=== PATIENT | female | born 1960 | race Caucasian/White ===

== ENCOUNTER → 2017-07-15 09:46 | Outpatient (POV) | payer BC, SELFPAY ==
[2017-07-15 10:15] VITALS: BP 117/62; PULSE 62; RESP 18; BMI 33.4
--- NOTE | 2017-07-15 10:42 | P.CONS_ITS ---
[facility] Pain Management SOAP Note Subjective:: This patient is a pleasant 57-year-old white female who we are treating for low back pain with lumbar radiculopathy symptoms as well as sacroiliitis. She currently has an intrathecal hydromorphone/bupivacaine pain pump in place currently going at 0.75 mg per day. She is doing very well with her pump. She also did very well after the last right SI joint injection a month ago. She is active with less pain. She has no complaints at this time. Objective:: Alert and oriented ?3 in no acute distress. Patient has a normal gait. Motor strength of the lower extremities is 5/5. There is no gross sensory deficit. Pump interrogation shows intrathecal Dilaudid 10 mg/mL plus bupivacaine 5 mg per male currently going at 0.75 mg per day. Refill date at [facility] is 10/08/2017. Assessment:: Degenerative disc disease of lumbar spine with lumbar radiculopathy symptoms and postlaminectomy syndrome of lumbar spine Plan:: I am very pleased with her progress. She got good benefit from the right SI joint injection. She is also doing very well with her intrathecal Dilaudid/ bupivacaine pain pump. We will see her at her next pump refill in September.
== END ==
PROVIDERS: PCP Internal Medicine; Visit Provider Anesthesiology
DX: M51.16 Intervertebral disc disorders with radiculopathy, lumbar region (principal)
CPT/HCPCS: 99212

== ENCOUNTER 2017-08-01 06:07 | Day surgery (SDC) | payer BC, SELFPAY ==
[2017-07-31 10:51] VITALS: BMI 33.4
[2017-08-01] VITALS (16 sets, daily range): BP systolic 95–137; BP diastolic 52–81; PULSE 56–664; RESP 16–18; TEMP 6.1–43; O2SAT 93–100
[2017-08-01 07:03] LABS: POC Glucose,Bedside 93 mg/dL
--- NOTE | 2017-08-01 07:03 | P.PN_ITS ---
[facility] Anesthesia Checklist - Structural Data Admitted From: Home Planned Operative Procedure/s: hammertoe repair Consent for Planned Operative Procedure(s) Verified: Yes Verified Documents: Surgical Consent - NPO Status Verified Time NPO: 12:00 - Airway Assessment C-Spine Mobility Assessed: Yes TMJ Mobility Assessed: Yes Dentition: Good Dentition - Neurological Assessment Level of Consciousness: Awake, Alert - Anesthesia Plan Anesthesia Risk discussed: Yes Anesthesia Plan: Verified ASA Class: II Anesthesia Type: General [facility] Anesthesia HX Medical History: Reports:: Congestive Heart Failure, Diabetes Mellitus Type 2 ( DIET CONTROLLED), Gastroesophageal Reflux Disease(GERD), Hypertension, Migraine Denies:: Aneurysm, Arrhythmia, Asthma, Atrial Fibrillation, Cancer, Chronic Obstructive Pulmonary Disease (COPD), Coronary Artery Disease, Cerebrovascular Accident, Deep Vein Thrombosis, Diabetes Mellitus Type 1, Gastrointestinal Bleed , Hyperlipidemia, Internal Pacemaker, Kidney Stones, MRSA, Myocardial Infarction , Osteoporosis, Peripheral Artery Disease, Pulmonary Embolism, Renal Disease, Seizures, Supraventricular Tachycardia, Transient Ischemic Attacks (TIA), Valvular Heart Disease Other Medical History: Reports: Anemia, Arthritis, Cataracts (had them removed last year), Fibromyalgia. Denies: Blood Transfusion Reaction, Chemotherapy, Glaucoma, Acquired Immunodeficiency Syndrome (AIDS), HIV, Hoarseness, Hormone Therapy, Hypothyroidism, Liver Disease, Osteoporosis, Radiation Therapy, Sickle Cell Disease, Sinus Problems, Thyroid Disease, Unexplained Bleeding Laterality Cases: Right: Arthroscopy Knee Other Surgeries: Yes: Hysterectomy-Total, Other (stomach bypass, 4 hammertoes). No: Pacemaker Amputation: No Fractures: No Comment: [place] *Family Hx:: Diabetes, Heart Attack, Cancer, Hyperlipidemia, Hypertension, Kidney Disease, Thyroid Disorder
--- NOTE | 2017-08-01 08:22 | XR_ITS ---
XR foot RT 2V HISTORY: ITS.REASON: HAMMER TOE ORDERING PHYSICIAN: Kaela Lo DPM PATIENT AGE: 57 years COMPARISON: None FINDINGS: Multiple images submitted with the C-arm show interval placement of a pin through the distal middle and into the proximal phalanx of the third toe with straightening of the hammertoe deformity. Fluoroscopy time: 13 seconds. IMPRESSION: Postsurgical changes of the third toe as described above
--- NOTE | 2017-08-01 08:28 | HMH.OPNOTE ---
Date of procedure: 08/01/17 Pre-op Diagnosis:: Right 3rd digit hammertoe Post-op diagnosis:: same Procedure performed:: Right 3rd digit DIPJ AP Right 3rd digit PIPJ AD Surgeon:: Kaela Lo DPM REVIEW RN:: Philip Jamison Anesthesia: MAC Estimated blood loss (mL): 10 Clinical Note:: Ms. Kennedy is a pleasant 57 y/o diabetic female who presents for evaluation of painful right third digit hammertoe. Patient has had a history of hammertoes and surgical repair without complication. Over 10 years ago she had the left than the right second hammertoe repaired. She was seeing Dr. Jarett Noyola and had x-rays taken 02/05/16 of both feet for preop evaluation of 4th digit hammertoe surgery. She ended up having the surgery done to the left fourth toe on both sides in [place] by another physican about a year ago with no complications. Patient states she had a post op shoe and K-wire pins for 4 weeks. Patient complains of continued pain to the right third toe and states that the third toe now goes underneath the second which makes it painful to walk. She is wearing wider shoes which does help some. Pain is constant night and day. She has tried taping, sleeves, strapping which does not help anymore. She complains of the third toe is stiff and rigid and will not move from underneath the second. Patient is requesting surgical intervention. Patient is a well-controlled diabetic. Last A1c 03/26/17 5.9. She checks her sugars weekly. Her PCP is Dr. De La Torre and she saw him for medical clearance. HAMMERTOE, RIGHT 3RD DIGIT: Radiographs of both feet from 02/05/16 were reviewed and discussed with the patient. Also reviewed x-rays taken 06/09/17 which show fused PIPJ of digits 2 and 4 on right, and 2-4 left. Hammertoe contracture noted to right 3rd digit. We discussed conservative versus surgical treatment options. Conservative treatment options include change in shoe wear, prefab or custom molded inserts, strapping, taping and padding. Patient can also take NSAIDs, ice and elevate for pain and swelling. Discussed that patient would benefit from wider and deeper shoe wear to accommodate the deformity, which she has been wearing. We also discussed the procedure for correcting the hammertoe deformity and length of recovery. Patient would like to proceed with surgery for the right 3rd toe since she has failed conservative care. I discussed conservative vs surgical treatment for the hammertoe deformity. The patient has tried modification of shoe gear, taping, strapping, and has failed conservative treatment. The patient continues to have pain and worsening symptoms, affecting daily activities. I discussed the risks vs benefits of surgery to include: bleeding, infection, nerve or blood vessel damage, need for future surgery, need for removal of the implant, prolonged swelling of the digit, prolonged pain, RSD/CRPS, wound complications, DVT, and anesthetic complications. No guarantees were given. All questions fully answered. The patient verbalized understanding and agreed to proceed with surgery. Consent was obtained. Operative findings:: Right 3rd distal phalanx subluxing medially Right 3rd digit hammertoe Operative note:: On this date and time patient was deemed an appropriate surgical candidate. With informed consent signed, the patient was taken to the operating theater. The patient was positioned supine. MAC anesthesia was induced. Tourniquet was applied to the right mid-calf. Pre-op right ankle block given with 30 cc 0.5% marcaine plain. Right 3rd Digit PIPJ AD: The right lower extremity was prepped and drapped in normal sterile fashion. Tourniquet inflated at 225mmHg. Attention was directed to the right 3rd toe, where a dorsal linear incision was mapped out over the PIPJ extending distally over the DIPJ. Dissection was carried thru skin and sub q tissue, with care to maintain surgical hemostasis. Transverse tenotomy performed at the PIPJ, with release of the medial and lateral co
--- NOTE | 2017-08-01 08:32 | P.OP_ITS ---
Date of procedure: 08/01/17 Pre-op Diagnosis:: Right 3rd digit hammertoe Post-op diagnosis:: same Procedure performed:: Right 3rd digit DIPJ AP Right 3rd digit PIPJ AD Surgeon:: Kaela oL DPM SEED SERVICE ADVISOR:: Philip Jamison Anesthesia: MAC Estimated blood loss (mL): 10 Clinical Note:: Ms. Kennedy is a pleasant 57 y/o diabetic female who presents for evaluation of painful right third digit hammertoe. Patient has had a history of hammertoes and surgical repair without complication. Over 10 years ago she had the left than the right second hammertoe repaired. She was seeing Dr. Jarett Noyola and had x-rays taken of both feet for preop evaluation of 4th digit hammertoe surgery. She ended up having the surgery done to the left fourth toe on both sides in [place] by another physican about a year ago with no complications. Patient states she had a post op shoe and K-wire pins for 4 weeks. Patient complains of continued pain to the right third toe and states that the third toe now goes underneath the second which makes it painful to walk. She is wearing wider shoes which does help some. Pain is constant night and day. She has tried taping, sleeves, strapping which does not help anymore. She complains of the third toe is stiff and rigid and will not move from underneath the second. Patient is requesting surgical intervention. Patient is a well-controlled diabetic. Last A1c 03/26/17 5.9. She checks her sugars weekly. Her PCP is Dr. De La Torre and she saw him for medical clearance. HAMMERTOE, RIGHT 3RD DIGIT: Radiographs of both feet from 02/05/16 were reviewed and discussed with the patient. Also reviewed x-rays taken 06/09/17 which show fused PIPJ of digits 2 and 4 on right, and 2-4 left. Hammertoe contracture noted to right 3rd digit. We discussed conservative versus surgical treatment options. Conservative treatment options include change in shoe wear, prefab or custom molded inserts, strapping, taping and padding. Patient can also take NSAIDs, ice and elevate for pain and swelling. Discussed that patient would benefit from wider and deeper shoe wear to accommodate the deformity, which she has been wearing. We also discussed the procedure for correcting the hammertoe deformity and length of recovery. Patient would like to proceed with surgery for the right 3rd toe since she has failed conservative care. I discussed conservative vs surgical treatment for the hammertoe deformity. The patient has tried modification of shoe gear, taping, strapping, and has failed conservative treatment. The patient continues to have pain and worsening symptoms, affecting daily activities. I discussed the risks vs benefits of surgery to include: bleeding, infection, nerve or blood vessel damage, need for future surgery, need for removal of the implant, prolonged swelling of the digit , prolonged pain, RSD/CRPS, wound complications, DVT, and anesthetic complications. No guarantees were given. All questions fully answered. The patient verbalized understanding and agreed to proceed with surgery. Consent was obtained. Operative findings:: Right 3rd distal phalanx subluxing medially Right 3rd digit hammertoe Operative note:: On this date and time patient was deemed an appropriate surgical candidate. With informed consent signed, the patient was taken to the operating theater. The patient was positioned supine. MAC anesthesia was induced. Tourniquet was applied to the right mid-calf. Pre-op right ankle block given with 30 cc 0.5% marcaine plain. Right 3rd Digit PIPJ AD: The right lower extremity was prepped and drapped in normal sterile fashion. Tourniquet inflated at 225mmHg. Attention was directed to the right 3rd toe, where a
--- NOTE | 2017-08-01 09:18 | CA_ITS ---
CA echo doppler complete PROCEDURE: INDICATIONS FOR THE TEST: Chest pain+ COPD Heart Murmur Tobacco Smoking Palpitations Fatigue Syncope Edema Hypertension Diabetes Mellitus Rheumatic Fever SOB OREILLY Obesity+Hyperlipidemia Family History HD Additional History Patient began experiencing chest pain post toe surgery today PATIENT INFORMATION HEIGHT: 68 WEIGHT: 220 GENDER: Female B/P: 137/78 2-D/M-MODE INTERPRETATION: 2-D MEASUREMENTS OBSERVED VALUES IN CMS Right Ventricular Dimension (RVDd) 1.5 Interventricular Septum (Thickness)(IVsd) 1.2 Left Ventricular Internal Dimensions(LVIDd) 5.2 Left Ventricular Posterior Wall (Thickness)(LVPWd) 1.2 Aortic Root 3.1 Aortic Cusp Separation 2.1 Left Atrial Dimensions (LAD) 4.1 2D 1. Left atrium is mildly enlarged, left ventricle is normal size, there is mild concentric left ventricular hypertrophy, visually estimated ejection fraction 55% with no obvious regional wall motion abnormality. 2. The right atrium and right ventricle are normal size and contractility. 3. The aortic valve is minimally thickened and fibrosed. 4. The mitral and tricuspid valve are structurally normal 5. The pulmonic valve is poorly visualized. 6. No significant pericardial effusion noted. DOPPLER INTERROGATION: Doppler interrogation of the aortic, mitral and tricuspid valvular presence of mild mitral and tricuspid regurgitation, tricuspid and jet velocity is insufficient for calculation of the right ventricular systolic pressure, grade 1 diastolic dysfunction seen without tissue Doppler evidence of raised left atrial pressure. CONCLUSION: 1. Mildly enlarged left atrium, normal left ventricular size, mild concentric left ventricular hypertrophy, visually estimated ejection fraction 55% with no obvious regional wall motion abnormality, grade 1 diastolic dysfunction seen without tissue Doppler evidence of raised left atrial pressure. 2. Mild mitral and tricuspid regurgitation. 3. No significant pericardial effusion noted.
--- NOTE | 2017-08-01 09:20 | XR_ITS ---
XR chest portable HISTORY: Chest pain after surgery ITS.REASON: CHEST PAIN ORDERING PHYSICIAN: Kaela Lo DPM PATIENT AGE: 57 years COMPARISON: 06/26/2017 FINDINGS: There are low lung volumes with mild prominence of the cardiac silhouette likely related to the poor inspiration. There is evidence of old granulomatous disease and there is some minimal atelectatic change in the lung bases. No lobar consolidation or collapse. No evidence of pneumothorax. No acute bony anomalies. IMPRESSION: Low lung volumes with mild bibasilar atelectasis.
--- NOTE | 2017-08-01 10:28 | SUR.OPER ---
Injection @ 0034. Cut @ 1380. Pt has bruising noted to arm prior to coming into OR.
--- NOTE | 2017-08-01 11:28 | HMH.NBBLANK ---
[facility] Blank Note Date: 08/01/17 Time: 11:28 Narrative:: Cardiology consult note: Briefly Mrs. Kennedy is a pleasant 57-year-old female with history of hypertension , hyperlipidemia and diabetes, she had a cardiac cath done in April 2016 which shows normal coronary arteries, preserved left ventricular systolic function. She was electively admitted for outpatient to surgery, which she underwent this morning, postoperatively she developed chest discomfort which she described pressure and sharp pain worse with breathing. She describes no orthopnea. Afebrile chills nausea vomiting dizziness or syncope. Prior to this admission there was no symptoms suggestive of angina or congestive heart failure. Allergies: Cephalexin, morphine and penicillin. Social and family history is noncontributory Past medical history: Hypertension Diabetes Hyperlipidemia No history of coronary artery disease or prior myocardial infarction. Medications Home Medications aripiprazole 5 mg tablet 5 mg PO QDAY 07/16/17 [History Confirmed 08/01/17] ascorbic acid (vitamin C) 500 mg tablet 500 mg PO QDAY 07/16/17 [History Confirmed 08/01/17] aspirin 81 mg tablet,delayed release 81 mg PO QDAY 07/16/17 [History Confirmed 08/01/17] carvedilol 12.5 mg tablet 12.5 mg PO BID 07/16/17 [History Confirmed 08/01/17] cholecalciferol (vitamin D3) 400 unit capsule 400 unit PO QDAY 07/16/17 [History Confirmed 08/01/17] diclofenac 75 mg-misoprostol 200 mcg tablet,immediate,delayed release 1 tab PO BID 07/16/17 [History Confirmed 08/01/17] duloxetine 20 mg capsule,delayed release 30 mg PO QDAY 07/16/17 [History Confirmed 08/01/17] ferrous sulfate ER 142 mg (45 mg iron) tablet,extended release 142 mg PO QDAY tab 07/16/17 [History Confirmed 08/01/17] ibuprofen 800 mg tablet 800 mg PO ONCE 07/16/17 [History Confirmed 07/31/17] lamotrigine ER 300 mg tablet,extended release 24 hr 200 mg PO QDAY tab 07/16/17 [History Confirmed 08/01/17] montelukast 10 mg tablet 10 mg PO QHS 07/16/17 [History Confirmed 08/01/17] omeprazole 40 mg capsule,delayed release 40 mg PO QDAY 07/16/17 [History Confirmed 08/01/17] oxcarbazepine 300 mg tablet 300 mg PO BID 07/16/17 [History Confirmed 08/01/17] ranitidine 300 mg capsule 300 mg PO QHS 07/16/17 [History Confirmed 08/01/17] triamterene 37.5 mg-hydrochlorothiazide 25 mg tablet 1 tab PO QDAY 07/16/17 [History Confirmed 08/01/17] Bupivacaine HCl/Pf [Bupivacaine 0.25% Syringe] 0.38 mg IT DAILY 07/31/17 [History Confirmed 08/01/17] Gabapentin [Gabapentin 800mg Tab] 800 mg PO DAILY 07/31/17 [History Confirmed 08/01/17] Hydromorphone HCl/Pf [Dilaudid 0.5mg/0.5ml inj] 0.75 mg IT DAILY 07/31/17 [History Confirmed 08/01/17] Lactated Ringer's (Lactated Ringer's 1000 Ml Bag) 1,000 mls @ 25 mls/hr IV .Q25H ANDI Stop: 08/02/17 22:29 Last Admin: 08/01/17 06:27 Dose: 25 mls/hr Physical exam Vital Signs Temp Pulse Resp BP Pulse Ox 08/01/17 10:51 65 18 95/62 93 L 08/01/17 10:33 664 H 16 119/64 94 L 08/01/17 10:20 64 16 115/70 94 L 08/01/17 10:02 63 16 133/80 99 08/01/17 09:50 63 16 137/78 99 08/01/17 09:35 63 18 117/78 99 08/01/17 09:20 58 L 18 126/81 100 08/01/17 09:05 56 L 18 131/80 100 08/01/17 08:50 65 18 126/79 100 08/01/17 08:35 67 18 121/58 96 08/01/17 08:20 98.0 F 68 18 136/71 99 08/01/17 06:35 98.0 F 72 18 131/60 97 HEENT examination no JVP no bruits no thyromegaly Lungs are clear to auscultation Cardiac exam S1-S2 no S3 Abdomen soft bowel sounds present Extremities are without clubbing cyanosis or edema Impression: 1 atypical chest pain noncardiac, a stat bedside echocardiogram showed normal left ventricular size and function without segmental wall motion abnormality, with grade 1 diastolic dysfunction. 2. Hypertension hypertensive heart disease 3. Hyperlipidemia 4. Diabetes mellitus. Recommend: No further cardiac workup is necessary at this point. As this is noncardiac chest pain
--- NOTE | 2017-08-01 11:34 | P.PN_ITS ---
[facility] Blank Note Date: 08/01/17 Time: 11:28 Narrative:: Cardiology consult note: Briefly Mrs. Kennedy is a pleasant 57-year-old female with history of hypertension , hyperlipidemia and diabetes, she had a cardiac cath done in April 2016 which shows normal coronary arteries, preserved left ventricular systolic function. She was electively admitted for outpatient to surgery, which she underwent this morning, postoperatively she developed chest discomfort which she described pressure and sharp pain worse with breathing. She describes no orthopnea. Afebrile chills nausea vomiting dizziness or syncope. Prior to this admission there was no symptoms suggestive of angina or congestive heart failure. Allergies: Cephalexin, morphine and penicillin. Social and family history is noncontributory Past medical history: Hypertension Diabetes Hyperlipidemia No history of coronary artery disease or prior myocardial infarction. Medications Home Medications aripiprazole 5 mg tablet 5 mg PO QDAY 07/16/17 [History Confirmed 08/01/17] ascorbic acid (vitamin C) 500 mg tablet 500 mg PO QDAY 07/16/17 [History Confirmed 08/01/17] aspirin 81 mg tablet,delayed release 81 mg PO QDAY 07/16/17 [History Confirmed 08/01/17] carvedilol 12.5 mg tablet 12.5 mg PO BID 07/16/17 [History Confirmed 08/01/17] cholecalciferol (vitamin D3) 400 unit capsule 400 unit PO QDAY 07/16/17 [ History Confirmed 08/01/17] diclofenac 75 mg-misoprostol 200 mcg tablet,immediate,delayed release 1 tab PO BID 07/16/17 [History Confirmed 08/01/17] duloxetine 20 mg capsule,delayed release 30 mg PO QDAY 07/16/17 [History Confirmed 08/01/17] ferrous sulfate ER 142 mg (45 mg iron) tablet,extended release 142 mg PO QDAY tab 07/16/17 [History Confirmed 08/01/17] ibuprofen 800 mg tablet 800 mg PO ONCE 07/16/17 [History Confirmed 07/31/17] lamotrigine ER 300 mg tablet,extended release 24 hr 200 mg PO QDAY tab [History Confirmed 08/01/17] montelukast 10 mg tablet 10 mg PO QHS 07/16/17 [History Confirmed 08/01/17] omeprazole 40 mg capsule,delayed release 40 mg PO QDAY 07/16/17 [History Confirmed 08/01/17] oxcarbazepine 300 mg tablet 300 mg PO BID 07/16/17 [History Confirmed 08/01/17] ranitidine 300 mg capsule 300 mg PO QHS 07/16/17 [History Confirmed 08/01/17] triamterene 37.5 mg-hydrochlorothiazide 25 mg tablet 1 tab PO QDAY 07/16/17 [ History Confirmed 08/01/17] Bupivacaine HCl/Pf [Bupivacaine 0.25% Syringe] 0.38 mg IT DAILY 07/31/17 [ History Confirmed 08/01/17] Gabapentin [Gabapentin 800mg Tab] 800 mg PO DAILY 07/31/17 [History Confirmed ] Hydromorphone HCl/Pf [Dilaudid 0.5mg/0.5ml inj] 0.75 mg IT DAILY 07/31/17 [ History Confirmed 08/01/17] Lactated Ringer's (Lactated Ringer's 1000 Ml Bag) 1,000 mls @ 25 mls/hr IV .Q25H ANDI Stop: 08/02/17 22:29 Last Admin: 08/01/17 06:27 Dose: 25 mls/hr Physical exam Vital Signs Temp Pulse Resp BP Pulse Ox 08/01/17 10:51 65 18 95/62 93 L 08/01/17 10:33 664 H 16 119/64 94 L 08/01/17 10:20 64 16 115/70 94 L 08/01/17 10:02 63 16 133/80 99 08/01/17 09:50 63 16 137/78 99 08/01/17 09:35 63 18 117/78 99 08/01/17 09:20 58 L 18 126/81 100 08/01/17 09:05 56 L 18 131/80 100 08/01/17 08:50 65 18 126/79 100 08/01/17 08:35 67 18 121/58 96 08/01/17 08:20 98.0 F 68 18 136/71 99 08/01/17 06:35 98.0 F 72 18 131/60 97 HEENT examination no JVP no bruits no thyromegaly Lungs are clear to auscultation Cardiac exam S1-S2 no S3 Abdomen soft bowel sounds present Extre
--- NOTE | 2017-08-01 12:08 | XR_ITS ---
XR foot RT min 3V HISTORY: Surgery follow-up ITS.REASON: post op ORDERING PHYSICIAN: Kaela Lo DPM PATIENT AGE: 57 years COMPARISON: 06/09/2017 FINDINGS: A wire has been placed extending from the tip of the distal phalanx to the proximal aspect of the proximal phalanx of the third toe with resultant straightening of the flexion deformity with good alignment. No change chronic deformity proximal phalanx of the fifth toe. IMPRESSION: Postsurgical changes of the third toe as described above
== END 2017-08-01 12:28 | disposition home or self-care (01) ==
PROVIDERS: Family Provider Nurse Practitioner Family; PCP Internal Medicine; Visit Provider Podiatrist
PROC: (CPT 28285; principal; 2017-08-01 07:30)
DX: M20.41 Other hammer toe(s) (acquired), right foot (principal); E11.9 Type 2 diabetes mellitus without complications; I50.9 Heart failure, unspecified
CPT/HCPCS: 28285; 71045; 73620; 73630; 76000; 82962; 93005; 93306; 96374; C1762

== ENCOUNTER → 2017-08-19 08:09 | Outpatient (CLI) | payer BC, SELFPAY ==
--- NOTE | 2017-08-19 | XR_ITS ---
XR foot RT min 3V HISTORY: Follow-up surgery ITS.REASON: POST OP VIEWS..FIXED 3RD HAMMER TOE ORDERING PHYSICIAN: Kaela Lo DPM PATIENT AGE: 57 years COMPARISON: 08/01/2017 FINDINGS: There is been notable change in the prior osteotomy of the distal aspect of the proximal phalanx of the third toe with displacement Y or extending from the tip of the distal phalanx into the proximal aspect of the proximal phalanx with good alignment. Prior fusion of the PIP of the second toe. Flexion deformity involving the fifth toe with mild lateral subluxation of the middle phalanx of the fifth toe. IMPRESSION: Overall no change in good alignment postsurgical changes of the third toe
== END ==
PROVIDERS: Visit Provider Podiatrist
DX: Z98.890 Other specified postprocedural states (principal)
CPT/HCPCS: 73630

== ENCOUNTER → 2017-09-02 08:06 | Outpatient (CLI) | payer BC, SELFPAY ==
--- NOTE | 2017-09-02 | XR_ITS ---
XR foot RT min 3V HISTORY: Follow-up surgery ITS.REASON: POST OP HAMMER TOE ORDERING PHYSICIAN: Kaela Lo DPM PATIENT AGE: 57 years COMPARISON: 08 19 17 FINDINGS: Remains a hand within the third toe extending from the distal phalanx to the proximal phalanx. There is been osteotomy of the PIP joint. There has been prior fusion of the PIP of the second toe. There remains mild lateral subluxation of the distal phalanx of the fifth toe. IMPRESSION: Overall no change status post osteotomy of the PIP joint of the third digit with fixation pin present
== END ==
PROVIDERS: Visit Provider Podiatrist
DX: Z98.890 Other specified postprocedural states (principal)
CPT/HCPCS: 73630

== ENCOUNTER → 2017-09-08 10:32 | Outpatient (POV) | payer BC, SELFPAY ==
[2017-09-08 10:48] VITALS: BP 135/75; PULSE 60; RESP 16; O2SAT 97; BMI 33.4
--- NOTE | 2017-09-08 12:49 | HMH.PAINSOAP ---
[facility] Pain Management SOAP Note Subjective:: Patient is a pleasant 57-year-old white female who we are treating in our pain clinic for pain secondary to degenerative disc disease of the lumbar spine, postlaminectomy syndrome of the lumbar spine, sacroiliitis. Patient has had right SI joint injections in the past. She has done very well with these she has had up to 90% relief for several weeks after the injections. Patient is interested in discussing of right SI rhizotomy. Patient is currently being managed for her back pain with intrathecal pain pump. Patient has Dilaudid 0.75 mg a day and bupivacaine 0.375 mg a day. Patient states her back pain is doing fairly well today. Patient is also on gabapentin 800 mg 4 times a day. Patient states that this is not helping her radicular symptoms. 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 Patient rates her pain at 7 out of 10 today. She states her pain is achy and dull and at some points shocking. Patient is looking for more long-term relief options in order to be more functional and continue working. Patient has recently had hammertoe surgery and been released by her casing blower. ROS General: no recent weight change, no fever, no sleep disturbances Respiratory: no cough, no shortness of air, no recurring pulmonary infections Cardiovascular/Peripheral Vascular: No chest pain, No palpitations, no edema, no shortness of breath. Gastrointestinal: no incontinence, normal bowel movements reported Genitourinary: no incontinence Musculoskeletal: Bilateral sacroiliitis, chronic lumbar back pain Psychiatric: normal mood/ affect Neurological: [denies weakness in extremities], [denies balance issues] Objective:: Physical Exam General: Alert and oriented x3, no acute distress, pleasant and cooperative, [on room air] Lungs: Resps E/U, Symmetrical chest expansion, Eyes: PERRL Musculoskeletal: Flexion and extension of lumbar spine somewhat guarded secondary to pain, deep tendon reflexes normal, strength in upper and lower extremities [5/5], [abnormal gait noted], positive Maverick's test on the right side, extreme point tenderness over right SI joint Neurological: speech clear, drawer in plain loom equal, no gross sensory deficits Assessment:: Right sacroiliitis, postlaminectomy syndrome, degenerative disc disease of the lumbar spine with lumbar radiculopathy Plan:: We will plan a right SI joint rhizotomy. We will also increase her bupivacaine in her pump to 10 mg/mL at her next pump refill. We will not make any pump adjustments at this time. Patient has tried and failed physical therapy, anti-inflammatories, medications. Patient has had good long-term relief with her right SI joint injections. This note was dictated using voice recognition software and may contain errors or omissions
--- NOTE | 2017-09-08 12:52 | P.CONS_ITS ---
[facility] Pain Management SOAP Note Subjective:: Patient is a pleasant 57-year-old white female who we are treating in our pain clinic for pain secondary to degenerative disc disease of the lumbar spine, postlaminectomy syndrome of the lumbar spine, sacroiliitis. Patient has had right SI joint injections in the past. She has done very well with these she has had up to 90% relief for several weeks after the injections. Patient is interested in discussing of right SI rhizotomy. Patient is currently being managed for her back pain with intrathecal pain pump. Patient has Dilaudid 0.75 mg a day and bupivacaine 0.375 mg a day. Patient states her back pain is doing fairly well today. Patient is also on gabapentin 800 mg 4 times a day. Patient states that this is not helping her radicular symptoms. 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 Patient rates her pain at 7 out of 10 today. She states her pain is achy and dull and at some points shocking. Patient is looking for more long-term relief options in order to be more functional and continue working. Patient has recently had hammertoe surgery and been released by her agricultural purchasing agent. ROS General: no recent weight change, no fever, no sleep disturbances Respiratory: no cough, no shortness of air, no recurring pulmonary infections Cardiovascular/Peripheral Vascular: No chest pain, No palpitations, no edema, no shortness of breath. Gastrointestinal: no incontinence, normal bowel movements reported Genitourinary: no incontinence Musculoskeletal: Bilateral sacroiliitis, chronic lumbar back pain Psychiatric: normal mood/ affect Neurological: [denies weakness in extremities], [denies balance issues] Objective:: Physical Exam General: Alert and oriented x3, no acute distress, pleasant and cooperative, [ on room air] Lungs: Resps E/U, Symmetrical chest expansion, Eyes: PERRL Musculoskeletal: Flexion and extension of lumbar spine somewhat guarded secondary to pain, deep tendon reflexes normal, strength in upper and lower extremities [5/5], [abnormal gait noted], positive Maverick's test on the right side, extreme point tenderness over right SI joint Neurological: speech clear, associate professor of communication equal, no gross sensory deficits Assessment:: Right sacroiliitis, postlaminectomy syndrome, degenerative disc disease of the lumbar spine with lumbar radiculopathy Plan:: We will plan a right SI joint rhizotomy. We will also increase her bupivacaine in her pump to 10 mg/mL at her next pump refill. We will not make any pump adjustments at this time. Patient has tried and failed physical therapy, anti- inflammatories, medications. Patient has had good long-term relief with her right SI joint injections. This note was dictated using voice recognition software and may contain errors or omissions
== END ==
PROVIDERS: Family Provider Nurse Practitioner Family; PCP Internal Medicine; Visit Provider Clinical Nurse Specialist Family Health
DX: M96.1 Postlaminectomy syndrome, not elsewhere classified (principal); M46.1 Sacroiliitis, not elsewhere classified
CPT/HCPCS: 99212

== ENCOUNTER → 2017-10-14 09:58 | Outpatient (POV) | payer BC, SELFPAY ==
[2017-10-14 10:04] VITALS: BP 135/66; PULSE 71; RESP 20; O2SAT 97; BMI 34.9
--- NOTE | 2017-10-14 10:36 | HMH.PAINSOAP ---
[facility] Pain Management SOAP Note Subjective:: Patient is a pleasant 57-year-old white female who are treating in our pain clinic for pain secondary to degenerative disc disease of the lumbar spine, post ectomy syndrome of the lumbar spine, sacroiliitis. Patient has had her SI joint injections in the past. She has done very well with the she has had up to 90% relief for several weeks after the injections. Patient and I discussed SI rhizotomy at her last visit however her insurance denied this. Patient is currently being managed for her back pain with an intrathecal pain pump patient has Dilaudid 0.75 mg a day and bupivacaine 0.375 mg a day patient states that this manages her back pain almost completely. Patient also on gabapentin 800 mg 1 p.o. 4 times daily. Patient has not tried Lyrica. I believe this change may be beneficial for her due to her nerve pain and radicular pain. 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 Patient rates her pain a 5 out of 10 today. She states her pain is achy and dull and at some points shocking. ROS General: no recent weight change, no fever, no sleep disturbances Respiratory: no cough, no shortness of air, no recurring pulmonary infections Cardiovascular/Peripheral Vascular: No chest pain, No palpitations, no edema, no shortness of breath. Gastrointestinal: no incontinence, normal bowel movements reported Genitourinary: no incontinence Musculoskeletal: Bilateral sacroiliitis, chronic lumbar back pain Psychiatric: normal mood/ affect, Neurological: [denies weakness in extremities], [denies balance issues] Objective:: Physical Exam General: Alert and oriented x3, no acute distress, pleasant and cooperative, [on room air] Lungs: Resps E/U, Symmetrical chest expansion, Eyes: PERRL Musculoskeletal: Flexion and extension of lumbar spine somewhat guarded secondary to pain, deep tendon reflexes normal, strength in upper and lower extremities [5/5], slightly antalgic gait noted, positive Maverick's test bilaterally, extreme point tenderness over bilateral SI joints Neurological: speech clear, automation software engineer equal, no gross sensory deficits Assessment:: Degenerative disc disease of the lumbar spine, lumbar radiculopathy, postlaminectomy syndrome of the lumbar spine, bilateral sacroiliitis Plan:: We will call in Lyrica 75 mg 1 p.o. twice daily for the patient. She will stop taking her gabapentin. Patient's tried and failed gabapentin, amitriptyline, Cymbalta. Patient's tried and failed anti-inflammatories and physical therapy. We will schedule bilateral SI joint injections for this patient due to her recent insurance denial for her risotto me of her SI joint. We will also send her to Dr. Rand for an evaluation of an SI joint fusion. Patient and I also discussed possibly a neurostimulator. We will follow-up with this patient at her next pain pump refill. This note was dictated using voice recognition software and may contain errors or omissions
--- NOTE | 2017-10-14 10:40 | P.CONS_ITS ---
[facility] Pain Management SOAP Note Subjective:: Patient is a pleasant 57-year-old white female who are treating in our pain clinic for pain secondary to degenerative disc disease of the lumbar spine, post ectomy syndrome of the lumbar spine, sacroiliitis. Patient has had her SI joint injections in the past. She has done very well with the she has had up to 90% relief for several weeks after the injections. Patient and I discussed SI rhizotomy at her last visit however her insurance denied this. Patient is currently being managed for her back pain with an intrathecal pain pump patient has Dilaudid 0.75 mg a day and bupivacaine 0.375 mg a day patient states that this manages her back pain almost completely. Patient also on gabapentin 800 mg 1 p.o. 4 times daily. Patient has not tried Lyrica. I believe this change may be beneficial for her due to her nerve pain and radicular pain. 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 Patient rates her pain a 5 out of 10 today. She states her pain is achy and dull and at some points shocking. ROS General: no recent weight change, no fever, no sleep disturbances Respiratory: no cough, no shortness of air, no recurring pulmonary infections Cardiovascular/Peripheral Vascular: No chest pain, No palpitations, no edema, no shortness of breath. Gastrointestinal: no incontinence, normal bowel movements reported Genitourinary: no incontinence Musculoskeletal: Bilateral sacroiliitis, chronic lumbar back pain Psychiatric: normal mood/ affect, Neurological: [denies weakness in extremities], [denies balance issues] Objective:: Physical Exam General: Alert and oriented x3, no acute distress, pleasant and cooperative, [ on room air] Lungs: Resps E/U, Symmetrical chest expansion, Eyes: PERRL Musculoskeletal: Flexion and extension of lumbar spine somewhat guarded secondary to pain, deep tendon reflexes normal, strength in upper and lower extremities [5/5], slightly antalgic gait noted, positive Maverick's test bilaterally, extreme point tenderness over bilateral SI joints Neurological: speech clear, body shop supervisor equal, no gross sensory deficits Assessment:: Degenerative disc disease of the lumbar spine, lumbar radiculopathy, postlaminectomy syndrome of the lumbar spine, bilateral sacroiliitis Plan:: We will call in Lyrica 75 mg 1 p.o. twice daily for the patient. She will stop taking her gabapentin. Patient's tried and failed gabapentin, amitriptyline, Cymbalta. Patient's tried and failed anti-inflammatories and physical therapy. We will schedule bilateral SI joint injections for this patient due to her recent insurance denial for her risotto me of her SI joint. We will also send her to Dr. Rand for an evaluation of an SI joint fusion. Patient and I also discussed possibly a neurostimulator. We will follow-up with this patient at her next pain pump refill. This note was dictated using voice recognition software and may contain errors or omissions
[2017-10-14 12:44] LABS: Amphetamine/Metha Screen,Urine Negative ng/mL (<1000); Barbiturates Screen,Urine Negative ng/mL (<200); Benzodiazepines Screen,Urine Negative ng/mL (200); Cannabinoid Screen,Urine Negative ng/mL (<50); Cocaine Screen,Urine Negative ng/g (<300); Methadone Screen,Urine Negative ng/mL (<300); Opiate Screen,Urine Positive ng/mL (<300); Phencyclidine Screen,Urine Negative ng/mL (<25)
--- NOTE | 2017-10-14 13:32 | PC.PHONENOTE ---
called in Rx for Lyrica 75mg BID with 2 refills and cancelled RX for Gabapentin
[2017-10-21 16:29] LABS: Codeine Negative (Cutoff=100); Hydrocodone Negative (Cutoff=100); Hydromorphone Positive (.); Morphine Negative (Cutoff=100)
[2017-10-23 15:49] LABS: Opiates Positive (.)
== END ==
PROVIDERS: Family Provider Nurse Practitioner Family; PCP Internal Medicine; Visit Provider Clinical Nurse Specialist Family Health
DX: M51.16 Intervertebral disc disorders with radiculopathy, lumbar region (principal); Z79.899 Other long term (current) drug therapy
CPT/HCPCS: 80305; 80361; 80365; 99212; G0480

== ENCOUNTER → 2017-11-24 14:41 | Outpatient (POV) | payer BC, SELFPAY ==
[2017-11-24 15:04] VITALS: BP 148/85; PULSE 67; RESP 20; TEMP 36.6; O2SAT 99; BMI 36.0
--- NOTE | 2017-11-24 15:19 | HMH.PAINSOAP ---
[facility] Pain Management SOAP Note Subjective:: She is a pleasant 57-year-old white female who presents today for follow-up. Patient recently had bilateral SI joint injections. She states that she is 80-90% her. Patient is having a new onset of bilateral leg weakness. Patient states that she has this sensation of her legs giving way on her. Patient rates her pain a 7 out of 10 today. Patient is currently on an intrathecal pain pump that has Dilaudid at 0.75 mg a day with bupivacaine at 0.375 mg a day. Patient rates her pain a 5 out of 10 today. Patient states that intrathecal pain pump helps with most of her back pain.. ROS General: no recent weight change, no fever, no sleep disturbances Respiratory: no cough, no shortness of air, no recurring pulmonary infections Cardiovascular/Peripheral Vascular: No chest pain, No palpitations, no edema, no shortness of breath. Gastrointestinal: no incontinence, normal bowel movements reported Genitourinary: no incontinence Musculoskeletal: Lateral sacroiliitis, chronic lumbar back pain Psychiatric: normal mood/ affect, [denies depression], [denies anxiety] Neurological: New onset of bilateral leg weakness, [denies balance issues] Objective:: Physical Exam General: Alert and oriented x3, no acute distress, pleasant and cooperative, [on room air] Lungs: Resps E/U, Symmetrical chest expansion, Eyes: PERRL Musculoskeletal: Flexion and extension of lumbar spine somewhat guarded secondary to pain, deep tendon reflexes normal, strength in upper and lower extremities [5/5], [abnormal gait noted], bilateral straight leg raise test positive at 30? Neurological: speech clear, director of trauma equal, no gross sensory deficits Assessment:: Degenerative disc disease of the lumbar spine, lumbar radiculopathy, postlaminectomy syndrome of the lumbar spine, bilateral sacroiliitis, canal stenosis Plan:: Order a new MRI due to the patient's new onset of bilateral lower leg weakness. I believe that this will be beneficial. Patient also has severe canal stenosis in which she gets relief from leaning forward. 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 Discussed this after we see the new MRI results. This note was dictated using voice recognition software and may contain errors or omissions
--- NOTE | 2017-11-24 15:23 | P.CONS_ITS ---
[facility] Pain Management SOAP Note Subjective:: She is a pleasant 57-year-old white female who presents today for follow-up. Patient recently had bilateral SI joint injections. She states that she is 80- 90% her. Patient is having a new onset of bilateral leg weakness. Patient states that she has this sensation of her legs giving way on her. Patient rates her pain a 7 out of 10 today. Patient is currently on an intrathecal pain pump that has Dilaudid at 0.75 mg a day with bupivacaine at 0.375 mg a day. Patient rates her pain a 5 out of 10 today. Patient states that intrathecal pain pump helps with most of her back pain.. ROS General: no recent weight change, no fever, no sleep disturbances Respiratory: no cough, no shortness of air, no recurring pulmonary infections Cardiovascular/Peripheral Vascular: No chest pain, No palpitations, no edema, no shortness of breath. Gastrointestinal: no incontinence, normal bowel movements reported Genitourinary: no incontinence Musculoskeletal: Lateral sacroiliitis, chronic lumbar back pain Psychiatric: normal mood/ affect, [denies depression], [denies anxiety] Neurological: New onset of bilateral leg weakness, [denies balance issues] Objective:: Physical Exam General: Alert and oriented x3, no acute distress, pleasant and cooperative, [ on room air] Lungs: Resps E/U, Symmetrical chest expansion, Eyes: PERRL Musculoskeletal: Flexion and extension of lumbar spine somewhat guarded secondary to pain, deep tendon reflexes normal, strength in upper and lower extremities [5/5], [abnormal gait noted], bilateral straight leg raise test positive at 30? Neurological: speech clear, body painter equal, no gross sensory deficits Assessment:: Degenerative disc disease of the lumbar spine, lumbar radiculopathy, postlaminectomy syndrome of the lumbar spine, bilateral sacroiliitis, canal stenosis Plan:: Order a new MRI due to the patient's new onset of bilateral lower leg weakness. I believe that this will be beneficial. Patient also has severe canal stenosis in which she gets relief from leaning forward. 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 Discussed this after we see the new MRI results. This note was dictated using voice recognition software and may contain errors or omissions
== END ==
PROVIDERS: Family Provider Nurse Practitioner Family; PCP Internal Medicine; Visit Provider Clinical Nurse Specialist Family Health
DX: M54.16 Radiculopathy, lumbar region (principal)
CPT/HCPCS: 99212

== ENCOUNTER → 2017-12-15 11:56 | Outpatient (POV) | payer BC, SELFPAY ==
[2017-12-15 12:07] VITALS: BP 124/64; PULSE 64; RESP 18; O2SAT 98; BMI 33.4
--- NOTE | 2017-12-15 15:53 | HMH.PAINSOAP ---
[facility] Pain Management SOAP Note Subjective:: Patient is a pleasant 57-year-old white female who presents today for follow-up after her most recent MRI. Patient does have spinal stenosis. Patient said that standing for long periods of time or walking makes it worse. Patient states that leaning over alleviates her pain comes. Patient states she does have some weakness of bilateral lower extremities. Patient may be a candidate for mild procedure. Patient currently has an intrathecal pain pump which does quite well for her. Patient is just unable to stand or walk for long periods of time. ROS General: no recent weight change, no fever, no sleep disturbances Respiratory: no cough, no shortness of air, no recurring pulmonary infections Cardiovascular/Peripheral Vascular: No chest pain, No palpitations, no edema, no shortness of breath. Gastrointestinal: no incontinence, normal bowel movements reported Genitourinary: no incontinence Musculoskeletal: Back pain, leg pain Psychiatric: normal mood/ affect Neurological: [denies weakness in extremities], [denies balance issues] Objective:: Physical Exam General: Alert and oriented x3, no acute distress, pleasant and cooperative, [on room air] Lungs: Resps E/U, Symmetrical chest expansion, Eyes: PERRL Musculoskeletal: Flexion and extension of bar spine somewhat guarded secondary to pain, deep tendon reflexes normal, strength in upper and lower extremities [5/5], [abnormal gait noted] Neurological: speech clear, table hand equal, no gross sensory deficits Assessment:: Negative disc disease of lumbar spine, lumbar postlaminectomy syndrome, lumbar radiculopathy, spinal stenosis Plan:: Dr. Ortiz will review the patient's MRI disc on Friday. Patient may be at MILD candidate. We will start the process of getting approval for this. Patient has tried and failed physical therapy, injections, intrathecal medication changes, anti-inflammatories. I will follow-up with this patient at her next intrathecal pain pump refill or after her mild procedure. This note was dictated using voice recognition software and may contain errors or omissions
--- NOTE | 2017-12-15 15:56 | P.CONS_ITS ---
[facility] Pain Management SOAP Note Subjective:: Patient is a pleasant 57-year-old white female who presents today for follow-up after her most recent MRI. Patient does have spinal stenosis. Patient said that standing for long periods of time or walking makes it worse. Patient states that leaning over alleviates her pain comes. Patient states she does have some weakness of bilateral lower extremities. Patient may be a candidate for mild procedure. Patient currently has an intrathecal pain pump which does quite well for her. Patient is just unable to stand or walk for long periods of time. ROS General: no recent weight change, no fever, no sleep disturbances Respiratory: no cough, no shortness of air, no recurring pulmonary infections Cardiovascular/Peripheral Vascular: No chest pain, No palpitations, no edema, no shortness of breath. Gastrointestinal: no incontinence, normal bowel movements reported Genitourinary: no incontinence Musculoskeletal: Back pain, leg pain Psychiatric: normal mood/ affect Neurological: [denies weakness in extremities], [denies balance issues] Objective:: Physical Exam General: Alert and oriented x3, no acute distress, pleasant and cooperative, [ on room air] Lungs: Resps E/U, Symmetrical chest expansion, Eyes: PERRL Musculoskeletal: Flexion and extension of bar spine somewhat guarded secondary to pain, deep tendon reflexes normal, strength in upper and lower extremities [5 /5], [abnormal gait noted] Neurological: speech clear, carbonizer equal, no gross sensory deficits Assessment:: Negative disc disease of lumbar spine, lumbar postlaminectomy syndrome, lumbar radiculopathy, spinal stenosis Plan:: Dr. Ortiz will review the patient's MRI disc on Friday. Patient may be at MILD candidate. We will start the process of getting approval for this. Patient has tried and failed physical therapy, injections, intrathecal medication changes, anti-inflammatories. I will follow-up with this patient at her next intrathecal pain pump refill or after her mild procedure. This note was dictated using voice recognition software and may contain errors or omissions
== END ==
PROVIDERS: Family Provider Nurse Practitioner Family; PCP Internal Medicine; Visit Provider Clinical Nurse Specialist Family Health
DX: M54.16 Radiculopathy, lumbar region (principal); M48.00 Spinal stenosis, site unspecified
CPT/HCPCS: 99212

== ENCOUNTER → 2017-12-22 10:12 | Outpatient (CLI) | payer BC, SELFPAY ==
--- NOTE | 2017-12-22 10:14 | XR_ITS ---
XR DEXA axial skeleton HISTORY: ITS.REASON: POST MENOPAUSAL ORDERING PHYSICIAN: Omar De La Torre PATIENT AGE: 57 years COMPARISON: None FINDINGS: The BMD measured at the Right femoral neck is 0.846 g/cm squared with a T score of -1.4. This is considered Osteopenic according to the World Health Organization criteria. Fracture risk is Moderate. Treatment is advised. IMPRESSION: Osteopenia with moderate fracture risk. Treatment recommended. Recommend follow-up exam December 2019
== END ==
PROVIDERS: Family Provider Nurse Practitioner Family; PCP Internal Medicine; Visit Provider Internal Medicine
DX: N95.9 Unspecified menopausal and perimenopausal disorder (principal)
CPT/HCPCS: 77080

== ENCOUNTER → 2017-12-23 08:55 | Outpatient (POV) | payer BC, SELFPAY ==
[2017-12-23 09:14] VITALS: BP 131/72; PULSE 72; RESP 18; O2SAT 99; BMI 37.1
--- NOTE | 2017-12-23 09:47 | HMH.PMPROC ---
- Procedure Date: 12/23/17 Time: 09:47 Anesthesiologist:: Dennise Hurst APRN Complications:: None Pre-procedure Diagnosis:: Degenerative disc disease of lumbar spine with lumbar postlaminectomy syndrome, lumbar radiculopathy, spinal stenosis Post-procedure Diagnosis:: Same Indications for Procedure:: Patient is a pleasant 57-year-old white female who presents today due to increased pain. Patient is having quite intense low back pain. Patient has a new MRI showing worsening spinal stenosis. Patient does have an intrathecal pain pump with Dilaudid going at 1.3 mg per day with all of her PTCs. Patient rates her pain a 9 out of 10 today. Patient states that it does help when she boluses. Patient states that leaning over alleviates her pain. Patient is interested in getting a walker to help assist with ambulation. Patient and I had talked about a mild procedure in the past however she is not eligible due to her insurance. We will try to utilize epidural injections to help for senior living pain control. We will also make some changes to her intrathecal pain pump today. ROS General: no recent weight change, no fever, no sleep disturbances Respiratory: no cough, no shortness of air, no recurring pulmonary infections Cardiovascular/Peripheral Vascular: No chest pain, No palpitations, no edema, no shortness of breath. Gastrointestinal: no incontinence, normal bowel movements reported Genitourinary: no incontinence Musculoskeletal: Low back pain, leg pain Psychiatric: normal mood/ affect Neurological: Intermittent weakness in bilateral lower extremities, [denies balance issues] Procedure Details:: Informed consent was obtained and the risk and benefits of the procedure were explained to the patient. The patient was taken to the procedure room where noninvasive monitoring was placed including noninvasive blood pressure cuff and pulse oximeter. Patient's pump was interrogated. The patient was given a one-time bolus of 0.15 and was monitored for 20 minutes, patient pain score went down from a 9/10-5/10. The infusion rate was changed to 0.125 every 2 hours with a basal rate of 0.02 mg of Dilaudid/bupivacaine a day. The patient tolerated the procedure well. Plan and Disposition:: We will schedule her an L4-L5 lumbar epidural steroid injection. I believe that this may be beneficial given her symptomology. We did make some changes to her pump today I will see her back in 1 week and reassess her symptoms at that time. We will also write a prescription for a walker with a seat to help with ambulation as I feel she cannot safely ambulate with a cane. Patient has been instructed to call our office if she has any issues prior to her next appointment. This note was dictated using voice recognition software and may contain errors or omissions
--- NOTE | 2018-01-06 14:58 | PC.NURSE ---
tramadol 50mg po tid with 2 refills faxed into clinic pharmacy
== END ==
PROVIDERS: Family Provider Nurse Practitioner Family; PCP Internal Medicine; Visit Provider Clinical Nurse Specialist Family Health
DX: M51.36 Other intervertebral disc degeneration, lumbar region (principal)
CPT/HCPCS: 99212

== ENCOUNTER → 2018-01-13 10:49 | Outpatient (POV) | payer BC, SELFPAY ==
[2018-01-13 12:45] VITALS: BP 114/58; PULSE 64; RESP 18; O2SAT 98; BMI 41.1
--- NOTE | 2018-01-13 13:28 | HMH.PAINSOAP ---
[facility] Pain Management SOAP Note Subjective:: Patient is a pleasant 57-year-old white female who we are treating for low back pain with lumbar radiculopathy. Patient does have a Dilaudid intrathecal pump going at 1.3 mg per day. Patient does have some increasing pain in her low back. Patient follows up from her lumbar epidural steroid injection however she did get some relief she is having worsening pain and numbness and tingling down her legs. Patient and I had a long discussion in regards to treatment options. I believe that the patient would benefit from a neurostimulator trial. I believe that due to the type of pain she is having in the symptomology that she would benefit greatly from this therapy. My goal with this patient is to keep her as functional for as long as possible. She rates her pain an 8 out of 10 today. Mostly down both her legs. Patient has numbness and tingling all the way to her toes ROS General: no recent weight change, no fever, no sleep disturbances Respiratory: no cough, no shortness of air, no recurring pulmonary infections Cardiovascular/Peripheral Vascular: No chest pain, No palpitations, no edema, no shortness of breath. Gastrointestinal: no incontinence, normal bowel movements reported Genitourinary: no incontinence Musculoskeletal: Back pain, bilateral leg pain Psychiatric: normal mood/ affect Neurological: [denies weakness in extremities], [denies balance issues] Objective:: Physical Exam General: Alert and oriented x3, no acute distress, pleasant and cooperative, [on room air] Lungs: Resps E/U, Symmetrical chest expansion, Eyes: PERRL Musculoskeletal: Flexion and extension of lumbar spine somewhat guarded secondary to pain, deep tendon reflexes normal, strength in upper and lower extremities [5/5], [abnormal gait noted] Neurological: speech clear, 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 I believe given her pain symptomology this would be beneficial patient is not on any anticoagulation. Patient's tried and failed injections, intrathecal pain pump adjustments, medications, anti-inflammatories, physical therapy, chiropractic therapy, massage therapy. I will follow-up with the patient after her trial. This note was dictated using voice recognition software and may contain errors or omissions
--- NOTE | 2018-01-13 13:33 | P.CONS_ITS ---
[facility] Pain Management SOAP Note Subjective:: Patient is a pleasant 57-year-old white female who we are treating for low back pain with lumbar radiculopathy. Patient does have a Dilaudid intrathecal pump going at 1.3 mg per day. Patient does have some increasing pain in her low back. Patient follows up from her lumbar epidural steroid injection however she did get some relief she is having worsening pain and numbness and tingling down her legs. Patient and I had a long discussion in regards to treatment options. I believe that the patient would benefit from a neurostimulator trial. I believe that due to the type of pain she is having in the symptomology that she would benefit greatly from this therapy. My goal with this patient is to keep her as functional for as long as possible. She rates her pain an 8 out of 10 today. Mostly down both her legs. Patient has numbness and tingling all the way to her toes ROS General: no recent weight change, no fever, no sleep disturbances Respiratory: no cough, no shortness of air, no recurring pulmonary infections Cardiovascular/Peripheral Vascular: No chest pain, No palpitations, no edema, no shortness of breath. Gastrointestinal: no incontinence, normal bowel movements reported Genitourinary: no incontinence Musculoskeletal: Back pain, bilateral leg pain Psychiatric: normal mood/ affect Neurological: [denies weakness in extremities], [denies balance issues] Objective:: Physical Exam General: Alert and oriented x3, no acute distress, pleasant and cooperative, [ on room air] Lungs: Resps E/U, Symmetrical chest expansion, Eyes: PERRL Musculoskeletal: Flexion and extension of lumbar spine somewhat guarded secondary to pain, deep tendon reflexes normal, strength in upper and lower extremities [5/5], [abnormal gait noted] Neurological: speech clear, hand thermal cutter equal, no gross sensory deficits Assessment:: Degenerative disc disease of the lumbar spine with lumbar radiculopathy symptoms and postlaminectomy syndrome and spinal stenosis Plan:: We will ask for insurance approval for a neurostimulator trial. I believe given her pain symptomology this would be beneficial patient is not on any anticoagulation. Patient's tried and failed injections, intrathecal pain pump adjustments, medications, anti-inflammatories, physical therapy, chiropractic therapy, massage therapy. I will follow-up with the patient after her trial. This note was dictated using voice recognition software and may contain errors or omissions
== END ==
PROVIDERS: Family Provider Nurse Practitioner Family; PCP Internal Medicine; Visit Provider Clinical Nurse Specialist Family Health
DX: M54.16 Radiculopathy, lumbar region (principal)
CPT/HCPCS: 99212

== ENCOUNTER → 2018-01-28 10:02 | Outpatient (POV) | payer BC, SELFPAY ==
[2018-01-28 10:05] VITALS: BP 143/83; PULSE 73; RESP 18; O2SAT 98; BMI 36.0
--- NOTE | 2018-01-28 11:11 | HMH.PMCON ---
Assessment and Plan (1) DDD (degenerative disc disease), lumbar Current visit: Yes Status: Chronic Category: Medical Code(s): M51.36 - Other intervertebral disc degeneration, lumbar region Consideration for pain stimulator implant trial with permanent placement if indicated (2) Post laminectomy syndrome Current visit: Yes Status: Chronic Category: Medical Code(s): M96.1 - Postlaminectomy syndrome, not elsewhere classified Consideration for pain stimulator implant trial with permanent placement if indicated HPI - Data of Consult Patient: new to practice Consult date: 01/28/18 Requesting Physician: Armand Hannon MD Primary Care Provider: Omar De La Torre Family Provider: Katie Muro APRN - Consult Narrative Reason for consult: Consideration for in stimulator implant for pain management History of present illness: Ms. Kennedy is a 57 year old female referred for consideration for placement of a pain stimulator implant for management of residual pain from degenerative disc disease of the lumbar spine as with radiculopathy as well as postlaminectomy syndrome. Patient had an intrathecal pain pump placement in 2016 initially with significant improvement. She is now developing progressive back and lower extremity pain is now being considered for a stimulator implant trial to see if we can improve this pain CC: Armand Hannon MD [facility] History Medical History: Reports:: Congestive Heart Failure, Diabetes Mellitus Type 2, Gastroesophageal Reflux Disease(GERD), Hypertension, Migraine Denies:: Aneurysm, Arrhythmia, Asthma, Atrial Fibrillation, Cancer, Chronic Obstructive Pulmonary Disease (COPD), Coronary Artery Disease, Cerebrovascular Accident, Deep Vein Thrombosis, Diabetes Mellitus Type 1, Gastrointestinal Bleed, Hyperlipidemia, Internal Pacemaker, Kidney Stones, MRSA, Myocardial Infarction, Osteoporosis, Peripheral Artery Disease, Pulmonary Embolism, Renal Disease, Seizures, Supraventricular Tachycardia, Transient Ischemic Attacks (TIA), Valvular Heart Disease Other Medical History: Reports: Anemia, Arthritis, Cataracts (had them removed last year), Fibromyalgia, Sinus Problems. Denies: Blood Transfusion Reaction, Chemotherapy, Glaucoma, Acquired Immunodeficiency Syndrome (AIDS), HIV, Hoarseness, Hormone Therapy, Hypothyroidism, Liver Disease, Osteoporosis, Radiation Therapy, Sickle Cell Disease, Thyroid Disease, Unexplained Bleeding Comment: Illnesses-chronic back pain secondary to DDD lumbar spine with radiculopathy and postlaminectomy syndrome, GERD, arthritis, migraine headaches, anxiety and depression, history of skin cancers, heart murmur, hypertension Laterality Cases: Right: Arthroscopy Knee Other Surgeries: Yes: Hysterectomy-Total, Other (Right 3rd digit DIPJ AP Right 3rd digit PIPJ AD). No: Pacemaker Amputation: No Fractures: No - *Social History Educational Level: Completed College Smoking Status: Never smoker Tobacco Type: cigarettes # Packs/Day (cigarettes): 0 #Yrs smoked (if former smoker): 0 Alcohol Intake: never Alcohol Intake Frequency:: 0-2 drinks per day Substance Use Type: denies use Occupational Status: employed, retired Housing: house Household Members: spouse, family Comment: Operations-ear surgery ?3, cholecystectomy, hysterectomy, knee arthroscopy, lumbar discectomy, gastric bypass, excision of skin cancers of the nose, toe surgery, knee arthroscopy, intrathecal pain pump placement 2016 - Psychiatric History Expresses thoughts of harming self/others: None Suicide Plan Description: No Plan *Family Hx:: Diabetes, Heart Attack, Cancer, Hyperlipidemia, Hypertension, Kidney Disease, Thyroid Disorder Review of Systems - Review of Systems Review of systems:: pertinent systems reviewed and negative unless documented below - *Musculoskeletal Reports radiating pain into limb Meds Home Medications Medication Instructions Recorded Confirmed Type aripiprazole 5 mg tablet 5 mg PO Q
--- NOTE | 2018-01-28 11:14 | P.CONS_ITS ---
Assessment and Plan (1) DDD (degenerative disc disease), lumbar Current visit: Yes Status: Chronic Category: Medical Code(s): M51.36 - Other intervertebral disc degeneration, lumbar region Consideration for pain stimulator implant trial with permanent placement if indicated (2) Post laminectomy syndrome Current visit: Yes Status: Chronic Category: Medical Code(s): M96.1 - Postlaminectomy syndrome, not elsewhere classified Consideration for pain stimulator implant trial with permanent placement if indicated HPI - Data of Consult Patient: new to practice Consult date: 01/28/18 Requesting Physician: Armand Hannon MD Primary Care Provider: Omar De La Torre Family Provider: Katie Muro APRN - Consult Narrative Reason for consult: Consideration for in stimulator implant for pain management History of present illness: Ms. Kennedy is a 57 year old female referred for consideration for placement of a pain stimulator implant for management of residual pain from degenerative disc disease of the lumbar spine as with radiculopathy as well as postlaminectomy syndrome. Patient had an intrathecal pain pump placement in 2016 initially with significant improvement. She is now developing progressive back and lower extremity pain is now being considered for a stimulator implant trial to see if we can improve this pain CC: Armand Hannon MD [facility] History Medical History: Reports:: Congestive Heart Failure, Diabetes Mellitus Type 2, Gastroesophageal Reflux Disease(GERD), Hypertension, Migraine Denies:: Aneurysm, Arrhythmia, Asthma, Atrial Fibrillation, Cancer, Chronic Obstructive Pulmonary Disease (COPD), Coronary Artery Disease, Cerebrovascular Accident, Deep Vein Thrombosis, Diabetes Mellitus Type 1, Gastrointestinal Bleed , Hyperlipidemia, Internal Pacemaker, Kidney Stones, MRSA, Myocardial Infarction , Osteoporosis, Peripheral Artery Disease, Pulmonary Embolism, Renal Disease, Seizures, Supraventricular Tachycardia, Transient Ischemic Attacks (TIA), Valvular Heart Disease Other Medical History: Reports: Anemia, Arthritis, Cataracts (had them removed last year), Fibromyalgia, Sinus Problems. Denies: Blood Transfusion Reaction, Chemotherapy, Glaucoma, Acquired Immunodeficiency Syndrome (AIDS), HIV, Hoarseness, Hormone Therapy, Hypothyroidism, Liver Disease, Osteoporosis, Radiation Therapy, Sickle Cell Disease, Thyroid Disease, Unexplained Bleeding Comment: Illnesses-chronic back pain secondary to DDD lumbar spine with radiculopathy and postlaminectomy syndrome, GERD, arthritis, migraine headaches , anxiety and depression, history of skin cancers, heart murmur, hypertension Laterality Cases: Right: Arthroscopy Knee Other Surgeries: Yes: Hysterectomy-Total, Other (Right 3rd digit DIPJ AP Right 3rd digit PIPJ AD). No: Pacemaker Amputation: No Fractures: No - *Social History Educational Level: Completed College Smoking Status: Never smoker Tobacco Type: cigarettes # Packs/Day (cigarettes): 0 #Yrs smoked (if former smoker): 0 Alcohol Intake: never Alcohol Intake Frequency:: 0-2 drinks per day Substance Use Type: denies use Occupational Status: employed, retired Housing: house Household Members: spouse, family Comment: Operations-ear surgery ?3, cholecystectomy, hysterectomy, knee arthroscopy, lumbar discectomy, gastric bypass, excision of skin cancers of the nose, toe surgery, knee arthroscopy, intrathecal pain pump placement 2016 - Psychiatric History Expresses thoughts of harming self/others: None Suicide Plan Description: No Plan *Family Hx:: Diabetes, Heart Attack, Cancer, Hyperlipidemia,
== END ==
PROVIDERS: Family Provider Nurse Practitioner Family; PCP Internal Medicine; Visit Provider Surgery
DX: M51.36 Other intervertebral disc degeneration, lumbar region (principal); M96.1 Postlaminectomy syndrome, not elsewhere classified
CPT/HCPCS: 99212

== ENCOUNTER → 2018-02-23 14:05 | Outpatient (POV) | payer BC, SELFPAY ==
--- NOTE | 2018-02-24 10:12 | HMH.PAINSOAP ---
[facility] Pain Management SOAP Note Subjective:: Date of service 02/23/2018 Patient is a pleasant 57-year-old white female who presents today for follow-up regards to her neurostimulator trial. She states she is doing very well she states that the neurostimulator is helped her pain significantly she states that she is 80% relief of her symptoms. Patient is enjoying her balance states she wishes she could keep it. Patient states she is much more functional. Patient does have intrathecal pain pump that also helps with her low back pain. Patient doing well at this time. Patient will have her leads pulled in several days. Patient is continuing with her antibiotic therapy. We will follow-up with the patient after her leads are pulled. This is a successful trial. ROS General: no recent weight change, no fever, no sleep disturbances Respiratory: no cough, no shortness of air, no recurring pulmonary infections Cardiovascular/Peripheral Vascular: No chest pain, No palpitations, no edema, no shortness of breath. Gastrointestinal: no incontinence, normal bowel movements reported Genitourinary: no incontinence Musculoskeletal: Back pain, leg pain Psychiatric: normal mood/ affect Neurological: [denies weakness in extremities], [denies balance issues] Objective:: Physical Exam General: Alert and oriented x3, no acute distress, pleasant and cooperative, [on room air] Lungs: Resps E/U, Symmetrical chest expansion, Eyes: PERRL Musculoskeletal: Flexion and extension of lumbar spine somewhat guarded secondary to pain, deep tendon reflexes normal, strength in upper and lower extremities [5/5], [abnormal gait noted] Skin: Neurostimulator trial leads in place with bandages intact Neurological: speech clear, reimbursement manager equal, no gross sensory deficits Assessment:: Degenerative disc disease of lumbar spine with lumbar radiculopathy and spinal stenosis Plan:: Patient will have her neurostimulator trial leads removed later on this week. This is successful trial we will move forward to implant on the next available surgical date. This note was dictated using voice recognition software and may contain errors or omissions
== END ==
PROVIDERS: Family Provider Nurse Practitioner Family; PCP Internal Medicine; Visit Provider Clinical Nurse Specialist Family Health
DX: M51.16 Intervertebral disc disorders with radiculopathy, lumbar region (principal); M48.00 Spinal stenosis, site unspecified
CPT/HCPCS: 99213

== ENCOUNTER → 2018-03-27 08:08 | Outpatient (CLI) | payer BC, SELFPAY ==
--- NOTE | 2018-03-27 08:11 | XR_ITS ---
XR finger RT min 2V CLINICAL INDICATION: ITS.REASON: cyst on right thumb ORDERING PHYSICIAN: John Champagne MD PATIENT AGE: 58 years Comparison: None FINDINGS: Osteoarthritic changes are present at the first metacarpal phalangeal joint and interphalangeal joint. No bony destructive process evident. There is mild soft tissue swelling along the nailbed some. No abnormal calcification evident at this area. There is a small calcific density at the dorsal aspect of the interphalangeal joint and may be due to an old avulsion injury. IMPRESSION: 1. Focal soft tissue swelling at the nailbed of the thumb. No bony erosive change 2. Osteoarthritis of the thumb
--- NOTE | 2018-03-27 10:44 | XR_ITS ---
XR chest 2V HISTORY: ITS.REASON: HTN ORDERING PHYSICIAN: John Champagne MD PATIENT AGE: 58 years COMPARISON: 03/01/2018 FINDINGS: Borderline cardiomegaly without failure. Calcified node is present in the left hilum and there is calcified granuloma in the lingula. No lobar consolidation or collapse. No acute bony findings. IMPRESSION: No change with no acute finding
[2018-03-27 10:46] LABS: Basophils % 0.2 % (0.1-2.0); Eosinophils # 0.2 K/mm3 (0.0-0.4); Eosinophils % 4.7 % (0.1-12.0); Hematocrit 35.4 % (37.0-47.0); Hemoglobin 11.4 g/dL (12.2-16.2); Lymphocytes # 1.3 K/mm3 (0.7-4.5); Lymphocytes % 30.8 K/mm3 (10-50); Mean Corpuscular HGB Conc 32.3 g/dL (31.8-35.4); Mean Corpuscular Hemoglobin 30.4 pg (27.0-31.2); Mean Corpuscular Volume 94.1 fl (81-99); Mean Platelet Volume 6.7 fl (7.4-10.4); Monocytes # 0.3 K/mm3 (0.1-1.0); Monocytes % 7.9 % (1.7-9.3); Neutrophils # 2.4 K/mm3 (1.8-7.8); Neutrophils % 56.4 % (37.0-80.0); Platelet Count 334 K/mm3 (142-424); Red Blood Count 3.76 M/mm3 (4.20-5.40); Red Cell Distribution Width 12.4 % (11.5-17.5); White Blood Count 4.3 K/mm3 (4.8-10.8)
[2018-03-27 11:30] LABS: Anion Gap 12.6 mEq/L (5-15); Blood Urea Nitrogen 25 mg/dL (7-18); Calcium 8.8 mg/dL (8.5-10.1); Carbon Dioxide 30 mmol/L (21.0-32.0); Chloride 104 mmol/L (98-107); Creatinine,Serum 1.21 mg/dL (0.55-1.02); Estimated Glomerular Filt Rate 46 ml/min (>60); GFR (African American) 55 ML/MIN (>60); Glucose 96 mg/dL (74-106); Potassium 3.6 mmoL/L (3.5-5.1); Sodium 143 mmol/L (136-145)
== END ==
PROVIDERS: PCP Internal Medicine; Visit Provider Orthopaedic Surgery
DX: Z01.818 Encounter for other preprocedural examination (principal); M79.644 Pain in right finger(s)
CPT/HCPCS: 36415; 71046; 73140; 80048; 85025; 93005

== ENCOUNTER → 2018-04-13 10:18 | Outpatient (POV) | payer BC, SELFPAY ==
[2018-04-13 12:20] VITALS: BP 98/40; PULSE 68; RESP 18; O2SAT 98; BMI 37.5
--- NOTE | 2018-04-13 12:37 | HMH.PAINSOAP ---
[facility] Pain Management SOAP Note Subjective:: Patient is a pleasant 58-year-old white female who we are treating for low back pain. Patient has an intrathecal pain pump which helps her back however does not help with her radicular symptoms. Patient is following up today after spinal cord stimulator insertion. Patient had his stitches removed. The site is clean dry and healing. No sign symptoms of infection. Patient was reprogrammed by the security systems sales representative and is doing well. Patient rates her pain a 5 out of 10. ROS General: no recent weight change, no fever, no sleep disturbances Respiratory: no cough, no shortness of air, no recurring pulmonary infections Cardiovascular/Peripheral Vascular: No chest pain, No palpitations, no edema, no shortness of breath. Gastrointestinal: no incontinence, normal bowel movements reported Genitourinary: no incontinence Musculoskeletal: Back pain, leg pain Psychiatric: normal mood/ affect, Neurological: [denies weakness in extremities], [denies balance issues] Objective:: Physical Exam General: Alert and oriented x3, no acute distress, pleasant and cooperative, [on room air] Lungs: Resps E/U, Symmetrical chest expansion, Eyes: PERRL Musculoskeletal: Flexion and extension of lumbar spine somewhat guarded secondary to pain, deep tendon reflexes normal, strength in upper and lower extremities [5/5], slightly antalgic gait noted Neurological: speech clear, tractor operator battery equal, no gross sensory deficits Assessment:: Degenerative disc disease lumbar spine with lumbar radiculopathy Plan:: We will follow-up with the patient in 3 weeks and reassess her symptoms at that time. Patient's been instructed to call the office if she has any issues prior to this. This note was dictated using voice recognition software and may contain errors or omissions
== END ==
PROVIDERS: Family Provider Nurse Practitioner Family; PCP Internal Medicine; Visit Provider Clinical Nurse Specialist Family Health
DX: M51.16 Intervertebral disc disorders with radiculopathy, lumbar region (principal)
CPT/HCPCS: 99213

== ENCOUNTER → 2018-04-17 14:36 | Outpatient (CLI) | payer BC, SELFPAY ==
--- NOTE | 2018-04-17 14:42 | XR_ITS ---
XR finger LT min 2V CLINICAL INDICATION: ITS.REASON: S/P FALL, LT THUMB PAIN ORDERING PHYSICIAN: Omar De La Torre PATIENT AGE: 58 years Comparison: None FINDINGS: There is an old avulsion fracture at the interphalangeal joint dorsally with osteoarthritic changes of the interphalangeal joint. There is mild lateral subluxation of the first metacarpal IMPRESSION: Chronic changes, no acute finding
== END ==
PROVIDERS: PCP Internal Medicine; Visit Provider Internal Medicine
DX: M79.645 Pain in left finger(s) (principal)
CPT/HCPCS: 73140

== ENCOUNTER → 2018-05-01 12:58 | Outpatient (POV) | payer BC, SELFPAY ==
[2018-05-01 13:52] VITALS: BP 138/66; PULSE 67; RESP 18; O2SAT 98; BMI 36.1
--- NOTE | 2018-05-01 14:44 | HMH.PAINSOAP ---
[facility] Pain Management SOAP Note Subjective:: This patient is a pleasant 58-year-old white female who has a spinal cord stimulator in for low back pain and leg pain. She is here for reprogramming as she is having some increased pain. She is also had frequent falls with some weakness of her core. Objective:: Alert and oriented x3 no acute distress. Motor strength of the lower extremities is 5/5. There is no gross sensory deficit. Assessment:: Degenerative disease of lumbar spine with lumbar radiculopathy symptoms with spinal cord stimulator in place. Plan:: She was reprogrammed by the [facility] representative personal service. She did get relief of her pain symptoms after the reprogramming. We will start her on physical therapy to help with her frequent falls and strengthening exercises. If she does not get any benefit after 6 weeks of physical therapy we will refer her to Dr. Domingo neurology evaluation.
== END ==
PROVIDERS: Family Provider Nurse Practitioner Family; PCP Internal Medicine; Visit Provider Anesthesiology
DX: M51.16 Intervertebral disc disorders with radiculopathy, lumbar region (principal)
CPT/HCPCS: 99212

== ENCOUNTER → 2018-05-25 06:46 | Outpatient (CLI) | payer BC, SELFPAY ==
--- NOTE | 2018-05-25 06:47 | NM_ITS ---
CARDIOLITE SPECT MYOCARDIAL PERFUSION SCAN, REST AND STRESS: EXERCISE STRESS [facility] REVIEW QGS EF AND WALL MOTION EVALUATION: QPS - PERFUSION EVALUATION HISTORY: HTN, DM, Pre op DOSE: 10.08 mCi technetium 99m mibi intravenously at rest followed by 31.6 mCi technetium 99m mibi following the intravenous ministration of 0.4 mg of Lexiscan. Resting blood pressure is 119/66. Stress blood pressure 124/68. FINDINGS: Ejection fraction is calculated to be 68%. Stress images reveal transient left ventricular dilatation with decreased activity in the mid anterior apical and inferior apical wall. Rest images reveal left ventricular dilatation not as severe as stress with no significant change and uptake images. IMPRESSION: Transient left ventricular dilatation with scintigraphic evidence of previous myocardial infarction of the mid anterior apical and inferior apical wall. Normal ejection fraction with normal wall motion. This is a high risk abnormal stress test where clinical correlation is advised
--- NOTE | 2018-05-25 06:47 | CA_ITS ---
PROCEDURE: 2-D M-mode and color Doppler study INDICATIONS FOR THE TEST: Chest pain COPD Heart Murmur Tobacco Smoking Palpitations Fatigue Syncope Edema Hypertension+Diabetes Mellitus Rheumatic Fever SOB OREILLY Obesity Hyperlipidemia+ Family History HD Additional History abn ekg, pre-op for thumb surgery,prior mi PATIENT INFORMATION HEIGHT: 67 WEIGHT:231 GENDER: Female B/P:103/40 2-D/M-MODE INTERPRETATION: 2-D MEASUREMENTS OBSERVED VALUES IN CMS Right Ventricular Dimension (RVDd) 1.8 Interventricular Septum (Thickness)(IVsd) 0.9 Left Ventricular Internal Dimensions(LVIDd) 5.2 Left Ventricular Posterior Wall (Thickness)(LVPWd) 0.8 Aortic Root 2.8 Aortic Cusp Separation 1.9 Left Atrial Dimensions (LAD) 4.8 2D 1. Left atrium is mildly enlarged, left ventricle is normal size, mild concentric left ventricular hypertrophy, visually estimated ejection fraction of 55% with no regional wall motion abnormality. 2. The right atrium and right ventricle are normal size and contractility. 3. The aortic valve is minimally thickened fibrosed. 4. The mitral and tricuspid valve leaflets are minimally thickened. 5. The pulmonic valve is poorly visualized. 6. No significant pericardial effusion noted. DOPPLER INTERROGATION: Doppler interrogation of the aortic, mitral and tricuspid valvular presence of mild mitral and tricuspid regurgitation, tricuspid regurgitation jet velocity is inadequate for calculation of the right ventricular systolic pressure, grade 1 diastolic dysfunction seen with tissue Doppler evidence of raised left atrial pressure. CONCLUSION: 1. Mildly enlarged left atrium, normal left ventricular size, mild concentric left ventricular hypertrophy, visually estimated ejection fraction 55% with no regional wall motion abnormality, grade 1 diastolic dysfunction seen with tissue Doppler evidence of raised left atrial pressure. 2. Mild mitral and tricuspid regurgitation 3. No significant pericardial effusion noted.
--- NOTE | 2018-05-25 07:55 | HMH.ITSHM ---
Current Home Medications as stated by this patient Paige Kennedy or it sales representative. []GABAPENTIN DILAUDID ADAVAN TRIAZOLAM TRAMADOL RANITIDINE OMEPRAZOLE MONTELUKAST LORAZEPAM LANOTIGINE DULOXETINE DICOLFENAC VITAMIN D3 CARVEDILOL ASA VITAMIN C
== END ==
PROVIDERS: PCP Internal Medicine; Visit Provider Internal Medicine
DX: Z01.818 Encounter for other preprocedural examination (principal); E78.5 Hyperlipidemia, unspecified; I11.9 Hypertensive heart disease without heart failure; R94.31 Abnormal electrocardiogram [ECG] [EKG]
CPT/HCPCS: 78452; 93017; 93306; A9502; J2785

== ENCOUNTER → 2018-07-13 11:20 | Outpatient (POV) | payer BC, SELFPAY ==
--- NOTE | 2018-07-13 | XR_ITS ---
EXAM: XR thoracic spine 2V HISTORY: ITS.REASON: STIMULATOR LEAD CHECK Comparison: 58 and (03/27/2018 FINDINGS: There is mild serpentine scoliotic curvature of the thoracic spine. There are mild degenerative changes mid thoracic spine. There is mild dextroscoliotic curvature between T5 and T9 measuring 21 degrees. There is mild there is 15 degrees levoscoliotic curvature between T 11 and L3. 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
[2018-07-13 11:51] VITALS: BP 131/77; PULSE 69; RESP 18; O2SAT 99; BMI 32.8
--- NOTE | 2018-07-13 12:17 | HMH.PAINSOAP ---
[facility] Pain Management SOAP Note Subjective:: Is a pleasant 58-year-old white female who presents today for follow-up. Patient has a neurostimulator and a intrathecal pain pump. Patient states that she can feel the stimulation when she lays down. We had her to have an x-ray to ensure that the leads are in the right place and they are. Patient will need to be reprogrammed. She states it does help. Patient has had surgery on her thumb she states that the orthopedic surgeon stated she needed to get pain medication from us. We will give her a few days worth of pain medication. ROS General: no recent weight change, no fever, no sleep disturbances Respiratory: no cough, no shortness of air, no recurring pulmonary infections Cardiovascular/Peripheral Vascular: No chest pain, No palpitations, no edema, no shortness of breath. Gastrointestinal: no incontinence, normal bowel movements reported Genitourinary: no incontinence Musculoskeletal: Back pain, thumb pain Psychiatric: normal mood/ affect Neurological: [denies weakness in extremities], [denies balance issues] Objective:: Physical Exam General: Alert and oriented x3, no acute distress, pleasant and cooperative, [on room air] Lungs: Resps E/U, Symmetrical chest expansion, Eyes: PERRL Musculoskeletal: Flexion and extension of lumbar spine somewhat guarded secondary to pain, deep tendon reflexes normal, strength in upper and lower extremities [5/5], [abnormal gait noted] Neurological: speech clear, energy conservation technician equal, no gross sensory deficits Assessment:: Degenerative disc disease lumbar spine with lumbar postlaminectomy syndrome. Plan:: We will give her [place] 5 twice daily for 4 days. We will then have her reprogrammed by the new [employer] rep. This note was dictated using voice recognition software and may contain errors or omissions
--- NOTE | 2018-07-13 12:24 | P.CONS_ITS ---
[facility] Pain Management SOAP Note Subjective:: Is a pleasant 58-year-old white female who presents today for follow-up. Patient has a neurostimulator and a intrathecal pain pump. Patient states that she can feel the stimulation when she lays down. We had her to have an x-ray to ensure that the leads are in the right place and they are. Patient will need to be reprogrammed. She states it does help. Patient has had surgery on her thumb she states that the orthopedic surgeon stated she needed to get pain medication from us. We will give her a few days worth of pain medication. ROS General: no recent weight change, no fever, no sleep disturbances Respiratory: no cough, no shortness of air, no recurring pulmonary infections Cardiovascular/Peripheral Vascular: No chest pain, No palpitations, no edema, no shortness of breath. Gastrointestinal: no incontinence, normal bowel movements reported Genitourinary: no incontinence Musculoskeletal: Back pain, thumb pain Psychiatric: normal mood/ affect Neurological: [denies weakness in extremities], [denies balance issues] Objective:: Physical Exam General: Alert and oriented x3, no acute distress, pleasant and cooperative, [on room air] Lungs: Resps E/U, Symmetrical chest expansion, Eyes: PERRL Musculoskeletal: Flexion and extension of lumbar spine somewhat guarded secondary to pain, deep tendon reflexes normal, strength in upper and lower extremities [5/5], [abnormal gait noted] Neurological: speech clear, rehabilitation psychologist equal, no gross sensory deficits Assessment:: Degenerative disc disease lumbar spine with lumbar postlaminectomy syndrome. Plan:: We will give her [place] 5 twice daily for 4 days. We will then have her reprogrammed by the new [employer] rep. This note was dictated using voice recognition software and may contain errors or omissions
[2018-07-13 14:33] LABS: Amphetamine/Metha Screen,Urine Negative ng/mL (<1000); Barbiturates Screen,Urine Negative ng/mL (<200); Benzodiazepines Screen,Urine Negative ng/mL (<200); Cannabinoid Screen,Urine Negative ng/mL (<50); Cocaine Screen,Urine Negative ng/mL (<300); Methadone Screen,Urine Negative ng/mL (<300); Opiate Screen,Urine Positive ng/mL (<300); Phencyclidine Screen,Urine Negative ng/mL (<25)
[2018-07-23 03:38] LABS: Codeine Negative (Cutoff=100); Hydrocodone Negative (Cutoff=100); Hydromorphone Positive (.); Morphine Negative (Cutoff=100)
[2018-07-23 11:17] LABS: Opiates Positive (.)
== END ==
LOC: SC.PAIN 11:21 → RAD 11:47
PROVIDERS: PCP Internal Medicine; Visit Provider Clinical Nurse Specialist Family Health
DX: M51.36 Other intervertebral disc degeneration, lumbar region (principal); M96.1 Postlaminectomy syndrome, not elsewhere classified; Z79.899 Other long term (current) drug therapy
CPT/HCPCS: 72070; 80305; 80361; 80365; 99213; G0480

== ENCOUNTER 2018-07-22 15:21 | Outpatient (RCR) | payer BC, SELFPAY | END 2018-08-05 16:15 | disposition home or self-care (01) | LOC: OT 15:21 | PROVIDERS: Visit Provider Orthopaedic Surgery | DX: M13.842 Other specified arthritis, left hand (principal) | CPT/HCPCS: 97763 ==

== ENCOUNTER 2018-07-31 09:00 | Outpatient (RCR) | payer BC, SELFPAY ==
--- NOTE | 2018-06-12 15:36 | HMH.PTOPEV ---
PT Outpatient Evaluation Rehab PT Outpatient Evaluation Start: 06/12/18 15:16 Freq: Status: Active Protocol: Document 06/12/18 15:16 ROBBY (Rec: 06/12/18 15:36 ROBBY [id number]) Electronically Signed By Deejay Garcia, PT 06/12/18 15:16 Outpatient Therapy Subjective History Subjective History Patient is a 58 year old female presenting to outpatient PT with reports of generalized BLE weakness and poor balance resulting in multiple falls over the past 6 months. She reports hx of lumbar fusion, lumbar pain pump and lumbar stimulator placement surgeries. R TKA approx 8 years ago. BLE diabetic neuropathy. Cardiovascular bypass surgery. Her main complaint is difficulty with negotiating curbs and stairs (up and down) . Chief Complaint Gives out/Unstable Paresthesia Weakness Symptom Type Ache Symptoms Relieved By Rest/Positioning Symptoms Aggravated By Standing Physical Activity Twisting Walking Lifting Prior Functional Limitations None Current Functional Limitations Reaching Lifting Housework Standing Squatting Recreation Activity Walking Stairs Balance Bending/Stooping Symptom Description Intermittent Level of pain today (0-10) 0 Pain scale - at its best (0-10) 0 Pain scale - at its worst (0-10) 2 Balance Eval Subjective Hx of Complaint Comment Falls with going up or down curbs. Chief Complaint vertigo No Did you feel dizzy, unsteady or faint? No Activity at onset 6 months Prior Functional Limitations Prior Functional [place] Level None Current Functional Limitations Comment Pt has difficulty with any standing/ambulatory activity. Hx of Falls Hx Falls Yes Number in l
--- NOTE | 2018-07-23 12:35 | HMH.RHREAS ---
Rehab Reassessment Rehab OP Re-assessment Start: 07/23/18 11:21 Freq: Status: Active Protocol: Document 07/23/18 11:21 ROBBY (Rec: 07/23/18 12:35 ROBBY [id number]) Electronically Signed By Deejay Garcia, PT 07/23/18 11:21 Rehab Re-assessment Subjective Subjective Pt reports non-compliance with HEP secondary to thumb surgery. No recent falls. 0% change to date. Objective Objective Notes AROM: WFL MMT: BLE / grossly hip knee ankle Pain: 08/23 R/L hip Neuro WNL SLS 08/23 bilaterally Assessment Progress Assessment No Progress Assessment Notes Maryanne has been seen in PT for 3 visits to date. Pt had to undergo L thumb surgery which has prevented her from consistently participating in PT visits. Non-compliance with HEP reported. No recent falls to report. She continues to have significant BLE weakness and balance issues contributing to functional limitations with all standing/ambulatory activity. Patient goals met None Goals Not Met All Revised Goals NA Plan Plan Continue with current POC. Frequency of Therapy 2x/week Duration of therapy 4 weeks Time and Billing Re-Eval Time 15 Re-Eval Billing Units 1 PHYSICIAN CERTIFICATION: I certify the specified therapy services for Paige Kennedy are required, authorized, and reviewed every 30 days.
== END 2018-07-31 09:05 | disposition home or self-care (01) ==
LOC: PT 09:00
PROVIDERS: Visit Provider Anesthesiology
DX: R26.9 Unspecified abnormalities of gait and mobility (principal)
CPT/HCPCS: 97110; 97112; 97163; 97164

== ENCOUNTER → 2018-12-28 15:35 | Outpatient (POV) | payer BC, SELFPAY ==
[2018-12-28 15:43] VITALS: BP 119/66; PULSE 76; RESP 18; O2SAT 98; BMI 31.3
--- NOTE | 2018-12-29 08:39 | P.CONS_ITS ---
[facility] Pain Management SOAP Note Subjective:: Patient is a pleasant 58-year-old white female who presents today for follow-up. Patient has intrathecal pain pump along with neurostimulator. Patient states that she is not getting the same coverage that she is to get. She rates her pain a 6 out of 10. She had a recent fall and has some tenderness around the battery. ROS General: no recent weight change, no fever, no sleep disturbances Respiratory: no cough, no shortness of air, no recurring pulmonary infections Cardiovascular/Peripheral Vascular: No chest pain, No palpitations, no edema, no shortness of breath. Gastrointestinal: no incontinence, normal bowel movements reported Genitourinary: no incontinence Musculoskeletal: Back pain, leg pain Psychiatric: normal mood/ affect Neurological: [denies weakness in extremities], [denies balance issues] Objective:: Physical Exam General: Alert and oriented x3, no acute distress, pleasant and cooperative, [on room air] Lungs: Resps E/U, Symmetrical chest expansion, Eyes: PERRL Musculoskeletal: Flexion and extension of lumbar spine somewhat guarded secondary to pain, deep tendon reflexes normal, strength in upper and lower extremities [5/5], [abnormal gait noted] Neurological: speech clear, institutional cook equal, no gross sensory deficits Assessment:: Degenerative disc disease lumbar spine with lumbar radiculopathy Plan:: We will have the patient seen by the motor vehicle field representative to have her stimulator re- program. Patient's been instructed to call the office if she has any issues prior to her next appointment. Dr. Ortiz has reviewed this note and agrees with this plan of care. This note was dictated using voice recognition software and may contain errors or omissions
== END ==
PROVIDERS: PCP Internal Medicine; Visit Provider Clinical Nurse Specialist Family Health
DX: M51.16 Intervertebral disc disorders with radiculopathy, lumbar region (principal)
CPT/HCPCS: 99212

== ENCOUNTER → 2019-02-09 10:32 | Outpatient (POV) | payer BC, SELFPAY ==
[2019-02-09 10:54] VITALS: BP 129/73; PULSE 75; RESP 18; O2SAT 98; BMI 31.3
--- NOTE | 2019-02-09 11:03 | HMH.PMPROC ---
- Procedure Date: 02/09/19 Time: 11:03 Anesthesiologist:: Dennise Hurst APRN Complications:: None Pre-procedure Diagnosis:: Degenerative disc disease lumbar spine with lumbar radiculopathy Post-procedure Diagnosis:: Same Indications for Procedure:: Patient is a pleasant 58-year-old white female who presents today for intrathecal pain pump adjustment. She rates her pain a 9 and 10 she also has a neurostimulator in place. She states that her back pain is getting worse radiating down into both her legs. Patient is not having a low volume in her reservoir at this time. She is on a flex dose of a total daily dose of 1.9 mg of morphine. We will increase her today. Patient's ELAINE #[id number] reviewed and appropriate. He denies side effects or intrathecal infusion. Physical Exam General: Alert and oriented x3, no acute distress, pleasant and cooperative, [on room air] Lungs: Resps E/U, Symmetrical chest expansion, Eyes: PERRL Musculoskeletal: Flexion and extension of lumbar spine somewhat guarded secondary to pain, deep tendon reflexes normal, strength in upper and lower extremities 5/5, [abnormal gait noted] Neurological: speech clear, education and outreach coordinator equal, no gross sensory deficits Procedure Details:: Informed consent was obtained and the risk and benefits of the procedure were explained to the patient. The patient was taken to the procedure room where noninvasive monitoring was placed including noninvasive blood pressure cuff and pulse oximeter. Patient's pump was interrogated and reprogrammed. The infusion rate was increased to 2.5 mg of morphine a day. The patient tolerated the procedure well. Plan and Disposition:: I will follow-up with the patient in 2 weeks reassess her symptoms at that time if she is no better we will order a CT scan of her lower back. We may need to do catheter dye study as well. She is a home refill patient we will increase her concentrations of medication to morphine 20 mg per mill and bupivacaine 20 mg/mL at her next intrathecal pain pump refill. We will discuss this with AIS. Dr. Ortiz has reviewed this note and agrees with this plan of care. This note was dictated using voice recognition software and may contain errors or omissions
--- NOTE | 2019-02-09 11:06 | P.PCN_ITS ---
- Procedure Date: 02/09/19 Time: 11:03 Anesthesiologist:: Dennise Hurst APRN Complications:: None Pre-procedure Diagnosis:: Degenerative disc disease lumbar spine with lumbar radiculopathy Post-procedure Diagnosis:: Same Indications for Procedure:: Patient is a pleasant 58-year-old white female who presents today for intrathecal pain pump adjustment. She rates her pain a 9 and 10 she also has a neurostimulator in place. She states that her back pain is getting worse radiating down into both her legs. Patient is not having a low volume in her reservoir at this time. She is on a flex dose of a total daily dose of 1.9 mg of morphine. We will increase her today. Patient's ELAINE #[id number] reviewed and appropriate. He denies side effects or intrathecal infusion. Physical Exam General: Alert and oriented x3, no acute distress, pleasant and cooperative, [on room air] Lungs: Resps E/U, Symmetrical chest expansion, Eyes: PERRL Musculoskeletal: Flexion and extension of lumbar spine somewhat guarded secondary to pain, deep tendon reflexes normal, strength in upper and lower extremities 5/5, [abnormal gait noted] Neurological: speech clear, second mate equal, no gross sensory deficits Procedure Details:: Informed consent was obtained and the risk and benefits of the procedure were explained to the patient. The patient was taken to the procedure room where noninvasive monitoring was placed including noninvasive blood pressure cuff and pulse oximeter. Patient's pump was interrogated and reprogrammed. The infusion rate was increased to 2.5 mg of morphine a day. The patient tolerated the procedure well. Plan and Disposition:: I will follow-up with the patient in 2 weeks reassess her symptoms at that time if she is no better we will order a CT scan of her lower back. We may need to do catheter dye study as well. She is a home refill patient we will increase her concentrations of medication to morphine 20 mg per mill and bupivacaine 20 mg/mL at her next intrathecal pain pump refill. We will discuss this with AIS. Dr. Ortiz has reviewed this note and agrees with this plan of care. This note was dictated using voice recognition software and may contain errors or omissions
== END ==
PROVIDERS: PCP Internal Medicine; Visit Provider Clinical Nurse Specialist Family Health
DX: M51.16 Intervertebral disc disorders with radiculopathy, lumbar region (principal)
CPT/HCPCS: 62368; 99212

== ENCOUNTER → 2019-02-23 11:21 | Outpatient (POV) | payer BC, SELFPAY ==
[2019-02-23 11:40] VITALS: BP 128/74; PULSE 65; RESP 18; O2SAT 98; BMI 31.3
--- NOTE | 2019-02-23 12:16 | HMH.PAINSOAP ---
[facility] Pain Management SOAP Note Subjective:: Patient is a pleasant 58-year-old white female who presents today for follow-up. Patient had an increase in her intrathecal pain pump at her last visit however she has not found any relief from her new or low back pain. We will move forward with getting some diagnostic imaging to help determine if there is any issues at this time. We will utilize a CT exam. She rates her pain an 8 out of 10. She is having difficulty walking. ROS General: no recent weight change, no fever, no sleep disturbances Respiratory: no cough, no shortness of air, no recurring pulmonary infections Cardiovascular/Peripheral Vascular: No chest pain, No palpitations, no edema, no shortness of breath. Gastrointestinal: no incontinence, normal bowel movements reported Genitourinary: no incontinence Musculoskeletal: Back pain, leg pain Psychiatric: normal mood/ affect Neurological: [denies weakness in extremities], [denies balance issues] Objective:: Physical Exam General: Alert and oriented x3, no acute distress, pleasant and cooperative, [on room air] Lungs: Resps E/U, Symmetrical chest expansion, Eyes: PERRL Musculoskeletal: Flexion and extension of lumbar spine somewhat guarded secondary to pain, deep tendon reflexes normal, strength in upper and lower extremities [5/5], [abnormal gait noted] Neurological: speech clear, solvent mixer equal, no gross sensory deficits Assessment:: Degenerative disc disease lumbar spine, post laminectomy syndrome, lumbar radiculopathy Plan:: We will order CT scan of her lumbar spine I will follow-up with her reassess her symptoms after we get the report. She is been instructed to call the office if she has any issues prior to next appointment. Dr. Ortiz has reviewed this note and agrees with this plan of care. This note was dictated using voice recognition software and may contain errors or omissions Pain Management Hx Components *Have you ever received a pneumonia vaccine?: Yes *Have you received a flu vaccine this season?: Yes - *Social History *Occupational Status:: other *Travel in the last 8 weeks: None
--- NOTE | 2019-03-30 15:02 | PC.NURSE ---
2 refills for tramadol 50mg po tid prn pain faxed to clinic pharmacy per provider order
== END ==
PROVIDERS: PCP Internal Medicine; Visit Provider Clinical Nurse Specialist Family Health
DX: M51.16 Intervertebral disc disorders with radiculopathy, lumbar region (principal); M96.1 Postlaminectomy syndrome, not elsewhere classified
CPT/HCPCS: 62368; 99212

== ENCOUNTER → 2019-06-08 11:04 | Outpatient (POV) | payer BC, SELFPAY ==
[2019-06-08 11:29] VITALS: BP 108/58; PULSE 68; RESP 18; O2SAT 98; BMI 28.1
--- NOTE | 2019-06-14 13:26 | P.PCN_ITS ---
- Procedure Date: 06/08/19 Time: 12:00 Anesthesiologist:: Dennise Hurst APRN Complications:: None Pre-procedure Diagnosis:: Degenerative disc disease lumbar spine with lumbar radiculopathy, postlaminectomy syndrome Post-procedure Diagnosis:: Same Indications for Procedure:: Patient is a pleasant 59-year-old white female who presents today for follow-up and intrathecal pain pump adjustment. Patient is currently on home refill and is done well since her last adjustment she would like a slight adjustment today. She is currently on a flex dose with a [employer] pain pump. Rates her pain today 6 out of 10 Physical Exam General: Alert and oriented x3, no acute distress, pleasant and cooperative, [on room air] Lungs: Resps E/U, Symmetrical chest expansion, Eyes: PERRL Musculoskeletal: Flexion and extension of lumbar spine somewhat guarded secondary to pain, deep tendon reflexes normal, strength in upper and lower extremities [5/5], [abnormal gait noted] Neurological: speech clear, contestant coordinator equal, no gross sensory deficits Procedure Details:: Informed consent was obtained and the risk and benefits of the procedure were explained to the patient. The patient was taken to the procedure room where noninvasive monitoring was placed including noninvasive blood pressure cuff and pulse oximeter. Patient's pump was interrogated and reprogrammed. The infusion rate was increased to 0.15 mg of morphine every 2 hours. The patient tolerated the procedure well. Plan and Disposition:: The patient will continue with home refill. She is been instructed to call our office if she has any issues prior to her next appointment. Dr. Ortiz has reviewed this note and agrees with this plan of care. This note was dictated using voice recognition software and may contain errors or omissions
== END ==
PROVIDERS: PCP Internal Medicine; Visit Provider Clinical Nurse Specialist Family Health
DX: M51.16 Intervertebral disc disorders with radiculopathy, lumbar region (principal); M96.1 Postlaminectomy syndrome, not elsewhere classified
CPT/HCPCS: 62368; 99212

== ENCOUNTER → 2019-08-16 08:32 | Outpatient (CLI) | payer BC, SELFPAY ==
--- NOTE | 2019-08-16 08:39 | XR_ITS ---
PROCEDURE: XR HIP LT 2-3V W/PELVIS CLINICAL INDICATION: Hip pain COMPARISON: [id number] HIP RT 2-3V W/PELVIS IF PERFOR from 08/27/2016 FINDINGS: There are severe osteoarthritic changes of the left hip with subarticular cystic changes of the acetabulum and femoral head with dysplastic changes of the femoral head with mild lateral subluxation of the femoral head. No obvious fracture or dislocation. There are postsurgical changes of the lumbar spine with an epidural stimulator device. A pain pump is noted in the right lower quadrant. There are some mild sclerotic changes of the intertrochanteric region of the right femur. IMPRESSION: Severe osteoarthritis of the left hip with dysplastic changes and subarticular cystic changes. Dictated by: Hema Chen MD 08/16/2019 09:17 Electronically signed by Hema Chen MD in [place] 08/16/2019 09:17
--- NOTE | 2019-08-16 10:17 | XR_ITS ---
PROCEDURE: XR KNEE LT 4V CLINICAL INDICATION: knee pain COMPARISON: [id number] KNEE-LIMITED 2 VIEWS-RT from 02/14/2015 [id number] KNEE-3 VIEWS-RT from 10/31/2016 KNEE3R KNEE-3 VIEWS-RT from 12/18/2016 [id number] XR knee RT 3V from 03/01/2018 FINDINGS: No fracture or dislocation. No lytic or blastic change. There is normal mineralization. Moderate osteoarthritic changes are present at the medial compartment and patellofemoral joint with mild osteoarthritis of the lateral compartment. Spurring is present in the inter intercondylar region of the femur and tibial spine area. IMPRESSION: Osteoarthritic change Dictated by: Hema Chen MD 08/16/2019 11:51 Electronically signed by Hema Chen MD in [place] 08/16/2019 11:51
--- NOTE | 2019-08-16 10:17 | XR_ITS ---
PROCEDURE: XR LUMBAR SPINE MIN 4V CLINICAL INDICATION: back pain Low back pain COMPARISON: MR LUMBAR SPINE W/O CON [id number] from 12/12/2017 FINDINGS: Postsurgical changes with inter pedicular screws at L3-L4 and L5 with posterior laminectomy defect. Degenerative disc disease T12-L1, L1-L2, L2-L3 with loss of disc space, osteosclerosis of the endplates, and endplate osteophytes. There is 10 mm retrolisthesis of L2 on L3 and 5 mm anterolisthesis of L4 on L5. Degenerative disc disease is also present at L4-5 and L5-S1. An epidural stimulator device is present with the leads projecting superiorly not visible on the image. Pain pump is present on the right in the gluteal region. The catheter of the pain pump is not demonstrated. Facet arthritic changes are present at L1-L2 and L3. No acute fracture or dislocation. There are severe osteoarthritic changes of the left hip as described in the hip report of the same day. IMPRESSION: Postsurgical changes with lumbar spondylosis as detailed above Dictated by: Hema Chen MD 08/16/2019 11:48 Electronically signed by Hema Chen MD in [place] 08/16/2019 11:48
== END ==
PROVIDERS: PCP Internal Medicine; Visit Provider Orthopaedic Surgery
DX: M25.552 Pain in left hip (principal); M25.562 Pain in left knee; M54.9 Dorsalgia, unspecified
CPT/HCPCS: 72110; 73502; 73564

== ENCOUNTER → 2019-09-01 06:55 | Outpatient (CLI) | payer BC, SELFPAY ==
--- NOTE | 2019-09-01 | CA_ITS ---
APPROVED REPORT Exam: Pharmacologic Technologist: Jessica Nichols Ht: 5 ft 7 in Wt: 200 lbs BSA: 2.02 m2 HR: 68 bpm BP: 113/71 mmHg Indications: Diastolic Dysfunction Medical History Medications: Lorazepam,,,,, Aspirin,,,,, Vitamin C,,,,, Vitamin D3,,,,, Carvedilol,,,,, Iron,,,,, Tramadol,,,,, Montelukast,,,,, Diclofenac,,,,, Zolpidem,,,,, DulOXETINE,,,,, LaMotrigine,,,,, Stress Test Details Test: LEXISCAN HR Resting HR: 69 bpm Max Heart Rate (APMHR): 161 bpm Max HR Achieved: 94 bpm Target HR (85% APMHR): 136 bpm % of APMHR: 58 Recovery HR: 81 bpm BP Resting BP: 113.0/71.0 mmHg Max BP: 117.0/62.0 mmHg Recovery BP: 115.0/68.0 mmHg ECG Clinical Exercise duration: 04:01 min Highest Stage Achieved: Stress ECG Conclusion Resting ECG: Normal sinus rhythm. Symptoms: Mild malaise. No chest pain Arrhythmias/Ectopy: None ST-T Changes: Nonspecific ST-T changes. Conclusion: Unremarkable Lexiscan stress. Myoview images reported separately. Test Summary REST . . . . . . . Resting REST 04:03 . . 69 . 113/ 71 . . Stage 1 . . . . . . . Myoview Injected Stage 1 01:00 . . 76 . . . . Stage 2 01:00 . . 84 . 103/ 52 . . Stage 3 01:00 . . 84 . 110/ 63 . . Stage 4 01:00 . . 83 . 116/ 64 . . Stage 4 01:01 . . 83 . 116/ 64 . Stop exercise at 04:01 RECOVERY 01:00 . . 79 . . . . RECOVERY 02:00 . . 77 . 117/ 62 . . RECOVERY 03:00 . . 82 . 115/ 68 . . RECOVERY 03:16 . . 93 . 115/ 68 . . Electronically signed by : John Saxena, 09/02/2019 14:49:45
--- NOTE | 2019-09-01 06:55 | NM_ITS ---
APPROVED REPORT Exam: Nuclear Stress Test Indication: Abnormal EKG, HTN, DM, Family history Patient Location: Outpatient Stress Tech: Jessica Nichols NM Tech:Kathy Su, ARRT, RT (R)(N) Ht: 5 ft 7 in Wt: 200 lbs Bra Size: 38DD HR: 68 bpm BP: 113/71 mmHg BSA: 2.02 m2 BMI: 31.3 History: Abnormal EKG, HTN, DM, Family history Procedure: Patient received a 0.4 mg of intravenous Lexiscan, resting heart rate 68 bpm, resting blood pressure 113/71 mmHg, with Lexiscan maximum heart rate achived was 89 bpm which is Less than 85 % of the maximum predicted heart rate and blood pressure was 103/52 mmHg. With Lexiscan, patient denied any complaint of chest pain. Electrocardiogram Resting electrocardiogram showed sinus rhythm, with Lexiscan less than 1.[address] segment depression noted from the baseline EKG. The EKG portion of the Lexiscan Myoview is nondiagnostic. Cardiac Stress and Resting SPECT Images: Cardiac Stress and Resting SPECT images were obtained using technetium 99m Myoview 30.6 mCi stress and 10.16 mCi at rest. Gated SPECT with analysis of segmental wall motion and calculation of the ejection fraction also done. Cardiac stress and resting SPECT images show a fixed defect in the apex with normal contractility to SPECT is likely secondary to soft tissue attenuation and apical thinning, no reversible ischemia seen. Computer derived ejection fraction is over 65% with no regional wall motion abnormality, right ventricle is normal size and contractility. Conclusion: 1. The EKG portion of the Lexiscan Myoview is nondiagnostic. 2. No scintigraphic evidence of reversible ischemia seen, computer derived ejection fraction is over 65% with no regional wall motion abnormality, right ventricle is normal size and contractility. 3. Likely normal Lexiscan Myoview study. Electronically signed by : John Saxena, 09/02/2019 14:53:10
--- NOTE | 2019-09-01 06:55 | CA_ITS ---
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 [employer]otive: Carmel Castro RDCS Ht: 5 ft 7 in Wt: 205lbs BSA: 2.04 BP: 111/63 mmHg Indications: Murmur, Hypertension/HDD,PRE OP SX CLEARANCE,ABN EKG 2D Dimensions LVOT 2.05 cm (M/F) 1.5-2.5 M-Mode Dimensions RVDd 2.24 cm (0.9-2.6) LVDd 4.87 cm (3.5-5.7) LVDs 3.22 cm (3.5-5.7) IVSd 1.05 cm (0.6-1.1) PWd 0.82 cm (0.6-1.1) EF (Teich) 62.60% FS 33.90% EDV (Teich) 111.20 mL ESV (Teich) 41.60 mL LV Diastology E/A Ratio 0.90 Aortic Valve LVOT Max 0.00 (70-110 cm/s) LVOT VTI 0.00 cm Mitral Valve MV A Velocity 83.00 (40-130 cm/s) Left Ventricle Left atrium is mildly enlarged, left ventricle is normal size, left ventricle wall thickness is upper limit of the normal, there is preserved left ventricular systolic function, visually estimated ejection fraction 55% with no regional wall motion abnormality. Grade 1 diastolic dysfunction seen without tissue Doppler evidence of raise left atrial pressure. Right Ventricle Right atrium and right ventricle are normal size and contractility. Aortic Valve Aortic valve is minimally thickened and fibrosed, there is no aortic stenosis or aortic insufficiency. Mitral Valve Mitral valve is grossly normal, there is mild mitral regurgitation. Tricuspid Valve Tricuspid valve is grossly normal, there is mild tricuspid regurgitation, tricuspid regurgitation jet velocity is inadequate for calculation of the right ventricular systolic pressure. Pulmonic Valve Pulmonic valve is poorly visualized. Great Vessels Aortic root is normal size. Pericardium No significant pericardial effusion noted. Conclusion 1. Mildly enlarged left atrium, normal left ventricular size, mild concentric left ventricular hypertrophy, visually estimated ejection fraction 55% with no regional wall motion abnormality, grade 1 diastolic dysfunction seen without tissue Doppler evidence of raise left atrial pressure. 2. Mild mitral and tricuspid regurgitation. 3. No significant pericardial effusion noted. Electronically signed by : John Saxena, 09/02/2019 16:45:48
--- NOTE | 2019-09-01 08:59 | HMH.ITSHM ---
Current Home Medications as stated by this patient Paige Kennedy or customer sales representative. []DICLOFENAC VITAMIN C CARVEDILOL DULOXETINE LEMOTRIGEL LORAZEPAM ASA MONTELUKAST IRON TRAMADOL VITAMIN D3 ZOLPIDEM
== END ==
PROVIDERS: PCP Internal Medicine; Visit Provider Urology
DX: Z01.818 Encounter for other preprocedural examination (principal); I50.30 Unspecified diastolic (congestive) heart failure; I10 Essential (primary) hypertension; R94.31 Abnormal electrocardiogram [ECG] [EKG]
CPT/HCPCS: 78452; 93017; 93306; A9502; J2785

== ENCOUNTER → 2019-09-10 13:56 | Outpatient (CLI) | payer BC, SELFPAY ==
--- NOTE | 2019-09-10 14:01 | XR_ITS ---
PROCEDURE: XR HIP LT 2-3V W/PELVIS CLINICAL INDICATION: hip pain Left hip pain COMPARISON: XR HIP LT 2-3V W/PELVIS from 08/16/2019 FINDINGS: There has been interval development of increased flattening of the left femoral head with cortical collapse of the dome of the femoral head with subcortical lucency lucency. Severe osteoarthritic changes are present involving the left hip with subarticular cystic changes of the acetabular roof. There is no evidence of dislocation.. There is mild lateral subluxation of the femoral head but no mateus dislocation. IMPRESSION: Interval development of cortical collapse of the left femoral head with resultant coxa plana with severe osteoarthritis. Dictated by: Hema Chen MD 09/10/2019 14:35 Electronically signed by Hema Chen MD in [place] 09/10/2019 14:35
--- NOTE | 2019-09-10 14:01 | XR_ITS ---
PROCEDURE: XR FEMUR LT 2V CLINICAL INDICATION: hip pain COMPARISON: [id number] HIP RT 2-3V W/PELVIS IF PERFOR from 08/27/2016 XR HIP LT 2-3V W/PELVIS from 08/16/2019 XR KNEE LT 4V from 08/16/2019 XR HIP LT 2-3V W/PELVIS from 09/10/2019 FINDINGS: There has been interval development of cortical collapse of the left femoral head flattening of the femoral head and subchondral lucency of the femoral head with mild lateral subluxation. Moderate to severe osteoarthritic changes are present involving the knee and patellofemoral joint. IMPRESSION: 1. Collapse of the femoral head with sub chondral lucency with severe osteoarthritic change in mild lateral subluxation of the femoral head along with degenerative changes of the knee. Dictated by: Hema Chen MD 09/10/2019 14:44 Electronically signed by Hema Chen MD in [place] 09/10/2019 14:44
== END ==
PROVIDERS: PCP Internal Medicine; Visit Provider Orthopaedic Surgery
DX: M25.552 Pain in left hip (principal)
CPT/HCPCS: 73502; 73552

== ENCOUNTER → 2019-09-10 15:54 | Outpatient (CLI) | payer BC, SELFPAY ==
[2019-09-10 16:34] LABS: Basophils % 0.4 % (0.1-2.0); Eosinophils # 0.2 K/mm3 (0.0-0.4); Eosinophils % 2.8 % (0.1-12.0); Hematocrit 34.5 % (37.0-47.0); Hemoglobin 11.2 g/dL (12.2-16.2); Lymphocytes # 1.5 K/mm3 (0.7-4.5); Lymphocytes % 21.3 % (10-50); Mean Corpuscular HGB Conc 32.6 g/dL (31.8-35.4); Mean Corpuscular Hemoglobin 30.1 pg (27.0-31.2); Mean Corpuscular Volume 92.4 fl (81-99); Mean Platelet Volume 7.3 fl (7.4-10.4); Monocytes # 0.4 K/mm3 (0.1-1.0); Monocytes % 5.7 % (1.7-9.3); Neutrophils # 4.8 K/mm3 (1.8-7.8); Neutrophils % 69.8 % (37.0-80.0); Platelet Count 427 K/mm3 (142-424); Red Blood Count 3.73 M/mm3 (4.20-5.40); Red Cell Distribution Width 12.4 % (11.5-17.5); White Blood Count 6.9 K/mm3 (4.8-10.8)
[2019-09-10 16:42] LABS: Prothrombin Time 10.4 seconds (9.4-11.8)
[2019-09-10 17:02] LABS: Chloride 96 mmol/L (98-107); Potassium 4.2 mmoL/L (3.5-5.1); Sodium 138 mmol/L (136-145)
[2019-09-10 17:04] LABS: Blood Urea Nitrogen 18 mg/dl (7-17); Estimated Glomerular Filt Rate 64 ml/min (>60); GFR (African American) 78 ML/MIN (>60)
[2019-09-10 17:05] LABS: Alanine Aminotransferase 17 U/L (12-78); Albumin Level 4.1 g/dl (3.5-5.0); Albumin/Globulin Ratio 1.2 (1.1-1.8); Alkaline Phosphatase 101 U/L (38-126); Anion Gap 12.2 mEq/L (5-15); Aspartate Amino Transferase 26 U/L (14-36); Bilirubin,Total 0.3 mg/dl (0.2-1.3); Calcium 9.6 mg/dl (8.4-10.2); Carbon Dioxide 34 mmol/L (22.0-30.0); Globulin 3.3 g/dL (1.3-3.2); Glucose 94 mg/dl (74-100); Total Protein,Serum 7.4 g/dl (6.3-8.2)
== END ==
PROVIDERS: Visit Provider Orthopaedic Surgery
DX: Z01.818 Encounter for other preprocedural examination (principal); M16.12 Unilateral primary osteoarthritis, left hip
CPT/HCPCS: 36415; 80053; 85025; 85610

== ENCOUNTER 2019-09-13 11:35 | Outpatient (CLI) | payer BC, SELFPAY ==
[2019-09-13] VITALS (7 sets, daily range): BP systolic 130–142; BP diastolic 68–79; PULSE 69–80; RESP 16–18; TEMP 36.6–36.7; O2SAT 97–99; BMI 24.4
[2019-09-13 13:11] LABS: Basophils % 0.2 % (0.1-2.0); Eosinophils # 0.1 K/mm3 (0.0-0.4); Eosinophils % 1.5 % (0.1-12.0); Hematocrit 35.8 % (37.0-47.0); Hemoglobin 11.7 g/dL (12.2-16.2); Lymphocytes # 1.6 K/mm3 (0.7-4.5); Mean Corpuscular HGB Conc 32.7 g/dL (31.8-35.4); Mean Corpuscular Hemoglobin 30.5 pg (27.0-31.2); Mean Corpuscular Volume 93.4 fl (81-99); Mean Platelet Volume 7.3 fl (7.4-10.4); Monocytes # 0.4 K/mm3 (0.1-1.0); Monocytes % 6.1 % (1.7-9.3); Neutrophils # 4.8 K/mm3 (1.8-7.8); Neutrophils % 69.2 % (37.0-80.0); Platelet Count 471 K/mm3 (142-424); Red Blood Count 3.83 M/mm3 (4.20-5.40); Red Cell Distribution Width 12.4 % (11.5-17.5); White Blood Count 6.9 K/mm3 (4.8-10.8)
[2019-09-13 13:13] LABS: Chloride 98 mmol/L (98-107); Potassium 3.4 mmoL/L (3.5-5.1); Sodium 138 mmol/L (136-145)
[2019-09-13 13:16] LABS: Alanine Aminotransferase 15 U/L (12-78); Albumin/Globulin Ratio 1.1 (1.1-1.8); Alkaline Phosphatase 107 U/L (38-126); Anion Gap 11.4 mEq/L (5-15); Aspartate Amino Transferase 23 U/L (14-36); Bilirubin,Total 0.3 mg/dl (0.2-1.3); Blood Urea Nitrogen 10 mg/dl (7-17); Carbon Dioxide 32 mmol/L (22.0-30.0); Creatinine Clearance Estimated 113 mL/min (50-200); Estimated Glomerular Filt Rate 102 ml/min (>60); GFR (African American) 124 ML/MIN (>60); Globulin 3.6 g/dL (1.3-3.2); Total Protein,Serum 7.6 g/dl (6.3-8.2)
[2019-09-13 13:17] LABS: Calcium 9.8 mg/dl (8.4-10.2); Glucose 113 mg/dl (74-100); INR 1.03 (0.9-1.1); Prothrombin Time 10.7 seconds (9.4-11.8)
--- NOTE | 2019-09-13 16:42 | PC.NURSE ---
Patient instructed that Dr. De La Torre has ordered diarrhea panel/ stool sample to be collected when available and brought to lab/supplies given to patient to collect/pt verbalizes understanding of all instructions
== END 2019-09-13 17:00 | disposition home or self-care (01) ==
LOC: INF 11:36
PROVIDERS: Orthopaedic Surgery; PCP Internal Medicine; Visit Provider Internal Medicine
DX: K52.9 Noninfective gastroenteritis and colitis, unspecified (principal); E86.0 Dehydration
CPT/HCPCS: 80053; 85025; 85610; 86850; 96360; 96361; 96375; J2405

== ENCOUNTER → 2019-09-14 14:18 | Outpatient (CLI) | payer BC, SELFPAY ==
[2019-09-14 14:21] LABS: Adenovirus F 40/41, stool Not Detected (NotDetected); Astrovirus Not Detected (NotDetected); Campylobacter Not Detected (NotDetected); Clostridium Difficile A/B, PCR Not Detected (NotDetected); Cryptosporidium Not Detected (NotDetected); Cyclospora Cayetanesis Not Detected (NotDetected); Entamoeba histolytica Not Detected (NotDetected); Enteroaggregative E coli Not Detected (NotDetected); Enteropathogenic E coli Not Detected (NotDetected); Enterotoxigenic E coli Not Detected (NotDetected); Giardia lamblia Not Detected (NotDetected); Norovirus Not Detected (NotDetected); Plesimonas Shigalloides, PCR Not Detected (NotDetected); Rotavirus A Not Detected (NotDetected); Salmonella, PCR Not Detected (NotDetected); Sapovirus Not Detected (NotDetected); Shiga-like toxin E coli Not Detected (NotDetected); Shigella Enterovasive E coli Not Detected (NotDetected); Vibrio Cholerae Not Detected (NotDetected); Vibrio, PCR Not Detected (NotDetected); Yersinia Entercolitica, PCR Not Detected (NotDetected)
== END ==
PROVIDERS: Visit Provider Internal Medicine
DX: R19.7 Diarrhea, unspecified (principal)
CPT/HCPCS: 87507

== ENCOUNTER → 2019-09-28 18:10 | Outpatient (CLI) | payer BC, SELFPAY ==
[2019-09-28 19:13] LABS: Basophils % 0.2 % (0.1-2.0); Eosinophils # 0.3 K/mm3 (0.0-0.4); Eosinophils % 3.5 % (0.1-12.0); Hematocrit 32.5 % (37.0-47.0); Hemoglobin 10.6 g/dL (12.2-16.2); Lymphocytes # 1.5 K/mm3 (0.7-4.5); Lymphocytes % 20.6 % (10-50); Mean Corpuscular HGB Conc 32.6 g/dL (31.8-35.4); Mean Corpuscular Hemoglobin 30.6 pg (27.0-31.2); Mean Corpuscular Volume 93.7 fl (81-99); Monocytes # 0.4 K/mm3 (0.1-1.0); Monocytes % 5.5 % (1.7-9.3); Neutrophils # 5.2 K/mm3 (1.8-7.8); Neutrophils % 70.2 % (37.0-80.0); Platelet Count 388 K/mm3 (142-424); Red Blood Count 3.47 M/mm3 (4.20-5.40); Red Cell Distribution Width 12.3 % (11.5-17.5); White Blood Count 7.5 K/mm3 (4.8-10.8)
[2019-09-28 19:29] LABS: Activated Partial Thrombo Time 29.6 seconds (23.6-34.0); INR 0.96 (0.9-1.1)
--- NOTE | 2019-09-28 19:35 | CT_ITS ---
PROCEDURE: CT HIP LT WO CON CLINICAL HISTORY: pre op Severe left hip pain, preoperative evaluation COMPARISON: DMSB DIG MAMM-SCREEN ARIEL from 02/23/2016 ABDPELW/O CT ABD PELVIS W/O CONTRAST from 01/24/2017 XR HIP LT 2-3V W/PELVIS from 09/10/2019 TECHNIQUE: Axial images obtained with sagittal and coronal reformats. All CT scans at the facility use one or more dose reduction, viz: automated exposure control, ma/kV adjustment per patient size (including targeted exams where dose is matched to indication, i.e. head), or iterative reconstruction technique. FINDINGS: There are severe osteoarthritic changes of the left hip with dysplastic changes of the left femoral head. There is collapse of the left femoral head and mild lateral subluxation. Subarticular cystic changes are present involving the acetabulum with lytic changes involving the acetabular roof laterally. Calcific debris is present within the hip joint. Calcification is noted along the anterior aspect of the hip joint and may be related to calcification within a distended bursa of the hip. There is contiguous fluid density anterior to the hip joint and anterior to the anterior column of the acetabulum which may represent distended bursa. IMPRESSION: Abnormal CT of the left hip. There is severe flattening of the left femoral head with mild lateral subluxation of the femur as noted on the recent radiograph. Destructive changes are also present involving the acetabulum. Some of these lesions appear more aggressive than what 1 would expect for a subarticular cyst especially in the roof of the acetabulum anteriorly. There is some subcortical lucency also of the femoral head which appears somewhat more circumscribed and may represent subarticular cyst. Periarticular calcific debris and distended bursa also noted. Differential diagnosis would include Charcot joint of the hip versus underlying infection/septic arthritis/osteomyelitis. Severe erosive osteoarthritic change would also be included in the differential diagnosis. Dictated by: Hema Chen MD 09/29/2019 05:58 Electronically signed by Hema Chen MD in [place] 09/29/2019 05:58
[2019-09-28 19:44] LABS: Chloride 97 mmol/L (98-107); Sodium 137 mmol/L (136-145)
[2019-09-28 19:45] LABS: Potassium 3.8 mmoL/L (3.5-5.1)
[2019-09-28 19:47] LABS: Alanine Aminotransferase 29 U/L (12-78); Albumin Level 3.7 g/dl (3.5-5.0); Albumin/Globulin Ratio 1.3 (1.1-1.8); Alkaline Phosphatase 111 U/L (38-126); Anion Gap 11.8 mEq/L (5-15); Aspartate Amino Transferase 28 U/L (14-36); Bilirubin,Total 0.2 mg/dl (0.2-1.3); Blood Urea Nitrogen 18 mg/dl (7-17); Carbon Dioxide 32 mmol/L (22.0-30.0); Estimated Glomerular Filt Rate 86 ml/min (>60); GFR (African American) 104 ML/MIN (>60); Globulin 2.9 g/dL (1.3-3.2); Glucose 126 mg/dl (74-100); Total Protein,Serum 6.6 g/dl (6.3-8.2)
[2019-09-28 19:48] LABS: Calcium 9.1 mg/dl (8.4-10.2)
== END ==
PROVIDERS: Visit Provider Orthopaedic Surgery
DX: M16.12 Unilateral primary osteoarthritis, left hip (principal)
CPT/HCPCS: 36415; 73700; 80053; 85025; 85610; 85730; 86850

== ENCOUNTER 2019-09-29 07:04 | Inpatient (IN) ==
--- NOTE | 2019-09-29 10:13 | Progress Note ---
[facility] Anesthesia Checklist - Structural Data Admitted From: Home Planned Operative Procedure/s: l total hip Consent for Planned Operative Procedure(s) Verified: Yes - Additional verifications Anesthesia Reactions: No Hx Blood Transfusions: Yes Blood Transfusion Reaction: No - Airway Assessment C-Spine Mobility Assessed: Yes TMJ Mobility Assessed: Yes Dentition: Good Dentition - Neurological Assessment Level of Consciousness: Awake, Alert, Appropriate - Anesthesia Plan Anesthesia Risk discussed: Yes Anesthesia Plan: Verified ASA Class: III Anesthesia Type: Spinal [facility] History I have reviewed the patient's past medical history: Yes Medical History: Reports:: Anxiety, Arrhythmia, Asthma, Cancer (nasal), Coronary Artery Disease, Depression, Diabetes Mellitus Type 2, Gastroesophageal Reflux Disease(GERD), Hypertension, Migraine, Palpitations Denies:: Aneurysm, Atrial Fibrillation, Chronic Obstructive Pulmonary Disease (COPD), Cerebrovascular Accident, Deep Vein Thrombosis, Diabetes Mellitus Type 1, Gastrointestinal Bleed, Hyperlipidemia, Internal Pacemaker, Kidney Stones, MRSA, Myocardial Infarction, Osteoporosis, Peripheral Artery Disease, Pulmonary Embolism, Renal Disease, Seizures, Supraventricular Tachycardia, Transient Ischemic Attacks (TIA), Valvular Heart Disease Comment Only: Congestive Heart Failure (diastolic dysfunction) *Have you ever received a pneumonia vaccine?: Yes *Have you received a flu vaccine this season?: Yes Other Medical History: Reports: Anemia, Arthritis, Cataracts, Fibromyalgia, Sinus Problems. Denies: Blood Transfusion Reaction, Chemotherapy, Glaucoma, Acquired Immunodeficiency Syndrome (AIDS), HIV, Hoarseness, Hormone Therapy, Hypothyroidism, Liver Disease, Osteoporosis, Radiation Therapy, Sickle Cell Disease, Thyroid Disease, Unexplained Bleeding Anesthesia experience/problems:: none Laterality Cases: Left: Breast Biopsy, Right: Arthroscopy Knee, Bilateral: Other Other Surgeries: Yes: Appendectomy, Bariatric Surgery, Cholecystectomy, Colonoscopy, Dilation and Curettage, EGD, Hysterectomy-Total, Other (spinal stimulator, pain pump). No: Pacemaker Amputation: No Fractures: No - *Social History Educational Level: Completed College Smoking Status: Never smoker Tobacco Type: cigarettes # Packs/Day (cigarettes): 0 #Yrs smoked (if former smoker): 0 Alcohol Intake: never Alcohol Intake Frequency:: 0-2 drinks per day Substance Use Type: denies use *Occupational Status:: retired Housing: house Household Members: spouse *Travel in the last 8 weeks: None - Psychiatric History Pschychiatric History:: Reports:: Anxiety, Depression Family Hx:: Cancer, Coronary Artery Disease, Diabetes, Hypertension
--- NOTE | 2019-09-29 16:54 | History & Physical Report ---
*Admission Date: 09/29/19 *Reason for consult:: s/p L ADELFO *History of present illness: 59-year-old female with severe DJD L hip with chronic pain. She saw me 08/16/2019 for the first time and reports several years of hip pain, worsening over the preceding month. She also has longstanding issues with her lumbar spine; s/p L3- L5 [place] [address] Friedman. She has chronic radiculopathy and is in pain management; she has both an implanted neural stimulator and intrathecal pain pump. Surgery was planned on the hip (ADELFO) and she received clearance from her PCP, awake overnight monitor, dentist and neurosurgeon. At her pre-op visit with me on 09/11/2019 she reported a sudden, severe increase in pain the day prior, having experienced a pop in the hip while walking in her kitchen. Since that day she has been unable to walk more than a few feet, and just bearing weight has been very painful. XR 09/10/2019 revealed further collapse of the femoral head; I estimated this to be roughly 20-25% collapse. The acetabulum was noted to be dysplastic as well, with multiple subcortical cystic lesions and a thin medial wall. Her ADELFO was initially scheduled for 09/14/2019 but cancelled due to the patient developing gastroenteritis with diarrhea. She was treated by her PCP for this and recovered in a few days with no lingering symptoms; afebrile throughout. Surgery was rescheduled for 09/21/2019 but cancelled due to the outbreak of coronavirus in our state, causing multiple staff to become quarantined. As of 09/28/2019, there are were patients admitted to our hospital with suspicion of covid-19, no staff members that are symptomatic, and sufficient staff have been released from quarantine to fully staff our OR. In my eyes I view this as an urgent procedure, as her femoral head is actively collapsing and she is nearly totally disabled. She has been off of her aspirin since 09/10/2019. She initially took her Bactroban for 5 days prior to surgery but when it was canceled did not restart it. I added vancomycin to her perioperative antibiotic plan in lieu of completing Bactroban. Repeat labs were drawn last night and with the exception of mild anemia (Hgb 10.6) they were within normal limits. Surgery was performed today without intra-operative complication, though there was significant EBL of 1400cc. This was replenished intra-operatively with 2 units PRBCs. The acetabulum was dysplastic and curettage/grafting of subcortical cysts + addition of a Vitoss mesh was required, followed by a [place] MCM cup with additional wedge augment; ceramic femoral head used. 3L crystalloid given intra-op (normal saline); UOP was 800cc during case. Hemodynamically stable throughout the case. Past medical history is significant for CHF, DM, GERD, asthma, CAD, migraines, HTN, and anxiety/depression. Allergies reported to keflex, morphine, PCN and adhesive tape. Home medications include aspirin, carvedilol, vit C/D, arthrotec, duloxetine, iron, gabapentin. She lives in a multi-story home with her and 4 children. She uses a walker at baseline. Her intrathecal pain pump was last refilled with dilaudid on 09/08/2019. [facility] History I have reviewed the patient's past medical history: Yes Medical History: Reports:: Anxiety, Arrhythmia, Asthma, Cancer (nasal), Coronary Artery Disease, Depression, Diabetes Mellitus Type 2, Gastroesophageal Reflux Disease(GERD), Hypertension, Migraine, Palpitations Denies:: Aneurysm, Atrial Fibrillation, Chronic Obstructive Pulmonary Disease (COPD), Cerebrovascular Accident, Deep Vein Thrombosis, Diabetes Mellitus Type 1, Gastrointestinal Bleed, Hyperlipidemia, Internal Pacemaker, Kidney Stones, MRSA, Myocardial Infarction, Osteoporosis, Peripheral Artery Disease, Pulmonary Embolism, Renal Disease, Seizures, Supraventricular Tachycardia, Transient Ischemic Attacks (TIA), Valvular Heart Disease Comment Only: Congestive Heart Failure (diastolic dysfunction) *Have you ever received a pneumonia vaccine?: Yes *Have you received a flu vaccine this season?: Yes Other Medical History: Reports: Anemia, Arthritis, Cataracts, Fibromyalgia, Sinus Problems. Denies: Blood Transfusion Reaction, Chemotherapy, Glaucoma, Acquired Immunodeficiency Syndrome (AIDS), HIV, Hoarseness, Hormone Therapy, Hypothyroidism, Liver Disease, Osteoporosis, Radiation Therapy, Sickle Cell Disease, Thyroid Disease, Unexplained Bleeding Anesthesia experience/problems:: none Laterality Cases: Left: Breast Biopsy, Right: Arthroscopy Knee, Bilateral: Other Other Surgeries: Yes: Appendectomy, Bariatric Surgery, Cholecystectomy, Colonoscopy, Dilation and Curettage, EGD, Hysterectomy-Total, Other (spinal stimulator, pain pump). No: Pacemaker Amputation: No Fractures: No - *Social History Educational Level: Completed College Smoking Status: Never smoker Tobacco Type: cigarettes # Packs/Day (cigarettes): 0 #Yrs smoked (if former smoker): 0 Alcohol Intake: never Alcohol Intake Frequency:: 0-2 drinks per day Substance Use Type: denies use *Occupational Status:: retired Housing: house Household Members: spouse *Travel in the last 8 weeks: None - Psychiatric History Pschychiatric History:: Reports:: Anxiety, Depression Family Hx:: Cancer, Coronary Artery Disease, Diabetes, Hypertension Review of Systems - Review of Systems Review of systems:: pertinent systems reviewed and negative unless documented below Meds Home Medications Medication Instructions Recorded Confirmed Type ascorbic acid (vitamin C) 500 mg 500 mg PO QDAY 07/16/17 09/29/19 History tablet aspirin 81 mg tablet,delayed 81 mg PO QDAY 07/16/17 09/29/19 History release carvedilol 12.5 mg tablet 12.5 mg PO BID 07/16/17 09/29/19 History cholecalciferol (vitamin D3) 10 400 unit PO QDAY 07/16/17 09/29/19 History mcg (400 unit) capsule diclofenac 75 mg-misoprostol 200 1 tab PO BID 07/16/17 09/29/19 History mcg tablet,immediate,delayed release duloxetine 20 mg capsule,delayed 30 mg PO QDAY 07/16/17 09/29/19 History release lamotrigine 300 mg tablet,extended 200 mg PO QDAY tab 07/16/17 09/29/19 History release 24 hr montelukast 10 mg tablet 10 mg PO QHS 07/16/17 09/29/19 History oxcarbazepine 300 mg tablet 300 mg PO BID 07/16/17 09/29/19 History Gabapentin [Gabapentin 800mg Tab] 800 mg PO DAILY 07/31/17 09/29/19 History ibuprofen 800 mg tablet 800 mg PO BID PRN tab 09/22/17 09/29/19 History duloxetine 60 mg capsule,delayed 60 mg PO DAILY 03/27/18 09/29/19 History release tramadol 50 mg tablet 50 mg PO Q6H 03/27/18 09/29/19 History lorazepam 0.5 mg tablet 1 mg PO QHS PRN tab 08/16/19 09/29/19 History ferrous sulfate, dried 159 mg (45 1 mg PO DAILY 08/25/19 09/29/19 History mg iron) tablet,extended release zolpidem 10 mg tablet 10 mg PO QHS PRN tab 08/25/19 09/29/19 History hydrocodone 7.5 mg-acetaminophen 1 tab PO Q8H PRN #14 tab 09/10/19 09/29/19 Rx 325 mg tablet mupirocin 2 % topical ointment 1 applic TOPICAL BID #15 g 09/10/19 09/29/19 Rx hydrocodone 5 mg-acetaminophen 325 1 tab PO BID PRN #20 tab 09/16/19 09/29/19 Rx mg tablet hydrocodone 5 mg-acetaminophen 325 1 tab PO BID PRN #20 tab 09/20/19 09/29/19 Rx mg tablet Triamterene/Hydrochlorothiazid 1 tab PO DAILY 09/29/19 09/29/19 History [Maxzide-25 tablet] Allergies Allergy/AdvReac Type Severity Reaction Status Date / Time cephalexin [From Keflex] Allergy Severe "SERUM Verified 09/13/19 15:53 SICKNESS"; JOINTS LOCKED morphine Allergy Intermediate I-HIVES Verified 09/13/19 15:53 Penicillins Allergy Intermediate I-HIVES Verified 09/13/19 15:53 adhesive tape AdvReac Verified 09/13/19 15:53 Exam Vital signs and Labs for Last 24 Hours: Temp Pulse Resp BP Pulse Ox 99.8 F H 82 12 125/65 95 09/29/19 07:35 09/29/19 07:35 09/29/19 14:30 09/29/19 07:35 09/29/19 07:35 Laboratory Results - last 24 hr 09/28/19 18:50: Crossmatch (AHG) See Detail 09/28/19 18:52: Crossmatch (AHG) See Detail 09/29/19 07:51: POC Glucose 86 I & O for Last 24 hours: Intake & Output 09/27/19 09/28/19 09/29/19 09/30/19 11:59 11:59 11:59 11:59 Weight 169 lb - Constitutional no acute distress, obese - *Routine HEENT Exam Head: Present: normocephalic Eye: Present: EOMI ENT: Present: mucous membranes moist - *Routine Neck Exam Present: supple - *Routine Respiratory Exam Present: CTA bilaterally. Absent: respiratory distress, wheezes - *Routine Cardiovascular Exam Present: RRR - *Routine Abdominal Exam Present: soft. Absent: tenderness - *Routine Exam Comments: membreno to gravity with clear yellow urine - *Routine Extremities Exam Comments: hip abduction pillow in place dressing L hip c/d/i, no drainage or strikethrough +DF/PF/EHL LLE palpable pedal pulses L foot; foot warm, BCR SILT distally LLE in all distributions - *Routine Skin Exam Present: intact, warm - *Routine Neurological Exam Present: alert, oriented X3, moving all extremities, normal tone. Absent: sensory deficit, motor deficit Results - Labs Labs: Abnormal lab results 09/28/19 09/28/19 Range/Units 18:50 18:52 Crossmatch (AHG) See Detail See Detail All other labs normal. Assessment and Plan (1) Degenerative joint disease of left hip Current visit: Yes Status: Acute Category: Medical Code(s): M16.12 - Unilateral primary osteoarthritis, left hip (2) Diabetes Current visit: Yes Status: Acute Category: Medical Code(s): E11.9 - Type 2 diabetes mellitus without complications (3) CAD (coronary artery disease) Current visit: No Status: Chronic Qualifiers: Coronary Disease-Associated Artery/Lesion type: [place] artery [place] vs. transplanted heart: [place] heart Associated angina: without angina Qualified Code(s): I25.10 - Atherosclerotic heart disease of [place] coronary artery without angina pectoris Category: Medical Code(s): I25.10 - Atherosclerotic heart disease of [place] coronary artery without angina pectoris (4) DDD (degenerative disc disease), lumbar Current visit: No Status: Chronic Category: Medical Code(s): M51.36 - Other intervertebral disc degeneration, lumbar region (5) HTN (hypertension) Current visit: No Status: Chronic Qualifiers: Hypertension type: essential hypertension Qualified Code(s): I10 - Essential (primary) hypertension Category: Medical Code(s): I10 - Essential (primary) hypertension - Assessment and plan all Dx Assessment and Plan for all problems:: 59yo F POD 0 s/p L ADELFO -- admit to med/surg floor -- restart home medications -- Dr. Rivera on consult; patient's PCP is Dr. De La Torre -- pain management: oral/IV (percocet/dilaudid) -- DVT prophy: lovenox to start tomorrow x 2 weeks, then aspirin x 1 month -- continue 24 hr prophy antibiotics -- WBAT LLE -- PT/OT to eval -- posterior hip precautions, abduction pillow while in bed -- first dressing change 10/01/2019; do not remove, reinforce and notify MD of drainage -- ice pack L hip -- dispo: plan is to d/c home with either HHPT or OPPT
--- NOTE | 2019-09-29 16:54 | Operative Note ---
Date of procedure: 09/29/19 Pre-op Diagnosis:: L hip degenerative joint disease, severe Post-op Diagnosis:: L hip degenerative joint disease, severe Procedure performed:: L total hip arthroplasty Surgeon:: Letha Pedersen MD [employer] Supervisor(s):: MD Beatriz Yousif KCSA EMISSIONS REPAIR TECHNICIAN:: Philip Jamison Anesthesia: MAC, spinal Estimated blood loss (mL): 1,400 Clinical Note:: 59-year-old female with severe DJD L hip with chronic pain. She saw me 08/16/2019 for the first time and reports several years of hip pain, worsening over the preceding month. She also has longstanding issues with her lumbar spine; s/p L3- L5 [place] [address] Friedman. She has chronic radiculopathy and is in pain management; she has both an implanted neural stimulator and intrathecal pain pump. Surgery was planned on the hip (ADELFO) and she received clearance from her PCP, piling setter, dentist and neurosurgeon. At her pre-op visit with me on 09/11/2019 she reported a sudden, severe increase in pain the day prior, having experienced a pop in the hip while walking in her kitchen. Since that day she has been unable to walk more than a few feet, and just bearing weight has been very painful. XR 09/10/2019 revealed further collapse of the femoral head; I estimated this to be roughly 20-25% collapse. The acetabulum was noted to be dysplastic as well, with multiple subcortical cystic lesions and a thin medial wall. Her ADELFO was initially scheduled for 09/14/2019 but cancelled due to the patient developing gastroenteritis with diarrhea. She was treated by her PCP for this and recovered in a few days with no lingering symptoms; afebrile throughout. Surgery was rescheduled for 09/21/2019 but cancelled due to the outbreak of coronavirus in our state, causing multiple staff to become quarantined. As of 09/28/2019, there are were patients admitted to our hospital with suspicion of covid-19, no staff members that are symptomatic, and sufficient staff have been released from quarantine to fully staff our OR. In my eyes I view this as an urgent procedure, as her femoral head is actively collapsing and she is nearly totally disabled. She has been off of her aspirin since 09/10/2019. She initially took her Bactroban for 5 days prior to surgery but when it was canceled did not restart it. I added vancomycin to her perioperative antibiotic plan in lieu of completing Bactroban. Repeat labs were drawn last night and with the exception of mild anemia (Hgb 10.6) they were within normal limits. I discussed treatment options with the patient and I r ecommend total hip arthroplasty. I do not believe any other interventions (oral analgesics, corticosteroid injections, physical therapy) will provide effective, long-lasting pain relief. Her function and quality of life are declining and I believe ADELFO will improve this. I discussed surgery with the patient, including the surgical technique and expected perioperative course, including length of hospitalization, need for postoperative physical therapy, use of anticoagulants, expected level of pain, and total length of recovery. I also explained the potential risks of surgery, including bleeding, infection, fracture, wound healing complications, need for revision surgery, continued pain post- operatively, DVT/PE, and risks of both general and regional anesthesia, including nerve damage, heart attack, stroke and even . The patient vocalized understanding of these risks and provided informed consent for the procedure. Operative findings:: Implants: Acetabulum: 1) autograft: reamings from acetabulum + morselized femoral head 2) Vitoss allograft cup 3) Wolcott Trident II Tritanium Multihole Acetabular Shell, 62mm 4) 6.5mm low profile hex screws x3 (20, 20, 30mm) --> in shell 5) Mosque Acetabular Wedge Augment, OD 62/ID 64 [layer of Simplex cement w/tobramycin layered between augment and shell] 6) Mosque Gap Plate Screws x2 (20, 30mm) --> in augment 7) MDM liner, 48mm ID Femur: 1) Wolcott Accolade II 127 degree neck angle hip stem (high-offset) -- size 5 2) Mosque (poly) X3 insert, 28 ID 3) Biolox delta ceramic femoral head, 28mm +4 Operative note:: The patient was identified in preoperative holding and the left hip signed by myself. I reviewed her preoperative lab work and clearances. Consent was reviewed with the patient and all questions answered. She was then seen by anesthesia and the discussion was had regarding general versus spinal anesthetic; the patient elected for spinal anesthesia. The patient was then taken to the OR and in a seated position, spinal anesthetic was administered by EMISSIONS REPAIR TECHNICIAN. IV sedation was then administered. The patient was transferred to the operative table, where she was placed in the right lateral decubitus position and secured on a pegboard with long pegs. All pegs and all bony prominences wer e well-padded. Prior to this a Soria catheter had been placed, which was secured under the bed. SCDs were placed on the right lower extremity. The left hip was then prepped and draped in the usual sterile fashion for hip arthroplasty. Both IV clindamycin and IV vancomycin had begun infusion by this point. and per arthroplasty protocol, transexamic acid 10 mg/kg grams began infusion by anesthesia just prior to incision. Timeout was performed, identifying the correct patient, correct procedure, and correct site. The procedure was begun by making a curvilinear, longitudinal incision over the posterolateral aspect of the left hip, using anatomic landmarks in the standard fashion. After the skin was incised, deeper dissection was carried on with electrocautery. The patient had abundant subcutaneous adipose tissue, and the fascia was fairly deep; Adonis retractors were needed to expose the fascia. This was then incised with a fresh 10 blade and curved Toussaint scissors used to extend the fascia proximally and distally in line with the long axis of the limb. Charnley retractor was placed under the fascia to expose the hip joint. With the hip in slight internal rotation, the short external rotators, capsule, gluteus medius and all surrounding deep structures were scarred together. They were all reflected off the bone with cautery and tagged with ethibond suture. Much of the medius was sacrified for exposure, as there was abundant scar tissue and tissue contracture that adequate exposure wound not have been possible without this; it was repaired at the end of the case. The leg was further internally rotated until it was dislocated; this was done carefully to avoid fracture. The femoral head was flattened and the neck shortened into varus. Standard oscillating saw was used to make the desired femoral neck cut, approximately 1cm proximal to the lesser trochanter. The head was removed intact and saved on the back table. A series of retractors were used to obtain adequate acetabular exposure. The labrum was sharply excised with a long-handled scalpel. The acetabulum was deformed, borderline dysplastic, with enlargement and proximal migration of the hip center. There were multiple subcortical cysts in the acetabulum, which were curetted and the gelatinous filling removed. 48mm reamer was placed and used to medialize gently, taking care to avoid penetrating the medial wall of the acetabulum. Reamers of increasing size were used until a 61 appeared to give an appropriate fit. The reamer was used with inferiorly directed pressure to attempt reestablishment of a more normal hip center and restore leg length. This reamer, and the appropriate 62mm trial, fit the reamed area well, but a defect was left superiorly. The decision was made to use a 62mm shell with a superior wedge augment. The medial wall of the acetabulum was very thin and centrally felt like fibrous tissue rather than bone; inferiorly there was a defect where there had been a large cyst, measuring ~1.5 x 1.5cm. The acetabulum was irrigated and grafted with a Vitoss cup soaked in blood. The cup was trimmed superiorly, and the top 1/3 of the cup was removed to expose healthy superior acetabular bone for the cup to self propelled dredge operator. Next the Trident II cup, 62mm, was impacted. It was a multihole cup and 3 screws placed into the anterosuperior quadrant, measuring 20mm, 30mm, and 30mm. A Mosque Acetabular Wedge Augment was then placed over the superior cup and pinned in place with a k-wire. Two screw holes were drilled and screw lengths measures. Next a thin layer of Simplex cement was applied to the superior cup, which had some undercoverage, and the augment placed on top of this, using the k-wire as a guide. While the cement was still soft, the two screws were placed through the augment and secured in place. The k-wire was removed and cement allowed to harden. The appropriate, 48mm ID MDM metal liner was then placed in the appropriate position and impacted; freer was used to run the edges of the liner to ensure it was appropriately positioned and locked into place. During acetabular work, the patient bled quite a bit, and because her pre-operative hemoglobin was 10.6, we made the decision to transfuse intra-operatively; 2 units PRBCs were given during the case. Attention was then turned to the femur. Box chisel was used to remove a wedge of bone proximally and create a lateral starting point for the stem. Canal finder was used to create a path through the proximal metaphyseal region of the bone and into the femoral shaft. Next, broaching was started with a #0 broach, re-cr eating the patient's natural femoral anteversion of ~15-20 degrees. Broaches of increasing size were passed until a size 5 provided the appropriate fit. Trial neck/head were placed and the hip reduced; as the hip was taken through a ranged of motion, it did not appear optimally stable, and the leg still appeared slightly short. After multiple trials, the desired arrray of femoral components was: size 5 high-offset stem, +4 head. With these components, the patient had good range of motion, 1-2mm shuck, and did not begin to dislocate until around 80 degrees internal rotation; leg lengths were roughly equal here as well. All trial femoral components were then removed, the femur lightly irrigated, and final components placed: size 5 Accolade II high-offset stem, Mosque X3 (poly) insert with Biolox delta ceramic inner head, 28mm +4. The hip was irrigated once more and reduced. Betadine soak was performed for 2 minutes, and periarticular injection with a pre-mixed joint cocktail (epinephrine, toradol, bupivacaine; morphine was omitted due to patient allergy) was given. The piriformis/external rotators and gluteus medius were then repaired over a bone bridge in the greater trochanter and the remainder of the wound closed in a layered fascia, with separate closures of fascia, deep subcutaneous tissue, subcutaneous tissue, and subcuticular tissue/skin. The skin was then sealed with dermabond/Prineo mesh and dressed with Silverlon dressing. An additional layer of 4x4s/ABDs was added and secured with foam tape. The patient was then transferred to hospital bed and an abduction pillow placed between her legs and secured in place. She was transferred to PACU in good condition. Tourniquet time (min): 0 Condition: stable Disposition: PACU Specimens:: L femoral head Complications:: intra-operative blood loss 1400cc, 2 units PRBC given in OR
--- NOTE | 2019-09-29 17:07 | Progress Note ---
[facility] Anesthesia Record Part I Intake, IV Amount: 3,000 Estimated blood loss (mL): 1,500 Urine output (mL): 800 Blood Pressure: 96/56 SaO2: 94 Pulse Rate: 65 Respiratory Rate: 14 Temperature: 97.6 F Patient is:: Awake, Stable Stable to PACU at:: 16:00 Comments:: pt co shoulder pain, dr sanford aware, iv infiltrated attempting to get another iv x 6 attempts
--- NOTE | 2019-09-29 18:08 | Pharmacy Consult Notes ---
- Pharmacy Consult Date: 09/29/19 Time: 18:07 Referring provider: DR. SANCHEZ Reason for Consult:: VANCOMYCIN DOSING Allergies and ADEs:: Allergies Allergy/AdvReac Type Severity Reaction Status Date / Time cephalexin [From Keflex] Allergy Severe "SERUM Verified 09/13/19 15:53 SICKNESS"; JOINTS LOCKED morphine Allergy Intermediate I-HIVES Verified 09/13/19 15:53 Penicillins Allergy Intermediate I-HIVES Verified 09/13/19 15:53 adhesive tape AdvReac Verified 09/13/19 15:53 Home Medications:: Home Medications Medication Instructions Recorded Confirmed Type ascorbic acid (vitamin C) 500 mg 500 mg PO QDAY 07/16/17 09/29/19 History tablet aspirin 81 mg tablet,delayed 81 mg PO QDAY 07/16/17 09/29/19 History release carvedilol 12.5 mg tablet 12.5 mg PO BID 07/16/17 09/29/19 History cholecalciferol (vitamin D3) 10 400 unit PO QDAY 07/16/17 09/29/19 History mcg (400 unit) capsule diclofenac 75 mg-misoprostol 200 1 tab PO BID 07/16/17 09/29/19 History mcg tablet,immediate,delayed release duloxetine 20 mg capsule,delayed 30 mg PO QDAY 07/16/17 09/29/19 History release lamotrigine 300 mg tablet,extended 200 mg PO QDAY tab 07/16/17 09/29/19 History release 24 hr montelukast 10 mg tablet 10 mg PO QHS 07/16/17 09/29/19 History oxcarbazepine 300 mg tablet 300 mg PO BID 07/16/17 09/29/19 History Gabapentin [Gabapentin 800mg Tab] 800 mg PO DAILY 07/31/17 09/29/19 History ibuprofen 800 mg tablet 800 mg PO BID PRN tab 09/22/17 09/29/19 History duloxetine 60 mg capsule,delayed 60 mg PO DAILY 03/27/18 09/29/19 History release tramadol 50 mg tablet 50 mg PO Q6H 03/27/18 09/29/19 History lorazepam 0.5 mg tablet 1 mg PO QHS PRN tab 08/16/19 09/29/19 History ferrous sulfate, dried 159 mg (45 1 mg PO DAILY 08/25/19 09/29/19 History mg iron) tablet,extended release zolpidem 10 mg tablet 10 mg PO QHS PRN tab 08/25/19 09/29/19 History hydrocodone 7.5 mg-acetaminophen 1 tab PO Q8H PRN #14 tab 09/10/19 09/29/19 Rx 325 mg tablet mupirocin 2 % topical ointment 1 applic TOPICAL BID #15 g 09/10/19 09/29/19 Rx hydrocodone 5 mg-acetaminophen 325 1 tab PO BID PRN #20 tab 09/16/19 09/29/19 Rx mg tablet hydrocodone 5 mg-acetaminophen 325 1 tab PO BID PRN #20 tab 09/20/19 09/29/19 Rx mg tablet Triamterene/Hydrochlorothiazid 1 tab PO DAILY 09/29/19 09/29/19 History [Maxzide-25 tablet] Height: 1.7 m Weight: 76.657 kg Laboratory Results:: Laboratory Results - last 24 hr 09/28/19 18:50: Crossmatch (AHG) See Detail 09/28/19 18:52: Crossmatch (AHG) See Detail 09/29/19 07:51: POC Glucose 86 Medical History: Reports:: Anxiety, Arrhythmia, Asthma, Cancer (nasal), Coronary Artery Disease, Depression, Diabetes Mellitus Type 2, Gastroesophageal Reflux Disease(GERD), Hypertension, Migraine, Palpitations Denies:: Aneurysm, Atrial Fibrillation, Chronic Obstructive Pulmonary Disease (COPD), Cerebrovascular Accident, Deep Vein Thrombosis, Diabetes Mellitus Type 1, Gastrointestinal Bleed, Hyperlipidemia, Internal Pacemaker, Kidney Stones, MRSA, Myocardial Infarction, Osteoporosis, Peripheral Artery Disease, Pulmonary Embolism, Renal Disease, Seizures, Supraventricular Tachycardia, Transient Ischemic Attacks (TIA), Valvular Heart Disease Comment Only: Congestive Heart Failure (diastolic dysfunction) Assessment and Plan (1) Degenerative joint disease of left hip Current visit: Yes Status: Acute Category: Medical Code(s): M16.12 - Unilateral primary osteoarthritis, left hip (2) Diabetes Current visit: Yes Status: Acute Category: Medical Code(s): E11.9 - Type 2 diabetes mellitus without complications (3) CAD (coronary artery disease) Current visit: No Status: Chronic Qualifiers: Coronary Disease-Associated Artery/Lesion type: [place] artery [place] vs. transplanted heart: [place] heart Associated angina: without angina Qualified Code(s): I25.10 - Atherosclerotic heart disease of [place] coronary artery without angina pectoris Category: Medical Code(s): I25.10 - Atherosclerotic heart disease of [place] coronary artery without angina pectoris (4) DDD (degenerative disc disease), lumbar Current visit: No Status: Chronic Category: Medical Code(s): M51.36 - Other intervertebral disc degeneration, lumbar region (5) HTN (hypertension) Current visit: No Status: Chronic Qualifiers: Hypertension type: essential hypertension Qualified Code(s): I10 - Essential (primary) hypertension Category: Medical Code(s): I10 - Essential (primary) hypertension - Assessment and plan all Dx Assessment and Plan for all problems:: BASED ON PATIENT FACTORS, RECOMMEND VANCOMYCIN 1500 MG IV ONCE FOR PRE-OP DOSE, THEN VANCOMYCIN 1250 MG IV Q12H X 2 DOSES FOR POST-OP PROPHYLAXIS.
--- NOTE | 2019-09-29 19:06 | Procedure Note ---
[facility] Procedure Note Procedure Note:: Procedure: Right internal jugular vein triple-lumen catheter Indications: Inadequate venous access; dehydration; status post complex orthopedic intervention Prep: Chlorhexidine Anesthesia: 1% lidocaine Description: After informed consent was obtained the patient was maintained in a supine position. Her left chest and neck were prepped and draped in a sterile fashion. After infiltration local anesthetic attempts were made at accessing the left internal jugular vein. Appropriate "flash" was not noted. Attempts at accessing the left subclavian vein were also not successful. The patient was then placed in an even more Trendelenburg position and the right neck and chest were prepped and draped in a sterile fashion. After infiltration local anesthetic a large-bore needle was utilized to access the right subclavian vein. Utilizing the Seldinger technique an 8 Chinese triple-lumen catheter was secured in position. The catheter was secured at 16 cm. All 3 ports flushed without difficulty. The brown port did not aspirate. Chest x-ray is pending. Estimated blood loss: 5 mL Complications: No immediate
[2019-09-29 19:17] LABS: Hematocrit 28.5 % (37.0-47.0); Hemoglobin 9.5 g/dL (12.2-16.2)
[2019-09-30 06:11] LABS: Lymphocytes # 0.7 K/mm3 (0.7-4.5); Monocytes # 0.5 K/mm3 (0.1-1.0)
[2019-09-30 06:18] LABS: Anion Gap 9.4 mEq/L (5-15)
[2019-09-30 06:36] LABS: Basophils % 0.2 % (0.1-2.0); Eosinophils % 0.6 % (0.1-12.0); Lymphocytes % 8.8 % (10-50); Mean Corpuscular HGB Conc 32.6 g/dL (31.8-35.4); Mean Corpuscular Volume 90.1 fl (81-99); Mean Platelet Volume 7.9 fl (7.4-10.4); Monocytes % 6.5 % (1.7-9.3); Neutrophils # 6.3 K/mm3 (1.8-7.8); Neutrophils % 83.9 % (37.0-80.0); Platelet Count 218 K/mm3 (142-424); Red Blood Count 2.27 M/mm3 (4.20-5.40); Red Cell Distribution Width 13.4 % (11.5-17.5); White Blood Count 7.5 K/mm3 (4.8-10.8)
[2019-09-30 06:43] LABS: Calcium 7.5 mg/dl (8.4-10.2)
[2019-09-30 06:45] LABS: Hematocrit 20.5 % (37.0-47.0); Hemoglobin 6.7 g/dL (12.2-16.2)
--- NOTE | 2019-09-30 07:20 | Pharmacy Consult Notes ---
[facility] Pharmacy VTE Monitoring - Patient Demographics Admission date: 09/29/19 Report Date: 09/30/19 Time: 07:20 Allergies/Adverse Reactions: Patient Allergies cephalexin [From Keflex] Allergy (Severe, Verified 09/13/19 15:53) "SERUM SICKNESS"; JOINTS LOCKED morphine Allergy (Intermediate, Verified 09/13/19 15:53) I-HIVES Penicillins Allergy (Intermediate, Verified 09/13/19 15:53) I-HIVES adhesive tape Adverse Reaction (Verified 09/13/19 15:53) Height: 1.7 m Weight: 95.339 kg Patient Problems: Current Active Problems Degenerative joint disease of left hip (Acute) Diabetes (Acute) - VTE Risk Labs: VTE Related Lab Results Hgb 6.7 g/dL (12.2-16.2) L* D 09/30/19 05:30 Hct 20.5 % (37.0-47.0) L* 09/30/19 05:30 Plt Count 218 K/mm3 (142-424) D 09/30/19 05:30 BUN 17 mg/dl (7-17) 09/30/19 05:30 Creatinine 0.60 mg/dl (0.52-1.04) 09/30/19 05:30 Estimated Creat Clear 152 mL/min (50-200) 09/30/19 05:30 VTE Score: 6 VTE Risk Level: Moderate Risk - Prophylaxis VTE Prophylaxis Ordered?: Yes Types of VTE Prophylaxis: IPCS Thigh High, Pharmacological Location of Applied Device: Right Leg Pharmacologic Type: Enoxaparin - VTE Diagnosis Confirmed Treatment or plan recommended: Continue Current Treatment
--- NOTE | 2019-09-30 07:52 | Progress Note ---
[facility] Anesthesia Record Part II Discharge Time: 19:10 Destination: Medical Surgical Department PACU nurse assessment reviewed?: Yes Patient Condition:: Good Anesthesia Complications:: None Swallowing reflex intact?: Yes Cyanosis?: No Blood Pressure: 144/97 Pulse Rate: 113 Temperature: 97.1 F Mental Status: Alert & Oriented Pain level:: 0 Nausea and/or vomitting:: None Intake, IV Amount: 100
[2019-09-30 08:35] LABS: Hematocrit 20.8 % (37.0-47.0); Hemoglobin 6.7 g/dL (12.2-16.2)
--- NOTE | 2019-09-30 09:16 | Progress Note ---
Subjective Date: 09/30/19 Time: 09:00 Principal diagnosis: s/p L ADELFO Interval history: The patient is doing well this morning. IV access was lost in PACU and a central line placed; R IJ triple lumen. Her temperature was mildly elevated overnight but no mateus fevers reported. She has pain in the R shoulder that is improving and her L hip pain is well-controlled with pain medication. Her Hgb was low this morning at 6.7; this was after 2 units PRBC during surgery, but also 3L crystalloid. She is awake and alert this morning and doing well. PN: Obj Ex Vital signs: Temp Pulse Resp BP Pulse Ox 98.3 F 100 H 16 102/57 L 100 09/30/19 08:00 09/30/19 08:00 09/30/19 08:00 09/30/19 08:00 09/30/19 08:00 - Constitutional no acute distress - Routine Extremities Exam Comments: hip abduction pillow in place dressing L hip c/d/i, no drainage or strikethrough +DF/PF/EHL LLE palpable pedal pulses L foot; foot warm, BCR SILT distally LLE in all distributions - Urinary Catheter Management Membreno Cath placed during this visit: no Urethral indwelling: Yes Reason for continuing: Surgical procedure Progress Note: A&P (1) Degenerative joint disease of left hip Status: Acute Current Visit: Yes (2) Diabetes Status: Acute Current Visit: Yes (3) CAD (coronary artery disease) Status: Chronic Current Visit: No (4) DDD (degenerative disc disease), lumbar Status: Chronic Current Visit: No (5) HTN (hypertension) Status: Chronic Current Visit: No Assessment and Plan for All Diagnoses:: 59yo F POD 0 s/p L ADELFO -- d/c membreno -- transfuse 2 units PRBC today and recheck H/H this afternoon -- medical co-management w/Drs. Horan/Nicole -- pain management: oral/IV (percocet/dilaudid) -- DVT prophy: lovenox to start today x 2 weeks, then aspirin x 1 month -- finish 24 hr prophy antibiotics -- WBAT LLE -- PT/OT to eval -- posterior hip precautions, abduction pillow while in bed -- first dressing change 10/01/2019; do not remove, reinforce and notify MD of drainage -- ice pack L hip -- dispo: The initial plan was to discharge the patient home, however she would like to go to a SNF if possible. We were initially told that SNFs were not taking new patients due to the public health concerns of the moment, but it appears that she will be accepted at [facility] for discharge tomorrow; I am fine with this, if she is accepted. If not, she may discharge home but will need a hospital bed at home.
--- NOTE | 2019-09-30 09:42 | Consult Report ---
*Admission Date: 09/29/19 *Reason for consult:: Internal medicine consultation *History of present illness: 59-year-old female with severe DJD L hip with chronic pain. She saw me 08/16/2019 for the first time and reports several years of hip pain, worsening over the preceding month. She also has longstanding issues with her lumbar spine; s/[place] L3- L5 [place] [address] Friedman. She has chronic radiculopathy and is in pain management; she has both an implanted neural stimulator and intrathecal pain pump. Surgery was planned on the hip (ADELFO) and she received clearance from her PCP, infrastructure technician, dentist and neurosurgeon. At her pre-op visit with me on 09/11/2019 she reported a sudden, severe increase in pain the day prior, having experienced a pop in the hip while walking in her kitchen. Since that day she has been unable to walk more than a few feet, and just bearing weight has been very painful. XR 09/10/2019 revealed further collapse of the femoral head; I estimated this to be roughly 20-25% collapse. The acetabulum was noted to be dysplastic as well, with multiple subcortical cystic lesions and a thin medial wall. Her ADELFO was initially scheduled for 09/14/2019 but cancelled due to the patient developing gastroenteritis with diarrhea. She was treated by her PCP for this and recovered in a few days with no lingering symptoms; afebrile throughout. Surgery was rescheduled for 09/21/2019 but cancelled due to the outbreak of coronavirus in our [place], causing multiple staff to become quarantined. As of 09/28/2019, there are were patients admitted to our hospital with suspicion of covid-19, no staff members that are symptomatic, and sufficient staff have been released from quarantine to fully staff our OR. In my eyes I view this as an urgent procedure, as her femoral head is actively collapsing and she is nearly totally disabled. She has been off of her aspirin since 09/10/2019. She initially took her Bactroban for 5 days prior to surgery but when it was canceled did not restart it. I added vancomycin to her perioperative antibiotic plan in lieu of completing Bactroban. Repeat labs were drawn last night and with the exception of mild anemia (Hgb 10.6) they were within normal limits. Surgery was performed today without intra-operative complication, though there was significant EBL of 1400cc. This was replenished intra-operatively with 2 units PRBCs. The acetabulum was dysplastic and curettage/grafting of subcortical cysts + addition of a [place] mesh was required, followed by a [place] MCM cup with additional wedge augment; ceramic femoral head used. 3L crystalloid given intra-op (normal saline); UOP was 800cc during case. Hemodynamically stable throughout the case. Past medical history is significant for CHF, DM, GERD, asthma, CAD, migraines, HTN, and anxiety/depression. Allergies reported to keflex, morphine, PCN and adhesive tape. Home medications include aspirin, carvedilol, vit C/D, arthrotec, duloxetine, iron, gabapentin. She lives in a multi-story home with her and 4 children. She uses a walker at baseline. Her intrathecal pain pump was last refilled with dilaudid on 09/08/2019. Above note per orthopedics. I have reviewed history, discussed case with deion haley and reviewed intraoperative notes and postoperative anesthesia notes. [facility] History I have reviewed the patient's past medical history: Yes Medical History: Reports:: Anxiety, Arrhythmia, Asthma, Coronary Artery Disease, Depression, Diabetes Mellitus Type 2, Gastroesophageal Reflux Disease(GERD), Hypertension, Migraine, Palpitations Denies:: Aneurysm, Atrial Fibrillation, Cancer, Chronic Obstructive Pulmonary Disease (COPD), Cerebrovascular Accident, Deep Vein Thrombosis, Diabetes Mellitus Type 1, Gastrointestinal Bleed, Hyperlipidemia, Internal Pacemaker, Kidney Stones, MRSA, Myocardial Infarction, Osteoporosis, Peripheral Artery Disease, Pulmonary Embolism, Renal Disease, Seizures, Supraventricular Tachycardia, Transient Ischemic Attacks (TIA), Valvular Heart Disease Comment Only: Congestive Heart Failure (diastolic dysfunction) *Have you ever received a pneumonia vaccine?: Yes *Have you received a flu vaccine this season?: Yes Other Medical History: Reports: Anemia, Arthritis, Cataracts, Fibromyalgia, Sinus Problems. Denies: Blood Transfusion Reaction, Chemotherapy, Glaucoma, Acquired Immunodeficiency Syndrome (AIDS), HIV, Hoarseness, Hormone Therapy, Hypothyroidism, Liver Disease, Osteoporosis, Radiation Therapy, Sickle Cell Dis ease, Thyroid Disease, Unexplained Bleeding Anesthesia experience/problems:: none Laterality Cases: Left: Breast Biopsy, Total Hip Replacement, Right: Arthroscopy Knee, Bilateral: Tonsillectomy, Other Other Surgeries: Yes: Appendectomy, Bariatric Surgery, Cardiac Catheterization, Cholecystectomy, Colonoscopy, Dilation and Curettage, EGD, Hysterectomy-Total, Other (spinal stimulator, pain pump). No: Pacemaker Amputation: No Fractures: No - *Social History Educational Level: Completed College Smoking Status: Never smoker Tobacco Type: cigarettes # Packs/Day (cigarettes): 0 #Yrs smoked (if former smoker): 0 Alcohol Intake: never Alcohol Intake Frequency:: 0-2 drinks per day Substance Use Type: denies use *Occupational Status:: retired Housing: house Household Members: spouse *Travel in the last 8 weeks: None - Psychiatric History Pschychiatric History:: Reports:: Anxiety, Depression Family Hx:: Cancer, Coronary Artery Disease, Diabetes, Hypertension Review of Systems - Review of Systems Review of systems:: pertinent systems reviewed and negative unless documented below Meds Home Medications Medication Instructions Recorded Confirmed Type ascorbic acid (vitamin C) 500 mg 500 mg PO DAILY 07/16/17 09/30/19 History tablet aspirin 81 mg tablet,delayed 81 mg PO DAILY 07/16/17 09/30/19 History release carvedilol 12.5 mg tablet 12.5 mg PO BID 07/16/17 09/29/19 History cholecalciferol (vitamin D3) 10 400 unit PO DAILY 07/16/17 09/30/19 History mcg (400 unit) capsule diclofenac 75 mg-misoprostol 200 1 tab PO BID 07/16/17 09/29/19 History mcg tablet,immediate,delayed release montelukast 10 mg tablet 10 mg PO HS 07/16/17 09/30/19 History ibuprofen 800 mg tablet 800 mg PO BID PRN tab 09/22/17 09/29/19 History duloxetine 60 mg capsule,delayed 60 mg PO BID 03/27/18 09/30/19 History release tramadol 50 mg tablet 50 mg PO TIDP PRN 03/27/18 09/30/19 History zolpidem 10 mg tablet 10 mg PO HS tab 08/25/19 09/30/19 History mupirocin 2 % topical ointment 1 applic TOPICAL BID #15 g 09/10/19 09/29/19 Rx Gabapentin 800 mg PO QID 09/30/19 09/30/19 History Hydrocodone/Acetaminophen 1 each PO QIDP PRN 09/30/19 09/30/19 History [Hydrocodone-Acetamin 5-325 mg] Iron,Carbonyl [Feosol] 45 mg PO DAILY 09/30/19 09/30/19 History LORazepam [Lorazepam] 1 mg PO TIDP PRN 09/30/19 09/30/19 History OXcarbazepine [Oxcarbazepine] 300 mg PO BID 09/30/19 09/30/19 History Potassium Chloride [Klor-con 20 20 meq PO DAILY 09/30/19 09/30/19 History mEq tablet] Spironolactone [Spironolactone 25 mg PO DAILY 09/30/19 09/30/19 History 25mg Tablet] Triamterene/Hydrochlorothiazid 1 each PO DAILY 09/30/19 09/30/19 History [Maxzide 37.5 mg-25 mg Tablet] lamoTRIgine [Lamotrigine] 200 mg PO BID 09/30/19 09/30/19 History raNITIdine HCL [Ranitidine HCl] 150 mg PO BID 09/30/19 09/30/19 History Allergies Allergy/AdvReac Type Severity Reaction Status Date / Time cephalexin [From Keflex] Allergy Severe "SERUM Verified 09/13/19 15:53 SICKNESS"; JOINTS LOCKED morphine Allergy Intermediate I-HIVES Verified 09/13/19 15:53 Penicillins Allergy Intermediate I-HIVES Verified 09/13/19 15:53 adhesive tape AdvReac Verified 09/13/19 15:53 Exam Vital signs and Labs for Last 24 Hours: Temp Pulse Resp BP Pulse Ox 98.3 F 100 H 16 102/57 L 100 09/30/19 08:00 09/30/19 08:00 09/30/19 08:00 09/30/19 08:00 09/30/19 08:00 Laboratory Results - last 24 hr 09/28/19 18:50: Crossmatch (AHG) See Detail 09/28/19 18:52: Crossmatch (AHG) See Detail 09/29/19 19:00: Hgb 9.5 L, Hct 28.5 L 09/29/19 21:25: Urine Color Yellow, Urine Appearance Clear, Urine pH 5.5, Ur Specific [place] 1.025, Urine Protein Negative, Urine Glucose (UA) Negative, Urine Ketones Negative, Urine Blood Negative, Urine Nitrate Negative, Urine Bilirubin Negative, Urine Urobilinogen 1.0, Ur Leukocyte Esterase Negative, Urine WBC Occasional, Ur Squamous Epith Cells Occasional, Urine Bacteria Trace 09/30/19 05:30: WBC 7.5, RBC 2.27 L D, Hgb 6.7 L* D, Hct 20.5 L*, MCV 90.1, MCH 29.4, MCHC 32.6, RDW 13.4, Plt Count 218 D, MPV 7.9, Neut % (Auto) 83.9 H, Lymph % (Auto) 8.8 L, [place] % (Auto) 6.5, Eos % (Auto) 0.6, Baso % (Auto) 0.2, Neut # (Auto) 6.3, Lymph # (Auto) 0.7, [place] # (Auto) 0.5, Eos # (Auto) 0.0, Baso # (Auto) 0.0 09/30/19 05:30: Sodium 132 L, Potassium 3.4 L, Chloride 103, Carbon Dioxide 23 D, Anion Gap 9.4, BUN 17, Creatinine 0.60, Estimated Creat Clear 152, Estimated GFR 102, Est GFR ( Amer) 124, Glucose 221 H, Calcium 7.5 L D 09/30/19 07:48: Hgb 6.7 L*, Hct 20.8 L* I & O for Last 24 hours: Intake & Output 09/27/19 09/28/19 09/29/19 09/30/19 11:59 11:59 11:59 11:59 Intake Total 3100 / 3100 Output Total 1200 / 1200 Balance 1900 / 1900 Weight 169 lb 210 lb 3 oz Narrative: Patient is pleasant, talkative, oriented x3. Lungs are clear in the anterior mark. Heart rate regular with soft holosystolic murmur-patient has been told she has a murmur before. No edema noted. Postoperative dressings intact. Neurologically intact. Internal Medicine - CN: Reslt - Labs CBC & Chem 7: 09/30/19 07:48 09/30/19 05:30 Labs: Short CBC 09/29/19 09/30/19 09/30/19 Range/Units 19:00 05:30 07:48 WBC 7.5 (4.8-10.8) K/mm3 Hgb 9.5 L 6.7 L* D 6.7 L* (12.2-16.2) g/dL Hct 28.5 L 20.5 L* 20.8 L* (37.0-47.0) % Plt Count 218 D (142-424) K/mm3 BMP 09/30/19 05:30 Sodium 132 L Potassium 3.4 L Chloride 103 Carbon Dioxide 23 D BUN 17 Creatinine 0.60 Glucose 221 H Calcium 7.5 L D Urine 09/29/19 Range/Units 21:25 Urine Color Yellow (Yellow) Urine Appearance Clear (Clear) Urine pH 5.5 (5.0-8.5) Ur Specific [place] 1.025 (1.005-1.030) Urine Protein Negative (Negative) Urine Glucose (UA) Negative (Negative) Assessment and Plan (1) Degenerative joint disease of left hip Current visit: Yes Status: Acute Category: Medical Code(s): M16.12 - Unilateral primary osteoarthritis, left hip (2) Diabetes Current visit: Yes Status: Acute Category: Medical Code(s): E11.9 - Type 2 diabetes mellitus without complications (3) CAD (coronary artery disease) Current visit: No Status: Chronic Qualifiers: Coronary Disease-Associated Artery/Lesion type: [place] artery [place] vs. transplanted heart: [place] heart Associated angina: without angina Qualified Code(s): I25.10 - Atherosclerotic heart disease of [place] coronary artery without angina pectoris Category: Medical Code(s): I25.10 - Atherosclerotic heart disease of [place] coronary artery without angina pectoris (4) DDD (degenerative disc disease), lumbar Current visit: No Status: Chronic Category: Medical Code(s): M51.36 - Other intervertebral disc degeneration, lumbar region (5) HTN (hypertension) Current visit: No Status: Chronic Qualifiers: Hypertension type: essential hypertension Qualified Code(s): I10 - Essential (primary) hypertension Category: Medical Code(s): I10 - Essential (primary) hypertension - Assessment and plan all Dx Assessment and Plan for all problems:: Patient is tolerated operation very nicely. Agree with transfusion today. Continue current medications. I have emphasized to patient the importance of incentive spirometry, cooperating with physical therapy to enhance prospects for discharge tomorrow. Our care management team is on the case about transferring to skilled care tomorrow for a good outcome.
--- NOTE | 2019-09-30 10:04 | Emergency Department Note ---
Medical Decision Making Vital Signs: 09/29/19 07:35 09/29/19 14:30 09/29/19 16:00 Temperature 99.8 F H 97.6 F Temperature Source Temporal Artery Scan Temporal Artery Scan Pulse Rate Pulse Rate [Left Brachial] 65 Pulse Rate [Right Brachial] 82 Respiratory Rate 18 12 14 Blood Pressure Blood Pressure [Right Arm] 125/65 96/56 L Blood Pressure Mean [Right Arm] 85 69 Blood Pressure Source [Right Arm] Automatic Cuff Automatic Cuff Blood Pressure Position [Right Arm] Supine Supine 02 Sat by Pulse Oximetry 95 94 L Oxygen Delivery Method Room Air Room Air 09/29/19 16:10 09/29/19 16:20 09/29/19 16:30 Temperature 97.6 F 97.6 F 97.6 F Temperature Source Temporal Artery Scan Temporal Artery Scan Temporal Artery Scan Pulse Rate Pulse Rate [Left Brachial] 72 71 91 H Pulse Rate [Right Brachial] Respiratory Rate 16 22 22 Blood Pressure Blood Pressure [Right Arm] 99/57 L 105/62 L 136/71 Blood Pressure Mean [Right Arm] 71 76 92 Blood Pressure Source [Right Arm] Automatic Cuff Automatic Cuff Automatic Cuff Blood Pressure Position [Right Arm] Supine Supine Supine 02 Sat by Pulse Oximetry 96 94 L 99 Oxygen Delivery Method Room Air Room Air Room Air 09/29/19 16:40 09/29/19 16:50 09/29/19 17:00 Temperature 97.6 F 97.6 F 97.6 F Temperature Source Temporal Artery Scan Temporal Artery Scan Temporal Artery Scan Pulse Rate Pulse Rate [Left Brachial] 100 H 89 91 H Pulse Rate [Right Brachial] Respiratory Rate 20 20 20 Blood Pressure Blood Pressure [Right Arm] 142/71 H 164/77 H 156/79 H Blood Pressure Mean [Right Arm] 94 106 104 Blood Pressure Source [Right Arm] Automatic Cuff Automatic Cuff Automatic Cuff Blood Pressure Position [Right Arm] Supine Supine Supine 02 Sat by Pulse Oximetry 93 L 97 100 Oxygen Delivery Method Room Air Room Air Room Air 09/29/19 17:07 09/29/19 17:10 09/29/19 17:20 Temperature 97.6 F 97.6 F 97.6 F Temperature Source Temporal Artery Scan Temporal Artery Scan Pulse Rate 65 Pulse Rate [Left Brachial] 90 91 H Pulse Rate [Right Brachial] Respiratory Rate 14 18 20 Blood Pressure 96/56 L Blood Pressure [Right Arm] 158/78 H 145/82 H Blood Pressure Mean [Right Arm] 104 103 Blood Pressure Source [Right Arm] Automatic Cuff Automatic Cuff Blood Pressure Position [Right Arm] Supine Supine 02 Sat by Pulse Oximetry 98 100 Oxygen Delivery Method Room Air Room Air 09/29/19 17:30 09/29/19 17:40 09/29/19 17:50 Temperature 97.6 F 97.6 F 97.6 F Temperature Source Temporal Artery Scan Temporal Artery Scan Temporal Artery Scan Pulse Rate Pulse Rate [Left Brachial] 89 87 56 L Pulse Rate [Right Brachial] Respiratory Rate 20 20 20 Blood Pressure Blood Pressure [Right Arm] 164/82 H 174/80 H 182/87 H Blood Pressure Mean [Right Arm] 109 111 118 Blood Pressure Source [Right Arm] Automatic Cuff Automatic Cuff Automatic Cuff Blood Pressure Position [Right Arm] Supine Supine Supine 02 Sat by Pulse Oximetry 89 L 98 100 Oxygen Delivery Method Room Air Room Air Room Air 09/29/19 18:00 09/29/19 18:10 09/29/19 18:20 Temperature 97.6 F 97.6 F 97.6 F Temperature Source Temporal Artery Scan Temporal Artery Scan Temporal Artery Scan Pulse Rate Pulse Rate [Left Brachial] 66 66 92 H Pulse Rate [Right Brachial] Respiratory Rate 20 20 20 Blood Pressure Blood Pressure [Right Arm] 160/59 H 142/71 H 151/67 H Blood Pressure Mean [Right Arm] 92 94 95 Blood Pressure Source [Right Arm] Automatic Cuff Automatic Cuff Automatic Cuff Blood Pressure Position [Right Arm] Supine Supine Supine 02 Sat by Pulse Oximetry 100 89 L 97 Oxygen Delivery Method Room Air Room Air Room Air 09/29/19 18:30 09/29/19 18:40 09/29/19 18:50 Temperature 97.6 F 97.6 F 97.6 F Temperature Source Temporal Artery Scan Temporal Artery Scan Temporal Artery Scan Pulse Rate Pulse Rate [Left Brachial] 91 H 92 H 92 H Pulse Rate [Right Brachial] Respiratory Rate 20 20 20 Blood Pressure Blood Pressure [Right Arm] 150/77 H 140/76 136/71 Blood Pressure Mean [Right Arm] 101 97 92 Blood Pressure Source [Right Arm] Automatic Cuff Automatic Cuff Automatic Cuff Blood Pressure Position [Right Arm] Supine Supine Sitting 02 Sat by Pulse Oximetry 99 100 99 Oxygen Delivery Method Room Air Room Air Room Air 09/29/19 19:00 09/29/19 19:10 09/29/19 19:25 Temperature 97.6 F 97.6 F 98.1 F Temperature Source Temporal Artery Scan Temporal Artery Scan Oral Pulse Rate Pulse Rate [Left Brachial] 91 H 113 H Pulse Rate [Right Brachial] 121 H Respiratory Rate 20 20 20 Blood Pressure Blood Pressure [Right Arm] 126/76 144/97 H 109/65 L Blood Pressure Mean [Right Arm] 92 112 79 Blood Pressure Source [Right Arm] Automatic Cuff Automatic Cuff Automatic Cuff Blood Pressure Position [Right Arm] Sitting Sitting Supine 02 Sat by Pulse Oximetry 98 100 99 Oxygen Delivery Method Room Air Room Air Room Air 09/29/19 19:40 09/29/19 19:55 09/29/19 20:00 Temperature 97.6 F 100.0 F H Temperature Source Axillary Axillary Pulse Rate Pulse Rate [Left Brachial] Pulse Rate [Right Brachial] 119 H 113 H Respiratory Rate 20 18 Blood Pressure Blood Pressure [Right Arm] 99/68 L 102/63 L Blood Pressure Mean [Right Arm] 78 76 Blood Pressure Source [Right Arm] Automatic Cuff Automatic Cuff Blood Pressure Position [Right Arm] Supine Supine 02 Sat by Pulse Oximetry 99 100 Oxygen Delivery Method Room Air Room Air Room Air 09/29/19 20:05 09/29/19 20:25 09/29/19 21:00 Temperature 100.1 F H 100.5 F H Temperature Source Axillary Axillary Pulse Rate Pulse Rate [Left Brachial] Pulse Rate [Right Brachial] 109 H 119 H Respiratory Rate 20 18 Blood Pressure Blood Pressure [Right Arm] 112/83 91/62 L Blood Pressure Mean [Right Arm] 92 71 Blood Pressure Source [Right Arm] Automatic Cuff Automatic Cuff Blood Pressure Position [Right Arm] Supine Supine 02 Sat by Pulse Oximetry 99 100 Oxygen Delivery Method Room Air Room Air Room Air 09/29/19 21:05 09/29/19 21:25 09/29/19 22:05 Temperature 99.4 F 99.2 F 100.5 F H Temperature Source Oral Oral Oral Pulse Rate Pulse Rate [Left Brachial] Pulse Rate [Right Brachial] 115 H 114 H 110 H Respiratory Rate 18 18 20 Blood Pressure Blood Pressure [Right Arm] 100/53 L 90/70 L 101/61 L Blood Pressure Mean [Right Arm] 68 76 74 Blood Pressure Source [Right Arm] Automatic Cuff Automatic Cuff Automatic Cuff Blood Pressure Position [Right Arm] Supine Supine Supine 02 Sat by Pulse Oximetry 98 98 97 Oxygen Delivery Method Room Air Room Air Room Air 09/29/19 23:00 09/29/19 23:05 09/30/19 00:05 Temperature 100.9 F H 98.9 F Temperature Source Oral Oral Pulse Rate Pulse Rate [Left Brachial] Pulse Rate [Right Brachial] 114 H 112 H Respiratory Rate 20 20 Blood Pressure Blood Pressure [Right Arm] 97/70 L 102/79 L Blood Pressure Mean [Right Arm] 79 86 Blood Pressure Source [Right Arm] Automatic Cuff Automatic Cuff Blood Pressure Position [Right Arm] Supine Supine 02 Sat by Pulse Oximetry 94 L 97 Oxygen Delivery Method Room Air Room Air Room Air 09/30/19 01:00 09/30/19 01:05 09/30/19 02:05 Temperature 99.5 F 99.9 F H Temperature Source Oral Oral Pulse Rate Pulse Rate [Left Brachial] Pulse Rate [Right Brachial] 91 H 96 H Respiratory Rate 18 19 Blood Pressure Blood Pressure [Right Arm] 95/53 L 122/55 L Blood Pressure Mean [Right Arm] 67 77 Blood Pressure Source [Right Arm] Automatic Cuff Automatic Cuff Blood Pressure Position [Right Arm] Supine Supine 02 Sat by Pulse Oximetry 98 98 Oxygen Delivery Method Room Air Room Air Room Air 09/30/19 03:00 09/30/19 04:00 09/30/19 05:00 Temperature 100.6 F H Temperature Source Oral Pulse Rate Pulse Rate [Left Brachial] Pulse Rate [Right Brachial] 98 H Respiratory Rate 18 Blood Pressure Blood Pressure [Right Arm] 93/48 L Blood Pressure Mean [Right Arm] 63 Blood Pressure Source [Right Arm] Automatic Cuff Blood Pressure Position [Right Arm] Supine 02 Sat by Pulse Oximetry 96 Oxygen Delivery Method Room Air Room Air Room Air 09/30/19 06:41 09/30/19 07:51 09/30/19 08:00 Temperature 97.1 F L 98.3 F Temperature Source Oral Pulse Rate 113 H Pulse Rate [Left Brachial] Pulse Rate [Right Brachial] 100 H Respiratory Rate 16 Blood Pressure 144/97 H Blood Pressure [Right Arm] 102/57 L Blood Pressure Mean [Right Arm] 72 Blood Pressure Source [Right Arm] Automatic Cuff Blood Pressure Position [Right Arm] Sitting 02 Sat by Pulse Oximetry 100 Oxygen Delivery Method Room Air Room Air - Lab Data Lab Results 09/28/19 18:50: Crossmatch (AHG) See Detail 09/28/19 18:52: Crossmatch (AHG) See Detail 09/29/19 07:51: POC Glucose 86 09/29/19 19:00: Hgb 9.5 L, Hct 28.5 L 09/29/19 21:25: Urine Color Yellow, Urine Appearance Clear, Urine pH 5.5, Ur Specific [place] 1.025, Urine Protein Negative, Urine Glucose (UA) Negative, Urine Ketones Negative, Urine Blood Negative, Urine Nitrate Negative, Urine Bilirubin Negative, Urine Urobilinogen 1.0, Ur Leukocyte Esterase Negative, Urine WBC Occasional, Ur Squamous Epith Cells Occasional, Urine Bacteria Trace 09/30/19 05:30: WBC 7.5, RBC 2.27 L D, Hgb 6.7 L* D, Hct 20.5 L*, MCV 90.1, MCH 29.4, MCHC 32.6, RDW 13.4, Plt Count 218 D, MPV 7.9, Neut % (Auto) 83.9 H, Lymph % (Auto) 8.8 L, [place] % (Auto) 6.5, Eos % (Auto) 0.6, Baso % (Auto) 0.2, Neut # (Auto) 6.3, Lymph # (Auto) 0.7, [place] # (Auto) 0.5, Eos # (Auto) 0.0, Baso # (Auto) 0.0 09/30/19 05:30: Sodium 132 L, Potassium 3.4 L, Chloride 103, Carbon Dioxide 23 D, Anion Gap 9.4, BUN 17, Creatinine 0.60, Estimated Creat Clear 152, Estimated GFR 102, Est GFR ( Amer) 124, Glucose 221 H, Calcium 7.5 L D 09/30/19 07:48: Hgb 6.7 L*, Hct 20.8 L* Result diagrams: 09/30/19 07:48 09/30/19 05:30 Orders (Tests/Meds): ED MEDICATIONS Generic Name Dose Route Start Last Admin Trade Name Freq PRN Reason Stop Dose Admin Acetaminophen 650 mg 09/29/19 17:16 09/30/19 04:42 Acetaminophen 325mg Tab PO 10/29/19 17:15 650 mg Q6HP PRN Administration Mild to Moderate Pain Carvedilol 12.5 mg 09/29/19 21:00 09/30/19 08:22 Coreg 12.5mg Tablet PO 10/29/19 20:59 12.5 mg BID ANDI Administration Docusate Sodium 100 mg 09/29/19 21:00 09/30/19 08:23 Docusate Sodium 100mg Cap PO 10/29/19 20:59 100 mg BID ANDI Administration Duloxetine HCl 60 mg 09/30/19 09:00 09/30/19 08:23 Cymbalta 30mg Capsule PO 10/30/19 08:59 60 mg BID ANDI Administration Enoxaparin Sodium 40 mg 09/30/19 09:00 09/30/19 08:23 Lovenox 40mg/0.4ml Syringe SQ 10/14/19 08:59 40 mg DAILY ANDI Administration Gabapentin 800 mg 09/30/19 09:00 09/30/19 08:23 Neurontin 400mg Capsule PO 10/30/19 08:59 800 mg DAILY ANDI Administration Hydromorphone HCl 0.5 mg 09/29/19 17:32 09/30/19 08:19 Dilaudid 2mg/Ml Syringe IV 10/29/19 17:31 0.5 mg Q2HP PRN Administration Severe Pain Sodium Chloride 1,000 mls @ 75 mls/hr 09/29/19 17:30 09/29/19 19:50 Sod Chlor 0.9% 1000ml Bag IV 10/29/19 17:29 75 mls/hr .[id number] ANDI Administration Vancomycin HCl 1,250 mg/ 250 mls @ 125 mls/hr 09/29/19 21:00 09/29/19 22:16 Sodium Chloride IV 09/30/19 10:59 125 mls/hr Q12H ANDI Administration Sodium Chloride 250 mls @ 25 mls/hr 09/30/19 08:30 Sod Chlor 0.9% 250ml Bag IV 10/01/19 08:29 .Q10H ANDI Lamotrigine 200 mg 09/30/19 09:00 09/30/19 08:24 Lamictal 100mg Tablet PO 10/30/19 08:59 200 mg BID ANDI Administration Montelukast Sodium 10 mg 09/29/19 21:00 09/29/19 20:46 Singulair 10mg Tablet PO 10/29/19 20:59 10 mg HS ANDI Administration Ondansetron HCl 4 mg 09/30/19 00:29 Zofran 4mg/2ml Vial IV 10/30/19 00:28 Q6HP PRN NV Oxcarbazepine 300 mg 09/29/19 21:00 09/30/19 08:24 Trileptal 300mg Tablet PO 10/29/19 20:59 300 mg BID ANDI Administration Oxycodone/Acetaminophen 1 each 09/29/19 17:32 09/30/19 07:36 Percocet 5/325mg Tablet PO 10/29/19 17:31 1 each Q6HP PRN Administration Moderate to Severe Pain Polyethylene Glycol 17 gm 09/29/19 17:16 Miralax 17gm Packet PO 10/29/19 17:15 DAILYP PRN Constipation Sodium Chloride 10 ml 09/29/19 17:16 Saline Flush 10ml Syringe IV 10/29/19 17:15 NEEDED PRN Maintain IV Site Triamterene/HCTZ 1 each 09/30/19 09:00 09/30/19 08:25 Maxzide-25 Tablet PO 10/30/19 08:59 1 each DAILY ANDI Administration Discontinued Medications Generic Name Dose Route Start Last Admin Trade Name Freq PRN Reason Stop Dose Admin Sodium Chloride 1,000 mls @ 25 mls/hr 09/29/19 08:30 09/29/19 07:27 Sod Chlor 0.9% 1000ml Bag IV 09/30/19 09:29 25 mls/hr .Q25H ONE Administration Clindamycin Phosphate 900 mg/ 106 mls @ 106 mls/hr 09/29/19 08:30 09/29/19 09:35 Sodium Chloride IV 09/29/19 09:29 106 mls/hr PREOP ONE Administration Vancomycin HCl 1,500 mg/ 250 mls @ 125 mls/hr 09/29/19 08:30 09/29/19 08:28 Sodium Chloride IV 09/29/19 10:29 125 mls/hr ONCE ONE Administration Tranexamic Acid 710 mg/ Sodium 257.1 mls @ 514.2 mls/hr 09/29/19 08:30 0 09/29/19 13:45 Chloride IV 09/29/19 11:59 514.2 mls/hr Q3H ANDI Administration Bupivacaine HCl 200 mg/ 120 mls @ 120 mls/hr 09/29/19 08:30 09/29/19 14:30 Epinephrine HCl 0.6 mg/ IJ 09/29/19 09:29 120 mls/hr Ketorolac Tromethamine 30 mg/ ONCE ONE Administration Sodium Chloride Clindamycin Phosphate 900 mg/ 106 mls @ 106 mls/hr 09/29/19 19:30 09/30/19 08:22 Sodium Chloride IV 09/30/19 08:29 106 mls/hr Q6H ANDI Administration Protocol Miscellaneous 1 each 09/29/19 17:45 Vancomycin Consult Request * 09/30/19 17:44 CONSULT PHARMACY ANDI Non-Formulary Medication 30 mg 09/29/19 17:45 Duloxetine Hcl [Cymbalta] PO 10/29/19 17:44 QDAY ANDI Non-Formulary Medication 60 mg 09/30/19 09:00 Duloxetine Hcl PO 10/30/19 08:59 DAILY ANDI Non-Formulary Medication 200 mg 09/29/19 17:45 Lamotrigine [Lamotrigine Er] PO 10/29/19 17:44 QDAY ANDI ORDERS Category Date Time Status Red Blood Cells Routine BBK 09/28/19 18:50 Received Red Blood Cells Routine BBK 09/28/19 18:52 Results Consult to Case Management [CONS] Routine Cons 09/29/19 17:17 Active Consult to Physician [CONS] Routine Cons 09/29/19 17:17 Ordered Basic Metabolic Panel DAILY Lab 10/01/19 06:00 Ordered Complete Blood Count Auto Diff DAILY Lab 10/01/19 06:00 Ordered [facility] History - Hepatitis A Screen Attestation statement:: This patient has been screened for Hepatitis A risk factors. Medical History: Reports:: Anxiety, Arrhythmia, Asthma, Coronary Artery Disease, Depression, Diabetes Mellitus Type 2, Gastroesophageal Reflux Disease(GERD), Hypertension, Migraine, Palpitations Denies:: Aneurysm, Atrial Fibrillation, Cancer, Chronic Obstructive Pulmonary Disease (COPD), Cerebrovascular Accident, Deep Vein Thrombosis, Diabetes Mellitus Type 1, Gastrointestinal Bleed, Hyperlipidemia, Internal Pacemaker, Kidney Stones, MRSA, Myocardial Infarction, Osteoporosis, Peripheral Artery Dis ease, Pulmonary Embolism, Renal Disease, Seizures, Supraventricular Tachycardia, Transient Ischemic Attacks (TIA), Valvular Heart Disease Comment Only: Congestive Heart Failure (diastolic dysfunction) Other Medical History: Reports: Anemia, Arthritis, Cataracts, Fibromyalgia, Sinus Problems. Denies: Blood Transfusion Reaction, Chemotherapy, Glaucoma, Acquired Immunodeficiency Syndrome (AIDS), HIV, Hoarseness, Hormone Therapy, Hypothyroidism, Liver Disease, Osteoporosis, Radiation Therapy, Sickle Cell Disease, Thyroid Disease, Unexplained Bleeding Comment: Illnesses-chronic back pain secondary to DDD lumbar spine with radiculopathy and postlaminectomy syndrome, GERD, arthritis, migraine headaches, anxiety and depression, history of skin cancers, heart murmur, hypertension Laterality Cases: Left: Breast Biopsy, Total Hip Replacement, Right: Arthroscopy Knee, Bilateral: Tonsillectomy, Other Other Surgeries: Yes: Appendectomy, Bariatric Surgery, Cardiac Catheterization, Cholecystectomy, Colonoscopy, Dilation and Curettage, EGD, Hysterectomy-Total, Other (spinal stimulator, pain pump). No: Pacemaker Amputation: No Fractures: No Comment: lap марина. Stimulator in back - Social History Educational Level: Completed College Smoking Status: Never smoker Tobacco Type: cigarettes # Packs/Day (cigarettes): 0 #Yrs smoked (if former smoker): 0 Alcohol Intake: never Alcohol Intake Frequency:: 0-2 drinks per day Substance Use Type: denies use Occupational Status: retired Housing: house Household Members: spouse Comment: Operations-ear surgery 3, cholecystectomy, hysterectomy, knee arthroscopy, lumbar discectomy, gastric bypass, excision of skin cancers of the nose, toe surgery, knee arthroscopy, intrathecal pain pump placement 2016 - Psychiatric History Pschychiatric History:: Reports:: Anxiety, Depression Family Hx:: Cancer, Coronary Artery Disease, Diabetes, Hypertension [facility] Cough Clinic HPI - Related Data Home Medications Medication Instructions Recorded Confirmed ascorbic acid (vitamin C) 500 mg 500 mg PO DAILY 07/16/17 09/30/19 tablet aspirin 81 mg tablet,delayed 81 mg PO DAILY 07/16/17 09/30/19 release carvedilol 12.5 mg tablet 12.5 mg PO BID 07/16/17 09/29/19 cholecalciferol (vitamin D3) 10 400 unit PO DAILY 07/16/17 09/30/19 mcg (400 unit) capsule diclofenac 75 mg-misoprostol 200 1 tab PO BID 07/16/17 09/29/19 mcg tablet,immediate,delayed release montelukast 10 mg tablet 10 mg PO HS 07/16/17 09/30/19 ibuprofen 800 mg tablet 800 mg PO BID PRN tab 09/22/17 09/29/19 duloxetine 60 mg capsule,delayed 60 mg PO BID 03/27/18 09/30/19 release tramadol 50 mg tablet 50 mg PO TIDP PRN 03/27/18 09/30/19 zolpidem 10 mg tablet 10 mg PO HS tab 08/25/19 09/30/19 Gabapentin 800 mg PO QID 09/30/19 09/30/19 Hydrocodone/Acetaminophen 1 each PO QIDP PRN 09/30/19 09/30/19 [Hydrocodone-Acetamin 5-325 mg] Iron,Carbonyl [Feosol] 45 mg PO DAILY 09/30/19 09/30/19 LORazepam [Lorazepam] 1 mg PO TIDP PRN 09/30/19 09/30/19 OXcarbazepine [Oxcarbazepine] 300 mg PO BID 09/30/19 09/30/19 Potassium Chloride [Klor-con 20 20 meq PO DAILY 09/30/19 09/30/19 mEq tablet] Spironolactone [Spironolactone 25 mg PO DAILY 09/30/19 09/30/19 25mg Tablet] Triamterene/Hydrochlorothiazid 1 each PO DAILY 09/30/19 09/30/19 [Maxzide 37.5 mg-25 mg Tablet] lamoTRIgine [Lamotrigine] 200 mg PO BID 09/30/19 09/30/19 raNITIdine HCL [Ranitidine HCl] 150 mg PO BID 09/30/19 09/30/19 Previous Rx's Medication Instructions Recorded mupirocin 2 % topical ointment 1 applic TOPICAL BID #15 g 09/10/19 Allergies Allergy/AdvReac Type Severity Reaction Status Date / Time cephalexin [From Keflex] Allergy Severe "SERUM Verified 09/13/19 15:53 SICKNESS"; JOINTS LOCKED morphine Allergy Intermediate I-HIVES Verified 09/13/19 15:53 Penicillins Allergy Intermediate I-HIVES Verified 09/13/19 15:53 adhesive tape AdvReac Verified 09/13/19 15:53
[2019-09-30 16:40] LABS: Hematocrit 25.1 % (37.0-47.0)
[2019-09-30 16:53] LABS: Hemoglobin 8.7 g/dL (12.2-16.2)
[2019-10-01 06:52] LABS: Basophils % 0.1 % (0.1-2.0); Eosinophils # 0.1 K/mm3 (0.0-0.4); Eosinophils % 0.9 % (0.1-12.0); Lymphocytes # 1.4 K/mm3 (0.7-4.5); Lymphocytes % 11.7 % (10-50); Mean Corpuscular HGB Conc 33.3 g/dL (31.8-35.4); Mean Corpuscular Volume 89.1 fl (81-99); Mean Platelet Volume 7.9 fl (7.4-10.4); Monocytes # 0.8 K/mm3 (0.1-1.0); Monocytes % 6.8 % (1.7-9.3); Neutrophils # 9.5 K/mm3 (1.8-7.8); Neutrophils % 80.5 % (37.0-80.0); Platelet Count 218 K/mm3 (142-424); Red Cell Distribution Width 15.1 % (11.5-17.5); White Blood Count 11.8 K/mm3 (4.8-10.8)
[2019-10-01 07:14] LABS: Hematocrit 23.2 % (37.0-47.0); Hemoglobin 7.7 g/dL (12.2-16.2)
[2019-10-01 07:25] LABS: Calcium 7.7 mg/dl (8.4-10.2)
--- NOTE | 2019-10-01 07:36 | Progress Note ---
Internal Medicine - PN: Subj *Date: 10/01/19 *Time: 07:33 Interval history: Internal medicine follow-up consult note: Patient did well overnight. She had a good session with physical therapy. Exam Vital signs and Labs for Last 24 Hours: Temp Pulse Resp BP Pulse Ox 98.0 F 78 18 103/52 L 98 10/01/19 04:23 10/01/19 04:23 10/01/19 04:23 10/01/19 04:23 10/01/19 04:23 Laboratory Results - last 24 hr 09/28/19 18:50: Crossmatch (AHG) See Detail 09/28/19 18:52: Crossmatch (AHG) See Detail 09/30/19 07:48: Hgb 6.7 L*, Hct 20.8 L* 09/30/19 16:30: Hgb 8.7 L D, Hct 25.1 L 10/01/19 05:55: WBC 11.8 H D, RBC 2.60 L, Hgb 7.7 L*, Hct 23.2 L*, MCV 89.1, MCH 29.7, MCHC 33.3, RDW 15.1, Plt Count 218, MPV 7.9, Neut % (Auto) 80.5 H, Lymph % (Auto) 11.7, [place] % (Auto) 6.8, Eos % (Auto) 0.9, Baso % (Auto) 0.1, Neut # (Auto) 9.5 H, Lymph # (Auto) 1.4, [place] # (Auto) 0.8, Eos # (Auto) 0.1, Baso # (Auto) 0.0 10/01/19 05:55: Sodium 133 L, Potassium 3.0 L, Chloride 100, Carbon Dioxide 29 D, Anion Gap 7.0, BUN 12 D, Creatinine 0.60, Estimated Creat Clear 160, Estimated GFR 102, Est GFR ( Amer) 124, Glucose 119 H, Calcium 7.7 L I & O for Last 24 hours: Intake & Output 09/28/19 09/29/19 09/30/19 10/01/19 11:59 11:59 11:59 11:59 Intake Total 3100 / 3100 1840 / 1840 Output Total 1200 / 1200 1750 / 1750 Balance 1900 / 1900 90 / 90 Weight 169 lb 210 lb 3 oz 222 lb Narrative: Patient is awake. Alert. Pleasant. Sitting up in a chair. Excellent lung entry of air, no wheezing or rhonchi. Heart rate regular. Surgical site bandage in place. Clear and dry. No peripheral edema in the unaffected leg. Neurologically intact. Does appear pale. Assessment and Plan (1) Degenerative joint disease of left hip Current visit: Yes Status: Acute Category: Medical Code(s): M16.12 - Unilateral primary osteoarthritis, left hip (2) Diabetes Current visit: Yes Status: Acute Category: Medical Code(s): E11.9 - Type 2 diabetes mellitus without complications (3) CAD (coronary artery disease) Current visit: No Status: Chronic Qualifiers: Coronary Disease-Associated Artery/Lesion type: ione artery [place] vs. transplanted heart: ione heart Associated angina: without angina Qualified Code(s): I25.10 - Atherosclerotic heart disease of [place] coronary artery without angina pectoris Category: Medical Code(s): I25.10 - Atherosclerotic heart disease of [place] coronary artery without angina pectoris (4) DDD (degenerative disc disease), lumbar Current visit: No Status: Chronic Category: Medical Code(s): M51.36 - Other intervertebral disc degeneration, lumbar region (5) HTN (hypertension) Current visit: No Status: Chronic Qualifiers: Hypertension type: essential hypertension Qualified Code(s): I10 - Essential (primary) hypertension Category: Medical Code(s): I10 - Essential (primary) hypertension (6) Acute postoperative anemia due to expected blood loss Current visit: Yes Status: Acute Category: Medical Code(s): D62 - Acute posthemorrhagic anemia - Assessment and plan all Dx Assessment and Plan for all problems:: Patient's hemoglobin has gone down to 7.7 g this morning. Given her otherwise tenuous medical status we will transfuse 1 unit, and plan for discharge tomorrow if hemoglobin stable at that point. I strongly believe patient would benefit from skilled care transfer however home may have to be an option depending on insurance status and bed availability. Patient is prepared to go home but I feel she would have a better outcome if able to do rehab at skilled care.
--- NOTE | 2019-10-01 13:41 | Progress Note ---
Subjective Date: 10/01/19 Time: 12:00 Principal diagnosis: s/p L ADELFO Interval history: The patient is doing well this morning. Hemoglobin dropped again overnight to 7.7, received 1 unit PRBCs this morning. We have stopped her Dilaudid and increased her Percocet to 10 mg. She denies fevers or chills, no chest pain or shortness of breath, no abdominal pain, no nausea/vomiting, no diarrhea or dysuria. Her central line dressing was changed this morning and catheter site remains clean dry and intact. The pain in her hip is tolerable and she is progressing with physical therapy; she was able to walk to the door this morning and sat in a chair for a while. No drainage reported from the dressings. PN: Obj Ex Vital signs: Temp Pulse Resp BP Pulse Ox 98.9 F 71 16 97/55 L 92 L 10/01/19 10:45 10/01/19 10:45 10/01/19 10:45 10/01/19 10:45 10/01/19 10:45 - Constitutional no acute distress - Routine HEENT Exam Head: Present: normocephalic Eye: Present: EOMI ENT: Present: mucous membranes moist - Routine Respiratory Exam Absent: respiratory distress, wheezes - Routine Cardiovascular Exam Present: RRR - Routine Abdominal Exam Present: soft. Absent: tenderness - Routine Extremities Exam Comments: hip abduction pillow in place dressing L hip c/d/i --> outer dressing removed, inner silverlon dressing left intact, no strikethrough +DF/PF/EHL LLE palpable pedal pulses L foot; foot warm, BCR SILT distally LLE in all distributions - Routine Skin Exam Present: warm. Absent: ecchymosis - Routine Neurological Exam Present: alert, oriented X3, moving all extremities, normal tone, hearing grossly intact, normal speech. Absent: sensory deficit, motor deficit, altered mental status - Routine Psychiatric Exam Present: normal affect - Urinary Catheter Management Soria Cath placed during this visit: no Urethral indwelling: No Progress Note: A&P (1) Degenerative joint disease of left hip Status: Acute Current Visit: Yes (2) Diabetes Status: Acute Current Visit: Yes (3) CAD (coronary artery disease) Status: Chronic Current Visit: No (4) DDD (degenerative disc disease), lumbar Status: Chronic Current Visit: No (5) HTN (hypertension) Status: Chronic Current Visit: No (6) Acute postoperative anemia due to expected blood loss Status: Acute Current Visit: Yes Assessment and Plan for All Diagnoses:: 59yo F POD 2 s/p L ADELFO -- repeat H/H due this afternoon; anticipate needing 1 more unit this afternoon/evening -- medical co-management w/Drs. Horan/Nicole -- pain management: percocet 10/325 mg q4-6 hours PRN -- DVT prophy: lovenox x 2 weeks, then aspirin x 1 month -- WBAT LLE -- PT/OT to continue while admitted -- posterior hip precautions, abduction pillow while in bed -- plan on dressing change tomorrow -- ice pack L hip -- dispo: denied by SNF yesterday, accepted today. If Hgb appropriate tomorrow and patient doing well, will plan on discharge to [place] tomorrow.
[2019-10-01 18:28] LABS: Hematocrit 28.5 % (37.0-47.0)
[2019-10-01 18:33] LABS: Hemoglobin 9.4 g/dL (12.2-16.2)
[2019-10-02 06:57] LABS: Basophils % 0.2 % (0.1-2.0); Eosinophils # 0.2 K/mm3 (0.0-0.4); Eosinophils % 2.1 % (0.1-12.0); Hematocrit 25.7 % (37.0-47.0); Hemoglobin 8.5 g/dL (12.2-16.2); Lymphocytes # 1.4 K/mm3 (0.7-4.5); Lymphocytes % 14.8 % (10-50); Mean Corpuscular HGB Conc 33.2 g/dL (31.8-35.4); Mean Corpuscular Volume 89.3 fl (81-99); Mean Platelet Volume 7.7 fl (7.4-10.4); Monocytes # 0.5 K/mm3 (0.1-1.0); Monocytes % 5.5 % (1.7-9.3); Neutrophils # 7.5 K/mm3 (1.8-7.8); Neutrophils % 77.4 % (37.0-80.0); Platelet Count 210 K/mm3 (142-424); Red Blood Count 2.88 M/mm3 (4.20-5.40); Red Cell Distribution Width 14.8 % (11.5-17.5); White Blood Count 9.6 K/mm3 (4.8-10.8)
--- NOTE | 2019-10-02 09:33 | Progress Note ---
Internal Medicine - PN: Subj *Date: 10/02/19 *Time: 08:45 Interval history: Patient did well overnight. Remains afebrile hemodynamically stable. Blood pressure little softer this morning however patient is asymptomatic and she is not frankly hypotensive. Denies nausea, vomiting, diarrhea. Has not had a bowel movement since surgery but is passing flatus. Has been working well with physical therapy and is looking forward to getting to the assisted for continued rehab. Reviewed labs this morning, blood levels down slightly from yesterday however still appropriate and not in need of transfusion. Patient sitting in bedside chair on exam this morning. Exam Vital signs and Labs for Last 24 Hours: Temp Pulse Resp BP Pulse Ox 98.1 F 86 20 98/53 L 100 10/02/19 08:00 10/02/19 08:00 10/02/19 08:00 10/02/19 08:00 10/02/19 08:00 Laboratory Results - last 24 hr 09/28/19 18:50: Crossmatch ([facility]) See Detail 10/01/19 13:25: Blood Type O Positive, Antibody Screen Negative, Crossmatch ([facility]) See Detail 10/01/19 18:23: Hgb 9.4 L D, Hct 28.5 L 10/02/19 06:40: WBC 9.6, RBC 2.88 L, Hgb 8.5 L, Hct 25.7 L, MCV 89.3, MCH 29.6, MCHC 33.2, RDW 14.8, Plt Count 210, MPV 7.7, Neut % (Auto) 77.4, Lymph % (Auto) 14.8, Armstrong % (Auto) 5.5, Eos % (Auto) 2.1, Baso % (Auto) 0.2, Neut # (Auto) 7.5, Lymph # (Auto) 1.4, Armstrong # (Auto) 0.5, Eos # (Auto) 0.2, Baso # (Auto) 0.0 10/02/19 06:40: Sodium 132 L, Potassium 3.0 L, Chloride 98, Carbon Dioxide 30, Anion Gap 7.0, BUN 11, Creatinine 0.50 L, Estimated Creat Clear 190, Estimated GFR 126, Est GFR ( Amer) 153 D, Glucose 97, Calcium 8.0 L I & O for Last 24 hours: Intake & Output 09/29/19 09/30/19 10/01/19 10/02/19 23:59 23:59 23:59 23:59 Intake Total 3000 / 3000 1940 / 1940 2300 / 2300 960 / 960 Output Total 800 / 1000 1400 / 1400 750 / 750 Balance 2200 / 2000 540 / 540 1550 / 1550 960 / 960 Weight 96.87 kg 95.339 kg 101 kg 99.393 kg Narrative: Patient is awake. Alert. Pleasant. Sitting up in a chair, stable on room air. Excellent lung entry of air, no wheezing or rhonchi or crackles Heart rate regular, no murmur Surgical site bandage in place on left lateral upper thigh, minimal ecchymoses, mild tenderness. Clear and dry. No peripheral edema in the unaffected leg. Neurologically intact. Does appear pale. Assessment and Plan (1) Degenerative joint disease of left hip Current visit: Yes Status: Acute Category: Medical Code(s): M16.12 - Unilateral primary osteoarthritis, left hip (2) Diabetes Current visit: Yes Status: Acute Category: Medical Code(s): E11.9 - Type 2 diabetes mellitus without complications (3) CAD (coronary artery disease) Current visit: No Status: Chronic Qualifiers: Coronary Disease-Associated Artery/Lesion type: [place] artery [place] vs. transplanted heart: [place] heart Associated angina: without angina Qualified Code(s): I25.10 - Atherosclerotic heart disease of [place] coronary artery without angina pectoris Category: Medical Code(s): I25.10 - Atherosclerotic heart disease of [place] coronary artery without angina pectoris (4) DDD (degenerative disc disease), lumbar Current visit: No Status: Chronic Category: Medical Code(s): M51.36 - Other intervertebral disc degeneration, lumbar region (5) HTN (hypertension) Current visit: No Status: Chronic Qualifiers: Hypertension type: essential hypertension Qualified Code(s): I10 - Essential (primary) hypertension Category: Medical Code(s): I10 - Essential (primary) hypertension (6) Acute postoperative anemia due to expected blood loss Current visit: Yes Status: Acute Category: Medical Code(s): D62 - Acute posthemorrhagic anemia - Assessment and plan all Dx Assessment and Plan for all problems:: Patient's hemoglobin has gone down to 8.5g this morning. Still within an acceptable range. Do not recommend further transfusion at this time. Do recommend repeat hemoglobin level/CBC later this week in the outpatient setting. If for some reason needs further transfusions at that time, would benefit from outpatient administration. No contraindication at this time to discharge for continued physical therapy and custodial. I strongly believe patient would benefit from skilled care transfer and get best improvement in resumption of independent activity. Continue dietary Recs from inpatient admission Continue current medications for chronic conditions. Would hold blood pressure medication at this time given her blood pressures have been soft in the perioperative setting. Will reevaluate necessity of resumption once in a more stable outpatient setting. DVT prophylaxis per orthopedics Pain control per orthopedics We will continue to have close monitoring of patient at [facility] [place] and will see her in the coming days.
--- NOTE | 2019-10-02 09:55 | Progress Note ---
Subjective Date: 10/02/19 Time: 09:00 Principal diagnosis: s/p L ADELFO Interval history: The patient is sitting in bedside chair this morning, doing well. I witnessed her stand unassisted and walk to bathroom with rolling walker. She reports fatigue but denies chest pain, shortness of breath. Appetite has been decreased but she has been taking small bites of food throughout the day. No drainage from her hip dressing. PN: Obj Ex Vital signs: Temp Pulse Resp BP Pulse Ox 98.1 F 86 20 98/53 L 100 10/02/19 08:00 10/02/19 08:00 10/02/19 08:00 10/02/19 08:00 10/02/19 08:00 - Constitutional no acute distress - Routine Extremities Exam Comments: hip abduction pillow in place dressing L hip c/d/i --> silverlon dressing removed, incision c/d/i, no ecchymosis, erythema or drainage +DF/PF/EHL LLE palpable pedal pulses L foot; foot warm, BCR SILT distally LLE in all distributions - Routine Neurological Exam Present: alert, oriented X3, moving all extremities, normal tone, hearing grossly intact, normal speech. Absent: sensory deficit, motor deficit, altered mental status - Urinary Catheter Management Soria Cath placed during this visit: no Urethral indwelling: No Progress Note: A&P (1) Degenerative joint disease of left hip Status: Acute Current Visit: Yes (2) Diabetes Status: Acute Current Visit: Yes (3) CAD (coronary artery disease) Status: Chronic Current Visit: No (4) DDD (degenerative disc disease), lumbar Status: Chronic Current Visit: No (5) HTN (hypertension) Status: Chronic Current Visit: No (6) Acute postoperative anemia due to expected blood loss Status: Acute Current Visit: Yes Assessment and Plan for All Diagnoses:: 59yo F POD 3 s/p L ADELFO -- Hgb 8.5 this morning, cleared by Dr. Rivera for discharge to SNF -- pain management: percocet 10/325 mg q4-6 hours PRN -- DVT prophy: lovenox x 2 weeks, then aspirin x 1 month -- WBAT LLE -- PT/OT to continue at SNF -- posterior hip precautions, abduction pillow while in bed -- ice pack L hip -- dispo: to [facility] today, will pull CVC prior to discharge. F/u with me in clinic in 2 weeks.
--- NOTE | 2019-10-02 10:01 | Discharge Summary ---
General - General Admission date:: 09/29/19 Discharge date: 10/02/19 HPI HPI: 59-year-old female with severe DJD L hip with chronic pain. She saw me 08/16/2019 for the first time and reports several years of hip pain, worsening over the preceding month. She also has longstanding issues with her lumbar spine; s/p L3- L5 [place] [address] [place]. She has chronic radiculopathy and is in pain management; she has both an implanted neural stimulator and intrathecal pain pump. Surgery was planned on the hip (ADELFO) and she received clearance from her PCP, heading repairer, dentist and neurosurgeon. At her pre-op visit with me on 09/11/2019 she reported a sudden, severe increase in pain the day prior, having experienced a pop in the hip while walking in her kitchen. Since that day she has been unable to walk more than a few feet, and just bearing weight has been very painful. XR 09/10/2019 revealed further collapse of the femoral head; I estimated this to be roughly 20-25% collapse. The acetabulum was noted to be dysplastic as well, with multiple subcortical cystic lesions and a thin medial wall. Her ADELFO was initially scheduled for 09/14/2019 but cancelled due to the patient developing gastroenteritis with diarrhea. She was treated by her PCP for this and recovered in a few days with no lingering symptoms; afebrile throughout. Surgery was rescheduled for 09/21/2019 but cancelled due to the outbreak of coronavirus in our state, causing multiple staff to become quarantined. As of 09/28/2019, there are were patients admitted to our hospital with suspicion of covid-19, no staff members that are symptomatic, and sufficient staff have been released from quarantine to fully staff our OR. In my eyes I view this as an urgent procedure, as her femoral head is actively collapsing and she is nearly totally disabled. She has been off of her aspirin since 09/10/2019. She initially took her Bactroban for 5 days prior to surgery but when it was canceled did not restart it. I added vancomycin to her perioperative antibiotic plan in lieu of completing Bactroban. Repeat labs were drawn last night and with the exception of mild anemia (Hgb 10.6) they were within normal limits. Surgery was performed today without intra-operative complication, though there was significant EBL of 1400cc. This was replenished intra-operatively with 2 units PRBCs. The acetabulum was dysplastic and curettage/grafting of subcortical cysts + addition of a Vitoss mesh was required, followed by a Elliot MCM cup with additional wedge augment; ceramic femoral head used. 3L crystalloid given intra-op (normal saline); UOP was 800cc during case. Hemodynamically stable throughout the case. Past medical history is significant for CHF, DM, GERD, asthma, CAD, migraines, HTN, and anxiety/depression. Allergies reported to keflex, morphine, PCN and adhesive tape. Home medications include aspirin, carvedilol, vit C/D, arthrotec, duloxetine, iron, gabapentin. She lives in a multi-story home with her and 4 children. She uses a walker at baseline. Her intrathecal pain pump was last refilled with dilaudid on 09/08/2019. Hospital Course Hospital Course: Post-operatively the patient was admitted to the med/surg floor and home med ications restarted. Her BP meds were not needed during stay, as BP was stable from 90's-100's systolic. No chest pain, shortness of breath or tachycardia; afebrile. Soria was removed on POD 1. Pain medication started: po percocet + IV dilaudid for breakthrough. By POD 3 pain was controlled on oral meds only. Lovenox was started for DVT prophy on POD 1 and SCDs worn BLE throughout stay. Incentive spirometer was encouraged 10x/hr while awake, which the patient was compliant with. She had no drainage from her dressings and full dressing change was performed on POD 3. She participated with physical therapy 2x daily and made progress with each session. By the time of discharge she was able to get out of a chair and walk to the bathroom unassisted with rolling walker. Abduction pillow was worn while in bed and posterior hip precautions enforced. Her only medical issue during admission was anemia; she began anemic pre-op with Hgb 10.6. Moderate intra-operative EBL ensued, and by the time of admission she had received 6 units cross-matched PRBCs. In addition, IV access was lost in PACU and central line was placed; R IJ CVC. This was removed prior to discharge on POD 3. Objective Vital signs: Temp Pulse Resp BP Pulse Ox 98.1 F 86 20 98/53 L 100 10/02/19 08:00 10/02/19 08:00 10/02/19 08:00 10/02/19 08:00 10/02/19 08:00 no acute distress - *Routine HEENT Exam Head: Present: normocephalic Eye: Present: EOMI ENT: Present: mucous membranes moist - *Routine Respiratory Exam Absent: respiratory distress, wheezes - *Routine Cardiovascular Exam Present: RRR - *Routine Abdominal Exam Present: soft. Absent: tenderness - *Routine Extremities Exam Comments: hip abduction pillow in place dressing L hip c/d/i --> outer dressing removed, inner silverlon dressing left intact, no strikethrough +DF/PF/EHL LLE palpable pedal pulses L foot; foot warm, BCR SILT distally LLE in all distributions - *Routine Skin Exam Present: warm. Absent: ecchymosis - *Routine Neurological Exam Present: alert, oriented X3, moving all extremities, normal tone, hearing grossly intact, normal speech. Absent: sensory deficit, motor deficit, altered mental status - Routine Psychiatric Exam Present: normal affect Results Labs on day of discharge: Labs from last 24 hours 10/02/19 10/02/19 10/01/19 06:40 06:40 18:23 WBC 9.6 RBC 2.88 L Hgb 8.5 L 9.4 L D Hct 25.7 L 28.5 L MCV 89.3 MCH 29.6 MCHC 33.2 RDW 14.8 Plt Count 210 MPV 7.7 Neut % (Auto) 77.4 Lymph % (Auto) 14.8 Charlton % (Auto) 5.5 Eos % (Auto) 2.1 Baso % (Auto) 0.2 Neut # (Auto) 7.5 Lymph # (Auto) 1.4 Charlton # (Auto) 0.5 Eos # (Auto) 0.2 Baso # (Auto) 0.0 Sodium 132 L Potassium 3.0 L Chloride 98 Carbon Dioxide 30 Anion Gap 7.0 BUN 11 Creatinine 0.50 L Estimated Creat Clear 190 Estimated GFR 126 Est GFR ( Amer) 153 D Glucose 97 Calcium 8.0 L Blood Type Antibody Screen Crossmatch ([facility]) 10/01/19 09/28/19 13:25 18:50 WBC RBC Hgb Hct MCV MCH MCHC RDW Plt Count MPV Neut % (Auto) Lymph % (Auto) Charlton % (Auto) Eos % (Auto) Baso % (Auto) Neut # (Auto) Lymph # (Auto) Charlton # (Auto) Eos # (Auto) Baso # (Auto) Sodium Potassium Chloride Carbon Dioxide Anion Gap BUN Creatinine Estimated Creat Clear Estimated GFR Est GFR ( Amer) Glucose Calcium Blood Type O Positive Antibody Screen Negative Crossmatch ([facility]) See Detail See Detail DS: Diagnosis - Discharge Diagnosis (1) Degenerative joint disease of left hip Status: Acute (2) Diabetes Status: Acute (3) CAD (coronary artery disease) Status: Chronic (4) DDD (degenerative disc disease), lumbar Status: Chronic (5) HTN (hypertension) Status: Chronic (6) Acute postoperative anemia due to expected blood loss Status: Acute Discharge Plan - Patient Discharge Instructions ACTIVITY: Continue current activity, Up with assistance, Other (posterior hip precautions; abduction pillow while in bed ) DIET: diabetic diet Additional Instructions: detailed discharge instruction sheet placed on patients chart -- continue PT/OT at SNF, posterior hip precautions, abduction pillow in bed -- ok to shower, no scrubbing wound, no tub baths/whirlpools/swimming pools. Pat dry after shower and cover with clean dressing. Recommend changing dressing with hygiene; otherwise may change every 1-2 days as needed. Contact MD if drainage noted. [phone] (Nuvia). -- lovenox 40mg SQ daily x 14 days post-op; stop date of 10/14/2019. Will see Dr. Pedersen in the office that day, at which time she will be switched to aspirin x 1 month. -- pain control: po percocet 10/325mg q4-6 hr PRN -- continue incentive spirometer 10x/hr while awake -- will hold BP meds at transfer; have not been needed during admission, will be reassessed at SNF -- recommend checking CBC later this week at [facility]; send results to Drs. Horan/Nicole and Nuvia's offices -- f/u with Dr. Pedersen on 10/14/2019; will call [facility] Friday with time Patient Instructions: Anemia, DI for Hip Replacement, DI for Surgical Site Infection - Follow up Plan Follow up with: Letha Pedersen MD [Physician] - 10/14/19 (will call [facility] on Friday10/04/2019 with appointment time; will need XR prior to visit ) Disposition: Xfer [facility] Home Medications: Home Medications Medication Instructions Recorded Confirmed Type ascorbic acid (vitamin C) 500 mg 500 mg PO DAILY 07/16/17 09/30/19 History tablet aspirin 81 mg tablet,delayed 81 mg PO DAILY 07/16/17 09/30/19 History release carvedilol 12.5 mg tablet 12.5 mg PO BID 07/16/17 09/29/19 History cholecalciferol (vitamin D3) 10 400 unit PO DAILY 07/16/17 09/30/19 History mcg (400 unit) capsule diclofenac 75 mg-misoprostol 200 1 tab PO BID 07/16/17 09/29/19 History mcg tablet,immediate,delayed release montelukast 10 mg tablet 10 mg PO HS 07/16/17 09/30/19 History ibuprofen 800 mg tablet 800 mg PO BID PRN tab 09/22/17 09/29/19 History duloxetine 60 mg capsule,delayed 60 mg PO BID 03/27/18 09/30/19 History release tramadol 50 mg tablet 50 mg PO TIDP PRN 03/27/18 09/30/19 History zolpidem 10 mg tablet 10 mg PO HS tab 08/25/19 09/30/19 History mupirocin 2 % topical ointment 1 applic TOPICAL BID #15 g 09/10/19 09/29/19 Rx Gabapentin 800 mg PO QID 09/30/19 09/30/19 History Hydrocodone/Acetaminophen 1 each PO QIDP PRN 09/30/19 09/30/19 History [Hydrocodone-Acetamin 5-325 mg] Iron,Carbonyl [Feosol] 45 mg PO DAILY 09/30/19 09/30/19 History LORazepam [Lorazepam] 1 mg PO TIDP PRN 09/30/19 09/30/19 History OXcarbazepine [Oxcarbazepine] 300 mg PO BID 09/30/19 09/30/19 History Potassium Chloride [Klor-con 20 20 meq PO DAILY 09/30/19 09/30/19 History mEq tablet] Spironolactone [Spironolactone 25 mg PO DAILY 09/30/19 09/30/19 History 25mg Tablet] Triamterene/Hydrochlorothiazid 1 each PO DAILY 09/30/19 09/30/19 History [Maxzide 37.5 mg-25 mg Tablet] lamoTRIgine [Lamotrigine] 200 mg PO BID 09/30/19 09/30/19 History raNITIdine HCL [Ranitidine HCl] 150 mg PO BID 09/30/19 09/30/19 History Oxycodone HCl/Acetaminophen 1 tab PO Q6H PRN #30 tab 10/02/19 Rx [Percocet 10-325 mg Tablet] Prescriptions/Medication Reconciliation: New lamoTRIgine [Lamictal 100mg Tablet] 200 mg PO BID tablet Acetaminophen [Acetaminophen 325mg tab] 650 mg PO Q6HP PRN tablet PRN Reason: Mild To Moderate Pain Duloxetine HCl [Cymbalta 30mg capsule] 60 mg PO BID capsule. Enoxaparin Sodium [Lovenox 40mg/0.4mL syringe] 40 mg SQ DAILY syringe Gabapentin [Neurontin 400mg cap] 800 mg PO DAILY capsule OXcarbazepine [Trileptal 300mg tablet] 300 mg PO BID tablet Oxycodone HCl/Acetaminophen [Percocet 10-325 mg Tablet] 1 tab PO Q6H PRN #30 tab PRN Reason: Moderate To Severe Pain Continued cholecalciferol (vitamin D3) 10 mcg (400 unit) capsule 400 unit PO DAILY ascorbic acid (vitamin C) 500 mg tablet 500 mg PO DAILY montelukast 10 mg tablet 10 mg PO HS duloxetine 60 mg capsule,delayed release 60 mg PO BID LORazepam [Lorazepam] 1 mg PO TIDP PRN PRN Reason: Anxiety Iron,Carbonyl [Feosol] 45 mg PO DAILY raNITIdine HCL [Ranitidine HCl] 150 mg PO BID lamoTRIgine [Lamotrigine] 200 mg PO BID Gabapentin 800 mg PO QID OXcarbazepine [Oxcarbazepine] 300 mg PO BID Potassium Chloride [Klor-con 20 mEq tablet] 20 meq PO DAILY Held carvedilol 12.5 mg tablet 12.5 mg PO BID Triamterene/Hydrochlorothiazid [Maxzide 37.5 mg-25 mg Tablet] 1 each PO DAILY Spironolactone [Spironolactone 25mg Tablet] 25 mg PO DAILY Discontinued aspirin 81 mg tablet,delayed release 81 mg PO DAILY diclofenac 75 mg-misoprostol 200 mcg tablet,immediate,delayed release 1 tab PO BID ibuprofen 800 mg tablet 800 mg PO BID PRN tab PRN Reason: Pain tramadol 50 mg tablet 50 mg PO TIDP PRN PRN Reason: PAIN zolpidem 10 mg tablet 10 mg PO HS tab mupirocin 2 % topical ointment 1 applic TOPICAL BID #15 g Hydrocodone/Acetaminophen [Hydrocodone-Acetamin 5-325 mg] 1 each PO QIDP PRN PRN Reason: PAIN - Problem Reconciliation Problems Reviewed?: Yes
== END 2019-10-02 11:38 | DRG 470 ==
LOC: 2ND 07:04 → OR 07:04 → OBSVTOIN 16:12
PROVIDERS: ADMIT Orthopaedic Surgery; ATTEND Orthopaedic Surgery
CPT/HCPCS: 36415; 71010; 71045; 73030; 73502; 80048; 81001; 82962; 85014; 85018; 85025; 86850; 96374; 97116; 97161; 97166; 97530; 97535; C1713; C1751; C1762; C1776; J2405; J2704; J3370; P9016; S0077

== ENCOUNTER → 2019-10-14 09:48 | Outpatient (CLI) | payer BC, SELFPAY ==
--- NOTE | 2019-10-14 09:57 | XR_ITS ---
PROCEDURE: XR HIP LT 2-3V W/PELVIS weightbearing views CLINICAL INDICATION: sp LT ADELFO, sx 09/29/2019 COMPARISON: XR HIP LT 2-3V W/PELVIS from 09/29/2019 FINDINGS: Postoperative changes of total left hip replacement is again noted. Prostheses appear appropriately seated. There is anatomical positioning. On the lateral image there is an approximately 6 millimeter calcification along the inferior acetabulum which could represent a fracture fragment or bone fragment related to the prior surgery. This was not present on the immediate postoperative image. Clinical correlation is recommended. Postsurgical gas noted previously has resolved. IMPRESSION: Status post total left hip replacement with possible small displaced bone fragment along the inferior aspect of the acetabulum. Dictated by: Terry Chung 10/14/2019 11:46 Electronically signed by Terry Chung in [place] 10/14/2019 11:46
== END ==
PROVIDERS: PCP Internal Medicine; Visit Provider Orthopaedic Surgery
DX: Z48.89 Encounter for other specified surgical aftercare (principal); M25.552 Pain in left hip
CPT/HCPCS: 73502

== ENCOUNTER 2019-10-25 15:23 | Day surgery (SDC) | payer BC, SELFPAY ==
[2019-10-25 15:32] VITALS: BP 113/52; BP 115/58; BP 125/78; PULSE 71; PULSE 75; PULSE 82; PULSE 90; RESP 18; O2SAT 98; O2SAT 99; BMI 29.7
--- NOTE | 2019-10-25 15:35 | HMH.PMPROC ---
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 She like a slight increase of her medication she is on hydromorphone and bupivacaine. She is awaiting a surgery to flip her pump and secure it. She did present today with a flipped pump. We were able to still fill her however. She rates her pain a 5 out of 10 Physical Exam General: Alert and oriented x3, no acute distress, pleasant and cooperative, [on room air] Lungs: Resps E/U, Symmetrical chest expansion, Eyes: PERRL Musculoskeletal: Flexion and extension of lumbar spine somewhat guarded secondary to pain, deep tendon reflexes normal, strength in upper and lower extremities [5/5], [abnormal gait noted] Neurological: speech clear, doughnut batter mixer equal, no gross sensory deficits Procedure Details:: Informed consent was obtained and the risk and benefits of the procedure were explained to the patient. The patient was taken to the procedure room where noninvasive monitoring was placed including noninvasive blood pressure cuff and pulse oximeter. Patient's pump was interrogated. The area over the pump was cleansed with chlorhexidine as a cleansing solution. In sterile fashion the pump was accessed with a 22-gauge needle. Approximately 5 mL's were removed of the pump solution and discarded appropriately. The pump was then refilled with 20 mL's of hydromorphone 10 mg/mL and bupivacaine 10 mg/mL. The needle was withdrawn and a bandage was placed over the puncture site. The infusion rate was reprogrammed to 3.5 mg/day on a flex dose.. The patient tolerated the procedure well. Plan and Disposition:: I will see the patient back at her next intrathecal pain pump refill and reprogram patient's been instructed to call the office if she has any issues prior to her next appointment. Dr. Ortiz has reviewed this note and agrees with this plan of care. This note was dictated using voice recognition software and may contain errors or omissions we specifically discussed risk factors for Covid-19 including age, heart or lung disease, diabetes, immunosuppression and travel. We also discussed that NSAIDs may worsen Covid-19 infection symptoms and that they should not be used to treat Covid-19 symptoms. Patient was also informed that corticosteroids in any form oral or injectable will decrease immune response and may increase risk of Covid-[address] Ortiz has reviewed this patient's chart and this note and agrees with plan of care. Patient has been instructed to call the office if they have any issues prior to the next appointment.
== END 2019-10-25 16:18 | disposition home or self-care (01) ==
LOC: SC.PAINP 15:24
PROVIDERS: PCP Internal Medicine; Visit Provider Clinical Nurse Specialist Family Health
DX: M51.16 Intervertebral disc disorders with radiculopathy, lumbar region (principal); M96.1 Postlaminectomy syndrome, not elsewhere classified; Z88.0 Allergy status to penicillin; Z88.5 Allergy status to narcotic agent; Z88.8 Allergy status to other drugs, medicaments and biological substances; Z91.048 Other nonmedicinal substance allergy status; E11.9 Type 2 diabetes mellitus without complications; I10 Essential (primary) hypertension; I25.10 Atherosclerotic heart disease of native coronary artery without angina pectoris
CPT/HCPCS: 62370

== ENCOUNTER → 2019-11-11 10:17 | Outpatient (CLI) | payer BC, SELFPAY ==
--- NOTE | 2019-11-11 10:27 | XR_ITS ---
PROCEDURE: XR HIP LT 2-3V W/PELVIS CLINICAL INDICATION: Lt hip FU Follow-up hip replacement COMPARISON: XR HIP LT 2-3V W/PELVIS from 09/10/2019 XR HIP LT 2-3V W/PELVIS from 09/29/2019 XR HIP LT 2-3V W/PELVIS from 10/14/2019 FINDINGS: Status post total hip prosthesis placement on the left with good alignment and no evidence of orthopedic complication. There is a defect present along the roof of the acetabulum laterally. There is some heterotopic ossification versus small displaced bony fragment at the lateral aspect of the acetabulum on the AP view. Pain pump is noted on the right along with a neurostimulator device on the left in the lower lumbar region and postsurgical changes of the lumbar spine. IMPRESSION: Status post hip replacement with good alignment with a defect in acetabular roof laterally and with heterotopic ossification versus small displaced bony fragment at the lateral acetabular region. Dictated by: Hema hCen MD 11/11/2019 11:34 Electronically signed by Hema Chen MD in [place] 11/11/2019 11:34
== END ==
PROVIDERS: PCP Internal Medicine; Visit Provider Orthopaedic Surgery
DX: M16.12 Unilateral primary osteoarthritis, left hip (principal)
CPT/HCPCS: 73502

== ENCOUNTER → 2019-11-29 10:46 | Outpatient (CLI) | payer BC, SELFPAY ==
[2019-11-29 11:40] LABS: Basophils % 0.4 % (0.1-2.0); Eosinophils # 0.2 K/mm3 (0.0-0.4); Eosinophils % 3.5 % (0.1-12.0); Hematocrit 33.3 % (37.0-47.0); Hemoglobin 10.4 g/dL (12.2-16.2); Lymphocytes # 1.2 K/mm3 (0.7-4.5); Lymphocytes % 26.3 % (10-50); Mean Corpuscular HGB Conc 31.4 g/dL (31.8-35.4); Mean Corpuscular Hemoglobin 28.7 pg (27.0-31.2); Mean Corpuscular Volume 91.3 fl (81-99); Mean Platelet Volume 6.9 fl (7.4-10.4); Monocytes # 0.3 K/mm3 (0.1-1.0); Monocytes % 6.5 % (1.7-9.3); Neutrophils # 2.9 K/mm3 (1.8-7.8); Neutrophils % 63.2 % (37.0-80.0); Platelet Count 340 K/mm3 (142-424); Red Blood Count 3.65 M/mm3 (4.20-5.40); Red Cell Distribution Width 14.7 % (11.5-17.5); White Blood Count 4.6 K/mm3 (4.8-10.8)
[2019-11-29 12:51] LABS: Blood Urea Nitrogen 17 mg/dl (7-17); Calcium 9.6 mg/dl (8.4-10.2); Carbon Dioxide 30 mmol/L (22.0-30.0); Chloride 101 mmol/L (98-107); Estimated Glomerular Filt Rate 86 ml/min (>60); GFR (African American) 104 ML/MIN (>60); Glucose 95 mg/dl (74-100); Sodium 136 mmol/L (136-145)
[2019-12-01 11:07] LABS: Covid-19 Nasal PCR Sendout Lex NOT DETECTED
== END ==
PROVIDERS: Visit Provider Anesthesiology
DX: Z01.818 Encounter for other preprocedural examination (principal); M51.36 Other intervertebral disc degeneration, lumbar region
CPT/HCPCS: 36415; 80048; 85025; U0004

== ENCOUNTER 2019-12-01 07:26 | Day surgery (SDC) | payer BC, SELFPAY ==
--- NOTE | 2019-11-26 13:11 | SUR.PREOP ---
11/26/2019 @ 1311--PHONE CALL MADE TO PATIENT. PATIENT UNDERSTANDS THAT LAB WORK AND COVID TESTING NEEDS TO BE COMPLETED @ 0800 ON 11/29/2019 . PATIENT UNDERSTANDS IF LAB WORK AND COVID-19 TESTS ARE NOT COMPLETED BY 12PM ON THAT DATE, THE SURGERY SCHEDULED WILL BE CANCELLED AND RESCHEDULED FOR ANOTHER TIME.
[2019-12-01] VITALS (16 sets, daily range): BP systolic 93–144; BP diastolic 47–90; PULSE 56–90; RESP 16–25; TEMP 36.4–36.8; O2SAT 92–100; BMI 31.3
--- NOTE | 2019-12-01 08:43 | P.PN_ITS ---
[facility] Anesthesia Checklist - Patient Identification Patient Identification: Arm Band, Verbal (Name & ) - Structural Data Admitted From: Home Planned Operative Procedure/s: IT pain pump generator pocket revision Consent for Planned Operative Procedure(s) Verified: Yes Verified Documents: Surgical Consent, History and Physical - NPO Status Verified Time NPO: 23:00 - Chart Verification Results Verified: CBC, BMP, UA (urine toxicology) - Additional verifications Patient : No Anesthesia Reactions: No Hx Blood Transfusions: Yes Blood Transfusion Reaction: No - Airway Assessment C-Spine Mobility Assessed: Yes TMJ Mobility Assessed: Yes Dentition: Good Dentition (missing teeth) - Neurological Assessment Level of Consciousness: Awake, Alert, Appropriate, Follows Commands Hx Seizures: No Numbness or tingling in extremities: Yes (peripheral neuropathy in bilateral lower extremities) - Anesthesia Plan Anesthesia Risk discussed: Yes Anesthesia Plan: Verified ASA Class: III Anesthesia Type: [facility] History I have reviewed the patient's past medical history: Yes Medical History: Reports:: Anxiety, Arrhythmia, Asthma, Coronary Artery Disease, Depression, Diabetes Mellitus Type 2, Gastroesophageal Reflux Disease(GERD), Hypertension, Migraine, Palpitations Denies:: Aneurysm, Atrial Fibrillation, Cancer, Chronic Obstructive Pulmonary Disease (COPD), Cerebrovascular Accident, Deep Vein Thrombosis, Diabetes Mellitus Type 1, Gastrointestinal Bleed, Hyperlipidemia, Internal Pacemaker, Kidney Stones, MRSA, Myocardial Infarction, Osteoporosis, Peripheral Artery Disease, Pulmonary Embolism, Renal Disease, Seizures, Supraventricular Tachycardia, Transient Ischemic Attacks (TIA), Valvular Heart Disease Comment Only: Congestive Heart Failure (diastolic dysfunction) *Have you ever received a pneumonia vaccine?: No *Have you received a flu vaccine this season?: Yes Other Medical History: Reports: Anemia, Arthritis, Cataracts, Fibromyalgia, Sinus Problems. Denies: Blood Transfusion Reaction, Chemotherapy, Glaucoma, Acquired Immunodeficiency Syndrome (AIDS), HIV, Hoarseness, Hormone Therapy, Hypothyroidism, Liver Disease, Osteoporosis, Radiation Therapy, Sickle Cell Disease, Thyroid Disease, Unexplained Bleeding Comment:: chronic pain Anesthesia experience/problems:: none Laterality Cases: Left: Breast Biopsy, Total Hip Replacement, Right: Arthroscopy Knee, Bilateral: Tonsillectomy, Other Other Surgeries: Yes: Appendectomy, Bariatric Surgery, Cardiac Catheterization, Cholecystectomy, Colonoscopy, Dilation and Curettage, EGD, Hysterectomy-Total, Other (spinal stimulator, pain pump). 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
--- NOTE | 2019-12-01 10:29 | P.OP_ITS ---
Date of procedure: 12/01/19 Pre-op Diagnosis:: Nonfunctioning pain stimulator system, malpositioned pain pump generator Post-op Diagnosis:: Same Procedure performed:: Removal of pain stimulator system (leads and generator), reposition pain pump generator Surgeon:: Armand Hannon MD [facility] MANAGER:: Philip Jamison, Anjel Blank, Aashish Murray, Maxwell York, Other Anesthesia: GETA Estimated blood loss (mL): 10 Operative findings:: Negative except flipped pain pump generator Operative note:: Patient was placed prone on the operating table once general endotracheal anesthesia was obtained and her back was prepped and draped in sterile fashion. An incision was made over the generator lead insertion site carried down through skin subcutaneous tissues. Fixation devices and the leads were removed noting the tip of the leads to be intact. Incision was then made over the pain stimulator generator and the generator was removed as well as the attached leads without difficulty. Wounds were irrigated with antibiotic solution. An incision was then made over the pain pump system and carried the thick skin and subcutaneous tissues. Generator was delivered out of the incision without difficulty noting it to be flipped. CSF was aspirated from the generator noting patency of the system. Lead was then refilled with medications per direction of Dr. asfi. The generator was placed back in the pocket proper position it was sutured in place by attaching the generator to the underlying fascia with 2-0 Prolene sutures. The pockets were all irrigated with antibiotic solution. Subcutaneous tissues closed with 2-0 Vicryl. Skin was closed with interrupted stitches of 4-0 nylon. Wound VAC dressings and a binder applied to the wound. The patient also had local anesthesia utilizing 1% Xylocaine. The patient tolerated procedure well and was taken to the recovery room in stable condition. She will take an antibiotic x1 week per protocol. The patient tolerated the procedure well Condition: stable Disposition: PACU Complications:: None
--- NOTE | 2019-12-01 10:45 | P.PN_ITS ---
[facility] Anesthesia Record Part I Intake, IV Amount: 800 Estimated blood loss (mL): 10 Urine output (mL): 0 Blood Pressure: 119/68 SaO2: 95 Pulse Rate: 63 Respiratory Rate: 16 Temperature: 97.5 F Patient is:: Drowsy, Stable Stable to PACU at:: 10:40
[2019-12-01 17:50] LABS: POC Glucose,Bedside 109 (70-110)
--- NOTE | 2019-12-02 08:03 | HMH.ANESII ---
[facility] Anesthesia Record Part II Discharge Time: 11:25 Destination: Home PACU nurse assessment reviewed?: Yes Patient Condition:: Good Anesthesia Complications:: None Swallowing reflex intact?: Yes Cyanosis?: No Blood Pressure: 102/60 Pulse Rate: 71 Temperature: 97.6 F Mental Status: Alert & Oriented Pain level:: 6 Nausea and/or vomitting:: None Intake, IV Amount: 0
[2019-12-02 08:05] VITALS: BP 102/60; PULSE 71; TEMP 36.4
== END 2019-12-01 15:00 | disposition home or self-care (01) ==
LOC: OR 07:27
PROVIDERS: PCP Internal Medicine; Visit Provider Surgery
PROC: (CPT 63661; principal; 2019-12-01 09:00)
DX: Z45.42 Encounter for adjustment and management of neurostimulator (principal); I10 Essential (primary) hypertension; I25.10 Atherosclerotic heart disease of native coronary artery without angina pectoris; K21.9 Gastro-esophageal reflux disease without esophagitis; E11.9 Type 2 diabetes mellitus without complications; F41.9 Anxiety disorder, unspecified; F32.9 Major depressive disorder, single episode, unspecified; Z87.39 Personal history of other diseases of the musculoskeletal system and connective tissue; Z96.643 Presence of artificial hip joint, bilateral
CPT/HCPCS: 63661; 63688; 82962; 96374; J2405; J2704; J2710; J3370

== ENCOUNTER → 2019-12-09 09:41 | Outpatient (POV) | payer BC, SELFPAY ==
[2019-12-09 10:20] VITALS: BP 108/83; PULSE 66; RESP 18; TEMP 36.8; O2SAT 98; BMI 31.3
--- NOTE | 2019-12-09 13:39 | HMH.PAINSOAP ---
[facility] Pain Management SOAP Note Subjective:: Patient is a 59-year-old white female who presents today for follow-up after removal of spinal cord stimulator and repositioning of her intrathecal pain pump. Patient is being treated for low back pain with lumbar radiculopathy symptoms. She says that her spinal cord stimulator was no longer functioning and as a result 1 in the stimulator removed. Is not interested in reimplanting any other stimulators. She did have a repositioning of her intrathecal pain pump. Overall, the patient says she is doing well. She does say that she had irritation to her low back area following the procedure due to a sensitivity to adhesive tape. Patient is unhappy that she has had to take Benadryl since the procedure. Otherwise, the patient's pain is doing well. She rates her pain a 6 out of 10 with a 5 out of 10 being her baseline. Overall, patient says she feels like she is doing much better since having the stimulator removed. Review of Systems General: No recent weight changes, no fever, no sleep disturbances Respiratory: No cough, no shortness of air, no recurring pulmonary infections Cardiovascular/peripheral vascular: No chest pain, no palpitations, no edema, no shortness of breath Gastrointestinal: No new onset incontinence, normal bowel movements reported Genitourinary: No new onset incontinence Musculoskeletal: Low back pain Psychiatric: Normal mood/affect Neurological: [Denies weakness in extremities], [denies balance issues] Objective:: Physical exam General: Alert and oriented x3, no acute distress, pleasant and cooperative, [on room air] Lungs: Respirations even and unlabored, symmetrical chest expansion Eyes: PERRL Musculoskeletal: Flexion and extension of lumbar spine somewhat guarded secondary to pain, deep tendon reflexes normal, strength in upper and lower extremities [5/5], [abnormal gait noted] Neurological: Speech clear, hospital cna equal, no gross sensory deficit Integumentary: Incision well approximated, no redness, no drainage, no edema noted to site. Sutures intact Assessment:: Degenerative disc disease lumbar spine with lumbar radiculopathy symptoms Plan:: Overall, patient is doing well following removal of her stimulator and repositioning of her intrathecal pump. Patient has been encouraged to continue wearing her abdominal binder. Patient's incisions look good, no redness no drainage, no edema noted to the sites. Her sutures are intact. She will follow-up in the clinic in 3 weeks to have her sutures removed. She has been instructed to contact clinic if she has any concerns before next appointment. The patient and I specifically discussed risk factors for COVID19. These risks include, but are not limited to age greater than 60, heart or lung disease, diabetes, immunosuppression, and travel. We also discussed NSAIDs may worsen COVID19 infection or symptoms. Patient should not use NSAIDs to treat COVID19 signs or symptoms. Patient was also informed that any type of corticosteroid of any form (oral or injection) will decrease the patient's immune system response and may increase the likelihood of COVID19 infection [address] symptoms[address]. Ortiz has reviewed this note and agrees with this plan of care. This note was dictated using voice recognition software and make contain errors or omissions. [facility] History I have reviewed the patient's past medical history: Yes Medical History: Reports:: Anxiety, Arrhythmia, Asthma, Coronary Artery Disease, Depression, Diabetes Mellitus Type 2, Gastroesophageal Reflux Disease(GERD), Hypertension, Migraine, Palpitations Denies:: Aneurysm, Atrial Fibrillation, Cancer, Chronic Obstructive Pulmonary Disease (COPD), Cerebrovascular Accident, Deep Vein Thrombosis, Diabetes Mellitus Type 1, Gastrointestinal Bleed, Hyperlipidemia, Internal Pacemaker, Kidney Stones, MRSA, Myocardial Infarction, Osteoporosis, Peripheral Artery Disease, Pulmonary Embolism, Re
== END ==
PROVIDERS: PCP Internal Medicine; Visit Provider Clinical Nurse Specialist Family Health
DX: Z09 Encounter for follow-up examination after completed treatment for conditions other than malignant neoplasm (principal); M51.16 Intervertebral disc disorders with radiculopathy, lumbar region
CPT/HCPCS: 99212

== ENCOUNTER → 2019-12-10 09:04 | Outpatient (CLI) | payer BC, SELFPAY ==
--- NOTE | 2019-12-10 09:11 | XR_ITS ---
PROCEDURE: XR HIP LT 2-3V W/PELVIS CLINICAL INDICATION: Hip pain Follow-up hip replacement COMPARISON: XR HIP LT 2-3V W/PELVIS from 10/14/2019 XR HIP LT 2-3V W/PELVIS from 11/11/2019 FINDINGS: S/p total hip replacement on the left with good alignment. On the AP view of the pelvis there is a subtle lucency along the iliopectineal line in the super acetabular region suggesting a nondisplaced fracture. Hyperdensity is present along the lateral and superior aspect of the hip joint as before and may be due to bony debris. Right-sided pain pump and postsurgical changes noted of the lumbar spine. IMPRESSION: Status post left hip replacement with good alignment. There does appear to be a nondisplaced fracture just superior to the acetabular component with disruption of the left iliopectineal line. Suggest CT for confirmation even though there may be a good degree of artifact in this region from the hip prosthesis. Dictated by: Hema Chen MD 12/10/2019 09:51 Electronically signed by Hema Chen MD in [place] 12/10/2019 09:51
== END ==
PROVIDERS: PCP Internal Medicine; Visit Provider Orthopaedic Surgery
DX: M16.12 Unilateral primary osteoarthritis, left hip (principal)
CPT/HCPCS: 73502

== ENCOUNTER → 2019-12-17 11:53 | Outpatient (CLI) | payer BC, SELFPAY ==
--- NOTE | 2019-12-17 11:59 | XR_ITS ---
PROCEDURE: XR HIP LT 2-3V W/PELVIS CLINICAL INDICATION: sp LT ADELFO Follow-up total hip replacement COMPARISON: XR HIP LT 2-3V W/PELVIS from 12/10/2019 FINDINGS: The status post left-sided total hip replacement. There remains good alignment. There is persistent lucency along the superior medial aspect of the acetabular component consistent with a nondisplaced fracture. There may be some callus formation developing along the medial aspect of the iliopectineal line. Calcific debris is noted along the lateral aspect of the acetabulum as before. The femoral stem has an unremarkable appearance. Pain pump noted in the right lower quadrant. Postsurgical changes of the lumbar spine. IMPRESSION: Status post total left hip replacement with good alignment. There is a nondisplaced fracture involving the superior medial aspect of the acetabulum probably not significantly changed considering the slight difference in technique Dictated by: Hema Chen MD 12/17/2019 14:46 Electronically signed by Hema Chen MD in [place] 12/17/2019 14:46
== END ==
PROVIDERS: PCP Internal Medicine; Visit Provider Orthopaedic Surgery
DX: Z09 Encounter for follow-up examination after completed treatment for conditions other than malignant neoplasm (principal)
CPT/HCPCS: 73502

== ENCOUNTER → 2019-12-21 11:04 | Outpatient (POV) | payer BC, SELFPAY ==
[2019-12-21 11:37] VITALS: BP 132/78; PULSE 75; RESP 18; O2SAT 99; BMI 31.3
--- NOTE | 2019-12-21 12:46 | HMH.PAINSOAP ---
[facility] Pain Management SOAP Note Subjective:: She is a very pleasant 59-year-old white female who presents today for follow-up after spinal cord stimulator removal and pain pump revision . Patient stitches have been removed from her incisional sites. Patient sites are clean dry intact healing well with no sign symptoms of infection. Overall patient is doing well she rates her pain a 6 out of 10 today. However this is because she fell last Friday and fractured her new hip. Patient is nonweightbearing at this time. She is continuing with her orthopedic surgeon. She does not need any changes in her pain pump today. ROS General: no recent weight change, no fever, no sleep disturbances Respiratory: no cough, no shortness of air, no recurring pulmonary infections Cardiovascular/Peripheral Vascular: No chest pain, No palpitations, no edema, no shortness of breath. Gastrointestinal: no new onset incontinence, normal bowel movements reported Genitourinary: no new onset incontinence Musculoskeletal: Hip pain Psychiatric: normal mood/ affect Neurological: [denies new onset weakness in extremities], [denies new onset balance issues] Objective:: Physical Exam General: Alert and oriented x3, no acute distress, pleasant and cooperative, [on room air] Lungs: Resps E/U, Symmetrical chest expansion, Eyes: PERRL Musculoskeletal: Flexion and extension of lumbar spine somewhat guarded secondary to pain, deep tendon reflexes normal, strength in upper and lower extremities [5/5], [abnormal gait noted] Neurological: speech clear, mesh cutter equal, no gross sensory deficits Assessment:: Degenerative disc disease lumbar spine lumbar radiculopathy and postlaminectomy syndrome Plan:: We will follow-up with the patient 3 weeks reassess her symptoms at that time she has been instructed to call the office if she has any issues prior to her next appointment. Dr. Ortiz has reviewed this note and agrees with this plan of care. This note was dictated using voice recognition software and may contain errors or omissions [facility] History I have reviewed the patient's past medical history: Yes Medical History: Reports:: Anxiety, Arrhythmia, Asthma, Coronary Artery Disease, Depression, Diabetes Mellitus Type 2, Gastroesophageal Reflux Disease(GERD), Hypertension, Migraine, Palpitations Denies:: Aneurysm, Atrial Fibrillation, Cancer, Chronic Obstructive Pulmonary Disease (COPD), Cerebrovascular Accident, Deep Vein Thrombosis, Diabetes Mellitus Type 1, Gastrointestinal Bleed, Hyperlipidemia, Internal Pacemaker, Kidney Stones, MRSA, Myocardial Infarction, Osteoporosis, Peripheral Artery Disease, Pulmonary Embolism, Renal Disease, Seizures, Supraventricular Tachycardia, Transient Ischemic Attacks (TIA), Valvular Heart Disease Comment Only: Congestive Heart Failure (diastolic dysfunction) *Have you ever received a pneumonia vaccine?: Yes *Have you received a flu vaccine this season?: Yes Other Medical History: Reports: Anemia, Arthritis, Cataracts, Fibromyalgia, Sinus Problems. Denies: Blood Transfusion Reaction, Chemotherapy, Glaucoma, Acquired Immunodeficiency Syndrome (AIDS), HIV, Hoarseness, Hormone Therapy, Hypothyroidism, Liver Disease, Osteoporosis, Radiation Therapy, Sickle Cell Disease, Thyroid Disease, Unexplained Bleeding Laterality Cases: Left: Breast Biopsy, Total Hip Replacement, Right: Arthroscopy Knee, Bilateral: Tonsillectomy, Other Other Surgeries: Yes: Appendectomy, Bariatric Surgery, Cardiac Catheterization, Cholecystectomy, Colonoscopy, Dilation and Curettage, EGD, Hysterectomy-Total, Other (spinal stimulator, pain pump). No: Pacemaker Amputation: No Fractures: No - *Social History Smoking Status: Never smoker Tobacco Type: cigarettes # Packs/Day (cigarettes): 0 #Yrs smoked (if former smoker): 0 Alcohol Intake: never Alcohol Intake Frequency:: 0-2 drinks per day Substance Use Type: denies use *Occupational Status:: other Housing: house Househ
== END ==
PROVIDERS: PCP Internal Medicine; Visit Provider Clinical Nurse Specialist Family Health
DX: M51.16 Intervertebral disc disorders with radiculopathy, lumbar region (principal); M96.1 Postlaminectomy syndrome, not elsewhere classified
CPT/HCPCS: 99212

== ENCOUNTER → 2019-12-27 10:58 | Outpatient (CLI) | payer BC, SELFPAY ==
--- NOTE | 2019-12-27 10:58 | CT_ITS ---
PROCEDURE: CT HIP LT WO CON CLINICAL HISTORY: hip pain Recent fall with left hip pain, prior surgery COMPARISON: CT HIP LT WO CON from 09/28/2019 XR HIP LT 2-3V W/PELVIS from 12/17/2019 TECHNIQUE: Axial images obtained with sagittal and coronal reformats. All CT scans at the facility use one or more dose reduction, viz: automated exposure control, ma/kV adjustment per patient size (including targeted exams where dose is matched to indication, i.e. head), or iterative reconstruction technique. FINDINGS: There has been a prior total left hip prosthesis inserted. This is in good alignment. There is also a posterior plate along the posterior aspect of the acetabulum. Significant artifact is present from these the prosthesis. There is some bony fragmentation along the anterior aspect of the acetabulum with a lucent defect measuring 2 cm. This defect was present on the pre-surgical exam. There is some bony fragmentation at this area. There is a nondisplaced fracture through the acetabular roof corresponding to the recently noted radiographic abnormality. A small bony fragment is present at this region versus extruded methylmethacrylate projecting into the pelvic area measuring approximately 12 mm. There is some ill definition of the bony cortex along the mid aspect of the acetabular cup with some cortical irregularity at the mid to lower aspect of the acetabulum. There is some thickening of the ileo psoas muscle. A low fluid collection is present in the lateral aspect of the hip measuring approximately nine cm. This is lateral to the greater trochanter. IMPRESSION: S/p total hip replacement on the left. There is a nondisplaced fracture through the superior and anterior aspect of the acetabulum with some cortical regularity also along the medial wall the acetabulum. A lucent defect is once again noted involving the anterior acetabular region with some bony fragmentation somewhat similar compared to the preoperative exam. 9 cm fluid collection is present lateral to the hip in the surgical bed and could be due to postoperative seroma/hematoma. Cannot exclude the possibility an abscess. Please correlate with clinical parameters. Dictated by: Hema Chen MD 12/28/2019 13:57 Electronically signed by Hema Chen MD in [place] 12/28/2019 13:57
== END ==
PROVIDERS: PCP Internal Medicine; Visit Provider Orthopaedic Surgery
DX: M16.12 Unilateral primary osteoarthritis, left hip (principal)
CPT/HCPCS: 73700

== ENCOUNTER → 2020-01-04 09:56 | Outpatient (CLI) | payer BC, SELFPAY ==
--- NOTE | 2020-01-04 09:56 | XR_ITS ---
PROCEDURE: XR DEXA AXIAL SKELETON CLINICAL HISTORY: annually/or every other year test COMPARISON: XR HIP LT 2-3V W/PELVIS from 12/17/2019 FINDINGS: left forearm 1/3 density is 0.629 grams/centimeters sq with a T-score of -1.1 Right femoral neck density is 0.727 grams/centimeter sq with a T-score -1.1 IMPRESSION: Osteopenia with moderate fracture risk. Treatment advised. Suggest follow-up exam in 2 years Dictated by: Hema Chen MD 01/10/2020 21:16 Electronically signed by Hema Chen MD in [facility] 01/10/2020 21:16
== END ==
PROVIDERS: PCP Internal Medicine; Visit Provider Orthopaedic Surgery
DX: M87.89 Other osteonecrosis, multiple sites (principal); M12.9 Arthropathy, unspecified
CPT/HCPCS: 77080

== ENCOUNTER → 2020-01-13 09:08 | Outpatient (POV) | payer BC, SELFPAY ==
--- NOTE | 2020-01-13 09:35 | HMH.PAINSOAP ---
[facility] Pain Management SOAP Note Subjective:: Patient is a pleasant 59-year-old white female who presents today for follow-up. Patient had intrathecal pain pump inserted in November 2019. She says she is doing well overall. She is an intrathecal pain pump home refill patient through [facility]. Patient says she is doing well with no problems. She denies any side effects to her medications. Patient is managed with hydromorphone intrathecal therapy as well as tramadol 50 mg 1 tablet p.o. 3 times daily. She denies any side effects to the medicine. Her Daniel #[id number] has been reviewed and is appropriate. The patient's urine drug screens have been appropriate. Her morphine equivalent is 15. She rates her pain a 2 out of 10 today. Review of Systems General: No recent weight changes, no fever, no sleep disturbances Respiratory: No cough, no shortness of air, no recurring pulmonary infections Cardiovascular/peripheral vascular: No chest pain, no palpitations, no edema, no shortness of breath Gastrointestinal: No new onset incontinence, normal bowel movements reported Genitourinary: No new onset incontinence Musculoskeletal: Intermittent low back pain Psychiatric: Normal mood/affect Neurological: [Denies weakness in extremities], [denies balance issues] Objective:: Physical exam General: Alert and oriented x3, no acute distress, pleasant and cooperative, [on room air] Lungs: Respirations even and unlabored, symmetrical chest expansion Eyes: PERRL Musculoskeletal: Flexion and extension of lumbar spine somewhat guarded secondary to pain, deep tendon reflexes normal, strength in upper and lower extremities [5/5], [abnormal gait noted] Neurological: Speech clear, complex manager equal, no gross sensory deficit Assessment:: Degenerative disc disease lumbar spine with lumbar radiculopathy symptoms and postlaminectomy syndrome lumbar spine Plan:: We will plan to see the patient back in the clinic in 3 months to reassess her symptoms. Overall she is doing well. Her incision is well approximated, no redness, no drainage, no edema noted to the site. Patient has been instructed to contact clinic if she has any concerns before next appointment. The patient and I specifically discussed risk factors for COVID19. These risks include, but are not limited to age greater than 60, heart or lung disease, diabetes, immunosuppression, and travel. We also discussed NSAIDs may worsen COVID19 infection or symptoms. Patient should not use NSAIDs to treat COVID19 signs or symptoms. Patient was also informed that any type of corticosteroid of any form (oral or injection) will decrease the patient's immune system response and may increase the likelihood of COVID19 infection [address] symptoms[address]. Ortiz has reviewed this note and agrees with this plan of care. This note was dictated using voice recognition software and make contain errors or omissions. [facility] History I have reviewed the patient's past medical history: Yes Medical History: Reports:: Anxiety, Arrhythmia, Asthma, Coronary Artery Disease, Depression, Diabetes Mellitus Type 2, Gastroesophageal Reflux Disease(GERD), Hypertension, Migraine, Palpitations Denies:: Aneurysm, Atrial Fibrillation, Cancer, Chronic Obstructive Pulmonary Disease (COPD), Cerebrovascular Accident, Deep Vein Thrombosis, Diabetes Mellitus Type 1, Gastrointestinal Bleed, Hyperlipidemia, Internal Pacemaker, Kidney Stones, MRSA, Myocardial Infarction, Osteoporosis, Peripheral Artery Disease, Pulmonary Embolism, Renal Disease, Seizures, Supraventricular Tachycardia, Transient Ischemic Attacks (TIA), Valvular Heart Disease Comment Only: Congestive Heart Failure (diastolic dysfunction) *Have you ever received a pneumonia vaccine?: Yes *Have you received a flu vaccine this season?: Yes Other Medical History: Reports: Anemia, Arthritis, Cataracts, Fibromyalgia, Sinus Problems. Denies: Blood Transfusion Reaction, Chemotherapy, Glaucoma, Acquired Immunodefi
[2020-01-13 09:38] VITALS: BP 126/69; PULSE 68; RESP 18; O2SAT 99; BMI 31.3
== END ==
PROVIDERS: PCP Internal Medicine; Visit Provider Clinical Nurse Specialist Family Health
DX: M51.16 Intervertebral disc disorders with radiculopathy, lumbar region (principal); M96.1 Postlaminectomy syndrome, not elsewhere classified
CPT/HCPCS: 99212

== ENCOUNTER → 2020-01-31 13:51 | Outpatient (CLI) | payer BC, SELFPAY ==
--- NOTE | 2020-01-31 13:56 | XR_ITS ---
PROCEDURE: XR HIP LT 2-3V W/PELVIS CLINICAL INDICATION: lt hip fu Follow-up hip replacement COMPARISON: XR HIP LT 2-3V W/PELVIS from 09/10/2019 XR HIP LT 2-3V W/PELVIS from 12/10/2019 XR HIP LT 2-3V W/PELVIS from 12/17/2019 FINDINGS: S/p total hip replacement on the left with good alignment. A transverse fracture noted involving the superior medial portion of the acetabulum. There is callus formation developing at this fracture site. A bony fragment is noted at the lateral aspect of the acetabulum as before IMPRESSION: S/p total hip replacement with good alignment with healing acetabular fracture Dictated by: Hema Chen MD 01/31/2020 15:59 Electronically signed by Hema Chen MD in [place] 01/31/2020 15:59
== END ==
PROVIDERS: PCP Internal Medicine; Visit Provider Orthopaedic Surgery
DX: M16.12 Unilateral primary osteoarthritis, left hip (principal)
CPT/HCPCS: 73502

== ENCOUNTER → 2020-02-09 08:58 | Outpatient (CLI) | payer BC, SELFPAY ==
--- NOTE | 2020-02-09 09:04 | MM_ITS ---
PROCEDURE: MM DIG SCREENING MAMM BI W/CAD Digital Breast Tomosynthesis Included CLINICAL INDICATION: SCREENING There is a history of breast cancer patient's mother. There has been a previous cyst aspiration and/or biopsy right breast with benign findings. COMPARISON: DMDXUAVR DIG MAMM-DX UNI ADD VIEWS-RT from 09/08/2014 DMDXUR DIG MAMM-DX UNI-RT from 03/07/2015 DMSB DIG MAMM-SCREEN ARIEL from 02/23/2016 TECHNIQUE: Standard CC and MLO images and 3D Tomosynthesis was obtained. R2 CAD reviewed. FINDINGS: Moderate diffuse and heterogenic fibroglandular densities are seen throughout both breasts. There are 2 biopsy clips near the nipple right breast. There are scattered clusters of benign-appearing microcalcifications in each breast. There is stable asymmetric glandular elements upper-outer quadrant left breast. There is no suspicious lesion and no suspicious microcalcifications. IMPRESSION: Dense and heterogenic parenchymal pattern with no suspicious lesions seen BI-RAD Category: 2 Benign Finding(s) FOLLOW-UP: 1YR 1 Year Follow-up (A letter has been sent to the patient regarding results of the study.) Dictated by: Dr. Bismark Goins MD 02/10/2020 20:[address] Bismark Goins MD in [place] 02/10/2020 20:27
== END ==
PROVIDERS: PCP Internal Medicine; Visit Provider Internal Medicine
DX: Z12.31 Encounter for screening mammogram for malignant neoplasm of breast (principal)
CPT/HCPCS: 77063; 77067

== ENCOUNTER → 2020-02-21 14:06 | Outpatient (CLI) | payer BC, SELFPAY ==
--- NOTE | 2020-02-21 14:11 | XR_ITS ---
PROCEDURE: XR HIP LT 2-3V W/PELVIS CLINICAL INDICATION: Lt hip FU Follow-up surgery COMPARISON: CR XR HIP LT 2-3V W/PELVIS from 01/31/2020 FINDINGS: Status post total left hip replacement. Previously noted fracture through the acetabular roof is somewhat less apparent consistent with healing. The calcific density along the lateral aspect of the acetabulum is once again noted. There are postsurgical changes of the lumbar spine and there is a pain pump overlying the right lower quadrant. IMPRESSION: Good alignment status post total left hip replacement with healing acetabular fracture. Dictated b Hema Chen MD 02/21/2020 14:50 Hema Chen MD in [place] 02/21/2020 14:50
[2020-02-21 16:36] LABS: Basophils % 0.3 % (0.1-2.0); Eosinophils # 0.2 K/mm3 (0.0-0.4); Eosinophils % 3.4 % (0.1-12.0); Hematocrit 34.5 % (37.0-47.0); Hemoglobin 11.6 g/dL (12.2-16.2); Lymphocytes # 1.3 K/mm3 (0.7-4.5); Lymphocytes % 24.6 % (10-50); Mean Corpuscular HGB Conc 33.7 g/dL (31.8-35.4); Mean Corpuscular Hemoglobin 31.1 pg (27.0-31.2); Mean Corpuscular Volume 92.1 fl (81-99); Monocytes # 0.4 K/mm3 (0.1-1.0); Monocytes % 7.1 % (1.7-9.3); Neutrophils # 3.3 K/mm3 (1.8-7.8); Neutrophils % 64.7 % (37.0-80.0); Platelet Count 341 K/mm3 (142-424); Red Blood Count 3.75 M/mm3 (4.20-5.40); Red Cell Distribution Width 13.2 % (11.5-17.5); White Blood Count 5.1 K/mm3 (4.8-10.8)
[2020-02-21 16:55] LABS: Chloride 99 mmol/L (98-107); Potassium 4.2 mmoL/L (3.5-5.1); Sodium 138 mmol/L (136-145)
[2020-02-21 16:58] LABS: Anion Gap 13.2 mEq/L (5-15); Blood Urea Nitrogen 18 mg/dl (7-17); Calcium 9.8 mg/dl (8.4-10.2); Carbon Dioxide 30 mmol/L (22.0-30.0); Estimated Glomerular Filt Rate 73 ml/min (>60); GFR (African American) 89 ML/MIN (>60); Glucose 109 mg/dl (74-100)
[2020-02-21 17:05] LABS: C-Reactive Protein 21.4 mg/L (0-4); Erythrocyte Sedimentation Rate 52 mm/hr (0-30)
== END ==
PROVIDERS: PCP Internal Medicine; Visit Provider Orthopaedic Surgery
DX: M16.9 Osteoarthritis of hip, unspecified (principal)
CPT/HCPCS: 36415; 73502; 80048; 85025; 85651; 86140

== ENCOUNTER → 2020-02-21 15:54 | Outpatient (CLI) | payer BC, SELFPAY | PROVIDERS: Visit Provider Orthopaedic Surgery | DX: M16.9 Osteoarthritis of hip, unspecified (principal) | CPT/HCPCS: 36415; 80048; 85025; 85651; 86140 ==

== ENCOUNTER → 2020-02-28 08:06 | Outpatient (CLI) | payer BC, SELFPAY ==
--- NOTE | 2020-02-28 08:11 | XR_ITS ---
PROCEDURE: XR HAND RT MIN 3V CLINICAL INDICATION: wrist injury Posttraumatic pain COMPARISON: CR XR WRIST RT MIN 3V from 02/28/2020 FINDINGS: There is a subtle lucency through the distal aspect of the proximal phalanx of the 4th finger. This could be related to artifact and nutrient foramen however, nondisplaced fracture is also considered. Please correlate as the patient's area of pain and tenderness. Degenerative changes are present in the fingers and thumb IMPRESSION: Possible nondisplaced fracture distal aspect proximal phalanx 4th digit Dictated by: Hema Chen MD 02/28/2020 09:08 Hema Chen MD in [place] 02/28/2020 09:08
--- NOTE | 2020-02-28 08:11 | XR_ITS ---
PROCEDURE: XR WRIST RT MIN 3V CLINICAL INDICATION: RT wrist injury In following injury COMPARISON: No exams were available for comparison FINDINGS: There is a comminuted distal radial fracture with intra-articular involvement. There is impaction of the fracture fragments with some foreshortening of the distal radius. There is dorsal displacement of the dorsal fracture fragment by 5 mm and anterior displacement of the anterior fracture fragment by 8 mm. There is widening of the scapholunate space which may indicate ligamentous injury. Other findings:None. IMPRESSION: Comminuted displaced distal radial fracture with impaction Widening of the scapholunate space suggesting ligamentous injury Dictated by: Hema Chen MD 02/28/2020 09:09 Hema Chen MD in [place] 02/28/2020 09:09
== END ==
PROVIDERS: PCP Internal Medicine; Visit Provider Orthopaedic Surgery
DX: S69.91XA Unspecified injury of right wrist, hand and finger(s), initial encounter (principal)
CPT/HCPCS: 73110; 73130

== ENCOUNTER → 2020-03-01 14:01 | Outpatient (CLI) | payer BC, SELFPAY ==
[2020-03-01 17:18] LABS: Coronavirus 19 IgG Antibody Negative (Negative); Coronavirus 19 IgM Antibody Negative (Negative)
== END ==
PROVIDERS: Visit Provider Orthopaedic Surgery
DX: Z03.818 Encounter for observation for suspected exposure to other biological agents ruled out (principal)
CPT/HCPCS: 36415; 86328

== ENCOUNTER → 2020-03-06 13:36 | Outpatient (CLI) | payer BC, SELFPAY ==
[2020-03-06 15:26] LABS: Coronavirus 19 IgG Antibody Negative (Negative); Coronavirus 19 IgM Antibody Negative (Negative)
== END ==
PROVIDERS: Visit Provider Orthopaedic Surgery
DX: Z01.818 Encounter for other preprocedural examination (principal); M25.531 Pain in right wrist
CPT/HCPCS: 36415; 86328

== ENCOUNTER 2020-03-07 06:58 | Day surgery (SDC) | payer BC, SELFPAY ==
[2020-02-29 14:48] VITALS: BMI 31.3
[2020-03-07] VITALS (16 sets, daily range): BP systolic 113–144; BP diastolic 54–85; PULSE 61–86; RESP 12–18; TEMP 22.2–36.6; O2SAT 94–100
--- NOTE | 2020-03-07 10:31 | HMH.ANESCL ---
[facility] Anesthesia Checklist - Structural Data Admitted From: Home Planned Operative Procedure/s: orif r wrist Consent for Planned Operative Procedure(s) Verified: Yes - Additional verifications Anesthesia Reactions: No Hx Blood Transfusions: Yes Blood Transfusion Reaction: No - Airway Assessment C-Spine Mobility Assessed: Yes TMJ Mobility Assessed: Yes Dentition: Poor Dentition - Neurological Assessment Level of Consciousness: Awake, Alert, Appropriate - Anesthesia Plan Anesthesia Risk discussed: Yes Anesthesia Plan: Verified ASA Class: III Anesthesia Type: General w/block [facility] History I have reviewed the patient's past medical history: Yes Medical History: Reports:: Anxiety, Arrhythmia, Asthma, Coronary Artery Disease, Depression, Diabetes Mellitus Type 2, Gall Bladder Disease, Gastroesophageal Reflux Disease(GERD), Hypertension, Migraine, Osteoporosis, Palpitations Denies:: Aneurysm, Atrial Fibrillation, Cancer, Chronic Obstructive Pulmonary Disease (COPD), Cerebrovascular Accident, Deep Vein Thrombosis, Diabetes Mellitus Type 1, Gastrointestinal Bleed, Hyperlipidemia, Internal Pacemaker, Kidney Stones, MRSA, Myocardial Infarction, Peripheral Artery Disease, Pulmonary Embolism, Renal Disease, Seizures, Supraventricular Tachycardia, Transient Ischemic Attacks (TIA), Valvular Heart Disease Comment Only: Congestive Heart Failure (diastolic dysfunction) *Have you ever received a pneumonia vaccine?: Yes *Have you received a flu vaccine this season?: Yes Other Medical History: Reports: Anemia, Arthritis, Cataracts, Fibromyalgia, Osteoporosis, Sinus Problems. Denies: Blood Transfusion Reaction, Chemotherapy, Glaucoma, Acquired Immunodeficiency Syndrome (AIDS), HIV, Hoarseness, Hormone Therapy, Hypothyroidism, Liver Disease, Radiation Therapy, Sickle Cell Disease, Thyroid Disease, Unexplained Bleeding Anesthesia experience/problems:: none Laterality Cases: Left: Breast Biopsy, Total Hip Replacement, Right: Arthroscopy Knee, Total Knee Replacement, Bilateral: Tonsillectomy, Other Other Surgeries: Yes: Appendectomy, Bariatric Surgery, Cardiac Catheterization, Cholecystectomy, Colonoscopy, Dilation and Curettage, EGD, Hysterectomy-Total, Other. No: Pacemaker Amputation: No Fractures: No - *Social History Last grade of school completed: Advanced degree Smoking Status: Never smoker Tobacco Type: cigarettes # Packs/Day (cigarettes): 0 #Yrs smoked (if former smoker): 0 Alcohol Intake: never Alcohol Intake Frequency:: 0-2 drinks per day Substance Use Type: denies use *Occupational Status:: retired Housing: house Household Members: spouse, family *Travel in the last 8 weeks: None - Psychiatric History Pschychiatric History:: Reports:: Anxiety, Depression Family Hx:: No significant family history, Diabetes, Heart Attack, Hyperlipidemia, Hypertension, Kidney Disease, Thyroid Disorder, Alcoholism, Mental illness
[2020-03-07 11:51] LABS: POC Glucose,Bedside 80 (70-110)
--- NOTE | 2020-03-07 13:15 | XR_ITS ---
PROCEDURE: XR WRIST RT 2V CLINICAL INDICATION: ORIF right wrist COMPARISON: No exams were available for comparison FINDINGS: Fluoroscopy time: 7 minutes and 13 seconds. Multiple images are submitted from the procedure. The fracture was reduced with decrease impaction of the fracture fragments. A volar bone plate was then placed with good alignment with multiple cortical screws placed. IMPRESSION: Good alignment status post ORIF distal radial fracture Dictated by: Hema Chen MD 03/07/2020 17:31 Hema Chen MD in [place] 03/07/2020 17:31
--- NOTE | 2020-03-07 14:01 | P.PN_ITS ---
[facility] Anesthesia Record Part I Intake, IV Amount: 2,400 Estimated blood loss (mL): 25 Urine output (mL): 0 Blood Pressure: 133/78 SaO2: 95 Pulse Rate: 75 Respiratory Rate: 12 Temperature: 97.5 F Patient is:: Awake, Stable Stable to PACU at:: 14:00
--- NOTE | 2020-03-07 14:22 | XR_ITS ---
PROCEDURE: XR WRIST RT MIN 3V CLINICAL INDICATION: s/p orif Surgery/ORIF COMPARISON: CR XR WRIST RT MIN 3V from 02/28/2020 FINDINGS: Volar bone plate is present with good alignment of the fracture fragments. There has been improvement in the impaction and foreshortening of the distal radial fragments. A cast is in place IMPRESSION: Good alignment status post ORIF distal radial fracture Dictated by: Hema Chen MD 03/07/2020 15:58 Hema Chen MD in [place] 03/07/2020 15:58
[2020-03-07 14:24] LABS: POC Glucose,Bedside 122 (70-110)
--- NOTE | 2020-03-07 15:25 | PC.NURSE ---
1420- rad @ bedside getting x rays
--- NOTE | 2020-03-07 22:52 | HMH.OPNOTE ---
Date of procedure: 03/07/20 Pre-op Diagnosis:: R distal radius fracture Post-op Diagnosis:: R distal radius fracture Procedure performed:: open reduction internal fixation (ORIF) R distal radius fracture Surgeon:: Lteha Pedersen MD Clinic Supervisor(s):: Jessica Calderon GEAR TECHNICIAN:: Philip Jamison Anesthesia: GETA, regional (supraclavicular nerve block) Estimated blood loss (mL): 25 Clinical Note:: 59yo right hand dominant F who sustained an injury to the R wrist on 02/23/20. She was attempting to climb into a jacuzzi tub at [facility], when the grab bar she was using ripped off the wall and she fell backwards onto her outstretched right arm. She had immediate pain and deformity of the R wrist; she was seen in a local ER where a splint was applied. She has significant swelling of this wrist but no open wounds and little bruising. No numbness or tingling in the fingers. She's never broken this wrist before or had surgery on the wrist. She underwent L ADELFO by myself on 09/29/19, which she tolerated well, but a fall 2 months post-op resulted in a small non-displaced superomedial acetabular fracture. This was treated with protected weightbearing and the patient remained NWB/TTWB x6 weeks. Her pain resolved, the fracture appeared healed, and she continued to improve since that time. She has an extensive history of lumbar spine issues and has had 2 prior lumbar spinal fusion procedures. She also has an implanted intrathecal pain pump with dilaudid. She has an appointment in the near future to follow-up with her spine surgeon regarding increasing back pain and radiculopathy. A DEXA scan was performed in December of 2019 with a T-score of -1.1. Her PCP has placed her on alendronate. Since her ADELFO in September there have been no major changes in her medical history. Labs were drawn 02/21/20 and were within normal limits. She was seen by myself in the office after her injury, on 02/28/20, and found to have too much soft tissue swelling to safely perform surgery at that time. She has been in a sugartong splint and has been elevating the arm as much as possible, with a significant decrease in swelling. I discussed treatment options with the patient, both surgical and nonsurgical. I discussed the risks and benefits of both approaches, including the risk of persistent pain, stiffness, posttraumatic arthritis and disability with nonoperative treatment, versus the risk of bleeding, infection, neurovascular damage, nonunion/malunion, persistent pain and stiffness with operative treatment. The patient vocalized understanding of the risks of both treatment courses and has elected to undergo surgical treatment at this time; informed consent was obtained. Operative findings:: fracture: R distal radius, with moderate metaphyseal comminution and intraarticular extension. There are several distal fracture fragments, including large dorsal and volar fragments seen on lateral XR, with depression of the lunate fossa, possible split down radial styloid, and a smaller fragment at the ulnar border of the radius. There is significant loss of radial height and radial inclination. There is no major volar or dorsal tilt, as the distal radius has been splint into large fragments that are displaced equally. There is widening of the scapholunate interval as well, which is thought to be chronic. implants: [employer] Geminus volar distal radius plate, 4-hole standard-width right sided plate distal fixation: 2.3mm locking, threaded pegs (7) proximal/shaft fixation: 3.5mm cortical non-locking screw x1, locking x3 Operative note:: The patient was identified in preoperative holding and the R arm signed by myself. Consent was verified with the patient and all questions answered. She was seen by anesthesia and supraclavicular nerve block administered to the R upper extremity. The patient was then transferred to the OR and placed supine on the operative table with a hand table under the R upper extremity. All bony p
--- NOTE | 2020-03-08 10:22 | HMH.ANESII ---
[facility] Anesthesia Record Part II Discharge Time: 14:59 Destination: [facility] PACU nurse assessment reviewed?: Yes Patient Condition:: Good Anesthesia Complications:: None Swallowing reflex intact?: Yes Cyanosis?: No Blood Pressure: 128/75 Pulse Rate: 68 Temperature: 97.5 F Mental Status: Confused and Disoriented Pain level:: 5 Nausea and/or vomitting:: None Intake, IV Amount: 0
[2020-03-08 10:26] VITALS: BP 128/75; PULSE 68; TEMP 36.4
== END 2020-03-07 15:45 | disposition home or self-care (01) ==
LOC: OR 06:59
PROVIDERS: PCP Internal Medicine; Visit Provider Orthopaedic Surgery
PROC: (CPT 25609; principal; 2020-03-07 08:45)
DX: S52.571A Other intraarticular fracture of lower end of right radius, initial encounter for closed fracture (principal); Y92.59 Other trade areas as the place of occurrence of the external cause; W16.332A Fall into other water striking wall causing other injury, initial encounter
CPT/HCPCS: 25609; 73100; 73110; 76000; 82962; 96374; C1713; C1776; J0670; J2405

== ENCOUNTER → 2020-03-17 13:06 | Outpatient (CLI) | payer BC, SELFPAY ==
--- NOTE | 2020-03-17 13:09 | XR_ITS ---
PROCEDURE: XR WRIST RT MIN 3V CLINICAL INDICATION: SP ORIF rt wrist, dos 03/07/2020 COMPARISON: CR XR WRIST RT MIN 3V from 02/28/2020 CR XR WRIST RT MIN 3V from 03/07/2020 FINDINGS: Status post ORIF distal radial fracture. Volar bone plate is present with multiple screws stabilizing the comminuted fracture. There is 4 mm lateral displacement of the distal radial fracture fragment. There is prominent space between the scaphoid and lunate suggesting scapholunate ligamentous injury. There is also mild prominence of the radial ulnar joint space. The splint/cast has been removed. IMPRESSION: Good alignment status post ORIF distal radial fracture with mild lateral displacement of the distal fracture fragment. Separation of the scaphoid and lunate suggesting scapholunate ligamentous instability/injury Dictated by: Hema Chen MD 03/17/2020 14:35 Hema Chen MD in [place] 03/17/2020 14:35
== END ==
PROVIDERS: PCP Internal Medicine; Visit Provider Orthopaedic Surgery
DX: S52.501A Unspecified fracture of the lower end of right radius, initial encounter for closed fracture
CPT/HCPCS: 73110

== ENCOUNTER → 2020-03-23 14:43 | Outpatient (CLI) | payer BC, SELFPAY ==
--- NOTE | 2020-03-23 14:46 | XR_ITS ---
PROCEDURE: XR WRIST RT MIN 3V CLINICAL INDICATION: s/p ORIF wrist COMPARISON: CR XR WRIST RT MIN 3V from 02/28/2020 CR XR WRIST RT MIN 3V from 03/07/2020 CR XR WRIST RT MIN 3V from 03/17/2020 FINDINGS: No change status post ORIF distal radial fracture with volar bone plate and multiple screws with good alignment. There remains mild lateral displacement of the distal radial fracture fragment and prominent scapholunate space IMPRESSION: No change status post ORIF distal radial fracture with persistent prominence of the scapholunate space Dictated by: Hema Chen MD 03/23/2020 16:51 Hema Chen MD in [place] 03/23/2020 16:51
--- NOTE | 2020-03-23 14:46 | XR_ITS ---
PROCEDURE: XR HIP LT 2-3V W/PELVIS CLINICAL INDICATION: left hip FU Follow-up fracture COMPARISON: CR XR HIP LT 2-3V W/PELVIS from 01/31/2020 CR XR HIP LT 2-3V W/PELVIS from 02/21/2020 FINDINGS: Status post total left hip replacement. The fracture of the superior aspect of the acetabulum is less apparent consistent with healing fracture. There is a pain pump present in the right hemipelvis. Hypertrophic changes are present along the left lateral acetabular region. Mild prominence of the space between the left hip acetabular cup and the acetabular bony rim not significantly changed. Prior fusion of the lower lumbar spine. IMPRESSION: Good alignment status post left hip replacement with acetabular fracture less apparent suggesting healing Dictated by: Hema Chen MD 03/23/2020 16:49 Hema Chen MD in [place] 03/23/2020 16:49
== END ==
PROVIDERS: PCP Internal Medicine; Visit Provider Orthopaedic Surgery
DX: S52.501A Unspecified fracture of the lower end of right radius, initial encounter for closed fracture (principal); M16.12 Unilateral primary osteoarthritis, left hip
CPT/HCPCS: 73110; 73502

== ENCOUNTER → 2020-03-29 11:29 | Outpatient (CLI) | payer BC, SELFPAY ==
--- NOTE | 2020-03-29 11:31 | IR_ITS ---
PROCEDURE: IR FLUORO GUIDED NEEDLE PLACE CLINICAL INDICATION: LT HIP ASPIRATION COMPARISON: No exams were available for comparison FINDINGS: Fluoroscopy time: 26 seconds Single transmission calibration engineer exam submitted from fluoro injection of the left hip show a total left hip prosthesis present with needle in place overlying the neck of the femoral component of the total hip prosthesis. IMPRESSION: Status post hip injection/aspiration under fluoro Dictated by: Hema Chen MD 03/30/2020 06:26 Hema Chen MD in [place] 03/30/2020 06:26
--- NOTE | 2020-03-29 12:44 | HMH.PROC ---
[facility] Procedure Note Procedure Note:: Procedure Note: Date of Procedure: March 29, 2020 Pre-procedure diagnosis: painful L ADELFO Post-procedure diagnosis: same Procedure: L hip aspiration under fluoroscopy Performed by: Letha Pedersen MD Customer Resource Specialist/s: none Anesthesia: local; 5cc 1% lidocaine w/o epinephrine Estimated Blood Loss: none HPI: 60yo F s/p L ADELFO 09/29/19 + ORIF R DRF 03/07/20 The patient underwent L ADELFO 09/29/19 and initially did very well. However, she sustained a fall in the first 2 months post-op, resulting in a small non-displaced superomedial acetabular fracture. This has been healing well and she had no pain after a period of protected weightbearing. However, her pain returned after another hard fall in February 2020 that produced a severely comminuted, intra-articular R distal radius fracture. This fracture was treated operatively and during the post-operative period she's complained of increasing pain in the L hip. Prior to the fall she was ambulating well and had nearly weaned off her cane. Now she's ambulating with a limp and using a cane for support. Additionally, a lucency in the inferior acetabulum has developed on XR and I felt it was important to r/o infection as a cause. She denies fevers or chills at home, no redness around or drainage from her surgical incision. Labs drawn on 02/21/20 resulted in WBC 5.1, ESR 52, CRP 21.4 (mg/L). I discussed the procedure of L hip aspiration with the patient, including the procedural steps and risks of the procedure which include: pain, swelling, infection. The patient vocalized understanding and informed consent obtained. Procedure Note: The patient presented to the radiology department and changed into a gown, exposing the affected L hip. Consent was reviewed and signed by both myself and the patient, all questions were answered. The patient was placed supine on the fluoroscopy table and the L hip exposed. The anterior groin/hip and proximal thigh were prepped with chlorhexidine. Timeout was performed. Next, the fluoro machine was brought in over the patient?s hip and a picture taken to confirm adequate visualization of the joint. I donned a pair of sterile surgical gloves; the remainder of the procedure was performed in a sterile fashion. A 20G spinal needle was held over the hip to approximate my desired entry point on the skin. Once this was established, a 25G needle was used to infiltrate injection site and estimated needle track with 5cc 1% lidocaine w/o epinephrine. Once the injection site was anesthetized, the spinal needle was advanced through the same puncture site and deeper towards the hip joint. Using fluoro, it was confirmed that the needle was advanced until it was at the level of the femoral prosthesis neck. The stylus was removed from the spinal needle a 20cc syringe attached. When I beverly back on the syringe, no fluid was aspirated. The needle was repositioned, but no fluid was withdrawn. To ensure appropriate intracapsular placement of the needle, 2cc of iodinated contrast solution was injected through the spinal needle and intraarticular placement was confirmed. Still, no fluid was obtained. 5cc of sterile saline was then injected into the hip, and withdrawn. Some fluid infiltrated the local tissue was was not withdrawn. Using this technique, approximately 6-7cc of fluid was obtained from the hip, which was dark red in color. No obvious sign of infection; no cloudiness or purulence. This fluid was placed into three separate vials in the Synovasure kit and sent for alpha defensin testing as well as the remainder of the Synovasure testing panel. The last 1cc was sent to our lab for cell count w/differential, gram stain and culture. The spinal needle was removed from the hip and a band-aid was placed over the injection site. Live fluoro was used for the procedure, taking individual snapshots as needed, and after the procedure I learned these could not be saved to PACS. I took a photo
== END ==
PROVIDERS: PCP Internal Medicine; Visit Provider Orthopaedic Surgery
DX: M25.552 Pain in left hip (principal); T84.89XA Other specified complication of internal orthopedic prosthetic devices, implants and grafts, initial encounter; M16.12 Unilateral primary osteoarthritis, left hip; Z96.642 Presence of left artificial hip joint
CPT/HCPCS: 20610; 77002; 87070; 87205; Q9967

== ENCOUNTER → 2020-04-10 07:57 | Outpatient (CLI) | payer BC, SELFPAY ==
--- NOTE | 2020-04-10 07:58 | CT_ITS ---
PROCEDURE: CT HIP LT WO CON CLINICAL HISTORY: LT hip pain left hip pain, recent fall surgery 7 months ago prior 12/27/19 COMPARISON: CT CT HIP LT WO CON from 09/28/[address] HIP LT WO CON from 12/27/2019 TECHNIQUE: Axial images obtained with sagittal and coronal reformats. All CT scans at the facility use one or more dose reduction, viz: automated exposure control, ma/kV adjustment per patient size (including targeted exams where dose is matched to indication, i.e. head), or iterative reconstruction technique. FINDINGS: There has been prior placement of a total left hip prosthesis on the left. Previously there was a fracture along the medial wall of the acetabulum.. There has been some increased separation of the fracture fragments with developing heterotopic ossification superior to the superior aspect of the fracture. The medial wall of the acetabulum is thinned. The thinning has become worse compared to the previous exam at the central aspect of the acetabular cup. There is mild prominence of the space between the acetabular cup and the bony acetabulum which has increased compared to the previous study. The spaces more prominent anteriorly and measures up to 8 mm anteriorly previously measuring approximately 5 mm. Underlying loosening of the prosthesis or infection is considered. There is extensive artifact from the bony hardware. Lobular soft tissue attenuation is present lateral to the hip and could be related to a postoperative fluid collection measuring up to 6.5 by 4.3 cm previously measuring up to 9 by 6 cm. IMPRESSION: 1. Status post total left hip prosthesis on the left. There is incomplete bony healing of the acetabular roof now with thinning of the acetabulum medially which has progressed since the previous exam. 2. The space between the acetabular cup and acetabulum has increased previously measuring 5 mm now measuring 8 mm which may be due to loosening or infection. 3. Persistent soft tissue density along the lateral aspect of the hip which could be related to residual effusion/seroma which appear smaller compared to the previous exam. Dictated by: Hema Chen MD 04/11/2020 11:31 Hema Chen MD in [facility] 04/11/2020 11:31
== END ==
PROVIDERS: PCP Internal Medicine; Visit Provider Orthopaedic Surgery
DX: M25.552 Pain in left hip (principal); Z96.642 Presence of left artificial hip joint
CPT/HCPCS: 73700

== ENCOUNTER → 2020-04-24 14:25 | Outpatient (CLI) | payer BC, SELFPAY ==
--- NOTE | 2020-04-24 14:29 | XR_ITS ---
PROCEDURE: XR WRIST RT MIN 3V CLINICAL INDICATION: s/p ORIF wrist COMPARISON: CR XR WRIST RT MIN 3V from 02/28/2020 CR XR WRIST RT MIN 3V from 03/07/2020 CR XR WRIST RT MIN 3V from 03/17/2020 CR XR WRIST RT MIN 3V from 03/23/2020 FINDINGS: Status post ORIF comminuted distal radial fracture with volar bone plate present. There has been fracture of the proximal screw within the ulnar aspect of the bone plate distally. There is some separation of the screw fragments by approximately 2 mm. One of the screws just distal to this fractured screw also has a bowed appearance. This may indicate eminent fracture. There is good alignment of the fracture fragments. There is widening of the scapholunate space. IMPRESSION: Status post ORIF of the distal radius with a fracture cortical screw and bowing of 8 additional cortical screw as described above. There is good alignment of the fracture fragments Dictated by: Hema Chen MD 04/24/2020 14:52 Hema Chen MD in [facility] 04/24/2020 14:52
== END ==
PROVIDERS: PCP Internal Medicine; Visit Provider Orthopaedic Surgery
DX: S52.501A Unspecified fracture of the lower end of right radius, initial encounter for closed fracture (principal)
CPT/HCPCS: 73110

== ENCOUNTER 2020-04-24 15:31 | Outpatient (RCR) | payer BC, SELFPAY | END 2020-04-24 16:00 | disposition home or self-care (01) | LOC: OT 15:31 | PROVIDERS: Visit Provider Orthopaedic Surgery | DX: S52.571D Other intraarticular fracture of lower end of right radius, subsequent encounter for closed fracture with routine healing (principal) | CPT/HCPCS: 97763 ==

== ENCOUNTER → 2020-05-02 07:58 | Outpatient (CLI) | payer BC, SELFPAY ==
--- NOTE | 2020-05-02 07:59 | CT_ITS ---
PROCEDURE: CT WRIST RT WO CON CLINICAL HISTORY: s/p wrist fracture 2 mm. The distal fracture portion of the screw is slightly angulated ulnarly. That screw extends into the radial ulnar joint COMPARISON: CR XR WRIST RT MIN 3V from 04/24/2020 TECHNIQUE: Axial images obtained with sagittal and coronal reformats. All CT scans at the facility use one or more dose reduction, viz: automated exposure control, ma/kV adjustment per patient size (including targeted exams where dose is matched to indication, i.e. head), or iterative reconstruction technique. FINDINGS: There has been prior ORIF of comminuted distal radial fracture. There are multiple cortical screws present within the volar bone plate. Comminuted distal radial fracture is present with good alignment. There is intra-articular extension of the fracture. There is a fracture involving a cortical screw which is the most proximal screw within the ulnar division the distal aspect of the bone plate. Fracture is by proximally 2 mm with the distal portion of the screw angulated ulnarly and extending into the radial ulnar joint space. IMPRESSION: Status post ORIF distal comminuted radial fracture as described above with fracture of 1 of the cortical screws of the distal radius as described above. The distal portion of the screw extends into the radioulnar joint space. Dictated by: Hema Chen MD 05/02/2020 12:11 Hema Chen MD in [place] 05/02/2020 12:11
== END ==
PROVIDERS: PCP Internal Medicine; Visit Provider Orthopaedic Surgery
DX: S52.501A Unspecified fracture of the lower end of right radius, initial encounter for closed fracture (principal)
CPT/HCPCS: 73200

== ENCOUNTER → 2020-05-15 13:20 | Outpatient (CLI) | payer BC, SELFPAY ==
[2020-05-15 13:28] LABS: MANUAL DIFFERENTIAL MANUAL DIFFERENTIAL (MANUAL DIFF)
[2020-05-15 14:46] LABS: Basophils % 0.4 % (0.1-2.0); Eosinophils # 0.2 K/mm3 (0.0-0.4); Eosinophils % 3.4 % (0.1-12.0); Hematocrit 35.7 % (37.0-47.0); Hemoglobin 11.2 g/dL (12.2-16.2); Lymphocytes # 1.1 K/mm3 (0.7-4.5); Lymphocytes % 25.1 % (10-50); Mean Corpuscular HGB Conc 31.3 g/dL (31.8-35.4); Mean Corpuscular Hemoglobin 30.3 pg (27.0-31.2); Mean Corpuscular Volume 96.6 fl (81-99); Mean Platelet Volume 7.5 fl (7.4-10.4); Monocytes # 0.3 K/mm3 (0.1-1.0); Monocytes % 5.9 % (1.7-9.3); Neutrophils # 2.9 K/mm3 (1.8-7.8); Neutrophils % 65.2 % (37.0-80.0); Platelet Count 325 K/mm3 (142-424); Red Blood Count 3.69 M/mm3 (4.20-5.40); Red Cell Distribution Width 13.5 % (11.5-17.5); White Blood Count 4.5 K/mm3 (4.8-10.8)
[2020-05-15 15:23] LABS: Chloride 101 mmol/L (98-107); Sodium 139 mmol/L (136-145)
[2020-05-15 15:26] LABS: Blood Urea Nitrogen 14 mg/dl (7-17); Estimated Glomerular Filt Rate 85 ml/min (>60); GFR (African American) 103 ML/MIN (>60)
[2020-05-15 15:27] LABS: Calcium 9.5 mg/dl (8.4-10.2); Carbon Dioxide 31 mmol/L (22.0-30.0); Glucose 82 mg/dl (74-100)
[2020-05-15 16:26] LABS: Coronavirus 19 IgG Antibody Negative (Negative); Coronavirus 19 IgM Antibody Negative (Negative)
[2020-05-15 16:40] LABS: Eosinophils % 3 % (0-3); Lymphocytes % 26 % (10-50); Monocytes % 3 % (2-9); Neutrophils % 68 % (42-76); Platelet Estimate Normal; RBC Morphology Normal; Total Cells Counted 100
== END ==
PROVIDERS: Visit Provider Orthopaedic Surgery
DX: Z01.818 Encounter for other preprocedural examination (principal); S52.501A Unspecified fracture of the lower end of right radius, initial encounter for closed fracture
CPT/HCPCS: 36415; 80048; 85007; 85014; 85018; 85048; 85049; 86328

== ENCOUNTER 2020-05-16 06:16 | Day surgery (SDC) | payer BC, SELFPAY ==
[2020-05-15 10:58] VITALS: BMI 31.3
[2020-05-16] VITALS (14 sets, daily range): BP systolic 96–126; BP diastolic 52–72; PULSE 69–96; RESP 16–20; TEMP 36.6–43; O2SAT 92–96
[2020-05-16 07:02] LABS: POC Glucose,Bedside 98 (70-110)
--- NOTE | 2020-05-16 07:15 | HMH.ANESCL ---
[facility] Anesthesia Checklist - Patient Identification Patient Identification: Arm Band, Verbal (Name & ) - Structural Data Admitted From: Home Planned Operative Procedure/s: Right wrist ORIF revision Consent for Planned Operative Procedure(s) Verified: Yes Verified Documents: Surgical Consent, History and Physical - NPO Status Verified Time NPO: 00:00 - Chart Verification Results Verified: CBC, BMP - Additional verifications Fingerstick Blood Glucose: 98 Anesthesia Reactions: No Hx Blood Transfusions: Yes Blood Transfusion Reaction: No - Airway Assessment C-Spine Mobility Assessed: Yes TMJ Mobility Assessed: Yes Dentition: Good Dentition (missing teeth) - Neurological Assessment Level of Consciousness: Awake, Alert, Appropriate, Follows Commands Hx Seizures: No Numbness or tingling in extremities: Yes - Anesthesia Plan Anesthesia Risk discussed: Yes Anesthesia Plan: Verified ASA Class: III Anesthesia Type: General w/block [facility] History I have reviewed the patient's past medical history: Yes Medical History: Reports:: Anxiety, Arrhythmia, Asthma, Coronary Artery Disease, Depression, Diabetes Mellitus Type 2, Gall Bladder Disease, Gastroesophageal Reflux Disease(GERD), Hypertension, Migraine, Osteoporosis, Palpitations Denies:: Aneurysm, Atrial Fibrillation, Cancer, Chronic Obstructive Pulmonary Disease (COPD), Cerebrovascular Accident, Deep Vein Thrombosis, Diabetes Mellitus Type 1, Gastrointestinal Bleed, Hyperlipidemia, Internal Pacemaker, Kidney Stones, MRSA, Myocardial Infarction, Peripheral Artery Disease, Pulmonary Embolism, Renal Disease, Seizures, Supraventricular Tachycardia, Transient Ischemic Attacks (TIA), Valvular Heart Disease Comment Only: Congestive Heart Failure (diastolic dysfunction) *Have you ever received a pneumonia vaccine?: Yes *Have you received a flu vaccine this season?: Yes Other Medical History: Reports: Anemia, Arthritis, Cataracts, Fibromyalgia, Osteoporosis, Sinus Problems. Denies: Blood Transfusion Reaction, Chemotherapy, Glaucoma, Acquired Immunodeficiency Syndrome (AIDS), HIV, Hoarseness, Hormone Therapy, Hypothyroidism, Liver Disease, Radiation Therapy, Sickle Cell Disease, Thyroid Disease, Unexplained Bleeding Comment:: obesity, chronic pain Anesthesia experience/problems:: None Laterality Cases: Left: Breast Biopsy, Total Hip Replacement, Right: Arthroscopy Knee, Total Knee Replacement, Bilateral: Tonsillectomy, Other Other Surgeries: Yes: Appendectomy, Bariatric Surgery, Cardiac Catheterization, Cholecystectomy, Colonoscopy, Dilation and Curettage, EGD, Hysterectomy-Total, Other. No: Pacemaker Amputation: No Fractures: Yes (R wrist) - *Social History Last grade of school completed: Advanced degree Smoking Status: Never smoker Tobacco Type: cigarettes # Packs/Day (cigarettes): 0 #Yrs smoked (if former smoker): 0 Alcohol Intake: never Alcohol Intake Frequency:: 0-2 drinks per day Substance Use Type: denies use *Occupational Status:: retired Housing: house Household Members: spouse, family *Travel in the last 8 weeks: None - Psychiatric History Pschychiatric History:: Reports:: Anxiety, Depression Family Hx:: Diabetes, Heart Attack, Hyperlipidemia, Hypertension, Kidney Disease, Thyroid Disorder, Alcoholism, Mental illness
--- NOTE | 2020-05-16 13:05 | HMH.ANESI ---
[facility] Anesthesia Record Part I Intake, IV Amount: 1,300 Estimated blood loss (mL): 25 Urine output (mL): 0 Blood Pressure: 126/65 SaO2: 94 Pulse Rate: 96 Respiratory Rate: 16 Temperature: 98.1 F Patient is:: Drowsy, Stable Stable to PACU at:: 13:00
--- NOTE | 2020-05-16 13:14 | XR_ITS ---
PROCEDURE: XR WRIST RT MIN 3V CLINICAL INDICATION: surgery COMPARISON: CR XR WRIST RT MIN 3V from 04/24/2020 FINDINGS: The volar bone plate is again noted the fractured screw has been replaced. Alignment remains satisfactory distal radial fracture. There is diffuse homogeneous opacity along the dorsal aspect of the distal radius suggesting probable methylmethacrylate cement. A new cast has been applied. IMPRESSION: Interval postoperative changes since the previous study 04/24/2020 Dictated by: Dr. Bismark Goins MD 05/16/2020 13:49 Dr. Bismark Gions MD in [place] 05/16/2020 13:49
[2020-05-16 13:35] LABS: POC Glucose,Bedside 147 (70-110)
--- NOTE | 2020-05-16 13:54 | SUR.PHASEI ---
1327- fsbs 147 1342- pt 2 way cathed due to pt not being able to empty bladder completely. states its causing her discomfort. she voided 200ml in bed jordan and an additional 1200ml per cath.
--- NOTE | 2020-05-16 14:26 | P.PN_ITS ---
[facility] Anesthesia Record Part II Discharge Time: 13:49 Destination: Surgical Day Care (OP Surgery) PACU nurse assessment reviewed?: Yes Patient Condition:: Good Anesthesia Complications:: None Swallowing reflex intact?: Yes Cyanosis?: No Blood Pressure: 106/53 Pulse Rate: 70 Temperature: 99.6 F Mental Status: Alert & Oriented Pain level:: 0 Nausea and/or vomitting:: None Intake, IV Amount: 0
--- NOTE | 2020-05-16 16:43 | HMH.OPNOTE ---
Date of procedure: 05/16/20 Pre-op Diagnosis:: R distal radius fracture s/p ORIF 03/07/20, fall with hardware breakage and loss of reduction Post-op Diagnosis:: same Procedure performed:: revision ORIF R distal radius fracture Surgeon:: Letha Pedersen MD Hotel Controller(s):: KASI Davis POT FISHER:: Maxwell Mckinney Anesthesia: GETA, regional (supraclavicular nerve block) Estimated blood loss (mL): 25 Clinical Note:: 60-year-old female status post ORIF right distal radius fracture performed on 03/07/2020. Postoperatively her sagittal alignment was noted to be within acceptable parameters, but the coronal alignment was shifted radially by a few millimeters, which was being monitored closely. She had been recovering well, with no pain in the wrist. However, at her follow-up on 04/24/2020 she noted some pain in the wrist and had reported a fall at home not long before that. She has had between 3 and 4 falls at home over the past few months, which have complicated her left total hip arthroplasty. She is set to undergo left ADELFO revision by Dr. Estevez at on 06/27/2020. X-rays of the right wrist on 04/24/2020 showed breakage of 3 distal screws with loss of reduction of the distal fracture fragment. I initially discussed allowing the fracture to continue healing, with later hardware removal if necessary. CT scan was performed of the wrist, which showed the 2 distal ulnar screws were clearly within the distal radial ulnar joint. A robust healing response was not seen on CT, so the decision was made to proceed with a revision ORIF at this time. I discussed the risks and benefits of revision ORIF R distal radius fracture with the patient, including but not limited to: bleeding, infection, neurovascular damage, nonunion/malunion, hardware failure, persistent pain and stiffness and need for further surgery in the future. The patient vocalized understanding provided informed consent for the procedure. She reports no new illnesses, no recent fevers or chills, no new or worsening chest pain or shortness of breath. On the day of surgery (today, 05/16/20), she reports numbness and tingling in the first 2-3 fingers of the right hand, which is new and has been present for around 1 week. Preoperative testing was within normal limits, including a negative Covid antibody test. Operative findings:: 1) all hardware removed: skeletal dynamics geminus plate + 11 screws. 4 shaft screws removed intact, 4 distal screws removed intact. 3 distal screws were broken; heads removed intact but distal portion of screw required broken screw set and use of small trephine. These were all removed intact. 2) shaft holes x4 were filled with 10cc Cerament bone void filler and allowed to fully harden 3) distal fracture fragment mobilized and reduced 4) new implants: Skeletal [employer] Geminus volar distal radius plate, 4-hole standard-width right sided plate distal fixation: 2.3mm locking, threaded pegs (7) proximal/shaft fixation: 3.5mm cortical non-locking screw x1, locking x3 Operative note:: The patient was identified in preoperative holding and the R wrist signed by myself. Consent was verified with the patient and all questions answered. She was seen by anesthesia and supraclavicular nerve block administered to the R upper extremity. The patient was then transferred to the OR and placed supine on the operative table; all bony prominences were well-padded and SCDs placed on bilateral lower extremities. 900mg clindamycin was infused and general anesthesia induced. Nonsterile tourniquet was placed on the upper R arm. The right arm was then prepped and draped in the usual sterile fashion. Timeout was performed, identifying the correct patient, correct procedure, and correct site. The procedure was begun by using a marking pen to identify and sandra the patient's previous surgical incision over the volar distal radius. The C-arm was used to confirm the site of the fracture
== END 2020-05-16 14:35 | disposition home or self-care (01) ==
LOC: OR 06:16
PROVIDERS: PCP Internal Medicine; Visit Provider Orthopaedic Surgery
PROC: (CPT 25608; principal; 2020-05-16 07:30)
DX: T84.112A Breakdown (mechanical) of internal fixation device of bone of right forearm, initial encounter (principal); W01.0XXA Fall on same level from slipping, tripping and stumbling without subsequent striking against object, initial encounter; Z91.81 History of falling; I25.10 Atherosclerotic heart disease of native coronary artery without angina pectoris; E11.9 Type 2 diabetes mellitus without complications; I10 Essential (primary) hypertension; S52.571A Other intraarticular fracture of lower end of right radius, initial encounter for closed fracture
CPT/HCPCS: 25608; 20680; 73100; 73110; 82962; 96374; C1713; C1776; J0670; J2405

== ENCOUNTER → 2020-05-26 11:10 | Outpatient (CLI) | payer BC, SELFPAY ==
--- NOTE | 2020-05-26 11:14 | XR_ITS ---
PROCEDURE: XR WRIST RT MIN 3V CLINICAL INDICATION: s/p ORIF RT wrist COMPARISON: CR XR WRIST RT MIN 3V from 05/16/2020 FINDINGS: The volar metallic plate is again noted fixated to distal radius and radial styloid by multiple threaded screws. There is no significant callus formation seen at the fracture site as yet. Alignment appears satisfactory. IMPRESSION: Post ORIF distal radius fracture as noted Dictated by: Dr. Bismark Goins MD 05/26/2020 12:11 Dr. Bismark Goins MD in [place] 05/26/2020 12:11
== END ==
PROVIDERS: PCP Internal Medicine; Visit Provider Orthopaedic Surgery
DX: S52.501A Unspecified fracture of the lower end of right radius, initial encounter for closed fracture (principal)
CPT/HCPCS: 73110

== ENCOUNTER 2020-05-28 18:01 | Emergency (ER) | payer BC, SELFPAY ==
[2020-05-28 19:01] VITALS: BP 120/69; PULSE 89; RESP 18; TEMP 37.4; O2SAT 96; BMI 32.8
[2020-05-28 19:07] VITALS: BP 120/69; PULSE 89; RESP 18; TEMP 37.4; O2SAT 96
--- NOTE | 2020-05-28 19:12 | PC.NURSE ---
Cast was removed per Dr. Pedersen. She gave a verbal order over the phone to remove cast and place sugar tong splint. Sugar tong splint applied and pt tolerated well. No reports of pain.
== END 2020-05-28 19:15 | disposition home or self-care (01) ==
LOC: UTC 18:08
PROVIDERS: Emergency Provider Nurse Practitioner; PCP Internal Medicine
DX: S52.571D Other intraarticular fracture of lower end of right radius, subsequent encounter for closed fracture with routine healing (principal)
CPT/HCPCS: 99201

== ENCOUNTER → 2020-06-19 14:27 | Outpatient (CLI) | payer BC, SELFPAY ==
--- NOTE | 2020-06-19 14:31 | XR_ITS ---
PROCEDURE: XR WRIST RT MIN 3V CLINICAL INDICATION: s/p ORIF R wrist- AP, 20 degree lateral, oblique COMPARISON: No exams were available for comparison FINDINGS: Status post ORIF distal radial fracture with volar bone plate. Fracture lines are less visible compared to the previous exam. There is good alignment. The cast has been removed. Other findings:None. IMPRESSION: Good alignment status post ORIF distal radial fracture. Dictated by: Hema Chen MD 06/19/2020 16:00 Hema Chen MD in [facility] 06/19/2020 16:00
== END ==
PROVIDERS: PCP Internal Medicine; Visit Provider Orthopaedic Surgery
DX: S52.501A Unspecified fracture of the lower end of right radius, initial encounter for closed fracture (principal)
CPT/HCPCS: 73110

== ENCOUNTER → 2020-07-31 12:40 | Outpatient (CLI) | payer BC, SELFPAY ==
--- NOTE | 2020-07-31 12:43 | XR_ITS ---
PROCEDURE: XR WRIST RT MIN 3V CLINICAL INDICATION: revision ORIF R DRF 05/16/2020 Follow-up fracture with revision COMPARISON: CR XR WRIST RT MIN 3V from 04/24/2020 CR XR WRIST RT MIN 3V from 05/16/2020 DX XR WRIST RT MIN 3V from 05/26/2020 CR XR WRIST RT MIN 3V from 06/19/2020 FINDINGS: Anterior bone plate is present stabilizing the distal radial fracture with good alignment of the fracture fragments. Fracture lines are less visible. There is widening of the scapholunate space suggesting a injury to the scapholunate ligament. There are mild osteoarthritic changes of the scapho trapezium and 1st metacarpal-carpal joint Concave lucency is noted at the distal ulna laterally and may be related to the adjacent screws within the medial aspect of the bone plate. Other findings:None. IMPRESSION: Good alignment status post ORIF distal radial fracture Widening of the scapholunate space suggesting scapholunate ligamentous injury Developing lucency along the distal ulna laterally possibly related to the adjacent screws within the radial bone plate Dictated by: Hema Chen MD 07/31/2020 14:53 Hema Chen MD in [facility] 07/31/2020 14:53
== END ==
PROVIDERS: PCP Internal Medicine; Visit Provider Orthopaedic Surgery
DX: S52.501A Unspecified fracture of the lower end of right radius, initial encounter for closed fracture (principal)
CPT/HCPCS: 73110

== ENCOUNTER → 2020-09-01 13:13 | Outpatient (CLI) | payer BC, SELFPAY ==
--- NOTE | 2020-09-01 13:16 | XR_ITS ---
PROCEDURE: XR WRIST RT MIN 3V CLINICAL INDICATION: RT distal radius COMPARISON: CR XR WRIST RT MIN 3V from 06/19/2020 FINDINGS: The metallic volar bone plate is again noted fixated by multiple threaded screws and a distal radial fracture appears to be a centrally healed. There is mild narrowing of the radiocarpal joint. There may be mild disuse osteoporosis of the carpal bones. IMPRESSION: Satisfactory ORIF distal radial fracture Dictated by: Dr. Bismark Goins MD 09/01/2020 14:53 Dr. Bismark Goins MD in [facility] 09/01/2020 14:53
== END ==
PROVIDERS: PCP Internal Medicine; Visit Provider Orthopaedic Surgery
DX: S52.501A Unspecified fracture of the lower end of right radius, initial encounter for closed fracture (principal)
CPT/HCPCS: 73110

== ENCOUNTER → 2020-09-22 09:21 | Outpatient (CLI) | payer BC, SELFPAY ==
--- NOTE | 2020-09-22 09:32 | XR_ITS ---
PROCEDURE: XR WRIST RT MIN 3V CLINICAL INDICATION: s/p RT distal radius fx Follow-up fracture COMPARISON: DX XR WRIST RT MIN 3V from 05/26/2020 CR XR WRIST RT MIN 3V from 06/19/2020 CR XR WRIST RT MIN 3V from 07/31/2020 CR XR WRIST RT MIN 3V from 09/01/2020 FINDINGS: Status post radial fracture with volar bone plate in place with good alignment. There is some minimal ossification anterior to the bone plate. Prominent callus formation dorsally. There is prominence of the scapholunate space which may be seen with ligamentous injury. IMPRESSION: Good alignment status post ORIF Dictated by: Hema Chen MD 09/22/2020 15:55 Hema Chen MD in [facility] 09/22/2020 15:55
== END ==
PROVIDERS: PCP Internal Medicine; Visit Provider Orthopaedic Surgery
DX: S52.501A Unspecified fracture of the lower end of right radius, initial encounter for closed fracture (principal)
CPT/HCPCS: 73110

== ENCOUNTER 2020-10-30 09:30 | Outpatient (RCR) | payer BC, SELFPAY | END 2020-10-30 09:35 | disposition home or self-care (01) | LOC: PT 09:30 | PROVIDERS: PCP Internal Medicine; Visit Provider Physician Assistant Surgical | DX: M25.552 Pain in left hip (principal); Z96.642 Presence of left artificial hip joint | CPT/HCPCS: 97110; 97116; 97163; 97164; 97530 ==

== ENCOUNTER → 2020-11-01 12:31 | Outpatient (CLI) | payer BC, SELFPAY ==
[2020-11-01 14:48] LABS: Coronavirus 19 IgG Antibody Positive (Negative); Coronavirus 19 IgM Antibody Negative (Negative)
== END ==
PROVIDERS: Visit Provider Orthopaedic Surgery
DX: Z01.818 Encounter for other preprocedural examination (principal); Z20.822 Contact with and (suspected) exposure to COVID-19; S52.571D Other intraarticular fracture of lower end of right radius, subsequent encounter for closed fracture with routine healing; G56.01 Carpal tunnel syndrome, right upper limb
CPT/HCPCS: 36415; 86328

== ENCOUNTER 2020-11-02 08:19 | Day surgery (SDC) | payer BC, SELFPAY ==
[2020-11-01 13:06] VITALS: BMI 32.8
[2020-11-02] VITALS (12 sets, daily range): BP systolic 115–169; BP diastolic 64–86; PULSE 76–94; RESP 16–18; TEMP 36.4–37.2; O2SAT 92–99
--- NOTE | 2020-11-02 | XR_ITS ---
PROCEDURE: XR WRIST RT 2V CLINICAL INDICATION: s/p right wrist hardware removal COMPARISON: CR XR WRIST RT MIN 3V from 06/19/2020 CR XR WRIST RT MIN 3V from 07/31/2020 CR XR WRIST RT MIN 3V from 09/01/2020 CR XR WRIST RT MIN 3V from 09/22/2020 XA XR WRIST RT 2V from 11/02/2020 FINDINGS: With fluoroscopic guidance the anterior bone plate was removed that was in the distal radius. Two postoperative views are obtained showing a splint in place anteriorly with lucent changes in the distal radius from the multiple screws along with mottled density of the distal radius from the healing fracture. There is good alignment with no acute fracture apparent. IMPRESSION: Status post hardware removal with good alignment Dictated by: Hema Chen MD 11/02/2020 14:12 Hema Chen MD in [facility] 11/02/2020 14:12
--- NOTE | 2020-11-02 09:01 | P.PN_ITS ---
[facility] Anesthesia Checklist - Patient Identification Patient Identification: Arm Band - Structural Data Admitted From: Home Planned Operative Procedure/s: Carpal tunnel release Consent for Planned Operative Procedure(s) Verified: Yes - NPO Status Verified Time NPO: 00:00 - Additional verifications Anesthesia Reactions: No Hx Blood Transfusions: Yes Blood Transfusion Reaction: No - Airway Assessment C-Spine Mobility Assessed: Yes TMJ Mobility Assessed: Yes Dentition: Good Dentition (MIssing, decay present) - Neurological Assessment Level of Consciousness: Awake, Alert Hx Seizures: No Numbness or tingling in extremities: Yes - Anesthesia Plan Anesthesia Risk discussed: Yes Anesthesia Plan: Verified ASA Class: II Anesthesia Type: MAC w/Block [facility] History I have reviewed the patient's past medical history: Yes Medical History: Reports:: Anxiety, Arrhythmia, Coronary Artery Disease, Depression, Diabetes Mellitus Type 2 (diet control), Gall Bladder Disease, Gastroesophageal Reflux Disease(GERD), Hypertension, Migraine, Osteoporosis, Palpitations Denies:: Aneurysm, Atrial Fibrillation, Cancer, Chronic Obstructive Pulmonary Disease (COPD), Cerebrovascular Accident, Deep Vein Thrombosis, Diabetes Mellitus Type 1, Gastrointestinal Bleed, Hyperlipidemia, Internal Pacemaker, Kidney Stones, MRSA, Myocardial Infarction, Peripheral Artery Disease, Pulmonary Embolism, Renal Disease, Seizures, Supraventricular Tachycardia, Transient Ischemic Attacks (TIA), Valvular Heart Disease Comment Only: Congestive Heart Failure (diastolic dysfunction) *Have you ever received a pneumonia vaccine?: Yes *Have you received a flu vaccine this season?: Yes Other Medical History: Reports: Anemia, Arthritis, Cataracts, Fibromyalgia, Osteoporosis, Sinus Problems. Denies: Blood Transfusion Reaction, Chemotherapy, Glaucoma, Acquired Immunodeficiency Syndrome (AIDS), HIV, Hoarseness, Hormone Therapy, Hypothyroidism, Liver Disease, Radiation Therapy, Sickle Cell Disease, Thyroid Disease, Unexplained Bleeding Anesthesia experience/problems:: None Laterality Cases: Left: Breast Biopsy, Total Hip Replacement, Right: Arthroscopy Knee, Bilateral: Cataract, Tonsillectomy, Other Other Surgeries: Yes: Appendectomy, Bariatric Surgery, Cardiac Catheterization, Cholecystectomy, Colonoscopy, Dilation and Curettage, EGD, Hysterectomy-Total, Other. No: Pacemaker Amputation: No Fractures: Yes (R wrist) - *Social History Last grade of school completed: Advanced degree Smoking Status: Never smoker Tobacco Type: cigarettes # Packs/Day (cigarettes): 0 #Yrs smoked (if former smoker): 0 Alcohol Intake: never Alcohol Intake Frequency:: 0-2 drinks per day Substance Use Type: denies use *Occupational Status:: retired Housing: house Household Members: spouse, family *Travel in the last 8 weeks: None - Psychiatric History Pschychiatric History:: Reports:: Anxiety, Depression Family Hx:: Coronary Artery Disease, Diabetes, Other
[2020-11-02 09:05] LABS: POC Glucose,Bedside 121 (70-110)
--- NOTE | 2020-11-02 12:18 | SUR.OPER ---
12:20 Family updated at this time
--- NOTE | 2020-11-02 13:25 | HMH.ANESI ---
[facility] Anesthesia Record Part I Intake, IV Amount: 1,000 Estimated blood loss (mL): 25 Urine output (mL): 0 Blood Pressure: 115/64 SaO2: 92 Pulse Rate: 86 Respiratory Rate: 16 Temperature: 98.9 F Patient is:: Drowsy, Stable Stable to PACU at:: 13:15
[2020-11-02 13:34] LABS: POC Glucose,Bedside 108 (70-110)
--- NOTE | 2020-11-02 14:37 | SUR.PHASEII ---
CARE TRANSFERRED TO Mario GOOD RN
--- NOTE | 2020-11-02 15:29 | HMH.OPNOTE ---
Date of procedure: 11/02/20 Pre-op Diagnosis:: 1) painful hardware R wrist; s/p ORIF distal radius fracture 2) carpal tunnel syndrome RUE Post-op Diagnosis:: 1) painful hardware R wrist; s/p ORIF distal radius fracture 2) carpal tunnel syndrome RUE Procedure performed:: 1) removal of hardware R wrist 2) carpal tunnel release R wrist with neurolysis and augmentation with collagen nerve wrap Surgeon:: Letha Pedersen MD Clinical Research Analyst(s):: KASI Davis SUPERVISOR TAN ROOM:: Aashish Murray Anesthesia: GETA, regional (supraclavicular nerve block), local (20cc 0.5% marcaine) Estimated blood loss (mL): 25 Clinical Note:: 60-year-old female s/p ORIF right distal radius fracture performed on 03/07/2020. Postoperatively she had some loss of reduction further complicated by a fall and hardware breakage. Revision ORIF was performed 05/16/2020. Since then she has healed well, but has reported discomfort over the ulnar side of the wrist, predominantly around the DRUJ and exacerbated with wrist motion and forearm pronation/supination. She began to report numbness and tingling during this recovery period as well. 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 I discussed treatment options with the patient, who is interested in surgical intervention at this time if it will alleviate her symptoms. Her pain and numbness/tingling are causing her to frequently dropped objects and are limiting her ability to fully recover with regards to her left total hip. I discussed the procedure, which would entail removal of hardware from the right wrist with carpal tunnel release. I also discussed the possibility of scar tissue entrapment of the median nerve and possible need for neurolysis, at which point I would recommend a collagen nerve wrap to help the nerve heal and prevent further scar adhesion. I discussed the risks of the procedure, including but not limited to: bleeding, infection, repeat fracture of the distal radius, neurovascular injury, persistent pain and/or stiffness of the wrist, and need for further surgery in the future. The patient vocalized understanding and provided informed consent for the procedure. Operative findings:: removed: [employer] Geminus volar distal radius plate, 4-hole standard-width right sided plate distal fixation: 2.3mm locking, threaded pegs (7) proximal/shaft fixation: 3.5mm cortical non-locking screw x1, locking x3 implanted: [place] [employer] collagen wrap (type I collagen) size: 12mm x 2.5cm LOT #[id number] exp 04/12/2022 Operative note:: The patient was identified in preoperative holding and the R wrist signed by myself. Consent was verified with the patient and all questions answered. She was seen by anesthesia and supraclavicular nerve block administered to the R upper extremity. The patient was then transferred to the OR and placed supine on the operative table; all bony prominences were well-padded and SCDs placed on bilateral lower extremities. 900mg clindamycin was infused and general anesthesia induced. Nonsterile tourniquet was placed on the upper R arm. The right arm was then prepped and draped in the usual sterile fashion. Timeout was performed, identifying the correct patient, correct procedure, and correct site. The procedure was begun by using a marking pen to identify and sandra the patient's previous surgical incision over the volar distal radius. The C-arm was used to confirm the site of the fracture and presence of indwelling hardware in the R distal radius. Esmarch was used to exsanguinate the arm and tourniquet inflated to 250 mmHg. Incision was made with a sterile 15 blade, using the entire extent of the previous incision. Subcutaneous tissue was bluntly dissected with tenotomy scissors. There was abundant scar tissue due to two prior procedures. Care was taken to move slowly, identifying all major structures and carefull
--- NOTE | 2020-11-03 11:25 | HMH.ANESII ---
[facility] Anesthesia Record Part II Discharge Time: 14:12 Destination: Surgical Day Care (OP Surgery) PACU nurse assessment reviewed?: Yes Patient Condition:: Good Anesthesia Complications:: None Swallowing reflex intact?: Yes Cyanosis?: No Blood Pressure: 128/71 Pulse Rate: 81 Temperature: 98.9 F Mental Status: Alert & Oriented Pain level:: 0 Nausea and/or vomitting:: None Intake, IV Amount: 0
[2020-11-03 11:27] VITALS: BP 128/71; PULSE 81; TEMP 37.2
== END 2020-11-02 14:48 | disposition home or self-care (01) ==
LOC: OR 08:20
PROVIDERS: PCP Internal Medicine; Visit Provider Orthopaedic Surgery
PROC: (CPT 20680; principal; 2020-11-02 09:45)
DX: T84.84XA Pain due to internal orthopedic prosthetic devices, implants and grafts, initial encounter (principal); G56.01 Carpal tunnel syndrome, right upper limb; S52.571D Other intraarticular fracture of lower end of right radius, subsequent encounter for closed fracture with routine healing; E11.9 Type 2 diabetes mellitus without complications; G89.28 Other chronic postprocedural pain; Z47.2 Encounter for removal of internal fixation device
CPT/HCPCS: 20680; 64721; 64727; 73100; 76000; 82962; 96374; C9361; J0131; J2405

== ENCOUNTER → 2020-11-17 10:18 | Outpatient (CLI) | payer BC, SELFPAY ==
--- NOTE | 2020-11-17 10:20 | XR_ITS ---
PROCEDURE: XR WRIST RT 2V CLINICAL INDICATION: s/p hardware removal Follow-up hardware removal COMPARISON: CR XR WRIST RT MIN 3V from 07/31/2020 CR XR WRIST RT MIN 3V from 09/01/2020 CR XR WRIST RT MIN 3V from 09/22/2020 CR XR WRIST RT 2V from 11/02/2020 FINDINGS: There has been removal the volar bone plate at the distal radius. Lucencies are present from the screw tracks as before. The splint has been removed. Sclerotic changes are present involving the distal radius. There is widening of the scapho lunate joint space suggesting ligamentous injury. The distal aspect of the ulna abuts the proximal aspect of the lunate with osteoarthritic change at that region. Cortical regularity involves the distal ulna similar to multiple previous exams. IMPRESSION: Good alignment status post hardware removal with degenerative changes and widening of the scapholunate joint space suggesting ligamentous injury Dictated by: Hema Chen MD 01/10/2021 13:25 Hema Chen MD in OV 01/10/2021 13:25
== END ==
PROVIDERS: PCP Internal Medicine; Visit Provider Orthopaedic Surgery
DX: Z98.890 Other specified postprocedural states (principal); M25.532 Pain in left wrist
CPT/HCPCS: 73100

== ENCOUNTER → 2020-11-20 14:32 | Outpatient (CLI) | payer BC, SELFPAY | PROVIDERS: Visit Provider Ophthalmology | DX: Z20.822 Contact with and (suspected) exposure to COVID-19 (principal) | CPT/HCPCS: U0003 ==

== ENCOUNTER 2020-11-21 09:14 | Day surgery (SDC) | payer BC, SELFPAY ==
[2020-11-20 13:38] VITALS: BMI 32.8
[2020-11-21 09:36] VITALS: BP 112/76; PULSE 69; RESP 18; TEMP 37; O2SAT 98
[2020-11-21 10:41] VITALS: BP 106/65; PULSE 60; RESP 18; TEMP 36.6; O2SAT 100
== END 2020-11-21 10:45 | disposition home or self-care (01) ==
LOC: OUTP 09:14
PROVIDERS: PCP Internal Medicine; Visit Provider Ophthalmology
PROC: (CPT 66821; principal; 2020-11-21 09:30)
DX: H26.493 Other secondary cataract, bilateral (principal); Z96.1 Presence of intraocular lens; H02.834 Dermatochalasis of left upper eyelid; H02.831 Dermatochalasis of right upper eyelid; Z88.5 Allergy status to narcotic agent; Z88.0 Allergy status to penicillin; Z91.048 Other nonmedicinal substance allergy status; E11.9 Type 2 diabetes mellitus without complications; Z83.3 Family history of diabetes mellitus; Z80.9 Family history of malignant neoplasm, unspecified; M19.90 Unspecified osteoarthritis, unspecified site; K21.9 Gastro-esophageal reflux disease without esophagitis
CPT/HCPCS: 66821

== ENCOUNTER 2021-01-18 02:46 | Emergency (ER) | payer BC, SELFPAY ==
[2021-01-18 02:45] VITALS: BP 159/92; PULSE 68; RESP 22; TEMP 36.8; O2SAT 100; BMI 32.8
--- NOTE | 2021-01-18 02:50 | HMH.EDGENADL ---
ED Disposition Clinical Impression: Derangement of sacroiliac joint Fracture acetabulum-closed Qualifiers: Encounter type: initial encounter Sublocation of acetabulum: unspecified portion of acetabulum Fracture alignment: displaced Laterality: left Qualified Code(s): S32.402A - Unspecified fracture of left acetabulum, initial encounter for closed fracture Disposition: Xfer Short-Term Hosp Condition on Discharge: Fair Referrals: Provider,Referral, MD [Referring] - Forms: Transfer Record - ED - Critical Care Critical Care Time: No Attestation: On , the high probability of a clinically significant, sudden or life threatening deterioration of the following system(s) required my full and direct attention, intervention and personal management. The time I documented below is in addition to time spent performing reported procedures but includes the following listed in this critical care notation. Medical Decision Making - Medical Records Medical records reviewed: Yes: I reviewed the patient's medical records. MR Comment: Reviewed [facility] operative report via portal. 06/27/2020 had acetabular component revised and anterior buttress. Dr. Estevez. - Daniel Inquiry Pt receiving controlled substance: Yes Daniel was queried for this patient: Yes Risks and benefits of using a controlled substance: were not discussed with pt by me Vital Signs: 01/18/21 02:45 01/18/21 03:00 01/18/21 03:30 Temperature 98.2 F Temperature Source Oral Pulse Rate 62 66 Pulse Rate [Right] 68 Respiratory Rate 22 Blood Pressure 161/97 H 135/88 Blood Pressure [Right Arm] 159/92 H Blood Pressure Mean [Right Arm] 114 02 Sat by Pulse Oximetry 100 100 100 Oxygen Delivery Method Room Air Room Air Room Air 01/18/21 04:01 Temperature Temperature Source Pulse Rate 67 Pulse Rate [Right] Respiratory Rate Blood Pressure 121/63 Blood Pressure [Right Arm] Blood Pressure Mean [Right Arm] 02 Sat by Pulse Oximetry 99 Oxygen Delivery Method - Lab Data Lab Results 01/18/21 02:48: WBC 7.8, RBC 3.34 L, Hgb 10.1 L, Hct 30.6 L, MCV 91.4, MCH 30.1, MCHC 33.0, RDW 15.2, Plt Count 318, MPV 7.6, Neut % (Auto) 74.6, Lymph % (Auto) 16.4, [place] % (Auto) 5.7, Eos % (Auto) 3.0, Baso % (Auto) 0.3, Neut # (Auto) 5.8, Lymph # (Auto) 1.3, [place] # (Auto) 0.4, Eos # (Auto) 0.2, Baso # (Auto) 0.0 01/18/21 02:48: Sodium 140, Potassium 4.4, Chloride 104, Carbon Dioxide 28, Anion Gap 12.4, BUN 23 H, Creatinine 1.00, Estimated Creat Clear 90, Estimated GFR 57 L, Est GFR ( Amer) 68, Glucose 138 H, Calcium 8.8 Result diagrams: 01/18/21 02:48 01/18/21 02:48 Orders (Tests/Meds): ED MEDICATIONS Discontinued Medications Generic Name Dose Route Start Last Admin Trade Name Alessandro PRN Reason Stop Dose Admin Hydromorphone HCl 1 mg 01/18/21 02:52 01/18/21 02:55 Hydromorphone 2mg/Ml Syringe IV 01/18/21 02:53 1 mg ONCE ONE Administration Ondansetron HCl 4 mg 01/18/21 02:53 01/18/21 02:55 Ondansetron 4mg/2ml Vial IV 01/18/21 02:54 4 mg ONCE ONE Administration - Radiology Data #1 Image(s): Hip Image Reviewed: Yes I reviewed the patient's radiology image, Yes I have reviewed radiologist's interpretation PROCEDURE INFORMATION: Exam: XR Left Hip Exam date and time: 01/18/2021 2:53 AM Age: 60 years old Clinical indication: Pelvic pain; Prior surgery; Surgery date: 6+ months; Surgery type: Left hip pain pump; Patient HX: PT was sitting for long period of time yesterday and when tried to move she is in a lot of pain now TECHNIQUE: Imaging protocol: XR Left hip. Views: 2 or 3 views hip with pelvis when performed. COMPARISON: CT HIP LT WO CON 04/10/2020 8:04 AM FINDINGS: Bones/joints: Left total hip arthroplasty identified with satisfactory alignment. Questionable lucency involving the left acetabulum such that recent a recent fracture is not excluded. Questionable diastasis at
--- NOTE | 2021-01-18 02:53 | XR_ITS ---
PROCEDURE INFORMATION: Exam: XR Left Hip Exam date and time: 01/18/2021 2:53 AM Age: 60 years old Clinical indication: Pelvic pain; Prior surgery; Surgery date: 6+ months; Surgery type: Left hip pain pump; Patient HX: PT was sitting for long period of time yesterday and when tried to move she is in a lot of pain now TECHNIQUE: Imaging protocol: XR Left hip. Views: 2 or 3 views hip with pelvis when performed. COMPARISON: CT HIP LT WO CON 04/10/2020 8:04 AM FINDINGS: Bones/joints: Left total hip arthroplasty identified with satisfactory alignment. Questionable lucency involving the left acetabulum such that recent a recent fracture is not excluded. Questionable diastasis at the left SI joint. No other unusual lytic or sclerotic lesions of bone. Posterior osteometallic fusion involving the lumbar spine without hardware complications. Soft tissues: Soft tissues are otherwise unremarkable. Gastrointestinal tract: Stool and gas throughout the colon. IMPRESSION: Questionable lucency involving the left acetabulum such that fracture is not excluded. Questionable diastasis at the left SI joint. Recommend CT for further investigation.
[2021-01-18 03:00] VITALS: BP 161/97; PULSE 62; O2SAT 100
[2021-01-18 03:03] LABS: Basophils % 0.3 % (0.1-2.0); Chloride 104 mmol/L (98-107); Eosinophils # 0.2 K/mm3 (0.0-0.4); Hematocrit 30.6 % (37.0-47.0); Hemoglobin 10.1 g/dL (12.2-16.2); Lymphocytes # 1.3 K/mm3 (0.7-4.5); Lymphocytes % 16.4 % (10-50); Mean Corpuscular Hemoglobin 30.1 pg (27.0-31.2); Mean Corpuscular Volume 91.4 fl (81-99); Mean Platelet Volume 7.6 fl (7.4-10.4); Monocytes # 0.4 K/mm3 (0.1-1.0); Monocytes % 5.7 % (1.7-9.3); Neutrophils # 5.8 K/mm3 (1.8-7.8); Neutrophils % 74.6 % (37.0-80.0); Platelet Count 318 K/mm3 (142-424); Red Blood Count 3.34 M/mm3 (4.20-5.40); Red Cell Distribution Width 15.2 % (11.5-17.5); Sodium 140 mmol/L (136-145); White Blood Count 7.8 K/mm3 (4.8-10.8)
[2021-01-18 03:04] LABS: Potassium 4.4 mmoL/L (3.5-5.1)
[2021-01-18 03:06] LABS: Blood Urea Nitrogen 23 mg/dl (7-17); Creatinine Clearance Estimated 90 mL/min (50-200); Estimated Glomerular Filt Rate 57 ml/min (>60); GFR (African American) 68 ML/MIN (>60)
[2021-01-18 03:07] LABS: Anion Gap 12.4 mEq/L (5-15); Calcium 8.8 mg/dl (8.4-10.2); Carbon Dioxide 28 mmol/L (22.0-30.0); Glucose 138 mg/dl (74-100)
[2021-01-18 03:30] VITALS: BP 135/88; PULSE 66; O2SAT 100
--- NOTE | 2021-01-18 03:38 | CT_ITS ---
PROCEDURE INFORMATION: Exam: CT Left Lower Extremity Without Contrast, Hip Exam date and time: 01/18/2021 3:38 AM Age: 60 years old Clinical indication: Left; Prior surgery; Surgery date: 6+ months; Surgery type: Hip pin; Patient HX: PT was sitting in recliner for long period time and when tried to get up was in a lot of pain; Additional info: Poss FX acetabulum TECHNIQUE: Imaging protocol: CT of the Left lower extremity without contrast was performed. Exam focused on the hip. Radiation optimization: All CT scans at this facility use at least one of these dose optimization techniques: automated exposure control; mA and/or kV adjustment per patient size (includes targeted exams where dose is matched to clinical indication); or iterative reconstruction. COMPARISON: CT HIP LT WO CON 04/10/2020 8:04 AM FINDINGS: Bones/joints: Diastasis involving the left SI joint. Incompletely healed a displaced recent of the left acetabulum. Diffuse osteopenia. Degenerative changes of the visualized lumbar spine. No unusual lytic or sclerotic lesions of bone. Soft tissues: Enlarged left psoas muscle and iliacus muscle. IMPRESSION: 1. Incompletely healed partially displaced recent fracture of left acetabulum. Abnormal diastasis at the left SI joint. 2. Enlarged left psoas and iliacus muscles may represent edema, inflammation or hemorrhage. No organized fluid collections are seen.
--- NOTE | 2021-01-18 03:57 | PC.NURSE ---
[employer] on standby
[2021-01-18 04:01] VITALS: BP 121/63; PULSE 67; O2SAT 99
--- NOTE | 2021-01-18 04:46 | PC.NURSE ---
[facility]
--- NOTE | 2021-01-18 04:49 | PC.NURSE ---
Dr. Amato [facility]
--- NOTE | 2021-01-18 04:59 | PC.NURSE ---
Dr. Martin has accepted pt, requested 2nd PIV
[2021-01-18 05:00] VITALS: BP 122/73; PULSE 74; O2SAT 96
[2021-01-18 05:42] VITALS: BP 132/71; PULSE 73; RESP 16; TEMP 36.9; O2SAT 99
== END 2021-01-18 05:56 | disposition short-term general hospital (02) ==
PROVIDERS: Emergency Provider Emergency Medicine; PCP Internal Medicine
DX: S32.402A Unspecified fracture of left acetabulum, initial encounter for closed fracture (principal); M24.9 Joint derangement, unspecified; F41.8 Other specified anxiety disorders; I25.10 Atherosclerotic heart disease of native coronary artery without angina pectoris; K21.9 Gastro-esophageal reflux disease without esophagitis; I10 Essential (primary) hypertension; M81.0 Age-related osteoporosis without current pathological fracture; Z79.899 Other long term (current) drug therapy
CPT/HCPCS: 73502; 73700; 80048; 85025; 96374; 96375; 96376; 99283; 99284; J2405

== ENCOUNTER 2021-01-19 09:00 | Outpatient (RCR) | payer BC, SELFPAY | END 2021-01-19 09:05 | disposition home or self-care (01) | LOC: PT 09:00 | PROVIDERS: Visit Provider Physician Assistant Surgical | DX: M25.552 Pain in left hip (principal); Z96.642 Presence of left artificial hip joint | CPT/HCPCS: 97010; 97110; 97116; 97140; 97163; 97164; 97530 ==

== ENCOUNTER → 2021-04-10 11:09 | Outpatient (CLI) | payer BC, SELFPAY ==
[2021-04-10 13:25] LABS: Basophils % 0.4 % (0.1-2.0); Eosinophils # 0.2 K/mm3 (0.0-0.4); Eosinophils % 3.4 % (0.1-12.0); Hematocrit 34.5 % (37.0-47.0); Hemoglobin 10.5 g/dL (12.2-16.2); Lymphocytes # 1.4 K/mm3 (0.7-4.5); Mean Corpuscular HGB Conc 30.3 g/dL (31.8-35.4); Mean Corpuscular Hemoglobin 28.3 pg (27.0-31.2); Mean Corpuscular Volume 93.4 fl (81-99); Mean Platelet Volume 8.3 fl (7.4-10.4); Monocytes # 0.4 K/mm3 (0.1-1.0); Monocytes % 8.2 % (1.7-9.3); Neutrophils # 2.4 K/mm3 (1.8-7.8); Neutrophils % 56.1 % (37.0-80.0); Platelet Count 359 K/mm3 (142-424); Red Cell Distribution Width 15.4 % (11.5-17.5); White Blood Count 4.3 K/mm3 (4.8-10.8)
[2021-04-10 14:48] LABS: Chloride 102 mmol/L (98-107); Potassium 4.2 mmoL/L (3.5-5.1); Sodium 141 mmol/L (136-145)
[2021-04-10 14:51] LABS: Alanine Aminotransferase 12 U/L (12-78); Albumin Level 3.8 g/dl (3.5-5.0); Albumin/Globulin Ratio 1.4 (1.1-1.8); Alkaline Phosphatase 90 U/L (38-126); Anion Gap 12.2 mEq/L (5-15); Aspartate Amino Transferase 28 U/L (14-36); Bilirubin,Total 0.2 mg/dl (0.2-1.3); Blood Urea Nitrogen 10 mg/dl (7-17); Carbon Dioxide 31 mmol/L (22.0-30.0); Estimated Glomerular Filt Rate 125 ml/min (>60); GFR (African American) 152 ML/MIN (>60); Globulin 2.8 g/dL (1.3-3.2); Glucose 93 mg/dl (74-100); Total Protein,Serum 6.6 g/dl (6.3-8.2)
== END ==
PROVIDERS: Internal Medicine; Visit Provider Student in an Organized Health Care Education/Training Program
DX: Z01.812 Encounter for preprocedural laboratory examination (principal); Z20.822 Contact with and (suspected) exposure to COVID-19
CPT/HCPCS: 80053; 85025; C9803; U0003; U0005

== ENCOUNTER → 2021-04-30 11:57 | Outpatient (CLI) | payer BC, SELFPAY ==
[2021-04-30 12:13] LABS: Basophils % 0.4 % (0.1-2.0); Eosinophils # 0.1 K/mm3 (0.0-0.4); Eosinophils % 3.1 % (0.1-12.0); Hematocrit 37.4 % (37.0-47.0); Hemoglobin 11.6 g/dL (12.2-16.2); Lymphocytes # 1.2 K/mm3 (0.7-4.5); Mean Corpuscular HGB Conc 30.9 g/dL (31.8-35.4); Mean Corpuscular Hemoglobin 28.4 pg (27.0-31.2); Mean Corpuscular Volume 91.9 fl (81-99); Mean Platelet Volume 7.6 fl (7.4-10.4); Monocytes # 0.4 K/mm3 (0.1-1.0); Monocytes % 10.1 % (1.7-9.3); Neutrophils # 2.5 K/mm3 (1.8-7.8); Neutrophils % 58.4 % (37.0-80.0); Platelet Count 328 K/mm3 (142-424); Red Blood Count 4.07 M/mm3 (4.20-5.40); Red Cell Distribution Width 15.1 % (11.5-17.5); White Blood Count 4.2 K/mm3 (4.8-10.8)
== END ==
PROVIDERS: Visit Provider Internal Medicine
DX: D50.9 Iron deficiency anemia, unspecified (principal)
CPT/HCPCS: 36415; 85025

== ENCOUNTER → 2021-05-02 17:37 | Outpatient (CLI) | payer BC, SELFPAY | PROVIDERS: PCP Internal Medicine; Visit Provider Nurse Practitioner | DX: Z20.822 Contact with and (suspected) exposure to COVID-19 (principal) | CPT/HCPCS: C9803; U0003; U0005 ==

== ENCOUNTER → 2021-05-29 08:42 | Outpatient (POV) | payer BC, SELFPAY ==
--- NOTE | 2021-05-29 08:46 | HMH.PAINSOAP ---
[facility] Pain Management SOAP Note Subjective:: Patient is a 61 year old white female who presents via phone telehealth visit today for routine follow up. She is a home refill patient through [facility] [employer] [facility] long you have had to go throughpany. Patient was recently in the hospital for over 60 days for sepsis of hip joint following surgery. She also reports to have had a fall and fracture of wrist. She will be undergoing fusion of wrist in the upcoming months. She reports that she has had multiple surgeries to her wrist and hip over the last year. She has been homebound much of the last year. She says the intrathecal pump gives her significant relief to her low back. She is not having any side effects at this time. She would like an increase in her intrathecal therapy. She says that her home [facility] nurse will be contacting Dr. Ortiz for medication adjustment. She does rate her pain a 7/10 at this time. She does take tramadol 50 mg 1 tablet p.o. 3 times daily, however, of note she has not had a refill from our office with tramadol since January 02, 2021. Patient also, per her Elaine report, takes Ambien 10 mg as needed, gabapentin 800 mg 1 tablet p.o. 4 times daily, as well as lorazepam [address] De La Torre has been prescribing the patient's tramadol and most recently oxycodone. Patient says she has no longer taking oxycodone, as this was given to her acutely postoperative of her surgeries. Review of Systems General: No recent weight changes, no fever, no sleep disturbances Respiratory: No cough, no shortness of air, no recurring pulmonary infections Cardiovascular/peripheral vascular: No chest pain, no palpitations, no edema, no shortness of breath Gastrointestinal: No new onset incontinence, normal bowel movements reported Genitourinary: No new onset incontinence Musculoskeletal: Chronic low back pain, wrist pain, hip pain Psychiatric: [Normal mood/affect] Neurological: [Denies weakness in extremities], [denies balance issues] Objective:: Physical exam General: Alert and oriented x3, no acute distress, pleasant and cooperative Assessment:: Degenerative disc disease of lumbar spine with lumbar radiculopathy symptoms, postlaminectomy syndrome lumbar spine, hip pain, wrist pain Plan:: Patient is a home [facility] refill patient. She does have her home refill nurse discussing medication dosing with Dr. Ortiz. She has asked for tramadol today. I do have concern prescribing patient tramadol with lorazepam, Ambien and gabapentin at this time along with her intrathecal dosing at this time. I will defer to Dr. Ortiz to make the determination if the patient should continue tramadol. We will follow-up with patient in 6 months or before if needed. Risks and benefits of the medication have been explained in detail to the patient. The patient does understand the risk of dependence on the medication when given over a prolonged period. Patient has been advised of risks of oversedation with the prescribed medication. Narcan has been offered to the paitent in the event of oversedation. Patient has been advised that a family member should also be educated regarding administration of Narcan. The patient has been advised to consult with his/her primary care provider and pharmacist regarding drug-drug interaction of medications currently prescribed. Patient has been prescribed a controlled substance after being counseled on the medication, medication safety, and possible side effects. ELAINE report has been obtained and reviewed prior to prescription and found to be appropriate. Opioid contract was reviewed and signed by the patient, and that they have agreed to all of the terms set forth by our compliance program. Patient has been instructed to contact the clinic with any concerns before the next appointment. Dr. Ortiz has reviewed this note and agrees with this plan of care. This note was dictated using voice recognition software and make contain err
== END ==
PROVIDERS: Visit Provider Clinical Nurse Specialist Family Health
DX: M51.16 Intervertebral disc disorders with radiculopathy, lumbar region (principal); M96.1 Postlaminectomy syndrome, not elsewhere classified; M25.559 Pain in unspecified hip; M25.539 Pain in unspecified wrist
CPT/HCPCS: 99212; G0463

== ENCOUNTER → 2021-08-22 11:30 | Outpatient (CLI) | payer BC, SELFPAY ==
[2021-08-22 13:56] LABS: Basophils % 0.4 % (0.1-2.0); Eosinophils # 0.1 K/mm3 (0.0-0.4); Eosinophils % 2.5 % (0.1-12.0); Hematocrit 38.5 % (37.0-47.0); Hemoglobin 12.1 g/dL (12.2-16.2); Lymphocytes # 1.2 K/mm3 (0.7-4.5); Mean Corpuscular HGB Conc 31.5 g/dL (31.8-35.4); Mean Corpuscular Hemoglobin 30.6 pg (27.0-31.2); Mean Corpuscular Volume 96.9 fl (81-99); Mean Platelet Volume 7.7 fl (7.4-10.4); Monocytes # 0.3 K/mm3 (0.1-1.0); Monocytes % 8.9 % (1.7-9.3); Neutrophils % 55.2 % (37.0-80.0); Platelet Count 293 K/mm3 (142-424); Red Blood Count 3.98 M/mm3 (4.20-5.40); Red Cell Distribution Width 14.6 % (11.5-17.5); White Blood Count 3.6 K/mm3 (4.8-10.8)
[2021-08-22 14:27] LABS: Hemoglobin A1C 5.5 % (4.0-6.0)
[2021-08-22 15:04] LABS: Alanine Aminotransferase 17 U/L (12-78); Albumin Level 4.3 g/dl (3.5-5.0); Albumin/Globulin Ratio 1.7 (1.1-1.8); Alkaline Phosphatase 79 U/L (38-126); Anion Gap 12.4 mEq/L (5-15); Aspartate Amino Transferase 36 U/L (14-36); Bilirubin,Total 0.4 mg/dl (0.2-1.3); Blood Urea Nitrogen 13 mg/dl (7-17); Calcium 9.1 mg/dl (8.4-10.2); Carbon Dioxide 30 mmol/L (22.0-30.0); Chloride 100 mmol/L (98-107); Chol/HDL Ratio 2.4 (1-3.5); Cholesterol 163 mg/dl (140-200); Estimated Glomerular Filt Rate 102 ml/min (>60); GFR (African American) 123 ML/MIN (>60); Globulin 2.5 g/dL (1.3-3.2); Glucose 82 mg/dl (74-100); HDL Cholesterol 68 mg/dl (40-60); Potassium 4.4 mmoL/L (3.5-5.1); Sodium 138 mmol/L (136-145); Total Protein,Serum 6.8 g/dl (6.3-8.2); Triglycerides 83 mg/dl (30-150); VLDL Cholesterol 17 mg/dL (0-40)
[2021-08-22 15:15] LABS: Direct LDL Cholesterol 67.78 mg/dL (100-129)
== END ==
PROVIDERS: PCP Internal Medicine; Visit Provider Internal Medicine
DX: E11.42 Type 2 diabetes mellitus with diabetic polyneuropathy (principal); E78.5 Hyperlipidemia, unspecified; I10 Essential (primary) hypertension; I87.2 Venous insufficiency (chronic) (peripheral)
CPT/HCPCS: 36415; 80053; 80061; 83036; 85025

== ENCOUNTER → 2021-08-24 09:18 | Outpatient (CLI) | payer BC, SELFPAY | PROVIDERS: PCP Internal Medicine; Visit Provider Plastic Surgery | DX: Z01.812 Encounter for preprocedural laboratory examination (principal); U07.1 COVID-19; Z98.1 Arthrodesis status | CPT/HCPCS: C9803; U0003; U0005 ==

== ENCOUNTER → 2021-11-09 10:05 | Outpatient (POV) | payer BC, SELFPAY ==
[2021-11-09 10:25] VITALS: BP 141/77; PULSE 70; RESP 18; TEMP 36.4; O2SAT 94; BMI 32.8
--- NOTE | 2021-11-09 10:49 | P.PCN_ITS ---
- Procedure Date: 11/09/21 Time: 10:49 Anesthesiologist:: Celso Ortiz MD Complications:: None Pre-procedure Diagnosis:: Degenerative disc disease of lumbar spine with lumbar radiculopathy symptoms. Postlaminectomy syndrome lumbar spine. Bilateral wrist pain with hip pain and degenerative osteoarthritis Post-procedure Diagnosis:: Same Indications for Procedure:: Patient is a pleasant 61-year-old white female who we are treating for low back pain with lumbar radiculopathy symptoms postlaminectomy syndrome lumbar spine. Bilateral wrist pain and hip pain. She currently has an intrathecal hydromorphone/bupivacaine pain pump. She is currently going at 3.5 mg/day. She is on flex dosing. She is asking for an increase in her pump. She is also on lorazepam Ambien and gabapentin. Given her intrathecal dosing I told her that the only thing we can prescribe at this time is tramadol. She is not able to take any p.o. medications. Her Daniel is appropriate Daniel [phone]. We will give her tramadol 50 mg 3 times a day. We will also make adjustments to her intrathecal therapy. We will increase her to 4 mg/day. I did tell her we will need to see her every 2 months to reevaluate her symptoms. She is also under [facility] home health care. Procedure Details:: Analysis and reprogramming of intrathecal pain pump Informed consent was obtained risk and benefits of the procedure were explained to the patient. Patient was taken the procedure room. The pump was interrogated. Intrathecal hydromorphone/bupivacaine infusion was increased to 4 mg/day. She remains on flex dosing every 2 hours. Patient tolerated the procedure well with no complications. Plan and Disposition:: We will follow-up with her in 2 months. We will reevaluate her symptoms at that time. We will have the [facility] home health nurse reach out to her next week based on our adjustments. We will also start her on tramadol 50 mg 3 times a day to help with her arthritis type symptoms and bilateral wrist pain and hip pain.
== END ==
PROVIDERS: PCP Internal Medicine; Visit Provider Anesthesiology
DX: M51.16 Intervertebral disc disorders with radiculopathy, lumbar region (principal); M96.1 Postlaminectomy syndrome, not elsewhere classified; M25.531 Pain in right wrist; M25.532 Pain in left wrist; M25.559 Pain in unspecified hip; M19.90 Unspecified osteoarthritis, unspecified site; Z45.1 Encounter for adjustment and management of infusion pump
CPT/HCPCS: 62368; 99212; G0463

== ENCOUNTER → 2022-01-28 14:36 | Outpatient (POV) | payer BC, SELFPAY ==
[2022-01-28 15:27] VITALS: BP 126/78; PULSE 84; RESP 20; O2SAT 94; BMI 29.2
--- NOTE | 2022-01-29 21:36 | HMH.PAINSOAP ---
[facility] Pain Management SOAP Note Subjective:: Patient is a pleasant 61-year-old female who presents today for follow-up. Patient is currently being treated for degenerative disc disease of the lumbar spine with lumbar radiculopathy symptoms, some neck pain syndrome, bilateral wrist pain, hip pain. Patient is currently being managed with an intrathecal Dilaudid/bupivacaine pain pump. She is currently on 3.5 mg/day and on flex dosing. She is a home refill with [facility]. We did adjust this patient when we last saw her. She has been doing well. She is also being managed with tramadol 50 mg 3 times a day. She is needing refills on this medication since it is helping her generalized joint pains. She is still having intractable left wrist pain. She is scheduled to see a provider at for this. She rates her pain today as 6 out of 10. Daniel [phone] with an active morphine equivalent of 0. She is doing well so far. Review of Systems: General: No recent weight changes, no fever, no sleep disturbances Respiratory: No cough, no shortness of air, no recurring pulmonary infections Cardiovascular/peripheral vascular: No chest pain, no palpitations, no edema, no shortness of breath Gastrointestinal: No new onset incontinence, normal bowel movements reported Genitourinary: No new onset incontinence Musculoskeletal: Low back pain, wrist pain Psychiatric: [Normal mood/affect] Neurological: [Denies weakness in extremities], [denies balance issues] Objective:: Physical Exam: General: Alert and oriented x3, no acute distress, pleasant and cooperative Lungs: Respirations even and unlabored, symmetrical chest expansion Eyes: PERRL Musculoskeletal: Flexion and extension of lumbar [spine] somewhat guarded secondary to pain, [antalgic gait noted] Neurological: Speech clear, no gross sensory deficit Assessment:: Degenerative disc disease of the lumbar spine with lumbar radiculopathy symptoms, postlaminectomy syndrome of the lumbar spine, osteoarthritis of bilateral wrist and hips Plan:: Patient has been doing okay with her intrathecal pain pump. She is not needing any adjustments today. We will follow this patient in 6 months. We will continue the patient's tramadol 50 mg 3 times a day and provide the patient with 1 month worth of refill. Patient takes this medication as needed. Patient has been instructed to contact the clinic with any concerns before the next appointment. Dr. Ortiz has reviewed this note and agrees with this plan of care. This note was dictated using voice recognition software and make contain errors or omissions. [facility] History Medical History: Reports:: Anxiety, Arrhythmia, Asthma, Coronary Artery Disease, Deep Vein Thrombosis, Depression, Gall Bladder Disease, Gastroesophageal Reflux Disease(GERD), Hypertension, Migraine, Osteoporosis, Palpitations Denies:: Aneurysm, Atrial Fibrillation, Cancer, Chronic Obstructive Pulmonary Disease (COPD), Cerebrovascular Accident, Diabetes Mellitus Type 1, Diabetes Mellitus Type 2, Gastrointestinal Bleed, Hyperlipidemia, Internal Pacemaker, Kidney Stones, MRSA, Myocardial Infarction, Peripheral Artery Disease, Pulmonary Embolism, Renal Disease, Seizures, Supraventricular Tachycardia, Transient Ischemic Attacks (TIA), Valvular Heart Disease Comment Only: Congestive Heart Failure (diastolic dysfunction) *Have you ever received a pneumonia vaccine?: Yes *Have you received a flu vaccine this season?: Yes Other Medical History: Reports: Anemia, Arthritis, Cataracts, Fibromyalgia, Osteoporosis, Sinus Problems. Denies: Blood Transfusion Reaction, Chemotherapy, Glaucoma, Acquired Immunodeficiency Syndrome (AIDS), HIV, Hoarseness, Hormone Therapy, Hypothyroidism, Liver Disease, Radiation Therapy, Sickle Cell Disease, Thyroid Disease, Unexplained Bleeding Laterality Cases: Left: Breast Biopsy, Total Hip Replacement, Right: Arthroscopy Knee, Carpal Tunnel Release, Bilateral: Tonsillectomy, Other Other Surgeries: Yes: No Previ
== END ==
PROVIDERS: Visit Provider Student in an Organized Health Care Education/Training Program
DX: M51.16 Intervertebral disc disorders with radiculopathy, lumbar region (principal); M96.1 Postlaminectomy syndrome, not elsewhere classified; M16.0 Bilateral primary osteoarthritis of hip; M19.031 Primary osteoarthritis, right wrist; M19.032 Primary osteoarthritis, left wrist
CPT/HCPCS: 99212; G0463

== ENCOUNTER → 2022-04-02 13:05 | Outpatient (POV) | payer BC, SELFPAY ==
[2022-04-02 13:21] VITALS: BP 137/73; PULSE 66; RESP 20; TEMP 36.5; O2SAT 100; BMI 32.8
--- NOTE | 2022-04-02 13:39 | EXP.PAIN.SOA ---
[facility] Pain Management SOAP Note Subjective:: Patient is a pleasant 62-year-old female who presents today for medication refill and follow-up. We are currently treating the patient for degenerative disc disease of lumbar spine with lumbar radiculopathy symptoms, neck pain syndrome, bilateral wrist pain, hip pain. Today the patient rates her pain a 8 out of 10 and states the majority of her pain is in her left wrist due to reconstruction surgery about a month ago and her hips. Patient denies any new trauma aside from surgery. Patient states the pain is a throbbing, achy sensation that is worse with increased activity. Patient does elevate her left wrist and use Aleve as needed for inflammation and pain. Patient was given a brace to wear following surgery however she only used it minimally due to it causing pain where it rubs. Patient is currently managed with an intrathecal Dilaudid/bupivacaine pain pump. Her current dose is Dilaudid 3.5 mg/day with flex dosing. She is a home refill with [facility]. Patient is also managed with tramadol 50 mg 3 times a day. Patient denies any side effects from this medication. She states this medication does help take the edge off of her pain. She is requesting a refill at today's visit. Her Daniel is [phone]. Its been reviewed and appropriate. Review of systems: General: No recent weight changes, no fever, no sleep disturbances respiratory: No cough, no shortness of air, no recurring pulmonary infections Cardiovascular/peripheral: No chest pain, no palpitations, no edema, no shortness of breath Gastrointestinal: No new onset incontinence, normal bowel movements reported Genitourinary: No new onset incontinence Musculoskeletal: Left wrist pain, bilateral hip pain Psychiatric: Normal mood/affect Neurological: Denies weakness in extremities, denies balance issues Objective:: Physical exam General: Alert and oriented x3, no acute distress, pleasant and cooperative Lungs: Respirations even and unlabored, symmetrical chest expansion Eyes: PERRL Musculoskeletal: Flexion and extension of lumbar spine somewhat guarded secondary to pain antalgic gait noted Neurological: Speech clear, no gross sensory deficit Assessment:: Of disc disease of lumbar spine with lumbar radiculopathy symptoms, neck pain syndrome, bilateral wrist pain, hip pain Plan:: Patient continues to have significant pain in her left wrist following reconstruction surgery and bilateral hip pain. I have discussed with the patient regarding injective therapy that she may benefit from however at this time patient is not interested. I will send in a refill of the patient's tramadol 50 mg 3 times a day and provide a 1 month supply of this medication. We will also order the patient a compounding cream at today's visit. We will follow-up with the patient in 1 month. Patient will return to clinic in 1 month for follow-up, reevaluation of symptoms and medication refill. Patient has been counseled to contact the clinic with any questions or concerns before her next appointment date. Dr. Ortiz is read this note and agrees with this plan of care. This note was dictated using voice recognition software and may contain errors or omissions. PFSH PFSH Social History Smoking Status: Never smoker second hand exposure: No alcohol intake: never counseling provided: none substance use type: denies use current occupational status: other Travel in the last 8 weeks: None household members: spouse and family housing: house current occupation: [employer] current occupational exposures/hazards: No caffeine: Yes
== END ==
PROVIDERS: PCP Internal Medicine; Visit Provider Nurse Anesthetist, Certified Registered
DX: M51.16 Intervertebral disc disorders with radiculopathy, lumbar region (principal); M54.2 Cervicalgia; M25.531 Pain in right wrist; M25.532 Pain in left wrist; M25.559 Pain in unspecified hip
CPT/HCPCS: 99212; G0463

== ENCOUNTER 2022-04-04 11:02 | Outpatient (RCR) | payer BC, SELFPAY | END 2022-04-04 11:05 | disposition home or self-care (01) | LOC: OT 11:02 | PROVIDERS: PCP Internal Medicine; Visit Provider Plastic Surgery | DX: M25.532 Pain in left wrist (principal); Z98.1 Arthrodesis status | CPT/HCPCS: 97166 ==

== ENCOUNTER → 2022-04-09 15:02 | Outpatient (CLI) | payer BC, SELFPAY | PROVIDERS: PCP Internal Medicine; Visit Provider Surgery | DX: Z01.818 Encounter for other preprocedural examination (principal); Z20.822 Contact with and (suspected) exposure to COVID-19; Z12.11 Encounter for screening for malignant neoplasm of colon | CPT/HCPCS: C9803; U0003; U0005 ==

== ENCOUNTER 2022-04-11 11:14 | Day surgery (SDC) | payer BC, SELFPAY ==
[2022-04-11 11:28] VITALS: BP 140/86; PULSE 92; RESP 18; TEMP 37.3; O2SAT 98; BMI 32.8
--- NOTE | 2022-04-11 11:48 | EXP.ANES.CKL ---
[facility] Medical History (Updated 04/11/22 @ 11:35 by Gerda Ball RN) Acute postoperative anemia due to expected blood loss CAD (coronary artery disease) DDD (degenerative disc disease), lumbar Degenerative joint disease of left hip Derangement of sacroiliac joint Diabetes Diastolic dysfunction Fracture acetabulum-closed HHD (hypertensive heart disease) HTN (hypertension) Hx of fracture of wrist Normal colonoscopy Post laminectomy syndrome Right knee pain Right shoulder injury Surgical History (Updated 04/11/22 @ 11:33 by Gerda Ball RN) History of left hip replacement History of surgery on left wrist Family History (Updated 04/11/22 @ 11:37 by Gerda Ball RN) Other Family history of diabetes mellitus type II Family hx-stroke Social History (Updated 04/11/22 @ 11:38 by Gerda Ball RN) Smoking Status: Never smoker second hand exposure: No alcohol intake: never counseling provided: none substance use type: denies use current occupational status: other Travel in the last 8 weeks: None household members: spouse and family housing: house current occupation: [employer] current occupational exposures/hazards: No caffeine: Yes do you feel safe at home: Yes victim of physical abuse: No victim of emotional abuse: No victim of sexual abuse: No would you like helpful sources: No [facility] Anesthesia Checklist Patient Identification Patient Identification: Arm Band and Verbal (Name & ) Structural Data Admitted From: Home Planned Operative Procedure/s: Colonoscopy Consent for Planned Operative Procedure(s) Verified: Yes Verified Documents: Surgical Consent NPO Status Verified Time NPO: 04:00 Additional verifications Anesthesia Reactions: No Hx Blood Transfusions: Yes Blood Transfusion Reaction: No Airway Assessment C-Spine Mobility Assessed: Yes TMJ Mobility Assessed: Yes Neurological Assessment Level of Consciousness: Awake, Alert and Appropriate Anesthesia Plan Anesthesia Risk discussed: Yes ASA Class: III Anesthesia Type: MAC
[2022-04-11 12:09] VITALS: O2SAT 98
[2022-04-11 12:13] LABS: POC Glucose,Bedside 81 (70-110)
--- NOTE | 2022-04-11 12:30 | HMH.SCOPE ---
Procedure: Date: 04/11/22 Patient Date of :: 1960 Procedure Performed:: Screening colonoscopy Indications:: Colon cancer screening Performing Provider:: Charity Benson MD Referring Provider:: Omar De La Torre Sedation:: Propofol Procedure:: After placing the patient in the left lateral decubitus position, the colonoscopy was gently inserted into the rectum and under direct visualization advanced to the cecum which was identified by transillumination in the right lower quadrant, identification of the ileocecal valve, appendiceal orifice, and cecal strap. Color, texture, mucosa, and anatomy of the colon were carefully examined with the scope. Findings:: Anal canal: normal Rectum: normal Sigmoid colon: normal without polyps or inflammatory changes Descending colon: normal without polyps or inflammatory changes Splenic flexure: normal Transverse colon: normal without polyps or inflammatory changes Hepatic flexure: normal Ascending colon: normal without polyps or inflammatory changes Cecum: normal Terminal ileum: not visualized Note: colon prep only fair with much residual liquid stools noted Impression: Grossly normal colonoscopy Recommendations:: Repeat screening examination in about 5-10 years Complications:: None Estimated blood obtained (mL): 0
[2022-04-11 12:34] VITALS: BP 90/53; PULSE 72; RESP 12; TEMP 36.4; O2SAT 96
[2022-04-11 12:44] VITALS: BP 104/57; PULSE 69; RESP 13; O2SAT 97
[2022-04-11 12:54] VITALS: BP 116/69; PULSE 69; RESP 13; O2SAT 97
[2022-04-11 13:08] VITALS: BP 118/65; PULSE 69; RESP 13; O2SAT 98
== END 2022-04-11 13:10 | disposition home or self-care (01) ==
PROVIDERS: PCP Internal Medicine; Visit Provider Internal Medicine Gastroenterology
PROC: 0DJD8ZZ Inspection of Lower Intestinal Tract, Via Natural or Artificial Opening Endoscopic (ICD-10-PCS; CPT 45378; principal; 2022-04-11 12:00)
DX: Z12.11 Encounter for screening for malignant neoplasm of colon (principal); Z79.899 Other long term (current) drug therapy
CPT/HCPCS: 45378; 82962

== ENCOUNTER 2022-05-08 08:04 | Outpatient (RCR) | payer BC, SELFPAY | END 2022-05-08 08:10 | disposition home or self-care (01) | LOC: OT 08:04 | PROVIDERS: PCP Internal Medicine; Visit Provider Plastic Surgery | DX: M25.332 Other instability, left wrist (principal) ==

== ENCOUNTER → 2022-06-14 09:01 | Outpatient (CLI) | payer BC, SELFPAY ==
--- NOTE | 2022-06-14 09:05 | XR_ITS ---
FINAL REPORT TECHNIQUE: Bone densitometry calculations of the right hip were obtained. CLINICAL HISTORY: . post menopausal , patient has metal in left hip, back and both wrists, so only right hip was scanned FINDINGS: DEXA BONE DENSITY AXIAL SKELETON Only the right hip was evaluated due to patient having a metal in the left hip, back and both wrists. Using the right hip, the bone mineral density of the femoral neck is 0.752 g/cm2, corresponding to a T-score of -0.9. NOTE: T-score: Standard deviation compared with peak bone mass of young adult mean. *Following the recommendations of the International Society of Bone densitometry, classification of hip BMD is based on the lower of two T-scores; total hip or femoral neck. IMPRESSION: Diminished bone mineral density of the right hip consistent with borderline osteopenia. FRAX not reported because patient is being treated for osteoporosis in addition to score being at or above -1.0. Reviewed, Interpreted and Dictated by Houston Elizabeth MD Transcribed by Dara Campoverde Authenticated and [facility]
== END ==
PROVIDERS: PCP Internal Medicine; Visit Provider Internal Medicine
DX: Z78.0 Asymptomatic menopausal state (principal); Z87.81 Personal history of (healed) traumatic fracture
CPT/HCPCS: 77080

== ENCOUNTER → 2022-06-20 17:12 | Outpatient (CLI) | payer BC, SELFPAY ==
[2022-06-20 18:17] LABS: Basophils % 0.5 % (0.1-2.0); Eosinophils # 0.1 K/mm3 (0.0-0.4); Eosinophils % 1.2 % (0.1-12.0); Hematocrit 39.2 % (37.0-47.0); Hemoglobin 12.4 g/dL (12.2-16.2); Lymphocytes # 0.8 K/mm3 (0.7-4.5); Lymphocytes % 14.7 % (10-50); Mean Corpuscular HGB Conc 31.5 g/dL (31.8-35.4); Mean Corpuscular Hemoglobin 29.9 pg (27.0-31.2); Mean Platelet Volume 7.5 fl (7.4-10.4); Monocytes # 0.2 K/mm3 (0.1-1.0); Monocytes % 4.4 % (1.7-9.3); Neutrophils # 4.1 K/mm3 (1.8-7.8); Neutrophils % 79.1 % (37.0-80.0); Platelet Count 359 K/mm3 (142-424); Red Blood Count 4.13 M/mm3 (4.20-5.40); Red Cell Distribution Width 13.5 % (11.5-17.5); White Blood Count 5.2 K/mm3 (4.8-10.8)
[2022-06-20 18:34] LABS: Hemoglobin A1C 5.7 % (4.0-6.0)
[2022-06-20 18:39] LABS: Chloride 100 mmol/L (98-107)
[2022-06-20 18:40] LABS: Potassium 4.3 mmoL/L (3.5-5.1); Sodium 139 mmol/L (136-145)
[2022-06-20 18:43] LABS: Anion Gap 12.3 mEq/L (5-15); Blood Urea Nitrogen 7 mg/dl (7-17); Calcium 9.7 mg/dl (8.4-10.2); Carbon Dioxide 31 mmol/L (22.0-30.0); Estimated Glomerular Filt Rate 101 ml/min (>60); GFR (African American) 123 ML/MIN (>60); Glucose 133 mg/dl (74-100)
== END ==
PROVIDERS: PCP Internal Medicine; Visit Provider Anesthesiology
DX: Z01.812 Encounter for preprocedural laboratory examination (principal); Z45.1 Encounter for adjustment and management of infusion pump
CPT/HCPCS: 36415; 80048; 83036; 85025

== ENCOUNTER 2022-06-21 08:58 | Day surgery (SDC) | payer BC, SELFPAY ==
[2022-06-20 08:14] VITALS: BMI 36.6
[2022-06-21 09:34] VITALS: BP 141/90; PULSE 71; RESP 18; TEMP 37.1; O2SAT 98
[2022-06-21 09:57] LABS: POC Glucose,Bedside 95 (70-110)
--- NOTE | 2022-06-21 10:44 | EXP.ANES.CKL ---
[facility] Disclaimer: The information contained in this section may have been updated after the patient was seen, as this information can be updated by other users. Medical History Acute postoperative anemia due to expected blood loss CAD (coronary artery disease) DDD (degenerative disc disease), lumbar Degenerative joint disease of left hip Derangement of sacroiliac joint Diabetes Diabetes mellitus, type 2 Diastolic dysfunction Fracture acetabulum-closed HHD (hypertensive heart disease) HTN (hypertension) Hx of fracture of wrist Hyperlipidemia Migraine Normal colonoscopy Post laminectomy syndrome Right knee pain Right shoulder injury Urinary incontinence Surgical History History of cholecystectomy History of hysterectomy History of knee replacement History of left hip replacement History of surgery on left wrist Family History Other Family history of diabetes mellitus type II Family hx-stroke Social History Smoking Status: Never smoker second hand exposure: No alcohol intake: never counseling provided: none substance use type: denies use current occupational status: other Travel in the last 8 weeks: None household members: spouse and family housing: house current occupation: [employer] current occupational exposures/hazards: No caffeine: Yes do you feel safe at home: Yes victim of physical abuse: No victim of emotional abuse: No victim of sexual abuse: No would you like helpful sources: No [facility] Anesthesia Checklist Patient Identification Patient Identification: Arm Band Structural Data Admitted From: Home Planned Operative Procedure/s: Replacement of Intrathecal Pain Pump Generator Consent for Planned Operative Procedure(s) Verified: Yes Verified Documents: Surgical Consent and History and Physical NPO Status Verified Time NPO: 00:00 Additional verifications Anesthesia Reactions: No Hx Blood Transfusions: Yes Blood Transfusion Reaction: No Airway Assessment C-Spine Mobility Assessed: Yes TMJ Mobility Assessed: Yes Dentition: Edentulous Neurological Assessment Level of Consciousness: Awake and Alert Anesthesia Plan Anesthesia Risk discussed: Yes Anesthesia Plan: Verified ASA Class: III Anesthesia Type: MAC
--- NOTE | 2022-06-21 10:56 | SUR.OPER ---
1054 intrathecal pain pump generator sn: [id number] explanted
[2022-06-21 11:13] VITALS: BP 143/85; PULSE 79; RESP 17; O2SAT 99
[2022-06-21 11:23] VITALS: BP 135/96; PULSE 69; RESP 18; O2SAT 99
[2022-06-21 11:33] VITALS: BP 140/90; PULSE 64; RESP 17; O2SAT 98
--- NOTE | 2022-06-21 11:37 | SUR.PHASEII ---
Verbal order per MD Ortiz-continue all current home medications
[2022-06-21 11:43] VITALS: BP 124/80; PULSE 68; RESP 18; O2SAT 99
[2022-06-21 12:13] VITALS: BP 128/78; PULSE 69; RESP 18; O2SAT 99
--- NOTE | 2022-06-21 15:01 | P.OP_ITS ---
Date of procedure: 06/21/22 Pre-op Diagnosis:: Degenerative disc disease of lumbar spine with lumbar radiculopathy symptoms with end-of-life intrathecal hydromorphone/bupivacaine pain pump. Post-op Diagnosis:: Same Procedure performed:: Replacement of intrathecal pain pump battery Surgeon:: Celso Ortiz MD HAT FORMING MACHINE OPERATOR:: Aashish Trevor Anesthesia: MAC Estimated blood loss (mL): 5 Clinical Note:: Patient is a pleasant 62-year-old white female who has an intrathecal hydromorphone/bupivacaine pain pump. We are replacing her pain pump battery today. We will also refill her pump and increase her concentration of hydromorphone to 20 mg/mL. She is on flex dosing. We will change her to continuous flow. She is doing very well with her pump. We will start her at her same daily dose of 4 mg/day. Daniel and drug screen are all appropriate. Operative findings:: None Operative note:: Informed consent was obtained and the risk and benefits of the procedure were explained to the patient. The patient was taken to the operating room. She was prepped and draped in sterile fashion. Anesthetized the skin and subcutaneous tissues overlying the pain pump. I made an incision and dissected out the pain pump battery. We disconnected the catheter and connected the catheter to the new pump. The new pump was refilled with 20 mL of intrathecal hydromorphone 20 mg/mL plus bupivacaine 10 mg/mL. We were able to freely withdraw clear CSF through the side-port of the pump. The pump was placed back in the pocket. The incision was irrigated with antibiotic solution. The pump was then interrogated and started at 4 mg/day. The incision was closed with 2-0 Vicryl followed by sergo. The patient was placed in an abdominal binder. Patient was taken recovery stable condition. The patient tolerated the procedure well with no complications. Patient was discharged home neurologically intact with good relief of pain symptoms. She was placed on Bactrim DS twice a day for 5 days. Condition: stable Disposition: PACU Complications:: None
== END 2022-06-21 12:30 | disposition home or self-care (01) ==
PROVIDERS: PCP Internal Medicine; Visit Provider Anesthesiology
PROC: (CPT 62350; principal; 2022-06-21 10:30)
DX: T85.615A Breakdown (mechanical) of other nervous system device, implant or graft, initial encounter (principal); M51.16 Intervertebral disc disorders with radiculopathy, lumbar region; Z79.899 Other long term (current) drug therapy
CPT/HCPCS: 62350; 62362; 82962; 96374; C1772

== ENCOUNTER → 2022-06-27 11:42 | Outpatient (POV) | payer BC, SELFPAY ==
[2022-06-27 12:23] VITALS: BP 105/39; PULSE 67; RESP 18; O2SAT 96; BMI 32.4
--- NOTE | 2022-06-27 12:23 | EXP.PAIN.SOA ---
[facility] Pain Management SOAP Note Subjective:: Patient is a pleasant 62-year-old female who presents today for 1 week follow-up of intrathecal pain pump replacement on 06/21/2022. We are currently treating the patient for degenerative disc disease of lumbar spine with lumbar radiculopathy symptoms, neck pain syndrome, bilateral wrist pain, hip pain. Today she rates her pain a 5 out of 10. Patient states she has recently had 2 falls where she tripped over her own feet. Patient states this is a frequent occurrence and nothing new. Patient states that she has always had 1 leg longer than the other and then when she had bilateral hip replacements this did aggravate the problem. Patient does use a walker at home however she still will frequently trip. Patient denies any problems with her intrathecal pain pump. She is currently managed with Dilaudid 3.997 mg/day and bupivacaine 1.998 mg/day. Patient denies any side effects from this medication. She states this medication does help with her pain symptoms. Patient has also been given tramadol 50 mg 3 times a day. Patient does state this does provide additional improvement of her symptoms. Her Daniel is [phone]. Its been reviewed and appropriate. Review of Systems: General: No recent weight changes, no fever, no sleep disturbances Respiratory: No cough, no shortness of air, no recurring pulmonary infections Cardiovascular/peripheral vascular: No chest pain, no palpitations, no edema, no shortness of breath Gastrointestinal: No new onset incontinence, normal bowel movements reported Genitourinary: No new onset incontinence Musculoskeletal: Low back pain Psychiatric: [Normal mood/affect] Neurological: [Denies weakness in extremities], [denies balance issues] Objective:: Physical Exam: General: Alert and oriented x3, no acute distress, pleasant and cooperative Lungs: Respirations even and unlabored, symmetrical chest expansion Eyes: PERRL Musculoskeletal: Flexion and extension of lumbar [spine] somewhat guarded secondary to pain, [antalgic gait noted] Neurological: Speech clear, no gross sensory deficit Skin: Incision site clean, dry, well approximated, no erythema noted, sergo intact Assessment:: Degenerative disc disease of lumbar spine with lumbar radiculopathy symptoms, neck pain syndrome, bilateral wrist pain, hip pain Plan:: Patient continues to experience significant pain in her low back and legs. Patient's incision site is clean, dry, well approximated with no erythema noted and sergo intact at today's visit. I have counseled the patient that she will return to clinic in 2 weeks for reevaluation with the plan to remove the sergo and I had skin glue and Steri-Strips. Patient has been instructed to continue her surgical restrictions with minimal to no bending, lifting, twisting and no tub bathing. Patient has been instructed to continue to wear her abdominal binder. In the future we will plan to come off of her tramadol. At this time the patient does not need additional refills however at our next visit we will only refill her tramadol 50 mg 2 twice daily with the plan to wean her off this medicine completely. Patient will return to clinic in 2 weeks for reevaluation of symptoms and follow-up. Patient has been instructed to contact the clinic with any concerns before the next appointment. Dr. Ortiz has reviewed this note and agrees with this plan of care. This note was dictated using voice recognition software and make contain errors or omissions. -- It Is medically necessary for this patient to continue to have their intrathecal pump refilled at regular intervals. This patient had an intrathecal pain pump implanted after meeting criteria of chronic intractable pain for greater than 3 months and failing conservative treatments. Patient has committed and been compliant to the treatment plan and all planned follow up care. Since implantation of the intrathecal pain pump, the patient has had decreased maciel
== END ==
PROVIDERS: PCP Internal Medicine; Visit Provider Nurse Practitioner Family
DX: M51.16 Intervertebral disc disorders with radiculopathy, lumbar region (principal); M25.559 Pain in unspecified hip; M25.532 Pain in left wrist; M25.531 Pain in right wrist; M54.2 Cervicalgia
CPT/HCPCS: 99212; G0463

== ENCOUNTER → 2022-07-12 11:33 | Outpatient (POV) | payer BC, SELFPAY ==
[2022-07-12 12:00] VITALS: BP 117/79; PULSE 90; RESP 20; O2SAT 91; BMI 32.3
--- NOTE | 2022-07-12 12:10 | EXP.PAIN.PRO ---
Procedure Date: 07/12/22 Time: 12:06 Anesthesiologist:: Nima Torrez CRNA Complications:: None Pre-procedure Diagnosis:: Degenerative disc disease of lumbar spine with lumbar radiculopathy symptoms, neck pain syndrome, bilateral wrist pain, hip pain Post-procedure Diagnosis:: Same Indications for Procedure:: Patient is a pleasant 62-year-old female who presents today for follow-up of intrathecal pain pump replacement on 06/21/2022.. We are currently treating the patient for degenerative disc disease of lumbar spine with lumbar radiculopathy symptoms, neck pain syndrome, bilateral wrist pain, hip pain. Today she rates her pain a 8 out of 10. Patient denies any new trauma or injury. Patient denies any change in location or type of pain she experiences. Patient does continue to have some incisional pain and describes this as a aching, throbbing sensation that is worse with increased activity. Patient does believe this is related to her sergo. Patient states she has been having some nausea and vomiting however she believes it is also due to the extent of pain she has been experiencing. Previously the patient was ordered compounding cream and she states that this is on order however she has not gotten it in the mail yet. Patient is currently managed with Dilaudid 3.997 milligrams per day and bupivacaine 1.998 mg/day. Patient denies any side effects from these medications. She states these medications do help. Patient is also managed with tramadol 50 mg 3 times a day however at her last visit we did discuss with her that we would be decreasing this medication. General: Alert and oriented x3, no acute distress, pleasant and cooperative Lungs: Respiration even unlabored, symmetrical chest expansion Eyes: PERRL Musculoskeletal: Flexion and extension of lumbar spine somewhat guarded secondary to pain, antalgic gait noted Neurological: Speech clear, no gross sensory deficit Skin: Right lower lumbar incision moderate erythema with sergo intact, minimal clear drain change at 1 staple site Procedure Details:: Informed consent was obtained and the risk and benefits of the procedure were explained to the patient. The patient was taken to the procedure room where noninvasive monitoring was placed on the patient including a noninvasive blood pressure cuff and pulse oximeter. The pump was then interrogated and increased to Dilaudid 20 mg/mL with a daily dose of 4.396 mg/day and bupivacaine 10 mg/mL with a daily dose of 2.198 mg/day. Patient tolerated the procedure well with no complications. Plan and Disposition:: Patient continues to experience significant pain in her low back. Patient's incision site did have moderate erythema and minimal drainage at 1 staple site. I have discussed with the patient that we will hold off removing the sergo until next week. I will order the patient a antibiotic of Bactrim 160 mg / 800 mg twice daily for 10 days. I will also prescribe Phenergan 12.5 mg every 8 hours as needed with a 3-day supply and tizanidine 4 mg twice daily with a 1 month supply. I will refill the patient's tramadol 50 mg twice daily and provide a 1 month supply of this medication. Patient will return to clinic next week for reevaluation of symptoms, possible staple removal and follow-up. Patient has been counseled to continue her postoperative restrictions and maintain wearing her abdominal binder. Patient has been instructed to contact the clinic with any questions or concerns before the next appointment date. Dr. Ortiz has read this note and agrees with this plan of care. This note was dictated using voice recognition software and may contain errors or omissions.
== END | disposition home or self-care (01) ==
PROVIDERS: PCP Internal Medicine; Visit Provider Nurse Anesthetist, Certified Registered
DX: M51.16 Intervertebral disc disorders with radiculopathy, lumbar region (principal); M25.531 Pain in right wrist; M25.532 Pain in left wrist; M25.559 Pain in unspecified hip
CPT/HCPCS: 62368; 99212; G0463

== ENCOUNTER → 2022-07-18 15:27 | Outpatient (POV) | payer BC, SELFPAY ==
--- NOTE | 2022-07-18 15:45 | EXP.PAIN.SOA ---
[facility] Pain Management SOAP Note Subjective:: Patient is a pleasant 62-year-old female who presents today for follow-up. We are currently treating the patient for degenerative disc disease of lumbar spine with lumbar radiculopathy symptoms, neck pain, bilateral wrist pain, hip pain. Patient rates her pain today a 5 out of 10. Patient denies any new trauma or injury. Patient denies any change location or type of pain she experiences. Patient is currently managed with tramadol 50 mg 2 times daily and lorazepam 1 mg 4 times a day from her primary care provider. Patient denies any side effects from these medications. At her last visit we did discuss with the patient that we would be decreasing her tramadol frequency until we do get her off this medication completely. Patient was prescribed tizanidine 4 mg twice a day last week however she states that some days she only has to take this at night. Patient does state that this helps with her leg cramps. Patient has had improvement from her nausea that she was having last week. Patient was also started on Bactrim 160 mg / 800 mg twice a day for 10 days for possible incision site infection and she is still continuing to take this. Patient states she does have some soreness around her incision site however overall it is doing okay. Patient is currently managed with Dilaudid 20 mg/mL with a daily dose of 4.396 mg/day and bupivacaine 10 mg/mL with a daily dose of 2.198 mg/day. Patient denies any side effects from these medications. Patient states she has had much better pain improvement following our increase at last week's visit. Patient's compounding cream has been ordered however has not came in yet. Her Daniel is [id number]. Its been reviewed and appropriate. Review of Systems: General: No recent weight changes, no fever, no sleep disturbances Respiratory: No cough, no shortness of air, no recurring pulmonary infections Cardiovascular/peripheral vascular: No chest pain, no palpitations, no edema, no shortness of breath Gastrointestinal: No new onset incontinence, normal bowel movements reported Genitourinary: No new onset incontinence Musculoskeletal: Low back pain Psychiatric: [Normal mood/affect] Neurological: [Denies weakness in extremities], [denies balance issues] Objective:: Physical Exam: General: Alert and oriented x3, no acute distress, pleasant and cooperative Lungs: Respirations even and unlabored, symmetrical chest expansion Eyes: PERRL Musculoskeletal: Flexion and extension of lumbar [spine] somewhat guarded secondary to pain, [antalgic gait noted] Neurological: Speech clear, no gross sensory deficit Skin: Incision site clean, dry, well approximated, sergo intact, significant erythema noted ORT score updated with low risk of 1 Assessment:: Degenerative disc disease of lumbar spine with lumbar radiculopathy symptoms, neck pain, bilateral wrist pain, hip pain Plan:: Patient continues to have pain in her low back however she is doing much better at today's visit following her last intrathecal increase. Patient is still taking her antibiotic Bactrim for possible incision site infection. At this time we will leave in her sergo and continue to monitor her incision. Patient will return to clinic in 1 week for reevaluation of symptoms and follow-up. Patient has been instructed to contact the clinic with any concerns before the next appointment. Dr. Ortiz has reviewed this note and agrees with this plan of care. This note was dictated using voice recognition software and make contain errors or omissions. -- It Is medically necessary for this patient to continue to have their intrathecal pump refilled at regular intervals. This patient had an intrathecal pain pump implanted after meeting criteria of chronic intractable pain for greater than 3 months and failing conservative treatments. Patient has committed and been compliant to the treatment plan and all planned follow up care. Since implantation of
[2022-07-18 15:50] VITALS: BP 98/63; PULSE 76; RESP 18; O2SAT 97; BMI 30.5
== END ==
PROVIDERS: PCP Internal Medicine; Visit Provider Nurse Practitioner Family
DX: M51.16 Intervertebral disc disorders with radiculopathy, lumbar region (principal); M25.531 Pain in right wrist; M25.532 Pain in left wrist; M25.559 Pain in unspecified hip
CPT/HCPCS: 99212; G0463

== ENCOUNTER → 2022-07-26 09:52 | Outpatient (POV) | payer BC, SELFPAY ==
--- NOTE | 2022-07-26 11:41 | EXP.PAIN.PRO ---
Procedure Date: 07/26/22 Time: 10:15 Anesthesiologist:: Marisa Villagomez APRN Complications:: None Pre-procedure Diagnosis:: Degenerative disc disease of lumbar spine with lumbar radiculopathy symptoms, neck pain, bilateral wrist pain, hip pain Post-procedure Diagnosis:: Same Indications for Procedure:: Patient is a pleasant 62-year-old female who presents today for intrathecal pain pump reprogramming adjustment. The patient is being treated for degenerative disc disease of lumbar spine with lumbar radiculopathy symptoms, neck pain, bilateral wrist pain, hip pain. Patient is currently being managed with Dilaudid 20 mg/mL with a daily dose of 4.396 mg/day and bupivacaine 10 mg/mL with a daily dose of 2.198 mg/day. Patient denies any side effects from this medication. Patient rates pain a 9 out of 10. Patient denies any new trauma or injury. Patient states she still continues to be sore and tender around her incision site. Patient did have her pump replaced on 07/12/2022. Patient has been coming to see as weekly due to signs of infection at her incision site. Patient was put on Bactrim 160 mg / 800 mg twice a day for 10 days however she continues to experience significant redness, heat and pain at this site. Patient is currently managed with tramadol 50 mg twice daily. Patient denies any side effects from this medication. From her previous visits we were decreasing this oral medication as we were adjusting her pump. She is requesting a refill at today's visit. Patient is also prescribed compounding cream however this has not came in the mail yet. drug screen is appropriate. Daniel [id number] has been reviewed and is appropriate. Physical exam General: Alert and oriented x3, no acute distress, pleasant and cooperative Lungs: Respirations even and unlabored, symmetrical chest expansion Eyes: PERRL Musculoskeletal: Flexion and extension of lumbar [spine] somewhat guarded secondary to pain, [antalgic gait noted] Neurological: Speech clear, no gross sensory deficit Skin: Incision site has significant erythema, hot to touch with seropurulent drainage, sergo intact Procedure Details:: Informed consent was obtained and the risk and benefits of the procedure were explained to the patient. Patient was taken to the procedure room where noninvasive monitoring was placed including noninvasive blood pressure cuff and pulse oximeter. Patient's pump was interrogated and was reprogrammed to Dilaudid 4.611 mg/day and bupivacaine 2.305 mg/day. The patient tolerated the procedure well with no complications. Plan and Disposition:: I will send in a refill of her tramadol 50 mg once daily and prescribe a 1 month supply of this medication. I will also order the patient Keflex 500 mg 3 times daily and provide a 7-day supply of this medication. patient will return to clinic in 1 week for reevaluation of symptoms and follow-up. Patient has been instructed to contact the clinic with any concerns before the next appointment. Dr. Ortiz has reviewed this note and agrees with this plan of care. This note was dictated using voice recognition software and make contain errors or omissions. -- It Is medically necessary for this patient to continue to have their intrathecal pump refilled at regular intervals. This patient had an intrathecal pain pump implanted after meeting criteria of chronic intractable pain for greater than 3 months and failing conservative treatments. Patient has committed and been compliant to the treatment plan and all planned follow up care. Since implantation of the intrathecal pain pump, the patient has had decreased pain and been more functional. Oral medications have been reduced including intake of oral opioids. Patient continues to do well with intrathecal therapy with decrease in pain symptoms and increase in functional status. Stopping intrathecal medications can lead to life threatening withdrawal, seizures, cardiac arrest, severe pain, and p
[2022-07-26 11:50] VITALS: BP 125/60; PULSE 87; RESP 18; O2SAT 97; BMI 30.7
== END | disposition home or self-care (01) ==
PROVIDERS: PCP Internal Medicine; Visit Provider Nurse Practitioner Family
DX: M51.16 Intervertebral disc disorders with radiculopathy, lumbar region (principal); M25.531 Pain in right wrist; M25.532 Pain in left wrist; M25.559 Pain in unspecified hip; Z45.1 Encounter for adjustment and management of infusion pump
CPT/HCPCS: 62368; 87070; 87077; 87186; 87205; 99213; G0463

== ENCOUNTER → 2022-08-06 11:50 | Outpatient (POV) | payer BC, SELFPAY ==
--- NOTE | 2022-08-06 12:27 | EXP.PAIN.PRO ---
Procedure Date: 08/06/22 Time: 12:07 Anesthesiologist:: Marisa Villagomez APRN Complications:: None Pre-procedure Diagnosis:: Degenerative disc disease of lumbar spine with lumbar radiculopathy symptoms, neck pain, bilateral wrist pain, hip pain Post-procedure Diagnosis:: Same Indications for Procedure:: Patient is a pleasant 62-year-old female who presents today for intrathecal pain pump programming adjustment. The patient is being treated for degenerative disc disease of lumbar spine with lumbar radiculopathy symptoms, neck pain, bilateral wrist pain, hip pain. Patient is currently being managed with Dilaudid 20 mg/mL with a daily dose of 4.611 mg/day and bupivacaine 10 mg/mL with a daily dose of 2.305 mg/day. Patient denies any side effects from this medication. Patient states this medication does help with her pain symptoms however she states she has had continued pain. Patient is prescribed tramadol 50 mg daily however she states this has not been working as effectively as it was when it was prescribed 3 times a day. Patient has had a slow decrease of the tramadol from 3 times a day down to its current dose. Patient states she took the last of her tramadol last night and is requesting a refill at today's visit. Patient is currently managed with lorazepam 1 mg 4 times a day, Ambien 10 mg daily and tizanidine 4 mg twice daily as needed. Patient denies any side effects from these medications. Patient was recently prescribed clindamycin 300 mg 3 times a day for 10 days for a MRSA infection at her pump site. Patient states this is done much better over the last few days and she has approximately 1 day left of this antibiotic. Patient rates pain a 3 out of 10. Drug screen is appropriate. Daniel [id number] has been reviewed and is appropriate. Physical exam General: Alert and oriented x3, no acute distress, pleasant and cooperative Lungs: Respirations even and unlabored, symmetrical chest expansion Eyes: PERRL Musculoskeletal: Flexion and extension of lumbar [spine] somewhat guarded secondary to pain, [antalgic gait noted] Neurological: Speech clear, no gross sensory deficit Skin: Incision site clean, dry, well approximated with minimal erythema noted Procedure Details:: Informed consent was obtained and the risk and benefits of the procedure were explained to the patient. Patient was taken to the procedure room where noninvasive monitoring was placed including noninvasive blood pressure cuff and pulse oximeter. Patient's pump was interrogated and was reprogrammed to Dilaudid 5.068 mg/day and bupivacaine 2.534 mg/day. The patient tolerated the procedure well with no complications. Plan and Disposition:: Patient states she continues to experience significant pain in her low back with radiating symptoms along with wrist pain. Patient's incision site was much better today with minimal erythema and no drainage noted. Her sergo were intact and incision site clean, dry, well approximated. Patient sergo were removed at today's visit and Steri-Strips applied. Patient has been instructed to continue her postop surgical restrictions. Patients tramadol was just refilled on July 26 with 30 tablets provided. Patient has been taking the medication more than once a day as prescribed. I have discussed with the patient that I will send in 1 additional month supply of the tramadol 50 mg daily however this will be the last refill. I have counseled the patient that she is at higher risk for complications with her combined intrathecal medication and oral medications and that we will only continue the muscle relaxer in the future. I will refill the patient's tizanidine 4 mg twice daily and provide a 1 month supply of this medication. Patient will return to clinic in 2 weeks for reevaluation of symptoms and follow-up. Patient states patient has been instructed to contact the clinic with any concerns before the next appointment. Dr. Ortiz has reviewed this
[2022-08-06 13:45] VITALS: BP 128/75; PULSE 75; RESP 20; O2SAT 95; BMI 29.7
== END | disposition home or self-care (01) ==
PROVIDERS: PCP Internal Medicine; Visit Provider Nurse Anesthetist, Certified Registered
DX: M51.16 Intervertebral disc disorders with radiculopathy, lumbar region (principal); M54.2 Cervicalgia; M25.531 Pain in right wrist; M25.532 Pain in left wrist; M25.559 Pain in unspecified hip
CPT/HCPCS: 62368; 99212; G0463

== ENCOUNTER 2022-08-27 11:31 | Day surgery (SDC) | payer BC, SELFPAY ==
[2022-08-27 11:45] VITALS: BP 134/83; PULSE 67; RESP 18; TEMP 36.8; O2SAT 100; BMI 31.3
[2022-08-27 11:55] VITALS: BP 122/80; PULSE 69; RESP 18; O2SAT 97
[2022-08-27 12:10] VITALS: BP 143/82; PULSE 65; RESP 18; O2SAT 98
--- NOTE | 2022-08-27 12:15 | EXP.PAIN.PRO ---
Procedure Date: 08/27/22 Time: 12:15 Anesthesiologist:: Nima Torrez CRNA Complications:: None Pre-procedure Diagnosis:: Degenerative disc disease lumbar spine multilevels. Lumbar radiculopathy. Lumbar postlaminectomy syndrome. Post-procedure Diagnosis:: Same. Indications for Procedure:: Patient is a pleasant 62-year-old female that presents for intrathecal pain pump interrogation and refill. Patient is currently being managed with hydromorphone 20 mg/mL and bupivacaine 10 mg/mL. Bupivacaine concentration will change to 20 mg/mL today. Patient complains of cervical neck pain that she describes as constant, dull, sharp and stabbing. She has extreme difficulty with left and right rotation. Patient reports having recent cervical imaging. I will attempt to locate the report and review. I discussed in detail with the patient regarding potentially needing cervical medial branch blocks/facet blocks C5-6, C6-7. However, I will review imaging prior to ordering. Procedure Details:: Details of the procedure were explained to the patient. The patient taken the procedure room and placed in the sitting position. The area of the pump was cleaned using chlorhexidine as a cleansing solution. The pump was accessed with ease using a 22-gauge inch and a half needle. 3.5 mL of solution was withdrawn and discarded appropriately. 4.4 mL of solution was expected. The pump was then filled incrementally with 20 cc of hydromorphone 20 mg/mL and bupivacaine 20 mg/mL. The pump was interrogated. The new rate for hydromorphone is 2.534 mg/day. Bupivacaine is now 5.068 mg/day. Plan and Disposition:: Patient was discharged without incident.
== END 2022-08-27 12:10 | disposition home or self-care (01) ==
PROVIDERS: PCP Internal Medicine; Visit Provider Nurse Anesthetist, Certified Registered
DX: M51.16 Intervertebral disc disorders with radiculopathy, lumbar region (principal); M96.1 Postlaminectomy syndrome, not elsewhere classified; Z45.1 Encounter for adjustment and management of infusion pump
CPT/HCPCS: 62370

== ENCOUNTER → 2022-09-09 10:53 | Outpatient (CLI) | payer BC, SELFPAY ==
[2022-09-09 12:01] LABS: Basophils % 0.5 % (0.1-2.0); Eosinophils # 0.2 K/mm3 (0.0-0.4); Hematocrit 37.5 % (37.0-47.0); Hemoglobin 12.5 g/dL (12.2-16.2); Lymphocytes # 1.1 K/mm3 (0.7-4.5); Lymphocytes % 20.7 % (10-50); Mean Corpuscular HGB Conc 33.3 g/dL (31.8-35.4); Mean Corpuscular Hemoglobin 31.7 pg (27.0-31.2); Mean Corpuscular Volume 95.1 fl (81-99); Mean Platelet Volume 7.8 fl (7.4-10.4); Monocytes # 0.4 K/mm3 (0.1-1.0); Neutrophils # 3.5 K/mm3 (1.8-7.8); Neutrophils % 67.7 % (37.0-80.0); Platelet Count 363 K/mm3 (142-424); Red Blood Count 3.94 M/mm3 (4.20-5.40); Red Cell Distribution Width 13.2 % (11.5-17.5); White Blood Count 5.2 K/mm3 (4.8-10.8)
[2022-09-09 12:21] LABS: Alanine Aminotransferase 15 U/L (12-78); Albumin Level 4.5 g/dl (3.5-5.0); Albumin/Globulin Ratio 1.6 (1.1-1.8); Alkaline Phosphatase 95 U/L (38-126); Anion Gap 6.6 mEq/L (5-15); Aspartate Amino Transferase 31 U/L (14-36); Bilirubin,Total 0.6 mg/dl (0.2-1.3); Blood Urea Nitrogen 12 mg/dl (7-17); Calcium 9.3 mg/dl (8.4-10.2); Carbon Dioxide 30 mmol/L (22.0-30.0); Chloride 103 mmol/L (98-107); Chol/HDL Ratio 2.1 (1-3.5); Cholesterol 187 mg/dl (140-200); Estimated Glomerular Filt Rate 85 ml/min (>60); GFR (African American) 103 ML/MIN (>60); Globulin 2.9 g/dL (1.3-3.2); Glucose 102 mg/dl (74-100); HDL Cholesterol 88 mg/dl (40-60); Potassium 3.6 mmoL/L (3.5-5.1); Sodium 136 mmol/L (136-145); Total Protein,Serum 7.4 g/dl (6.3-8.2); Triglycerides 42 mg/dl (30-150); VLDL Cholesterol 8 mg/dL (0-40)
[2022-09-09 12:31] LABS: Direct LDL Cholesterol 76.35 mg/dL (100-129)
[2022-09-09 12:38] LABS: 25-OH Vitamin D, Total 31.6 ng/mL (30-100)
[2022-09-09 13:10] LABS: Microalbumin/Creatinine Ratio 174.3
[2022-09-09 13:13] LABS: Creatinine,Urine Random 108 mg/dL (Not Estab.)
[2022-09-09 14:27] LABS: Hemoglobin A1C 5.3 % (4.0-6.0)
== END ==
PROVIDERS: PCP Internal Medicine; Visit Provider Internal Medicine
DX: I10 Essential (primary) hypertension (principal); E11.42 Type 2 diabetes mellitus with diabetic polyneuropathy; I87.2 Venous insufficiency (chronic) (peripheral); F41.9 Anxiety disorder, unspecified; M81.0 Age-related osteoporosis without current pathological fracture; M15.0 Primary generalized (osteo)arthritis
CPT/HCPCS: 36415; 80053; 80061; 82043; 82306; 82570; 83036; 85025

== ENCOUNTER → 2022-11-27 12:52 | Outpatient (CLI) | payer BC, SELFPAY ==
--- NOTE | 2022-11-27 12:56 | FL_ITS ---
FINAL REPORT CLINICAL HISTORY: 3.18 fluoro time eval swallowing FINDINGS: MODIFIED BARIUM SWALLOW History: Dysphagia. FINDINGS: Fluoroscopy was provided for the speech pathologist to evaluate the swallowing mechanism. The patient was given several different consistencies of barium while the swallow was visualized fluoroscopically. The report of the speech pathologist should be consulted prior to making dietary decisions. FLUOROSCOPY TIME: 3 minutes 18 seconds. 16 cine runs were obtained. IMPRESSION: Modified barium swallow under fluoroscopic guidance. Please see the report of the speech pathologist for more detail. Films reviewed , interpreted and dictated by Dr. Montejo. Transcribed by Alessandro Louise PA-C. Reviewed, Interpreted and Dictated by Horacio Montejo III, MD Transcribed by BRADEN Bruce Authenticated and [facility]
--- NOTE | 2022-11-28 14:52 | HMH.SLMBS2 ---
Speech & Language Evaluation Speech/Language Mod Barium Swallow Start: 11/28/22 14:21 Freq: once Status: Complete Protocol: Document 11/28/22 14:21 KASI (Rec: 11/28/22 14:52 KASI [id number]) General Information General Current Food Consistancy Dysphagia Mechanical Soft, Honey Liquids Dentition Upper & Lower Dentures Oxygen Status Room Air Facial Symmetry Patient Baseline Patient Orientation Person,Place,Time,Situation Ability to Follow Directions Excellent Communication Ability No Impairment MBS Recommendations Diet Dietary Recommendations Regular,Thin Liquids Treatment/Strategies Treatment Recommendation Pharyngeal Resistive Exer, Compens. Strategy Educat. Strategy/Precaution Recommend Sitting Upright (90 deg),Small Bites and Sips,Alternate Liquids/Solids Mod Barium Swallow Impressions Summary and Impressions Oral Phase Impression No Impairment (WFL) Oral Phase Summary Oral phase is grossly WFL. Mastication of solids is WFL. No significant oral residue is noted. AP transit is timely. Prespill into the pharynx was noted x1 with nectar thick liquids 2' back of tongue incoordination. Pharyngeal Phase Summary Min-mod pharyngeal dysphagia. No aspiration was present on the study. Pt did consistently penetrate with all liquid consistencies during the swallow 2' decreased hyolaryngeal elevation and excursion. She had residue in the laryngeal vestibule after the swallow with all trials. Least amount of residue was noted with thins via cup and most residue was noted with honey via cup. Pt is sensate to residue and will cough and use a subsequent swallow to clear residue from the laryngeal vestibule. Pt also presented with min-mod vallecular residue with liquids and moderate residue with solids after the swallow 2' decreased hyolaryngeal
== END ==
PROVIDERS: PCP Internal Medicine; Visit Provider Physical Medicine & Rehabilitation
DX: R13.10 Dysphagia, unspecified (principal)
CPT/HCPCS: 70371; 92611

== ENCOUNTER 2022-12-04 14:57 | Emergency (ER) | payer BC, SELFPAY ==
[2022-12-04] VITALS (10 sets, daily range): BP systolic 90–106; BP diastolic 56–67; PULSE 56–83; RESP 17; TEMP 36.6–36.8; O2SAT 86–98; BMI 31.3
--- NOTE | 2022-12-04 15:10 | PC.NURSE ---
MD and nurse at bedside
--- NOTE | 2022-12-04 15:14 | CT_ITS ---
FINAL REPORT CLINICAL HISTORY: STEVENSON headache COMPARISON: 01/10/2017 FINDINGS: Axial images of the head were obtained without contrast. Coronal reformatted images were also obtained.This study was performed with techniques to keep radiation doses as low as reasonably achievable (ALARA). Individualized dose reduction techniques using automated exposure control or adjustment of mA and/or kV according to the patient''s size were employed. There is no evidence of intracranial hemorrhage or mass. The ventricular size is within normal limits. There is no evidence of shift of the midline structures. No abnormal extra axial fluid collection is identified. No skull abnormality is seen on the bone window images. IMPRESSION: No acute intracranial abnormality. Reviewed, Interpreted and Dictated by Horacio Montejo III, MD Transcribed by Miladys Uribe Authenticated and [facility]
--- NOTE | 2022-12-04 15:33 | HMH.EDGENADL ---
Discharge Plan Disposition Patient Disposition: Home, Self-Care Condition: Good Prescriptions Prescriptions: New nitrofurantoin monohyd/m-cryst [Macrobid] 100 mg capsule 100 mg PO BID 5 Days Qty: 10 0RF Rx Instructions: must administer with a meal/food No Action zolpidem 10 mg tablet 10 mg PO HS PRN (Reason: Sleep) Label Comments: TAKE ONE TABLET BY MOUTH EVERY DAY AT BEDTIME NEEDED cholecalciferol (vitamin D3) 400 unit capsule 400 unit PO DAILY ascorbic acid (vitamin C) 500 mg tablet 500 mg PO DAILY carvedilol 12.5 mg tablet 12.5 mg PO BID Hold Instructions: Resume on 10/04/19. BP meds have not been needed at [facility] during admission; to be reassessed at SNF, may be restarted as needed duloxetine 60 mg capsule,delayed release(DR/EC) 60 mg PO BID lorazepam 1 MG tablet 1 mg PO TIDP PRN (Reason: Anxiety) Label Comments: TAKE ONE TABLET BY MOUTH THREE TIMES DAILY NEEDED lamotrigine 200 MG tablet 200 mg PO BID Label Comments: TAKE ONE TABLET BY MOUTH TWICE DAILY iron, carbonyl 45 MG tablet 45 mg PO DAILY spironolactone 25 MG tablet 25 mg PO DAILY Hold Instructions: Resume on 10/04/19. BP meds have not been needed at [facility] during admission; to be reassessed at [facility], may be restarted as needed Label Comments: TAKE ONE TABLET EVERY MORNING FOR fluid oxcarbazepine 300 MG tablet 300 mg PO BID promethazine 12.5 mg tablet 12.5 mg PO TID PRN (Reason: nausea and vomiting) Qty: 9 0RF tramadol 50 mg tablet 50 mg PO DAILY Qty: 30 0RF tizanidine 4 mg tablet 4 mg PO BID PRN (Reason: muscle spasticity) Qty: 60 0RF tizanidine [Zanaflex] 4 mg tablet 4 mg PO BID Qty: 60 2RF naloxone 4 MG spray,non-aerosol 4 mg NS DAILY PRN (Reason: oversedation) Qty: 1 2RF multivitamin Tablet 1 tab PO DAILY potassium chloride 20 mEq tablet,ER particles/crystals 1 meq PO DAILY Label Comments: TAKE ONE TABLET BY MOUTH EVERY DAY Referrals Follow up/Referrals: Omar De La Torre MD [Primary Care Provider] - See instructions Clinical Impressions Clinical Impression: Migraine aura, persistent, intractable, with status migrainosus, UTI (urinary tract infection), Hypokalemia Instructions Patient Instructions: DI for Migraine, DI for Urinary Tract Infection (UTI), Hypokalemia Print Language Print Language: Turkish Discharge ED Provider: Inderjit Yun General Adult HPI General Chief complaint: Headache Stated complaint: Phys ref, generalized weakness, post op 10/30 Time Seen by Provider: 12/04/22 15:33 History of Present Illness HPI narrative: Patient presents to the emergency department with 4-day history of progressive headache. The patient denies this being a thunderclap beginning. Denies any numbness, tingling or weakness in any particular arm or leg. She does describe generalized weakness. She states that she does have some associated neck pain. She does have a history of cervical spine Surgery. Denies any fever, chills, cough or congestion. Does describe some nausea and took Zofran without any significant improvement in his symptoms Related Data Home Medications Medication Instructions Recorded Confirmed ascorbic acid (vitamin C) 500 mg 500 mg PO DAILY Supplement 07/16/17 08/27/22 tablet carvedilol 12.5 mg tablet 12.5 mg PO BID Heart disease 07/16/17 08/27/22 cholecalciferol (vitamin D3) 10 400 unit PO DAILY Supplement 07/16/17 08/27/22 mcg (400 unit) capsule duloxetine 60 mg capsule,delayed 60 mg PO BID MOOD 03/27/18 08/27/22 release iron, carbonyl 45 mg tablet 45 mg PO DAILY Supplement 09/30/19 08/27/22 lamotrigine 200 mg tablet 200 mg PO BID MOOD 09/30/19 08/27/22 lorazepam 1 mg tablet 1 mg PO TIDP PRN Anxiety 09/30/19 08/27/22 spironolactone 25 mg tablet 25 mg PO DAILY Fluid 09/30/19 08/27/22 oxcarbazepine 300 mg tablet 300 mg PO BID mood 11/30/19 08/27/22 zol
[2022-12-04 15:41] LABS: Basophils % 0.1 % (0.1-2.0); Eosinophils % 0.2 % (0.1-12.0); Hematocrit 31.6 % (37.0-47.0); Hemoglobin 10.2 g/dL (12.2-16.2); Lymphocytes # 0.6 K/mm3 (0.7-4.5); Lymphocytes % 9.4 % (10-50); Mean Corpuscular HGB Conc 32.3 g/dL (31.8-35.4); Mean Corpuscular Hemoglobin 29.3 pg (27.0-31.2); Mean Corpuscular Volume 90.7 fl (81-99); Mean Platelet Volume 7.6 fl (7.4-10.4); Monocytes # 0.6 K/mm3 (0.1-1.0); Monocytes % 8.9 % (1.7-9.3); Neutrophils # 5.3 K/mm3 (1.8-7.8); Neutrophils % 81.5 % (37.0-80.0); Platelet Count 291 K/mm3 (142-424); Red Blood Count 3.48 M/mm3 (4.20-5.40); White Blood Count 6.6 K/mm3 (4.8-10.8)
[2022-12-04 15:48] LABS: Alanine Aminotransferase 22 U/L (12-78); Albumin Level 3.2 g/dl (3.5-5.0); Alkaline Phosphatase 132 U/L (38-126); Anion Gap 15.1 mEq/L (5-15); Aspartate Amino Transferase 33 U/L (14-36); Bilirubin,Total 0.5 mg/dl (0.2-1.3); Blood Urea Nitrogen 21 mg/dl (7-17); Calcium 7.7 mg/dl (8.4-10.2); Carbon Dioxide 27 mmol/L (22.0-30.0); Chloride 90 mmol/L (98-107); Creatinine Clearance Estimated 84 mL/min (50-200); Estimated Glomerular Filt Rate 56 ml/min (>60); GFR (African American) 68 ML/MIN (>60); Globulin 3.1 g/dL (1.3-3.2); Glucose 126 mg/dl (74-100); Potassium 3.1 mmoL/L (3.5-5.1); Sodium 129 mmol/L (136-145); Total Protein,Serum 6.3 g/dl (6.3-8.2)
--- NOTE | 2022-12-04 15:48 | PC.NURSE ---
pt SaO2 86% on RA, placed pt on O2 @ 2Lper NC, notified ER Pt now 93% on 2L
[2022-12-04 16:09] LABS: Magnesium 1.9 mg/dl (1.6-2.3)
--- NOTE | 2022-12-04 16:33 | PC.NURSE ---
contacted rad to check on status of Ct read, rad staff reports it is in locked status
--- NOTE | 2022-12-04 16:39 | PC.NURSE ---
rounded on pt at this time, pt sleeping.
[2022-12-04 18:32] LABS: Microscopic, Urine URINE MICROSCOPIC (MICROSCOPIC)
[2022-12-04 18:39] LABS: Appearance,Urine CLEAR (Clear); Bilirubin,Urine Negative (Negative); Blood, Urine 2+ (Negative); Color,Urine YELLOW (Yellow); Glucose,Urine (UA) Negative (Negative); Ketones,Urine Negative (Negative); Leukocyte Esterase,Urine 2+ (Negative); Nitrate,Urine Negative (Negative); Protein,Urine Negative (Negative); Specific Gravity, Urine <= 1.005 (1.005-1.030)
[2022-12-04 18:48] LABS: Amphetamine/Metha Screen,Urine Negative ng/ml (<1000)
[2022-12-04 18:49] LABS: Barbiturates Screen,Urine Positive ng/ml (<200)
[2022-12-04 18:50] LABS: Benzodiazepines Screen,Urine Negative ng/ml (<200); Cannabinoid Screen,Urine Negative ng/ml (<50)
[2022-12-04 18:51] LABS: Cocaine Screen,Urine Negative ng/ml (<300); Methadone Screen,Urine Negative ng/ml (<300)
[2022-12-04 18:53] LABS: Opiate Screen,Urine Positive ng/ml (<300); Phencyclidine Screen,Urine Negative ng/ml (<25)
[2022-12-04 19:01] LABS: Bacteria,Urine 2+ /lpf
== END 2022-12-04 19:55 | disposition home or self-care (01) ==
PROVIDERS: Emergency Provider Emergency Medicine; PCP Internal Medicine
DX: G43.111 Migraine with aura, intractable, with status migrainosus (principal); N39.0 Urinary tract infection, site not specified; E87.6 Hypokalemia
CPT/HCPCS: 70450; 80053; 80305; 81001; 83735; 85025; 87086; 87088; 87186; 96361; 96374; 96375; 99284; 99285

== ENCOUNTER 2022-12-25 09:00 | Outpatient (RCR) | payer BC, SELFPAY ==
--- NOTE | 2022-11-21 10:38 | HMH.SLDYSPHA ---
Speech & Language Evaluation Speech/Language Dysphagia Evaluation Start: 11/21/22 10:04 Freq: ONCE Status: Active Protocol: Document 11/21/22 10:04 SHELLY (Rec: 11/21/22 10:37 [email or web address] [id number]) Dysphagia Assess/Goals/Plan Assessment Date of Evaluation: 11/21/22 Evaluation Type Initial Certification Assessment/Problems Pt presents at [facility] Rehab services for a dysphagia evaluation per MD order following swallowing difficulties. Does Patient Qualify for Service Yes Qualify/Failure Comment Based on clinical observation, patient interview, and assessment, Kristan would benefit from further assessment to assess the stages of the swallow. Ms. Kennedy has a MBSS scheduled at [facility] for Sunday, November 27, 2022. Recommendations PHYSICIAN CERTIFICATION: The specified therapy services are required, authorized, and reviewed every 30 days. Diet Recommendations Mechanical Soft Liquid Type Recommendations Honey Consistency SL Swallow Guidelines Standard Aspiration Prec. Crush Meds Small pills w/applesauce,Crush lge pills w/applesa Dysphagia Swallow Precautions/Strategies Sitting Upright (90 deg),Small Bites and Sips,Alternate Liquids/Solids Plan Pt/Guardian verbally ack understanding Yes of dx/prognosis/goals G -code Required No Education Instructions provided Discussed clinical observation and need for further evaluation using a MBSS with pt, she expressed understanding. Pt/Caregiver able to recall information Able to recall/restate Reinforcement needed No Speech & Language HPI History Present Illness Description of Patient Problem Ms. Kennedy is a pleasant 62 year old female who presents at [facility] Rehab services for an outpatient dysphagia evaluation. In October 2022, pt received surgery for her C3-C6 anterior cervical discectomy and fusion for myelopathy. There were no intraoperative complications. Pt had a previous MBSS completed, honey thick liquids and pureed diet
== END 2022-12-25 09:05 | disposition home or self-care (01) ==
LOC: ST 09:00
PROVIDERS: PCP Internal Medicine; Visit Provider Physical Medicine & Rehabilitation
DX: M50.23 Other cervical disc displacement, cervicothoracic region (principal); R13.10 Dysphagia, unspecified
CPT/HCPCS: 92526; 92610

== ENCOUNTER 2023-03-14 11:00 | Outpatient (RCR) | payer BC, SELFPAY | END 2023-03-14 11:05 | disposition home or self-care (01) | LOC: OT 11:00 | PROVIDERS: PCP Internal Medicine; Visit Provider Physical Medicine & Rehabilitation | DX: R41.89 Other symptoms and signs involving cognitive functions and awareness; R13.10 Dysphagia, unspecified; M50.021 Cervical disc disorder at C4-C5 level with myelopathy; M50.022 Cervical disc disorder at C5-C6 level with myelopathy | CPT/HCPCS: 97010; 97014; 97110; 97140; 97164; 97166; 97530; G0283 ==

== ENCOUNTER → 2023-03-19 13:11 | Outpatient (CLI) | payer BC, SELFPAY ==
[2023-03-19 15:24] LABS: Chloride 100 mmol/L (98-107); Potassium 4.3 mmoL/L (3.5-5.1); Sodium 138 mmol/L (136-145)
[2023-03-19 15:27] LABS: Alanine Aminotransferase 21 U/L (12-78); Albumin Level 3.9 g/dl (3.5-5.0); Albumin/Globulin Ratio 1.3 (1.1-1.8); Alkaline Phosphatase 98 U/L (38-126); Anion Gap 9.3 mEq/L (5-15); Aspartate Amino Transferase 33 U/L (14-36); Bilirubin,Total 0.4 mg/dl (0.2-1.3); Blood Urea Nitrogen 14 mg/dl (7-17); Carbon Dioxide 33 mmol/L (22.0-30.0); Cholesterol 169 mg/dl (140-200); Estimated Glomerular Filt Rate 85 ml/min (>60); GFR (African American) 102 ML/MIN (>60); Total Protein,Serum 6.9 g/dl (6.3-8.2); Triglycerides 62 mg/dl (30-150); VLDL Cholesterol 12 mg/dL (0-40)
[2023-03-19 15:28] LABS: Calcium 9.4 mg/dl (8.4-10.2); Chol/HDL Ratio 2.3 (1-3.5); Glucose 86 mg/dl (74-100); HDL Cholesterol 75 mg/dl (40-60)
[2023-03-19 15:39] LABS: Direct LDL Cholesterol 69.22 mg/dL (100-129)
[2023-03-19 15:59] LABS: Thyroid Stimulating Hormone 2.63 uIU/mL (0.465-4.68)
[2023-03-19 16:55] LABS: Basophils % 0.2 % (0.1-2.0); Eosinophils % 3.7 % (0.1-12.0); Hematocrit 37.1 % (37.0-47.0); Hemoglobin 11.7 g/dL (12.2-16.2); Lymphocytes # 1.3 K/mm3 (0.7-4.5); Lymphocytes % 29.2 % (10-50); Mean Corpuscular HGB Conc 31.6 g/dL (31.8-35.4); Mean Corpuscular Hemoglobin 29.5 pg (27.0-31.2); Mean Corpuscular Volume 93.2 fl (81-99); Mean Platelet Volume 8.5 fl (7.4-10.4); Monocytes % 7.8 % (1.7-9.3); Neutrophils # 2.6 K/mm3 (1.8-7.8); Platelet Count 331 K/mm3 (142-424); Red Blood Count 3.98 M/mm3 (4.20-5.40); Red Cell Distribution Width 13.8 % (11.5-17.5); White Blood Count 4.3 K/mm3 (4.8-10.8)
[2023-03-19 16:56] LABS: Eosinophils # 0.2 K/mm3 (0.0-0.4); Monocytes # 0.3 K/mm3 (0.1-1.0)
[2023-03-19 17:14] LABS: Hemoglobin A1C 5.2 % (4.0-6.0)
== END ==
PROVIDERS: PCP Internal Medicine; Visit Provider Internal Medicine
DX: E11.42 Type 2 diabetes mellitus with diabetic polyneuropathy (principal); E78.5 Hyperlipidemia, unspecified; I10 Essential (primary) hypertension; F41.9 Anxiety disorder, unspecified; K58.0 Irritable bowel syndrome with diarrhea; K59.00 Constipation, unspecified; M15.0 Primary generalized (osteo)arthritis; M81.0 Age-related osteoporosis without current pathological fracture; M48.02 Spinal stenosis, cervical region
CPT/HCPCS: 80053; 80061; 83036; 84443; 85025

== ENCOUNTER → 2023-05-05 16:54 | Outpatient (CLI) | payer BC, SELFPAY ==
--- NOTE | 2023-05-05 16:58 | XR_ITS ---
FINAL REPORT CLINICAL HISTORY: DEFORMITY FINDINGS: Right foot Three views were obtained. There is no acute fracture or dislocation. There are moderate to severe degenerative changes in the midfoot. Plantar calcaneal spur is identified. IMPRESSION: Degenerative changes without acute process. Reviewed, Interpreted and Dictated by Horacio Montejo III, MD Transcribed by Miladys Uribe Authenticated and [facility]
== END ==
PROVIDERS: PCP Internal Medicine; Visit Provider Internal Medicine
DX: M79.671 Pain in right foot (principal); M21.6X1 Other acquired deformities of right foot
CPT/HCPCS: 73630

== ENCOUNTER 2023-05-21 14:00 | Outpatient (RCR) | payer BC, SELFPAY | END 2023-05-21 15:20 | disposition home or self-care (01) | LOC: PT 14:00 | PROVIDERS: PCP Internal Medicine; Visit Provider Physical Medicine & Rehabilitation | DX: R26.89 Other abnormalities of gait and mobility; M50.021 Cervical disc disorder at C4-C5 level with myelopathy; R53.1 Weakness | CPT/HCPCS: 97010; 97014; 97110; 97163; 97164; 97530; G0283 ==

== ENCOUNTER → 2023-06-02 08:25 | Outpatient (CLI) | payer BC, SELFPAY ==
--- NOTE | 2023-06-02 08:31 | XR_ITS ---
FINAL REPORT CLINICAL HISTORY: Foot Pain COMPARISON: None FINDINGS: RIGHT FOOT: Three views of the right foot were obtained. There is no acute fracture or dislocation. The joint spaces are intact. There is moderate degenerative change in the right foot, greatest in the midfoot. A plantar calcaneal spur is identified. There are presumed chronic fractures with fusion of the PIP joints involving the second and third digits of the foot. There is an osteochondral lesion in the head of the second metatarsal. Pes planus is present. There is no soft tissue abnormality. IMPRESSION: Moderate degenerative change, most prominent in the midfoot. Presumed chronic fractures with fusion of the PIP joints involving the second and third digits. Osteochondral lesion in the head of the second metatarsal. Pes planus. Reviewed, Interpreted and Dictated by Horacio Montejo III, MD Transcribed by Dary Leavitt Authenticated and . [facility]
== END ==
PROVIDERS: PCP Internal Medicine; Visit Provider Nurse Practitioner Family
DX: M79.671 Pain in right foot (principal)
CPT/HCPCS: 73630

== ENCOUNTER → 2023-08-04 09:42 | Outpatient (POV) | payer BC, SELFPAY ==
--- NOTE | 2023-08-04 10:31 | EXP.PAIN.PRO ---
Procedure Date: 08/04/23 Time: 10:31 Anesthesiologist:: Marisa Villagomez APRN Complications:: None Pre-procedure Diagnosis:: degenerative disc disease of lumbar spine with lumbar radiculopathy symptoms, neck pain, bilateral wrist pain, hip pain Post-procedure Diagnosis:: Sign Indications for Procedure:: Patient is a pleasant 63-year-old female who presents today for intrathecal adjustment and reprogramming. The patient is being treated for degenerative disc disease of lumbar spine with lumbar radiculopathy symptoms, neck pain, bilateral wrist pain, hip pain. Today she rates her pain an 8 out of 10. Patient states she continues to have pain throughout her back as well as her joints all over. Patient denies any recent injury or trauma. She does state that she continues to have times where she stumbles. patient is currently being managed with Dilaudid 20 mg/mL with a daily dose of 5.068 mg/day and bupivacaine 20 mg/mL with a daily dose of 5.068 mg/day. Patient denies any side effects from this medication. She is currently managed with lorazepam 1 mg 4 times a day, Ambien 10 mg daily from her primary care provider. Patient is asking regarding medical marijuana. Patient does states she is currently waiting for a shoe that is specifically made to help with her misalignment and leg lengths. Patient does see Dr. Lo for this. Patient does also states that she has an upcoming neurologist appointment for EMG testing that Dr. Friedman's office is requesting. Patient does use a rolling walker for help with ambulation. Her Daniel has been reviewed and is appropriate. Physical exam General: Alert and oriented x3, no acute distress, pleasant and cooperative Lungs: Respirations even and unlabored, symmetrical chest expansion Eyes: PERRL Musculoskeletal: Flexion and extension of lumbar [spine] somewhat guarded secondary to pain, [antalgic gait noted] Neurological: Speech clear, no gross sensory deficit Skin: Incision site clean, dry, well approximated with minimal erythema noted Procedure Details:: Informed consent was obtained and the risk and benefits of the procedure were explained to the patient. Patient was taken to the procedure room where noninvasive monitoring was placed including noninvasive blood pressure cuff and pulse oximeter. Patient's pump was interrogated and was reprogrammed to Dilaudid 5.325 mg/day and bupivacaine 5.325 mg/day. The patient tolerated the procedure well with no complications. Plan and Disposition:: I have discussed with the patient that Dr. Oritz does have some CBD/THC products at the [place] office if this is something that she would like to try. I have counseled the patient that she can talk to her primary care provider regarding the medical marijuana however we do not do medical cards for this at this time. I have counseled her that as long as we have clear communication if this is something that she is using under proper provider guidance that we will have discussions regarding decreasing medications in combination with this. Patient acknowledges understanding of this. Patient tolerated her intrathecal increase with no complications and was discharged neurologically intact. Patient has been instructed to contact the clinic with any concerns before the next appointment. Dr. Ortiz has reviewed this note and agrees with this plan of care. This note was dictated using voice recognition software and make contain errors or omissions. -- It Is medically necessary for this patient to continue to have their intrathecal pump refilled at regular intervals. This patient had an intrathecal pain pump implanted after meeting criteria of chronic intractable pain for greater than 3 months and failing conservative treatments. Patient has committed and been compliant to the treatment plan and all planned follow up care. Since implantation of the intrathecal pain pump, the patient has had decreased pain and been more functional. Oral medications have been reduced including intake of oral opioids. Patient continues to do well with intrathecal therapy with decrease in pain symptoms and increase in functional status. Stopping intrathecal medications can lead to life threatening withdrawal, seizures, cardiac arrest, severe pain, and possible . Pumps that are not refilled at regular intervals can be damages and cause and need for replacement. We continually titrate dose and concentration to optimize pain relief and function. We are limited in concentration for certain drugs to safely deliver medications through the pump and stay within the recommendations from the Polyanalges[employer] Consensus Committee Guidelines. Depending on dose and concentration these pumps may need to be refilled sooner than 3 months as we titrate.
[2023-08-04 12:37] VITALS: BP 138/68; PULSE 81; RESP 18; O2SAT 94; BMI 32.8
== END | disposition home or self-care (01) ==
PROVIDERS: PCP Internal Medicine; Visit Provider Nurse Practitioner Family
DX: M51.16 Intervertebral disc disorders with radiculopathy, lumbar region (principal); M25.531 Pain in right wrist; M25.532 Pain in left wrist; M25.559 Pain in unspecified hip; Z97.8 Presence of other specified devices; Z45.1 Encounter for adjustment and management of infusion pump
CPT/HCPCS: 62368; 99213; G0463

== ENCOUNTER 2023-08-19 14:28 | Outpatient (CLI) | payer BC, SELFPAY ==
[2023-08-19 15:34] LABS: Basophils % 0.3 % (0.1-2.0); Eosinophils # 0.1 K/mm3 (0.0-0.4); Eosinophils % 2.6 % (0.1-12.0); Hematocrit 36.5 % (37.0-47.0); Lymphocytes # 1.2 K/mm3 (0.7-4.5); Mean Corpuscular HGB Conc 32.9 g/dL (31.8-35.4); Mean Corpuscular Hemoglobin 30.4 pg (27.0-31.2); Mean Corpuscular Volume 92.6 fl (81-99); Mean Platelet Volume 8.1 fl (7.4-10.4); Monocytes # 0.4 K/mm3 (0.1-1.0); Monocytes % 8.8 % (1.7-9.3); Neutrophils # 2.8 K/mm3 (1.8-7.8); Neutrophils % 61.2 % (37.0-80.0); Platelet Count 289 K/mm3 (142-424); Red Blood Count 3.93 M/mm3 (4.20-5.40); Red Cell Distribution Width 13.4 % (11.5-17.5); White Blood Count 4.6 K/mm3 (4.8-10.8)
[2023-08-19 16:19] LABS: Hemoglobin A1C 5.5 % (4.0-6.0)
[2023-08-19 16:26] LABS: Creatinine,Urine Random 82 mg/dL (Not Estab.)
[2023-08-19 16:28] LABS: Microalbumin/Creatinine Ratio 31.7
[2023-08-19 16:42] LABS: Alanine Aminotransferase 24 U/L (12-78); Albumin Level 4.1 g/dl (3.5-5.0); Albumin/Globulin Ratio 1.6 (1.1-1.8); Alkaline Phosphatase 92 U/L (38-126); Anion Gap 10.8 mEq/L (5-15); Aspartate Amino Transferase 33 U/L (14-36); Bilirubin,Total 0.4 mg/dl (0.2-1.3); Blood Urea Nitrogen 18 mg/dl (7-17); Calcium 9.3 mg/dl (8.4-10.2); Carbon Dioxide 33 mmol/L (22.0-30.0); Chloride 99 mmol/L (98-107); Chol/HDL Ratio 2.4 (1-3.5); Cholesterol 166 mg/dl (140-200); Estimated Glomerular Filt Rate 85 ml/min (>60); GFR (African American) 102 ML/MIN (>60); Globulin 2.5 g/dL (1.3-3.2); Glucose 107 mg/dl (74-100); HDL Cholesterol 68 mg/dl (40-60); Potassium 3.8 mmoL/L (3.5-5.1); Sodium 139 mmol/L (136-145); Total Protein,Serum 6.6 g/dl (6.3-8.2); Triglycerides 50 mg/dl (30-150); VLDL Cholesterol 10 mg/dL (0-40)
[2023-08-19 16:53] LABS: Direct LDL Cholesterol 73.49 mg/dL (100-129)
[2023-08-19 16:57] LABS: 25-OH Vitamin D, Total 21.7 ng/mL (30-100)
== END 2023-08-19 23:59 ==
LOC: LAB.DROPOF 14:29
PROVIDERS: PCP Internal Medicine; Visit Provider Internal Medicine
DX: E11.42 Type 2 diabetes mellitus with diabetic polyneuropathy (principal); I10 Essential (primary) hypertension; I87.2 Venous insufficiency (chronic) (peripheral); E78.5 Hyperlipidemia, unspecified; D50.9 Iron deficiency anemia, unspecified; K59.00 Constipation, unspecified; M15.0 Primary generalized (osteo)arthritis; M81.0 Age-related osteoporosis without current pathological fracture
CPT/HCPCS: 80053; 80061; 82043; 82306; 82570; 83036; 85025

== ENCOUNTER 2023-09-22 13:26 | Outpatient (CLI) | payer BC, SELFPAY ==
[2023-09-22 13:58] LABS: Basophils % 0.5 % (0.1-2.0); Eosinophils # 0.1 K/mm3 (0.0-0.4); Hematocrit 39.1 % (37.0-47.0); Hemoglobin 12.5 g/dL (12.2-16.2); Lymphocytes # 1.2 K/mm3 (0.7-4.5); Lymphocytes % 30.4 % (10-50); Mean Corpuscular HGB Conc 32.1 g/dL (31.8-35.4); Mean Corpuscular Hemoglobin 30.4 pg (27.0-31.2); Mean Corpuscular Volume 94.7 fl (81-99); Mean Platelet Volume 7.4 fl (7.4-10.4); Monocytes # 0.2 K/mm3 (0.1-1.0); Monocytes % 6.4 % (1.7-9.3); Neutrophils # 2.3 K/mm3 (1.8-7.8); Neutrophils % 60.6 % (37.0-80.0); Platelet Count 302 K/mm3 (142-424); Red Blood Count 4.13 M/mm3 (4.20-5.40); Red Cell Distribution Width 13.5 % (11.5-17.5); White Blood Count 3.8 K/mm3 (4.8-10.8)
[2023-09-22 14:05] LABS: Hemoglobin A1C 5.8 % (4.0-6.0)
[2023-09-22 14:30] LABS: Erythrocyte Sedimentation Rate 22 mm/hr (0-30)
[2023-09-22 15:00] LABS: Alanine Aminotransferase 24 U/L (12-78); Albumin Level 4.3 g/dl (3.5-5.0); Albumin/Globulin Ratio 1.7 (1.1-1.8); Alkaline Phosphatase 86 U/L (38-126); Anion Gap 8.1 mEq/L (5-15); Aspartate Amino Transferase 39 U/L (14-36); Bilirubin,Total 0.4 mg/dl (0.2-1.3); Blood Urea Nitrogen 13 mg/dl (7-17); Calcium 9.5 mg/dl (8.4-10.2); Carbon Dioxide 35 mmol/L (22.0-30.0); Chloride 99 mmol/L (98-107); Creatine Kinase 171 U/L (30-135); Estimated Glomerular Filt Rate 85 ml/min (>60); GFR (African American) 102 ML/MIN (>60); Globulin 2.5 g/dL (1.3-3.2); Glucose 97 mg/dl (74-100); Potassium 4.1 mmoL/L (3.5-5.1); Sodium 138 mmol/L (136-145); Total Protein,Serum 6.8 g/dl (6.3-8.2)
[2023-09-22 15:17] LABS: T4 (Thyroxine) 9.4 ug/dl (5.53-11.0)
[2023-09-22 15:30] LABS: Thyroid Stimulating Hormone 1.65 uIU/mL (0.465-4.68)
[2023-09-22 15:50] LABS: Vitamin B12 171 pg/mL (239-931)
[2023-09-23 14:13] LABS: Immunoglobulin A, Qn 160 mg/dL (87-352); Immunoglobulin G, Qn 1217 mg/dL (586-1602); Immunoglobulin M, Qn 69 mg/dL (26-217)
== END 2023-09-22 23:59 ==
LOC: LAB 13:27
PROVIDERS: PCP Internal Medicine; Visit Provider Psychiatry & Neurology Clinical Neurophysiology
DX: E11.9 Type 2 diabetes mellitus without complications (principal); E87.6 Hypokalemia; I10 Essential (primary) hypertension; Z79.899 Other long term (current) drug therapy; I25.10 Atherosclerotic heart disease of native coronary artery without angina pectoris
CPT/HCPCS: 36415; 80053; 82550; 82607; 82784; 83036; 84436; 84443; 85025; 85651; 86334

== ENCOUNTER 2023-12-19 15:15 | Outpatient (CLI) | payer BC, SELFPAY ==
[2023-12-19 14:55] LABS: Hemoglobin A1C 5.7 % (4.0-6.0)
== END 2023-12-19 23:59 | disposition home or self-care (01) ==
LOC: LAB.DROPOF 15:16
PROVIDERS: PCP Internal Medicine; Visit Provider Internal Medicine
DX: E11.9 Type 2 diabetes mellitus without complications (principal)
CPT/HCPCS: 83036

== ENCOUNTER 2023-12-26 09:00 | Outpatient (RCR) | payer BC, SELFPAY | END 2023-12-26 09:05 | disposition home or self-care (01) | LOC: PT 09:00 | PROVIDERS: Visit Provider Psychiatry & Neurology Clinical Neurophysiology | DX: R53.1 Weakness (principal) | CPT/HCPCS: 97010; 97014; 97110; 97163; 97164; 97530; G0283 ==

== ENCOUNTER 2024-02-06 14:23 | Outpatient (CLI) | payer BC, SELFPAY ==
--- NOTE | 2024-02-06 14:27 | XR_ITS ---
FINAL REPORT CLINICAL HISTORY: Foot Pain COMPARISON: 06/02/2023 FINDINGS: RIGHT FOOT 3 views of the right foot were obtained. There is no acute fracture or dislocation. There is ankylosis at multiple joints involving the 2nd through 4th digits. This can be seen with psoriatic arthritis or ankylosing spondylitis. There are moderate degenerative changes in the midfoot. There is moderate degenerative change of the 1st MTP joint and 2nd MTP joint, both increased from prior. Soft tissues are unremarkable. IMPRESSION: No acute findings. Increased degenerative changes of the 1st and 2nd MTP joints. Other areas of chronic arthritic disease including ankylosing of the digits. Reviewed, Interpreted and Dictated by Herbert Jeronimo MD Transcribed by Sana Shahid Authenticated and [facility]
--- NOTE | 2024-02-06 14:27 | XR_ITS ---
FINAL REPORT CLINICAL HISTORY: Ankle Pain COMPARISON: None FINDINGS: RIGHT ANKLE 3 views of the right ankle were obtained. There is no acute fracture or dislocation. Mild arthritic changes are noted. There is mild calcaneal spurring. Soft tissues are unremarkable. IMPRESSION: Chronic changes without acute bony abnormality. Reviewed, Interpreted and Dictated by Herbert Jeronimo MD Transcribed by Sana Shahid Authenticated and [facility]
== END 2024-02-06 23:59 | disposition home or self-care (01) ==
LOC: RAD 14:25
PROVIDERS: PCP Internal Medicine; Visit Provider Podiatrist
DX: M79.671 Pain in right foot (principal); M25.571 Pain in right ankle and joints of right foot
CPT/HCPCS: 73610; 73630

== ENCOUNTER 2024-03-08 12:11 | Outpatient (CLI) | payer BC, SELFPAY ==
--- NOTE | 2024-03-08 12:18 | XR_ITS ---
FINAL REPORT CLINICAL HISTORY: Left foot pain and swelling FINDINGS: LEFT FOOT Three views of the left foot demonstrate no acute fracture or dislocation. Sclerosis is seen in the tarsonavicular bone. There are mild hypertrophic changes of the first and second MTPs. A small plantar spurs noted. The visualized joint spaces are normally aligned. The soft tissues are unremarkable. IMPRESSION: Degenerative changes without acute bony abnormality. Reviewed, Interpreted and Dictated by Houston Elizabeth MD Transcribed by Leticia Schuster Authenticated and [facility]
--- NOTE | 2024-03-08 12:33 | CA_ITS ---
FINAL REPORT TECHNIQUE: Ultrasound images of the deep venous system were obtained from the left groin to the calf veins. CLINICAL HISTORY: Pain and swelling in left lower extremity x 1 week. Patient states she falls frequently due to balance issues. HTN, DM, obesity. FINDINGS: The deep venous system is normally compressible. Normal flow is identified. IMPRESSION: No evidence of left lower extremity DVT. Reviewed, Interpreted and Dictated by Houston Elizabeth MD Transcribed by Leticia Schuster Authenticated and [facility]
[2024-03-08 12:41] LABS: Basophils % 0.5 % (0.1-2.0); Eosinophils # 0.1 K/mm3 (0.0-0.4); Eosinophils % 2.4 % (0.1-12.0); Lymphocytes # 1.1 K/mm3 (0.7-4.5); Lymphocytes % 23.7 % (10-50); Mean Corpuscular HGB Conc 30.7 g/dL (31.8-35.4); Mean Corpuscular Hemoglobin 29.6 pg (27.0-31.2); Mean Corpuscular Volume 96.3 fl (81-99); Mean Platelet Volume 7.7 fl (7.4-10.4); Monocytes # 0.3 K/mm3 (0.1-1.0); Monocytes % 6.8 % (1.7-9.3); Neutrophils # 3.2 K/mm3 (1.8-7.8); Neutrophils % 66.5 % (37.0-80.0); Platelet Count 345 K/mm3 (142-424); Red Blood Count 4.05 M/mm3 (4.20-5.40); Red Cell Distribution Width 13.1 % (11.5-17.5); White Blood Count 4.8 K/mm3 (4.8-10.8)
[2024-03-08 13:15] LABS: Alanine Aminotransferase 27 U/L (12-78); Albumin Level 3.7 g/dl (3.5-5.0); Albumin/Globulin Ratio 1.2 (1.1-1.8); Alkaline Phosphatase 97 U/L (38-126); Anion Gap 8.1 mEq/L (5-15); Aspartate Amino Transferase 41 U/L (14-36); Bilirubin,Total 0.3 mg/dl (0.2-1.3); Blood Urea Nitrogen 10 mg/dl (7-17); Calcium 9.1 mg/dl (8.4-10.2); Carbon Dioxide 31 mmol/L (22.0-30.0); Chloride 102 mmol/L (98-107); Estimated Glomerular Filt Rate 101 ml/min (>60); GFR (African American) 122 ML/MIN (>60); Globulin 3.1 g/dL (1.3-3.2); Glucose 110 mg/dl (74-100); Potassium 4.1 mmoL/L (3.5-5.1); Sodium 137 mmol/L (136-145); Total Protein,Serum 6.8 g/dl (6.3-8.2)
[2024-03-08 13:43] LABS: Erythrocyte Sedimentation Rate 45 mm/hr (0-30)
== END 2024-03-08 23:59 | disposition home or self-care (01) ==
LOC: RAD 12:13
PROVIDERS: PCP Internal Medicine; Visit Provider Internal Medicine
DX: L03.116 Cellulitis of left lower limb (principal); L03.032 Cellulitis of left toe; M79.605 Pain in left leg; R60.0 Localized edema; B95.62 Methicillin resistant Staphylococcus aureus infection as the cause of diseases classified elsewhere; B96.89 Other specified bacterial agents as the cause of diseases classified elsewhere
CPT/HCPCS: 73630; 80053; 85025; 85651; 87070; 87077; 87186; 87205; 93971

== ENCOUNTER 2024-03-09 08:48 | Outpatient (CLI) | payer BC, SELFPAY ==
--- NOTE | 2024-03-09 09:05 | MR_ITS ---
FINAL REPORT CLINICAL HISTORY: Evaluate for STM over dorsal midfoot COMPARISON: None FINDINGS: Multiplanar MR imaging of the right foot was performed with and without contrast. The Achilles tendon is intact. The plantar fascia is intact. There are moderate hypertrophic changes of the intertarsal and tarsometatarsal joints. There is heterogeneous soft tissue over the dorsal aspect of the intertarsal joints, particularly at the level of the articulation between the tarsal navicular and middle cuneiform. This measures approximately 2.5 cm in greatest dimension and demonstrates mild increased signal on the inversion recovery images. There is mild heterogeneous enhancement on the post infusion images. There are prominent osteophytes along the superior margin of the tarsal navicular. Marrow edema is noted in the proximal 2nd metatarsal. No bony mass is identified. The flexor and extensor tendons are intact. The intrinsic muscles are unremarkable. There is mild soft tissue edema about the ankle. IMPRESSION: Prominent hypertrophic changes of the intertarsal and tarsometatarsal joints which may be related to early neuropathic changes. Please correlate with any underlying history of diabetes. Prominent osteophytes along the dorsal margin of the tarsal navicular. Heterogeneous soft tissue over the dorsum of the foot, presumably correlating to patient's clinical abnormality. This may be related to pannus formation or site of recent trauma/irritation. Mild marrow edema in the proximal 2nd metatarsal may be due to underlying ligament instability. Reviewed, Interpreted and Dictated by Houston Elizabeth MD Transcribed by Sana Shahid Authenticated and [facility]
--- NOTE | 2024-03-09 09:45 | XR_ITS ---
FINAL REPORT CLINICAL HISTORY: pain pump placement eval prior to foot MRI FINDINGS: 2 VIEW ABDOMEN 2 views of the abdomen were obtained to evaluate for pain pump placement. The pain pump demonstrates a 20 degree tilt in the Z axis. There is posterior fusion hardware bridging L3-4 and L4-5. A left hip prosthesis is noted. IMPRESSION: Pain pump demonstrates a 20 degree tilt in the Z axis. Reviewed, Interpreted and Dictated by Houston Elizabeth MD Transcribed by Gina Erickson Authenticated and [facility]
[2024-03-09] MEDS: SODIUM CHLORIDE 0.9% 10ML SYR (RAD ONLY) 10 ML IV (12:08)
[2024-03-09] MEDS: GADOTERIDOL INJ 20ML SYRINGE 20 ML IV (12:08)
== END 2024-03-09 23:59 | disposition home or self-care (01) ==
LOC: RAD 08:49
PROVIDERS: PCP Internal Medicine; Visit Provider Podiatrist
DX: M79.671 Pain in right foot (principal); M79.89 Other specified soft tissue disorders; Z97.8 Presence of other specified devices
CPT/HCPCS: 73720; 74019; A9576

== ENCOUNTER 2024-03-29 10:33 | Outpatient (CLI) | payer BC, SELFPAY | END 2024-03-29 23:59 | disposition home or self-care (01) | LOC: LAB.DROPOF 03-31 10:33 | PROVIDERS: PCP Internal Medicine; Visit Provider Internal Medicine | DX: R60.0 Localized edema (principal) | CPT/HCPCS: 80048 ==

== ENCOUNTER 2024-03-29 16:41 | Outpatient (CLI) | payer BC, SELFPAY ==
--- NOTE | 2024-03-29 16:45 | XR_ITS ---
PROCEDURE INFORMATION: Exam: XR Right Shoulder Exam date and time: 03/29/2024 4:46 PM Age: 64 years old Clinical indication: Pain; Shoulder; Right; Additional info: Right shoulder pain post fall TECHNIQUE: Imaging protocol: Radiologic exam of the right shoulder. Views: 2 or more views. COMPARISON: CR XR SHOULDER RT MIN 2V 09/29/2019 5:29 PM FINDINGS: Limitations: The patient is wearing a bra which minimally limits the study. Bones/joints: The glenohumeral joint shows mild joint space narrowing. There are small osteophytes at the joint margins, particularly at the inferior aspect of the humeral head and the glenoid. Subchondral sclerosis is noted at the humeral head and glenoid. The acromioclavicular (AC) joint also demonstrates mild joint space narrowing and small osteophytes. No acute fracture or dislocation is identified. The visualized portions of the ribs, scapula, and clavicle are intact and demonstrate normal bone density. Soft tissues: The soft tissues appear unremarkable. No evidence of significant soft tissue swelling or calcification. IMPRESSION: 1. Mild degenerative changes of the glenohumeral and acromioclavicular joints consistent with early osteoarthritis. 2. No evidence of acute osseous injury or significant soft tissue abnormality.
[2024-03-29 17:37] LABS: Chloride 102 mmol/L (98-107); Sodium 137 mmol/L (136-145)
[2024-03-29 17:38] LABS: Potassium 3.9 mmoL/L (3.5-5.1)
[2024-03-29 17:40] LABS: Blood Urea Nitrogen 14 mg/dl (7-17); Estimated Glomerular Filt Rate 72 ml/min (>60); GFR (African American) 87 ML/MIN (>60)
[2024-03-29 17:41] LABS: Anion Gap 4.9 mEq/L (5-15); Calcium 8.9 mg/dl (8.4-10.2); Carbon Dioxide 34 mmol/L (22.0-30.0); Glucose 91 mg/dl (74-100)
== END 2024-03-29 23:59 | disposition home or self-care (01) ==
LOC: RAD 16:42
PROVIDERS: PCP Internal Medicine; Visit Provider Internal Medicine
DX: M25.511 Pain in right shoulder (principal); R60.0 Localized edema
CPT/HCPCS: 73030; 80048

== ENCOUNTER 2024-04-05 10:50 | Outpatient (CLI) | payer BC, SELFPAY ==
[2024-04-05 11:16] LABS: Basophils % 0.5 % (0.1-2.0); Eosinophils # 0.1 K/mm3 (0.0-0.4); Eosinophils % 2.2 % (0.1-12.0); Hematocrit 37.8 % (37.0-47.0); Hemoglobin 11.9 g/dL (12.2-16.2); Lymphocytes % 19.6 % (10-50); Mean Corpuscular HGB Conc 31.4 g/dL (31.8-35.4); Mean Corpuscular Hemoglobin 29.6 pg (27.0-31.2); Mean Corpuscular Volume 94.2 fl (81-99); Mean Platelet Volume 8.2 fl (7.4-10.4); Monocytes # 0.4 K/mm3 (0.1-1.0); Monocytes % 8.2 % (1.7-9.3); Neutrophils # 3.5 K/mm3 (1.8-7.8); Neutrophils % 69.5 % (37.0-80.0); Platelet Count 359 K/mm3 (142-424); Red Blood Count 4.01 M/mm3 (4.20-5.40); Red Cell Distribution Width 13.5 % (11.5-17.5)
[2024-04-05 11:41] LABS: Erythrocyte Sedimentation Rate 65 mm/hr (0-30)
[2024-04-05 11:49] LABS: Uric Acid 6.1 mg/dl (2.5-6.2)
[2024-04-05 12:06] LABS: C-Reactive Protein 3.5 mg/L (0-4)
[2024-04-05 12:23] LABS: Thyroid Stimulating Hormone 0.94 uIU/mL (0.465-4.68)
[2024-04-05 12:59] LABS: Vitamin B12 344 pg/mL (239-931)
[2024-04-05 13:03] LABS: Folate > 20.00 ng/mL
[2024-04-06 09:20] LABS: Chloride 103 mmol/L (98-107); Sodium 136 mmol/L (136-145)
[2024-04-06 09:23] LABS: Blood Urea Nitrogen 13 mg/dl (7-17); Calcium 9.3 mg/dl (8.4-10.2); Carbon Dioxide 31 mmol/L (22.0-30.0); Estimated Glomerular Filt Rate 101 ml/min (>60); GFR (African American) 122 ML/MIN (>60); Glucose 144 mg/dl (74-100)
[2024-04-17 19:08] LABS: 1,25 Dihydroxy Vitamin D 54 pg/mL (.); 1,25-Dihydroxy, Vitamin D-2 <10 pg/mL (.); 1,25-Dihydroxy, Vitamin D-3 54 pg/mL (.)
== END 2024-04-05 23:59 | disposition home or self-care (01) ==
LOC: LAB 10:51
PROVIDERS: PCP Internal Medicine; Visit Provider Podiatrist
DX: M79.89 Other specified soft tissue disorders (principal); M79.673 Pain in unspecified foot; M19.071 Primary osteoarthritis, right ankle and foot; M19.072 Primary osteoarthritis, left ankle and foot; M89.8X7 Other specified disorders of bone, ankle and foot; L84 Corns and callosities; R60.0 Localized edema; I87.2 Venous insufficiency (chronic) (peripheral)
CPT/HCPCS: 36415; 80048; 82607; 82652; 82746; 84443; 84550; 85025; 85651; 86140

== ENCOUNTER 2024-04-11 19:26 | Emergency (ER) | payer BC, SELFPAY ==
--- NOTE | 2024-04-11 19:42 | XR_ITS ---
PROCEDURE INFORMATION: Exam: XR Right Hip Exam date and time: 04/11/2024 8:02 PM Age: 64 years old Clinical indication: Hip pain; Right hip; Additional info: Pain with minimal rom, eval joint space TECHNIQUE: Imaging protocol: Radiologic exam of the right hip. Views: 2 or 3 views hip with pelvis when performed. Total images: 2 COMPARISON: SD XR ABDOMEN MIN 2V 03/09/2024 9:56 AM FINDINGS: Bones/joints: Mild osteopenia. No acute fracture or joint dislocation. No significant degenerative arthropathy. Enthesophytes at the greater trochanter. Visualized pelvic ring is intact. No concerning bone lesions. Soft tissues: Unremarkable soft tissues. IMPRESSION: Negative right hip.
--- NOTE | 2024-04-11 19:42 | XR_ITS ---
PROCEDURE INFORMATION: Exam: XR Right Shoulder Exam date and time: 04/11/2024 8:02 PM Age: 64 years old Clinical indication: Pain; Shoulder; Right; Additional info: Pain with minimal rom, eval joint space TECHNIQUE: Imaging protocol: Radiologic exam of the right shoulder. Views: 2 or more views. Total images: 3 COMPARISON: CR XR SHOULDER RT MIN 2V 03/29/2024 4:46 PM FINDINGS: Bones/joints: Mild osteopenia. No acute fracture, joint dislocation, or AC joint separation. Mild degenerative change glenohumeral joint and AC joint space. Benign sclerotic bone island in the humeral head. Subacromial space is preserved. No concerning bone lesions or calcifications. Soft tissues: Unremarkable soft tissues. IMPRESSION: 1. No acute osseous abnormality. 2. Mild degenerative arthropathy.
--- NOTE | 2024-04-11 19:42 | XR_ITS ---
PROCEDURE INFORMATION: Exam: XR Left Shoulder Exam date and time: 04/11/2024 8:02 PM Age: 64 years old Clinical indication: Pain; Shoulder; Left; Additional info: Pain with minimal rom, eval joint space TECHNIQUE: Imaging protocol: Radiologic exam of the left shoulder. Views: 2 or more views. Total images: 3 COMPARISON: CR XR CHEST PORTABLE 09/29/2019 7:03 PM FINDINGS: Bones/joints: Mild osteopenia. No acute fracture, joint dislocation, or AC joint separation. Mild degenerative arthropathy glenohumeral joint and AC joint space. Subacromial space is preserved. No concerning bone lesions or calcifications. Status post multilevel anterior cervical fusion. Lungs: Incidental calcified AP window or left hilar lymph node. Calcified left basilar granuloma and mild left basilar atelectasis. Soft tissues: Unremarkable soft tissues. IMPRESSION: 1. No acute osseous abnormality. 2. Mild degenerative arthropathy.
--- NOTE | 2024-04-11 19:42 | XR_ITS ---
PROCEDURE INFORMATION: Exam: XR Left Hip Exam date and time: 04/11/2024 8:02 PM Age: 64 years old Clinical indication: Hip pain; Left hip; Additional info: Pain with minimal rom, eval joint space TECHNIQUE: Imaging protocol: Radiologic exam of the left hip. Views: 2 or 3 views hip with pelvis when performed. Total images: 3 COMPARISON: CT HIP LT WO CON 01/18/2021 4:11 AM FINDINGS: Tubes, catheters and devices: Implanted medical services assistant/pain pump, superimposed on the right iliac crest. Bones/joints: Status post left total hip arthroplasty. Additional fixation hardware along the lateral anteriorly iliac spine. Chronic expansion of the left acetabulum with chronic loosening caudal to the acetabular component of the prosthesis, unchanged from CT January 18, 2021. Remote detached enthesophyte at the greater trochanter. Remote deformity medial wall left acetabulum. No acute fracture or joint dislocation. Mild osteopenia. Status post posterior lumbar fusion. Soft tissues: Unremarkable. IMPRESSION: 1. No acute osseous abnormality. 2. Chronic findings. 3. Overall, no significant change from left hip CT January 18, 2021.
--- NOTE | 2024-04-11 19:45 | ED_ITS ---
Discharge Plan Disposition Patient Disposition: Home, Self-Care Prescriptions Prescriptions: New prednisone 20 mg tablet 40 mg PO DAILY 5 Days Qty: 10 0RF No Action promethazine 25 mg tablet 25 mg PO DIRECTED cyanocobalamin (vitamin B-12) 1,000 mcg/mL solution 100 mcg IM QMONTH Patient Comments: INJECT 1ML INTRAMUSCULARLY EVERY DAY FOR 7 DAYS THEN EVERY WEEK FOR 4 WEEKS THEN MONTHLY (DME) BD Luer-Filomena Syringe 3 mL 25 gauge x 1 syringe See Rx Instructions .ROUTE .MEDSUPPLY Qty: 1 Patient Comments: USE TO inject B12 Rx Instructions: As directed Nurtec ODT 75 mg tablet,disintegrating PO Patient Comments: TAKE ONE TABLET UNDER THE TONGUE NEEDED FOR MIGRAINE DIRECTED (MAX OF 1 PER DAY) cholecalciferol (vitamin D3) 400 unit capsule 400 unit PO DAILY ascorbic acid (vitamin C) 500 mg tablet 500 mg PO DAILY doxycycline hyclate 100 mg capsule 100 mg PO BID Qty: 20 1RF furosemide 40 mg tablet 40 mg PO DAILY PRN (Reason: edema) Qty: 30 2RF famotidine 20 mg tablet 20 mg PO HS Qty: 90 1RF cyanocobalamin (vitamin B-12) 1,000 mcg capsule 1,000 mcg PO QMONTH Qty: 1 0RF Qulipta 60 mg tablet 60 mg PO DAILY Qty: 30 2RF spironolactone 25 mg tablet 25 mg PO DAILY PRN (Reason: GERD) Qty: 15 2RF carvedilol 3.125 mg tablet 3.125 mg PO BID Qty: 180 1RF lorazepam 1 mg tablet 1 mg PO Q6H PRN (Reason: anxiety) Qty: 120 1RF levofloxacin 750 mg tablet 750 mg PO DAILY Qty: 14 1RF duloxetine 60 mg capsule,delayed release(DR/EC) See Rx Instructions .ROUTE .COMPLEX Qty: 60 5RF Dose Instruction: TAKE ONE CAPSULE BY MOUTH TWICE DAILY Rx Instructions: TAKE ONE CAPSULE BY MOUTH TWICE DAILY lamotrigine 200 mg tablet See Rx Instructions .ROUTE .COMPLEX Qty: 60 5RF Dose Instruction: TAKE ONE TABLET BY MOUTH TWICE DAILY Rx Instructions: TAKE ONE TABLET BY MOUTH TWICE DAILY zolpidem 10 mg tablet 10 mg PO HS PRN (Reason: Sleep) Qty: 30 1RF lamotrigine 200 MG tablet 200 mg PO BID Patient Comments: TAKE ONE TABLET BY MOUTH TWICE DAILY tizanidine 4 mg tablet 4 mg PO BID PRN (Reason: muscle spasticity) Qty: 60 0RF multivitamin Tablet 1 tab PO DAILY potassium chloride 20 mEq tablet,ER particles/crystals 1 meq PO DAILY Patient Comments: TAKE ONE TABLET BY MOUTH EVERY DAY Referrals Follow up/Referrals: Omar De La Torre MD [Primary Care Provider] - See instructions Activity Restrictions/Add. Instructions Additional Instructions/Restrictions: Call your family doctor to establish care for this visit to the emergency de partment and schedule follow-up within 48 hours to ensure improvement. If you have any worsening of your condition or any other concerning signs or symptoms, return to your primary care doctor for further evaluation. Prednisone each morning for the next 5 days with plenty of food and water. Clinical Impressions Clinical Impression: Bilateral shoulder pain, Bilateral hip pain Print Language Print Language: Polish Discharge ED Provider: Baldo Figueroa General Adult HPI General Chief complaint: PAIN Stated complaint: Severe pain in arms and shoulder Time Seen by Provider: 04/11/24 19:32 History of Present Illness HPI narrative: Please note that above description of symptoms, in this electronic medical record under categorization of recalled from ER triage doctor by RN are reflective of an initial nursing assessment, however, is not reflective of my full history and physical exam that was personally taken and clarified. Consequentially, this preceding description of symptoms, which may include the patient's categorized chief complaint in the EMR, do not reflect my personal clinical impression, and the ultimate description of history of present illness and patient stated complaints should be deferred to this section of the note. Unless stated otherwise or congruent with this section of the note, additional signs, symptoms, or incongruence should be interpreted as inaccurate with my clinical impression. Related Data Home Medications ?Medication ?Instructions ?Recorded ?Confirmed ascorbic acid (vitamin C) 500 mg 500 mg PO DAILY Supplement 07/16/17 04/06/24 tablet cholecalciferol (vitamin D3) 10 400 unit PO DAILY Supplement 07/16/17 04/06/24 mcg (400 unit) capsule lamotrigine 200 mg tablet 200 mg PO BID MOOD 09/30/19 04/06/24 multivitamin 1 tab PO DAILY suppleemnt 06/20/22 04/06/24 potassium chloride 20 mEq 1 meq PO DAILY supplemtn 06/20/22 04/06/24 tablet,extended release(part/cryst) promethazine 25 mg tablet 25 mg PO DIRECTED Nausea 06/03/23 04/06/24 cyanocobalamin (vitamin B-12) 100 mcg IM QMONTH 12/19/23 04/06/24 1,000 mcg/mL injection solution syringe with needle 3 mL 25 gauge #1 ea 12/19/23 04/06/24 x 1 (BD Luer-Filomena Syringe) rimegepant 75 mg disintegrating mg PO 04/05/24 04/06/24 tablet (Nurtec ODT) Previous Rx's ?Medication ?Instructions ?Recorded tizanidine 4 mg tablet 4 mg PO BID PRN muscle spasticity 09/05/22 #60 tabs atogepant 60 mg tablet (Qulipta) 60 mg PO DAILY #30 tabs 12/05/23 cyanocobalamin (vitamin B-12) 1,000 mcg PO QMONTH #1 cap 12/05/23 1,000 mcg capsule spironolactone 25 mg tablet 25 mg PO DAILY PRN GERD #15 tabs 12/05/23 carvedilol 3.125 mg tablet 3.125 mg PO BID BLOOD PRESSURE 12/25/23 #180 tabs lorazepam 1 mg tablet 1 mg PO Q6H PRN anxiety #120 tabs 01/22/24 doxycycline hyclate 100 mg capsule 100 mg PO BID #20 caps 03/08/24 levofloxacin 750 mg tablet 750 mg PO DAILY #14 tabs 03/15/24 duloxetine 60 mg capsule,delayed See Rx Instructions .Route 03/18/24 release .COMPLEX #60 caps famotidine 20 mg tablet 20 mg PO HS #90 tabs 03/18/24 furosemide 40 mg tablet 40 mg PO DAILY PRN edema #30 tabs 03/18/24 lamotrigine 200 mg tablet See Rx Instructions .Route 03/18/24 .COMPLEX #60 tabs zolpidem 10 mg tablet 10 mg PO HS PRN Sleep #30 tabs 03/25/24 prednisone 20 mg tablet 40 mg (2 x 20 mg) PO DAILY 5 days 04/11/24 #10 tabs Allergies Allergy/AdvReac Type Severity Reaction Status Date / Time cephalexin [From Keflex] Allergy Severe SERUM Verified 04/06/24 08:37 SICKNESS ; JOINTS LOCKED morphine Allergy Intermediate I-HIVES Verified 04/06/24 08:37 Penicillins Allergy Intermediate I-HIVES Verified 04/06/24 08:37 adhesive tape AdvReac Mild Unknown Verified 04/06/24 08:37 allergy reaction [facility] Disclaimer: The information contained in this section may have been updated after the patient was seen, as this information can be updated by other users. Medical History Frequent falls Dysphagia, unspecified Iron deficiency anemia BMI 33.0-33.9,adult Urge incontinence Primary generalized (osteo)arthritis Constipation, unspecified Irritable bowel syndrome with diarrhea Gastro-esophageal reflux disease without esophagitis Venous insufficiency (chronic) (peripheral) Anxiety Migraine Urinary incontinence Diabetes mellitus, type 2 Hyperlipidemia Normal colonoscopy Hx of fracture of wrist x4 right Derangement of sacroiliac joint Fracture acetabulum-closed Acute postoperative anemia due to expected blood loss Diabetes Degenerative joint disease of left hip HHD (hypertensive heart disease) CAD (coronary artery disease) HTN (hypertension) Diastolic dysfunction Right knee pain Right shoulder injury Post laminectomy syndrome DDD (degenerative disc disease), lumbar Surgical History History of cholecystectomy History of hysterectomy History of knee replacement History of surgery on left wrist History of left hip replacement x2 Family History Other Family history of diabetes mellitus type II Family hx-stroke Social History Smoking Status: Never smoker second hand exposure: No alcohol intake: never counseling provided: none substance use type: denies use current occupational status: unemployed Travel in the last 8 weeks: None household members: spouse and family housing: house current occupation: [employer] current occupational exposures/hazards: No caffeine: Yes do you feel safe at home: Yes victim of physical abuse: No victim of emotional abuse: No victim of sexual abuse: No would you like helpful sources: No ROS Obtained: Yes All systems reviewed & no additional complaints except as documented Physical Exam General General appearance: alert Head Head exam: atraumatic and normocephalic Eye Eye exam: Present normal appearance, PERRL and EOMI Neck Neck exam: Present normal inspection, full ROM and trachea midline Respiratory Respiratory exam: Absent respiratory distress, wheezes, stridor, accessory muscle use or prolonged expiratory phase Cardiovascular Cardiovascular exam: Present regular rate, normal rhythm and other (Pulses equal symmetric in upper and lower extremities) Abdominal Exam Abdominal exam: Present soft; Absent distention, tenderness or pulsatile mass Extremities Exam Extremities exam: Present edema and other (Per MDM) Neurological Exam Neurological exam: Present alert, oriented X3 and CN II-XII intact; Absent motor sensory deficit Skin Skin exam: Present warm and dry; Absent diaphoresis or erythema Medical Decision Making Medical Records Medical records reviewed: Yes I reviewed the patient's medical records. Screening: Per USPSTF and CDC recommendations, given the prevalence of disease in our region, it is our hospital?s policy to screen for HIV and viral Hepatitis for all patients aged 18 and over and those with ongoing risk factors. Daniel Inquiry Pt receiving controlled substance: No Daniel was queried for this patient: No Vital Signs: 04/11/24 19:50 Temperature 98.4 F Temperature Source Oral Pulse Rate [Right] 91 H Respiratory Rate 18 Blood Pressure [Right Arm] 126/85 Blood Pressure Mean [Right Arm] 98 02 Sat by Pulse Oximetry 95 Orders (Tests/Meds): ED MEDICATIONS Discontinued Medications Generic Name Dose Route Start Last Admin Trade Name Freq PRN Reason Stop Dose Admin Acetaminophen 1,000 mg 04/11/24 19:42 04/11/24 19:56 Acetaminophen 1,000mg/100ml Vial IV 04/11/24 19:43 1,000 mg ONCE ONE Administration Dexamethasone Sodium Phosphate 10 mg 04/11/24 19:42 04/11/24 19:56 Dexamethasone 4mg/Ml 1ml Vial IV 04/11/24 19:43 10 mg ONCE ONE Administration Haloperidol Lactate 2 mg 04/11/24 19:49 04/11/24 19:57 Haloperidol Lactate 5 Mg/Ml Vial IV 04/11/24 19:50 2 mg ONCE ONE Administration Ketorolac Tromethamine 15 mg 04/11/24 19:42 04/11/24 19:57 Ketorolac 30mg/Ml Vial IV 04/11/24 19:43 15 mg ONCE ONE Administration ORDERS Category Date Time Status Hip XR left minimum 2 views [XR hip LT 2-3V w/pelvis] Exams 04/11/24 19:42 Taken Stat Hip XR right minimum 2 views [XR hip RT 2-3V w/pelvis] Exams 04/11/24 19:42 Taken Stat Shoulder XR left minimum 2 views [XR shoulder LT min 2V Exams 04/11/24 19:42 Taken ] Stat Shoulder XR right miminum 2 views [XR shoulder RT min Exams 04/11/24 19:42 Taken 2V] Stat Medical Decision Narrative: This is a 64-year-old female history of diffuse chronic pain including chronic bilateral shoulder pain, chronic bilateral hip pain (status post left hip arthroplasty), chronic back pain following with pain management with pain pump in place, chronic bilateral wrist pain, likely fibromyalgia, hypertension, hyperlipidemia, type 2 diabetes, CAD, presenting with atraumatic pain. Patient states that this pain has been present for the last few months. Getting worse over the past couple of days. No changes in medication. She has tried Tylenol with minimal relief as well as IcyHot, ice, heat. Pain is moderate to severe, made better with laying still. Able to bear weight without issue, able to move shoulders without issue other than pain. No systemic signs or symptoms. No recent injuries. History was obtained via conversation with patient. On arrival, patient hemodynamically stable, alert, oriented x4, appropriate, GCS 15, moving all extremities spontaneously, pupils equal and reactive to light. Full physical exam performed and significant for chronically ill 64-year-old female who is tearful. In no acute distress. Able to range shoulders and hips without issue, transferred to bed from wheelchair without issue. She does have tenderness GH joint space bilaterally, as well as bicipital groove bilaterally. Range of motion subjectively painful to patient, passive range of motion without much pain. No red, hot, swollen joints. Bilateral hips grossly appear within normal limits. Neurovascular intact upper and lower extremities. Differential includes acute on chronic pain, pain medicine seeking behavior, illness anxiety disorder, fibromyalgia, arthritis, among others. Patient placed on continuous cardiac monitoring and continuous pulse ox with initial blood pressure 126/85, heart rate 91, saturation 95% on room air. Patient was given Decadron, prednisone, acetaminophen, Toradol, haloperidol for symptomatic management. Workup independently interpreted and significant for no acute bony abnormality on x-rays of the shoulders or hips. On independent interpretation of hematologic workup in the recent past, A1c nondiabetic, patient does have elevated inflammatory markers. See radiology read for full review of final results. On reevaluation, patient sleeping comfortably in bed, states that her pain is modestly improved and feels comfortable going home. Given patient presentation, workup, history, this most likely represents acute on chronic joint pain. I feel this is incredibly unlikely to be septic joints because patient ambulated on her hips, which were causing her trouble, passive range of motion of the shoulders do not elicit significant pain either. In the absence of systemic symptoms and physical exam findings concerning for septic joint, deemed appropriate for outpatient management. Recommendations for follow-up with family doctor as well as rheumatology were offered, patient voiced understanding. Because patient at baseline without signs or symptoms of clinical decompensation, deemed appropriate for discharge. Results were relayed to patient who voiced understanding and were agreeable to outpatient management and follow up. I discussed my clinical impression with patient and answered all questions. At this time, the evidence for any other entities in the differential is insufficient to warrant any further testing or ED observation. This was explained as well. Advisory was given that persistent or worsening symptoms require further evaluation. I confirmed the understanding of this discussion. Unmanned Equipment Operator disclaimer Much of this encounter note is an electronic jet engine mechanic spoken language to printed text. Electronic jet engine mechanic of the spoken language may permit errors. Although I have reviewed the note, some errors may still exist. Critical Care Critical Care Time Critical Care Time: No
[2024-04-11 19:50] VITALS: BP 126/85; PULSE 91; RESP 18; TEMP 36.9; O2SAT 95; BMI 31.3
[2024-04-11] MEDS: ACETAMINOPHEN 1,000MG/100ML VIAL 1000 MG IV (19:56)
[2024-04-11] MEDS: DEXAMETHASONE 4MG/ML 1ML VIAL 10 MG IV (19:56)
[2024-04-11] MEDS: HALOPERIDOL LACTATE 5 MG/ML VIAL 2 MG IV (19:57)
[2024-04-11] MEDS: KETOROLAC 30MG/ML VIAL 15 MG IV (19:57)
[2024-04-11 20:50] VITALS: BP 126/85; PULSE 77; RESP 16; TEMP 36.6; O2SAT 96
== END 2024-04-11 20:54 | disposition home or self-care (01) ==
PROVIDERS: Emergency Provider Emergency Medicine; PCP Internal Medicine
DX: M25.511 Pain in right shoulder (principal); M25.512 Pain in left shoulder; M25.551 Pain in right hip; M25.552 Pain in left hip
CPT/HCPCS: 73030; 73502; 96374; 96375; 99284; J0131; J1100; J1630; J1885

== ENCOUNTER 2024-04-15 13:32 | Outpatient (CLI) | payer BC, SELFPAY ==
[2024-04-17 10:12] LABS: RA Latex Turbid. <10.0 IU/mL (<14.0)
[2024-04-19 15:10] LABS: Antinuclear Antibodies, IFA Negative (.)
== END 2024-04-15 23:59 | disposition home or self-care (01) ==
LOC: LAB 13:33
PROVIDERS: PCP Internal Medicine; Visit Provider Podiatrist
DX: E11.42 Type 2 diabetes mellitus with diabetic polyneuropathy (principal); M19.071 Primary osteoarthritis, right ankle and foot; M19.072 Primary osteoarthritis, left ankle and foot
CPT/HCPCS: 83036; 86038; 86431

== ENCOUNTER 2024-04-22 08:26 | Outpatient (CLI) | payer BC, SELFPAY ==
--- NOTE | 2024-04-22 08:27 | MM_ITS ---
PROCEDURE INFORMATION: Exam: MG Bilateral Screening 3D Mammography Exam date and time: 04/22/2024 8:27 AM Age: 64 years old Clinical indication: Screening examination TECHNIQUE: Imaging protocol: Bilateral Screening tomosynthesis and 2D mammography including computer-aided detection (CAD) when performed. COMPARISON: 1. MG MM DIG SCREENING MAMM BI W/CAD 02/09/2020 9:04 AM 2. MG DMSB DIG MAMM-SCREEN ARIEL 02/23/2016 3:17 PM FINDINGS: MAMMOGRAPHY: Breast composition: There are scattered areas of fibroglandular density. Mass: None. Architectural distortion: None. Calcifications: No suspicious calcifications. Asymmetric density: None. Skin thickening: None. Axillary adenopathy: None. IMPRESSION: No mammographic evidence of malignancy. Annual screening is recommended unless otherwise clinically indicated. ASSESSMENT: BI-RADS Category 1: Negative.
== END 2024-04-22 23:59 | disposition home or self-care (01) ==
LOC: RAD 08:27
PROVIDERS: PCP Internal Medicine; Visit Provider Internal Medicine
DX: Z12.31 Encounter for screening mammogram for malignant neoplasm of breast (principal)
CPT/HCPCS: 77063; 77067

== ENCOUNTER 2024-04-27 08:48 | Day surgery (SDC) | payer BC, SELFPAY ==
[2024-04-27 08:57] VITALS: BP 143/74; PULSE 70; RESP 16; O2SAT 93; BMI 31.3
[2024-04-27 09:23] VITALS: BP 149/81; PULSE 69; RESP 18; O2SAT 97
[2024-04-27 09:24] VITALS: BP 149/81; PULSE 69; RESP 18; O2SAT 97
[2024-04-27 09:38] VITALS: BP 150/86; PULSE 75; RESP 16; O2SAT 96
--- NOTE | 2024-04-27 10:00 | EXP.PAIN.PRO ---
Procedure Date: 04/27/24 Time: 09:30 Anesthesiologist:: Nima Torrez CRNA Complications:: None Pre-procedure Diagnosis:: Degenerative disc lumbar spine multilevels. Lumbar radiculopathy. Degenerative disc cervical spine multilevels. Cervical radiculopathy. Cervical spondylosis. Cervical postlaminectomy syndrome. Lumbar postlaminectomy syndrome. Post-procedure Diagnosis:: Same Indications for Procedure:: Patient is a very pleasant 64-year-old female who comes her clinic today for intrathecal pain pump interrogation and refill and reprogram. She is currently being managed with hydromorphone 20 mg/mL at a rate of 5.853 mg/day. Also, bupivacaine 20 mg/mL at a rate of 5.853 mg/day. Patient reporting severe pain low back bilateral hips and legs including her feet. She rates her pain 8/10. Patient also reporting cervical neck pain. Bilateral shoulder pain. She is requesting increase in the intrathecal pain pump rate. I think this is reasonable. I will increase her to 20%. She said it has been at least 1 year since her last increase in intrathecal pain pump rate. Patient is awake alert [place] x 3. In no acute distress. Flexion-extension lumbar and cervical spine very guarded secondary to pain. Deep tendon reflexes upper lower extremities normal. Motor strength upper extremities normal. Lower extremities not examined due to patient arrival in wheelchair. Procedure Details:: Details of the procedure explained to the patient. The patient taken procedure room placed in the sitting position. They over the pumps cleansed using chlorhexidine as a cleansing solution. The pump was interrogated. The pump was accessed with ease using a 22-gauge inch and half needle. 3.5 mL of solution was withdrawn discarded appropriately. The pump was then filled with 20 cc of solution containing hydromorphone 20 mg/mL and bupivacaine 20 mg/mL. The pump rate will be increased by 20%. The new rate will be hydromorphone 7.0 to 8 mg/day. Bupivacaine 7.028 mg/day. Patient tolerated procedure without difficulty. There are no complications. Plan and Disposition:: Patient was discharged without incident.
== END 2024-04-27 09:38 | disposition home or self-care (01) ==
LOC: SC.PAINP 08:48
PROVIDERS: PCP Internal Medicine; Visit Provider Nurse Anesthetist, Certified Registered
DX: M51.16 Intervertebral disc disorders with radiculopathy, lumbar region (principal); M50.10 Cervical disc disorder with radiculopathy, unspecified cervical region; M47.22 Other spondylosis with radiculopathy, cervical region; M96.1 Postlaminectomy syndrome, not elsewhere classified
CPT/HCPCS: 62370

== ENCOUNTER 2024-05-25 14:35 | Outpatient (CLI) | payer BC, SELFPAY ==
--- NOTE | 2024-05-25 15:16 | XR_ITS ---
FINAL REPORT CLINICAL HISTORY: Right foot pain COMPARISON: 02/06/2024 FINDINGS: RIGHT FOOT 3 views of the right foot were obtained. There is no acute fracture or dislocation. There is mild and moderate degenerative change, greatest in the midfoot. There is chronic irregularity and fusion of the 2nd and 3rd PIP joints. Flattening is noted at the head of the 2nd metatarsal which may be degenerative versus chronic osteonecrosis. Soft tissues are unremarkable. IMPRESSION: Degenerative/chronic changes without acute bony abnormality. Reviewed, Interpreted and Dictated by Horacio Montejo III, MD Transcribed by Sana Shahid Authenticated and [facility]
[2024-05-25 15:20] LABS: Basophils % 0.4 % (0.1-2.0); Eosinophils # 0.2 K/mm3 (0.0-0.4); Eosinophils % 3.5 % (0.1-12.0); Hematocrit 35.1 % (37.0-47.0); Hemoglobin 11.5 g/dL (12.2-16.2); Lymphocytes # 1.1 K/mm3 (0.7-4.5); Lymphocytes % 24.5 % (10-50); Mean Corpuscular HGB Conc 32.7 g/dL (31.8-35.4); Mean Corpuscular Hemoglobin 29.6 pg (27.0-31.2); Mean Corpuscular Volume 90.5 fl (81-99); Monocytes # 0.3 K/mm3 (0.1-1.0); Neutrophils % 64.6 % (37.0-80.0); Platelet Count 285 K/mm3 (142-424); Red Blood Count 3.88 M/mm3 (4.20-5.40); Red Cell Distribution Width 14.1 % (11.5-17.5); White Blood Count 4.6 K/mm3 (4.8-10.8)
[2024-05-25 15:46] LABS: Erythrocyte Sedimentation Rate 42 mm/hr (0-30)
[2024-05-25 16:07] LABS: Chloride 101 mmol/L (98-107)
[2024-05-25 16:08] LABS: Potassium 3.8 mmoL/L (3.5-5.1); Sodium 136 mmol/L (136-145)
[2024-05-25 16:10] LABS: Blood Urea Nitrogen 9 mg/dl (7-17); Estimated Glomerular Filt Rate 84 ml/min (>60); GFR (African American) 102 ML/MIN (>60)
[2024-05-25 16:11] LABS: Alanine Aminotransferase 16 U/L (12-78); Albumin/Globulin Ratio 1.6 (1.1-1.8); Alkaline Phosphatase 77 U/L (38-126); Anion Gap 12.8 mEq/L (5-15); Aspartate Amino Transferase 31 U/L (14-36); Bilirubin,Total 0.5 mg/dl (0.2-1.3); Calcium 9.1 mg/dl (8.4-10.2); Carbon Dioxide 26 mmol/L (22.0-30.0); Globulin 2.5 g/dL (1.3-3.2); Glucose 106 mg/dl (74-100); Total Protein,Serum 6.5 g/dl (6.3-8.2)
[2024-05-25 17:08] LABS: C-Reactive Protein 2.8 mg/L (0-4)
== END 2024-05-25 23:59 | disposition home or self-care (01) ==
LOC: LAB 14:37
PROVIDERS: PCP Internal Medicine; Visit Provider Podiatrist
DX: E11.621 Type 2 diabetes mellitus with foot ulcer (principal); L03.115 Cellulitis of right lower limb; M79.671 Pain in right foot; L97.412 Non-pressure chronic ulcer of right heel and midfoot with fat layer exposed
CPT/HCPCS: 36415; 73630; 80053; 85025; 85651; 86140; 87070; 87077; 87186; 87205

== ENCOUNTER 2024-05-25 21:22 | Outpatient (CLI) | payer BC, SELFPAY | END 2024-05-25 23:59 | disposition home or self-care (01) | LOC: LAB.DROPOF 21:23 | PROVIDERS: PCP Podiatrist; Visit Provider Podiatrist | DX: Z02.9 Encounter for administrative examinations, unspecified (principal) ==

== ENCOUNTER 2024-06-03 08:19 | Outpatient (CLI) | payer BC, SELFPAY ==
--- NOTE | 2024-06-03 08:24 | XR_ITS ---
FINAL REPORT CLINICAL HISTORY: foot pain COMPARISON: 03/08/2024 FINDINGS: LEFT FOOT Three views of the left foot demonstrate no acute fracture or dislocation. The bones are osteopenic. Hammertoe deformity is noted of the 3rd digit. There is a small plantar spur. The soft tissues are unremarkable. IMPRESSION: No acute bony abnormality. Reviewed, Interpreted and Dictated by Houston Elizabeth MD Transcribed by Sana Shahid Authenticated and [facility]
--- NOTE | 2024-06-03 08:24 | XR_ITS ---
FINAL REPORT CLINICAL HISTORY: right foot injury COMPARISON: 05/25/2024 FINDINGS: RIGHT FOOT 3 views of the right foot were obtained. There is no acute fracture or dislocation. There is ankylosis of the 2nd and 3rd PIP joints. Moderate hypertrophic changes are noted over the dorsal aspect of the talonavicular joint. There is a moderate plantar spur. Soft tissue edema is noted over the dorsum of the foot. IMPRESSION: No acute bony abnormality. Stable degenerative changes. Reviewed, Interpreted and Dictated by Houston Elizabeth MD Transcribed by Sana Shahid Authenticated and [facility]
== END 2024-06-03 23:59 | disposition home or self-care (01) ==
LOC: RAD 08:21
PROVIDERS: PCP Internal Medicine; Visit Provider Podiatrist
DX: M79.671 Pain in right foot (principal); S99.921A Unspecified injury of right foot, initial encounter
CPT/HCPCS: 73630

== ENCOUNTER 2024-06-08 08:51 | Day surgery (SDC) | payer BC, SELFPAY ==
[2024-06-08 09:14] VITALS: BP 151/68; PULSE 76; RESP 16; TEMP 36.4; O2SAT 98; BMI 31.3
[2024-06-08 09:25] VITALS: BP 157/86; PULSE 72; RESP 18; O2SAT 97
[2024-06-08 09:26] VITALS: BP 157/86; PULSE 72; RESP 18; O2SAT 97
[2024-06-08 09:38] VITALS: BP 139/83; PULSE 68; RESP 16; O2SAT 92
--- NOTE | 2024-06-08 09:59 | EXP.PAIN.PRO ---
Procedure Date: 06/08/24 Time: 08:40 Anesthesiologist:: Nima Torrez CRNA Complications:: None Pre-procedure Diagnosis:: Degenerative disc lumbar spine multilevels. Lumbar radiculopathy. Lumbar postlaminectomy syndrome. Lumbar spondylosis. Multilevel lumbar facet arthropathy. Chronic pain syndrome. Post-procedure Diagnosis:: Same. Indications for Procedure:: Patient is a pleasant 64-year-old female who comes our clinic today for intrathecal pain pump interrogation and refill. Patient currently being managed with hydromorphone 20 mg/mL at a rate of 7.0 to 8 mg/day. Also bupivacaine 20 mg/mL at a rate of 7 0 to 8 mg/day. Patient is doing very well with her current settings. She is not reporting side effects or complications. She is not requesting changes. Procedure Details:: Details of the procedure explained to the patient. The patient taken procedure and patient seated position. The area of the pump was cleansed using chlorhexidine as a cleansing solution. The pump was interrogated. The pump was accessed with ease using a 22-gauge inch and half needle. 4 mL of solution was withdrawn discarded appropriately. The pump was then filled with 20 cc of solution containing hydromorphone 20 mg/mL and bupivacaine 20 mg/mL. Patient tolerated procedure without difficulty. There are no complications. Plan and Disposition:: Patient was discharged without incident.
== END 2024-06-08 09:38 | disposition home or self-care (01) ==
LOC: SC.PAINP 08:52
PROVIDERS: PCP Internal Medicine; Visit Provider Nurse Anesthetist, Certified Registered
DX: M51.16 Intervertebral disc disorders with radiculopathy, lumbar region (principal); M96.1 Postlaminectomy syndrome, not elsewhere classified; M47.26 Other spondylosis with radiculopathy, lumbar region; G89.4 Chronic pain syndrome
CPT/HCPCS: 95991

== ENCOUNTER 2024-06-28 09:25 | Outpatient (CLI) | payer BC, SELFPAY ==
[2024-06-29 10:54] LABS: Basophils % 0.6 % (0.1-2.0); Eosinophils # 0.1 K/mm3 (0.0-0.4); Eosinophils % 2.7 % (0.1-12.0); Hematocrit 37.7 % (37.0-47.0); Hemoglobin 12.1 g/dL (12.2-16.2); Lymphocytes # 1.4 K/mm3 (0.7-4.5); Lymphocytes % 29.8 % (10-50); Mean Corpuscular HGB Conc 32.2 g/dL (31.8-35.4); Mean Corpuscular Hemoglobin 29.3 pg (27.0-31.2); Mean Platelet Volume 7.3 fl (7.4-10.4); Monocytes # 0.4 K/mm3 (0.1-1.0); Monocytes % 7.8 % (1.7-9.3); Neutrophils # 2.7 K/mm3 (1.8-7.8); Neutrophils % 59.1 % (37.0-80.0); Platelet Count 309 K/mm3 (142-424); Red Blood Count 4.14 M/mm3 (4.20-5.40); White Blood Count 4.6 K/mm3 (4.8-10.8)
[2024-06-29 11:35] LABS: Alanine Aminotransferase 19 U/L (12-78); Albumin Level 3.8 g/dl (3.5-5.0); Albumin/Globulin Ratio 1.5 (1.1-1.8); Alkaline Phosphatase 96 U/L (38-126); Anion Gap 8.8 mEq/L (5-15); Aspartate Amino Transferase 34 U/L (14-36); Bilirubin,Total 0.4 mg/dl (0.2-1.3); Blood Urea Nitrogen 15 mg/dl (7-17); Calcium 9.2 mg/dl (8.4-10.2); Carbon Dioxide 33 mmol/L (22.0-30.0); Chloride 101 mmol/L (98-107); Chol/HDL Ratio 1.9 (1-3.5); Cholesterol 161 mg/dl (140-200); Estimated Glomerular Filt Rate 84 ml/min (>60); GFR (African American) 102 ML/MIN (>60); Globulin 2.5 g/dL (1.3-3.2); Glucose 97 mg/dl (74-100); HDL Cholesterol 86 mg/dl (40-60); Potassium 3.8 mmoL/L (3.5-5.1); Sodium 139 mmol/L (136-145); Total Protein,Serum 6.3 g/dl (6.3-8.2); Triglycerides 70 mg/dl (30-150); VLDL Cholesterol 14 mg/dL (0-40)
[2024-06-29 11:45] LABS: Direct LDL Cholesterol 65.65 mg/dL (100-129)
[2024-06-29 14:51] LABS: Creatinine,Urine Random 103 mg/dL (Not Estab.)
[2024-06-29 14:56] LABS: Microalbumin/Creatinine Ratio 40.8
[2024-06-29 15:13] LABS: Hemoglobin A1C 5.7 % (4.0-6.0)
== END 2024-06-28 23:59 | disposition home or self-care (01) ==
LOC: LAB.DROPOF 06-29 13:13
PROVIDERS: PCP Internal Medicine; Visit Provider Internal Medicine
DX: E78.5 Hyperlipidemia, unspecified (principal); E11.42 Type 2 diabetes mellitus with diabetic polyneuropathy; I10 Essential (primary) hypertension; I51.89 Other ill-defined heart diseases
CPT/HCPCS: 80053; 80061; 82043; 82570; 83036; 85025

== ENCOUNTER 2024-07-16 09:45 | Day surgery (SDC) | payer BC, SELFPAY ==
[2024-07-16 09:56] VITALS: BP 156/75; PULSE 88; RESP 16; TEMP 36.5; O2SAT 100; BMI 31.3
--- NOTE | 2024-07-16 10:02 | P.PCN_ITS ---
Procedure Date: 07/16/24 Time: 10:23 Anesthesiologist:: Marisa Villagomez APRN Complications:: None Pre-procedure Diagnosis:: Degenerative disc disease of lumbar spine with lumbar radiculopathy symptoms, generalized joint pain Post-procedure Diagnosis:: Same Indications for Procedure:: Patient is a pleasant 64-year-old female who presents today for intrathecal refill and reprogram. Today she rates her pain a 7 Out of 10. She denies any new trauma or changes from her last appointment. Nancy joaquin is currently managed with Dilaudid 20 mg/mL with a daily dose of 7.02 8 mg/day and bupivacaine 20 mg/mL with a daily dose of 7.028 milligrams per day. She denies any side effects from this medication. Her Daniel has been reviewed and is appropriate. Physical Exam: General: Alert and oriented x3, no acute distress, pleasant and cooperative Lungs: Respirations even and unlabored, symmetrical chest expansion Eyes: PERRL Musculoskeletal: Flexion and extension of lumbar [spine] somewhat guarded secondary to pain, [antalgic gait noted] Neurological: Speech clear, no gross sensory deficit Procedure Details:: Informed consent was obtained and the risk and benefits of the procedure were explained to the patient. The patient had noninvasive monitoring placed including noninvasive blood pressure cuff and pulse oximeter. Patient's pump was interrogated. The area over the pump was cleansed with chlorhexidine as a cleansing solution. In sterile fashion the pump was accessed with a 22-gauge needle. Approximately 6 mls of the pump solution was removed and discarded appropriately. The pump was then refilled with 20 mL's of Dilaudid and bupivacaine 20 mg/mL. The needle was withdrawn and a bandage was placed over the puncture site. The infusion rate was reprogrammed and continued at Dilaudid and bupivacaine 7.028 mg/day. The patient tolerated well with no complication. Plan and Disposition:: Patient tolerated her intrathecal refill and reprogram with no complications and was discharged neurologically intact. Patient does have chronic joint pain throughout multiple areas and a longstanding history of inflammation. I did discuss with the patient regarding sending her for referral to rheumatology. Patient states that she would like us to proceed forward with that option. I will also send in a new order of the compounded cream. Patient will return on or before her next refill date. We will see the patient back in the clinic at the next intrathecal refill. Patient has been instructed to contact the clinic with any concerns before the next appointment. Dr. Ortiz has reviewed this note and agrees with this plan of care. This note was dictated using voice recognition software and make contain errors or omissions. -- It Is medically necessary for this patient to continue to have their intrathecal pump refilled at regular intervals. This patient had an intrathecal pain pump implanted after meeting criteria of chronic intractable pain for greater than 3 months and failing conservative treatments. Patient has committed and been compliant to the treatment plan and all planned follow up care. Since implantation of the intrathecal pain pump, the patient has had decreased pain and been more functional. Oral medications have been reduced including intake of oral opioids. Patient continues to do well with intrathecal therapy with decrease in pain symptoms and increase in functional status. Stopping intrathecal medications can lead to life threatening withdrawal, seizures, cardiac arrest, severe pain, and possible . Pumps that are not refilled at regular intervals can be damages and cause and need for replacement. We continually titrate dose and concentration to optimize pain relief and function. We are limited in concentration for certain drugs to safely deliver medications through the pump and stay within the recommendations from the Polyanalges[employer] Consensus Committee Guidelines. Depending on dose and concentration these pumps may need to be refilled sooner than 3 months as we titrate. A UDS is needed to verify patient's compliance with our office pain contract. This is ordered based off specific treatments related to chronic pain with the potential to abuse certain medications.
[2024-07-16 10:09] VITALS: BP 139/79; PULSE 75; RESP 18
[2024-07-16 10:11] VITALS: BP 139/79; PULSE 75; RESP 18
[2024-07-16 10:28] VITALS: BP 130/94; PULSE 72; RESP 16; O2SAT 96
== END 2024-07-16 10:28 | disposition home or self-care (01) ==
LOC: SC.PAINP 10:05 → SC.PAIN 10:34
PROVIDERS: PCP Internal Medicine; Visit Provider Nurse Practitioner Family
DX: M51.16 Intervertebral disc disorders with radiculopathy, lumbar region (principal); M25.50 Pain in unspecified joint
CPT/HCPCS: 62370

== ENCOUNTER 2024-07-29 13:27 | Outpatient (CLI) | payer BC, SELFPAY ==
--- NOTE | 2024-07-29 13:32 | XR_ITS ---
FINAL REPORT CLINICAL HISTORY: Pre-op testing, SOB COMPARISON: None FINDINGS: No acute pulmonary density is evident. There is no evidence of effusion or other pleural disease. There is a large benign calcified lymph node in the AP window. The mediastinum has a normal appearance. The cardiac silhouette is unremarkable. IMPRESSION: Unremarkable chest exam. Reviewed, Interpreted and Dictated by Herbert Jeronimo MD Transcribed by Mikaela Schmidt Authenticated and [facility]
--- NOTE | 2024-07-29 14:00 | ECG_ITS ---
APPROVED REPORT Exam: Resting ECG HR:68 bpm ECG Measurements Heart Rate 68 AXES NH 159 P 34 QRSd 102 QRS 3 QT 396 T -1 QTc 414 Conclusion SINUS RHYTHM Left axis deviation with moderate LVH criteria Old anteroseptal changes BORDERLINE ECG UNCONFIRMED REPORT Electronically signed by : Anjel Horan MD 07/30/2024 09:18:11
[2024-07-29 14:24] LABS: Basophils % 0.2 % (0.1-2.0); Eosinophils # 0.1 K/mm3 (0.0-0.4); Eosinophils % 2.4 % (0.1-12.0); Hematocrit 35.7 % (37.0-47.0); Hemoglobin 11.4 g/dL (12.2-16.2); Lymphocytes # 1.4 K/mm3 (0.7-4.5); Lymphocytes % 33.5 % (10-50); Mean Corpuscular HGB Conc 31.9 g/dL (31.8-35.4); Mean Corpuscular Hemoglobin 29.2 pg (27.0-31.2); Mean Corpuscular Volume 91.5 fl (81-99); Mean Platelet Volume 8.8 fl (7.4-10.4); Monocytes # 0.5 K/mm3 (0.1-1.0); Monocytes % 10.8 % (1.7-9.3); Neutrophils # 2.2 K/mm3 (1.8-7.8); Neutrophils % 53.1 % (37.0-80.0); Platelet Count 332 K/mm3 (142-424); Red Cell Distribution Width 13.2 % (11.5-17.5); White Blood Count 4.2 K/mm3 (4.8-10.8)
[2024-07-29 15:07] LABS: Erythrocyte Sedimentation Rate 36 mm/hr (0-30)
[2024-07-29 15:14] LABS: Alanine Aminotransferase 20 U/L (12-78); Albumin Level 4.2 g/dl (3.5-5.0); Albumin/Globulin Ratio 1.8 (1.1-1.8); Alkaline Phosphatase 92 U/L (38-126); Anion Gap 9.2 mEq/L (5-15); Aspartate Amino Transferase 34 U/L (14-36); Bilirubin,Total 0.2 mg/dl (0.2-1.3); Blood Urea Nitrogen 14 mg/dl (7-17); Calcium 9.4 mg/dl (8.4-10.2); Carbon Dioxide 33 mmol/L (22.0-30.0); Chloride 100 mmol/L (98-107); Estimated Glomerular Filt Rate 84 ml/min (>60); GFR (African American) 102 ML/MIN (>60); Globulin 2.4 g/dL (1.3-3.2); Glucose 85 mg/dl (74-100); Potassium 4.2 mmoL/L (3.5-5.1); Sodium 138 mmol/L (136-145); Total Protein,Serum 6.6 g/dl (6.3-8.2)
[2024-07-29 15:19] LABS: C-Reactive Protein 1.6 mg/L (0-4)
== END 2024-07-29 23:59 | disposition home or self-care (01) ==
LOC: LAB 13:29
PROVIDERS: PCP Internal Medicine; Visit Provider Podiatrist
DX: Z01.818 Encounter for other preprocedural examination (principal)
CPT/HCPCS: 36415; 71046; 80053; 85025; 85651; 86140; 93005

== ENCOUNTER 2024-08-11 07:30 | Day surgery (SDC) | payer BC, SELFPAY ==
[2024-08-10 12:53] VITALS: BMI 35.0
[2024-08-11] VITALS (12 sets, daily range): BP systolic 124–152; BP diastolic 60–99; PULSE 69–78; RESP 18; TEMP 36.1–36.8; O2SAT 93–100
[2024-08-11] MEDS: LACTATED RINGERS 1000ML 1,000 ML 25 ML IV (08:15)
[2024-08-11] MEDS: DAPTOmycin 1,000 MG in 0.9 % SODIUM CHLORIDE 50 ML 100 MG IV (09:15)
[2024-08-11] MEDS: CLINDAMYCIN PHOSPHATE/D5W 900 MG/50 ML PIGGYBACK 100 MG IV (09:20)
--- NOTE | 2024-08-11 09:22 | P.PNANES_ITS ---
[facility] Disclaimer: The information contained in this section may have been updated after the patient was seen, as this information can be updated by other users. Medical History Frequent falls Dysphagia, unspecified Iron deficiency anemia BMI 33.0-33.9,adult Urge incontinence Primary generalized (osteo)arthritis Constipation, unspecified Irritable bowel syndrome with diarrhea Gastro-esophageal reflux disease without esophagitis Venous insufficiency (chronic) (peripheral) Anxiety Migraine Urinary incontinence Diabetes mellitus, type 2 Hyperlipidemia Normal colonoscopy Hx of fracture of wrist x4 right Derangement of sacroiliac joint Fracture acetabulum-closed Acute postoperative anemia due to expected blood loss Diabetes Degenerative joint disease of left hip HHD (hypertensive heart disease) CAD (coronary artery disease) HTN (hypertension) Diastolic dysfunction Right knee pain Right shoulder injury Post laminectomy syndrome DDD (degenerative disc disease), lumbar Surgical History History of cholecystectomy History of hysterectomy History of knee replacement History of surgery on left wrist History of left hip replacement x2 Family History Other Family history of diabetes mellitus type II Family hx-stroke Social History (Updated 08/11/24 @ 08:01 by Rosemary Rosales RN) Smoking Status: Never smoker second hand exposure: No alcohol intake: never counseling provided: none substance use type: denies use current occupational status: unemployed Travel in the last 8 weeks: None household members: spouse and family housing: house current occupation: [employer] current occupational exposures/hazards: No caffeine: Yes do you feel safe at home: Yes victim of physical abuse: No victim of emotional abuse: No victim of sexual abuse: No would you like helpful sources: No Have you lived/traveled outside [place] in past 30 days?: No Contact w/someone who lives/traveled outside US past 30 days?: No Exposure to someone with infectious disease in past 14 days?: No Do you have a fever (greater than 100.4 F or 38 C)?: No Have you tested positive for COVID-19: No Exposed to someone with COVID-19 in past 14 days?: No Do you have a sore throat?: No Do you have a cough?: No Do you have any weakness?: No Are you experiencing any nausea/vomitting?: No Do you have any diarrhea?: No Are you experiencing any unusual bleeding?: No Do you have any muscle aches/pain?: No Do you have any abdominal pain?: No Are you experiencing loss of taste or smell?: No [facility] Anesthesia Checklist Patient Identification Patient Identification: Arm Band Structural Data Admitted From: Home Planned Operative Procedure/s: Excision of Soft Tissue Mass Right Foot Consent for Planned Operative Procedure(s) Verified: Yes Verified Documents: Surgical Consent and History and Physical NPO Status Verified Time NPO: 00:00 Additional verifications Anesthesia Reactions: No Hx Blood Transfusions: No Blood Transfusion Reaction: No Airway Assessment Mallampati Score:: Class II C-Spine Mobility Assessed: Yes TMJ Mobility Assessed: Yes Dentition: Dentures-good fit (Removed) Neurological Assessment Level of Consciousness: Awake, Alert and Appropriate Anesthesia Plan Anesthesia Risk discussed: Yes Anesthesia Plan: Verified ASA Class: III Anesthesia Type: General w/block (Popliteal/Adductor Canal. Risks/benefits explained. Pt verbalized understanding)
[2024-08-11] MEDS: GENTAMICIN 80 MG/2 ML VIAL (10:45)
[2024-08-11] MEDS: BUPIVACAINE 0.5% 10ML VIAL 50 MG (10:45)
--- NOTE | 2024-08-11 10:54 | P.OP_ITS ---
Date of procedure: 08/11/24 Pre-op Diagnosis:: Right foot soft tissue mass/tumor Right foot dorsal exostosis Right foot synovitis Neuritis, nerve impingement Post-op Diagnosis:: Same + lipoma Procedure performed:: Right foot soft tissue mass/tumor removal (subfascial >1.5cm) partial excision dorsal tarsal/metatarsal, cuneiform, navicular/talus tarsometatarsal/intertarsal synovectomy nerve decompression Surgeon:: Kaela Lo DPM INTERNATIONAL LOGISTICS MANAGER:: Aline Hercules Anesthesia: GETA Estimated blood loss (mL): 20 Clinical Note:: Patient is a 64-year-old diet-controlled diabetic who presents with continued pain and soft tissue mass to the right foot. She has a history of arthritis, limb length deformity, varicose veins and chronic venous insufficiency. X-ray and MRI shows heterogeneous soft tissue mass over the dorsum of the foot with arthritic changes. Patient has failed conservative care including: Modification of shoe gear, modification of activity, taping, strapping, inserts, ice, elevation, NSAIDs, oral/steroid injections, bracing and PT. After a long disc ussion with the patient in regards to the conservative versus surgical treatment for the arthritic deformity, the patient has elected to proceed with surgery because they have failed conservative treatment and continue to have pain and worsening symptoms affecting daily activities. Discussed surgery including: right foot reconstruction (multiple joint fusions) vs soft tissue mass removal with exostectomy. Given her co-morbidities, balance issues I would recommend the less invasive option with doing just a soft tissue mass removal and exostectomy so she can comfortably put her shoe. I would not recommend a prolonged reconstruction where she would need to be off of her foot for 2-3 months with her balance issues and concern she can not be NWB. Discussed patient's primary postop concern would be edema, wound dehiscence and infection risk. Strongly recommend nonweightbearing postoperatively for 2-3 weeks until the skin heals. Patient will be able to PWB in fracture boot to the heel for transfers with her walker. Discussed if needed in future, could re-visit reconstruction option depending on how she heals. Patient's goal was verbalized to me as wanting to comfortably wear my shoe and get my foot pain under 5/10 . The patient has been instructed on the planned procedure, all risk versus benefits of the procedure discussed. These include but are not limited to: bleeding, infection, nerve and blood vessel damage, need for further surgery, delay in healing of soft tissue or bone, failure of bones to heal, non-union, mal-union, failure of the implant, prolonged pain and recovery, CPRS/RSD, DVT/PE and anesthetic complications including . No guarantees were given. All questions fully answered. The patient verbalized understanding and agreed to proceed with surgery. Written consent was obtained. Has the fx boot and walker. Postop meds: percocet, gabapentin, ibuprofen, (has phenergran at home). Operative findings:: Fragile skin with well-healed surgical scars noted. Definitive anatomic layers were difficult to ascertain. Significant varicose veins with multiple branching blood vessels. Fibrotic scar tissue with adhesions of the nerve into the fibrotic scar tissue and soft tissue mass. Along the dorsal aspect of the tarsometatarsal joint there is soft tissue mass and bone spurring noted. Soft tissue mass was more like a fibroma and measured approximately 2 cm round. It was removed and sent to specimen. There was some dorsal herniation of the extensor muscle into the subcutaneous tissue layer. Overlying the medial navicular there was a small 0.5 cm round lipoma noted, removed and sent as specimen. The deep synovitic tissue was rubbery and fibrotic and removed and also sent as specimen. The bone overlying the tarsometatarsal joint was spurred but also very soft in nature. A piece of it was removed and sent for bone culture and path. Dorsal's burring over the navicular and talus was more hard and sclerotic. No obvious drainage, purulence or deep signs of infection noted. Operative note:: On this date and time patient was deemed an appropriate surgical candidate. With informed consent signed, the patient was taken to the operating theater after popliteal/adductor canal nerve block by anesthesia. The patient was positioned supine. LMA anesthesia was induced. Tourniquet was applied to mid-calf at 225 mmHg. Right lower extremity prepped and draped in normal sterile fashion. IV Dapto and Clinda infused. Right foot soft tissue mass x3 excision: Attention was directed to the dorsal foot where a visible and palpable soft tissue mass was noted. A lazy S incision was mapped out over the mass. The limb was exsanguinated and the tourniquet was inflated. Dissection was carried through the skin through subcutaneous tissue with care taken to maintain surgical hemostasis and safely retract neurovascular structures. Dissection was more difficult due to patient's blood vessel anatomy and significant fibrotic scarring. Nerve trapped within scar tissue. Some blood vessels directly underneath the skin without definitive anatomic layers a nd places. The extensor muscle was noted to be herniated through the deep fascia and connected/adhered to the soft tissue mass. Using a mixture of sharp and blunt and dissection technique the mass was isolated. The mass was firm and yellow in its appearance like a lipoma. It was excised and sent to pathology. There was another soft tissue mass noted more dorsal medial over the talonavicular joint. It was excised and sent to pathology and appeared to be a lipoma. Deep dissection down to the level of the bone. Synovitis noted throughout the tarsometatarsal and talonavicular joints. A well-defined 1 cm mass of what appeared to be synovitic tissue was excised and also sent as a specimen. The wound was flushed with copious amounts of normal sterile saline mixed with gentamicin irrigation. Right foot tarsometatarsal/intertarsal synovectomy: Utilizing 15 blade and forceps synovectomy was performed removing all rubbery crampy-like tissue from the dorsal tarsometatarsal and intertarsal joints. Right foot exostectomy/partial excision dorsal tarsal/metatarsal (cuneiform, navicular/talus): Next attention was directed to the bone where significant arthritic degenerative changes were noted throughout the midfoot and tarsal joints. There was dorsal spurring noted. Utilizing a rongeur and then a power rasp the prominent spurring was resected. Bone was excised and a piece sent for culture and pathology. No obvious signs of osteomyelitis noted. Wound was then flushed with gentamicin irrigation. At this point no more palpable soft tissue masses or bony prominences were noted. The tourniquet was deflated and immediate anemic response was noted to the digits. Bleeding controlled. Vessels ligated with electrocautery and tied as necessary. The wounds once again flushed with c opious amounts of normal sterile saline with gentamicin. No signs of infection. 3-0 Vicryl was used to close deep tissue and deep fascia over the extensor muscle/tendon to prevent muscle herniation. A piece of amniotic graft was cut and placed over the deep tissue to prevent adhesions and scarring to the nerve. Right foot nerve decompression: Attention was then directed to the dorsal cutaneous nerve it was freed from fibrotic scar tissue and from the soft tissue mass previously. The nerve was evaluated and still noted to be intact. The other half of amniotic graft was placed around the nerve to prevent nerve inflammation and prevent adhesion to the soft tissue and skin. Vicryl was used to reapproximate the subcutaneous tissue and the skin in a running subcuticular fashion. Nylon used to reapproximate skin in an interrupted simple fashion. The wound was cleansed. 10 cc 0.5% marcaine plain was injected at the end of the case around the incision. Xeroform, Betadine soaked gauze, dry sterile dressing was then applied to the right foot. The patient was awoken from anesthesia and transferred to recovery with vital signs stable and neurovascular status intact. Patient tolerated procedure and anesthesia well without complication. Discharge/Plan: Ok to discharge home today when vss. Patient is to maintain dressing clean dry and intact. Elevate on two pillows. Non weight bearing to the right lower extremity with fracture boot and walker. Due to significant comorbidities, weak upper body strength and body habitus, okay to partially weight-bear to the right heel in the fracture boot with a walker, for transfers. Follow up in one week as previously scheduled for incision check. Tourniquet time (min): 37 Condition: stable Disposition: same day Specimens:: Right foot bone culture Right foot bone path Right foot soft tissue mass Right foot deep synovitis Right foot lipoma Complications:: None
--- NOTE | 2024-08-11 11:00 | XR_ITS ---
FINAL REPORT CLINICAL HISTORY: post op spur/exostectomy COMPARISON: 06/03/2024 FINDINGS: RIGHT FOOT 3 views of the right foot were obtained. There is no acute fracture or dislocation. Moderate osteophytes are noted. Visualized joint spaces are normally aligned. There is soft tissue edema over the dorsum of the foot. IMPRESSION: Soft tissue edema without acute bony abnormality. Reviewed, Interpreted and Dictated by Houston Elizabeth MD Transcribed by Sana Shahid Authenticated and . [facility]
--- NOTE | 2024-08-11 11:01 | P.PNANES_ITS ---
[facility] Anesthesia Record Part I Anesthesia Record I Intake, IV Amount: 650 Hydration: Adequate Estimated blood loss (mL): 25 Urine output (mL): 0 Blood Pressure: 146/86 SaO2: 93 Pulse Rate: 74 Airway Patency: Patent Respiratory Rate: 18 Temperature: 97.0 F Patient is:: Awake, Drowsy, Oral/Nasal airway (10.[address] upon arrival to PACU. Removed @11:01) and Stable Stable to PACU at:: 11:01
[2024-08-11 11:07] LABS: POC Glucose,Bedside 147 (70-110)
[2024-08-11] MEDS: IPRATROPIUM/ALBUTEROL 3 ML NEB IH (11:31)
--- NOTE | 2024-08-11 12:10 | SUR.PHASEII ---
late entry: Angela notified of pt's chest discomfort per RN no new orders at this time
--- NOTE | 2024-08-11 12:10 | SUR.PHASEII ---
pt c/o chest discomfort upon sitting on the side of the bed. tonie arenas rn asked pt x3 if she wanted to been in the ED for her chest discomfort. pt declined and stated she wanted to go home and rest. family at the bedside aware.
--- NOTE | 2024-08-11 12:13 | P.PNANES_ITS ---
[facility] Anesthesia Record Part II Anesthesia Record Part II Discharge Time: 11:33 Destination: Surgical Day Care (OP Surgery) PACU nurse assessment reviewed?: Yes Patient Condition:: Good Anesthesia Complications:: None Swallowing reflex intact?: Yes Airway Patency: Patent Cyanosis?: No Blood Pressure: 133/68 SaO2: 100 Respiratory Rate: 18 Pulse Rate: 71 Temperature: 97.0 F Mental Status: Alert & Oriented Pain level:: 0 Nausea and/or vomitting:: None Intake, IV Amount: 650 Hydration: Adequate
== END 2024-08-11 12:14 | disposition home or self-care (01) ==
PROVIDERS: PCP Internal Medicine; Visit Provider Podiatrist
PROC: (CPT 15275; principal; 2024-08-11 09:00)
DX: E11.621 Type 2 diabetes mellitus with foot ulcer (principal); M79.671 Pain in right foot; M79.89 Other specified soft tissue disorders; Z79.899 Other long term (current) drug therapy; G58.8 Other specified mononeuropathies; R29.6 Repeated falls
CPT/HCPCS: 15275; 28041; 28070; 73630; 82962; 88304; 94640; 94761; 96374; J0736; J0878; J1100; J1580; J1885; J2250; J2405; J3010; J7120; J7620; Q4211

== ENCOUNTER 2024-08-26 11:14 | Outpatient (CLI) | payer BC, SELFPAY ==
[2024-08-26 12:22] LABS: Basophils % 0.5 % (0.1-2.0); Eosinophils # 0.1 K/mm3 (0.0-0.4); Eosinophils % 2.4 % (0.1-12.0); Hematocrit 38.1 % (37.0-47.0); Hemoglobin 12.2 g/dL (12.2-16.2); Lymphocytes # 1.1 K/mm3 (0.7-4.5); Mean Corpuscular Hemoglobin 29.5 pg (27.0-31.2); Mean Corpuscular Volume 92.3 fl (81-99); Monocytes # 0.4 K/mm3 (0.1-1.0); Monocytes % 8.7 % (1.7-9.3); Neutrophils # 2.7 K/mm3 (1.8-7.8); Neutrophils % 63.2 % (37.0-80.0); Platelet Count 356 K/mm3 (142-424); Red Blood Count 4.13 M/mm3 (4.20-5.40); Red Cell Distribution Width 12.9 % (11.5-17.5); White Blood Count 4.2 K/mm3 (4.8-10.8)
[2024-08-26 13:03] LABS: Albumin Level 4.3 g/dl (3.5-5.0); Chloride 92 mmol/L (98-107); Erythrocyte Sedimentation Rate 34 mm/hr (0-30); Potassium 3.7 mmoL/L (3.5-5.1); Sodium 137 mmol/L (136-145)
[2024-08-26 13:05] LABS: Blood Urea Nitrogen 15 mg/dl (7-17); Estimated Glomerular Filt Rate 84 ml/min (>60); GFR (African American) 102 ML/MIN (>60)
[2024-08-26 13:06] LABS: Alanine Aminotransferase 19 U/L (12-78); Albumin/Globulin Ratio 1.6 (1.1-1.8); Alkaline Phosphatase 84 U/L (38-126); Anion Gap 9.7 mEq/L (5-15); Aspartate Amino Transferase 32 U/L (14-36); Bilirubin,Total 0.4 mg/dl (0.2-1.3); Calcium 9.4 mg/dl (8.4-10.2); Carbon Dioxide 39 mmol/L (22.0-30.0); Globulin 2.7 g/dL (1.3-3.2); Glucose 91 mg/dl (74-100)
[2024-08-26 14:06] LABS: C-Reactive Protein 2.4 mg/L (0-4)
== END 2024-08-26 23:59 | disposition home or self-care (01) ==
LOC: LAB 11:15
PROVIDERS: PCP Internal Medicine; Visit Provider Podiatrist
DX: Z98.890 Other specified postprocedural states (principal); R60.9 Edema, unspecified; M79.671 Pain in right foot; L84 Corns and callosities; I83.893 Varicose veins of bilateral lower extremities with other complications; E11.9 Type 2 diabetes mellitus without complications; E66.811 Obesity, class 1; Z68.32 Body mass index [BMI] 32.0-32.9, adult
CPT/HCPCS: 36415; 80053; 85025; 85651; 86140

== ENCOUNTER 2024-08-27 09:42 | Day surgery (SDC) | payer BC, SELFPAY ==
--- NOTE | 2024-08-27 09:53 | EXP.PAIN.PRO ---
Procedure Date: 08/27/24 Time: 10:12 Anesthesiologist:: Marisa Villagomez APRN Complications:: None Pre-procedure Diagnosis:: Degenerative disc disease of lumbar spine with lumbar radiculopathy symptoms, generalized joint pain Post-procedure Diagnosis:: Same Indications for Procedure:: Patient is a pleasant 64-year-old female who presents today for intrathecal refill and reprogram. Today she rates her pain a 6 out of 10. Patient does state from her last visit she did end up having surgery with Dr. Lo on her right foot. Patient states that she did go for follow-up and has a lot of swelling and they are concerned for infection. Patient was recently given a prescription of gabapentin and oxycodone for the pain postoperatively. Patient is managed with Dilaudid 20 mg/mL with a daily dose of 7.028 mg/day and bupivacaine 20 mg/mL with a daily dose of 7.028 mg/day. She denies any side effects from this medication. Patient is also managed with compounded cream from our office. Patient does state that she has not heard from them regarding any more refills. Her Daniel has been reviewed and is appropriate. Physical Exam: General: Alert and oriented x3, no acute distress, pleasant and cooperative Lungs: Respirations even and unlabored, symmetrical chest expansion Eyes: PERRL Musculoskeletal: Flexion and extension of lumbar [spine] somewhat guarded secondary to pain, [antalgic gait noted] Neurological: Speech clear, no gross sensory deficit Procedure Details:: Informed consent was obtained and the risk and benefits of the procedure were explained to the patient. The patient had noninvasive monitoring placed including noninvasive blood pressure cuff and pulse oximeter. Patient's pump was interrogated. The area over the pump was cleansed with chlorhexidine as a cleansing solution. In sterile fashion the pump was accessed with a 22-gauge needle. Approximately 4.6 mls of the pump solution was removed and discarded appropriately. The pump was then refilled with 20 mL's of Dilaudid 20 mg/mL and bupivacaine 20 mg/mL. The needle was withdrawn and a bandage was placed over the puncture site. The infusion rate was reprogrammed and continued at 7.028 mg/day of Dilaudid and bupivacaine. The patient tolerated well with no complication. Plan and Disposition:: Patient tolerated the procedure well with no complications and was discharged neurologically intact. Patient was counseled that we did put extra refills on her compounded cream however they were probably waiting for a phone call for her. We will give her the information with [facility] telephone numbers so that she can get her next refill of this cream. Patient agrees with this plan of care. Patient will return to clinic on or before their next intrathecal refill date. We will see the patient back in the clinic at the next intrathecal refill. Patient has been instructed to contact the clinic with any concerns before the next appointment. Dr. Ortiz has reviewed this note and agrees with this plan of care. This note was dictated using voice recognition software and make contain errors or omissions. -- It Is medically necessary for this patient to continue to have their intrathecal pump refilled at regular intervals. This patient had an intrathecal pain pump implanted after meeting criteria of chronic intractable pain for greater than 3 months and failing conservative treatments. Patient has committed and been compliant to the treatment plan and all planned follow up care. Since implantation of the intrathecal pain pump, the patient has had decreased pain and been more functional. Oral medications have been reduced including intake of oral opioids. Patient continues to do well with intrathecal therapy with decrease in pain symptoms and increase in functional status. Stopping intrathecal medications can lead to life threatening withdrawal, seizures, cardiac arrest, severe pain, and possible . Pumps that are not refilled at regular intervals can be damages and cause and need for replacement. We continually titrate dose and concentration to optimize pain relief and function. We are limited in concentration for certain drugs to safely deliver medications through the pump and stay within the recommendations from the [employer] Consensus [employer] Guidelines. Depending on dose and concentration these pumps may need to be refilled sooner than 3 months as we titrate. A UDS is needed to verify patient's compliance with our office pain contract. This is ordered based off specific treatments related to chronic pain with the potential to abuse certain medications.
[2024-08-27 09:59] VITALS: BP 133/78; PULSE 69; RESP 16; TEMP 36.6; O2SAT 96; BMI 32.8
[2024-08-27 10:07] VITALS: BP 111/79; PULSE 88; RESP 16; O2SAT 97
[2024-08-27 10:09] VITALS: BP 111/79; PULSE 70; RESP 16; O2SAT 94
[2024-08-27 10:20] VITALS: BP 123/74; PULSE 68; RESP 16; O2SAT 94
== END 2024-08-27 10:20 | disposition home or self-care (01) ==
PROVIDERS: PCP Internal Medicine; Visit Provider Nurse Practitioner Family
DX: M51.16 Intervertebral disc disorders with radiculopathy, lumbar region (principal); M25.50 Pain in unspecified joint
CPT/HCPCS: 62370

== ENCOUNTER 2024-10-08 08:38 | Day surgery (SDC) | payer BC, SELFPAY ==
[2024-10-08 09:26] VITALS: BP 155/85; PULSE 79; RESP 16; TEMP 36.5; O2SAT 95; BMI 32.8
--- NOTE | 2024-10-08 09:36 | EXP.PAIN.PRO ---
Procedure Date: 10/08/24 Time: 09:46 Anesthesiologist:: Marisa Villagomez APRN Complications:: None Pre-procedure Diagnosis:: Degenerative disc disease of lumbar spine with lumbar radiculopathy symptoms, generalized joint pain, RA Post-procedure Diagnosis:: Same Indications for Procedure:: Patient is a pleasant 64-year-old female who presents today for intrathecal refill and reprogram. Today she rates her pain a 7 out of 10. She denies any new traumas or injury. She does states she just has severe pain in multiple joints. She also makes mention that her neck is just killing her. Patient did have a prior neck fusion years ago. She states that she has scheduled to see her neurosurgeon in the middle of October just to see if there is anything else that needs to be done or if anything specific is wrong with her neck. Patient is currently managed with Dilaudid 20 mg/mL with a daily dose of 7.0 to 8 mg/day and bupivacaine 20 mg/mL with a daily dose of 7.0 to 8 mg/day. She is also managed with compounded cream. Patient was sent for referral to rheumatology months ago and she states she is still not heard anything from this office. Her Daniel has been reviewed and is appropriate. Physical Exam: General: Alert and oriented x3, no acute distress, pleasant and cooperative Lungs: Respirations even and unlabored, symmetrical chest expansion Eyes: PERRL Musculoskeletal: Flexion and extension of lumbar [spine] somewhat guarded secondary to pain, [antalgic gait noted] Neurological: Speech clear, no gross sensory deficit Procedure Details:: Informed consent was obtained and the risk and benefits of the procedure were explained to the patient. The patient had noninvasive monitoring placed including noninvasive blood pressure cuff and pulse oximeter. Patient's pump was interrogated. The area over the pump was cleansed with chlorhexidine as a cleansing solution. In sterile fashion the pump was accessed with a 22-gauge needle. Approximately 4.8 mls of the pump solution was removed and discarded appropriately. The pump was then refilled with 20 mL's of Dilaudid and bupivacaine 20 mg/mL. The needle was withdrawn and a bandage was placed over the puncture site. The infusion rate was reprogrammed and continued at its current dosage. The patient tolerated well with no complication. Plan and Disposition:: Patient tolerated the procedure well with no complications and was discharged neurologically intact. I did discuss with the patient that we will reach out to this provider who we sent the rheumatology referral to and see if we can get updated information. We will also try and get her the telephone number of this office as well so she can call herself. Due to her severe arthritis in multiple joints that are not accessible with the pump medication I will send in a 3-month supply of tramadol 50 mg at bedtime. Patient will return to clinic on or before their next intrathecal refill date. We will see the patient back in the clinic at the next intrathecal refill. Patient has been instructed to contact the clinic with any concerns before the next appointment. Dr. Ortiz has reviewed this note and agrees with this plan of care. This note was dictated using voice recognition software and make contain errors or omissions. -- It Is medically necessary for this patient to continue to have their intrathecal pump refilled at regular intervals. This patient had an intrathecal pain pump implanted after meeting criteria of chronic intractable pain for greater than 3 months and failing conservative treatments. Patient has committed and been compliant to the treatment plan and all planned follow up care. Since implantation of the intrathecal pain pump, the patient has had decreased pain and been more functional. Oral medications have been reduced including intake of oral opioids. Patient continues to do well with intrathecal therapy with decrease in pain symptoms and increase in functional status. Stopping intrathecal medications can lead to life threatening withdrawal, seizures, cardiac arrest, severe pain, and possible . Pumps that are not refilled at regular intervals can be damages and cause and need for replacement. We continually titrate dose and concentration to optimize pain relief and function. We are limited in concentration for certain drugs to safely deliver medications through the pump and stay within the recommendations from the Pol[employer]al[employer] Consensus [employer] Guidelines. Depending on dose and concentration these pumps may need to be refilled sooner than 3 months as we titrate. A UDS is needed to verify patient's compliance with our office pain contract. This is ordered based off specific treatments related to chronic pain with the potential to abuse certain medications.
[2024-10-08 09:40] VITALS: BP 147/88; PULSE 71; RESP 18; O2SAT 98
[2024-10-08 09:43] VITALS: BP 147/88; PULSE 71; RESP 18; O2SAT 98
[2024-10-08 09:55] VITALS: BP 155/82; PULSE 69; RESP 16; O2SAT 97
== END 2024-10-08 09:55 | disposition home or self-care (01) ==
PROVIDERS: PCP Internal Medicine; Visit Provider Nurse Practitioner Family
DX: M51.16 Intervertebral disc disorders with radiculopathy, lumbar region (principal); M25.50 Pain in unspecified joint; M06.9 Rheumatoid arthritis, unspecified
CPT/HCPCS: 62370

== ENCOUNTER 2024-10-27 16:05 | Outpatient (CLI) | payer BC, SELFPAY ==
--- NOTE | 2024-10-27 16:08 | XR_ITS ---
PROCEDURE INFORMATION: Exam: XR Left Knee Exam date and time: 10/27/2024 4:09 PM Age: 64 years old Clinical indication: Pain; Knee; Left; Additional info: Left knee pain, status post fall 2 weeks ago TECHNIQUE: Imaging protocol: Radiologic exam of the left knee. Views: 3 views. COMPARISON: CR XR KNEE LT 4V 08/16/2019 10:50 AM FINDINGS: Bones/joints: No yrs, dislocations, or focal bone lesions. Moderately severe medial joint space narrowing and osteophytes. Osteophytes also affect the posterior patella and the posterior tibial plateau near the PCL attachment. Soft tissues: Medial prepatellar soft tissue swelling. No soft tissue gas or radiopaque foreign bodies. IMPRESSION: 1. Significant medial and prepatellar soft tissue swelling likely due to a hematoma. Follow-up as clinically warranted. 2. No fractures in the left knee. 3. Moderately severe osteoarthritis in the left knee.
== END 2024-10-27 23:59 | disposition home or self-care (01) ==
LOC: RAD 16:06
PROVIDERS: PCP Internal Medicine; Visit Provider Internal Medicine
DX: M25.562 Pain in left knee (principal); W19.XXXA Unspecified fall, initial encounter; M17.12 Unilateral primary osteoarthritis, left knee; M25.762 Osteophyte, left knee; R22.42 Localized swelling, mass and lump, left lower limb
CPT/HCPCS: 73562

== ENCOUNTER 2024-11-19 09:31 | Day surgery (SDC) | payer BC, SELFPAY ==
[2024-11-19 09:39] VITALS: BP 117/67; PULSE 73; RESP 16; TEMP 36.8; O2SAT 95; BMI 32.1
[2024-11-19 09:57] VITALS: BP 125/73; PULSE 73; RESP 18; O2SAT 96
--- NOTE | 2024-11-19 10:11 | EXP.HP ---
History of Present Illness *Admission Date: 11/19/24 *Reason for visit:: Intrathecal refill and reprogram; DDD *History of present illness: Degenerative disc disease of lumbar spine [facility] Disclaimer: The information contained in this section may have been updated after the patient was seen, as this information can be updated by other users. Medical History Frequent falls Dysphagia, unspecified Iron deficiency anemia BMI 33.0-33.9,adult Urge incontinence Primary generalized (osteo)arthritis Constipation, unspecified Irritable bowel syndrome with diarrhea Gastro-esophageal reflux disease without esophagitis Venous insufficiency (chronic) (peripheral) Anxiety Migraine Urinary incontinence Diabetes mellitus, type 2 Hyperlipidemia Normal colonoscopy Hx of fracture of wrist x4 right Derangement of sacroiliac joint Fracture acetabulum-closed Acute postoperative anemia due to expected blood loss Diabetes Degenerative joint disease of left hip HHD (hypertensive heart disease) CAD (coronary artery disease) HTN (hypertension) Diastolic dysfunction Right knee pain Right shoulder injury Post laminectomy syndrome DDD (degenerative disc disease), lumbar Surgical History History of cholecystectomy History of hysterectomy History of knee replacement History of surgery on left wrist History of left hip replacement x2 Family History Other Family history of diabetes mellitus type II Family hx-stroke Social History Smoking Status: Never smoker second hand exposure: No alcohol intake: never counseling provided: none substance use type: denies use current occupational status: unemployed Travel in the last 8 weeks?: None household members: spouse and family housing: house current occupation: [employer] current occupational exposures/hazards: No caffeine: Yes do you feel safe at home: Yes victim of physical abuse: No victim of emotional abuse: No victim of sexual abuse: No would you like helpful sources: No Have you lived/traveled outside US in past 30 days?: No Contact w/someone who lives/traveled outside US past 30 days?: No Exposure to someone with infectious disease in past 14 days?: No Do you have a fever (greater than 100.4 F or 38 C)?: No Have you tested positive for COVID-19?: No Exposed to someone with COVID-19 in past 14 days?: No Do you have a sore throat?: No Do you have a cough?: No Do you have any weakness?: No Do you have any diarrhea?: No Are you experiencing any unusual bleeding?: No Do you have any muscle aches/pain?: No Do you have any abdominal pain?: No Are you experiencing loss of taste or smell?: No Other Medical History Have you received the Flu Vaccine for this season: No Have you received the Pneumonia Vaccine: No Review of Systems Review of Systems Review of systems:: pertinent systems reviewed and negative unless documented below Review of systems (narrative): Review of Systems: General: No recent weight changes, no fever, no sleep disturbances Respiratory: No cough, no shortness of air, no recurring pulmonary infections Cardiovascular/peripheral vascular: No chest pain, no palpitations, no edema, no shortness of breath Gastrointestinal: No new onset incontinence, normal bowel movements reported Genitourinary: No new onset incontinence Musculoskeletal: Chronic back pain, generalized joint pain Psychiatric: [Normal mood/affect] Neurological: [Denies weakness in extremities], [denies balance issues] Meds Home Medications and Allergies Home Medications ?Medication ?Instructions ?Recorded ?Confirmed ?Type ascorbic acid (vitamin C) 500 mg 500 mg PO DAILY Supplement 07/16/17 11/19/24 History tablet cholecalciferol (vitamin D3) 10 400 unit PO DAILY Supplement 07/16/17 11/19/24 History mcg (400 unit) capsule multivitamin 1 tab PO DAILY suppleemnt 06/20/22 11/19/24 History atogepant 60 mg tablet (Qulipta) 60 mg PO DAILY #30 tabs 12/05/23 11/19/24 Rx spironolactone 25 mg tablet 25 mg PO DAILY PRN GERD #15 tabs 12/05/23 11/19/24 Rx cyanocobalamin (vitamin B-12) 100 mcg IM QMONTH 12/19/23 11/19/24 History 1,000 mcg/mL injection solution syringe with needle 3 mL 25 gauge #1 ea 12/19/23 11/19/24 History x 1 (BD Luer-Filomena Syringe) lorazepam 1 mg tablet 1 mg PO Q6H PRN anxiety #120 tabs 01/22/24 11/19/24 Rx duloxetine 60 mg capsule,delayed See Rx Instructions .Route 03/18/24 11/19/24 Rx release .COMPLEX #60 caps furosemide 40 mg tablet 40 mg PO DAILY PRN edema #30 tabs 03/18/24 11/19/24 Rx rimegepant 75 mg disintegrating 75 mg PO DAILY PRN Migraine 04/05/24 11/19/24 History tablet (Nurtec ODT) Headache mupirocin 2 % topical ointment 1 applic topical BID cellulitis 3 05/25/24 11/19/24 Rx weeks #22 grams carvedilol 3.125 mg tablet See Rx Instructions .Route 07/21/24 11/19/24 Rx .COMPLEX #180 tabs ibuprofen 600 mg tablet 600 mg PO TID PRN pain 30 days #90 08/05/24 11/19/24 Rx tabs potassium chloride 20 mEq 1 meq (0.05 x 20 mEq) PO DAILY 08/24/24 11/19/24 Rx tablet,extended release(part/cryst) supplemtn #90 tabs gabapentin 100 mg capsule 100 mg PO TID PRN nerve pain 10 08/26/24 11/19/24 Rx days #30 caps semaglutide 0.25 mg or 0.5 mg (2 0.25 mg (0.368 mL) SQ WEEKLY #3 mL 09/28/24 11/19/24 Rx mg/3 mL) subcutaneous pen injector tramadol 50 mg tablet 50 mg PO HS #30 tabs 10/08/24 11/19/24 Rx lamotrigine 200 mg tablet See Rx Instructions .Route 11/05/24 11/19/24 Rx .COMPLEX #60 tabs promethazine 25 mg tablet 25 mg PO DIRECTED PRN Nausea 11/08/24 11/19/24 Rx #30 tabs semaglutide 0.25 mg or 0.5 mg (2 0.5 mg (0.736 mL) SQ WEEKLY #3 mL 11/08/24 11/19/24 Rx mg/3 mL) subcutaneous pen injector zolpidem 10 mg tablet 10 mg PO HS PRN Sleep #30 tabs 11/08/24 11/19/24 Rx New Prescriptions to Start Prescriptions: Allergies Allergy/AdvReac Type Severity Reaction Status Date / Time cephalexin (From [employer] Allergy Severe SERUM Verified 11/08/24 13:21 SICKNESS ; JOINTS LOCKED morphine Allergy Intermediate I-HIVES Verified 11/08/24 13:21 Penicillins Allergy Intermediate I-HIVES Verified 11/08/24 13:21 adhesive tape AdvReac Mild Unknown Verified 11/08/24 13:21 allergy reaction Exam Data for Last 24 hours Vital signs and Labs for Last 24 Hours: Temp Pulse Resp BP Pulse Ox O2 Del Method 98.2 F 73 18 125/73 96 Room Air 11/19/24 09:39 11/19/24 09:57 11/19/24 09:57 11/19/24 09:57 11/19/24 09:57 11/19/24 09:57 I & O for Last 24 hours: Intake & Output 11/16/24 11/17/24 11/18/24 11/19/24 23:59 23:59 23:59 23:59 Weight 205 lb *Routine HEENT Exam Head: Present normocephalic and atraumatic Eye: Present PERRL ENT: Present mucous membranes moist *Routine Neck Exam Neck: Present supple *Routine Respiratory Exam Respiratory: Present CTA bilaterally *Routine Cardiovascular Exam Cardiovascular: Present RRR *Routine Abdominal Exam Abdominal: Present soft *Routine Rectal Exam Rectal:: deferred *Routine Genitalia Exam Genitalia:: normal female Routine Back/Spine/Pelvis Exam Back/Spine: Present pain with flexion *Routine Skin Exam Skin: Present intact *Routine Neurological Exam Neurological: Present alert and oriented X3 Routine Psychiatric Exam Psychiatric: Present normal affect and normal thought process Assessment and Plan *Assessment and plan (1) DDD (degenerative disc disease), lumbar: Status: Chronic Category: Medical Code(s): M51.369 - Other intervertebral disc degeneration, lumbar region without mention of lumbar back pain or lower extremity pain (2) Post laminectomy syndrome: Status: Chronic Category: Medical Code(s): M96.1 - Postlaminectomy syndrome, not elsewhere classified Plan Patient has been instructed to contact the clinic with any concerns before the next appointment. Dr. Ortiz has reviewed this note and agrees with this plan of care. This note was dictated using voice recognition software and make contain errors or omissions. All injections are used with Lidocaine, Bupivacaine and dexamethasone. Occasionally urine drug screen is needed to verify patient's compliance with our office pain contract. This is ordered based off specific treatments related to chronic pain with the potential to abuse certain medications.
--- NOTE | 2024-11-19 10:14 | P.PCN_ITS ---
Procedure Date: 11/19/24 Time: 10:14 Anesthesiologist:: Marisa Villagomez APRN Complications:: None Pre-procedure Diagnosis:: Degenerative disc disease of lumbar spine with lumbar radiculopathy symptoms, lumbar postlaminectomy syndrome Post-procedure Diagnosis:: Same Indications for Procedure:: Patient is a pleasant 64-year-old female who presents today for intrathecal refill and reprogram. Today she rates her pain a 6 out of 10. She denies any new trauma or injury. Patient is currently managed with Dilaudid 20 mg/mL with a daily dose of 7.02 8 mg/day and bupivacaine 20 mg/mL with a daily dose of 7.028 milligrams per day. She is also managed with compounded cream and has been recently given a 3-month supply of tramadol 50 mg at bedtime. She denies any side effects from this patient her Daniel has been reviewed and is appropriate. Physical Exam: General: Alert and oriented x3, no acute distress, pleasant and cooperative Lungs: Respirations even and unlabored, symmetrical chest expansion Eyes: PERRL Musculoskeletal: Flexion and extension of lumbar [spine] somewhat guarded se condary to pain, [antalgic gait noted] Neurological: Speech clear, no gross sensory deficit Procedure Details:: Informed consent was obtained and the risk and benefits of the procedure were explained to the patient. The patient had noninvasive monitoring placed including noninvasive blood pressure cuff and pulse oximeter. Patient's pump was interrogated. The area over the pump was cleansed with chlorhexidine as a cleansing solution. In sterile fashion the pump was accessed with a 22-gauge needle. Approximately 4.8 mls of the pump solution was removed and discarded appropriately. The pump was then refilled with 20 mL's of Dilaudid 20 mg/mL and bupivacaine 20 mg/mL. The needle was withdrawn and a bandage was placed over the puncture site. The infusion rate was reprogrammed and increased to Dilaudid 7.732 mg/day. The patient tolerated well with no complication. Plan and Disposition:: Patient tolerated the procedure well with no complications and was discharged neurologically intact. I did discuss with the patient due to her having short refill dates between her pump feel that we can increase her concentration of Dilaudid to 25 mg/mL. Patient agrees with this plan of care. We will make this change for her upcoming pump refill date. Patient does not need refills on her tramadol at this time. Patient at our last visit had been sent for rheumatology consult however she states she has not heard any updates from this. We will continue to monitor this. Patient will return to clinic on or before their next intrathecal refill date. We will see the patient back in the clinic at the next intrathecal refill. Patient has been instructed to contact the clinic with any concerns before the next appointment. Dr. Ortiz has reviewed this note and agrees with this plan of care. This note was dictated using voice recognition software and make contain errors or omissions. -- It Is medically necessary for this patient to continue to have their intrathecal pump refilled at regular intervals. This patient had an intrathecal pain pump implanted after meeting criteria of chronic intractable pain for greater than 3 months and failing conservative treatments. Patient has committed and been compliant to the treatment plan and all planned follow up care. Since implantation of the intrathecal pain pump, the patient has had decreased pain and been more functional. Oral medications have been reduced including intake of oral opioids. Patient continues to do well with intrathecal therapy with decrease in pain symptoms and increase in functional status. Stopping intrathecal medications can lead to life threatening withdrawal, seizures, cardiac arrest, severe pain, and possible . Pumps that are not refilled at regular intervals can be damages and cause and need for replacement. We continually titrate dose and concentration to optimize pain relief and function. We are limited in concentration for certain drugs to safely deliver medications through the pump and stay within the recommendations from the [employer] Consensus Committee Guidelines. Depending on dose and concentration these pumps may need to be refilled sooner than 3 months as we titrate. A UDS is needed to verify patient's compliance with our office pain contract. This is ordered based off specific treatments related to chronic pain with the potential to abuse certain medications.
[2024-11-19 10:20] VITALS: BP 113/67; PULSE 66; RESP 16; O2SAT 95
== END 2024-11-19 10:20 | disposition home or self-care (01) ==
PROVIDERS: PCP Internal Medicine; Visit Provider Nurse Practitioner Family
DX: M51.16 Intervertebral disc disorders with radiculopathy, lumbar region (principal); M96.1 Postlaminectomy syndrome, not elsewhere classified
CPT/HCPCS: 62370

== ENCOUNTER 2024-12-14 09:38 | Outpatient (CLI) | payer BC, SELFPAY ==
--- OUTSIDE RECORDS SUMMARY | 2024-12-14 09:40 | XMS_ITS | Continuity of Care Document ---
Author Organization [facility] Address [address] [place] [address] Care Team Providers Care Shake Splitter Name Role Phone LUCASYURYNichelle Zaragoza Primary Care Provider Assessment Encounter Date Assessment Date Assessment LastModified by Organization Details LastModified Time 10/25/2024 10/25/2024 ASSESSMENT: Ms. Kennedy is a 64-year-old female who returns to the office after last being seen 05/29/2023 with reports of continued and worsening posterior neck pain to her lateral left shoulder associated with numbness into her hands. She previously had a C3-6 ACDF for cord compression with Dr. Harper on 10/30/2022. She reports after surgery, she continued to have headaches so he referred her to Dr. Ortega in neurology. He has gotten better control of her migraines however, around a year ago, she started to appreciate more posterior neck pain. She reports pain to the back of her neck and towards her left shoulder and that at times, when she extends her head back, she will feel a popping that she feels as though something in her neck is about to break. She is scheduled to see a plastic surgeon at the [facility] at the end of the month to address some contractures to the cervical incision. She continues to use a standing walker as she reports she is not able to use just a walking stick any longer after she has suffered several falls. She reports having a couple falls regularly a week. She also reports that she has issues with dropping things all the time with her hands and she feels both of these symptoms have worsened. She has not done any recent physical therapy but does still have a pain pump managed by Dr. Bux with hydromorphone and bupivacaine. She denies any bowel or bladder control changes. IMAGING: No new imaging available for review Nurse practitioner visit PLAN: Cervical AP, lateral, flexion, extension x-rays Cervical CT scan without contrast Cervical MRI without contrast Follow-up with Dr. Harper Ms. Kennedy is going to move forward with updated imaging of her cervical spine to include x-rays with flexion and extension to evaluate for any instability. We will also request a cervical CT scan to evaluate the status of her fusion to assess for any pseudoarthrosis. A cervical MRI will be completed to evaluate for any neural impingement or cord compression given her reports of worsening balance and dexterity. We did discuss that her surgery was to try to prevent the symptoms from worsening and that neck surgery for posterior neck pain may not be traditionally recommended. She will contact our office after the MRI is done. Dr. Harper will review these images to determine if she would be a candidate for injections or further surgical interventions. She verbalized understanding of these instructions and is agreeable to this plan. She has no further questions or concerns at this time. She is satisfied with this plan of care. [id number] Not available 10/25/2024 15:01:06 Plan of Treatment Reminders Order Date Submit Date Provider Last Modified By Organization Details Last Modified Time Details Appointments CT SCAN 2024 08:20A M ct_scan Not available Not available Not available MRI 2024 08:40A M MRI Not available Not available Not available RECHECK r 2024 09:45A M FRANCISCA HARPER MD Not available Not available Not available Lab None recorded . Referral None recorded . Procedures None recorded . Surgeries None recorded . Imaging None recorded . Medication Orders None recorded . Patient TargetsNo targets recorded. Patient InstructionsNo instructions recorded. Reason for Referral None Reported. 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 504453715 Active 2014 From Automated Load;Provi alberto: Sundeep Russo;Sta tus: Active Not Available [facility] 6 07:17:48 Spondylol isthesis 938969560 Active 2014 From Automated Load;Provi alberto: Sundeep Russo;Sta tus: Active Not Available [facility] 6 07:17:48 Pain in right lower limb 684764878 Active 2015 From Automated Load;Provi alberto: Francisca Harper;St atus: Active Not Available [facility] 6 07:17:48 Clinical finding Active 2015 Provider: Casey Cesar;Alec kelsey: Active Not Available [facility] 6 07:17:48 Problem Notes None recorded. Medical Equipment None Reported. Allergies Allergen ID Allergen Name Allergen Category Reaction Reaction Severity Criticality Documentation Date Start Date Code Code System Note Provider Name and Address Organization Details Recorded Time 586887 morphine sulfate medicatio n Not available Not available Not available 06/06/20162009 08991 RxNorm Comme nt: Creat ed By: Karli bacaCr eated Date: 2009 12:23 :36 PM; Not Available [facility] 6 10:13:45 535843 Keflex medicatio n Not available Not available Not available 06/06/20162009 06270 7 RxNorm Comme nt: Creat ed By: Karli Núñez ra;Cr eated Date: 2009 12:23 :12 PM; Not Available [facility] 6 14:24:18 [id number] Product containin g penicilli n (product) medicatio n Not available Not available Not available 06/07/20162009 32249 8001 SNOMED Comme nt: Creat ed By: Karli Garcia eated Date: 2009 12:23 :20 PM; Not Available [facility] 04:55:17 Medications Name Sig Start Date Stop Date Status Note LastModified by Organization Details LastModified Time Flomax 0.4 mg capsule Daily active Duration: 30 days;Freq uency: daily;Med ication Descripti on: tamsulosi n; Dosage:1; Route:ora l; refills:6 ; Quantity: 30 capsule Not Available Not Available Not Available furosemide 40 mg tablet TAKE ONE TABLET BY MOUTH EVERY DAY NEEDED FOR EDEMA active Not Available Not Available No t Available Levsin 0.125 mg tablet Four times a day active Frequency : qid;Medic ation Descripti on: hyoscyami ne; Dosage:1; Route:ora l; refills:0 Not Available Not Available Not Available Protonix 40 mg tablet,del ayed release Daily active Duration: 30 days;Freq uency: daily;Med ication Descripti on: pantopraz ole; Dosage:1; Route:ora l; refills:0 Not Available Not Available Not Available gabapentin 600 mg tablet TAKE ONE TABLET BY MOUTH THREE TIMES DAILY MAY CAUSE DROWSINES S active Not Available Not Available No t Available doxycyclin e hyclate 100 mg capsule TAKE ONE CAPSULE BY MOUTH TWICE DAILY FOR 10 DAYS -- FINISH ALL MEDICINE -- active Not Available Not Available No t Available lamotrigin e 200 mg tablet TAKE ONE TABLET BY MOUTH TWICE DAILY active Not Available Not Available No t Available clindamyci n HCl 300 mg capsule TAKE ONE CAPSULE BY MOUTH THREE TIMES DAILY FOR infection FOR 10 DAYS -- FINISH ALL MEDICINE -- take with a large GLASS of water active Not Available Not Available No t Available Estratest F.S. 1.25 mg-2.5 mg tablet active Medicatio n Descripti on: esterifie d estrogens -methylte stosteron e; Dosage:1; Route:ora l; refills:0 Not Available Not Available Not Available triazolam 0.25 mg tablet TAKE TWO TABLETS BY MOUTH 1 HOUR PRIOR TO DENTAL APPOINTME NT. DO NOT DRIVE WHILE TAKING MAY CAUSE DROWSINES S active Not Available Not Available No t Available Multiple Vitamin capsule Daily active Frequency : daily;Med ication Descripti on: multivita min; Dosage:1; Route:ora l; refills:0 Not Available Not Available Not Available ibuprofen 800 mg tablet TAKE ONE TABLET BY MOUTH EVERY 6 HOURS NEEDED FOR mild pain --TAKE WITH FOOD-- active Not Available Not Available No t Available tizanidine 4 mg tablet TAKE ONE TABLET BY MOUTH TWICE DAILY MAY CAUSE DROWSINES S active Not Available Not Available No t Available promethazi ne 12.5 mg tablet TAKE ONE TABLET BY MOUTH THREE TIMES DAILY NEEDED FOR NAUSEA AND VOMITING MAY CAUSE DROWSINES S active Not Available Not Available No t Available ondansetro n HCl 4 mg tablet active Not Available Not Available Not Available Medrol (Ck) 4 mg tablets in a dose pack Daily active Duration: 6 days;Inst ructions: Quantity one pack;Freq uency: daily;Med ication Descripti on: methylpre dnisolone ; Dosage:as directed; Route:ora l; refills:0 ; Quantity: 1 tablet Not Available Not Available Not Available prednisone 20 mg tablet TAKE TWO TABLETS BY MOUTH ONCE DAILY FOR 5 DAYS --TAKE WITH FOOD-- active Not Available Not Available No t Available Nexium 40 mg capsule,de layed release Every other day active Frequency : qod;Medic ation Descripti on: esomepraz ole; Dosage:1; Route:ora l; refills:0 Not Available Not Available Not Available potassium chloride ER 10 mEq tablet,ext ended release active Not Available Not Available Not Available ciprofloxa nuria 250 mg tablet TAKE ONE TABLET BY MOUTH TWICE DAILY FOR 3 DAYS -- FINISH ALL MEDICINE -- active Not Available Not Available No t Available sulfametho xazole 800 mg-trimeth oprim 160 mg tablet TAKE ONE TABLET BY MOUTH TWICE DAILY -- FINISH ALL MEDICINE -- active Not Available Not Available No t Available tramadol 50 mg tablet TAKE ONE TABLET BY MOUTH EVERY DAY AT BEDTIME MAY CAUSE DROWSINES S active Not Available Not Available No t Available carvedilol 3.125 mg tablet TAKE ONE TABLET BY MOUTH TWICE DAILY FOR BLOOD PRESSURE active Not Available Not Available No t Available potassium chloride ER 20 mEq tablet,ext ended release(pa rt/cryst) TAKE ONE TABLET BY MOUTH EVERY DAY active Not Available Not Available No t Available famotidine 20 mg tablet TAKE ONE TABLET BY MOUTH EVERY DAY AT BEDTIME active Not Available Not Available No t Available Vitamin C 1,000 mg tablet Daily active Frequency : daily;Med ication Descripti on: ascorbic acid; Dosage:1; Route:ora l; refills:0 Not Available Not Available Not Available lorazepam 0.5 mg tablet Every six hours active Frequency : q6h;Alt Frequency : prn;Medic ation Descripti on: lorazepam ; Dosage:1; Route:ora l; refills:0 Not Available Not Available Not Available Percocet 10 mg-325 mg tablet Three times a day active Frequency : tid;Alt Frequency : prn;Medic ation Descripti on: acetamino phen-oxyc odone; Dosage:1; Route:ora l; refills:0 Not Available Not Available Not Available gabapentin 800 mg tablet TAKE ONE TABLET BY MOUTH FOUR TIMES DAILY MAY CAUSE DROWSINES S active Not Available Not Available No t Available ciprofloxa nuria 0.3 % eye drops instill 1 DROP into affected eye(s) FOUR TIMES DAILY UNTIL CLEAR active Not Available Not Available No t Available hydrocodon e 7.5 mg-acetami nophen 325 mg tablet TAKE ONE TABLET BY MOUTH EVERY 6 HOURS NEEDED MAY CAUSE DROWSINES S active Not Available Not Available No t Available cyanocobal valerio (vit B-12) 1,000 mcg/mL injection solution INJECT 1ML INTRAMUSC ULARLY EVERY DAY FOR 7 DAYS THEN EVERY WEEK FOR 4 WEEKS THEN MONTHLY active Not Available Not Available No t Available Urecholine 25 mg tablet Three times a day 2015 active Duration: 30 days;Inst ructions: 1, tid;Frequ ency: tid;Medic ation Descripti on: bethanech ol; Dosage:1; Route:ora l; refills:1 1; Quantity: 90 tablet Not Available Not Available Not Available promethazi ne 25 mg tablet TAKE 1/2 TO 1 TABLET BY MOUTH EVERY 6 HOURS NEEDED FOR NAUSEA AND VOMITING MAY CAUSE DROWSINES S active Not Available Not Available No t Available BD Luer-Filomena Syringe 3 mL 25 gauge x 1 USE TO inject B12 active Not Available Not Available No t Available mupirocin 2 % topical ointment APPLY TOPICALLY TO THE AFFECTED AREA(S) UP TO TWICE DAILY FOR CELLULITI S FOR three WEEKS DIRECTED active Not Available Not Available No t Available furosemide 20 mg tablet active Not Available Not Available Not Available gabapentin 100 mg capsule TAKE ONE CAPSULE BY MOUTH THREE TIMES DAILY NEEDED FOR nerve pain MAY CAUSE DROWSINES S active Not Available Not Available No t Available lorazepam 1 mg tablet TAKE ONE TABLET BY MOUTH EVERY 6 HOURS NEEDED FOR ANXIETY MAY CAUSE DROWSINES S active Not Available Not Available No t Available Stadol NS 10 mg/mL nasal spray Daily active Instructi ons: One nostril only;Freq uency: daily;Alt Frequency : prn;Medic ation Descripti on: butorphan ol; Dosage:1 spray; Route:jose guadalupe al; refills:0 ; Quantity: 1 spray Not Available Not Available Not Available ibuprofen 600 mg tablet TAKE ONE TABLET BY MOUTH THREE TIMES DAILY NEEDED FOR PAIN MAY CAUSE DROWSINES S active Not Available Not Available No t Available oxycodone- acetaminop hen 7.5 mg-325 mg tablet TAKE ONE TABLET BY MOUTH EVERY 4 TO 6 HOURS NEEDED FOR PAIN MAY CAUSE DROWSINES S active Not Available Not Available No t Available levofloxac in 750 mg tablet TAKE ONE TABLET BY MOUTH ONCE DAILY FOR FOURTEEN DAYS -- FINISH ALL MEDICINE -- active Not Available Not Available No t Available zolpidem 10 mg tablet TAKE ONE TABLET BY MOUTH EVERY DAY AT BEDTIME NEEDED FOR SLEEP active Not Available Not Available No t Available ondansetro n 4 mg disintegra ting tablet active Not Available Not Available Not Available lamotrigin e 100 mg tablet active Not Available Not Available Not Available oxycodone 5 mg tablet TAKE ONE TABLET BY MOUTH EVERY 6 HOURS NEEDED FOR post op pain MAY CAUSE DROWSINES S active Not Available Not Available No t Available Premarin 0.3 mg tablet Daily active Frequency : daily;Med ication Descripti on: conjugate d estrogens ; Dosage:1; Route:ora l; refills:0 Not Available Not Available Not Available nitrofuran toin monohydrat e/macrocry stals 100 mg capsule TAKE ONE CAPSULE BY MOUTH TWICE DAILY FOR 5 DAYS -- FINISH ALL MEDICINE -- --TAKE WITH A MEAL/FOOD -- active Not Available Not Available No t Available duloxetine 60 mg capsule,de layed release TAKE ONE CAPSULE BY MOUTH TWICE DAILY active Not Available Not Available No t Available ibandronat e 150 mg tablet TAKE ONE TABLET BY MOUTH ONCE a MONTH (take ON an EMPTY stomach, 1 hour prior TO eating drinking) take with water active Not Available Not Available No t Available Vitamin B-12 Daily active Frequency : daily;Med ication Descripti on: thiamine; Dosage:1; Route:ora l; refills:0 Not Available Not Available Not Available Vitamin D Daily active Frequency : daily;Med ication Descripti on: ergocalci ferol; Dosage:1; Route:ora l; refills:0 Not Available Not Available Not Available gabapentin active Medicatio n Descripti on: gabapenti n; refills:0 Not Available Not Available Not Available Levaquin active Medicatio n Descripti on: levofloxa nuria; refills:0 Not Available Not Available Not Available sodium,pot assium,mag sulfates 17.5 gram-3.13 gram-1.6 gram oral soln dilute; drink full AMOUNT early evening BEFORE procedure AND NEXT morning AT least 2 hours BEFORE procedure ; FOLLOWING with 960 ML of water. active Not Available Not Available No t Available iron ER 159 mg (45 mg iron) tablet,ext ended release TAKE ONE TABLET BY MOUTH EVERY DAY active Not Available Not Available No t Available Narcan 4 mg/actuati on nasal spray --do not prime-- SPRAY 1 SPRAY in 1 nostril DIRECTED NEEDED FOR oversedat ion active Not Available Not Available No t Available Nurtec ODT 75 mg disintegra ting tablet TAKE ONE TABLET UNDER THE TONGUE NEEDED FOR MIGRAINE DIRECTED (MAX OF 1 PER DAY) active Not Available Not Available No t Available Qulipta 60 mg tablet TAKE ONE TABLET BY MOUTH EVERY NIGHT active Not Available Not Available No t Available Ozempic 0.25 mg or 0.5 mg (2 mg/3 mL) subcutaneo us pen injector INJECT .25 MG SUBCUTANE OUSLY ONCE A WEEK FOR 4 WEEKS, THEN increase TO 0.5mg DOSE active Not Available Not Available No t Available Vitals Date Recorded Body height Body mass index (BMI) Body weight Systolic blood pressure Diastolic blood pressure Provider Name and Address Organization Details Last Updated DateTime 10/25/2024 171.45 cm 30.1 kg/m2 90230.5 1 g 124 mm[Hg] 74 mm[Hg] [facility] 13:49:10 Social History None recorded. Functional Status None recorded. Mental Status None recorded. Family History Nothing Reported. Medical History No medical history recorded. Gynecological HistoryNo gynecological history recorded. Obstetrics History GPAL:G 0 P 0 0 0 0 Past Encounters Encounter ID Performer Location Encounter Start Date Encounter Closed Date Diagnosis/Indication Diagnosis SNOMED-CT Code Diagnosis ICD10 Code Diagnosis Note [id number] CRISTIANO FERRARI APRN [facility] [address] [place] [address] 10/25/2024 13:35:22 10/26/2024 05:04:13 Cervical spondylosis 646168893 M47.812 Mckeon's reflex positive 329115620 R29.2 Impairment of balance 38 2855022 R26.89 Poor manual dexterity 30 1198591 R29.898 Health Concerns Section Related Observation LastModified by Organization Detai ls LastModified Time None Recorded Concern Status LastModified by Organization Details LastModified Time None Recorded Payers Encounter Date Sequence Insurance Name Policy Number Policy Lozano Covered Member ID Lozano Member ID Guarantor Name 10/25/2024 1 [place] [id number] Paige S Brent [id number] Paige Low Brent Notes Date Note Type Note Provider Name and Address Organization Details Recorded Time 10/25/2024 text/html Ms. Kennedy is a 64-year-old female who returns to the office after last being seen 05/29/2023 with reports of continued and worsening posterior neck pain to her lateral left shoulder associated with numbness into her hands. She previously had a C3-6 ACDF for cord compression with Dr. Harper on 10/30/2022. CRISTIANO FERRARI APRN [address] [place], [address], [facility] 10/25/2024 15:01:40 OBGyn Episode No OBEpisode recorded.
--- NOTE | 2024-12-14 09:41 | XR_ITS ---
FINAL REPORT CLINICAL HISTORY: Fall x 3 days, right hip pain COMPARISON: 04/11/2024 FINDINGS: AP and frog leg views of the right hip were obtained. There are postoperative changes from left hip arthroplasty. No acute osseous abnormality of the pelvis or right hip. The right hip joint space is preserved. Soft tissues are unremarkable. IMPRESSION: No acute osseous abnormality of the right hip. Reviewed, Interpreted and Dictated by Elisabeth Casarez MD Transcribed by Sana Shahid Authenticated and [facility]
== END 2024-12-14 23:59 | disposition home or self-care (01) ==
LOC: RAD 09:39
PROVIDERS: PCP Internal Medicine; Visit Provider Internal Medicine
DX: M25.551 Pain in right hip (principal); Z96.642 Presence of left artificial hip joint; W19.XXXA Unspecified fall, initial encounter
CPT/HCPCS: 73502

== ENCOUNTER 2024-12-31 14:30 | Day surgery (SDC) | payer BC, SELFPAY ==
[2024-12-31 14:37] VITALS: BP 147/82; PULSE 76; RESP 16; TEMP 36.8; O2SAT 99; BMI 31.3
[2024-12-31 15:01] VITALS: BP 149/80; PULSE 60; RESP 18; O2SAT 92
--- NOTE | 2024-12-31 15:11 | EXP.PM.HP ---
History of Present Illness *Admission Date: 12/31/24 *Reason for visit:: Intrathecal refill; DDD *[facility] Disclaimer: The information contained in this section may have been updated after the patient was seen, as this information can be updated by other users. Medical History Frequent falls Dysphagia, unspecified Iron deficiency anemia BMI 33.0-33.9,adult Urge incontinence Primary generalized (osteo)arthritis Constipation, unspecified Irritable bowel syndrome with diarrhea Gastro-esophageal reflux disease without esophagitis Venous insufficiency (chronic) (peripheral) Anxiety Migraine Urinary incontinence Diabetes mellitus, type 2 Hyperlipidemia Normal colonoscopy Hx of fracture of wrist x4 right Derangement of sacroiliac joint Fracture acetabulum-closed Acute postoperative anemia due to expected blood loss Diabetes Degenerative joint disease of left hip HHD (hypertensive heart disease) CAD (coronary artery disease) HTN (hypertension) Diastolic dysfunction Right knee pain Right shoulder injury Post laminectomy syndrome DDD (degenerative disc disease), lumbar Surgical History History of cholecystectomy History of hysterectomy History of knee replacement History of surgery on left wrist History of left hip replacement x2 Family History Other Family history of diabetes mellitus type II Family hx-stroke Social History Smoking Status: Never smoker second hand exposure: No alcohol intake: never counseling provided: none substance use type: denies use current occupational status: unemployed Travel in the last 8 weeks?: None household members: spouse and family housing: house current occupation: [employer] current occupational exposures/hazards: No caffeine: Yes do you feel safe at home: Yes victim of physical abuse: No victim of emotional abuse: No victim of sexual abuse: No would you like helpful sources: No Other Medical History Have you received the Flu Vaccine for this season: No Have you received the Pneumonia Vaccine: No Review of Systems Review of Systems Review of systems:: pertinent systems reviewed and negative unless documented below Review of systems (narrative): Review of Systems: General: No recent weight changes, no fever, no sleep disturbances Respiratory: No cough, no shortness of air, no recurring pulmonary infections Cardiovascular/peripheral vascular: No chest pain, no palpitations, no edema, no shortness of breath Gastrointestinal: No new onset incontinence, normal bowel movements reported Genitourinary: No new onset incontinence Musculoskeletal: Chronic back pain, joint pain Psychiatric: [Normal mood/affect] Neurological: [Denies weakness in extremities], [denies balance issues] Meds Home Medications and Allergies Home Medications ?Medication ?Instructions ?Recorded ?Confirmed ?Type ascorbic acid (vitamin C) 500 mg 500 mg PO DAILY Supplement 07/16/17 12/31/24 History tablet cholecalciferol (vitamin D3) 10 400 unit PO DAILY Supplement 07/16/17 12/31/24 History mcg (400 unit) capsule multivitamin 1 tab PO DAILY suppleemnt 06/20/22 12/31/24 History atogepant 60 mg tablet (Qulipta) 60 mg PO DAILY #30 tabs 12/05/23 12/31/24 Rx spironolactone 25 mg tablet 25 mg PO DAILY PRN GERD #15 tabs 12/05/23 12/31/24 Rx cyanocobalamin (vitamin B-12) 100 mcg IM QMONTH 12/19/23 12/31/24 History 1,000 mcg/mL injection solution syringe with needle 3 mL 25 gauge #1 ea 12/19/23 12/31/24 History x 1 (BD Luer-Filomena Syringe) lorazepam 1 mg tablet 1 mg PO Q6H PRN anxiety #120 tabs 01/22/24 12/31/24 Rx duloxetine 60 mg capsule,delayed See Rx Instructions .Route 03/18/24 12/31/24 Rx release .COMPLEX #60 caps furosemide 40 mg tablet 40 mg PO DAILY PRN edema #30 tabs 03/18/24 12/31/24 Rx rimegepant 75 mg disintegrating 75 mg PO DAILY PRN Migraine 04/05/24 12/31/24 History tablet (Nurtec ODT) Headache mupirocin 2 % topical ointment 1 applic topical BID cellulitis 3 05/25/24 12/31/24 Rx weeks #22 grams carvedilol 3.125 mg tablet See Rx Instructions .Route 07/21/24 12/31/24 Rx .COMPLEX #180 tabs ibuprofen 600 mg tablet 600 mg PO TID PRN pain 30 days #90 08/05/24 12/31/24 Rx tabs potassium chloride 20 mEq 1 meq (0.05 x 20 mEq) PO DAILY 08/24/24 12/31/24 Rx tablet,extended release(part/cryst) supplemtn #90 tabs gabapentin 100 mg capsule 100 mg PO TID PRN nerve pain 10 08/26/24 12/31/24 Rx days #30 caps tramadol 50 mg tablet 50 mg PO HS #30 tabs 10/08/24 12/31/24 Rx lamotrigine 200 mg tablet See Rx Instructions .Route 11/05/24 12/31/24 Rx .COMPLEX #60 tabs promethazine 25 mg tablet 25 mg PO DIRECTED PRN Nausea 11/08/24 12/31/24 Rx #30 tabs zolpidem 10 mg tablet 10 mg PO HS PRN Sleep #30 tabs 12/07/24 12/31/24 Rx semaglutide 1 mg/dose (4 mg/3 mL) 1 mg (0.75 mL) SQ WEEKLY #3 mL 12/10/24 12/31/24 Rx subcutaneous pen injector (Ozempic) alendronate 70 mg tablet 70 mg PO WEEKLY #12 tabs 12/14/24 12/31/24 Rx New Prescriptions to Start Prescriptions: Allergies Allergy/AdvReac Type Severity Reaction Status Date / Time cephalexin (From [facility]) Allergy Severe SERUM Verified 12/14/24 09:16 SICKNESS ; JOINTS LOCKED morphine Allergy Intermediate I-HIVES Verified 12/14/24 09:16 Penicillins Allergy Intermediate I-HIVES Verified 12/14/24 09:16 adhesive tape AdvReac Mild Unknown Verified 12/14/24 09:16 allergy reaction Exam Data for Last 24 hours Vital signs and Labs for Last 24 Hours: Temp Pulse Resp BP Pulse Ox O2 Del Method 98.3 F 60 18 149/80 H 92 L Room Air 12/31/24 14:37 12/31/24 15:01 12/31/24 15:01 12/31/24 15:01 12/31/24 15:01 12/31/24 15:01 I & O for Last 24 hours: Intake & Output 12/28/24 12/29/24 12/30/24 12/31/24 23:59 23:59 23:59 23:59 Weight 200 lb Constitutional Constitutional: no acute distress *Routine HEENT Exam Head: Present normocephalic and atraumatic Eye: Present PERRL ENT: Present mucous membranes moist *Routine Neck Exam Neck: Present supple *Routine Respiratory Exam Respiratory: Present CTA bilaterally *Routine Cardiovascular Exam Cardiovascular: Present RRR *Routine Abdominal Exam Abdominal: Present soft *Routine Rectal Exam Rectal:: deferred *Routine Genitalia Exam Genitalia:: deferred Routine Back/Spine/Pelvis Exam Back/Spine: Present pain with flexion *Routine Skin Exam Skin: Present intact, dry and warm *Routine Neurological Exam Neurological: Present alert and oriented X3 Routine Psychiatric Exam Psychiatric: Present normal affect and normal thought process Assessment and Plan *Assessment and plan (1) DDD (degenerative disc disease), lumbar: Status: Chronic Category: Medical Code(s): M51.369 - Other intervertebral disc degeneration, lumbar region without mention of lumbar back pain or lower extremity pain (2) Post laminectomy syndrome: Status: Chronic Category: Medical Code(s): M96.1 - Postlaminectomy syndrome, not elsewhere classified Plan Patient has been instructed to contact the clinic with any concerns before the next appointment. Dr. Ortiz has reviewed this note and agrees with this plan of care. This note was dictated using voice recognition software and make contain errors or omissions. All injections are used with Lidocaine, Bupivacaine and dexamethasone. Occasionally urine drug screen is needed to verify patient's compliance with our office pain contract. This is ordered based off specific treatments related to chronic pain with the potential to abuse certain medications.
--- NOTE | 2024-12-31 15:13 | EXP.PAIN.PRO ---
Procedure Date: 12/31/24 Time: 15:13 Anesthesiologist:: Marisa Villagomez APRN Complications:: None Pre-procedure Diagnosis:: Degenerative disc disease of lumbar spine with lumbar radiculopathy symptoms, generalized joint pain, chronic pain syndrome, lumbar postlaminectomy Post-procedure Diagnosis:: Same Indications for Procedure:: Patient is a pleasant 64-year-old female who presents today for intrathecal refill and reprogram. She rates her pain today a 7 out of 10. She does state that she had a fall about 2 weeks ago and pulled something in her groin. Patient does state that she did end up coming into see her PCP and that they did do imaging and there was nothing fractured. Patient states she has been still having the same pain however it has gotten a little bit better. Patient is currently managed with Dilaudid 20 mg/mL with a daily dose of 7.732 mg/day and bupivacaine 20 mg/mL with a daily dose of 7.732 mg/day. She denies any side effects from this medication. Patient is also managed with tramadol 50 mg at bedtime and has been recently given a 3-month supply. Her Daniel has been reviewed and is appropriate. Physical Exam: General: Alert and oriented x3, no acute distress, pleasant and cooperative Lungs: Respirations even and unlabored, symmetrical chest expansion Eyes: PERRL Musculoskeletal: Flexion and extension of lumbar [spine] somewhat guarded secondary to pain, [antalgic gait noted] Neurological: Speech clear, no gross sensory deficit Procedure Details:: Informed consent was obtained and the risk and benefits of the procedure were explained to the patient. The patient had noninvasive monitoring placed including noninvasive blood pressure cuff and pulse oximeter. Patient's pump was interrogated. The area over the pump was cleansed with chlorhexidine as a cleansing solution. In sterile fashion the pump was accessed with a 22-gauge needle. Approximately 3.1 mls of the pump solution was removed and discarded appropriately. The pump was then refilled with 20 mL's of Dilaudid 25 mg/mL and bupivacaine 20 mg/mL. The needle was withdrawn and a bandage was placed over the puncture site. The infusion rate was reprogrammed and programmed for Dilaudid 7.722 mg/day and bupivacaine 6.178 mg/day. The patient tolerated well with no complication. Plan and Disposition:: Patient tolerated the procedure well with no complications and was discharged neurologically intact. I did discuss with the patient that if she ends up finding what rheumatology clinic is covered by her insurance that she can call our office and I will send a referral. Patient agrees with this plan of care. Patient will return to clinic on or before their next intrathecal refill date. We will see the patient back in the clinic at the next intrathecal refill. Patient has been instructed to contact the clinic with any concerns before the next appointment. Dr. Ortiz has reviewed this note and agrees with this plan of care. This note was dictated using voice recognition software and make contain errors or omissions. -- It Is medically necessary for this patient to continue to have their intrathecal pump refilled at regular intervals. This patient had an intrathecal pain pump implanted after meeting criteria of chronic intractable pain for greater than 3 months and failing conservative treatments. Patient has committed and been compliant to the treatment plan and all planned follow up care. Since implantation of the intrathecal pain pump, the patient has had decreased pain and been more functional. Oral medications have been reduced including intake of oral opioids. Patient continues to do well with intrathecal therapy with decrease in pain symptoms and increase in functional status. Stopping intrathecal medications can lead to life threatening withdrawal, seizures, cardiac arrest, severe pain, and possible . Pumps that are not refilled at regular intervals can be damages and cause and need for replacement. We continually titrate dose and concentration to optimize pain relief and function. We are limited in concentration for certain drugs to safely deliver medications through the pump and stay within the recommendations from the Polyanalgesic Consensus Committee Guidelines. Depending on dose and concentration these pumps may need to be refilled sooner than 3 months as we titrate. A UDS is needed to verify patient's compliance with our office pain contract. This is ordered based off specific treatments related to chronic pain with the potential to abuse certain medications.
[2024-12-31 15:14] VITALS: BP 161/66; PULSE 70; RESP 18; O2SAT 98
== END 2024-12-31 15:14 | disposition home or self-care (01) ==
PROVIDERS: PCP Internal Medicine; Visit Provider Nurse Practitioner Family
DX: Z45.1 Encounter for adjustment and management of infusion pump (principal); G89.4 Chronic pain syndrome; M51.16 Intervertebral disc disorders with radiculopathy, lumbar region; M96.1 Postlaminectomy syndrome, not elsewhere classified; E11.9 Type 2 diabetes mellitus without complications; E78.5 Hyperlipidemia, unspecified; K21.9 Gastro-esophageal reflux disease without esophagitis; I11.0 Hypertensive heart disease with heart failure; I50.32 Chronic diastolic (congestive) heart failure; I25.10 Atherosclerotic heart disease of native coronary artery without angina pectoris; Z79.899 Other long term (current) drug therapy; Z79.85 Long-term (current) use of injectable non-insulin antidiabetic drugs; Z88.1 Allergy status to other antibiotic agents; Z88.0 Allergy status to penicillin; Z88.8 Allergy status to other drugs, medicaments and biological substances
CPT/HCPCS: 62370

== ENCOUNTER 2025-01-03 14:42 | Outpatient (CLI) | payer BC, SELFPAY ==
--- OUTSIDE RECORDS SUMMARY | 2024-11-10 07:54 | XMS_ITS | Encounter Summary ---
Author Organization [facility] Address [address] [place] [address] Care Team Providers Care Family Support Specialist Name Role Phone Omar De La Torre MD Primary Care Provider [phone] Reason for Referral * Consultation (Routine) - Closed Specialty Diagnoses / Procedures Referred By Collins arenas Referred To Contact Plastic Surgery Diagnoses Scar contracture João Reyes MD [address] [address] Phone: tel: fax: Referral ID Status Reason Start Date Expiration Date V isits Requested Visits Authorized [id number] Closed Specialty Services Required 11/10/2024 05/12/2026 1 1 Scheduling Instructions Please have patient follow up with Dr. Reyes on 11/25 Reason for Visit * Auth/Cert (Routine) Specialty Diagnoses / Procedures Referred By Collins arenas Referred To Contact Diagnoses Scar contracture Scar contracture [L90.5] Procedures NE WND PREP,PED, FACE/NCK/HND/FT/GEN ADD 100 CM NE ADJ TISS XFER HEAD,FAC,HAND <10 SQCM NE ADJ TISS XFER HEAD,FAC,HAND 10.1-30 SQCM Excision of anterior neck scar with z plasty João Reyes MD [address] [place] [phone] Phone: tel: fax: [facility] [address] [place] [address] Phone: tel: Referral ID Status Reason Start Date Expiration Date Visits Re quested Visits Authorized [id number] 1 1 Encounter Details Date Type Department Care Team (Late st Contact Info) Description 11/10/2024 7:54 AM EDT - 11/10/2024 12:28 PM EDT Hospital Encounter [facility] [address] [place] [address] João Reyes MD [address] [id number] Scar contracture (Primary Dx) Discharge Disposition: Home or Self Care Social History Tobacco Use Types Packs/Day Years Used Date Smoking Tobacco: Never Smokeless Tobacco: Never Alcohol Use Standard Drinks/Week Comments Never 0 (1 standard drink = 0.6 oz pur e alcohol) PHQ-2 Answer Date Recorded Patient Health Questionnaire-2 Score 0 12/02/2023 Comments No Sex and Gender Information Value Date Recorded Sex Assigned at Not on file Legal Sex Female 10:08 PM EDT Gender Identity Not on file Sexual Orientation Not on file documented as of this encounter Last Filed Vital Signs Vital Sign Reading Time Taken Comments Blood Pressure 129/76 11/10/2024 11:46 AM EDT Pulse 75 11/10/2024 11:55 AM EDT Temperature 36.5 C (97.7 F) 11/10/2024 11:45 AM EDT Respiratory Rate 14 11/10/2024 11:5 5 AM EDT Oxygen Saturation 94% 11/10/2024 11: 55 AM EDT Inhaled Oxygen Concentration - - Weight 97.4 kg (214 lb 11.7 oz) 11/10/2024 8:15 AM EDT Height 170.2 cm (5' 7 ) 11/10/2024 8:15 AM EDT Body Mass Index 33.63 11/10/2024 8:15 AM EDT documented in this encounter Functional Status * Are you deaf or do you have serious difficulty hearing? Answer Date of Assessment Author No 02/05/2021 1:25 PM EDT Anette Hauser RN * Are you blind or do you have serious difficulty seeing, even when wearing glasses? Answer Date of Assessment Author No 02/05/2021 1:25 PM EDT Anette Hauser RN * Do you have serious difficulty walking or climbing stairs? Answer Date of Assessment Author Yes 02/05/2021 1:25 PM EDT Anette Hauser RN * Do you have serious difficulty dressing or bathing? Answer Date of Assessment Author Yes 02/05/2021 1:25 PM EDT Anette Hauser RN * Because of a physical, mental, or emotional condition, do you have serious difficulty doing errandsalone such as visiting the doctor? Answer Date of Assessment Author Yes 02/05/2021 1:25 PM EDT Anette Hauser RN * Calculated C-SSRS Risk Score (Lifetime/Recent) Answer Date of Assessment Author No Risk Indicated 11/10/2024 8:31 AM EDT Asiya Hairston RN * Question Answer Date of Assessment Author 1. Wish to be (Past 1 Month) No 11/10/2024 8:31 AM EDT Asiya Hairston RN 2. Non-Specific Active Suici stefan Thoughts (Past 1 Month) No 11/10/2024 8:31 AM KALPANAT Inna Hairston RN 6. Suicidal Behavior (Lifetime) No 8:31 AM KALPANAT Asiya Hairston RN documented as of this encounter Mental Status * Because of a physical, mental, or emotional condition, do you have serious difficulty concentrating, remembering, or making decisions? (5 years old or older) Answer Entry Date Author No 02/05/2021 1:25 PM EDT Anette Hauser RN documented in this encounter Discharge Instructions * Discharge Instructions* Lucie Martinez RN - 11/10/2024 11:21 AM EDT Images from the original note were not included. Post-Anesthesia and Postoperative Instructions () In order to have a fast and comfortable recovery at home, please follow these instructions. A responsible adult must be present for you to be discharged. Do not drive, drink alcohol or make important decisions for 24 hours after surgery. You may feel like resting more than normal after surgery. Start slowly and be more active each day. Start slowly with liquids like 7-up, tea, apple juice or broth. Eat more as your stomach allows. Ifyou feel sick to your stomach, go back to drinking liquids. You may feel some discomfort after surgery. Take the medicine as directed by your caregiver. If your medicine makes you drowsy, do not drink alcohol, drive or operate heavy equipment for at least 24 hours after use. If you are taking antibiotics, take them until they are all gone even if you feel well. Cover your wound or bandage when showering, unless your doctor tells you differently. A small amount of drainage on your bandage is normal. Do not remove your bandage unless your doctortells you to. Please keep track of information about the medicines you take. Follow these tips to manage your medicines. Keep a list of all your medicines. Update the list when you start or stop taking a medicine. Write down changes in how you should take them. Carry your medicine list with you at all times. It will be needed if you have a health emergency . Give the list to your family doctor. Take the list to all your doctor visits. Call your doctor if you have any of the following Temperature higher than 101.5??F Chest pain or difficulty breathing Stomach sickness or throwing up that does not go away You cannot urinate by bedtime Pain is not helped by your medicine. Bandage becomes soaked with blood - Don't remove the bandage, reinforce only Swelling, redness, pain or pus from incision Questions or concerns about your surgery. In the event of an emergency, please go to the closest Emergency Room or call the Emergency Department at [phone]. Smoking and its health risks Smoking is the most preventable cause of illness and in the [place]. Cigarettes are filled with poison that goes into the lungs as you inhale. About 440,000 people every year from illnesses caused by smoking. People who smoke earlier than those who do not smoke. Heart and blood vessel disease, lung disease and ulcers are just some of the health problems that may be caused by smoking. Smoking also slows bone and wound healing and may slow your recovery from surgery. For help quitting smoking, call the National [employer] [place]'s Quitline toll free at or ask your doctor for help. Weight Management Weighing too much is not good for your health. Being overweight increases your risk of health conditions such as heart problems, high blood pressure, type 2 diabetes, and certain types of cancer. Being overweight can also increase your risk for osteoarthritis (kd-hbg-uo-zlu-HDHH-ock) (joint disease), sleep apnea (abnormal breathing at night) or other respiratory (breathing) problems. Being overweight may also cause a person to feel sad or be treated differently by others. The best way to lose weight is to eat fewer calories and get regular exercise. Eating more caloriesthan you need will cause you to gain weight. Try to cut down your calories by 500 calories per day.For example, cut down on one soda (about 150 calories), a small bag of regular potato chips (about 150 calories) and one chocolate bar (about 250 calories). For most people, this change will result in a slow weight loss of about one pound a week. Exercise (for example, walk, swim, or bicycle) for at least 30 minutes on most days of the week. You will be more likely to keep weight off if you make lifelong lifestyle changes. Aim for a slow, steady weight loss. Losing even a small amount of weight can lower your risk of health problems. Ask your dietitian, director facilities maintenance or doctor about a weight loss goal that is right for you. Safe Use of Controlled Substances Taking a medicine may be an important part of your treatment. Your body should heal faster if you take medicine safely. Some medicines are called Controlled Substances. This means their use is controlled by law. Some of these can harm you if you do not take them safely. What can I do to make sure I take my medicine safely? Follow the instructions we give you for how to take your medicine. We will give you an instruction sheet for each of your medicines. Ask your doctor or nurse if you do not get these instructions. Some medicines make you sleepy or cloud your thinking. Do not drive, use heavy machines or do dangerous activities while taking these medicines. Read the label on the bottle each time you take your medicine. Do not take your medicine with alcohol or other sedatives. Do not take medicine after the expiration date. It is against the law to sell your medicine or share it with others. Do not drive while using your medicine. How should I store my medicine? Store it in a safe place. This will keep others from taking your medicine and help you keep track of it. Store controlled substances in a cabinet or container that you can lock. Keep it in a place that is cool, dry and out of direct sunlight. Do not leave it in the car. Do not store in a refrigerator or freezer, unless your doctor tells you to. Call your doctor right away if your medicine is lost or stolen. How should I dispose of medicine that is or no longer needed? You may have medicine left over that you do not need or should not take. You must dispose of it theright way to protect yourself and others. You can ask your local pharmacist how to dispose of them.You can also visit these Web sites to learn more about disposal of controlled substances: Drug Enforcement Agency (JOSEPH): http://www.deadiversion.[employer].gov/drug_disposal/takeback/index.htm National Association of Drug Diversion Investigators (NADDI): http://rxdrugdropbox.org/ [place] Office of Drug Control Policy: http://odcp.[place].gov/Prescription+Drug+Drop+Box+Sites.htm Are there concerns about or ? Before you take a medicine, tell your doctor if you are or plan to get . This could harm your baby. Tell your doctor if you breastfeed. Medicine in breast milk may be bad for your child. What if I have low or impaired vision? If you have vision problems, take extra care with your medicine. Wear your glasses when you take your medicine. Do not take medicine in the dark. What are the signs of overdose? Some controlled substances may cause breathing problems if you take more than your doctor recommends. This may lead to serious health problems or even . You and your caregivers should watch for the following signs of overdose. Slurred speech, confusion or stumbling Feeling dizzy or faint Acting drowsy or groggy Unusual snoring, gasping or snorting during sleep Hard to wake up or keep awake What should I or my caregiver do if I overdose? You or your caregiver should call 911 if you have any of these problems: Cannot wake up Cannot talk after waking up Shortness of breath, slow or light breathing, or breathing has stopped Heartbeat is slow or stopped Gurgling noise comes from the mouth or throat Body is limp or seems lifeless Face is pale or clammy Fingernails or lips look blue or purple What is a ELAINE report? ELAINE is a system that tracks prescriptions of controlled substances in [place]. The ELAINE report tells your doctor if you have been prescribed controlled substances in the past. Doctors must get a ELAINE report before prescribing controlled substances. What can I do if the information in my ELAINE report is wrong? You or your doctor may contact the dispenser who reported the information to [facility]. If the dispenser agrees that the information should be changed, he or she can fix the ELAINE report. However, the dispenser may certify that the report is correct. If that is the case, you or your doctor may then call the [place] Drug Enforcement and Professional Practices Branch at .This will start an investigation of the error. Tips for Quitting Tobacco ([place]) Tobacco and secondhand smoke can cause health problems such as cancer or heart and lung disease. They also make it harder for you to get better after an illness or surgery. Tobacco and tobacco smoke have more than 4000 chemicals. They can hurt you and those near you. Know your ???triggers?? Triggers are danger situations where you have a strong urge to use tobacco. If you know them, you can deal with them. Avoid places where you will see people use tobacco. This is very important when you first start to quit. Plus, secondhand smoke is bad for you. Change habits that give you the urge to use tobacco. If you smoked in the car, drink water instead.If you used tobacco after meals, try taking walks. Stress, anger or sadness can cause you to crave tobacco. Fight the urge by thinking of things that make you relaxed or happy - like your favorite song. The urge will often pass in a few minutes. How to cope with nicotine withdrawal Nicotine in tobacco is very addictive. Nicotine withdrawal can put you in a bad mood and cause you to crave tobacco. This can last for weeks after you quit. There are medicines that can ease these feelings. We can help our patients fight the urge to use tobacco. While you are here, your doctor can get you medicines, nicotine patches or gum. Talk to your doctor about which one is best for you. Let us help you quit You do not have to spend a lot of money to get help. You may even find help for free. Support groups: Your local health department may offer these. [place]'s resources to help you quit: http://www.[facility]/TobaccoFree/ - Click on the Quit Here! tab. A telephone quit line: (3-447-TKDKABM) Web sites: www.smokefree.gov, www.becomeanex.[employer], www.[employer] Tobacco Treatment Counselors: Call 716-589-9622. Medicare and Medicaid pay for this. employees, retirees, and their spouses or sponsored dependents can get free nicotine replacementtherapy and coaching. Visit www.[facility]/HR/Wellness/consults.html. [facility]: Free pamphlets on quitting tobacco, secondhand smoke and other health topics. Tell your doctor or nurse if you are want to know more. We can help! You can quit! It is hard to quit tobacco. Most people try to quit a few times before they stay quit for good. It will be easier to quit if you can relax and stay calm in times of stress. Quitting tobacco saves youmoney and your health! documented in this encounter Medications at Time of Discharge ascorbic acid (Vitamin C) 500 MG tablet Take 2 tablets by mouth daily. B-D 3CC LUER-NGOZI SYR 25GX1 25G X 1 3 ML misc USE TO inject B12 4 carvedilol (Coreg) 3.125 MG tablet Take 1 tablet (3.125 mg total) by mouth 2 (two) times a day with meals. 60 tablet 11 1 cholecalciferol (Vitamin D-3) 10 MCG (400 UNIT) tablet Take 1 tablet by mouth daily. ciprofloxacin (Ciloxan) 0.3 % ophthalmic solution instill 1 DROP into affected eye(s) FOUR TIMES DAILY UNTIL CLEAR ciprofloxacin (Cipro) 250 MG tablet TAKE ONE TABLET BY MOUTH TWICE DAILY FOR 3 DAYS -- FINISH ALL MEDICINE -- clindamycin (Cleocin) 300 MG capsule TAKE ONE CAPSULE BY MOUTH THREE TIMES DAILY FOR 10 DAYS -- FINISH ALL MEDICINE -- cyanocobalamin (Vitamin B-12) 1000 MCG/ML injection every 30 (thirty) days. 4 DULoxetine (Cymbalta) [address] capsule Take 1 capsule by mouth 2 times a day. Do not crush or chew. ferrous sulfate 324 (65 Fe) MG EC tablet Take 1 tablet (324 mg total) by mouth 1 (one) time each day. Do not crush, chew, or split. 30 tablet 1 1 furosemide (Lasix) 40 MG tablet TAKE ONE TABLET BY MOUTH EVERY MORNING NEEDED FOR EDEMA 3 gabapentin (Neurontin) 300 MG capsule Take 1 capsule (300 mg total) by mouth 3 (three) times a day. 30 capsule 1 HYDROcodone-acetami nophen ([place]) 7.5-325 MG tablet TAKE ONE TABLET BY MOUTH EVERY 6 HOURS NEEDED MAY CAUSE DROWSINESS ibandronate (Boniva) 150 MG tablet TAKE ONE TABLET BY MOUTH ONCE a MONTH (take ON an EMPTY stomach, 1 hour prior TO eating drinking) take with water 3 ibuprofen 600 MG tablet TAKE ONE TABLET BY MOUTH EVERY 6 HOURS NEEDED --TAKE WITH FOOD-- ibuprofen 800 MG tablet TAKE ONE TABLET BY MOUTH EVERY 6 HOURS NEEDED FOR mild pain --TAKE WITH FOOD-- lamoTRIgine (LaMICtal) 200 MG tablet Take 1 tablet by mouth 2 times a day. LORazepam (Ativan) 1 MG tablet Take 1 tablet by mouth 4 times a day as needed. Multiple Vitamin (Multi-Vitamin) tablet Take 1 tablet by mouth 1 (one) time each day. Multiple Vitamins-Minerals (EQL Century Mature Women 50+) tablet Take 1 tablet by mouth 1 (one) time each day. Na Sulfate-K Sulfate-Mg Sulf 17.5-3.13-1.6 GM/177ML solution dilute; drink full AMOUNT early evening BEFORE procedure AND NEXT morning AT least 2 hours BEFORE procedure; FOLLOWING with 960 ML of water. naloxone (Narcan) 4 mg/0.1 mL nasal spray --do not prime-- SPRAY 1 SPRAY in 1 nostril DIRECTED NEEDED FOR oversedation nitrofurantoin, macrocrystal-monohy drate, (Macrobid) 100 MG capsule TAKE ONE CAPSULE BY MOUTH TWICE DAILY FOR 5 DAYS -- FINISH ALL MEDICINE -- --TAKE WITH A MEAL/FOOD-- Nurtec 75 MG tablet dispersible Dissolve 1 tablet on the tongue nightly. prn ondansetron (Zofran) 4 MG tablet ondansetron ODT (Zofran-ODT) 4 MG disintegrating tablet Take 1 tablet (4 mg) by mouth every 8 hours as needed. OXcarbazepine (Trileptal) 300 MG tablet Take 1 tablet by mouth 2 times a day. potassium chloride CR (Klor-Con M20) 20 MEQ ER tablet TAKE ONE TABLET BY MOUTH EVERY DAY with furosemide promethazine (Phenergan) 12.5 MG tabletIndications:R ight wrist pain TAKE ONE TABLET BY MOUTH EVERY 6 HOURS NEEDED FOR NAUSEA OR vomiting MAY CAUSE DROWSINESS 8 tablet 2 Qulipta 60 MG tablet Take 60 mg by mouth daily. 4 Semaglutide (OZEMPIC, 0.25 OR 0.5 MG/DOSE, SC) Inject 0.5 mg under the skin 1 (one) time per week. sulfamethoxazole-tr imethoprim (Bactrim DS) 800-160 MG tablet TAKE ONE TABLET BY MOUTH TWICE DAILY -- FINISH ALL MEDICINE -- tiZANidine (Zanaflex) 4 MG tablet TAKE ONE TABLET BY MOUTH TWICE DAILY MAY CAUSE DROWSINESS traMADol (Ultram) 50 MG tablet Take 1 tablet by mouth every 6 hours as needed for severe pain. 5 tablet 5 triazolam (Halcion) 0.25 MG tablet TAKE TWO TABLETS BY MOUTH 1 HOUR PRIOR TO DENTAL APPOINTMENT. DO NOT DRIVE WHILE TAKING MAY CAUSE DROWSINESS Ubrelvy 100 MG tablet Take 1 tablet (100 mg) by mouth 1 (one) time as needed. 4 UNABLE TO FIND Med Name: Pain pump, with hydromorphone/bup ivacaine zolpidem (Ambien) 10 MG tablet Take by mouth at night if needed for sleep. documented as of this encounter Miscellaneous Notes * Lucie Carolina RN - 11/10/2024 11:21 AM EDT Images from the original note were not included. [address] Preventing a Surgical Site Infection A risk of any surgery is an infection at the surgical site. The surgical site is a cut the surgeon makes in the skin to do the surgery. Surgical site infections can range in type. It may be a minor skin infection. Or it may be severe and include tissue under the skin or other organs. In some cases,a severe infection can cause . The information below tells you: ?? About surgical site infections. ?? What hospitals do to prevent them. ?? How they?re treated if they do occur. ?? What you can do to prevent an infection. Hand washing reduces the risk of infection. What causes a surgical site infection? Germs are everywhere. They?re on your skin, in the air, and on things you touch. Many germs are good. Some are harmful. Surgical site infections occur when harmful germs enter your body through the incision in your skin. Some infections are caused by germs that are in the air or on objects. But most are caused by germs found on and in your own body. Who is at risk for a surgical site infection? Anyone can have a surgical site infection. Your risk is higher if you: ?? Are an older adult. ?? Have a weak immune system. ?? Have other health conditions such as diabetes. ?? Take certain medicines, such as steroids. ?? Are a smoker. ?? Have certain types of surgery, such as abdominal surgery. ?? Have poor nutrition. ?? Are very overweight. ?? Have a surgery that lasts longer than 2 hours. What are the symptoms of a surgical site infection? An infection often shows up as skin redness, pain, and swelling around the incision that gets worse. Later, a cloudy or greenish-yellow fluid may come from the incision. The fluid may smell bad. The incision may pull apart or open up. You are likely to have a fever and may feel very ill. Symptoms can appear at any time. They may happen from hours to weeks after surgery. Implants such as an artificial knee or hip can become infected at any time after the surgery. How is a surgical site infection treated? ?? A surgical site infection is treated with antibiotics. The type of medicine you get will depend on what may be causing the infection. Most serious wound infections need wound care. In some cases, surgery may be needed on the infected wound. ?? An infected skin wound may be reopened and cleaned. A deep wound may need to be packed with gauze. The gauze is changed often until the wound starts to heal from the inside out. Your health care provider will decide the best way to treat your infection. ?? If an infection occurs where an implant is placed, the implant may be removed. ?? If you have an infection deeper in your body, you may need surgery to treat it. What hospitals do to prevent surgical site infections Many hospitals take these steps to help prevent surgical site infections: ?? Handwashing. Before the surgery, your surgeon and all surgery staff scrub their hands and arms with an antiseptic soap. ?? Clean skin. The site where your incision is made is carefully cleaned with an antiseptic solution. ?? Sterile clothing and drapes. The surgical team wears medical uniforms. These are known as scrub suits. They wear long-sleeved surgical gowns, masks, caps, shoe covers, and sterile gloves. Your body is fully covered with a large sterile sheet (sterile drape). There is an opening in the sheet where the incision is made. ?? Clean air. Operating rooms have special air filters. They use positive pressure airflow to prevent unfiltered air from entering the room. ?? Careful use of antibiotics. Antibiotics are given no more than 60 minutes before the incision ismade. They are generally stopped within 24 hours after surgery. This depends on the type of surgery. This helps kill germs but prevents problems that can occur when antibiotics are taken longer. ?? Controlled blood sugar levels. Your blood sugar level may rise. This can be because of the stress of the surgery. Your blood sugar level is watched closely to make sure it stays within a normal range. High blood sugar delays wound healing. This increases the risk of infection. ?? Controlled body temperature. A hgfov-ogxr-bnoqow temperature during or after surgery prevents oxygen from reaching the wound. This makes it harder for your body to fight infection. Hospitals may warm I.V. fluids, and provide warm-air blankets. Your temperature is watched throughout the surgery. ?? Safe hair removal. Any hair that must be removed is clipped right before the incision, not shaved with a razor. This prevents tiny nicks and cuts where germs can enter. ?? Wound care. After surgery, a closed wound is covered with a sterile dressing for 1 to 2 days. Open wounds are packed with sterile gauze and covered with a sterile dressing. What you can do to prevent a surgical site infection ?? Ask questions. Learn what your hospital is doing to prevent infection. ?? If instructed, shower or bathe with plain soap the night before and the day of your surgery. Follow all instructions you're given. You may be asked to use a special cleanser that you don?t rinse off. ?? If you smoke, stop as long as possible before and after the surgery. Ask your provider about ways to quit. ?? Take antibiotics only when your provider tells you to. Using antibiotics when they?re not neededcan create germs that are harder to kill. Finish the entire prescription of your antibiotics even if you feel better. ?? Ask health care workers to clean their hands with plain soap and water or with an alcohol-based hand predatory game hunter before and after caring for you. Don?t be afraid to remind them. ?? After surgery, eat healthy foods. Care for your incision as directed by your health care team. When to contact your doctor Contact your provider or seek medical care right away if: ?? The pain at the surgical site gets worse. ?? A red streak, worse redness, or puffiness appears near the incision. ?? Yellowish, cloudy, or bad-smelling fluid leaks from the incision. ?? Your stitches dissolve before the wound heals. ?? You have a fever of 100.4?? F ( 38??C ) or higher, or as advised by your provider. ?? You have a tired feeling that doesn?t go away. Last Reviewed Date: 2024 00:00:00 ?? [id number] [employer]. All rights reserved. This information is not intended as a substitute for professional medical care. Always follow your healthcare professional's instructions. * Op Note - João Reyes MD - 11/10/2024 10:56 AM EDT Operative Note Date: 11/10/24 Location: [facility] OR Name: Paige Hill Brent, : 1960, Diagnoses: Pre-op Diagnosis Right neck scar contracture Post-op Diagnosis Right neck scar contracture Procedure(s): Excision of right neck scar contracture and reconstruction with adjacent tissue transfer consistingof double Z-plasty. Total flap area measuring 4 cm x 2.5 cm for a total of 10 sq cm Attending Surgeon(s): * João Reyes - Primary Floating Operator(s): * Humberto Muñoz MD - Resident - Assisting Anesthesia: General ASA: ASA status not filed in the log. Blood Administration: Blood Product Administration History Date Volume Status Transfuse RBC 02/13/2021 650 mL Completed 02/13/21721 Estimated Blood Loss: Minimal Indications: Paige Kennedy is an 64 y.o. female who is having surgery for Scar contracture. The patient continued to experience pain and pulling secondary to the scar contracture on her right anterior neck. Treatment options including non-operative intervention were discussed. Risks, benefits and alternatives to proceeding with surgery versus non-surgical interventions were discussedwith the patient and/or family. Risks include but are not limited to: infection, bleeding, hematoma, wound breakdown, delayed healing, asymmetry, undesired cosmetic outcome, the need for reoperation,skin contour irregularities, scarring, the potential for blood transfusion, lymphedema, blood clots, postoperative drainage, revision surgery as well as general surgical risks such as blood clot, heart attack, stroke and among others. The patient had ample opportunity to ask questions and verbalized understanding of the treatment plan. Expected postoperative recovery and restrictions were also discussed. No guarantees or warranties were offered or implied. A consent was signed and placed in the chart. Narrative: The patient was identified in the preoperative holding area by name, date of , procedure site and type. Preoperative consent was obtained after discussion of the risks and benefits of operative intervention. Following this the patient was taken into the operating room and left in the supine position on the stretcher. At this point, sedation was administered. The airway was secured. Following this, the surgical site was prepped and draped in a sterile fashion. A preoperative time-out was conducted with the patient's name, date of , procedure site and type were confirmed. Atthis point the area on the surgical site was anesthetized with local anesthesia consisting of 10 ccof a 50 50 mixture of 1% lidocaine 1 100,000 with epinephrine and 0.5% Naropin. Following this, the scar contracture was then marked out and and excised with a 15 blade scalpel. The scar contracture was released with blunt dissection with tenotomy scissors. The cutaneous scar was then passed off the surgical field. At this time we also designed a double Z-plasty to lengthen the scar and to help reduce the risk of recurrence. We then incised along the limbs of the double Z-plasty with a 15 blade scalpel. Our dissection was carried deep with tenotomy scissors. We then widely undermined the various components of our flap. The total flap area measured 4 cm x 2.5 cm for a total 10 sq cm. We then transposed the interdigitating flaps and proceeded with our closure. These were inset in multiple layers with 4-0 Monocryl sutures in interrupted fashion. A layer of Dermabond was then applied over the incision and sutures. Upon completion, a sterile dressing was placed over the incision. The patient was then awoken by the anesthesia team and transported to PACU where they recovered without incident. All sponge, needle,lap counts were correct at the end the case. Complications: None; patient tolerated the procedure well. Submitted by: João Reyes MD - 11/10/2024 * H&P - Humberto Muñoz MD - 11/10/2024 10:10 AM EDT Images from the original note were not included. Chief Concern & History Of Present Illness Paige Kennedy is a 64 y.o. female presenting with neck scar. The patient reports that she had neck surgery October 2022 and she has been dealing with the scar ever since. She reports that she has tried to use vitamin E oil on it with massage but it never got any better. The patient reports that it is sore all the time. She reports that even her clothing rubbing against it hurts. She reports that it interferes with the range of motion of her neck. Past Medical History She has a past medical history of Anxiety, Dental disease, Depression, HL (hearing loss), Hypertension, Leg edema, Obesity, Osteoporosis, Personal history of other diseases of the circulatory system,Personal history of other endocrine, nutritional and metabolic disease, Type 2 diabetes mellitus, Un specified osteoarthritis, unspecified site, and Walker as ambulation aid. She has no past medical history of Dysphagia. Surgical History She has a past surgical history that includes Hysterectomy (N/A); Total knee arthroplasty (N/A); Total hip arthroplasty (N/A); Back surgery; Joint replacement; Bariatric Surgery; Hand surgery; Cholecystectomy; and Spinal fusion (10/2022). Family History Family History[1] Social History She reports that she has never smoked. She has never used smokeless tobacco. She reports that she does not drink alcohol and does not use drugs. Occupational History Occupational history[2] Employer: No address on file. Travel History Relevant International Travel History: Travel Screening Question Response Have you been in contact with someone who was sick? No / Unsure Do you have any of the following new or worsening symptoms? None of these Have you traveled internationally or domestically in the last month? No Travel History Travel since 10/10/24 No documented travel since 10/10/24 Relevant Domestic Travel History: none Immunizations not reviewed VACCINE/DOSE Flu Tetanus Pneumovax Shingles Allergies Cephalexin, Morphine and codeine, and Penicillins Medications Current Medications[3] Review of Systems 14-point review of systems negative except as stated per HPI Physical Exam Vitals reviewed. Constitutional: Appearance: Normal appearance. HENT: Head: Normocephalic. Nose: Nose normal. Mouth/Throat: Mouth: Mucous membranes are moist. Eyes: Pupils: Pupils are equal, round, and reactive to light. Neck: Cardiovascular: Pulses: Normal pulses. Pulmonary: Effort: Pulmonary effort is normal. Abdominal: General: Bowel sounds are normal. Musculoskeletal: General: Normal range of motion. Skin: General: Skin is warm and dry. Capillary Refill: Capillary refill takes less than 2 seconds. Neurological: Mental Status: She is alert and oriented to person, place, and time. Psychiatric: Mood and Affect: Mood normal. Last Recorded Vitals Blood pressure 131/85, pulse 81, temperature 36.3 ??C (97.3 ??F), resp. rate 20, height 1.702 m (5'7 ), weight 97.4 kg (214 lb 11.7 oz), SpO2 94%. Relevant Results none Assessment/Plan Principal Problem: Scar contracture Paige Kennedy is a 64 y o female with PMH of HTN, diabetes and degenerative arthritis that presents to clinic with scar contracture of her neck. We discussed the plan to excise the current scar and close it with a z plasty which should reduce the risk of the contracture from coming back. - to OR - consent obtained [1] Family History Problem Relation Name Age of Onset Diabetes Mother Hypertension Mother Arthritis Mother Aneurysm Sister Heart disease Brother Heart Problem Brother Aneurysm Other Diabetes Other Conversions - Other Other Heart trouble [2] [3] Current Facility-Administered Medications Medication Dose Route Frequency Provider Last Rate Last Admin sodium chloride 0.9 % flush 10 mL 10 mL Intravenous q12h Danyell Moscoso, [employer] DISPATCHER 10 mL at 11/10/24 0902 And sodium chloride 0.9 % flush 10 mL 10 mL Intravenous PRN Danyell Moscoso [employer]CR[employer] DISPATCH[employer] Cosigned by João Reyes MD at 11/10/2024 2:29 PM EDT * PAT Phone Note - Gardenia Padilla RN - 10/28/2024 11:03 AM EDT HPI Paige Kennedy is a 64 y.o. female who presents with Pre-op Diagnosis * Scar contracture [L90.5] now scheduled for Excision of anterior neck scar with z plasty (Right). Date scheduled is 11/10/2024. last anesthesia evaluation performed 09/08/24 for this surgery. Surgery was delayed due to possible foot infection. Patient received antibiotics and foot is better. Patient states no other changes in health. Medical History[1] Family History[2] Social History[3] SURGICAL HISTORY: Surgical History[4] Allergies[5] MEDICATIONS: No current facility-administered medications for this encounter. Current Outpatient Medications: ascorbic acid, Take 2 tablets by mouth daily. carvedilol, Take 1 tablet (3.125 mg total) by mouth 2 (two) times a day with meals. cholecalciferol, Take 1 tablet by mouth daily. cyanocobalamin, every 30 (thirty) days. DULoxetine, Take 1 capsule by mouth 2 (two) times a day. Do not crush or chew. furosemide, TAKE ONE TABLET BY MOUTH EVERY MORNING NEEDED FOR EDEMA lamoTRIgine, Take 1 tablet by mouth 2 (two) times a day. LORazepam, Take 1 tablet by mouth 4 (four) times a day as needed. EQL Century Mature Women 50+, Take 1 tablet by mouth 1 (one) time each day. Nurtec, Dissolve 1 tablet on the tongue nightly. prn OXcarbazepine, Take 1 tablet by mouth 2 (two) times a day. potassium chloride CR, TAKE ONE TABLET BY MOUTH EVERY DAY with furosemide promethazine, TAKE ONE TABLET BY MOUTH EVERY 6 HOURS NEEDED FOR NAUSEA OR vomiting MAY CAUSE DROWSINESS Qulipta, Take 60 mg by mouth daily. Semaglutide (OZEMPIC, 0.25 OR 0.5 MG/DOSE, SC), Inject 0.5 mg under the skin 1 (one) time per week. Unable to Find, Med Name: Pain pump, with hydromorphone/bupivacaine zolpidem, Take by mouth at night if needed for sleep. B-D 3CC LUER-NGOZI SYR 25GX1 , USE TO inject B12 ciprofloxacin, instill 1 DROP into affected eye(s) FOUR TIMES DAILY UNTIL CLEAR (Patient not taking: Reported on 12/02/2023) ciprofloxacin, TAKE ONE TABLET BY MOUTH TWICE DAILY FOR 3 DAYS -- FINISH ALL MEDICINE -- (Patient not taking: Reported on 12/02/2023) clindamycin, TAKE ONE CAPSULE BY MOUTH THREE TIMES DAILY FOR 10 DAYS -- FINISH ALL MEDICINE -- (Patient not taking: Reported on 12/02/2023) ferrous sulfate, Take 1 tablet (324 mg total) by mouth 1 (one) time each day. Do not crush, chew, or split. (Patient not taking: Reported on 09/08/2024) gabapentin, Take 1 capsule (300 mg total) by mouth 3 (three) times a day. (Patient not taking: Reported on 10/28/2024) HYDROcodone-acetaminophen, TAKE ONE TABLET BY MOUTH EVERY 6 HOURS NEEDED MAY CAUSE DROWSINESS (Patient not taking: Reported on 12/02/2023) ibandronate, TAKE ONE TABLET BY MOUTH ONCE a MONTH (take ON an EMPTY stomach, 1 hour prior TO eating drinking) take with water (Patient not taking: Reported on 10/28/2024) ibuprofen, TAKE ONE TABLET BY MOUTH EVERY 6 HOURS NEEDED --TAKE WITH FOOD-- (Patient not taking:Reported on 12/02/2023) ibuprofen, TAKE ONE TABLET BY MOUTH EVERY 6 HOURS NEEDED FOR mild pain --TAKE WITH FOOD-- (Patient not taking: Reported on 12/02/2023) Multi-Vitamin, Take 1 tablet by mouth 1 (one) time each day. (Patient not taking: Reported on 09/08/2024) Na Sulfate-K Sulfate-Mg Sulf, dilute; drink full AMOUNT early evening BEFORE procedure AND NEXT morning AT least 2 hours BEFORE procedure; FOLLOWING with 960 ML of water. (Patient not taking: Reported on 10/28/2024) naloxone, --do not prime-- SPRAY 1 SPRAY in 1 nostril DIRECTED NEEDED FOR oversedation (Patient not takin. Give 1 spray in nostril for no/slow breathing or cannot wake after opioid use 2. Call 911 3. Repeat in other nostril if symptoms continue Reported on 10/28/2024) nitrofurantoin (macrocrystal-monohydrate), TAKE ONE CAPSULE BY MOUTH TWICE DAILY FOR 5 DAYS -- FINISH ALL MEDICINE -- --TAKE WITH A MEAL/FOOD-- (Patient not taking: Reported on 12/02/2023) ondansetron, ondansetron ODT, Take 1 tablet (4 mg) by mouth every 8 hours as needed. sulfamethoxazole-trimethoprim, TAKE ONE TABLET BY MOUTH TWICE DAILY -- FINISH ALL MEDICINE -- (Patient not taking: Reported on 09/08/2024) tiZANidine, TAKE ONE TABLET BY MOUTH TWICE DAILY MAY CAUSE DROWSINESS (Patient not taking: Reportedon 09/08/2024) triazolam, TAKE TWO TABLETS BY MOUTH 1 HOUR PRIOR TO DENTAL APPOINTMENT. DO NOT DRIVE WHILE TAKING MAY CAUSE DROWSINESS Ubrelvy, Take 1 tablet (100 mg) by mouth 1 (one) time as needed. (Patient not taking: Reported on 10/28/2024) Gardenia Padilla RN [1] Past Medical History: Diagnosis Date Anxiety Dental disease dentures Depression HL (hearing loss) Hypertension Leg edema Obesity Osteoporosis Personal history of other diseases of the circulatory system History of hypertension Personal history of other endocrine, nutritional and metabolic disease History of diabetes mellitus Type 2 diabetes mellitus diet controlled Unspecified osteoarthritis, unspecified site Degenerative arthritis Walker as ambulation aid [2] Family History Problem Relation Name Age of Onset Diabetes Mother Hypertension Mother Arthritis Mother Aneurysm Sister Heart disease Brother Heart Problem Brother Aneurysm Other Diabetes Other Conversions - Other Other Heart trouble [3] Social History Tobacco Use Smoking status: Never Smokeless tobacco: Never Vaping Use Vaping status: Never Used Substance Use Topics Alcohol use: Never Drug use: Never [4] Past Surgical History: Procedure Laterality Date BACK SURGERY BARIATRIC SURGERY CHOLECYSTECTOMY HAND SURGERY HYSTERECTOMY N/A Hysterectomy from [facility] JOINT REPLACEMENT SPINAL FUSION 10/2022 TOTAL HIP ARTHROPLASTY N/A Hip replacement from [facility] TOTAL KNEE ARTHROPLASTY N/A Knee replacement from [facility] [5] Allergies Allergen Reactions Cephalexin Rash, Other - please document in the comment field and Unknown - Patient states they do not know rxn details serum sickness serum sickness Morphine And Codeine Itching and Unknown - Patient states they do not know rxn details Penicillins Rash and Unknown - Patient states they do not know rxn details * Preprocedure Instructions - Gardenia Padilla RN - 10/28/2024 11:00 AM EDT Home Medication Instructions Current Medications Medication Instructions ascorbic acid (Vitamin C) 500 MG tablet Hold day of surgery carvedilol (Coreg) 3.125 MG tablet Take morning of surgery cholecalciferol (Vitamin D-3) 10 MCG (400 UNIT) tablet Hold day of surgery cyanocobalamin (Vitamin B-12) 1000 MCG/ML injection Hold day of surgery DULoxetine (Cymbalta) [address] capsule Take morning of surgery furosemide (Lasix) 40 MG tablet Hold day of surgery lamoTRIgine (LaMICtal) 200 MG tablet Take morning of surgery LORazepam (Ativan) 1 MG tablet Take as needed Multiple Vitamins-Minerals (EQL Century Mature Women 50+) tablet Hold day of surgery Nurtec 75 MG tablet dispersible Take as needed OXcarbazepine (Trileptal) 300 MG tablet Take morning of surgery potassium chloride CR (Klor-Con M20) 20 MEQ ER tablet Hold day of surgery promethazine (Phenergan) 12.5 MG tablet Take as needed Qulipta 60 MG tablet Take morning of surgery Semaglutide (OZEMPIC, 0.25 OR 0.5 MG/DOSE, SC) Hold 7 days before surgery UNABLE TO FIND pain pump Take morning of surgery zolpidem (Ambien) 10 MG tablet Take night before surgery General Preoperative Instructions You will be called the business day before surgery with your arrival time Do not eat or drink thick liquids after midnight, encouraged to drink clear liquids until two hoursprior to arrival time (which include water, Pedialyte, apple juice, Gatorade (avoid reds/blue/purple), avoid carbonated drinks). No alcohol or smoking prior to surgery Arrive on time to avoid delays Parking/Registration procedure explained You MUST have a responsible adult available for transport to and from hospital Visitation policy for the day of surgery reviewed Bring insurance card, photo ID, along with power of employee benefits attorney, guardianship or advanced directives if applicable Do not bring money, jewelry or other valuables Hibiclens bathing instructions reviewed if applicable Notify surgeon of fever, illness, any changes or if you decide not to have surgery Diabetes Instructions (If applicable) Take diabetes medication as instructed You may have up to 4 ounces of apple juice 2 hours prior to arrival for surgery for low glucose * Preprocedure Instructions - Venice Chester RN - 09/08/2024 9:30 AM EST Home Medication Instructions Current Medications Medication Instructions ascorbic acid (Vitamin C) 500 MG tablet Hold day of surgery carvedilol (Coreg) 3.125 MG tablet Take morning of surgery cholecalciferol (Vitamin D-3) 10 MCG (400 UNIT) tablet Hold day of surgery cyanocobalamin (Vitamin B-12) 1000 MCG/ML injection Hold day of surgery DULoxetine (Cymbalta) [address] capsule Take morning of surgery furosemide (Lasix) 40 MG tablet Hold day of surgery gabapentin (Neurontin) 300 MG capsule Take as needed ibandronate (Boniva) 150 MG tablet Hold day of surgery lamoTRIgine (LaMICtal) 200 MG tablet Take morning of surgery Multiple Vitamins-Minerals (EQL Century Mature Women 50+) tablet Hold day of surgery Nurtec 75 MG tablet dispersible Take night before surgery OXcarbazepine (Trileptal) 300 MG tablet Take morning of surgery potassium chloride CR (Klor-Con M20) 20 MEQ ER tablet Hold day of surgery promethazine (Phenergan) 12.5 MG tablet Take as needed Qulipta 60 MG tablet Take as needed Ubrelvy 100 MG tablet Take as needed zolpidem (Ambien) 10 MG tablet Take night before surgery General Preoperative Instructions You will be called the business day before surgery with your arrival time Do not eat after midnight. Encouraged to drink clear liquids up until 2 hours prior to arrival time. No alcohol or smoking prior to surgery Arrive on time to avoid delays Parking/Registration procedure explained You MUST have a responsible adult available for transport to and from hospital Visitation policy for the day of surgery reviewed Bring insurance card, photo ID, along with power of employee benefits attorney, guardianship or advanced directives if applicable Do not bring money, jewelry or other valuables Hibiclens bathing instructions reviewed if applicable Notify surgeon of fever, illness, any changes or if you decide not to have surgery Diabetes Instructions (If applicable) Take diabetes medication as instructed You may have up to 4 ounces of apple juice 2 hours prior to arrival for surgery for low glucose * PAT Phone Note - Venice Chester RN - 09/08/2024 9:30 AM EST DENZEL Kennedy is a 64 y.o. female who presents with Pre-op Diagnosis * Scar contracture [L90.5] now scheduled for Excision of anterior neck scar with z plasty (Right). Date scheduled is 09/15/2024. Past Medical History: Diagnosis Date Anxiety Dental disease dentures Depression HL (hearing loss) Hypertension Leg edema Obesity Osteoporosis Personal history of other diseases of the circulatory system History of hypertension Personal history of other endocrine, nutritional and metabolic disease History of diabetes mellitus Type 2 diabetes mellitus (CMS/HCC) diet controlled Unspecified osteoarthritis, unspecified site Degenerative arthritis Walker as ambulation aid Family History Problem Relation Name Age of Onset Diabetes Mother Hypertension Mother Arthritis Mother Aneurysm Sister Heart disease Brother Heart Problem Brother Aneurysm Other Diabetes Other Conversions - Other Other Heart trouble Social History Tobacco Use Smoking status: Never Smokeless tobacco: Never Vaping Use Vaping status: Never Used Substance Use Topics Alcohol use: Never Drug use: Never SURGICAL HISTORY: Past Surgical History: Procedure Laterality Date BACK SURGERY BARIATRIC SURGERY CHOLECYSTECTOMY HAND SURGERY HYSTERECTOMY N/A Hysterectomy from [facility] JOINT REPLACEMENT SPINAL FUSION 10/2022 TOTAL HIP ARTHROPLASTY N/A Hip replacement from [facility] TOTAL KNEE ARTHROPLASTY N/A Knee replacement from [facility] Allergies Allergen Reactions Cephalexin Rash, Other - please document in the comment field and Unknown - Patient states they do not know rxn details serum sickness serum sickness Morphine And Codeine Itching and Unknown - Patient states they do not know rxn details Penicillins Rash and Unknown - Patient states they do not know rxn details MEDICATIONS: No current facility-administered medications for this encounter. Current Outpatient Medications: ascorbic acid, Take 2 tablets (1,000 mg) by mouth daily. carvedilol, Take 1 tablet (3.125 mg total) by mouth 2 (two) times a day with meals. cholecalciferol, Take 1 tablet (400 Units) by mouth daily. cyanocobalamin, every 30 (thirty) days. DULoxetine, Take 1 capsule (60 mg) by mouth 2 (two) times a day. Do not crush or chew. furosemide, TAKE ONE TABLET BY MOUTH EVERY MORNING NEEDED FOR EDEMA gabapentin, Take 1 capsule (300 mg total) by mouth 3 (three) times a day. (Patient taking differently: Take 2 capsules (600 mg) by mouth 2 (two) times a day.) ibandronate, TAKE ONE TABLET BY MOUTH ONCE a MONTH (take ON an EMPTY stomach, 1 hour prior TO eating drinking) take with water lamoTRIgine, Take 1 tablet (200 mg) by mouth 2 (two) times a day. [facility] Century Mature Women 50+, Take 1 tablet by mouth 1 (one) time each day. Nurtec, Take 1 tablet (75 mg) by mouth nightly. OXcarbazepine, Take 1 tablet (300 mg) by mouth 2 (two) times a day. potassium chloride CR, TAKE ONE TABLET BY MOUTH EVERY DAY with furosemide promethazine, TAKE ONE TABLET BY MOUTH EVERY 6 HOURS NEEDED FOR NAUSEA OR vomiting MAY CAUSE DROWSINESS Qulipta, Take 60 mg by mouth 2 (two) times a day. Ubrelvy, Take 1 tablet (100 mg) by mouth 1 (one) time as needed. zolpidem, Take by mouth at night if needed for sleep. B-D 3CC LUER-NGOZI SYR 25GX1 , USE TO inject B12 ciprofloxacin, instill 1 DROP into affected eye(s) FOUR TIMES DAILY UNTIL CLEAR (Patient not taking: Reported on 12/02/2023) ciprofloxacin, TAKE ONE TABLET BY MOUTH TWICE DAILY FOR 3 DAYS -- FINISH ALL MEDICINE -- (Patient not taking: Reported on 12/02/2023) clindamycin, TAKE ONE CAPSULE BY MOUTH THREE TIMES DAILY FOR 10 DAYS -- FINISH ALL MEDICINE -- (Patient not taking: Reported on 12/02/2023) ferrous sulfate, Take 1 tablet (324 mg total) by mouth 1 (one) time each day. Do not crush, chew, or split. (Patient not taking: Reported on 09/08/2024) HYDROcodone-acetaminophen, TAKE ONE TABLET BY MOUTH EVERY 6 HOURS NEEDED MAY CAUSE DROWSINESS (Patient not taking: Reported on 12/02/2023) ibuprofen, TAKE ONE TABLET BY MOUTH EVERY 6 HOURS NEEDED --TAKE WITH FOOD-- (Patient not taking:Reported on 12/02/2023) ibuprofen, TAKE ONE TABLET BY MOUTH EVERY 6 HOURS NEEDED FOR mild pain --TAKE WITH FOOD-- (Patient not taking: Reported on 12/02/2023) LORazepam, Take 1 tablet (1 mg) by mouth 4 (four) times a day if needed. Multi-Vitamin, Take 1 tablet by mouth 1 (one) time each day. (Patient not taking: Reported on 09/08/2024) Na Sulfate-K Sulfate-Mg Sulf, dilute; drink full AMOUNT early evening BEFORE procedure AND NEXT morning AT least 2 hours BEFORE procedure; FOLLOWING with 960 ML of water. naloxone, --do not prime-- SPRAY 1 SPRAY in 1 nostril DIRECTED NEEDED FOR oversedation nitrofurantoin (macrocrystal-monohydrate), TAKE ONE CAPSULE BY MOUTH TWICE DAILY FOR 5 DAYS -- FINISH ALL MEDICINE -- --TAKE WITH A MEAL/FOOD-- (Patient not taking: Reported on 12/02/2023) ondansetron, ondansetron ODT, Take 1 tablet (4 mg) by mouth every 8 hours as needed. sulfamethoxazole-trimethoprim, TAKE ONE TABLET BY MOUTH TWICE DAILY -- FINISH ALL MEDICINE -- (Patient not taking: Reported on 09/08/2024) tiZANidine, TAKE ONE TABLET BY MOUTH TWICE DAILY MAY CAUSE DROWSINESS (Patient not taking: Reportedon 09/08/2024) triazolam, TAKE TWO TABLETS BY MOUTH 1 HOUR PRIOR TO DENTAL APPOINTMENT. DO NOT DRIVE WHILE TAKING MAY CAUSE DROWSINESS Venice Chester RN documented in this encounter Plan of Treatment Upcoming Encounters Date Type Department Care Team (Late st Contact Info) Description 01/11/2025 3:10 PM EDT Office Visit [facility] [address] [place] [phone] João Reyes MD [address] [phone] Scheduled Referrals Name Type Priority Associated Diagnoses Orde r Schedule Discharge Ambulatory Referral to Plastic Surgery Outpatient Referral Routine Scar contracture Ordered: 11/10/2024 documented as of this encounter Goals Goal Patient Goal Type Associated Problems Recent Progress Patient-Stated? Author Patient will verbalize understanding of orthotic wear , care and precautions. Occupational Therapy No Johanne Woodall documented as of this encounter Procedures Procedure Name Priority Date/Time Associated Diagnosis Comments POCT GLUCOSE METER UNSOLICITED RESULTS Routine 11/10/2024 11:29 AM EDT NE WND PREP,PED, FACE/NCK/HND/FT/GEN ADD 100 CM 11/10/2024 10:30 AM EDT Scar contracture POCT GLUCOSE METER UNSOLICITED RESULTS Routine 11/10/2024 9:06 AM EDT documented in this encounter Results * POCT glucose meter (11/10/2024 11:29 AM EDT) POCT Glucose 95 74 - 99 mg/dL 11/10/2024 12:13 PM EDT [facility] Comment:Accuracy of a glucos e result obtained from a capillary whole blood specimen relies upon adequate, non-compromised capillary blood flow. If the capillary glucose result is not consistent with the patient's clinical signs and symptoms, glucose testing should be repeated with either an arterial or venous sample on the glucometer or sent to the main labortory for testing. Comment 11/10/2024 12:13 PM EDT [facility] Interior Design Instructor ID Lucie Martinez 11/11/19 12:13 PM EDT [facility] LAB Device ID [id number] 11/10/2024 12:13 PM EDT [facility] Specimen Type POC Capillary 11/10/2024 12:13 PM EDT [facility] Blood Capillary blood specimen / Unknown 11/10/2024 11:29 AM EDT 11/10/2024 12:13 PM EDT us João Reyes MD LAB POINT OF CARE TE ST DOCKED DEVICE UNSOLICITED RESULTS Final Result Performing Organization Address City/[facility]/ZIP Co de Phone Number [facility] [address] [place] [address] * (ABNORMAL) POCT glucose meter (11/10/2024 9:06 AM EDT) [facility] POCT Glucose 102(H) 74 - 99 mg/dL 11/10/2024 9:08 AM EDT [facility] Comment:Accuracy of a glucos e result obtained from a capillary whole blood specimen relies upon adequate, non-compromised capillary blood flow. If the capillary glucose result is not consistent with the patient's clinical signs and symptoms, glucose testing should be repeated with either an arterial or venous sample on the glucometer or sent to the main labortory for testing. Comment 11/10/2024 9:08 AM EDT [facility] Interior Design Instructor ID Asiya Hairston 025 9:08 AM EDT [facility] LAB Device ID [id number] 11/10/2024 9:08 AM EDT [facility] Specimen Type POC Capillary 11/10/2024 9:08 AM EDT [facility] Blood Capillary blood specimen / Unknown 11/10/2024 9:06 AM EDT 11/10/2024 9:08 AM EDT us João Reyes MD LAB POINT OF CARE TE ST DOCKED DEVICE UNSOLICITED RESULTS Final Result [facility] [address] [place] [phone] documented in this encounter Visit Diagnoses Diagnosis Scar contracture- Primary Scar contracture documented in this encounter Admitting Diagnoses Diagnosis Scar contracture documented in this encounter Administered Medications Inactive Administered Medications - up to 3 most recent administrations Medication Order MAR Action Action Date Dose Rate Site fentaNYL (Sublimaze) injection 50 mcg 50 mcg, Intravenous, Every 5 min PRN, 2 doses, Starting on Fri11/10/24 at 1131, Until Fri11/10/24 at 1430, Routine, Recovery (Phase I only), pain score of 5-8 out of 10 naloxone (Narcan) injection 0.4 mg 0.4 mg, Intravenous, As needed, Starting on Fri11/10/24 at 1131, Until Fri11/10/24 at 1430, Routine, Recovery (Phase I only), respiratory depression ondansetron (Zofran) injection 4 mg 4 mg, Intravenous, Once as needed, 1 dose, Starting on Fri11/10/24 at 1131, Until Fri11/10/24 at 1430, Routine, Recovery (Phase I only), nausea, vomiting oxyCODONE (Roxicodone) immediate release tablet 10 mg 10 mg, Oral, Once as needed, 2 doses, Starting on Fri11/10/24 at 1131, Until Fri11/10/24 at 1430, Routine, Recovery (Phase I only), pain score of 6-8 out of 10 Given 11/10/2024 11:46 AM EDT 10 mg oxyCODONE (Roxicodone) immediate release tablet 5 mg 5 mg, Oral, Once as needed, 2 doses, Starting on Fri11/10/24 at 1131, Until Fri11/10/24 at 1430, Routine, Recovery (Phase I only), pain score of 3-5 out of 10 sodium chloride 0.9 % flush 10 mL 10 mL, Intravenous, Every 12 hours, First dose on Fri11/10/24 at 0900, Until Discontinued, Routine, Holding - Preprocedure Given 11/10/2024 9:02 AM EDT 10 mL sodium chloride 0.9 % flush 10 mL 10 mL, Intravenous, As needed, Starting on Fri11/10/24 at 0814, Until Fri11/10/24 at 1430, Routine, Holding - Preprocedure, line care documented in this encounter Active and Recently Administered Medications Times are shown in EDT. Scheduled Medication Order 11/08/2024 11/09/2024 11/10/2024 lactated Ringer's infusion 20 mL/hr, Intravenous, Once, 1 dose, On Fri11/10/24 at 1230, Routine 1230 (Canceled Entry - Provider: Automatic Discharge Provider - Comment: Automatically canceled at discontinue of medication order) sodium chloride 0.9 % flush 10 mL(Linked Group 1) 10 mL, Intravenous, Every 12 hours, First dose on Fri11/10/24 at 0900, Until Discontinued, Routine, Holding - Preprocedure 0902 (Given - Provid er: Asiya Hairston RN) PRN Medication Order 11/08/2024 11/09/2024 11/10/2024 fentaNYL (Sublimaze) injection 50 mcg 50 mcg, Intravenous, Every 5 min PRN, 2 doses, Starting on Fri11/10/24 at 1131, Until Fri11/10/24 at 1430, Routine, Recovery (Phase I only), pain score of 5-8 out of 10 lidocaine-EPINEPHrine (Xylocaine W/EPI) 1 %-1:243378 injection (CANCELED) As needed, Starting on Fri11/10/24 at 1102, Until Fri11/10/24 at 1122, Routine, Intraprocedure 1102 (Given - Provid er: Humberto Muñoz MD - Comment: neck) naloxone (Narcan) injection 0.4 mg 0.4 mg, Intravenous, As needed, Starting on Fri11/10/24 at 1131, Until Fri11/10/24 at 1430, Routine, Recovery (Phase I only), respiratory depression ondansetron (Zofran) injection 4 mg 4 mg, Intravenous, Once as needed, 1 dose, Starting on Fri11/10/24 at 1131, Until Fri11/10/24 at 1430, Routine, Recovery (Phase I only), nausea, vomiting oxyCODONE (Roxicodone) immediate release tablet 10 mg(Linked Group 2) 10 mg, Oral, Once as needed, 2 doses, Starting on Fri11/10/24 at 1131, Until Fri11/10/24 at 1430, Routine, Recovery (Phase I only), pain score of 6-8 out of 10 1146 (Given - Provid er: Lucie Martinez RN) oxyCODONE (Roxicodone) immediate release tablet 5 mg(Linked Group 2) 5 mg, Oral, Once as needed, 2 doses, Starting on Fri11/10/24 at 1131, Until Fri11/10/24 at 1430, Routine, Recovery (Phase I only), pain score of 3-5 out of 10 1146 (See Alternativ e - Provider: Lucie Martinez RN) sodium chloride 0.9 % flush 10 mL(Linked Group 1) 10 mL, Intravenous, As needed, Starting on Fri11/10/24 at 0814, Until Fri11/10/24 at 1430, Routine, Holding - Preprocedure, line care sodium chloride 0.9 % irrigation solution (COMPLETED) Continuous PRN, Starting on Fri11/10/24 at 1102, Until Fri11/10/24 at 1122, Routine 1102 (New Bag - Prov ider: Humberto Muñoz MD) Linked Groups Order Group 1: Insert peripheral IV (CANCELED) Once, On Fri11/10/24 at 0815, For 1 occurrence, Holding - Preprocedure And Saline lock IV (CANCELED) Once, On Fri11/10/24 at 0815, For 1 occurrence, Holding - Preprocedure And sodium chloride 0.9 % flush 10 mLJump to med 10 mL, Intravenous, Every 12 hours, First dose on Fri11/10/24 at 0900, Until Discontinued, Routine, Holding - Preprocedure And sodium chloride 0.9 % flush 10 mLJump to med 10 mL, Intravenous, As needed, Starting on Fri11/10/24 at 0814, Until Fri11/10/24 at 1430, Routine, Holding - Preprocedure, line care Group 2: oxyCODONE (Roxicodone) immediate release tablet 5 mgJump to med 5 mg, Oral, Once as needed, 2 doses, Starting on Fri11/10/24 at 1131, Until Fri11/10/24 at 1430, Routine, Recovery (Phase I only), pain score of 3-5 out of 10 Or oxyCODONE (Roxicodone) immediate release tablet 10 mgJump to med 10 mg, Oral, Once as needed, 2 doses, Starting on Fri11/10/24 at 1131, Until Fri11/10/24 at 1430, Routine, Recovery (Phase I only), pain score of 6-8 out of 10 documented in this encounter Additional Health Concerns Assessment Noted Time A fall risk assessment has been complete d for the patient 12/02/2023 9:41 AM EDT A Body Mass Index follow-up plan has been documented for the patient 08/19/2024 1:32 PM EST documented as of this encounter Care Teams Family Support Specialist Relationship Specialty Start Date End Date Omar De La Torre MD [address] [place] [address] [address] [place] [address] PCP - General 11/24/20 documented as of this encounter
--- OUTSIDE RECORDS SUMMARY | 2024-11-10 09:45 | XMS_ITS | Encounter Summary ---
Author Organization Healthcare Address [address] [place] [address] Care Team Providers Care Electrician Second Name Role Phone Omar De La Torre MD Primary Care Provider Reason for Visit * Auth/Cert (Routine) Specialty Diagnoses / Procedures Referred By Contac t Referred To Contact Diagnoses Scar contracture Scar contracture [L90.5] Procedures [place] WND PREP,PED, FACE/NCK/HND/FT/GEN ADD 100 CM [place] ADJ TISS XFER HEAD,FAC,HAND <10 SQCM [place] ADJ TISS XFER HEAD,FAC,HAND 10.1-30 SQCM Excision of anterior neck scar with z plasty João Reyes MD [address] [place] [phone] Phone: tel: fax: [facility] [address] [place] [phone] Phone: tel: Referral ID Status Reason Start Date Expiration Date Visits Re quested Visits Authorized [id number] 1 1 Encounter Details Date Type Department Care Team (Late st Contact Info) Description 11/10/2024 9:45 AM EDT - 11/10/2024 10:45 AM EDT Surgery [facility] [address] [place] [phone] João Reyes MD [address] [place] [phone] Excision of anterior neck scar with z plasty [56470 (CPT )] Surgery Details Date/Time Status Location OR Service Patient Class Case Class Case Type Trauma Case? 11/10/2024 9:45 AM Posted [facility] OR 4OR01 Plastic Surgery [facility] Outpatient Surgery E-Electi ve Panel 1 Procedure LRB Anes Op Region Wound Class Comments Excision of anterior neck sc ar with z plasty Right General Surgeon Surgeon Role Service Panel João Reyes MD Primary Plastic Surgery 1 Minor, Humberto Delgadillo MD Resident - Assisting 1 documented in this encounter Social History Tobacco Use Types Packs/Day Years [...] Sign Reading Time Taken Comments Blood Pressure 131/85 11/10/2024 8:15 AM EDT Pulse 81 11/10/2024 8:15 AM EDT Temperature 36.3 C (97.3 F) 11/10/2024 8:15 AM EDT Respiratory Rate 20 11/10/2024 8:15 AM EDT Oxygen Saturation 94% 11/10/2024 8:15 AM EDT Inhaled Oxygen Concentration - - [...] 1 Month) No 11/10/2024 8:31 AM KALPANAT Asiya Hairston RN 2. Non-Specific Active Suici stefan Thoughts (Past 1 Month) No 11/10/2024 8:31 AM EDT Inna Hairston RN 6. Suicidal Behavior (Lifetime) No 8:31 AM KALPANAT Asiya Hairston RN documented as of this encounter Mental Status * Because of a physical, mental, or emotional condition, do you have serious difficulty concentrating, remembering, or making decisions? (5 years old or older) Answer Entry Date Author No 02/05/2021 1:25 PM KALPANAT Anette Hauser RN documented in this encounter [...] Room or call the Emergency Department at [phone]. Smoking and its health risks Smoking is [...] help quitting smoking, call the [employer] [place]'s Quitline toll free at or ask your doctor for help. Weight Management Weighing too much is not good for your health. Being overweight increases your risk of health conditions such as heart problems, high blood pressure, type 2 diabetes, and certain types of cancer. Being overweight can also increase your risk for osteoarthritis (ra-qde-ew-tps-YXIV-mhk) (joint disease), sleep apnea (abnormal breathing at [...] risk of health problems. Ask your dietitian, assessment manager or doctor about a weight loss goal [...] of controlled substances: Drug Enforcement Agency (JOSEPH): http://www.deadiversion.Stamp.itoSmeam.com.gov/drug_disposal/takeback/index.htm National Association of Drug Diversion Investigators (NADDI): http://rxdrugdropbox.org/ [place] Office of Drug Control Policy: http://odcp.me.gov/Prescription+Drug+Drop+Box+Sites.htm Are there concerns about or ? Before [...] that tracks prescriptions of controlled substances in [place]. The ELAINE report tells your doctor if you have been prescribed controlled substances in the past. Doctors must get a ELAINE report before prescribing controlled substances. What can I do if the information in my ELAINE report is wrong? You or your doctor may contact the dispenser who reported the information to [facility]. If the dispenser agrees that the information should be changed, he or she can fix the ELAINE report. However, the dispenser may certify that the report is correct. If that is the case, you or your doctor may then call the [place] Drug Enforcement and Professional Practices Branch at [...] these. [place]'s resources to help you quit: http://www.uky.edu/TobaccoFree/ - Click on the Quit Here! tab. A telephone quit line: (1-015-NAEZFTK) Web sites: www.smokefree.gov, www.becomeanex.org, www.[employer] Tobacco Treatment Counselors: Call 647-552-0203. Medicare and Medicaid pay for this. employees, retirees, and their spouses or sponsored dependents can get free nicotine replacementtherapy and coaching. Visit www.[facility]/HR/Wellness/consults.html. [facility] Education Center: Free pamphlets on quitting tobacco, [...] a day. 30 capsule 1 HYDROcodone-acetami nophen (Abrams) 7.5-325 MG tablet TAKE ONE TABLET BY [...] from the original note were not included. [address]480 Preventing a Surgical Site Infection A risk [...] of infection. ?? Controlled body temperature. A lispk-ubky-epdpiq temperature during or after surgery prevents oxygen [...] and water or with an alcohol-based hand longwall shearer operator before and after caring for you. Don?t [...] away. Last Reviewed Date: 2024 00:00:00 ?? [id number] [employer]. All rights reserved. This information is not intended as a substitute for professional medical care. Always follow your healthcare professional's instructions. * Op Note - João Reyes MD - 11/10/2024 10:56 AM EDT Operative Note Date: 11/10/24 Location: [facility] OR Name: Paige Kennedy, : 1960, Diagnoses: Pre-op Diagnosis Right neck scar contracture Post-op Diagnosis Right neck scar contracture Procedure(s): Excision of right neck scar contracture and reconstruction with adjacent tissue transfer consistingof double Z-plasty. Total flap area measuring 4 cm x 2.5 cm for a total of 10 sq cm Attending Surgeon(s): * João Reyes - Primary Lumber Carrier Operator(s): * Humberto Muñoz MD - Resident - Assisting Anesthesia: General ASA: ASA status not filed in the log. Blood Administration: Blood Product Administration History Date Volume Status Transfuse RBC 02/13/2021 650 mL Completed 02/13/21 0722 Estimated Blood Loss: Minimal Indications: Paige Kennedy [...] and metabolic disease, Type 2 diabetes mellitus, Unspecified osteoarthritis, unspecified site, and Walker as ambulation [...] mL 10 mL Intravenous q12h Danyell Moscoso, THERAPY TECH 10 mL at 11/10/24 0902 And sodium chloride 0.9 % flush 10 mL 10 mL Intravenous PRN Danyell Moscoso THERAPY TECH Cosigned by João Reyes MD at 11/10/2024 [...] card, photo ID, along with power of securities attorney, guardianship or advanced directives if applicable [...] card, photo ID, along with power of securities attorney, guardianship or advanced directives if applicable [...] Chester RN - 09/08/2024 9:30 AM EST HPI Paige Kennedy is a 64 y.o. [...] by mouth 2 (two) times a day. [facility] [employer] Mature Women 50+, Take 1 tablet [...] 01/11/2025 3:10 PM EDT Office Visit [facility] [address] [place] [phone] João Reyes MD [address] [place] [phone] Scheduled Referrals Name Type Priority Associated Diagnoses Orde r Schedule Discharge Ambulatory Referral to Plastic Surgery Outpatient Referral Routine Scar contracture Ordered: 11/10/2024 documented as of this encounter Goals Goal Patient Goal Type Associated Problems Recent Progress Patient-Stated? Author Patient will verbalize understanding of orthotic wear , care and precautions. Occupational Therapy Johanne Grimes documented as of this encounter Procedures Procedure Name Priority Date/Time Associated Diagnosis Comments POCT GLUCOSE METER UNSOLICITED RESULTS Routine 11/10/2024 11:29 AM EDT [place] WND PREP,PED, FACE/NCK/HND/FT/GEN ADD 100 CM 11/10/2024 10:30 AM EDT Scar contracture POCT GLUCOSE METER UNSOLICITED RESULTS Routine 11/10/2024 9:06 AM EDT documented in this encounter Results * POCT glucose meter (11/10/2024 11:29 AM EDT) Pathologist [facility] POCT Glucose 95 74 - 99 mg/dL 11/10/2024 12:13 PM EDT [facility] Comment:Accuracy of a glucos e result [...] for testing. Comment 11/10/2024 12:13 PM EDT [facility] Production Control Manager ID Lucie Martinez 11/11/19 12:13 PM EDT [facility] LAB Device ID [id number] 11/10/2024 12:13 PM EDT [facility] Specimen Type POC Capillary 11/10/2024 12:13 PM EDT [facility] Blood Capillary blood specimen / Unknown 11/10/2024 11:29 AM EDT 11/10/2024 12:13 PM EDT João Reyes MD LAB POINT OF CARE TE ST DOCKED DEVICE UNSOLICITED RESULTS Final Result Performing Organization Address City/[facility] Co de Phone Number [facility] [address] [place] [address] * (ABNORMAL) POCT glucose meter (11/10/2024 9:06 AM EDT) [facility] POCT Glucose 102(H) 74 - 99 mg/dL 11/10/2024 9:08 AM EDT [facility] Comment:Accuracy of a glucos e [...] for testing. Comment 11/10/2024 9:08 AM EDT [facility] Production Control Manager ID Asiya Hairston 025 9:08 AM EDT [facility] LAB Device ID [id number] 11/10/2024 9:08 AM EDT [facility] Specimen Type POC Capillary 11/10/2024 9:08 AM EDT [facility] Blood Capillary blood specimen / Unknown 11/10/2024 9:06 AM EDT 11/10/2024 9:08 AM EDT João Reyes MD LAB POINT OF CARE TE ST DOCKED DEVICE UNSOLICITED RESULTS Final Result Performing Organization Address City/[facility] Co de Phone Number [facility] [address] [place] [address] documented in this encounter Visit Diagnoses Diagnosis Scar contracture- Primary Scar contracture Scar contracture documented in this encounter Admitting [...] out of 10 lidocaine-EPINEPHrine (Xylocaine W/EPI) 1 %-1:149870 injection As needed, Starting on Fri11/10/24 at 1102, Until Fri11/10/24 at 1122, Routine, Intraprocedure Given 11/10/2024 11:02 AM EDT 4 mL naloxone (Narcan) injection 0.4 mg 0.4 mg, [...] care sodium chloride 0.9 % irrigation solution Continuous PRN, Starting on Fri11/10/24 at 1102, Until Fri11/10/24 at 1122, Routine New Bag 11/10/2024 11:02 AM EDT 1,000 mL documented in this encounter Active and Recently [...] out of 10 lidocaine-EPINEPHrine (Xylocaine W/EPI) 1 %-1:941018 injection (CANCELED) As needed, Starting on Fri11/10/24 [...] documented as of this encounter Care Teams Electrician Second Relationship Specialty Start Date End Date Omar De La Torre MD [address] [place] [address] [address] [place] [address] PCP - General 11/24/20 documented as of this encounter
--- OUTSIDE RECORDS SUMMARY | 2024-11-10 10:35 | XMS_ITS | Encounter Summary ---
Author Organization Healthcare Address [address] [place] [address] Care Team Providers Care Loan Inspector Name Role Phone Omar De La Torre MD Primary Care Provider [phone] Reason for Visit * Auth/Cert (Routine) Specialty Diagnoses / Procedures Referred By Contac t Referred To Contact Diagnoses Scar contracture Scar contracture [L90.5] Procedures WA WND PREP,PED, FACE/NCK/HND/FT/GEN ADD 100 CM WA ADJ TISS XFER HEAD,FAC,HAND <10 SQCM WA ADJ TISS XFER HEAD,FAC,HAND 10.1-30 SQCM Excision of anterior neck scar with z plasty João Reyes MD [address] [place] [address] [address] [place] [address] Phone: tel: fax: [facility] [address] [place] [address] Phone: tel: Referral ID Status Reason Start Date Expiration Date Visits Re quested Visits Authorized [id number] 1 1 Encounter Details Date Type Department Care Team (Late st Contact Info) Description 11/10/2024 10:35 AM EDT Anesthesia Event [facility] [address] [place] [address] Florian Gamez MD [address] [place] [address] Sean Edge, GUADALUPE [address] [place] [address] Anesthesia Record Procedure Summary Procedure Name Responsible Anesthesiologist Anesthesia Start Time Anesthesia Stop Time Excision of anterior neck scar with z plasty (Right) Florian Gamez MD 11/10/24 1035 11/10/24 1128 Events Date Time Event Comment 11/10/2024 1035 An Start The patient was reevaluated immediately before sedation and remains eligible for anesthesia plan. 1035 An Start Data 1035 In Room 1040 An Induction The patient was reevaluated immediately before moderate or deep sedation use and before anesthesia induction. 1043 An Intubation 1044 Anesthesia Ready 1056 Proc Start 1116 Proc Fin 1119 An Extubation 1121 an stop data 1122 Out of Room 1128 Handoff to Receiving I compl eted my handoff to the receiving clinician during which we: 1. Identified the patient 2. Identified the responsible provider 3. Reviewed the pertinent medical history 4. Discussed the surgical course 5. Reviewed intra-op anesthesia management and issues during anesthesia 6. Set expectations for post-procedure period 7. Allowed opportunity for questions and acknowledgement of understanding. 1128 An Stop Meds Name Total fentaNYL (Sublimaze) injection 50 mcg/mL 50 mcg propofol (Diprivan) injection 10 mg/mL 1 20 mg rocuronium (ZeMuron) injection 10 mg/mL 40 mg lidocaine PF (Xylocaine-MPF) 2% 60 mg dexamethasone (Decadron) injection 4 mg/ mL 4 mg ondansetron (Zofran) injection 2 mg/mL 4 mg sugammadex (Bridion) injection 100 mg/mL 200 mg clindamycin 900 MG/50ML 900 mg lactated Ringer's infusion 800 mL * Agents No agents on file. * Blood No blood administrations on file. Lines, Drains, and Airways Type Details Placement Removal Wound 11/10/24; 1103; Surg ical; Neck; Anterior 11/10/24 1103 by Praveen Gonzalez RN Wound 04/12/21; N; Other (aspiration site); Anterior, Left; 12/12/24 (Removed automatically on 12/12/2024 because of a prolonged period with no assessments.); 2247; No Documenta 04/12/21 0000 by Jocelyne Flanagan RN 12/12/24 2247 by Ip, Background User Peripheral IV Placement Date: 10/14 ; Placement Time: 0855; Catheter Size: 22 G; Orientation: Anterior, Left, Proximal, Upper; Location: Arm; Site Prep: Chlorhexidine ; Local Anesth: None; Technique: Anatomical landmarks; Inserted by: ASHLEY Hurt; Insertion Attempts: 2; Patient Tolerance: Tolerated well; Removal Date: 11/10/24; Removal Time: 1155; Removal Reason: Discharge 11/10/24 0855 by Asiya Hairston RN 11/10/24 1155 by Lucie Calvo RN ETT Placement Date: 10/14 ; Placement Time: 1043 (created via procedure documentation); Mask Ventilation: 1; Technique: Direct laryngoscopy; Type: ETT - single; Single Lumen Tube Size: 7 mm; Cuffed: Yes; Laryngoscope: Magalys; Blade Size: 3; Location: Oral; Grade View: Grade I; Insertion Attempts: 1; Placement Verification: Auscultation, Capnometry; Airway Comments: Atraumatic. No change to dentition. ; Placed by: GUADALUPE; Removal Date: 11/10/24; Removal Time: 1120 11/10/24 1043 by Sean Edge CRNA 11/10/24 1120 by Sean Edge CRNA documented in this encounter Social History Tobacco [...] on file documented as of this encounter Functional Status * Are you [...] 6. Suicidal Behavior (Lifetime) No 8:31 AM EDT Asiya Hairston RN documented as of this encounter Mental Status * Because of a physical, mental, or emotional condition, do you have serious difficulty concentrating, remembering, or making decisions? (5 years old or older) Answer Entry Date Author No 02/05/2021 1:25 PM Anette Fraser RN documented in this encounter Miscellaneous Notes * Anesthesia Postprocedure Evaluation - Sean Edge CRNA - 11/10/2024 11:28 AM EDT Patient: Paige Kennedy Anesthesia Type: general Vitals Value Taken Time BP 130/75 11/10/24 11:30 Temp 36.3 11/10/24 11:32 Pulse 80 11/10/24 11:31 Resp 20 11/10/24 11:31 SpO2 99 % 11/10/24 11:31 Vitals shown include unfiled device data. Anesthesia Post Evaluation Patient location during evaluation: PACU Patient participation: complete - patient cannot participate (drowsy but arousable) Level of consciousness: sedated Pain management: adequate (pain score 0-3) Airway patency: natural airway Cardiovascular status: acceptable and hemodynamically stable Respiratory status: acceptable, blow-by oxygen, face mask, nonlabored ventilation, spontaneous ventilation and unassisted Hydration status: acceptable Nausea/Vomiting: No No notable events documented. * Anesthesia Procedure Notes - Sean Edge CRNA - 11/10/2024 11:00 AM EDT Associated Order(s): Airway Airway Date/Time: 11/10/2024 10:43 AM Reason: elective Airway not difficult General Information and Staff Patient location during procedure: OR CHIEF UNDERWRITER: Sean Edge CRNA Performed: CHIEF UNDERWRITER Patient Condition Indications for airway management: anesthesia Patient position: sniffing Final Airway Details Final airway type: endotracheal airway Successful airway: ETT Cuffed: yes Successful intubation technique: direct laryngoscopy Adjuncts used in placement: intubating stylet Endotracheal tube insertion site: oral Blade: Magalys Blade size: #3 ETT size (mm): 7.0 Cormack-Lehane Classification: grade I - full view of glottis Placement verified by: chest auscultation and capnometry Cuff volume (mL): 7 Measured from: teeth ETT to teeth (cm): 21 Additional Comments Atraumatic. No change to dentition. * Anesthesia Preprocedure Evaluation - Florian Gamez MD - 11/10/2024 8:11 AM EDT Patient: Paige Kennedy Procedure Information Anesthesia Start Date/Time: 11/10/24 1035 Procedure: Excision of anterior neck scar with z plasty (Right) Location: [facility] / [facility] OR Surgeons: João Reyes MD Relevant Problems Anesthesia (within normal limits) Cardio (+) HTN (hypertension) Endo (within normal limits) GI (+) Obesity /Renal (within normal limits) Neuro/Psych (+) Status post bariatric surgery Pulmonary (within normal limits) Other (+) Generalized OA (+) Scar contracture Anesthesia Evaluation HPI Paige Kennedy is a 64 y.o. [...] History[3] SURGICAL HISTORY: Surgical History[4] Allergies[5] MEDICATIONS: Current Facility-Administered Medications: fentaNYL lactated Ringer's naloxone ondansetron oxyCODONE OR oxyCODONE Insert peripheral IV AND Saline lock IV AND sodium chloride AND sodium chloride NPO Status Date of Last Liquid: 11/10/24 Time of Last Liquid: 0600 Date of Last Solid: 11/09/24 Time of Last Solid: 2200 Last Intake Type: Clear fluids Time of Last Void: 0700 Physical Exam Airway Mallampati: II Mouth opening: normal TM distance: >3 FB Neck ROM: full Cardiovascular Rhythm: regular Rate: normal Dental - normal exam (+) upper dentures, lower dentures Pulmonary Breath sounds clear to auscultation Neurological Oriented: normal to time, normal to place and normal to person and oriented to person, place and time Skin - normal exam Musculoskeletal - normal exam Extremities -normal exam Anesthesia Plan ASA 3 Plan was reviewed with: CHIEF UNDERWRITER Anesthesia technique(s) discussed with the patient/family: general Anesthesia plan agreed upon was: general Comment: Pt has a lumbar pain ump in place (Dilaudid and bupivicaine/ropivicain) Anesthetic plan and risks discussed with patient. Additional Equipment Requests [1] Past Medical History: Diagnosis Date Anxiety [...] states they do not know rxn details documented in this encounter Plan of Treatment Upcoming Encounters Date Type Department Care Team (Late st Contact Info) Description 01/11/2025 3:10 PM EDT Office Visit [facility] [address] [place] [address] João Reyes MD [address] [phone] documented as of this encounter Goals Goal Patient Goal Type Associated Problems Recent Progress Patient-Stated? Author Patient will verbalize understanding of orthotic wear , care and precautions. Occupational Therapy No Johanne Woodall documented as of this encounter Procedures Procedure Name Priority Date/Time Associated Diagnosis Comments PB ANESTHESIA PLACEHOLDER Routine 11/10/2024 10:43 AM EDT WA AN ELECTIVE ENDOTRACHEAL AIRWAY Routine 11/10/2024 10:43 AM EDT documented in this encounter Results * WA AN ELECTIVE ENDOTRACHEAL AIRWAY, PB ANESTHESIA PLACEHOLDER (11/10/2024 10:43 AM EDT) Narrative Sean Edge CRNA - 11/10/2024 10:43 AM EDT Sean Edge CRNA 11/10/2024 11:03 AM Airway Date/Time: 11/10/2024 10:43 AM Reason: elective Airway not difficult General Information and Staff Patient location during procedure: OR CHIEF UNDERWRITER: Sean Edge CRNA Performed: CHIEF UNDERWRITER Patient Condition Indications for airway management: anesthesia Patient position: sniffing Final Airway Details Final airway type: endotracheal airway Successful airway: ETT Cuffed: yes Successful intubation technique: direct laryngoscopy Adjuncts used in placement: intubating stylet Endotracheal tube insertion site: oral Blade: Magalys Blade size: #3 ETT size (mm): 7.0 Cormack-Lehane Classification: grade I - full view of glottis Placement verified by: chest auscultation and capnometry Cuff volume (mL): 7 Measured from: teeth ETT to teeth (cm): 21 Additional Comments Atraumatic. No change to dentition. us Florian Gamez MD ANESTHESIA ORDERABLES Fin al Result documented in this encounter Visit Diagnoses Not on filedocumented in this encounter Administered Medications Inactive Administered Medications - up to 3 most recent administrations Medication Order MAR Action Action Date Dose Rate Site clindamycin (Cleocin) IV solution Intravenous, As needed, Starting on Fri11/10/24 at 1046, Until Fri11/10/24 at 1132, Routine, Anesthesia Intraprocedure Given 11/10/2024 10:46 AM EDT 900 mg dexamethasone (Decadron) injection Intravenous, As needed, Starting on Fri11/10/24 at 1044, Until Fri11/10/24 at 1132, Routine, Anesthesia Intraprocedure Given 11/10/2024 10:44 AM EDT 4 mg fentaNYL (Sublimaze) injection Intravenous, As needed, Starting on Fri11/10/24 at 1040, Until Fri11/10/24 at 1132, Routine, Anesthesia Intraprocedure Given 11/10/2024 10:40 AM EDT 50 mcg lactated Ringer's infusion Intravenous, Continuous PRN, Starting on Fri11/10/24 at 1035, Until Fri11/10/24 at 1132, Routine New Bag 11/10/2024 10:35 AM EDT lidocaine PF (Xylocaine) 2 % injection Intravenous, As needed, Starting on Fri11/10/24 at 1040, Until Fri11/10/24 at 1132, Routine, Anesthesia Intraprocedure Given 11/10/2024 10:40 AM EDT 60 mg ondansetron (Zofran) injection Intravenous, As needed, Starting on Fri11/10/24 at 1116, Until Fri11/10/24 at 1132, Routine, Anesthesia Intraprocedure Given 11/10/2024 11:16 AM EDT 4 mg propofol (Diprivan) injection Intravenous, As needed, Starting on Fri11/10/24 at 1040, Until Fri11/10/24 at 1132, Routine, Anesthesia Intraprocedure Given 11/10/2024 10:40 AM EDT 120 mg rocuronium (ZeMuron) injection Intravenous, As needed, Starting on Fri11/10/24 at 1040, Until Fri11/10/24 at 1132, Routine, Anesthesia Intraprocedure Given 11/10/2024 10:40 AM EDT 40 mg sugammadex (Bridion) 100 MG/ML injection Intravenous, As needed, Starting on Fri11/10/24 at 1116, Until Fri11/10/24 at 1132, Routine, Anesthesia Intraprocedure Given 11/10/2024 11:16 AM EDT 200 mg documented in this encounter Additional Health Concerns Assessment Noted Time A fall risk assessment has been complete d for the patient 12/02/2023 9:41 AM EDT A Body Mass Index follow-up plan has been documented for the patient 08/19/2024 1:32 PM EST documented as of this encounter Care Teams Loan Inspector Relationship Specialty Start Date End Date Omar De La Torre MD [address] [place] [address] [address] [place] [address] PCP - General 11/24/20 documented as of this encounter
--- OUTSIDE RECORDS SUMMARY | 2024-11-25 14:00 | XMS_ITS | Encounter Summary ---
Author Organization [facility] Address [address] [place] [address] Care Team Providers Care Breaker Oiler Name Role Phone Omar De La Torre MD Primary Care Provider [phone] Reason for Visit * Consultation (Routine) - Closed Specialty Diagnoses / Procedures Referred By Contac t Referred To Contact Plastic Surgery Diagnoses Scar contracture João Reyes MD [address] [address] Phone: tel: fax: Referral ID Status Reason Start Date Expiration Date V isits Requested Visits Authorized [id number] Closed Specialty Services Required 11/10/2024 05/12/2026 1 1 Encounter Details Date Type Department Care Team (Late st Contact Info) Description 11/25/2024 2:00 PM EDT Office Visit [facility] Plastic & Reconstructive Surgery [address] [place] [address] João Reyes MD [address] [address] Scar contracture (Primary Dx) Social History Tobacco Use Types Packs/Day Years Used Date Smoking Tobacco: Never Smokeless Tobacco: Never Tobacco Cessation:Counseling Given: Not [...] Sign Reading Time Taken Comments Blood Pressure 120/66 11/25/2024 2:30 PM EDT Pulse 66 11/25/2024 2:30 PM EDT Temperature - - Respiratory Rate - - Oxygen Saturation 97% 11/25/2024 2:30 PM EDT Inhaled Oxygen Concentration - - Weight 97.1 kg (214 lb) 11/25/2024 2:30 PM EDT Height - - Body Mass Index 33.52 11/10/2024 8:15 AM EDT documented in this [...] 1:25 PM EDT Anette Hauser RN documented as of this encounter Mental Status * Because of a physical, mental, or emotional condition, do you have serious difficulty concentrating, remembering, or making decisions? (5 years old or older) Answer Entry Date Author No 02/05/2021 1:25 PM EDT Anette Hauser RN documented in this encounter Miscellaneous Notes * Progress Notes - Thu Jimenez MD - 11/25/2024 2:00 PM EDT PLASTIC SURGERY CLINIC PROGRESS NOTE History of Presenting Illness: Paige Kennedy is a 64 y.o. female who presents for postoperative evaluation s/p neck scar revision with z-plasty on 11/10/[address] Reyes. Pt has been doing well since surgery. Denies pain at the surgical site. Pt has no complaints at today's visit. Denies nausea, vomiting, fever, chills. Review of Systems: Review of Systems As described above Past Medical History: Medical History[1] Objective: Vitals: 11/25/24 1430 BP: 120/66 Pulse: 66 SpO2: 97% Physical Examination: Physical Exam Constitutional: Appearance: Normal appearance. She is obese. Neck: Comments: Incision c/d/I, appropriately hyperemic, few monocryl sutures remain, no TTP, no drainageor edema, some scabbing and dry appearance Cardiovascular: Rate and Rhythm: Normal rate. Pulmonary: Effort: Pulmonary effort is normal. Skin: General: Skin is warm and dry. Capillary Refill: Capillary refill takes less than 2 seconds. Neurological: General: No focal deficit present. Psychiatric: Mood and Affect: Mood normal. Imaging: N/a Assessment/Plan: Paige Kennedy is a 64 y.o. female who presents for postoperative evaluation s/p neck scar revision with z-plasty on 11/10/[address] Reyes. Healing appropriately. Scar Care Instructions: - May apply aquaphor or similar gentle skin healing ointment. - At three weeks post-op, may begin scar creams if desired. These may include silicone based creams, such as Mederma. pt has used vitamin E oil in the past and is familiar with scar massage. - Most importantly, begin application of sunblock to the wound for the next 1 year when sunlight cannot be avoided and use wide brim hats or dark clothing coverage when possible. Ok to get the incision wet, shower normally. May soak incision for short periods however should avoid dirty water (lakes, ponds, streams, questionably maintained swimming pools) and avoid prolonged soaking more than a few minutes Removed monocryl suture tails in clinic today, tolerated well Fu chandann Thu Jimenez MD Plastic and Reconstructive Surgery [1] Past Medical History: Diagnosis Date Anxiety Dental disease dentures Depression HL (hearing loss) Hypertension Leg edema Obesity Osteoporosis Personal history of other diseases of the circulatory system History of hypertension Personal history of other endocrine, nutritional and metabolic disease History of diabetes mellitus Type 2 diabetes mellitus diet controlled Unspecified osteoarthritis, unspecified site Degenerative arthritis Walker as ambulation aid Cosigned by João Reyes MD at 12/03/2024 9:03 AM EDT Associated attestation - João Reyes MD - 12/03/2024 9:03 AM EDT I saw and evaluated the patient with the resident/fellow. I discussed the case with the resident/fellow and agree with the findings and plan as documented. documented in this encounter Plan of Treatment Upcoming Encounters Date Type Department Care Team (Late st Contact Info) Description 01/11/2025 3:10 PM EDT Office Visit [facility] [address] [place] [address] João Reyes MD [address] [address] documented as of this encounter Goals Goal Patient Goal Type Associated Problems Recent Progress Patient-Stated? Author Patient will verbalize understanding of orthotic wear , care and precautions. Occupational Therapy Johanne Grimes documented as of this encounter Visit Diagnoses Diagnosis Scar contracture- Primary documented in this encounter Additional Health Concerns Assessment Noted Time A fall risk assessment has been complete d for the patient 12/02/2023 9:41 AM EDT A Body Mass Index follow-up plan has been documented for the patient 12/03/2024 9:03 AM EDT documented as of this encounter Care Teams Breaker Oiler Relationship Specialty Start Date End Date Omar De La Torre MD [address] [place] [address] PCP - General 11/24/20 documented as of this encounter
--- OUTSIDE RECORDS SUMMARY | 2025-01-03 14:45 | XMS_ITS | Encounter Summary ---
Author Organization [facility] Address [address] [place] [address] Care Team Providers Care Barrel Assembler Name Role Phone Omar De La Torre MD Primary Care Provider [phone] Encounter Details Date Type Department Care Team (Latest Contact Info) Description 11/10/2024 Travel Social History Tobacco Use Types Packs/Day Years [...] of Assessment Author Yes 02/05/2021 1:25 PM KALPANAT Anette Hauser RN * Do you have [...] Anette Hauser RN documented in this encounter Plan of Treatment Upcoming Encounters Date Type Department Care Team (Late st Contact Info) Description 01/11/2025 3:10 PM EDT Office Visit [facility] [address] [place] [address] João Reyes MD [address] [address] documented as of this encounter Goals Goal Patient Goal Type Associated Problems Recent Progress Patient-Stated? Author Patient will verbalize understanding of orthotic wear , care and precautions. Occupational Therapy No Johanne Woodall documented as of this encounter Visit Diagnoses Not on filedocumented in this encounter Additional Health Concerns Assessment Noted Time A fall risk assessment has been complete d for the patient 12/02/2023 9:41 AM EDT A Body Mass Index follow-up plan has been documented for the patient 08/19/2024 1:32 PM EST documented as of this encounter Care Teams Barrel Assembler Relationship Specialty Start Date End Date Omar De La Torre MD [address] [address] [place] [id number] PCP - General 11/24/20 documented as of this encounter
--- OUTSIDE RECORDS SUMMARY | 2025-01-03 14:45 | XMS_ITS | Encounter Summary ---
Author Organization [email or web address] Address [address] [place] [address] Care Team Providers Care Tender Labor Name Role Phone Omar De La Torre MD Primary Care Provider [phone] Encounter Details Date Type Department Care Team (Late st Contact Info) Description 11/05/2024 Abstract [facility] Neurology - [address] [facility] [address] [place] [address] Jose Ortega MD [facility] [address] [place] [address] Social History Tobacco Use Types Packs/Day Years Used Date Smoking Tobacco: Never Passive Smoke Exposure: Past Smokeless Tobacco: Never Alcohol Use Standard Drinks/Week Comments Never 0 (1 standard drink = 0.6 oz pur e alcohol) Humiliation, Afraid, Rape, and Kick questionnair e Answer Date Recorded Within the last year, have y ou been afraid of your partner or ex-partner? No 10/25/2022 Within the last year, have y ou been humiliated or emotionally abused in other ways by your partner or ex-partner? No Within the last year, have y ou been kicked, hit, slapped, or otherwise physically hurt by your partner or ex-partner? No 10/25/2022 Within the last year, have y ou been raped or forced to have any kind of sexual activity by your partner or ex-partner? No 10/25/2022 PHQ-2 Answer Date Recorded Patient Health Questionnaire-2 Score 2 10/25/2022 [facility] Intimate Partner Violence Answer Da te Recorded Within the last year, have y ou been afraid of your partner or ex-partner? No 10/25/2022 Within the last year, have y ou been humiliated or emotionally abused in other ways by your partner or ex-partner? No Within the last year, have y ou been kicked, hit, slapped, or otherwise physically hurt by your partner or ex-partner? No 10/25/2022 Within the last year, have y ou been raped or forced to have any kind of sexual activity by your partner or ex-partner? No 10/25/2022 Interpersonal Safety Answer Date Record ed Family or friends hurt you Not on file 08/01 Family or friends insult you Not on file Family or friends threaten you Not on file 0 08/01/2023 Family or friends scream or curse at you Not on file 08/01/2023 Housing Stability Answer Date Recorded Living situation today Not on file Living situation problems Not on file 2023 Family and Community Support Answer French e Recorded Help with Day to Day Activities Not on file 08/01/2023 Feeling Lonely or Isolated Not on file 08/01 Educational Attainment Answer Date Wild rded Speak language other than Haitian at home Not on file 08/01/2023 Want help with school or training Not on file 08/01/2023 Depression Answer Date Recorded PHQ-2 Risk Not on file 08/01/2023 Disabilities Answer Date Recorded Difficulty concentrating Not on file 024 Difficulty doing errands alone Not on file 0 08/01/2023 Substance Use Answer Date Recorded Used [...] on file documented as of this encounter Plan of Treatment Upcoming Encounters Date Type Department Care Team (Late st Contact Info) Description 02/23/2025 10:00 AM EDT Office Visit [facility] Neurology - [address] [facility] [address] [place] [phone] Jose Ortega MD [address] [facility] [address] [place] [address] documented as of this encounter Visit Diagnoses Not on filedocumented in this encounter Care Teams Tender Labor Relationship Specialty Start Date End Date Omar De La Torre MD [address] [place] [address] [place] [address] PCP - General General Internal Medicine 10/16/22 documented as of this encounter
--- OUTSIDE RECORDS SUMMARY | 2025-01-03 14:45 | XMS_ITS | Encounter Summary ---
Author Organization [facility] Address [address] [place] [address] Care Team Providers Care Utility Service Worker Name Role Phone Omar De La Torre MD Primary Care Provider [phone] Reason for Visit * Reason Onset Date Comments Med Refill 05/07/2021 Encounter Details Date Type Department Care Team (Late st Contact Info) Description 05/07/2021 Refill [facility] [address] [place] [id number] João Reyes MD [address] [address] Social History Tobacco Use Types Packs/Day Years Used Date Smoking Tobacco: Never Smokeless Tobacco: Never Alcohol Use Standard Drinks/Week Comments Never 0 (1 standard drink = 0.6 oz pur e alcohol) PHQ-2 Answer Date Recorded Patient Health Questionnaire-2 Score 0 04/03/2021 Comments No Sex and Gender Information Value Date Recorded Sex Assigned at Not on file Legal Sex Female 10:08 PM EDT Gender Identity Not on file Sexual Orientation Not on file COVID-19 Exposure Response Date Recorded In the last month, have you been in contact with someone who was confirmed or suspected to have Coronavirus / COVID-19? No / Unsure 04/12/2021 12:51 PM EDT documented as of this encounter Functional Status [...] documented in this encounter Miscellaneous Notes * Telephone Encounter - Amarilis Blandon RN - 05/08/2021 7:40 AM EDT Meds sent to pharmacy * Telephone Encounter - Amarilis Blandon RN - 05/07/2021 3:53 PM EDT Spoke with pt. She is having increased pain and it will not go away with tylenol, ibuprofen and tramadol. Pt is requesting something stronger. Requested refill. * Telephone Encounter - Violette Dominguez - 05/07/2021 10:40 AM EDT Patient is requesting call back * Telephone Encounter - Adonis Gamez 05/07/2021 9:10 AM EDT Patient Phone Message Reason for Call: Patient of Dr. Reyes. Calling to speak with nurse regarding R wrist pain after surgery. Patient was offered to make an appointment but wanted to speak with nurse about pain medication being called in so patient wouldn't have to travel to clinic. Best contact number and optimal time of day to reach caller: [phone] Note: Please do not reply to this message. Follow-up communication and further actions as a result of this message need to be communicated with the patient directly, if the patient is not active onMyChart. If the patient is active on MyChart, they will receive notification of the communication/outcome via [employer]. documented in this encounter Plan of Treatment Upcoming Encounters Date Type Department Care Team (Late st Contact Info) Description 01/11/2025 3:10 PM EDT Office Visit [facility] [address] [place] [address] João Reyes MD [address] [address] documented as of this encounter Visit Diagnoses Not on filedocumented in this encounter Additional Health Concerns Assessment Noted Time A fall risk assessment has been complete d for the patient 04/03/2021 11:28 AM EDT documented as of this encounter Care Teams Utility Service Worker Relationship Specialty Start Date End Date Omar De La Torre MD [address] [facility] [address] [place] [address] PCP - General 11/24/20 documented as of this encounter
--- OUTSIDE RECORDS SUMMARY | 2025-01-03 14:45 | XMS_ITS ---
Author Organization Unknown Medications Medication Instructions Effective Dates (start - stop) Status sulfamethoxazole 800 MG / trimethoprim 160 MG Oral Tablet 3982-27-57V52:00:00.00 0+00: 00 - Completed acetaminophen 325 MG / oxyco done hydrochloride 7.5 MG Oral Tablet 1720-40-55W08:00:00.0 00+00: 00 - Completed acetaminophen 325 MG / hydro codone bitartrate 7.5 MG Oral Tablet 7552-43-76P19:00:00.000+ 00: 00 - Completed acetaminophen 325 MG / hydro codone bitartrate 7.5 MG Oral Tablet 5904-93-81U64:00:00.000+ 00: 00 - Completed sulfamethoxazole 800 MG / trimethoprim 160 MG Oral Tablet 4993-83-74N50:00:00.00 0+00: 00 - Completed lorazepam 1 MG Oral Tablet :00:00.000+00: 00 - Completed lorazepam 1 MG Oral Tablet :00:00.000+00: 00 - Completed lorazepam 1 MG Oral Tablet :00:00.000+00: 00 - Completed lorazepam 1 MG Oral Tablet :00:00.000+00: 00 - Completed lorazepam 1 MG Oral Tablet :00:00.000+00: 00 - Completed duloxetine 60 MG Delayed Rel ease Oral Capsule 1319-80-56M72:00:00.000+00: 00 - Completed lorazepam 1 MG Oral Tablet :00:00.000+00: 00 - Completed carvedilol 3.125 MG Oral Tablet 5887-40-54A17:00:00.000+00: 00 - Completed lorazepam 1 MG Oral Tablet :00:00.000+00: 00 - Completed duloxetine 60 MG Delayed Rel ease Oral Capsule 6594-68-11E86:00:00.000+00: 00 - Completed lorazepam 1 MG Oral Tablet :00:00.000+00: 00 - Completed lorazepam 1 MG Oral Tablet :00:00.000+00: 00 - Completed Microencapsulated potassium chloride 20 MEQ Extended Release Oral Tablet 9227-08-58B37:00:00.000+00: 00 - Completed duloxetine 60 MG Delayed Rel ease Oral Capsule 9345-21-12T77:00:00.000+00: 00 - Completed Microencapsulated potassium chloride 20 MEQ Extended Release Oral Tablet 4020-18-94B16:00:00.000+00: 00 - Completed furosemide 40 MG Oral Tablet 09-14-09T:00:00.000+00: 00 - Completed lorazepam 1 MG Oral Tablet :00:00.000+00: 00 - Completed duloxetine 60 MG Delayed Rel ease Oral Capsule 9816-77-69E02:00:00.000+00: 00 - Completed duloxetine 60 MG Delayed Rel ease Oral Capsule 4641-54-13D05:00:00.000+00: 00 - Completed lorazepam 1 MG Oral Tablet :00:00.000+00: 00 - Completed ondansetron 4 MG Disintegrat ing Oral Tablet 2252-49-49M21:00:00.000+00: 00 - Completed duloxetine 60 MG Delayed Rel ease Oral Capsule 0691-67-35O49:00:00.000+00: 00 - Completed lorazepam 1 MG Oral Tablet :00:00.000+00: 00 - Completed nitrofurantoin, macrocrystal s 25 MG / nitrofurantoin, monohydrate 75 MG Oral Capsule 4809-89-67X47:00:00.000+00: 00 - Completed duloxetine 60 MG Delayed Rel ease Oral Capsule 3123-91-42L47:00:00.000+00: 00 - Completed carvedilol 3.125 MG Oral Tablet 3780-80-11Q61:00:00.000+00: 00 - Completed duloxetine 60 MG Delayed Rel ease Oral Capsule 6965-97-48O16:00:00.000+00: 00 - Completed carvedilol 3.125 MG Oral Tablet 9759-91-47H95:00:00.000+00: 00 - Completed carvedilol 3.125 MG Oral Tablet 7720-60-58R39:00:00.000+00: 00 - Completed carvedilol 3.125 MG Oral Tablet 4688-61-43V49:00:00.000+00: 00 - Completed tramadol hydrochloride 50 MG Oral Tablet 2929-32-99P48:00:00.000+00: 00 - Completed promethazine hydrochloride 1 2.5 MG Oral Tablet 1779-22-09S13:00:00.000+00: 00 - Completed promethazine hydrochloride 2 5 MG Oral Tablet 4968-44-44P82:00:00.000+00: 00 - Completed tizanidine 4 MG Oral Tablet 2022:00:00.000+00: 00 - Completed ciprofloxacin 250 MG Oral Tablet 3507-29-29F41:00:00.000+00: 00 - Completed tizanidine 4 MG Oral Tablet 2022:00:00.000+00: 00 - Completed tramadol hydrochloride 50 MG Oral Tablet 5497-40-89O73:00:00.000+00: 00 - Completed lamotrigine 100 MG Oral Tablet 810-43-30I13:00:00.000+00: 00 - Completed promethazine hydrochloride 2 5 MG Oral Tablet 0437-90-06M15:00:00.000+00: 00 - Completed promethazine hydrochloride 2 5 MG Oral Tablet 0541-53-90K84:00:00.000+00: 00 - Completed promethazine hydrochloride 2 5 MG Oral Tablet 8124-71-92V86:00:00.000+00: 00 - Completed promethazine hydrochloride 1 2.5 MG Oral Tablet 9643-75-34L65:00:00.000+00: 00 - Completed tramadol hydrochloride 50 MG Oral Tablet 5301-88-21E39:00:00.000+00: 00 - Completed carvedilol 3.125 MG Oral Tablet 5321-90-65A42:00:00.000+00: 00 - Completed promethazine hydrochloride 1 2.5 MG Oral Tablet 0510-69-39G43:00:00.000+00: 00 - Completed duloxetine 60 MG Delayed Rel ease Oral Capsule 9926-16-26W48:00:00.000+00: 00 - Completed tramadol hydrochloride 50 MG Oral Tablet 0178-92-13N70:00:00.000+00: 00 - Completed ibuprofen 600 MG Oral Tablet 08-25-04:00:00.000+00: 00 - Completed carvedilol 3.125 MG Oral Tablet 7665-89-08A91:00:00.000+00: 00 - Completed carvedilol 3.125 MG Oral Tablet 6641-10-08T87:00:00.000+00: 00 - Completed tramadol hydrochloride 50 MG Oral Tablet 0528-19-04Q38:00:00.000+00: 00 - Completed ondansetron 4 MG Oral Tablet 09-15-16:00:00.000+00: 00 - Completed carvedilol 3.125 MG Oral Tablet 3197-80-04S15:00:00.000+00: 00 - Completed lamotrigine 200 MG Oral Tablet 2 979-65-16C64:00:00.000+00: 00 - Completed zolpidem tartrate 10 MG Oral Tablet 9156-63-81Y44:00:00.000+00: 00 - Completed lamotrigine 200 MG Oral Tablet 2 291-17-67Q33:00:00.000+00: 00 - Completed ibuprofen 800 MG Oral Tablet 08-20-25:00:00.000+00: 00 - Completed clindamycin 300 MG Oral Capsule 4913-36-42X28:00:00.000+00: 00 - Completed lamotrigine 200 MG Oral Tablet 2 314-11-63N70:00:00.000+00: 00 - Completed zolpidem tartrate 10 MG Oral Tablet 4522-89-57Y96:00:00.000+00: 00 - Completed tizanidine 4 MG Oral Tablet 2021T:00:00.000+00: 00 - Completed zolpidem tartrate 10 MG Oral Tablet 2480-26-37H37:00:00.000+00: 00 - Completed tizanidine 4 MG Oral Tablet 2022:00:00.000+00: 00 - Completed lamotrigine 200 MG Oral Tablet 2 446-13-58S00:00:00.000+00: 00 - Completed lamotrigine 200 MG Oral Tablet 2 505-23-49S43:00:00.000+00: 00 - Completed tizanidine 4 MG Oral Tablet 2022:00:00.000+00: 00 - Completed ibandronic acid 150 MG Oral Tablet 6419-79-81L02:00:00.000+00: 00 - Completed zolpidem tartrate 10 MG Oral Tablet 8775-19-08M83:00:00.000+00: 00 - Completed ibandronic acid 150 MG Oral Tablet 0655-37-36K55:00:00.000+00: 00 - Completed zolpidem tartrate 10 MG Oral Tablet 1418-81-86K71:00:00.000+00: 00 - Completed zolpidem tartrate 10 MG Oral Tablet 5767-01-11E70:00:00.000+00: 00 - Completed lamotrigine 200 MG Oral Tablet 2 562-23-33I66:00:00.000+00: 00 - Completed zolpidem tartrate 10 MG Oral Tablet 8778-20-18C69:00:00.000+00: 00 - Completed duloxetine 60 MG Delayed Rel ease Oral Capsule 6049-29-02T63:00:00.000+00: 00 - Completed lamotrigine 200 MG Oral Tablet 2 243-47-40U01:00:00.000+00: 00 - Completed tizanidine 4 MG Oral Tablet 2022:00:00.000+00: 00 - Completed lamotrigine 200 MG Oral Tablet 2 736-37-59Q35:00:00.000+00: 00 - Completed ibandronic acid 150 MG Oral Tablet 3387-12-82Q54:00:00.000+00: 00 - Completed lamotrigine 200 MG Oral Tablet 2 060-90-56A59:00:00.000+00: 00 - Completed furosemide 20 MG Oral Tablet 09-15-04:00:00.000+00: 00 - Completed zolpidem tartrate 10 MG Oral Tablet 7320-54-31K03:00:00.000+00: 00 - Completed oxycodone hydrochloride 5 MG Oral Tablet 6503-04-29S33:00:00.000+00: 00 - Completed zolpidem tartrate 10 MG Oral Tablet 4048-08-65D84:00:00.000+00: 00 - Completed oxycodone hydrochloride 5 MG Oral Tablet 4231-12-58T78:00:00.000+00: 00 - Completed zolpidem tartrate 10 MG Oral Tablet 9591-98-27C83:00:00.000+00: 00 - Completed oxycodone hydrochloride 5 MG Oral Tablet 4041-83-18Q17:00:00.000+00: 00 - Completed oxycodone hydrochloride 5 MG Oral Tablet 0425-14-09O20:00:00.000+00: 00 - Completed - 7058-26-04O53:00 :00.000+00: 00 - Completed zolpidem tartrate 10 MG Oral Tablet 5531-89-26H43:00:00.000+00: 00 - Completed zolpidem tartrate 10 MG Oral Tablet 1691-38-15Q52:00:00.000+00: 00 - Completed oxycodone hydrochloride 5 MG Oral Tablet 2508-06-68J06:00:00.000+00: 00 - Completed potassium chloride 10 MEQ Ex tended Release Oral Tablet 7475-09-93N53:00:00.000+00: 00 - Completed oxycodone hydrochloride 5 MG Oral Tablet 9437-78-94K98:00:00.000+00: 00 - Completed Patient Care team information Name Category Status Period Participants - - Proposed period not known -
--- OUTSIDE RECORDS SUMMARY | 2025-01-03 14:45 | XMS_ITS | Referral Summary ---
Author Organization [employer] Address [address] [place] [address] Care Team Providers Care Nylon Winder Name Role Phone Omar De La Torre MD Primary Care Provider [phone] Encounters Date Type Department Care Team Description 11/05/2024 Abstract [facility] [address] [place] [address] Jose Ortega MD 10/25/2024 Travel 10/25/2024 9:00 AM EDT Office Visit [facility] [address] [place] [address] Jose Ortega MD Weakness (Primary Dx); Migraine without aura and without status migrainosus, not intractable; Idiopathic peripheral neuropathy; B12 deficiency 10/05/2024 Refill [facility] [place] [address] Jose Ortega MD Migraine without aura and without status migrainosus, not intractable from Last 3 Months Allergies Active Allergy Reactions Criticality Noted Date Comments Adhesive Bandage Other (See Comments) 3 Gets a sunburn like reaction if adhesive on very long Cephalexin Other (See Comments) High 10/22/2022 Other reaction(s): joints lock up.. States could not bend joints at knees and elbows Morphine Other (See Comments) 10/22/2022 Other reaction(s): streak up arm; told would damage heart if med given again Penicillin Rash Low 10/22/2022 Other reaction(s): rash Medications carvediloL (COREG) 3.125 MG tablet Take 1 tablet (3.125 mg total) by mouth in the morning and 1 tablet (3.125 mg total) before bedtime. 09/04/19 Active DULoxetine (CYMBALTA) 60 MG capsule Take 1 capsule (60 mg total) by mouth in the morning and 1 capsule (60 mg total) before bedtime. 09/04/19 Active lamoTRIgine (LaMICtal) 200 MG tablet Take 1 tablet (200 mg total) by mouth in the morning and 1 tablet (200 mg total) before bedtime. 09/04/19 Active LORazepam (ATIVAN) 1 MG tablet Take 1 tablet (1 mg total) by mouth 4 (four) times daily as needed. 08/12/19 Active tiZANidine (ZANAFLEX) 4 MG tablet Take 1 tablet (4 mg total) by mouth 2 (two) times daily as needed. 09/05/19 Active zolpidem (AMBIEN) 10 mg tablet Take 1 tablet (10 mg total) by mouth nightly. Max Daily Amount: 10 mg 09/03/19 Active furosemide (LASIX) 20 MG tablet Take 1 tablet (20 mg total) by mouth daily. Active potassium chloride SA (K-DUR,KLOR-CON -M) 20 MEQ tablet Take 1 tablet (20 mEq total) by mouth in the morning. Active multivitamin per tablet Take 1 tablet by mouth in the morning. Active cholecalciferol , vitamin D3, 25 mcg (1,000 unit) capsule Take 1 capsule (1,000 Units total) by mouth in the morning. Active ascorbic acid (VITAMIN C) 500 MG tablet Take 2 tablets (1,000 mg total) by mouth daily. Active Ozempic 0.25 mg or 0.5 mg (2 mg/3 mL) pnij INJECT .25 MG SUBCUTANEOUSLY ONCE A WEEK FOR 4 WEEKS, THEN increase TO 0.5mg DOSE 10/02/19 Active traMADoL (ULTRAM) 50 mg tablet Take 1 tablet (50 mg total) by mouth nightly. Max Daily Amount: 50 mg 10/09/19 Active atogepant (Qulipta) 60 mg tabIndications: Migraine without aura and without status migrainosus, not intractable Take 1 tablet by mouth nightly. 30 tablet 5 10/26/19 25 Active cyanocobalamin 1,000 mcg/mL injectionIndica tions:B12 deficiency Inject 1000 mcg (1 ML) Intramuscular daily for 7 days, then weekly for 4 weeks, and then monthly.. 1 mL 11 10/26/19 25 Active rimegepant (Nurtec ODT) 75 mg TbDLIndications :Migraine without aura and without status migrainosus, not intractable Take 75 mg by mouth as directed May take one under the tongue as needed for migraine in 24 hours.. 16 tablet 5 10/26/19 25 Active syringe with needle (BD Luer-Filomena Syringe) 3 mL 25 gauge x 1 syrgIndications :B12 deficiency USE TO inject B12. 30 each 10/26/19 25 Active Active Problems Problem Noted Date Diagnosed Date Common migraine without aura 09/13/2024 Idiopathic peripheral neuropathy 11/26/2023 B12 deficiency 11/26/2023 Weakness 09/12/2023 Spinal stenosis, cervical region 11/01/2022 Cervical myelopathy 10/30/2022 Anxiety 10/25/2022 Overview (10/25/2022): 1chest pain due anxiety CHF (congestive heart failure) 10/25/2022 Fibromyositis 10/25/2022 Arthritis 10/25/2022 Migraine 10/25/2022 Irritable bowel syndrome (IBS) 10/25/2022 Overview (10/25/2022): diarrhea Depression with anxiety 02/13/2021 HTN (hypertension) 02/13/2021 Obesity 02/13/2021 Spondylolisthesis 03/13/2015 Social History Tobacco Use Types Packs/Day Years [...] Date Wild rded Speak language other than Syriac at home Not on file 08/01/2023 Want [...] AM CDT Sexual Orientation Not on file Last Filed Vital Signs Vital Sign Reading Time Taken Comments Blood Pressure 140/90 10/25/2024 8:59 AM EDT Pulse 74 10/25/2024 8:59 AM EDT Temperature 36.6 C (97.9 F) 11/04/2022 10:48 AM EDT Respiratory Rate 16 11/04/2022 10:48 AM EDT Oxygen Saturation 98% 11/04/2022 10:48 AM EDT Inhaled Oxygen Concentration 8% 10/30/2022 1 0:49 AM EDT Weight 97.1 kg (214 lb) 10/25/2024 8:59 AM EDT Height 170.2 cm (5' 7 ) 10/25/2022 11:11 AM EDT Body Mass Index 33.52 10/25/2022 11:11 AM EDT Plan of Treatment Upcoming Encounters Date Type Department Care Team (Late st Contact Info) Description 02/23/2025 10:00 AM EDT Office Visit [facility] Neurology - [address] [place] [phone] Jose Ortega MD [address] [place] [address] [place] [address] Medical Devices Implanted Type Area Forge Press Operator Device Identifier Shelf Expiration Date Model / Serial / Lot Bone Vivigen Formable Bl-1600-001 - [id number] Implanted:Qty : 1 on 10/30/2022 by Duane Friedman MD at [facility] IMPLANTS N/A: Spine Cervical LIFENET:LIFENET TRANSPLANT SRV 10/11/2023 BL-1600-0 01 / [id number] / Cage Eit Cif H 5mm 8d S [id number] - [id number] Implanted:Qty : 1 on 10/30/2022 by Duane Friedman MD at [facility] IMPLANTS N/A: Spine Cervical J &J:DEPUY:DEPUY SPINE 01/10/2026 [id number] / / [id number] Cage Eit Cif H 5mm 8d S [id number] - [id number] Implanted:Qty : 1 on 10/30/2022 by Duane Friedman MD at [facility] IMPLANTS N/A: Spine Cervical J &J:DEPUY:DEPUY SPINE 07/13/2023 [id number] / / [id number] Cage Eit Cif H 5mm 8d S [id number] - [id number] Implanted:Qty : 1 on 10/30/2022 by Duane Friedman MD at [facility] IMPLANTS N/A: Spine Cervical J &J:DEPUY:DEPUY SPINE 01/10/2026 [id number] / / [id number] Plt Ant Skyln Hybrd Lvl3 45mm 1867-09-045 - [id number] Implanted:Qty : 1 on 10/30/2022 by Duane Friedman MD at [facility] IMPLANTS N/A: Neck J &J:DEPUY:DEPUY SPINE 1868-03-0 45 / 8-03-0 45 / Scr Skyln Vari Sd 18mm 1867-50-018 - [id number] Implanted:Qty : 8 on 10/30/2022 by Duane Friedman MD at [facility] IMPLANTS N/A: Neck J &J:DEPUY:DEPUY SPINE 850-0 18 / [id number] / Procedures Procedure Name Priority Date/Time Associated Diagnosis Comments VITAMIN B12 Routine 10/25/2024 9:30 AM EDT B12 deficiency from Last 3 Months Results * Vitamin B12 (10/25/2024 9:30 AM EDT) Vitamin B12 475 232 - 1,245 pg/mL [facility] 10/25/2024 9:30 AM EDT 10/25/2024 Narrative [facility] - 10/26/2024 8:07 AM EDT Performed at: - [facility] [address] [id number] Medical Historian: Donnie Hart PhD, Phone: [phone] us Jose Ortega MD LAB BLOOD ORDERABLES Final Res ult [facility] from Last 3 Months Insurance BLUE CROSS/BLUE SHIELD Advance Directives For more information, please contact: [phone] Documents on File Type Date Recorded Patient [employer] Winder And Oiler Expl anation Advance Directives and Livin g Will 10/30/2022 6:04 AM * Full Code (Latest Code Status on File) Date Activated Date Inactivated Comments 10/30/2022 10:48 AM 11/04/2022 1:55 PM Care Teams Nylon Winder Relationship Specialty Start Date End Date Omar De La Torre MD [address] [place] [address] PCP - General General Internal Medicine 10/16/22
--- OUTSIDE RECORDS SUMMARY | 2025-01-03 14:45 | XMS_ITS | Clinical Summary ---
Author Organization [employer] Address [address] [place] [place] [address] Care Team Providers Care Power Brake Rebuilder Name Role Phone Omar De La Torre MD Primary Care Provider [phone] Allergies Active Allergy Reactions Criticality Noted Date [...] tablet (3.125 mg total) before bedtime. 09/04/19 23 Active DULoxetine (CYMBALTA) 60 MG capsule Take 1 capsule (60 mg total) by mouth in the morning and 1 capsule (60 mg total) before bedtime. 09/04/19 23 Active lamoTRIgine (LaMICtal) 200 MG tablet Take 1 tablet (200 mg total) by mouth in the morning and 1 tablet (200 mg total) before bedtime. 09/04/19 23 Active LORazepam (ATIVAN) 1 MG tablet Take [...] 1 tablet by mouth nightly. 30 tablet 10/26/19 Active cyanocobalamin 1,000 mcg/mL injectionIndica tions:B12 deficiency Inject 1000 mcg (1 ML) Intramuscular daily for 7 days, then weekly for 4 weeks, and then monthly.. 1 mL 10/26/19 Active rimegepant (Nurtec ODT) 75 mg TbDLIndications :Migraine without aura and without status migrainosus, not intractable Take 75 mg by mouth as directed May take one under the tongue as needed for migraine in 24 hours.. 16 tablet 10/26/19 Active syringe with needle (BD Luer-Filomena Syringe) 3 mL 25 gauge x 1 syrgIndications :B12 deficiency USE TO inject B12. 30 each 10/26/19 Active Active Problems Problem Noted Date Diagnosed [...] HTN (hypertension) 02/13/2021 Obesity 02/13/2021 Spondylolisthesis 03/13/2015 Encounters Date Type Department Care Team Description 11/05/2024 Abstract [facility] - [address] [place] [address] Jose Ortega MD 10/25/2024 9:00 AM EDT Office Visit [facility] - [address] [place] [address] Jose Ortega MD Weakness (Primary Dx); Migraine without aura and without status migrainosus, not intractable; Idiopathic peripheral neuropathy; B12 deficiency 10/25/2024 Travel 10/05/2024 Refill [facility] - [address] [place] [address] Jose Ortega MD Migraine without aura and without status migrainosus, not intractable from Last 3 Months Social History Tobacco Use Types Packs/Day Years [...] Date Wild rded Speak language other than Korean at home Not on file 08/01/2023 Want [...] Description 02/23/2025 10:00 AM EDT Office Visit [facility] - [address] [place] [phone] Jose Ortega MD [facility] [address] [place] [address] Health Maintenance Due Date Last Done Comments CT Colonography 1960 Colonoscopy 1960 Colorectal Cancer Screening 1960 FOBT/FIT 1960 Fit-DNA (Cologuard) 1960 Sigmoidoscopy 1960 HIV Screening 1975 Hepatitis C Screening 1978 DTAP/TDAP/TD VACCINES (1 - Tdap) 1979 Pap Smear 1981 Breast Cancer Screening 2000 Lipid Panel 2005 Pneumococcal 50+ years (1 of 1 - PCV) 2010 Shingles Vaccine (Zoster) (1 of 2) 2010 COVID-19 VACCINE (3 - season) 03/14/202403/2021, 07/11/2020 Influenza Vaccine (Season Ended) 2025 Tobacco Cessation Counseling and Screening (12+) 10/25/2025 10/25/2024 Respiratory Syncytial Virus (RSV) Adult or (1 - 1-dose 75+ series) 2035 Medical Devices Implanted Type Area Channel Sales Manager Device Identifier Shelf Expiration Date Model / Serial / Lot Bone Vivigen Formable Bl-1600-001 - [id number] Implanted:Qty : 1 on 10/30/2022 by Duane Friedman MD at [facility] IMPLANTS N/A: Spine Cervical LIFENET:LIFENET TRANSPLANT SRV 10/11/2023 BL-1600-0 01 / [id number] / Cage Eit Cif H 5mm 8d S [id number] - [id number] Implanted:Qty : 1 on 10/30/2022 by Duane Friedman MD at [facility] IMPLANTS N/A: Spine Cervical J &J:DEPUY:DEPUY SPINE 01/10/2026 [id number] / / [id number] Cage Eit Cif H 5mm 8d S [id number] - [id number] Implanted:Qty : 1 on 10/30/2022 by Duane Friedman MD at [facility] IMPLANTS N/A: Spine Cervical J &J:DEPUY:DEPUY SPINE 07/13/2023 [id number] / / [id number] Cage Eit Cif H 5mm 8d S [id number] - [id number] Implanted:Qty : 1 on 10/30/2022 by Duane Friedman MD at [facility] IMPLANTS N/A: Spine Cervical J &J:DEPUY:DEPUY SPINE 01/10/2026 [id number] / / [id number] Plt Ant Skyln Hybrd Lvl3 45mm 1868-03-045 - [id number] Implanted:Qty : 1 on 10/30/2022 by Duane Friedman MD at [facility] IMPLANTS N/A: Neck J &J:DEPUY:DEPUY SPINE 1867-09-0 45 / 0 45 / Scr Skyln Vari Sd 18mm 1867-50-018 - [id number] Implanted:Qty : 8 on 10/30/2022 by Duane Friedman MD at [facility] IMPLANTS N/A: Neck J &J:DEPUY:DEPUY SPINE 0 18 / 18 / Procedures Procedure Name Priority Date/Time Associated Diagnosis Comments VITAMIN B12 Routine 10/25/2024 9:30 AM EDT B12 deficiency from Last 3 Months Results * Vitamin B12 (10/25/2024 9:30 AM EDT) Vitamin B12 475 232 - 1,245 pg/mL [facility] 10/25/2024 9:30 AM EDT 10/25/2024 Narrative [facility] - 10/26/2024 8:07 AM EDT Performed at: 01 - [facility] [place] [address] Welfare Manager: Donnie Hart PhD, Phone: [phone] us Jose Ortega MD LAB BLOOD ORDERABLES Final Res ult [facility] from Last 3 Months [place] [id number] BLUE CROSS/BLUE SHIELD Advance Directives For more information, please contact: [phone] Documents on File Type Date Recorded Patient 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
--- OUTSIDE RECORDS SUMMARY | 2025-01-03 14:45 | XMS_ITS | Clinical Summary ---
Author Organization [facility] Address [address] [place] [address] Care Team Providers Care Manager Food Name Role Phone Omar De La Torre MD Primary Care Provider [phone] Allergies Active Allergy Reactions Criticality Noted Date Comments Cephalexin Other - please document in the comment field,Rash,Unknown - Patient states they do not know rxn details High 12/27/2009 serum sickness Keflex Morphine Other - please document in the comment field Low 12/27/2009 morphine sulfate Morphine And Codeine Itching,Unknown - Patient states they do not know rxn details High 12/27/2009 Penicillins Rash,Unknown - Patient states they do not know rxn details,Other - please document in the comment field High 12/27/2009 Product containing penicillin (product) Medications * This document contains information received from the source organization and may not represent a complete record from that organization. ascorbic acid (Vitamin C) 500 MG tablet Take 2 tablets by mouth daily. Active cholecalciferol (Vitamin D-3) 10 MCG (400 UNIT) tablet Take 1 tablet by mouth daily. Active DULoxetine (Cymbalta) [address] capsule Take 1 capsule by mouth 2 times a day. Do not crush or chew. Active LORazepam (Ativan) 1 MG tablet Take 1 tablet by mouth 4 times a day as needed. Active OXcarbazepine (Trileptal) 300 MG tablet Take 1 tablet by mouth 2 times a day. Active zolpidem (Ambien) 10 MG tablet Take by mouth at night if needed for sleep. Active lamoTRIgine (LaMICtal) 200 MG tablet Take 1 tablet by mouth 2 times a day. Active Multiple Vitamins-Minerals (EQL Century Mature Women 50+) tablet Take 1 tablet by mouth 1 (one) time each day. Active gabapentin (Neurontin) 300 MG capsule Take 1 capsule (300 mg total) by mouth 3 (three) times a day. 30 capsule 02/22/20 Active Additional Information Patient not taking.Reported on 10/28/2024 carvedilol (Coreg) 3.125 MG tablet Take 1 tablet (3.125 mg total) by mouth 2 (two) times a day with meals. 60 tablet 11 02/22/20 21 Active ferrous sulfate 324 (65 Fe) MG EC tablet Take 1 tablet (324 mg total) by mouth 1 (one) time each day. Do not crush, chew, or split. 30 tablet 1 02/23/20 Active Additional Information Patient not taking.Reported on 09/08/2024 promethazine (Phenergan) 12.5 MG tabletIndications: Right wrist pain TAKE ONE TABLET BY MOUTH EVERY 6 HOURS NEEDED FOR NAUSEA OR vomiting MAY CAUSE DROWSINESS 8 tablet 03/05/20 22 Active ibandronate (Boniva) 150 MG tablet TAKE ONE TABLET BY MOUTH ONCE a MONTH (take ON an EMPTY stomach, 1 hour prior TO eating drinking) take with water 09/18/19 23 Active cyanocobalamin (Vitamin B-12) 1000 MCG/ML injection every 30 (thirty) days. 10/21/19 24 Active Qulipta 60 MG tablet Take 60 mg by mouth daily. 09/12/19 24 Active clindamycin (Cleocin) 300 MG capsule TAKE ONE CAPSULE BY MOUTH THREE TIMES DAILY FOR 10 DAYS -- FINISH ALL MEDICINE -- Active furosemide (Lasix) 40 MG tablet TAKE ONE TABLET BY MOUTH EVERY MORNING NEEDED FOR EDEMA 05/20/20 23 Active ciprofloxacin (Ciloxan) 0.3 % ophthalmic solution instill 1 DROP into affected eye(s) FOUR TIMES DAILY UNTIL CLEAR Active ciprofloxacin (Cipro) 250 MG tablet TAKE ONE TABLET BY MOUTH TWICE DAILY FOR 3 DAYS -- FINISH ALL MEDICINE -- Active HYDROcodone-acetam inophen (Baker) 7.5-325 MG tablet TAKE ONE TABLET BY MOUTH EVERY 6 HOURS NEEDED MAY CAUSE DROWSINESS Active ibuprofen 800 MG tablet TAKE ONE TABLET BY MOUTH EVERY 6 HOURS NEEDED FOR mild pain --TAKE WITH FOOD-- Active ibuprofen 600 MG tablet TAKE ONE TABLET BY MOUTH EVERY 6 HOURS NEEDED --TAKE WITH FOOD-- Active Multiple Vitamin (Multi-Vitamin) tablet Take 1 tablet by mouth 1 (one) time each day. Active Na Sulfate-K Sulfate-Mg Sulf 17.5-3.13-1.6 GM/177ML solution dilute; drink full AMOUNT early evening BEFORE procedure AND NEXT morning AT least 2 hours BEFORE procedure; FOLLOWING with 960 ML of water. Active naloxone (Narcan) 4 mg/0.1 mL nasal spray --do not prime-- SPRAY 1 SPRAY in 1 nostril DIRECTED NEEDED FOR oversedation Active nitrofurantoin, macrocrystal-monoh ydrate, (Macrobid) 100 MG capsule TAKE ONE CAPSULE BY MOUTH TWICE DAILY FOR 5 DAYS -- FINISH ALL MEDICINE -- --TAKE WITH A MEAL/FOOD-- Active ondansetron ODT (Zofran-ODT) 4 MG disintegrating tablet Take 1 tablet (4 mg) by mouth every 8 hours as needed. Active ondansetron (Zofran) 4 MG tablet Active Ubrelvy 100 MG tablet Take 1 tablet (100 mg) by mouth 1 (one) time as needed. 11/26/19 24 Active triazolam (Halcion) 0.25 MG tablet TAKE TWO TABLETS BY MOUTH 1 HOUR PRIOR TO DENTAL APPOINTMENT. DO NOT DRIVE WHILE TAKING MAY CAUSE DROWSINESS Active tiZANidine (Zanaflex) 4 MG tablet TAKE ONE TABLET BY MOUTH TWICE DAILY MAY CAUSE DROWSINESS Active B-D 3CC LUER-NGOZI SYR 25GX1 25G X 1 3 ML misc USE TO inject B12 11/26/19 24 Active sulfamethoxazole-t rimethoprim (Bactrim DS) 800-160 MG tablet TAKE ONE TABLET BY MOUTH TWICE DAILY -- FINISH ALL MEDICINE -- Active Nurtec 75 MG tablet dispersible Dissolve 1 tablet on the tongue nightly. prn Active potassium chloride CR (Klor-Con M20) 20 MEQ ER tablet TAKE ONE TABLET BY MOUTH EVERY DAY with furosemide Active Semaglutide (OZEMPIC, 0.25 OR 0.5 MG/DOSE, SC) Inject 0.5 mg under the skin 1 (one) time per week. Active UNABLE TO FIND Med Name: Pain pump, with hydromorphone/bu pivacaine Active traMADol (Ultram) 50 MG tablet Take 1 tablet by mouth every 6 hours as needed for severe pain. 5 tablet 11/11/19 25 Active famotidine (Pepcid) 20 MG tablet Take 1 tablet by mouth nightly. Active doxycycline (Vibramycin) 100 MG capsule TAKE ONE CAPSULE BY MOUTH TWICE DAILY FOR 10 DAYS -- FINISH ALL MEDICINE -- Active Active Problems Problem Noted Date Diagnosed Date Scar contracture 08/19/2024 Wrist pain, left 11/13/2021 Overview (11/13/2021): Added automatically from request for surgery [id number] Depression with anxiety 02/13/2021 Generalized OA 02/13/2021 HTN (hypertension) 02/13/2021 Insomnia 02/13/2021 Obesity 02/13/2021 Hematoma of left hip 02/13/2021 Acetabular labrum tear, left, sequela 01/18/2021 Lumbar radiculopathy 05/01/2020 Hip pain 04/18/2020 Iron deficiency anemia 09/29/2016 Status post bariatric surgery 09/29/2016 Spondylolisthesis 03/13/2015 Physical deconditioning Encounters Date Type Department Care Team Description 11/25/2024 2:00 PM EDT Office Visit [facility] Surgery [address] [place] [address] João Reyes MD Scar contracture (Primary Dx) 11/25/2024 Travel 11/25/2024 Telephone [facility] [address] [place] [address] João Reyes MD HCN - Patient Message 11/10/2024 10:35 AM EDT Anesthesia Event [facility] [address] [place] [phone] Florian Gamez MD Wellman, Tyler M, CRNA 11/10/2024 9:45 AM EDT - 11/10/2024 10:45 AM EDT Surgery [facility] [address] [place] [phone] João Reyes MD Excision of anterior neck scar with z plasty [54262 (CPT )] 11/10/2024 7:54 AM EDT - 11/10/2024 12:28 PM EDT Hospital Encounter [facility] [address] [place] [address] João Reyes MD Scar contracture (Primary Dx) Discharge Disposition: Home or Self Care 11/10/2024 Travel from Last 3 Months Family History Medical History Relation Name Comments Heart Problem Brother Heart disease Brother Arthritis Mother Diabetes Mother Hypertension Mother Aneurysm Other 1 Diabetes Other 2 Conversions - Other Other 3 Heart tr ouble Aneurysm Sister Relation Name Status Comments Brother Father Mother Other 1 Other 2 Other 3 Sister Social History Tobacco Use Types Packs/Day Years [...] on file Sexual Orientation Not on file Last Filed Vital Signs Vital Sign Reading Time Taken Comments Blood Pressure 120/66 11/25/2024 2:30 PM EDT Pulse 66 11/25/2024 2:30 PM EDT Temperature 36.5 C (97.7 F) 11/10/2024 11:45 AM EDT Respiratory Rate 14 11/10/2024 11:55 AM EDT Oxygen Saturation 97% 11/25/2024 2:30 PM EDT Inhaled Oxygen Concentration - - Weight 97.1 kg (214 lb) 11/25/2024 2:30 PM EDT Height 170.2 cm (5' 7 ) 11/10/2024 8:15 AM EDT Body Mass Index 33.52 11/10/2024 8:15 AM EDT Plan of Treatment Upcoming Encounters Date Type Department Care Team (Late st Contact Info) Description 01/11/2025 3:10 PM EDT Office Visit [facility] [address] [place] [address] João Reyes MD [address] [phone] Health Maintenance Due Date Last Done Comments [facility]-Infant/Child/Adol SDOH Screenings 1960 [facility]- SDOH Screenings 1978 [facility]-Adult SDOH Screenings 1978 [facility]-DTaP,Tdap,and Td Vaccines (1 - Tdap) 1979 CT Colonography 2005 Colonoscopy 2005 FIT-DNA 2005 FIT 2005 FOBT 2005 Sigmoidoscopy 2005 [facility]-Colorectal Cancer Screening 2005 [facility]-Breast Cancer Screening 2010 [facility]-Pneumococcal Vaccine: 50+ Years (1 of 1 - PCV) 2010 [facility]-Zoster Vaccines (1 of 2) 2010 [id number] Vaccine ( - season) 2024 08/22/2020, 07/11/2020 [facility]-Depression Screening 12/01/2024 12/02/2023 [facility]-Influenza Vaccine (Season Ended) 2025 [facility]-RSV Vaccine: 60+ Years or (1 - 1-dose 75+ series) 2035 [facility]-HIV Screening Completed 02/12/2021 [facility]-Hepatitis C Screening Completed 02/12/2021 [facility]-Diabetes: Hemoglobin A1C Discontinued 02/14/2021 [facility]-Obesity Intervention Completed 025, 08/19/2024, 12/02/2023, Additional history exists HPV Vaccines Aged Out No longer eligi ble based on patient's age to complete this topic [facility]-HIB Vaccines Aged Out No longer e ligible based on patient's age to complete this topic [facility]-Hepatitis A Vaccines Aged Out No longer eligible based on patient's age to complete this topic [facility]-IPV Vaccines Aged Out No longer e ligible based on patient's age to complete this topic [facility]-Rotavirus Vaccines Aged Out No lo nger eligible based on patient's age to complete this topic Goals Goal Patient Goal Type Associated Problems Recent Progress Patient-Stated? Author Patient will verbalize understanding of orthotic wear , care and precautions. Occupational Therapy No Johanne Woodall Medical Devices Implanted Type Area Chief Lock Operator Device Identifier Shelf Expiration Date Model / Serial / Lot Pain Pump Pain Pump N/A: Back Procedures Procedure Name Priority Date/Time Associated Diagnosis Comments POCT GLUCOSE METER UNSOLICITED RESULTS Routine 11/10/2024 11:29 AM EDT PB ANESTHESIA PLACEHOLDER Routine 11/10/2024 10:43 AM EDT NM AN ELECTIVE ENDOTRACHEAL AIRWAY Routine 11/10/2024 10:43 AM EDT NM WND PREP,PED, FACE/NCK/HND/FT/GEN ADD 100 CM 11/10/2024 10:30 AM EDT Scar contracture POCT GLUCOSE METER UNSOLICITED RESULTS Routine 11/10/2024 9:06 AM EDT HEMOGLOBIN A1C Routine 02/14/2021 3:25 AM EDT HEPATITIS C ANTIBODY - ED W/REFLEX TO HCV QUANT PCR STAT 02/12/2021 8:20 PM EDT HIV 1/2 ANTIBODY/ANTIGEN SCREEN WITH REFLEX TO HIV I/II DIFFERENTIATION STAT 02/12/2021 8:20 PM EDT from Last 3 Months or Most Recently Relevant to Health Maintenance Results * POCT glucose meter (11/10/2024 11:29 AM EDT) Only the most recent of2 resultswithin the time period is included. POCT Glucose 95 74 - 99 mg/dL 11/10/2024 12:13 PM EDT [facility] Comment:Accuracy of a glucos e result [...] for testing. Comment 11/10/2024 12:13 PM EDT [facility] Bradley Linebacker Crewmember ID Lucie Martinez Bam 11/11/19 12:13 PM EDT [facility] Device ID [id number] 11/10/2024 12:13 PM EDT [facility] Specimen Type POC Capillary 11/10/2024 12:13 PM EDT [facility] Blood Capillary blood specimen / Unknown 11/10/2024 11:29 AM EDT 11/10/2024 12:13 PM EDT us João Reyes MD LAB POINT OF CARE TE ST DOCKED DEVICE UNSOLICITED RESULTS Final Result Performing Organization Address City/State/[facility] Co de Phone Number HEALTHCARE [facility] [address] [place] [phone] * NM AN ELECTIVE ENDOTRACHEAL AIRWAY, PB ANESTHESIA PLACEHOLDER (11/10/2024 10:43 AM EDT) Narrative Sean Edge CRNA - 11/10/2024 10:43 AM EDT Sean Edge CRNA 11/10/2024 11:03 AM Airway Date/Time: 11/10/2024 10:43 AM Reason: elective Airway not difficult General Information and Staff Patient location during procedure: OR GATE OPERATOR: Sean Edge CRNA Performed: GUADALUPE Patient Condition Indications for airway management: anesthesia [...] Gamez MD ANESTHESIA ORDERABLES Fin al Result * Hemoglobin A1c (02/14/2021 3:25 AM EDT) Hemoglobin A1c 5.3 <5.7 % 02/14/2021 5:14 AM EDT [facility] Blood Venous blood specimen / Unknown Venipuncture / Unknown 02/14/2021 3:25 AM EDT 02/14/2021 4:15 AM EDT Narrative [facility] - 02/14/2021 5:14 AM EDT HA1C Interpretive Data: Diagnosis of Diabetes: Diabetic > or = 6.5% Pre-diabetic 5.7 to 6.4% Non-diabetic < or = 5.6% Glycemic Targets for Type I and Type II Diabetics: Non- Adults <7.0% Adults <6.0% Children and Adolescents <7.5% Source: [place] [employer]. Standards of medical care in diabetes,2017. Diabetes Care.2017:40 (suppl 1):S1-S135. HbA1c assay performed by an ion-exchange chromatography method that is certified traceable to the DCCT. Liana FELICIANO LAB BLOOD ORDERABLES Final R esult Performing Organization Address City/[facility] Co de Phone Number [facility] [address] [place] [address] * HIV 1 & 2 Antibody/Antigen Screen (02/12/2021 8:20 PM EDT) HIV 1 & 2 Antibody/Anti gen Screen Nonreactive Nonreactive 02/12/2021 10:17 PM EDT [facility]ALTH[facility]ARE [facility] Blood Venous blood specimen / Unknown Venipuncture / Unknown 02/12/2021 8:20 PM EDT 02/12/2021 8:34 PM EDT Joanne Umaña MD LAB BLOOD ORDERABLES Final Res ult Performing Organization Address [facility] Co de Phone Number [facility] [address] [place] [address] * [place] Hepatitis C Antibody (02/12/2021 8:20 PM EDT) Hepatitis C Antibody Negative Negative 02/12/2021 10:17 PM EDT [facility] Blood Venous blood specimen / Unknown Venipuncture / Unknown 02/12/2021 8:20 PM EDT 02/12/2021 8:34 PM EDT Joanne Umaña MD LAB BLOOD ORDERABLES Final Res ult Performing Organization Address City/[facility] Co de Phone Number [facility] [address] [place] [address] from Last 3 Months or Most Recently Relevant to Health Maintenance Insurance ANTHEM Advance Directives * Full Code (Latest Code Status on File) Date Activated Date Inactivated Comments 02/13/2021 4:57 AM 02/21/2021 4:22 PM Question Answer Comments Patient has decision-making capacity? Yes * Full Code Date Activated Date Inactivated Comments 01/18/2021 4:57 PM 02/05/2021 4:59 PM Question Answer Comments Patient has decision-making capacity? Yes Care Teams Manager Food Relationship Specialty Start Date End Date Omar De La Torre MD [address] [facility] [address] [place] [address] PCP - General 11/24/20
--- OUTSIDE RECORDS SUMMARY | 2025-01-03 14:45 | XMS_ITS | Encounter Summary ---
Author Organization [facility] Address [address] [place] [address] Care Team Providers Care Slip Bridge Operator Name Role Phone Omar De La Torre MD Primary Care Provider [phone] Encounter Details Date Type Department Care Team (Latest Contact Info) Description 11/25/2024 Travel Social History Tobacco Use Types Packs/Day [...] PM EDT Office Visit [facility] [address] [place] [address] João Reyes MD [address] [phone] documented as of this encounter Goals Goal [...] documented as of this encounter Care Teams Slip Bridge Operator Relationship Specialty Start Date End Date Omar De La Torre MD [facility] [address] [place] [address] PCP - General 11/24/20 documented as of this encounter
--- OUTSIDE RECORDS SUMMARY | 2025-01-03 14:45 | XMS_ITS | Encounter Summary ---
Author Organization Healthcare Address [address] [place] [address] Care Team Providers Care Bioinformatics Software Engineer Name Role Phone Omar De La Torre MD Primary Care Provider [phone] Reason for Visit * Reason Onset Date Comments HCN - Rx Refill Request 10/05/2021 Encounter Details Date Type Department Care Team (Late st Contact Info) Description 10/05/2021 Telephone [facility] [address] [place] [address] João Reyes MD [address] [address] HCN - Rx Refill Request Social History Tobacco Use Types Packs/Day Years [...] have Coronavirus / COVID-19? No / Unsure 09/11/2021 10:39 AM EST documented as of this encounter Functional Status [...] Telephone Encounter - Amarilis Blandon RN - 10/05/2021 5:08 PM EDT Med requested. * Telephone Encounter - Marisa Ordonez - 10/05/2021 4:09 PM EDT Medication Refill Request Medication Name & Dosage: Oxycodone Preferred Pharmacy & Location[facility] Days of medication remaining (if under 3 days please sandra as urgent): 0 Best contact number and optimal time of day to reach caller: [phone] Additional comments/information from caller: Note: Please do not reply to this message. Follow-up communication and further actions as a result of this message need to be communicated with the patient directly, if the patient is not active onMyChart. If the patient is active on MyChart, they will receive notification of the communication/outcome via Pingboard. documented in this encounter Plan of Treatment Upcoming Encounters Date Type Department Care Team (Late st Contact Info) Description 01/11/2025 3:10 PM EDT Office Visit [facility] [address] [place] [address] João Reyes MD [address] [address] documented as of this encounter Visit Diagnoses Not on filedocumented in this encounter Additional Health Concerns Assessment Noted Time A fall risk assessment has been complete d for the patient 09/11/2021 10:48 AM EST documented as of this encounter Care Teams Bioinformatics Software Engineer Relationship Specialty Start Date End Date Omar De La Torre MD [address] [facility] [address] [place], [place] [id number] PCP - General 11/24/20 documented as of this encounter
--- OUTSIDE RECORDS SUMMARY | 2025-01-03 14:45 | XMS_ITS | Encounter Summary ---
Author Organization [facility] Address [address] [place] [address] Care Team Providers Care Final Finisher Name Role Phone Omar De La Torre MD Primary Care Provider [phone] Reason for Visit * Reason Onset Date Comments HCN - Patient Message 11/25/2024 Encounter Details Date Type Department Care Team (Late st Contact Info) Description 11/25/2024 Telephone [facility] [address] [place] [address] João Reyes MD [address] [address] HCN - Patient Message Social History Tobacco Use Types Packs/Day Years [...] encounter Miscellaneous Notes * Telephone Encounter - Danielle Wang RN - 11/25/2024 1:26 PM EDT Called pt back * Telephone Encounter - Mason Page - 11/25/2024 12:13 PM EDT Clinical Concern/Question Reason for Call: Amy patient is asking to speak with Danielle, says Danielle will know what call is about when she sees her name. Best contact number: [phone] (home) Optimal time of day to reach caller: ANYTIME Additional comments/information from caller: None Note: Please do not reply to this message. Follow-up communication and further actions as a result of this message need to be communicated with the patient directly, if the patient is not active onMyChart. If the patient is active on MyChart, they will receive notification of the communication/outcome via MyChart. documented in this encounter Plan of Treatment Upcoming Encounters Date Type Department Care Team (Late st Contact Info) Description 01/11/2025 3:10 PM EDT Office Visit [facility] [address] [place] [address] João Reyes MD [address] [place] [address] documented as of this encounter Goals Goal [...] documented as of this encounter Care Teams Final Finisher Relationship Specialty Start Date End Date Omar De La Torre MD [address] [facility] [address] [place] [address] PCP - General 11/24/20 documented as of this encounter
--- OUTSIDE RECORDS SUMMARY | 2025-01-03 14:45 | XMS_ITS | Encounter Summary ---
Author Organization Healthcare Address [address] [place] [address] Care Team Providers Care Wildlife Officer Name Role Phone Omar De La Torre MD Primary Care Provider [phone] Encounter Details Date Type Department Care Team (Late st Contact Info) Description 09/26/2021 Lab Requisition [facility] [address] [place] [address] João Reyes MD [address] [address] Benign neoplasm of other specified sites Social History Tobacco Use Types Packs/Day Years [...] Description 01/11/2025 3:10 PM EDT Office Visit [facility] [address] [place] [address] João Reyes MD [address] [address] documented as of this encounter Procedures Procedure Name Priority Date/Time Associated Diagnosis Comments SURGICAL PATHOLOGY EXAM Routine 09/26/2021 Benign neoplasm of other specified sites documented in this encounter Results * Surgical Pathology Exam (09/26/2021) Case Report Surgical Pathology Case: [id number] Authorizing Provider: João Reyes MD Collected: 09/26/2021 Ordering Location: [facility] Lab Received: 09/26/2021 1239 Pathologist: Komal Negron MD Specimen: Wrist, Right, Right wrist neuroma 09/27/2021 11:40 AM EDT [facility] Final Diagnosis A. SOFT TISSUE MASS, RIGHT WRIST, EXCISION: - NEUROMA. 09/27/2021 11:40 AM EDT HEALTHCARE LAB at 1140 EDT Clinical Information Right wrist hardware failure, right wrist neuroma 09/27/2021 11:40 AM EDT [facility] Gross Description A. RIGHT WRIST NEUROMA The specimen is received in formalin labeled right wrist neuroma , and consists of a 2.5 x 0.6 x 0.5 cm pink-harding fibrous tissue fragment. Entirely submitted in cassette A1. Kimberly Sterlinge 09/27/2021 11:40 AM EDT [facility]ARE [facility] Tissue Structure of right wrist region / Unknown 09/26/2021 09/26/2021 12:39 PM EDT João Reyes MD LAB PATHOLOGY ORDERABLES Alisha boone Result Performing Organization Address City/State/[facility] Co de Phone Number HEALTHCARE LAB [address] [place] [phone] documented in this encounter Visit Diagnoses Diagnosis Benign neoplasm of other specified sites documented in this encounter Additional Health Concerns Assessment Noted Time A fall risk assessment has been complete d for the patient 09/11/2021 10:48 AM EST documented as of this encounter Care Teams Wildlife Officer Relationship Specialty Start Date End Date Omar De La Torre MD [address] [place] [address] [address] [place] [address] PCP - General 11/24/20 documented as of this encounter
--- NOTE | 2025-01-03 14:52 | XR_ITS ---
FINAL REPORT CLINICAL HISTORY: Fall on Friday. Right hip pain. FINDINGS: Three views of the right hip/pelvis demonstrate no acute fracture or dislocation. There are postoperative changes of the left hip with ORIF changes of the left bony pelvis. IMPRESSION: No acute process of the right hip. Reviewed, Interpreted and Dictated by Herbert Jeronimo MD Transcribed by Miladys Uribe Authenticated and [facility]
== END 2025-01-03 23:59 | disposition home or self-care (01) ==
LOC: RAD 14:42
PROVIDERS: PCP Internal Medicine; Visit Provider Internal Medicine
DX: M25.551 Pain in right hip (principal); W19.XXXA Unspecified fall, initial encounter
CPT/HCPCS: 73502

== ENCOUNTER 2025-01-18 11:07 | Outpatient (CLI) | payer BC, SELFPAY ==
--- OUTSIDE RECORDS SUMMARY | 2024-11-25 14:00 | XMS_ITS | Encounter Summary ---
Author Organization [facility] Address [address] [place] [address] Care Team Providers Care Dye Tub Tender Name Role Phone Omar De La Torre MD Primary Care Provider [phone] Reason for Visit * Consultation (Routine) - Closed Specialty Diagnoses / Procedures Referred By Contac t Referred To Contact Plastic Surgery Diagnoses Scar contracture João Reyes MD [address] [address] Phone: tel: fax: Referral ID Status Reason Start Date Expiration Date V isits Requested Visits Authorized [id number] Closed Specialty Services Required 11/10/2024 05/12/2026 1 1 Encounter Details Date Type Department Care Team (Late st Contact Info) Description 11/25/2024 2:00 PM EDT Office Visit [facility] Plastic & Reconstructive Surgery [address] [place] [address] João Reyes MD [address] [address] Scar contracture (Primary Dx) Social [...] documented in this encounter Plan of Treatment Not on file documented as of this encounter Goals Goal [...] documented as of this encounter Care Teams Dye Tub Tender Relationship Specialty Start Date End Date Omar De La Torre MD [address] [place] [address] [address] [place] [address] PCP - General 11/24/20 documented as of this encounter
--- OUTSIDE RECORDS SUMMARY | 2025-01-18 11:10 | XMS_ITS | Clinical Summary ---
Author Organization [employer] ([place], [place], [place], [place]) Address [address] [place] [address] Care Team Providers Care Medium Cycle Salesperson Name Role Phone Omar De La Torre MD Primary Care Provider [phone] Allergies Active Allergy Reactions Criticality Noted Date [...] Type Department Care Team Description 11/05/2024 Abstract [facility] Neurology - [address] [place] [address] Jose Ortega MD 10/25/2024 9:00 AM EDT Office Visit [facility] Neurology - [address] [place] [address] Jose Ortega MD Weakness (Primary Dx); Migraine without aura and without status migrainosus, not intractable; Idiopathic peripheral neuropathy; B12 deficiency 10/25/2024 Travel from Last 3 Months Social History Tobacco [...] Visit [facility] Neurology - [place] [facility] [place] [address] [place] [phone] Jose Ortega MD [facility] [address] [place], [place] [id number] Health Maintenance Due Date Last Done Comments CT Colonography 1960 Colonoscopy 1960 Colorectal Cancer Screening 1960 FOBT/FIT 1960 Fit-DNA (Cologuard) 1960 Sigmoidoscopy 1960 HIV Screening 1975 Hepatitis C Screening 1978 DTAP/TDAP/TD VACCINES (1 - Tdap) 1979 Pneumococcal 50+ years (1 of 2 - PCV) 1979 Pap Smear 1981 Breast Cancer Screening 2000 Lipid Panel 2005 Shingles Vaccine (Zoster) (1 of 2) 2010 Respiratory Syncytial Virus (RSV) Adult or (1 - Risk 60-74 years 1-dose series) 2020 COVID-19 VACCINE ( season) 03/14/202403/2021, 07/11/2020 Influenza Vaccine (#1) 2025 Tobacco Cessation Counseling and Screening (12+) 10/25/2025 10/25/2024 Medical Devices Implanted Type Area Paper Sample Clerk Device Identifier Shelf Expiration Date Model / Serial / Lot Bone Vivigen Formable Bl-1600-001 - [id number] Implanted:Qty : 1 on 10/30/2022 by Duane Friedman MD at [facility] IMPLANTS N/A: Spine Cervical LIFENET:LIFENET TRANSPLANT SRV 10/11/2023 BL-1600-0 01 / [id number] / Cage Eit Cif H 5mm 8d S [id number] - [id number] Implanted:Qty : 1 on 10/30/2022 by Duane Friedman MD at [facility] IMPLANTS N/A: Spine Cervical J &J:DEPUY:DEPUY SPINE 01/10/2026 [id number] / / [id number] Cage Eit Cif H 5mm 8d S [id number] - [id number] Implanted:Qty : 1 on 10/30/2022 by Duane Friedman MD at [facility] IMPLANTS N/A: Spine Cervical J &J:DEPUY:DEPUY SPINE 07/13/2023 [id number] / / [id number] Cage Eit Cif H 5mm 8d S [id number] - [id number] Implanted:Qty : 1 on 10/30/2022 by Duane Friedman MD at [facility] IMPLANTS N/A: Spine Cervical J &J:DEPUY:DEPUY SPINE 01/10/2026 [id number] / / [id number] Plt Ant Skyln Hybrd Lvl3 45mm 1867-09-045 - [id number] Implanted:Qty : 1 on 10/30/2022 by Duane Friedman MD at [facility] IMPLANTS N/A: Neck J &J:DEPUY:DEPUY SPINE 0 45 / 45 / Scr Skyln Vari Sd 18mm 1868-50-018 - [id number] Implanted:Qty : 8 on 10/30/2022 by Duane Friedman MD at [facility] IMPLANTS N/A: Neck J &J:DEPUY:DEPUY SPINE 0 [...] AM EDT Performed at: 01 - [facility] [place] [address] Firefighter Type One: Donnie Hart PhD, Phone: [phone] us Jose Ortega MD LAB BLOOD ORDERABLES Final Res ult [facility] from Last 3 Months Insurance BLUE CROSS/BLUE SHIELD Advance Directives For more information, please contact: [phone] Documents on File Type Date Recorded Patient Environmental Education Specialist Expl anation Advance Directives and Aziza g Will 10/30/2022 6:04 AM * Full Code (Latest Code Status on File) Date Activated Date Inactivated Comments 10/30/2022 10:48 AM 11/04/2022 1:55 PM Care Teams Medium Cycle Salesperson Relationship Specialty Start Date End Date Omar De La Torre MD [address] [place] [address] PCP - General General Internal Medicine 10/16/22
--- OUTSIDE RECORDS SUMMARY | 2025-01-18 11:10 | XMS_ITS | Referral Summary ---
Author Organization [employer] ([place], [place], [place], [place]) Address [address] [place] [address] Care Team Providers Care Contracting Manager Name Role Phone Omar De La Torre MD Primary Care Provider [phone] Encounters Date Type Department Care Team Description 11/05/2024 Abstract [facility] Neurology - [employer] [facility] [address] [address] Jose Ortega MD 10/25/2024 Travel 10/25/2024 9:00 AM EDT Office Visit [facility]rology - [employer] [facility] [employer] [address] [address] Jose Ortega MD Weakness (Primary Dx); Migraine without aura and without status migrainosus, not intractable; Idiopathic peripheral neuropathy; B12 deficiency from Last 3 Months Allergies Active Allergy [...] Date Wild rded Speak language other than Micronesian at home Not on file 08/01/2023 Want [...] Description 02/23/2025 10:00 AM EDT Office Visit [facility] Neurology - [address] [phone] Jose Ortega MD [address] [place] [id number] Medical Devices Implanted Type Area Bar Steward Device Identifier Shelf Expiration Date Model / Serial / Lot Bone Vivigen Formable Sm Bl-1600-001 - [id number] Implanted:Qty : 1 on 10/30/2022 by Duane Friedman MD at [facility] IMPLANTS N/A: Spine Cervical LIFENET:LIFENET TRANSPLANT SRV 10/11/2023 BL-1600-0 / [id number] / Cage Eit Cif H 5mm 8d S [id number] - [id number] Implanted:Qty : 1 on 10/30/2022 by Duane Friedman MD at [facility] IMPLANTS N/A: Spine Cervical J &J:DEPUY:DEPUY SPINE 01/10/2026 [id number] / / [id number] Cage Eit Cif H 5mm 8d S [id number] - [id number] Implanted:Qty : 1 on 10/30/2022 by Duane Friedman MD at [facility] IMPLANTS N/A: Spine Cervical J &J:DEPUY:DEPUY SPINE 07/13/2023 [id number] / / [id number] Cage Eit Cif H 5mm 8d S [id number] - [id number] Implanted:Qty : 1 on 10/30/2022 by Duane Friedman MD at [facility] IMPLANTS N/A: Spine Cervical J &J:DEPUY:DEPUY SPINE 01/10/2026 [id number] / / [id number] Plt Ant Skyln Hybrd Lvl3 45mm 8-03-045 - [id number] Implanted:Qty : 1 on 10/30/2022 by Duane Friedman MD at [facility] IMPLANTS N/A: Neck J &J:DEPUY:DEPUY SPINE 1868-03-0 45 / 1868-03-0 45 / Scr Skyln Vari Sd 18mm 1867-50-018 - [id number] Implanted:Qty : 8 on 10/30/2022 by Duane Friedman MD at [facility] IMPLANTS N/A: Neck J &J:DEPUY:DEPUY SPINE 1868-50-0 18 / 1868-50-0 18 / Procedures Procedure Name Priority Date/Time Associated Diagnosis Comments VITAMIN B12 Routine 10/25/2024 9:30 AM EDT B12 deficiency from Last 3 Months Results * Vitamin B12 (10/25/2024 9:30 AM EDT) [facility] Vitamin B12 475 232 - 1,245 pg/mL [facility] 10/25/2024 9:30 AM EDT 10/25/2024 [facility] - 10/26/2024 8:07 AM EDT Performed at: 01 - [facility] [address] [id number] Statistics Teacher: Donnie Hart PhD, Phone: [phone] us Jose Ortega MD LAB BLOOD ORDERABLES Final Res ult [facility] from Last 3 Months Insurance BLUE CROSS/BLUE SHIELD Advance Directives For more information, please contact: [phone] Documents on File Type Date Recorded Patient Trapper Animal Expl anation Advance Directives and Livin g Will 10/30/2022 6:04 AM * Full Code (Latest Code Status on File) Date Activated Date Inactivated Comments 10/30/2022 10:48 AM 11/04/2022 1:55 PM Care Teams Contracting Manager Relationship Specialty Start Date End Date Omar De La Torre MD [address] [place] [address] PCP - General General Internal Medicine 10/16/22
--- OUTSIDE RECORDS SUMMARY | 2025-01-18 11:10 | XMS_ITS | Clinical Summary ---
Author Organization [facility] Address [address] [facility] [address] [place] [address] Phone Care Team Providers Care Medical Assistant Supervisor Name Role Phone Unavailable Unavailable Conditions or Problems No information available. Medications No information available. Medications Administered No information available. Allergies, Adverse Reactions, Alerts No information available. Results No information available. Plan of Care No information available. Procedures No information available. Vital Signs No information available. Immunizations No information available. Advance Directives No information available.
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
--- OUTSIDE RECORDS SUMMARY | 2025-01-18 11:11 | XMS_ITS | Encounter Summary ---
Author Organization [facility] Address [address] [place] [address] Care Team Providers Care Hot Wort Settler Name Role Phone Omar De La Torre MD Primary Care Provider [phone] Encounter Details Date Type Department Care Team [...] documented as of this encounter Care Teams Hot Wort Settler Relationship Specialty Start Date End Date Omar De La Torre MD [address] [place] [address] [address] [place] [address] PCP - General 11/24/20 documented as of this encounter
--- OUTSIDE RECORDS SUMMARY | 2025-01-18 11:11 | XMS_ITS | Encounter Summary ---
Author Organization [facility] Address [address] [place] [address] Care Team Providers Care Bulk Sealer Operator Name Role Phone Omar De La Torre MD Primary Care Provider [phone] Reason for Visit * Reason Onset Date Comments Med Refill 05/07/2021 Encounter Details Date Type Department Care Team (Late st Contact Info) Description 05/07/2021 Refill [facility] [address] [place] [phone] João Reyes MD [address] [address] Social History Tobacco Use Types [...] optimal time of day to reach caller: [phone] Note: Please do not reply to this message. Follow-up communication and further actions as a result of this message need to be communicated with the patient directly, if the patient is not active onMyChart. If the patient is active on MyChart, they will receive notification of the communication/outcome via [employer]. documented in this encounter Plan of Treatment Not on file documented as of this encounter Visit Diagnoses Not on filedocumented in this encounter Additional Health Concerns Assessment Noted Time A fall risk assessment has been complete d for the patient 04/03/2021 11:28 AM EDT documented as of this encounter Care Teams Bulk Sealer Operator Relationship Specialty Start Date End Date Omar De La Torre MD [address] [place] [address] [address] [place] [address] PCP - General 11/24/20 documented as of this encounter
--- OUTSIDE RECORDS SUMMARY | 2025-01-18 11:11 | XMS_ITS | Encounter Summary ---
Author Organization [facility] Address [address] [place] [address] Care Team Providers Care Curb Worker Name Role Phone Omar De La Torre MD Primary Care Provider Reason for Visit * Reason Onset Date Comments [facility]CN - Rx Refill Request 10/05/2021 Encounter Details Date Type Department Care Team (Late st Contact Info) Description 10/05/2021 Telephone [facility] [address] [place] [address] João Reyes MD [address] [address] HCN - Rx Refill Request [...] Preferred Pharmacy & Location: the [facility] Days of medication remaining (if under 3 days please sandra as urgent): 0 Best contact number and optimal time of day to reach caller: [phone] Additional comments/information from caller: Note: Please do not reply to this message. Follow-up communication and further actions as a result of this message need to be communicated with the patient directly, if the patient is not active onMyChart. If the patient is active on MyChart, they will receive notification of the communication/outcome via [employer]. documented in this encounter Plan of Treatment Not on file documented as of this encounter Visit Diagnoses Not on filedocumented in this encounter Additional Health Concerns Assessment Noted Time A fall risk assessment has been complete d for the patient 09/11/2021 10:48 AM EST documented as of this encounter Care Teams Curb Worker Relationship Specialty Start Date End Date Omar De La Torre MD [address] [place] [address] [address] [place] [address] PCP - General 11/24/20 documented as of this encounter
--- OUTSIDE RECORDS SUMMARY | 2025-01-18 11:11 | XMS_ITS | Encounter Summary ---
Author Organization [employer] ([place], [place], [place], [place]) Address [address] [place] [address] Care Team Providers Care Document Review Specialist Name Role Phone Omar De La Torre MD Primary Care Provider Encounter Details Date Type Department Care Team (Late st Contact Info) Description 11/05/2024 Abstract [facility] Neurology - [address] [place] [address] [place] [address] Jose Ortega MD [facility] [address] [place] [address] Social History Tobacco Use Types [...] Date Wild rded Speak language other than Italian at home Not on file 08/01/2023 Want [...] Description 02/23/2025 10:00 AM EDT Office Visit [facility] Neurology - [address] [facility] [address] [place] [phone] Jose Ortega MD [address] [facility] [address] [place] [address] documented as of this encounter Visit Diagnoses Not on filedocumented in this encounter Care Teams Document Review Specialist Relationship Specialty Start Date End Date Omar De La Torre MD [address] [place] [address] PCP - General General Internal Medicine 10/16/22 documented as of this encounter
--- OUTSIDE RECORDS SUMMARY | 2025-01-18 11:11 | XMS_ITS | Clinical Summary ---
Author Organization [facility] Address [address] [place] [address] Care Team Providers Care Echo Vascular Tech Name Role Phone Omar De La Torre MD Primary Care Provider [phone] Allergies Active Allergy Reactions Criticality Noted Date [...] FINISH ALL MEDICINE -- Active HYDROcodone-acetam inophen ([place]) 7.5-325 MG tablet TAKE ONE TABLET BY [...] (11/13/2021): Added automatically from request for surgery [id number] Depression with anxiety 02/13/2021 Generalized OA 02/13/2021 HTN (hypertension) 02/13/2021 Insomnia 02/13/2021 Obesity 02/13/2021 Hematoma of left hip 02/13/2021 Acetabular labrum tear, left, sequela 01/18/2021 Lumbar radiculopathy 05/01/2020 Hip pain 04/18/2020 Iron deficiency anemia 09/29/2016 Status post bariatric surgery 09/29/2016 Spondylolisthesis 03/13/2015 Physical deconditioning Encounters Date Type Department Care Team Description 01/11/2025 Telephone [facility] [employer] [address] [place] [address] João Reyes MD 11/25/2024 2:00 PM EDT Office Visit [facility]astic [facility] Reconstructive Surgery [address] [place] [address] João Reyes MD Scar contracture (Primary Dx) 11/25/2024 Travel 11/25/2024 Telephone [facility] [employer] [address] [place] [address] João Reyes MD HCN - Patient Message 11/10/2024 10:35 AM EDT Anesthesia Event [facility] [address] [place] [address] Florian Gamez MD Wellman, Tyler M, GUAD[place] 11/10/2024 9:45 AM EDT - 11/10/2024 10:45 AM EDT Surgery [facility] [address] [place] [address] João Reyes MD Excision of anterior neck scar with z plasty [30863 (CPT )] 11/10/2024 7:54 AM EDT - 11/10/2024 12:28 PM EDT Hospital Encounter [facility] [address] [place] [address] João Reyes MD Scar contracture (Primary Dx) [...] 11/10/2024 8:15 AM EDT Plan of Treatment Health Maintenance Due Date Last Done Comments [facility]-/Child/Adol SDOH Screenings 1960 [facility]- SDOH Screenings 1978 [facility]-Adult SDOH Screenings 1978 [facility]-DTaP,Tdap,and Td Vaccines (1 - Tdap) 1979 CT Colonography 2005 Colonoscopy 2005 FIT-DNA 2005 FIT 2005 FOBT 2005 Sigmoidoscopy 2005 [facility]-Colorectal Cancer Screening 2005 [facility]-Breast Cancer Screening 2010 [facility]-Pneumococcal Vaccine: 50+ Years (1 of 1 - PCV) 2010 [facility]-Zoster Vaccines (1 of 2) 2010 [facility]-RSV Vaccine: 60+ Years or (1 - Risk 60-74 years 1-dose series) 2020 [id number] Vaccine (3 - Pfizer risk series) 09/19/2020 08/22/2020, 07/11/2020 [facility]-Depression Screening 12/01/2024 12/02/2023 [facility]-Influenza Vaccine (#1) 2025 [facility]-HIV Screening Completed 02/12/2021 [facility]-Hepatitis C Screening [...] care and precautions. Occupational Therapy Johanne Grimes Medical Devices Implanted Type Area Marketing Regional Consultant Device Identifier Shelf Expiration Date Model / Serial / Lot Pain Pump Pain Pump N/A: Back Procedures Procedure Name Priority Date/Time Associated Diagnosis Comments POCT GLUCOSE METER UNSOLICITED RESULTS Routine 11/10/2024 11:29 AM EDT PB ANESTHESIA PLACEHOLDER Routine 11/10/2024 10:43 AM EDT NC AN ELECTIVE ENDOTRACHEAL AIRWAY Routine 11/10/2024 10:43 AM EDT NC WND PREP,PED, FACE/NCK/HND/FT/GEN ADD 100 CM 11/10/2024 [...] - 99 mg/dL 11/10/2024 12:13 PM EDT [facility] Comment:Accuracy of a glucos e [...] 11/10/2024 12:13 PM EDT [facility] Micro Computer Data Processor ID Lucie Martinez 11/11/19 12:13 PM EDT [facility] Device ID [id number] 11/10/2024 12:13 PM EDT [facility] Specimen Type POC Capillary 11/10/2024 12:13 PM EDT HEALTHCARE LAB Blood Capillary blood specimen / Unknown 11/10/2024 11:29 AM EDT 11/10/2024 12:13 PM EDT us João Reyes MD LAB POINT OF CARE TE ST DOCKED DEVICE UNSOLICITED RESULTS Final Result [facility] [address] [place] [id number] * NC AN ELECTIVE ENDOTRACHEAL AIRWAY, PB ANESTHESIA PLACEHOLDER (11/10/2024 10:43 AM EDT) Narrative Sean Edge CRNA - 11/10/2024 10:43 AM EDT Sean Edge CRNA 11/10/2024 11:03 AM Airway Date/Time: 11/10/2024 10:43 AM Reason: elective Airway not difficult General Information and Staff Patient location during procedure: [place] STRAWHAT SIZER: Sean Edge CRNA Performed: [place] Patient Condition [...] Adults <6.0% Children and Adolescents <7.5% Source: [place] [employer]. Standards of medical care in diabetes,2017. Diabetes Care.2017:40 (suppl 1):S1-S135. HbA1c assay performed by an ion-exchange chromatography method that is certified traceable to the DCCT. Liana FELICIANO LAB BLOOD ORDERABLES Final R esult Performing Organization Address City/[facility] Co de Phone Number HEALTHCARE LAB [address] [place] [address] * HIV 1 & 2 Antibody/Antigen Screen (02/12/2021 8:20 PM EDT) Pathologist [facility] HIV 1 & 2 Antibody/Anti gen Screen Nonreactive Nonreactive 02/12/2021 10:17 PM EDT HEALTHCARE LAB Blood Venous blood specimen / Unknown Venipuncture / Unknown 02/12/2021 8:20 PM EDT 02/12/2021 8:34 PM EDT Joanne Umaña MD LAB BLOOD ORDERABLES Final Res ult Performing Organization Address City/[facility] Co de Phone Number HEALTHCARE LAB [address] [place] [address] * [place] Hepatitis C Antibody (02/12/2021 8:20 PM EDT) Pathologist [facility] Hepatitis C Antibody Negative Negative 02/12/2021 10:17 PM EDT HEALTHCARE LAB Blood Venous blood specimen / Unknown Venipuncture / Unknown 02/12/2021 8:20 PM EDT 02/12/2021 8:34 PM EDT Joanne Umaña MD LAB BLOOD ORDERABLES Final Res ult Performing Organization Address City/[facility] Co de Phone Number [facility] [address] [place] [address] from Last 3 Months or Most Recently [...] Patient has decision-making capacity? Yes Care Teams Echo Vascular Tech Relationship Specialty Start Date End Date Omar De La Torre MD [address] [facility] [address] [place] [address] PCP - General 11/24/20
--- OUTSIDE RECORDS SUMMARY | 2025-01-18 11:11 | XMS_ITS | Encounter Summary ---
Author Organization [facility] Address [address] [place] [address] Care Team Providers Care Guitar Maker Hand Name Role Phone Omar De La Torre MD Primary Care Provider [phone] Encounter Details Date Type Department Care Team (Late st Contact Info) Description 01/11/2025 Telephone [facility] [address] [place] [address] João Reyes MD [address] [address] Social History Tobacco Use Types [...] documented as of this encounter Care Teams Guitar Maker Hand Relationship Specialty Start Date End Date Omar De La Torre MD [address] [place] [address] [address] [place] [address] PCP - General 11/24/20 documented as of this encounter
--- OUTSIDE RECORDS SUMMARY | 2025-01-18 11:11 | XMS_ITS ---
Author Organization Unknown Medications Medication Instructions Effective Dates (start - stop) Status sulfamethoxazole 800 MG / trimethoprim 160 MG Oral Tablet 1749-60-58O53:00:00.00 0+00: 00 - Completed acetaminophen 325 MG / oxyco done hydrochloride 7.5 MG Oral Tablet 2604-05-27Q04:00:00.0 00+00: 00 - Completed acetaminophen 325 MG / hydro codone bitartrate 7.5 MG Oral Tablet 4278-74-74E78:00:00.000+ 00: 00 - Completed acetaminophen 325 MG / hydro codone bitartrate 7.5 MG Oral Tablet 8418-86-93Z87:00:00.000+ 00: 00 - Completed sulfamethoxazole 800 MG / trimethoprim 160 MG Oral Tablet 2038-67-05K76:00:00.00 0+00: 00 - Completed lorazepam 1 MG Oral Tablet :00:00.000+00: 00 - Completed lorazepam 1 MG Oral Tablet :00:00.000+00: 00 - Completed lorazepam 1 MG Oral Tablet :00:00.000+00: 00 - Completed lorazepam 1 MG Oral Tablet :00:00.000+00: 00 - Completed lorazepam 1 MG Oral Tablet :00:00.000+00: 00 - Completed duloxetine 60 MG Delayed Rel ease Oral Capsule 2097-24-66Y54:00:00.000+00: 00 - Completed lorazepam 1 MG Oral Tablet :00:00.000+00: 00 - Completed carvedilol 3.125 MG Oral Tablet 4470-83-90B30:00:00.000+00: 00 - Completed lorazepam 1 MG Oral Tablet :00:00.000+00: 00 - Completed duloxetine 60 MG Delayed Rel ease Oral Capsule 8191-75-81J87:00:00.000+00: 00 - Completed lorazepam 1 MG Oral Tablet :00:00.000+00: 00 - Completed lorazepam 1 MG Oral Tablet :00:00.000+00: 00 - Completed Microencapsulated potassium chloride 20 MEQ Extended Release Oral Tablet 2095-52-76C33:00:00.000+00: 00 - Completed duloxetine 60 MG Delayed Rel ease Oral Capsule 8949-13-51K20:00:00.000+00: 00 - Completed Microencapsulated potassium chloride 20 MEQ Extended Release Oral Tablet 5206-88-53D12:00:00.000+00: 00 - Completed furosemide 40 MG Oral Tablet 09-14-09T:00:00.000+00: 00 - Completed lorazepam 1 MG Oral Tablet :00:00.000+00: 00 - Completed duloxetine 60 MG Delayed Rel ease Oral Capsule 7158-90-38J35:00:00.000+00: 00 - Completed duloxetine 60 MG Delayed Rel ease Oral Capsule 0932-11-18N57:00:00.000+00: 00 - Completed lorazepam 1 MG Oral Tablet :00:00.000+00: 00 - Completed ondansetron 4 MG Disintegrat ing Oral Tablet 6039-07-89N54:00:00.000+00: 00 - Completed duloxetine 60 MG Delayed Rel ease Oral Capsule 5656-87-04R14:00:00.000+00: 00 - Completed lorazepam 1 MG Oral Tablet :00:00.000+00: 00 - Completed nitrofurantoin, macrocrystal s 25 MG / nitrofurantoin, monohydrate 75 MG Oral Capsule 3139-06-49L23:00:00.000+00: 00 - Completed duloxetine 60 MG Delayed Rel ease Oral Capsule 5437-13-84N10:00:00.000+00: 00 - Completed carvedilol 3.125 MG Oral Tablet 2782-38-00I40:00:00.000+00: 00 - Completed duloxetine 60 MG Delayed Rel ease Oral Capsule 2015-84-58M78:00:00.000+00: 00 - Completed carvedilol 3.125 MG Oral Tablet 7388-82-69P03:00:00.000+00: 00 - Completed carvedilol 3.125 MG Oral Tablet 5877-66-63D53:00:00.000+00: 00 - Completed carvedilol 3.125 MG Oral Tablet 4362-78-72N06:00:00.000+00: 00 - Completed tramadol hydrochloride 50 MG Oral Tablet 6258-41-39T93:00:00.000+00: 00 - Completed promethazine hydrochloride 1 2.5 MG Oral Tablet 4961-84-99B67:00:00.000+00: 00 - Completed promethazine hydrochloride 2 5 MG Oral Tablet 3373-39-44V18:00:00.000+00: 00 - Completed tizanidine 4 MG Oral Tablet 2022:00:00.000+00: 00 - Completed ciprofloxacin 250 MG Oral Tablet 8099-08-44U30:00:00.000+00: 00 - Completed tizanidine 4 MG Oral Tablet 2022:00:00.000+00: 00 - Completed tramadol hydrochloride 50 MG Oral Tablet 5371-10-77X42:00:00.000+00: 00 - Completed lamotrigine 100 MG Oral Tablet 714-21-44P79:00:00.000+00: 00 - Completed promethazine hydrochloride 2 5 MG Oral Tablet 0225-94-84D70:00:00.000+00: 00 - Completed promethazine hydrochloride 2 5 MG Oral Tablet 8984-40-73U10:00:00.000+00: 00 - Completed promethazine hydrochloride 2 5 MG Oral Tablet 3702-15-08J68:00:00.000+00: 00 - Completed promethazine hydrochloride 1 2.5 MG Oral Tablet 8309-93-39Y09:00:00.000+00: 00 - Completed tramadol hydrochloride 50 MG Oral Tablet 1322-64-56M90:00:00.000+00: 00 - Completed carvedilol 3.125 MG Oral Tablet 2545-94-94L72:00:00.000+00: 00 - Completed promethazine hydrochloride 1 2.5 MG Oral Tablet 9283-61-71K57:00:00.000+00: 00 - Completed duloxetine 60 MG Delayed Rel ease Oral Capsule 4984-18-20F29:00:00.000+00: 00 - Completed tramadol hydrochloride 50 MG Oral Tablet 9900-90-18I65:00:00.000+00: 00 - Completed ibuprofen 600 MG Oral Tablet 08-25-04:00:00.000+00: 00 - Completed carvedilol 3.125 MG Oral Tablet 9264-44-47D33:00:00.000+00: 00 - Completed carvedilol 3.125 MG Oral Tablet 8845-20-12C31:00:00.000+00: 00 - Completed tramadol hydrochloride 50 MG Oral Tablet 8985-59-64C75:00:00.000+00: 00 - Completed ondansetron 4 MG Oral Tablet 09-15-16:00:00.000+00: 00 - Completed carvedilol 3.125 MG Oral Tablet 2029-82-61T72:00:00.000+00: 00 - Completed lamotrigine 200 MG Oral Tablet 2 321-36-03D50:00:00.000+00: 00 - Completed zolpidem tartrate 10 MG Oral Tablet 8465-09-67C06:00:00.000+00: 00 - Completed lamotrigine 200 MG Oral Tablet 2 274-07-84I01:00:00.000+00: 00 - Completed ibuprofen 800 MG Oral Tablet 08-20-25:00:00.000+00: 00 - Completed clindamycin 300 MG Oral Capsule 7443-55-24D57:00:00.000+00: 00 - Completed lamotrigine 200 MG Oral Tablet 2 383-28-00K28:00:00.000+00: 00 - Completed zolpidem tartrate 10 MG Oral Tablet 8030-63-57L64:00:00.000+00: 00 - Completed tizanidine 4 MG Oral Tablet 2021T:00:00.000+00: 00 - Completed zolpidem tartrate 10 MG Oral Tablet 5640-91-12B37:00:00.000+00: 00 - Completed tizanidine 4 MG Oral Tablet 2022:00:00.000+00: 00 - Completed lamotrigine 200 MG Oral Tablet 2 617-65-53D41:00:00.000+00: 00 - Completed lamotrigine 200 MG Oral Tablet 2 625-72-36M39:00:00.000+00: 00 - Completed tizanidine 4 MG Oral Tablet 2022:00:00.000+00: 00 - Completed ibandronic acid 150 MG Oral Tablet 2497-13-34G05:00:00.000+00: 00 - Completed zolpidem tartrate 10 MG Oral Tablet 7189-80-32M56:00:00.000+00: 00 - Completed ibandronic acid 150 MG Oral Tablet 8246-34-12Y31:00:00.000+00: 00 - Completed zolpidem tartrate 10 MG Oral Tablet 8836-57-40N21:00:00.000+00: 00 - Completed zolpidem tartrate 10 MG Oral Tablet 3865-95-61G46:00:00.000+00: 00 - Completed lamotrigine 200 MG Oral Tablet 2 624-64-01T01:00:00.000+00: 00 - Completed zolpidem tartrate 10 MG Oral Tablet 8820-23-50U74:00:00.000+00: 00 - Completed duloxetine 60 MG Delayed Rel ease Oral Capsule 3775-29-71R47:00:00.000+00: 00 - Completed lamotrigine 200 MG Oral Tablet 2 675-51-58F13:00:00.000+00: 00 - Completed tizanidine 4 MG Oral Tablet 2022:00:00.000+00: 00 - Completed lamotrigine 200 MG Oral Tablet 2 221-06-78U08:00:00.000+00: 00 - Completed ibandronic acid 150 MG Oral Tablet 2428-62-63F45:00:00.000+00: 00 - Completed lamotrigine 200 MG Oral Tablet 2 030-80-23I67:00:00.000+00: 00 - Completed furosemide 20 MG Oral Tablet 09-15-04:00:00.000+00: 00 - Completed zolpidem tartrate 10 MG Oral Tablet 7189-18-55L53:00:00.000+00: 00 - Completed oxycodone hydrochloride 5 MG Oral Tablet 4850-82-34A05:00:00.000+00: 00 - Completed zolpidem tartrate 10 MG Oral Tablet 7523-55-15S97:00:00.000+00: 00 - Completed oxycodone hydrochloride 5 MG Oral Tablet 0272-32-67K24:00:00.000+00: 00 - Completed zolpidem tartrate 10 MG Oral Tablet 5113-78-17R74:00:00.000+00: 00 - Completed oxycodone hydrochloride 5 MG Oral Tablet 3820-52-05V20:00:00.000+00: 00 - Completed oxycodone hydrochloride 5 MG Oral Tablet 0144-92-18A62:00:00.000+00: 00 - Completed - 5708-82-17I42:00 :00.000+00: 00 - Completed zolpidem tartrate 10 MG Oral Tablet 6263-71-02B10:00:00.000+00: 00 - Completed zolpidem tartrate 10 MG Oral Tablet 2089-13-67Y09:00:00.000+00: 00 - Completed oxycodone hydrochloride 5 MG Oral Tablet 4588-42-13H97:00:00.000+00: 00 - Completed potassium chloride 10 MEQ Ex tended Release Oral Tablet 2152-98-32D76:00:00.000+00: 00 - Completed oxycodone hydrochloride 5 MG Oral Tablet 7972-71-59U47:00:00.000+00: 00 - Completed Patient Care team information Name Category Status Period Participants - - Proposed period not known -
--- OUTSIDE RECORDS SUMMARY | 2025-01-18 11:11 | XMS_ITS | Encounter Summary ---
Author Organization Healthcare Address [address] [place] [address] Care Team Providers Care Print Line Tailer Name Role Phone Omar De La Torre MD Primary Care Provider [phone] Encounter Details Date Type Department Care Team (Late st Contact Info) Description 09/26/2021 Lab Requisition [facility] [address] [place] [address] João Reyes MD [address] [address] Benign neoplasm of other specified sites Social [...] 1:25 PM KALPANAT Anette Hauser RN documented as of this encounter Mental Status * Because of a physical, mental, or emotional condition, do you have serious difficulty concentrating, remembering, or making decisions? (5 years old or older) Answer Entry Date Author No 02/05/2021 1:25 PM Anette Fraser RN documented in this encounter Plan of Treatment Not on file documented as of this encounter Procedures Procedure Name Priority Date/Time Associated Diagnosis Comments SURGICAL PATHOLOGY EXAM Routine 09/26/2021 Benign neoplasm of other specified sites documented in this encounter Results * Surgical Pathology Exam (09/26/2021) Case Report Surgical Pathology Case: [id number] Authorizing Provider: João Reyes MD Collected: 09/26/2021 Ordering Location: [facility] Lab Received: 09/26/2021 1239 Pathologist: Komal Negron MD Specimen: Wrist, Right, Right wrist neuroma 09/27/2021 11:40 AM EDT [facility] Final Diagnosis A. SOFT TISSUE MASS, RIGHT WRIST, EXCISION: - NEUROMA. 09/27/2021 11:40 AM EDT [facility] at 1140 EDT Clinical Information Right wrist hardware failure, right wrist neuroma 09/27/2021 11:40 AM EDT [facility] Gross Description A. RIGHT WRIST NEUROMA The specimen is received in formalin labeled right wrist neuroma , and consists of a 2.5 x 0.6 x 0.5 cm pink-harding fibrous tissue fragment. Entirely submitted in cassette A1. Kimberly Montgomery 09/27/2021 11:40 AM EDT [facility] Tissue Structure of right wrist region / Unknown 09/26/2021 09/26/2021 12:39 PM EDT João Reyes MD LAB PATHOLOGY ORDERABLES Alisha boone Result [facility] [address] [place] [address] documented in this encounter Visit Diagnoses Diagnosis Benign neoplasm of other specified sites documented in this encounter Additional Health Concerns Assessment Noted Time A fall risk assessment has been complete d for the patient 09/11/2021 10:48 AM EST documented as of this encounter Care Teams Print Line Tailer Relationship Specialty Start Date End Date Omar De La Torre MD [address] [place] [address] [address] [place] [address] PCP - General 11/24/20 documented as of this encounter
--- OUTSIDE RECORDS SUMMARY | 2025-01-18 11:11 | XMS_ITS | Encounter Summary ---
Author Organization [facility] Address [address] [place] [address] Care Team Providers Care Tablet Coater Name Role Phone Omar De La Torre MD Primary Care Provider [phone] Reason for Visit * Reason Onset Date Comments HCN - Patient Message 11/25/2024 Encounter Details Date Type Department Care Team (Late st Contact Info) Description 11/25/2024 Telephone [facility] [address] [place] [address] João Reyes MD [address] [address] HCN - Patient Message Social [...] she sees her name. Best contact number: [phone] (home) Optimal time of day to reach [...] documented as of this encounter Care Teams Tablet Coater Relationship Specialty Start Date End Date Omar De La Torre MD [address] [place] [address] [address] [place] [address] PCP - General 11/24/20 documented as of this encounter
== END 2025-01-18 23:59 | disposition home or self-care (01) ==
LOC: RAD 11:08
PROVIDERS: PCP Internal Medicine; Visit Provider Internal Medicine
DX: S13.4XXA Sprain of ligaments of cervical spine, initial encounter (principal); Z98.1 Arthrodesis status; W19.XXXA Unspecified fall, initial encounter
CPT/HCPCS: 72050

== ENCOUNTER 2025-01-20 15:42 | Outpatient (CLI) | payer BC, SELFPAY ==
--- OUTSIDE RECORDS SUMMARY | 2024-11-25 14:00 | XMS_ITS | Encounter Summary ---
Author Organization [facility] Address [address] [place] [address] Care Team Providers Care Maintenance Electrician Name Role Phone Omar De La Torre MD Primary Care Provider [phone] Reason for Visit * Consultation (Routine) - Closed Specialty Diagnoses / Procedures Referred By Contac t Referred To Contact Plastic Surgery Diagnoses Scar contracture João Reyes MD [address] [address] Phone: tel: fax: Referral ID Status Reason Start Date Expiration Date V isits Requested Visits Authorized [id number] Closed Specialty Services Required 11/10/2024 05/12/2026 1 1 Encounter Details Date Type Department Care Team (Late st Contact Info) Description 11/25/2024 2:00 PM EDT Office Visit [facility] Plastic & Reconstructive Surgery [address] [place] [address] João Reyes MD [address] [address] Scar contracture (Primary Dx) Social [...] and Affect: Mood normal. Imaging: N/a Assessment/Plan: Pagie Kennedy is a 64 y.o. female who [...] documented as of this encounter Care Teams Maintenance Electrician Relationship Specialty Start Date End Date Omar De La Torre MD [address] [place] [address] [address] [place] [address] PCP - General 11/24/20 documented as of this encounter
--- NOTE | 2025-01-20 15:44 | MR_ITS ---
PROCEDURE INFORMATION: Exam: MR Cervical Spine Without Contrast Exam date and time: 01/20/2025 4:33 PM Age: 64 years old Clinical indication: Neck pain; Prior surgery; Surgery date: 6+ months; Surgery type: Fusion; Additional info: Neck pain with limited rom TECHNIQUE: Imaging protocol: Magnetic resonance imaging of the cervical spine without contrast. COMPARISON: CR XR CERVICAL SPINE 5V 01/18/2025 11:29 AM FINDINGS: Bones/joints: Status post C3-C6 ACDF. Susceptibility artifact slightly obscures the assessment of the surrounding structures. Spinal cord: Normal signal. No cord compression. C2-C3: No significant disc bulge or herniation. No severe spinal canal stenosis. No significant neural foraminal narrowing. C3-C4: No significant spinal canal stenosis. Uncovertebral and facet arthropathy produce mild right, moderate left neural foraminal narrowing. C4-C5: No significant spinal canal stenosis. Uncovertebral and facet arthropathy produce mild bilateral neural foraminal narrowing. C5-C6: No significant spinal canal stenosis. Uncovertebral and facet arthropathy produce mild bilateral neural foraminal narrowing. C6-C7: No significant disc bulge or herniation. No severe spinal canal stenosis. No significant neural foraminal narrowing. C7-T1: No significant disc bulge or herniation. No severe spinal canal stenosis. No significant neural foraminal narrowing. Soft tissues: Unremarkable. Vasculature: Expected flow voids in the vertebral arteries. IMPRESSION: Mild multilevel degenerateive changes without significant spinal canal stenosis at any level. Uncovertebral and facet arthropathy produce mild right, moderate left neural foraminal narrowing at C3-C4 level.
--- OUTSIDE RECORDS SUMMARY | 2025-01-20 15:44 | XMS_ITS | Clinical Summary ---
Author Organization [facility] Address [address] [facility] [address] [place] [address] Phone Care Team Providers Care Filling And Stapling Machine Operator Name Role Phone Unavailable Unavailable Conditions or Problems No information available. Medications No information available. Medications Administered No information available. Allergies, Adverse Reactions, Alerts No information available. Results No information available. Plan of Care No information available. Procedures No information available. Vital Signs No information available. Immunizations No information available. Advance Directives No information available.
--- OUTSIDE RECORDS SUMMARY | 2025-01-20 15:44 | XMS_ITS | Encounter Summary ---
Author Organization [employer] ([place], [place], [place], [place]) Address [address] [place] [address] Care Team Providers Care House Moving Supervisor Name Role Phone Omar De La Torre MD Primary Care Provider [phone] Encounter Details Date Type Department Care Team (Late st Contact Info) Description 11/05/2024 Abstract [facility] Neurology - [address] [employer] [address] [place] [phone] Jose Ortega MD [facility] [address] [place] [address] Social History Tobacco Use Types [...] Date Wild rded Speak language other than [place]ralt[place] at home Not on file 08/01/2023 Want [...] Description 02/23/2025 10:00 AM EDT Office Visit [facility] Neurology - [address] [facility] [address] [place] [phone] Jose Ortega MD [address] [facility] [address] [place] [address] documented as of this encounter Visit Diagnoses Not on filedocumented in this encounter Care Teams House Moving Supervisor Relationship Specialty Start Date End Date Omar De La Torre MD [address] [place] [address] PCP - General General Internal Medicine 10/16/22 documented as of this encounter
--- OUTSIDE RECORDS SUMMARY | 2025-01-20 15:44 | XMS_ITS | Encounter Summary ---
Author Organization Healthcare Address [address] [place] [address] Care Team Providers Care Farm Equipment Engineer Name Role Phone Omar De La Torre MD Primary Care Provider [phone] Reason for Visit * Reason Onset Date Comments HCN - Rx Refill Request 10/05/2021 Encounter Details Date Type Department Care Team (Late st Contact Info) Description 10/05/2021 Telephone [facility] [address] [place] [address] João Reyes MD [address] [address] HCN - Rx Refill Request [...] Preferred Pharmacy & Location[facility] Days of medication remaining (if under 3 days please sandra as urgent): 0 Best contact number and optimal time of day to reach caller: [phone] Additional comments/information from caller: Note: Please do not reply to this message. Follow-up communication and further actions as a result of this message need to be communicated with the patient directly, if the patient is not active onMyChart. If the patient is active on MyChart, they will receive notification of the communication/outcome via [employer]. documented in this encounter Plan of Treatment Not on file documented as of this encounter Visit Diagnoses Not on filedocumented in this encounter Additional Health Concerns Assessment Noted Time A fall risk assessment has been complete d for the patient 09/11/2021 10:48 AM EST documented as of this encounter Care Teams Farm Equipment Engineer Relationship Specialty Start Date End Date Omar De La Torre MD [address] [place] [address] [address] [place] [address] PCP - General 11/24/20 documented as of this encounter
--- OUTSIDE RECORDS SUMMARY | 2025-01-20 15:44 | XMS_ITS | Encounter Summary ---
Author Organization Healthcare Address [address] [place] [address] Care Team Providers Care School Lunch Monitor Name Role Phone Omar De La Torre MD Primary Care Provider [phone] Encounter Details Date Type Department Care Team (Late st Contact Info) Description 09/26/2021 Lab Requisition [facility] [address] [place] [address] João Reyes MD [address] [address] Benign neoplasm of other specified sites Social [...] Exam (09/26/2021) Case Report Surgical Pathology Case: [id number] Authorizing Provider: João Reyes MD Collected: 09/26/2021 Ordering Location: [facility] Lab Received: 09/26/2021 1239 Pathologist: Komal Negron MD Specimen: Wrist, Right, Right wrist neuroma 09/27/2021 11:40 AM EDT [facility] Final Diagnosis A. SOFT TISSUE MASS, RIGHT WRIST, EXCISION: - NEUROMA. 09/27/2021 11:40 AM EDT [facility] at 1140 EDT Clinical Information Right wrist hardware failure, right wrist neuroma 09/27/2021 11:40 AM EDT [facility] Gross Description A. RIGHT WRIST NEUROMA The specimen is received in formalin labeled right wrist neuroma , and consists of a 2.5 x 0.6 x 0.5 cm pink-harding fibrous tissue fragment. Entirely submitted in cassette A1. Kimberly Montgomery 09/27/2021 11:40 AM EDT [facility] Tissue Structure of right wrist region / Unknown 09/26/2021 09/26/2021 12:39 PM EDT João Reeys MD LAB PATHOLOGY ORDERABLES Alisha boone Result [facility] [address] [place] [address] documented in this encounter Visit Diagnoses Diagnosis Benign neoplasm of other specified sites documented in this encounter Additional Health Concerns Assessment Noted Time A fall risk assessment has been complete d for the patient 09/11/2021 10:48 AM EST documented as of this encounter Care Teams School Lunch Monitor Relationship Specialty Start Date End Date Omar De La Torre MD [address] [place] [address] [address] [place] [address] PCP - General 11/24/20 documented as of this encounter
--- OUTSIDE RECORDS SUMMARY | 2025-01-20 15:44 | XMS_ITS | Clinical Summary ---
Author Organization [employer] ([place], [place], [place], [place]) Address [address] [place] [address] Care Team Providers Care Senior Web Applications Developer Name Role Phone Omar De La Torre MD Primary Care Provider [phone] Allergies Active Allergy Reactions Criticality Noted Date [...] Type Department Care Team Description 11/05/2024 Abstract [facility] Neurology - [address] [place] [address] Jose Ortega MD 10/25/2024 9:00 AM EDT Office Visit [facility] Neurology - [address] [place] [address] Jose Ortega MD Weakness (Primary Dx); Migraine [...] Date Wild rded Speak language other than [place] Sor[place] at home Not on file 08/01/2023 Want [...] Office Visit [facility] Neurology - [facility] [place] [phone] Jose Ortega MD [facility] [address] [place], [place] [id number] Health Maintenance Due Date Last Done Comments [...] 10/25/2025 10/25/2024 Medical Devices Implanted Type Area Sample Maker Hand Device Identifier Shelf Expiration Date Model / Serial / Lot Bone Vivigen Formable Bl-1600-001 - [id number] Implanted:Qty : 1 on 10/30/2022 by Duane Friedman MD at [facility] IMPLANTS N/A: Spine Cervical LIFENET:LIFENET TRANSPLANT SRV 10/11/2023 BL-1600-0 01 / [id number] / Cage Eit Cif H 5mm 8d S [id number] - [id number] Implanted:Qty : 1 on 10/30/2022 by Duane Friedman MD at [facility] IMPLANTS N/A: Spine Cervical J &J:DEPUY:DEPUY SPINE 01/10/2026 [id number] / / [id number] Cage Eit Cif H 5mm 8d S [id number] - [id number] Implanted:Qty : 1 on 10/30/2022 by Duane Friedman MD at [facility] IMPLANTS N/A: Spine Cervical J &J:DEPUY:DEPUY SPINE 07/13/2023 [id number] / / [id number] Cage Eit Cif H 5mm 8d S [id number] - [id number] Implanted:Qty : 1 on 10/30/2022 by Duane Friedman MD at [facility] IMPLANTS N/A: Spine Cervical J &J:DEPUY:DEPUY SPINE 01/10/2026 [id number] / / [id number] Plt Ant Skyln Hybrd Lvl3 45mm [id number] - [id number] Implanted:Qty : 1 on 10/30/2022 by Duane Friedman MD at [facility] IMPLANTS N/A: Neck J &J:DEPUY:DEPUY SPINE 0 45 / 45 / Scr Skyln Vari Sd 18mm [id number] - [id number] Implanted:Qty : 8 on 10/30/2022 by Duane Friedman MD at [facility] IMPLANTS N/A: Neck J &J:DEPUY:DEPUY SPINE 0 [...] AM EDT Performed at: 01 - [facility] [place] [address] Project Facilitator: Donnie Hart PhD, Phone: [phone] us Jose Ortega MD LAB BLOOD ORDERABLES Final Res ult [facility] from Last 3 Months Insurance BLUE CROSS/BLUE SHIELD Advance Directives For more information, please contact: [phone] Documents on File Type Date Recorded Patient Rehab Assistant Expl anation Advance Directives and Aziza g Will 10/30/2022 6:04 AM * Full Code (Latest Code Status on File) Date Activated Date Inactivated Comments 10/30/2022 10:48 AM 11/04/2022 1:55 PM Care Teams Senior Web Applications Developer Relationship Specialty Start Date End Date Omar De La Torre MD [address] [place] [address] [place] [address] PCP - General General Internal Medicine 10/16/22
--- OUTSIDE RECORDS SUMMARY | 2025-01-20 15:44 | XMS_ITS | Encounter Summary ---
Author Organization Healthcare Address [address] [place] [address] Care Team Providers Care Trial Judge Name Role Phone Omar De La Torre MD Primary Care Provider [phone] Reason for Visit * Reason Onset Date Comments Med Refill 05/07/2021 Encounter Details Date Type Department Care Team (Late st Contact Info) Description 05/07/2021 Refill [facility] [address] [place] [id number] João Reyes MD [address] [address] Social History Tobacco Use Types [...] optimal time of day to reach caller: [phone] Note: Please do not reply to this message. Follow-up communication and further actions as a result of this message need to be communicated with the patient directly, if the patient is not active onMyChart. If the patient is active on MyChart, they will receive notification of the communication/outcome via PiniOn. documented in this encounter Plan of Treatment Not on file documented as of this encounter Visit Diagnoses Not on filedocumented in this encounter Additional Health Concerns Assessment Noted Time A fall risk assessment has been complete d for the patient 04/03/2021 11:28 AM EDT documented as of this encounter Care Teams Trial Judge Relationship Specialty Start Date End Date Omar De La Torre MD [address] [place] [address] [address] [place] [address] PCP - General 11/24/20 documented as of this encounter
--- OUTSIDE RECORDS SUMMARY | 2025-01-20 15:44 | XMS_ITS | Data Portability ---
Author Organization [place] [facility] Address [address] [place] [address] Assessment Encounter Date Assessment Date Assessment LastModified by Organization Details LastModified Time 09/24/2023 09/24/2023 This patient is a well-known patient with a hydromorphone/bupi vacaine pain pump in place. She is doing well with her pain pump. It was recently increased to 5.32 mg/day. She has had a previous lumbar fusion and cervical fusion. She is having some increasing neck pain radiating to arm and some low back pain radiating down her leg. This been several years since an injection. She Has been evaluated by Dr. Friedman and by Dr. Ortega. She is to undergo MRIs of her cervical spine and lumbar spine. She is scheduled to do this on October 09. We will have her come in that day for check of her pain pump after MRI. We will also see her back in 1 month to evaluate her symptoms and follow-up on MRIs to make recommendations. Most likely I do believe she would benefit from a cervical epidural steroid injection as well as lumbar epidural steroid injection in the future. Will discuss this after reviewing her MRIs. We will also await doing these injections until we get treatment recommendations from her neurologist, Dr. Ortega. We did interrogate her pump we did not make any changes. abux Not available 09/24/2023 16:28:46 10/10/2023 10/10/2023 This is a pleasa nt 63-year-old female that presents to clinic today for follow-up. We are currently treating patient for degenerative disc disease of the cervical and lumbar spine with cervical and lumbar radiculopathy, postlaminectomy syndrome of her lumbar and cervical spine as well. Patient reports that she is hurting worse than usual today. She states that her neck and lower back has been bothering her. She has had her MRI of her lumbar spine and her brain. Patient reports that she thinks she is scheduled for her cervical spine on 10/19. She states that she is scheduled to see Dr. Ortega on November 25 for follow-up on those MRIs. She is also having a nerve conduction study done on November 25. Patient is rating her pain an 8 out of 10 today. Patient's Daniel number is [id number]. Daniel has been reviewed and does show an overlap for her anxiety medication prescribed by her family per care provider. We did drug test patient in office today. Plan: We did do an adjustment to patient's intrathecal pain pump device today. We did increase her to 5.8 mg/day. We did advise patient that we are waiting for her imaging to be done before we move forward with any injections. We do think that she would benefit from some cervical epidural steroid injections as well as lumbar epidural steroid injections in the future. We will wait to proceed with these until we review her MRIs. We are also waiting recommendations from her neurologist Dr. Ortega. We will see patient back in 2 weeks to go over her MRIs and to check on her increasing her pump. Patient verbalized understanding agreeable with this plan of care. Patient has been instructed to contact the clinic with any concerns before the next appointment. Dr. Ortiz has reviewed this note and agrees with this plan of care. This note was dictated using voice recognition software and may contain errors or omissions. Patients primary care has been copied on these notes for continutity of care. [email or web address] Not available 10/10/2023 13:48:49 Plan of Treatment Reminders Order Date Submit Date Provider Last Modified By Organization Details Last Modified Time Details Appointments None recorded. Lab None recorded. Referral None recorded. Procedures intrathecal pump adjustment (PROC) 2023 024 [email or web address] Not available 12:43:38 Surgeries None recorded. Imaging None recorded. Medication Orders None recorded. Patient TargetsNo targets recorded. Patient InstructionsNo instructions recorded. Reason for Referral None Reported. Results Created Date Observation Date Name Description Value Unit Range Abnormal Flag Note LastModifiedBy Organization Detail LastModifiedTime 11/24/19 24 11/10/2023 MRI, lumba r spine , w/o contr ast No observ ation record ed. [email or web address] Not Available 2023 08:52:50 11/24/19 24 11/10/2023 MRI, head, w/wo contr ast No observ ation record ed. [email or web address] Not Available 2023 08:54:13 11/24/19 24 11/20/2023 XR, hand No observ ation record ed. Not Available 2023 08:55:31 Result Notes None recorded. Problems Name Problem SNOMED Code Status Onset Date Resolution Date Notes Provider Name and Address Organization Details Recorded Time Cervical post-laminecto my syndrome 955208872 Active 2023 Celso Ortiz MD [address], [address], [place] [facility] 16:28:18 Lumbar radiculopathy 057877567 Active 2023 Celso Ortiz MD [address], [address], [place] [facility] 16:28:19 Degeneration of lumbar intervertebral disc 01097360 Active 2023 Celso Ortiz MD [address], [address], [place] [facility] 4 16:28:20 Lumbar post-laminecto my syndrome 397167338 Active 2023 Celso Ortiz MD [address], [address], [place] [facility] 4 16:28:22 Cervical radiculopathy 06689947 Active 2023 Celso Ortiz MD [address], [address], [place] [facility] 4 16:28:23 Degeneration of cervical intervertebral disc 53402774 Active 2023 Celso Ortiz MD [address], [address], [place] [facility] 4 16:28:29 Post-laminecto my syndrome 76710095 Active 2022 NOMAN WALLS null, [place] [facility] 3 11:46:54 Problem Notes None recorded. Procedures Surgical History Date Name Laterality Status Provider Name and Address Organization Details Recorded Time 4 PUMP ADJUSTMENT completed TIKI MARTIN NP [address] [facility] [address], [place], [address], [place] [facility] 10/10/2023 13:44:27 Imaging Results None recorded. Procedure Notes None recorded. Medical Equipment None Reported. Allergies Allergen ID Allergen Name Allergen Category Reaction Reaction Severity Criticality Documentation Date Start Date Code Code System Note Provider Name and Address Organization Details Recorded Time 4607 Product containin g penicilli n (product) medicatio n Not available Not available Not available 09/24/2023 20553 8001 SNOMED MEGHAN LOVE null, [place] [facility] 4 15:27:06 4608 morphine medicatio n Not available Not available Not available 09/24/2023 7052 RxNorm MEGHAN LOVE null, [place] [facility] 4 15:27:14 4609 Keflex medicatio n Not available Not available Not available 09/24/2023 31804 7 RxNorm MEGHAN LOVE null, [place] [facility] 4 15:27:20 Medications Name Sig Start Date Stop Date Status Note LastModified by Organization Details LastModified Time DILAUDID 20/BUPIVACA INE 20 DISPENSE IN 20 ML FOR INTRATHEC AL PUMP INFUSION 2023 active Not Available Not Available Not Avai lable DILAUDID 20/BUPIVACA INE 20 DISPENSE IN 20 ML FOR INTRATHEC AL PUMP INFUSION 2022 active Not Available Not Available Not Avai lable gnp century mature women 50+ tab 100ct TAKE ONE TABLET BY MOUTH EVERY DAY 09/23 completed Not Available Not Available Not Available DILAUDID 20/BUPIVACA INE 20 DISPENSE IN 20 ML FOR INTRATHEC AL PUMP INFUSION 2022 active Not Available Not Available Not Avai lable DILAUDID 20/BUPIVACA INE 20 DISPENSE IN 20 ML FOR INTRATHEC AL PUMP INFUSION 2023 active Not Available Not Available Not Avai lable DILAUDID 20/BUPIVACA INE 20 DISPENSE IN 20 ML FOR INTRATHEC AL PUMP INFUSION 2023 active Not Available Not Available Not Avai lable DILAUDID 20/BUPIVACA INE 20 DISPENSE IN 20 ML FOR INTRATHEC AL PUMP INFUSION 2023 active Not Available Not Available Not Avai lable diclofenac 75 mg-misopros michaela 200 mcg tablet,imme diate,delay ed release TAKE ONE TABLET BY MOUTH TWICE DAILY 09/23 completed Not Available Not Available Not Available furosemide 40 mg tablet TAKE ONE TABLET BY MOUTH EVERY MORNING NEEDED FOR EDEMA active Not Available Not Available No t Available cyanocobala min (vit B-12) ER 1,000 mcg tablet,exte nded release TAKE ONE TABLET BY MOUTH EVERY DAY 10/09 completed Not Available Not Available Not Available gabapentin 600 mg tablet TAKE ONE TABLET BY MOUTH THREE TIMES DAILY MAY CAUSE DROWSINES S 09/23 completed Not Available Not Available Not Available carvedilol 12.5 mg tablet TAKE ONE TABLET BY MOUTH TWICE DAILY 09/23 completed Not Available Not Available Not Available lamotrigine 200 mg tablet TAKE ONE TABLET BY MOUTH TWICE DAILY active Not Available Not Available No t Available Vitamin C 500 mg tablet TAKE TWO TABLETS BY MOUTH EVERY MORNING active Not Available Not Available No t Available tizanidine 4 mg tablet TAKE ONE TABLET BY MOUTH TWICE DAILY MAY CAUSE DROWSINES S active Not Available Not Available No t Available ondansetron HCl 4 mg tablet TAKE ONE TABLET BY MOUTH EVERY 8 HOURS NEEDED FOR NAUSEA AND VOMITING active Not Available Not Available No t Available alendronate 70 mg tablet TAKE ONE TABLET BY MOUTH ONCE A WEEK IN THE MORNING with full GLASS of water AND nothing TO eat OR drink FOR 30 minutes afterward s 09/23 completed Not Available Not Available Not Available potassium chloride ER 10 mEq tablet,exte nded release active Not Available Not Available Not Available oxcarbazepi ne 300 mg tablet TAKE ONE TABLET BY MOUTH TWICE DAILY 09/23 completed Not Available Not Available Not Available ciprofloxac in 250 mg tablet TAKE ONE TABLET BY MOUTH EVERY TWELVE HOURS FOR 3 DAYS -- FINISH ALL MEDICINE -- 09/23 completed Not Available Not Available Not Available aspirin 81 mg tablet,cailin yed release TAKE ONE TABLET BY MOUTH EVERY DAY active Not Available Not Available No t Available tramadol 50 mg tablet TAKE ONE TABLET BY MOUTH EVERY 6 HOURS NEEDED FOR SEVERE pain MAY CAUSE DROWSINES S 09/23 completed Not Available Not Available Not Available spironolact one 25 mg tablet TAKE ONE TABLET BY MOUTH EVERY DAY IN THE MORNING FOR FLUID active Not Available Not Available No t Available carvedilol 3.125 mg tablet TAKE ONE TABLET BY MOUTH TWICE DAILY FOR BLOOD PRESSURE active Not Available Not Available No t Available oxycodone-a cetaminophe n 5 mg-325 mg tablet TAKE ONE TABLET BY MOUTH EVERY 6 HOURS NEEDED FOR PAIN MAY CAUSE DROWSINES S 09/23 completed Not Available Not Available Not Available potassium chloride ER 20 mEq tablet,exte nded release(par t/cryst) TAKE ONE TABLET BY MOUTH EVERY DAY with furosemid e active Not Available Not Available No t Available gabapentin 800 mg tablet TAKE ONE TABLET FOUR TIMES DAILY EVERY DAY MAY CAUSE DROWSINES S active Not Available Not Available No t Available ciprofloxac in 0.3 % eye drops instill 1 DROP into affected eye(s) FOUR TIMES DAILY UNTIL CLEAR 10/09 completed Not Available Not Available Not Available hydrocodone 7.5 mg-acetamin ophen 325 mg tablet TAKE ONE TABLET BY MOUTH EVERY 6 HOURS NEEDED MAY CAUSE DROWSINES S active Not Available Not Available No t Available cyanocobala min (vit B-12) 1,000 mcg/mL injection solution INJECT 1ML INTRAMUSC ULARLY EVERY DAY FOR 7 DAYS THEN EVERY WEEK FOR 4 WEEKS THEN MONTHLY active Not Available Not Available No t Available promethazin e 25 mg tablet TAKE 1/2 TO 1 TABLET BY MOUTH EVERY 6 HOURS NEEDED FOR NAUSEA AND VOMITING active Not Available Not Available No t Available BD Luer-Filomena Syringe 3 mL 25 gauge x 1 USE TO inject B12 active Not Available Not Available No t Available triamterene 37.5 mg-hydrochl orothiazide 25 mg tablet TAKE ONE TABLET BY MOUTH EVERY DAY FOR BLOOD PRESSURE active Not Available Not Available No t Available diclofenac sodium 75 mg tablet,cailin yed release TAKE ONE TABLET BY MOUTH TWICE DAILY --TAKE WITH FOOD-- active Not Available Not Available No t Available furosemide 20 mg tablet active Not Available Not Available Not Available lorazepam 1 mg tablet TAKE ONE TABLET BY MOUTH FOUR TIMES DAILY NEEDED MAY CAUSE DROWSINES S 09/23 completed Not Available Not Available Not Available zolpidem 10 mg tablet TAKE ONE TABLET BY MOUTH EVERY DAY AT BEDTIME NEEDED FOR SLEEP active Not Available Not Available No t Available ondansetron 4 mg disintegrat ing tablet active Not Available Not Available N ot Available lamotrigine 100 mg tablet active Not Available Not Available Not Available oxycodone 5 mg tablet TAKE ONE TABLET BY MOUTH EVERY 8 HOURS NEEDED FOR PAIN FOR 10 DAYS MAY CAUSE DROWSINES S 09/23 completed Not Available Not Available Not Available neomycin-po lymyxin-hyd rocort 3.5 mg-10,000 unit/mL-1 % ear drops,susp instill 1 OR 2 drops in affected ear(s) FOUR TIMES DAILY FOR 3 TO 5 DAYS NEEDED 09/23 completed Not Available Not Available Not Available nitrofurant oin monohydrate /macrocryst als 100 mg capsule TAKE ONE CAPSULE BY MOUTH TWICE DAILY FOR 5 DAYS -- FINISH ALL MEDICINE -- --TAKE WITH A MEAL/FOOD -- active Not Available Not Available No t Available duloxetine 60 mg capsule,del ayed release TAKE ONE CAPSULE BY MOUTH TWICE DAILY active Not Available Not Available No t Available ibandronate 150 mg tablet TAKE ONE TABLET BY MOUTH ONCE a MONTH (take ON an EMPTY stomach, 1 hour prior TO eating drinking) take with water active Not Available Not Available No t Available cholecalcif gilles (vitamin D3) 50 mcg (2,000 unit) tablet TAKE ONE TABLET BY MOUTH EVERY DAY active Not Available Not Available No t Available cholecalcif gilles (vitamin D3) 10 mcg (400 unit) chewable tablet TAKE ONE TABLET BY MOUTH EVERY DAY 09/23 completed Not Available Not Available Not Available One Daily Women 50 Plus 400 mcg-120 mg tablet TAKE ONE TABLET BY MOUTH EVERY DAY active Not Available Not Available No t Available iron ER 159 mg (45 mg iron) tablet,exte nded release TAKE ONE TABLET BY MOUTH EVERY DAY 09/23 completed Not Available Not Available Not Available Narcan 4 mg/actuatio n nasal spray --do not prime-- SPRAY 1 SPRAY in 1 nostril DIRECTED NEEDED FOR oversedat ion active Not Available Not Available No t Available Ubrelvy 100 mg tablet FOR MIGRAINE; TAKE 1 TABLET BY MOUTH AT ONSET OF SYMPTOMS. MAY REPEAT AFTER TWO HOURS IF SYMPTOMS PERSIST. MAX 2 TABLETS IN 24 HOURS - max 16 tablets in 30 DAYS active Not Available Not Available No t Available Nurtec ODT 75 mg disintegrat ing tablet TAKE ONE TABLET UNDER THE TONGUE NEEDED FOR MIGRAINE DIRECTED (MAX OF 1 PER DAY) active Not Available Not Available No t Available Qulipta 60 mg tablet TAKE ONE TABLET BY MOUTH EVERY NIGHT active Not Available Not Available No t Available Vitals Date Recorded Body height Heart rate Body mass index (BMI) Body weight Oxygen saturation Oxygen saturation in Arterial blood by Pulse oximetry Systolic And Diastolic Provider Name and Address Organization Details Last Updated DateTime 4 170.18 cm 76 /min 32.9 kg/m2 09127.4 g 96 % 96 % 132/76 mm[Hg] MEGHAN LOVE [place] [facility] 15:26:52 Date Recorded Body height Heart rate Body mass index (BMI) Body weight Oxygen saturation Oxygen saturation in Arterial blood by Pulse oximetry Systolic And Diastolic Provider Name and Address Organization Details Last Updated DateTime 4 170.18 cm 78 /min 32.9 kg/m2 39517.4 g 96 % 96 % 132/78 mm[Hg] MEGHAN LOVE [place] [facility] 4 12:32:47 Social History None recorded. Functional Status None recorded. Mental Status None recorded. Family History Nothing Reported. Medical History No medical history recorded. Gynecological HistoryNo gynecological history recorded. Obstetrics History GPAL:G 0 P 0 0 0 0 Past Encounters Encounter ID Performer Location Encounter Start Date Encounter Closed Date Diagnosis/Indication Diagnosis SNOMED-CT Code Diagnosis ICD10 Code Diagnosis Note [id number] Celso Ortiz MD [address] [place] [address] 09/24/2023 15:08:37 09/24/2023 16:20:47 Post-laminectomy syndrome 67843620 M96.1 Degenerati on of cervical intervertebral disc 40346106 M50.30 Cervical radiculopathy 11918692 M54.12 Lumbar post-laminectomy syndrome 432166599 M96.1 Degenerati on of lumbar intervertebral disc 89784275 M51.36 Lumbar radiculopathy 128 691902 M54.16 Cervical post-laminectomy syndrome 556948814 M96.1 [id number] TIKI MARTIN NP [facility] [address] [facility] [address] [place] [address] 10/10/2023 12:19:48 10/10/2023 12:51:30 Lumbar radiculopathy 724126235 M54.16 Cervical post-laminectomy syndrome 171698469 M96.1 Lumbar post-laminectomy syndrome 766950254 M96.1 Degenerati on of lumbar intervertebral disc 56604542 M51.36 Post-shira ectomy syndrome 05924680 M96.1 Degenerati on of cervical intervertebral disc 14067724 M50.30 Cervical radiculopathy 15445220 M54.12 Health Concerns Section Related Observation LastModified by Organization Detai ls LastModified Time None Recorded Concern Status LastModified by Organization Details LastModified Time None Recorded Advance Directives Directive None Recorded Payers Insurance Date Sequence Insurance Name Policy Number Policy Lozano Covered Member ID Lozano Member ID Guarantor Name 01/19/2025 1 [place] [id number] Paige Kennedy [id number] Paige Kennedy Notes Date Note Type Note Provider Name and Address Organization Details Recorded Time 10/10/2023 text/html Back PainReporte d bypatient.Location: cervical; lumbar Quality:sharp;achin g;throbbing Severity:worsening; pain level 8/10;severe (8-10) Duration:chronic Onset/Timing:Unknow n Context:trauma; prior back problems Alleviating Factors:rest Aggravating Factors:movement/po sitioning; twisting; flexing back; extending back; worse at night; lifting; housework; walking; standing; sitting; weather Associated Symptoms:no fever; no weak limbs; no tingling; no incontinence; no shortness of breath; no unintentional weight loss; no chills; no night sweats; no bowel/bladder symptoms; no recent increase in stress;numbness of the legs/feet;gait instability Prior Imaging:EMG TIKI MARTIN NP [address] [facility] [address], [place], [address], [place] [facility] 10/10/2023 13:49:17 OBGyn Episode No OBEpisode recorded.
--- OUTSIDE RECORDS SUMMARY | 2025-01-20 15:44 | XMS_ITS | Referral Summary ---
Author Organization [facility] ([place], [place], [place], [place]) Address [address] [place] [address] Care Team Providers Care Chemical Research Technician Name Role Phone Omar De La Torre MD Primary Care Provider [phone] Encounters Date Type Department Care Team Description 11/05/[address] [facility] - [facility] [address] [address] Jose Ortega MD 10/25/2024 Travel 10/25/2024 9:00 AM EDT Office Visit [facility] [address] [address] Jose Ortega MD Weakness (Primary Dx); Migraine [...] Date Wild rded Speak language other than Japanese at home Not on file 08/01/2023 Want [...] Description 02/23/2025 10:00 AM EDT Office Visit [facility] - [address] [phone] Jose Ortega MD [address] [place] [address] Medical Devices Implanted Type Area Group Insurance Special Agent Device Identifier Shelf Expiration Date Model / Serial / Lot Bone Vivigen Formable Sm Bl-1600-001 - [id number] Implanted:Qty : 1 on 10/30/2022 by Duane Friedman MD at [facility] IMPLANTS N/A: Spine Cervical LIFENET:LIFENET TRANSPLANT SRV 10/11/2023 BL-1600-0 / [id number] / Cage Eit Cif H 5mm 8d S [id number] - [id number] Implanted:Qty : 1 on 10/30/2022 by Duane Friedman MD at [facility] IMPLANTS N/A: Spine Cervical J &J:DEPUY:DEPUY SPINE 01/10/2026 [id number] / / [id number] Cage Eit Cif H 5mm 8d S [id number] - [id number] Implanted:Qty : 1 on 10/30/2022 by Duane Friedman MD at [facility] IMPLANTS N/A: Spine Cervical J &J:DEPUY:DEPUY SPINE 07/13/2023 [id number] / / [id number] Cage Eit Cif H 5mm 8d S [id number] - [id number] Implanted:Qty : 1 on 10/30/2022 by Duane Friedman MD at [facility] IMPLANTS N/A: Spine Cervical J &J:DEPUY:DEPUY SPINE 01/10/2026 [id number] / / [id number] Plt Ant Skyln Hybrd Lvl3 45mm 8-03-045 - [id number] Implanted:Qty : 1 on 10/30/2022 by Duane Friedman MD at [facility] IMPLANTS N/A: Neck J &J:DEPUY:DEPUY SPINE 1868-03-0 45 / 1868-03-0 45 / Scr Skyln Vari Sd 18mm 1867-50-018 - [id number] Implanted:Qty : 8 on 10/30/2022 by Duane Friedman MD at [facility] IMPLANTS N/A: Neck J &J:DEPUY:DEPUY SPINE 1868-50-0 18 / 1868-50-0 18 / Procedures Procedure Name Priority Date/Time Associated Diagnosis Comments VITAMIN B12 Routine 10/25/2024 9:30 AM EDT B12 deficiency from Last 3 Months Results * Vitamin B12 (10/25/2024 9:30 AM EDT) [facility] Vitamin B12 475 232 - 1,245 pg/mL [facility] 10/25/2024 9:30 AM EDT 10/25/2024 [facility] - 10/26/2024 8:07 AM EDT Performed at: 01 - [facility] [address] [id number] Client Relationship Consultant: Donnie Hart PhD, Phone: [phone] us Jose Ortega MD LAB BLOOD ORDERABLES Final Res ult [facility] from Last 3 Months Insurance BLUE CROSS/BLUE SHIELD Advance Directives For more information, please contact: [phone] Documents on File Type Date Recorded Patient Baker Head Expl anation Advance Directives and Livin g Will 10/30/2022 6:04 AM * Full Code (Latest Code Status on File) Date Activated Date Inactivated Comments 10/30/2022 10:48 AM 11/04/2022 1:55 PM Care Teams Chemical Research Technician Relationship Specialty Start Date End Date Omar De La Torre MD [address] [place] [address] [place] [address] PCP - General General Internal Medicine 10/16/22
--- OUTSIDE RECORDS SUMMARY | 2025-01-20 15:44 | XMS_ITS | Encounter Summary ---
Author Organization [facility] Address [address] [place] [address] Care Team Providers Care Laboratory Technical Specialist Name Role Phone Omar De La Torre MD Primary Care Provider [phone] Encounter Details Date Type Department Care Team [...] documented as of this encounter Care Teams Laboratory Technical Specialist Relationship Specialty Start Date End Date Omar De La Torre MD [address] [place] [address] [address] [place] [address] PCP - General 11/24/20 documented as of this encounter
--- OUTSIDE RECORDS SUMMARY | 2025-01-20 15:44 | XMS_ITS | Clinical Summary ---
Author Organization [facility] Address [address] [place] [address] Care Team Providers Care Duck Farmer Name Role Phone Omar De La Torre MD Primary Care Provider [phone] Allergies Active Allergy Reactions Criticality Noted Date [...] FINISH ALL MEDICINE -- Active HYDROcodone-acetam inophen ([place]) 7.5-325 MG tablet TAKE ONE TABLET BY [...] (11/13/2021): Added automatically from request for surgery [id number] Depression with anxiety 02/13/2021 Generalized OA 02/13/2021 HTN (hypertension) 02/13/2021 Insomnia 02/13/2021 Obesity 02/13/2021 Hematoma of left hip 02/13/2021 Acetabular labrum tear, left, sequela 01/18/2021 Lumbar radiculopathy 05/01/2020 Hip pain 04/18/2020 Iron deficiency anemia 09/29/2016 Status post bariatric surgery 09/29/2016 Spondylolisthesis 03/13/2015 Physical deconditioning Encounters Date Type Department Care Team Description 01/11/2025 Telephone [facility] [address] [place] [address] João Reyes MD 11/25/2024 2:00 PM EDT Office Visit [facility] [address] [place] [address] João Reyes MD Scar contracture (Primary Dx) 11/25/2024 Travel 11/25/2024 [facility]phone [facility] [address] [place] [address] João Reyes MD HCN - Patient Message 11/10/2024 10:35 AM EDT Anesthesia Event [facility] Surgery [address] [place] [address] Florian Gamez MD Wellman, Tyler M, [place] 11/10/2024 9:45 AM EDT - 11/10/2024 10:45 AM EDT Surgery [facility] Surgery [address] [place] [address] João Reyes MD Excision of anterior neck scar with z plasty [[id number] (CPT )] 11/10/2024 7:54 AM EDT - 11/10/2024 12:28 PM EDT Hospital Encounter [facility] [address] [place] [address] João Reyes MD Scar contracture (Primary Dx) [...] - Risk 60-74 years 1-dose series) 2020 [id number] Vaccine (3 - Pfizer risk series) 09/19/2020 [...] [employer]anne [employer] Implanted Type Area Veneer Taper Device Identifier Shelf Expiration Date Model / Serial / Lot Pain Pump Pain Pump N/A: Back Procedures Procedure Name Priority Date/Time Associated Diagnosis Comments POCT GLUCOSE METER UNSOLICITED RESULTS Routine 11/10/2024 11:29 AM EDT PB ANESTHESIA PLACEHOLDER Routine 11/10/2024 10:43 AM EDT MN AN ELECTIVE ENDOTRACHEAL AIRWAY Routine 11/10/2024 10:43 AM EDT MN WND PREP,PED, FACE/NCK/HND/FT/GEN ADD 100 CM 11/10/2024 [...] - 99 mg/dL 11/10/2024 12:13 PM EDT [facility] Comment:Accuracy of a glucos e [...] 11/10/2024 12:13 PM EDT [facility] Dean Of Instruction ID Lucie Martinez 11/11/19 12:13 PM EDT [employer] [facility] Device ID [id number] 11/10/2024 12:13 PM EDT [facility] Specimen Type POC Capillary 11/10/2024 12:13 PM EDT [facility] Blood Capillary blood specimen / Unknown 11/10/2024 11:29 AM EDT 11/10/2024 12:13 PM EDT us João Reyes MD LAB POINT OF CARE TE ST DOCKED DEVICE UNSOLICITED RESULTS Final Result [facility] [address] [place] [id number] * MN AN ELECTIVE ENDOTRACHEAL AIRWAY, PB ANESTHESIA PLACEHOLDER (11/10/2024 10:43 AM EDT) Narrative Sean Edge CRNA - 11/10/2024 10:43 AM EDT Sean Edge CRNA 11/10/2024 11:03 AM Airway Date/Time: 11/10/2024 10:43 AM Reason: elective Airway not difficult General Information and Staff Patient location during procedure: OR COMMUNICATIONS CONSULTANT: Sean Edge CRNA Performed: [place] Patient Condition [...] Comments Atraumatic. No change to dentition. us Florain Gamez MD ANESTHESIA ORDERABLES Fin al Result [...] Adults <6.0% Children and Adolescents <7.5% Source: [place] [employer]. Standards of medical care in diabetes,2017. Diabetes Care.2017:40 (suppl 1):S1-S135. HbA1c assay performed by an ion-exchange chromatography method that is certified traceable to the DCCT. Liana FELICIANO LAB BLOOD ORDERABLES Final R esult Performing Organization Address City/[facility] Co de Phone Number HEALTHCARE [facility] [address] [place] [address] * HIV 1 & 2 Antibody/Antigen Screen (02/12/2021 8:20 PM EDT) Pathologist [facility] HIV 1 & 2 Antibody/Anti gen Screen Nonreactive Nonreactive 02/12/2021 10:17 PM EDT HEALTHCARE [facility] Blood Venous blood specimen / Unknown Venipuncture / Unknown 02/12/2021 8:20 PM EDT 02/12/2021 8:34 PM EDT Joanne Umaña MD LAB BLOOD ORDERABLES Final Res ult Performing Organization Address City/[facility] Co de Phone Number [facility]ALTH[facility]ARE [facility] [address] [place] [address] * [place] Hepatitis C Antibody (02/12/2021 8:20 PM EDT) Pathologist [facility] Hepatitis C Antibody Negative Negative 02/12/2021 10:17 PM EDT HEALTHCARE LAB Blood Venous blood specimen / Unknown Venipuncture / Unknown 02/12/2021 8:20 PM EDT 02/12/2021 8:34 PM EDT Joanne Umaña MD LAB BLOOD ORDERABLES Final Res ult Performing Organization Address City/[facility] Co de Phone Number [facility] [address] [place] [address] from Last 3 Months or Most Recently [...] Patient has decision-making capacity? Yes Care Teams Duck Farmer Relationship Specialty Start Date End Date Omar De La Torre MD [address] [facility] [address] [place] [address] PCP - General 11/24/20
--- OUTSIDE RECORDS SUMMARY | 2025-01-20 15:44 | XMS_ITS | Data Portability ---
Author Organization [facility] Address [address] [facility] [address] [place] [address] Care Team Providers Care Manufacturing Planner Name Role Phone YURY ZAVALANichelle Zaragoza Primary Care Provider Assessment Encounter Date Assessment Date Assessment LastModified by Organization Details LastModified Time 11/28/2022 11/28/2022 Mrs. Kennedy is progressing as expected after a C3-C6 ACDF for cord compression. He x-rays look good. I printed her a copy. She will follow up in 2 months to monitor her progress. Not available 12/06/2022 09:26:35 01/27/2023 01/27/2023 Mrs. Kennedy is a 62-year-old female that underwent an C3-C6 ACDF for cord compression on October 30, [address] Friedman presents today for second postop visit. Patient spent several weeks at [facility]. She is currently working with physical therapy twice a week. She reports improvement of upper and lower extremity strength. She reports left neck pain that radiates down the arm and into the thumb. Dysphagia is improving. She continues to use a walker at home. She is in a wheelchair today. We will have patient follow-up in 3 to 4 months with updated x-rays to further monitor her progress. Patient verbalized understand instructions and is agreeable to plan. -Seen by Dr. Friedman and myself [email or web address] Not available 01/27/2023 16:39:11 05/29/2023 05/29/2023 Mrs. Kennedy is a 63-year-old female status post C3-C6 ACDF. Her x-rays look great with good evidence of fusion occurring. I gave her a printed copy. I am going to send her to Dr. Ortega to see what he can do to address her headaches. He may also consider updating EMG and nerve conduction studies, and do any additional testing he wishes due to her diffuse weakness. No further scheduled follow-up will be made with me at this time, but she understands she can call at anytime with questions or concerns. Not available 05/29/2023 11:47:44 10/25/2024 10/25/2024 ASSESSMENT: Ms. Kennedy is a 64-year-old female who returns to the office after last being seen 05/29/2023 with reports of continued and worsening posterior neck pain to her lateral left shoulder associated with numbness into her hands. She previously had a C3-6 ACDF for cord compression with Dr. Friedman on 10/30/2022. She reports after surgery, she [...] to see a plastic surgeon at the [facility] at the end of the month to [...] have a pain pump managed by Dr. Ortiz with hydromorphone and bupivacaine. She denies any bowel or bladder control changes. IMAGING: No new imaging available for review Nurse practitioner visit PLAN: Cervical AP, lateral, flexion, extension x-rays Cervical CT scan without contrast Cervical MRI without contrast Follow-up with Dr. Friedman Ms. Kennedy is going to move forward [...] office after the MRI is done. Dr. Friedman will review these images to determine if she would be a candidate for injections or further surgical interventions. She verbalized understanding of these instructions and is agreeable to this plan. She has no further questions or concerns at this time. She is satisfied with this plan of care. [email or web address] Not available 10/25/2024 15:01:06 Plan of Treatment Reminders Order Date Submit Date Provider Last Modified By Organization Details Last Modified Time Details Appointments None record ed. Lab None record ed. Referral None record ed. Procedures None record ed. Surgeries None record ed. Imaging None record ed. Medication Orders None record ed. Patient TargetsNo targets recorded. Patient Instructions Encounter Date Encounter Id Patient Instructions Last Modified By Organization Details Last Modified Time 01/27/2023 [id number] CATEGORY DESCRIPTION MINUTES Prepare to see the patient (e.g. review of tests) 5 Obtain/review separately obtained history 5 Perform medically appropriate exam/evaluation 5 Order medications, tests, or procedures Document Management Analyst/educate the patient/family/car egiver 5 Refer/communicate w/other healthcare professionals 5 Document clinical information into health record 5 Non-billable independent interp of results Non-billable care coordination TOTAL TIME 30 58745 (15-29) 07632 (30-44) 26392 (45-59) 90206 (60-74) 12769 (10-19) 80193 (20-29) 87839 (30-39) 22702 (40-54) [email or web address] Not available 01/27/2023 16:39:21 Reason for Referral None Reported. Results Created Date Observation Date Name Description Value Unit Range Abnormal Flag Note LastModifiedBy Organization Detail LastModifiedTime 11/29/19 23 11/28/2022 XR, cervi chace spine , 2 or 3 view K[place]ha [place] [facility] [address] [facility] [place] [address] Patien t Name: MARIA L ALEXANDRE ON Patien t : [birth year] 60 Patien t 9 Orderi ng Provid er: MINA Uriostegui MEREDITH EXAM DATE: 2022 EXAM: XR CERVIC AL AP/LAT CLINIC AL INFORM ATION: Postop erativ e. IMAGES PROVID ED: AP, and latera l views of the cervic al spine. COMPAR ALEXIS: None. FINDIN GS AND IMPRES MARYSOL: Anteri or spinal fusion is noted at C3-C6 level with compre ssion plate and screws . Surgic al hardwa re is satisf actori ly placed . No eviden ce of loosen ing or infect ion is seen. Other levels are normal . Interp reted By: Leyda Arnold MD Electr onical ly Signed By: Leyda Arnold MD on 023 3:10 PM [email or web address] [facility] [address] [place] [address], [phone], 01/06/2023 13:17:08 01/28/20 23 01/27/2023 XR, cervi chace spine , 2 or [address] [place] [address] Patiesme t Name: MARIA L ALEXANDRE ON Maryanne t : [birth year] 60 Maryanne t 9 Orderi ng Provid er: MINA Uriostegui MEREDITH EXAM DATE: 2022 EXAM: XR CERVIC AL AP/LAT CLINIC AL INFORM ATION: Neck pain IMAGES PROVID ED: AP, latera l, open mouth and submen vonnie views of the cervic al spine. COMPAR ALEXIS: None. FINDIN GS: Curvat ure, alignm ent, verteb ral body height s are normal . C3-C6 disc space reduct ion is seen with anteri or and latera l osteop hytes. Degene rative change s are seen at other levels . IMPRES MARYSOL: Degene rative change s of the cervic al spine. Interp reted By: Leyda Arnold MD Electr onical ly Signed By: Leyda Arnold MD on 023 1:08 PM [email or web address] [facility] [address] [place], [address], 02/11/2023 06:39:11 05/29/20 23 05/29/2023 XR, cervi chace spine , 2 or [address] [address] Patiesme t Name: MARIA L ALEXANDRE ON Patiesme t : [birth year] Patiesme t 9 Orderi ng Provid er: MINA FRIEDMAN EXAM DATE: 2022 EXAM: XR CERVIC AL AP/LAT CLINIC AL INFORM ATION: Postop erativ e. IMAGES PROVID ED: AP, and latera l views of the cervic al spine. COMPAR ALEXIS: None. FINDIN GS AND IMPRES MARYSOL: Anteri or spinal fusion is noted at C3-C6 level with compre ssion plate and screws . Surgic al hardwa re is satisf actori ly placed . No eviden ce of loosen ing or infect ion is seen. Degene rative change s are seen at other levels . Interp reted By: Leyda Arnold MD Electr onical ly Signed By: Leyda Arnold MD on 2022 11:38 AM [email or web address] [facility] [address], [address], 06/13/2023 10:32:05 Result Notes Documentation Provider Name and Address Organization Details Recorded Time Xr, Cervical Spine, 2 Or 3 View : [address] [address] Patient Name: PAIGE KENNEDY Patient : 1960 Patient Ordering Provider: FRANCISCA FRIEDMAN EXAM DATE: 11/28/2022 EXAM: XR CERVICAL AP/LAT CLINICAL INFORMATION: Postoperative. IMAGES PROVIDED: AP, and lateral views of the cervical spine. COMPARISON: None. FINDINGS AND IMPRESSION: Anterior spinal fusion is noted at C3-C6 level with compression plate and screws. Surgical hardware is satisfactorily placed. No evidence of loosening or infection is seen. Other levels are normal. Interpreted By: Sebastian Arnold MD Arjun Gomez [facility] 01/06/2023 13:17:08 Xr, Cervical Spine, 2 Or 3 View : [address] [address] Patient Name: PAIGE KENNEDY Patient : 1960 Patient Ordering Provider: FRANCISCA FRIEDMAN EXAM DATE: 01/27/2023 EXAM: XR CERVICAL AP/LAT CLINICAL INFORMATION: Neck pain IMAGES PROVIDED: AP, lateral, open mouth and submental views of the cervical spine. COMPARISON: None. FINDINGS: Curvature, alignment, vertebral body heights are normal. C3-C6 disc space reduction is seen with anterior and lateral osteophytes. Degenerative changes are seen at other levels. IMPRESSION: Degenerative changes of the cervical spine. Interpreted By: Sebastian Arnold MD Arjun Gomez [facility] 02/11/2023 06:39:11 Xr, Cervical Spine, 2 Or 3 View : [address] [address] Patient Name: PAIGE KENNEDY Patient : 1960 Patient Ordering Provider: FRANCISCA FRIEDMAN EXAM DATE: 05/29/2023 EXAM: XR CERVICAL AP/LAT CLINICAL INFORMATION: Postoperative. IMAGES PROVIDED: AP, and lateral views of the cervical spine. COMPARISON: None. FINDINGS AND IMPRESSION: Anterior spinal fusion is noted at C3-C6 level with compression plate and screws. Surgical hardware is satisfactorily placed. No evidence of loosening or infection is seen. Degenerative changes are seen at other levels. Interpreted By: Sebastian Arnold MD [facility] 06/13/2023 10:32:05 Problems Name Problem SNOMED Code Status Onset Date Resolution Date Notes Provider Name and Address Organization Details Recorded Time Lumbar radiculop athy 910141917 Active 2019 HELENA ZHONG PA-C [address] [place] [address], [phone] , [facility] 0 13:59:06 Recurrent falls 978205970 Active 2019 HELENA ZHONG PA-C [address] [place] [address], [phone] , [facility] 0 13:59:07 Degenerat ion of lumbar intervert ebral disc 39752937 Active 2014 From Automated Load;Provi alberto: Sundeep Russo;Sta tus: Active Not Available [facility] 6 07:17:48 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 420821247 Active 2014 From Automated Load;Provi alberto: Sundeep Russo;Sta tus: Active Not Available [facility] 6 07:17:48 Spondylol isthesis 980412015 Active 2014 From Automated Load;Provi alberto: Sundeep Russo;Sta tus: Active Not Available [facility] 6 07:17:48 Pain in right lower limb 909789057 Active 2015 From Automated Load;Provi alberto: Francisca Friedman;St atus: Active Not Available [facility] 6 07:17:48 Clinical finding Active 2015 Provider: Nahed Cesar: Active Not Available [facility] 6 07:17:48 Problem Notes None recorded. Medical Equipment None Reported. Allergies Allergen ID Allergen Name Allergen Category Reaction Reaction Severity Criticality Documentation Date Start Date Code Code System Note Provider Name and Address Organization Details Recorded Time 489885 morphine sulfate medicatio n Not available Not available Not available 06/06/20162009 93871 RxNorm Comme nt: Creat ed By: Karli Núñez ra;Cr eated Date: 2009 12:23 :36 PM; Not Available [facility] 6 10:13:45 944702 Keflex medicatio n Not available Not available Not available 06/06/20162009 47697 7 RxNorm Comme nt: Creat ed By: Karli Núñez ra;Cr eated Date: 2009 12:23 :12 PM; Not Available [facility] 6 14:24:18 751407 Product containin g penicilli n (product) medicatio n Not available Not available Not available 06/07/20162009 12778 8001 SNOMED Comme nt: Creat ed By: Karli Garcia eated Date: 2009 12:23 :20 PM; Not Available [facility] 6 04:55:17 Medications Name Sig Start Date Stop [...] (vit B-12) 1,000 mcg/mL injection solution INJECT 1000mcg (1ml) intramusc ularly daily FOR 7 DAYS, THEN WEEKLY FOR 4 WEEKS, THEN monthly active Not Available Not Available No t Available Urecholine 25 mg tablet Three times a day 2015 active Duration: 30 days;Inst ructions: 1, tid;Frequ ency: tid;Medic ation Descripti on: bethanech ol; Dosage:1; Route:ora l; refills:1 1; Quantity: 90 tablet Not Available Not Available Not Available promethazi ne 25 mg tablet TAKE ONE TABLET BY MOUTH DIRECTED NEEDED FOR NAUSEA active Not Available Not Available No t [...] Nurtec ODT 75 mg disintegra ting tablet DISSOLVE ONE TABLET UNDER THE TONGUE NEEDED FOR MIGRAINE every 24 HOURS DIRECTED active Not Available Not Available No t Available Ozempic 1 mg/dose (4 mg/3 mL) subcutaneo us pen injector INJECT 1 MG SUBCUTANE OUSLY EVERY ONCE WEEKLY active Not Available Not Available No t Available Qulipta 60 mg tablet TAKE ONE TABLET BY MOUTH EVERY EVENING active Not Available Not Available No t Available Ozempic 0.25 mg or 0.5 mg (2 mg/3 mL) subcutaneo us pen injector INJECT 0.5 MG SUBCUTANE OUSLY ONCE A WEEK active Not Available Not Available No t Available Vitals Date Recorded Body height Body mass index (BMI) Body weight Systolic And Diastolic Provider Name and Address Organization Details Last Updated DateTime 10/25/2024 171.45 cm 30.1 kg/m2 35021.51 g 124/74 mm[Hg] [facility] 10/25/2024 13:49:10 Date Recorded Body height Body mass index (BMI) Body weight Systolic And Diastolic Provider Name and Address Organization Details Last Updated DateTime 11/28/2022 171.45 cm 30.1 kg/m2 43457.51 g 142/82 mm[Hg] Tracie Alas [facility] 11/28/2022 14:54:15 Date Recorded Body height Body mass index (BMI) Body weight Systolic And Diastolic Provider Name and Address Organization Details Last Updated DateTime 01/27/2023 171.45 cm 30.1 kg/m2 93419.51 g 114/68 mm[Hg] Mireya Kumar [facility] 01/27/2023 11:10:24 Date Recorded Body height Body mass index (BMI) Body weight Systolic And Diastolic Provider Name and Address Organization Details Last Updated DateTime 05/29/2023 171.45 cm 30.1 kg/m2 51137.51 g 120/80 mm[Hg] Jeanie Herrera [facility] 05/29/2023 11:10:21 Social History None recorded. Functional Status None recorded. Mental Status None recorded. Family History Nothing Reported. Medical History No medical history recorded. Gynecological HistoryNo gynecological history recorded. Obstetrics History GPAL:G 0 P 0 0 0 0 Past Encounters Encounter ID Performer Location Encounter Start Date Encounter Closed Date Diagnosis/Indication Diagnosis SNOMED-CT Code Diagnosis ICD10 Code Diagnosis Note [id number] HELENA ZHONG PA-C [facility] [address] [place] [address] 05/01/2020 13:02:58 05/03/2020 21:07:25 Lumbar radiculopathy 862305311 M54.16 Recurrent falls 45496055 2 R29.6 [id number] CRISTIANO FERRARI APRN [facility] [address] [place] [address] 07/18/2022 09:57:38 07/19/2022 16:26:29 Lumbar radiculopathy 041626103 M54.16 Cervical spondylosis 387 661184 M47.812 [id number] FRANCISCA FRIEDMAN MD [facility] [address] [place] [address] 09/02/2022 14:35:26 09/03/2022 04:26:03 Spinal stenosis in cervical region 29308920 M48.02 [id number] FRANCISCA FRIEDMAN MD SURGERY SCHEDULE [address] [place] [address] 11/14/2022 11:28:25 11/14/2022 13:17:57 [id number] FRANCISCA FRIEDMAN MD [facility] [address] [place] [address] 11/28/2022 14:07:02 12/07/2022 04:43:35 Postoperative care 230735700 Z48.89 [id number] BRITNEY ZAVALA PA-C [facility] [address] [place] [address] 01/27/2023 10:41:22 01/28/2023 05:03:22 Cervical myelopathy 325985723 G95.9 [id number] FRANCISCA FRIEDMAN MD [facility] [address] [place] [address] 05/29/2023 10:52:59 05/30/2023 04:26:26 Postoperative care 185434133 Z48.89 [id number] CRISTIANO FERRARI APRN [facility] [address] [place] [address] 10/25/2024 13:35:22 10/26/2024 05:04:13 Cervical spondylosis 224181824 M47.812 Mckeon's reflex positive 769787199 R29.2 Impairment of balance 38 2815753 R26.89 Poor manual dexterity 30 2024180 R29.898 Health Concerns Section Related Observation LastModified by Organization Detai ls LastModified Time None Recorded Concern Status LastModified by Organization Details LastModified Time None Recorded Advance Directives Directive None Recorded Payers Insurance Date Sequence Insurance Name Policy Number Policy Lozano Covered Member ID Lozano Member ID Guarantor Name 01/07/2025 1 [place] [id number] Paige Kennedy [id number] Paige Kennedy 08/24/2023 PAYMENT PLAN Paige Kennedy Notes Date Note Type Note Provider Name and Address Organization Details Recorded Time 11/28/2022 text/html Mrs. Kennedy is a 62-year-old female that underwent an C3-C6 ACDF for cord compression. This was performed on October 30, 2022. She presents today for first postoperative visit with x-rays. FRANCISCA FRIEDMAN MD [address] [place] [address], [address], [facility] 12/06/2022 09:26:49 01/27/2023 text/html Mrs. Kennedy is a 62-year-old female that underwent an C3-C6 ACDF for cord compression on October 30, [address] Friedman presents today for second postop visit. Patient spent several weeks at [facility]. She is currently working with physical therapy twice a week. She reports improvement of upper and lower extremity strength. She reports left neck pain that radiates down the arm and into the thumb. Dysphagia is improving. She continues to use a walker at home. She is in a wheelchair today. She has new x-rays today. BRITNEY ZAVALA PA-C [address] [place] [address], [address], [facility] 01/27/2023 16:39:32 05/29/2023 text/html Mrs. Kennedy is a 63-year-old female that underwent a C3-4, C4-5 and C5-6 ACDF on October 30, 2022. She presents today for 3-month follow-up with new x-rays. She feels like things have plateaued, but she is not getting any worse. She has had some new left-sided neck pain, along with some tingling in her left arm. She has worsening headaches, unresponsive to Tylenol. FRANCISCA FRIEDMAN MD [address] [place] [address] [place], [address], [facility] 05/29/2023 11:47:55 10/25/2024 text/html Ms. Kennedy is a 64-year-old female who returns to the office after last being seen 05/29/2023 with reports of continued and worsening posterior neck pain to her lateral left shoulder associated with numbness into her hands. She previously had a C3-6 ACDF for cord compression with Dr. Friedman on 10/30/2022. CRISTIANO FERRARI, [employer]PAREL SALES LEADER [address] [facility] [place], [address], [facility] 10/25/2024 15:01:40 OBGyn Episode No OBEpisode recorded.
--- OUTSIDE RECORDS SUMMARY | 2025-01-20 15:45 | XMS_ITS | Encounter Summary ---
Author Organization [facility] Address [address] [place] [address] Care Team Providers Care Business Services Manager Name Role Phone Omar De La Torre MD Primary Care Provider [phone] Reason for Visit * Reason Onset Date Comments HCN - Patient Message 11/25/2024 Encounter Details Date Type Department Care Team (Late st Contact Info) Description 11/25/2024 Telephone [facility] [address] [place] [address] João Reyes MD [address] [address] HCN - Patient Message Social [...] she sees her name. Best contact number: [phone] (home) Optimal time of day to reach [...] documented as of this encounter Care Teams Business Services Manager Relationship Specialty Start Date End Date Omar De La Torre MD [address] [place] [address] [address] [place] [address] PCP - General 11/24/20 documented as of this encounter
--- OUTSIDE RECORDS SUMMARY | 2025-01-20 15:45 | XMS_ITS | Encounter Summary ---
Author Organization [facility] Address [address] [place] [address] Care Team Providers Care Shed Boss Name Role Phone Omar De La Torre MD Primary Care Provider [phone] Encounter Details Date Type Department Care Team (Late st Contact Info) Description 01/11/2025 Telephone [facility] [address] [place] [address] João Reyes MD [address] [address] Social History Tobacco Use Types [...] documented as of this encounter Care Teams Shed Boss Relationship Specialty Start Date End Date Omar De La Torre MD [address] [place] [address] [address] [place] [address] PCP - General 11/24/20 documented as of this encounter
--- OUTSIDE RECORDS SUMMARY | 2025-01-20 15:45 | XMS_ITS ---
Author Organization Unknown Medications Medication Instructions Effective Dates (start - stop) Status sulfamethoxazole 800 MG / trimethoprim 160 MG Oral Tablet 4542-33-24F94:00:00.00 0+00: 00 - Completed acetaminophen 325 MG / oxyco done hydrochloride 7.5 MG Oral Tablet 2442-22-52T80:00:00.0 00+00: 00 - Completed acetaminophen 325 MG / hydro codone bitartrate 7.5 MG Oral Tablet 0927-91-00R35:00:00.000+ 00: 00 - Completed acetaminophen 325 MG / hydro codone bitartrate 7.5 MG Oral Tablet 8292-42-05Z76:00:00.000+ 00: 00 - Completed sulfamethoxazole 800 MG / trimethoprim 160 MG Oral Tablet 5870-75-18T68:00:00.00 0+00: 00 - Completed lorazepam 1 MG Oral Tablet :00:00.000+00: 00 - Completed lorazepam 1 MG Oral Tablet :00:00.000+00: 00 - Completed lorazepam 1 MG Oral Tablet :00:00.000+00: 00 - Completed lorazepam 1 MG Oral Tablet :00:00.000+00: 00 - Completed lorazepam 1 MG Oral Tablet :00:00.000+00: 00 - Completed duloxetine 60 MG Delayed Rel ease Oral Capsule 6648-71-80P08:00:00.000+00: 00 - Completed lorazepam 1 MG Oral Tablet :00:00.000+00: 00 - Completed carvedilol 3.125 MG Oral Tablet 7661-70-58N22:00:00.000+00: 00 - Completed lorazepam 1 MG Oral Tablet :00:00.000+00: 00 - Completed duloxetine 60 MG Delayed Rel ease Oral Capsule 6945-99-68P29:00:00.000+00: 00 - Completed lorazepam 1 MG Oral Tablet :00:00.000+00: 00 - Completed lorazepam 1 MG Oral Tablet :00:00.000+00: 00 - Completed Microencapsulated potassium chloride 20 MEQ Extended Release Oral Tablet 2329-41-93N35:00:00.000+00: 00 - Completed duloxetine 60 MG Delayed Rel ease Oral Capsule 6010-90-12M76:00:00.000+00: 00 - Completed Microencapsulated potassium chloride 20 MEQ Extended Release Oral Tablet 8445-84-56S64:00:00.000+00: 00 - Completed furosemide 40 MG Oral Tablet 09-14-09T:00:00.000+00: 00 - Completed lorazepam 1 MG Oral Tablet :00:00.000+00: 00 - Completed duloxetine 60 MG Delayed Rel ease Oral Capsule 7019-25-12Z19:00:00.000+00: 00 - Completed duloxetine 60 MG Delayed Rel ease Oral Capsule 1505-22-50G52:00:00.000+00: 00 - Completed lorazepam 1 MG Oral Tablet :00:00.000+00: 00 - Completed ondansetron 4 MG Disintegrat ing Oral Tablet 2744-73-14G22:00:00.000+00: 00 - Completed duloxetine 60 MG Delayed Rel ease Oral Capsule 5731-28-69T45:00:00.000+00: 00 - Completed lorazepam 1 MG Oral Tablet :00:00.000+00: 00 - Completed nitrofurantoin, macrocrystal s 25 MG / nitrofurantoin, monohydrate 75 MG Oral Capsule 5197-79-66F82:00:00.000+00: 00 - Completed duloxetine 60 MG Delayed Rel ease Oral Capsule 7025-05-05J24:00:00.000+00: 00 - Completed carvedilol 3.125 MG Oral Tablet 2043-53-23N49:00:00.000+00: 00 - Completed duloxetine 60 MG Delayed Rel ease Oral Capsule 1456-73-42Z53:00:00.000+00: 00 - Completed carvedilol 3.125 MG Oral Tablet 7587-06-51Z69:00:00.000+00: 00 - Completed carvedilol 3.125 MG Oral Tablet 1087-04-59C93:00:00.000+00: 00 - Completed carvedilol 3.125 MG Oral Tablet 5194-07-95G07:00:00.000+00: 00 - Completed tramadol hydrochloride 50 MG Oral Tablet 5349-18-81F80:00:00.000+00: 00 - Completed promethazine hydrochloride 1 2.5 MG Oral Tablet 3908-88-20P71:00:00.000+00: 00 - Completed promethazine hydrochloride 2 5 MG Oral Tablet 2988-44-54B45:00:00.000+00: 00 - Completed tizanidine 4 MG Oral Tablet 2022:00:00.000+00: 00 - Completed ciprofloxacin 250 MG Oral Tablet 8323-39-79T18:00:00.000+00: 00 - Completed tizanidine 4 MG Oral Tablet 2022:00:00.000+00: 00 - Completed tramadol hydrochloride 50 MG Oral Tablet 6253-43-95M07:00:00.000+00: 00 - Completed lamotrigine 100 MG Oral Tablet 949-36-43O99:00:00.000+00: 00 - Completed promethazine hydrochloride 2 5 MG Oral Tablet 9084-78-72N53:00:00.000+00: 00 - Completed promethazine hydrochloride 2 5 MG Oral Tablet 9340-49-35X17:00:00.000+00: 00 - Completed promethazine hydrochloride 2 5 MG Oral Tablet 1614-90-28T81:00:00.000+00: 00 - Completed promethazine hydrochloride 1 2.5 MG Oral Tablet 3502-22-88U61:00:00.000+00: 00 - Completed tramadol hydrochloride 50 MG Oral Tablet 2423-50-12H88:00:00.000+00: 00 - Completed carvedilol 3.125 MG Oral Tablet 1344-16-70D60:00:00.000+00: 00 - Completed promethazine hydrochloride 1 2.5 MG Oral Tablet 0316-65-70J34:00:00.000+00: 00 - Completed duloxetine 60 MG Delayed Rel ease Oral Capsule 8622-37-95C82:00:00.000+00: 00 - Completed tramadol hydrochloride 50 MG Oral Tablet 9849-01-19A41:00:00.000+00: 00 - Completed ibuprofen 600 MG Oral Tablet 08-25-04:00:00.000+00: 00 - Completed carvedilol 3.125 MG Oral Tablet 0501-51-92X35:00:00.000+00: 00 - Completed carvedilol 3.125 MG Oral Tablet 6246-30-51S38:00:00.000+00: 00 - Completed tramadol hydrochloride 50 MG Oral Tablet 8136-64-44Z39:00:00.000+00: 00 - Completed ondansetron 4 MG Oral Tablet 09-15-16:00:00.000+00: 00 - Completed carvedilol 3.125 MG Oral Tablet 6064-04-88V21:00:00.000+00: 00 - Completed lamotrigine 200 MG Oral Tablet 2 942-37-35K26:00:00.000+00: 00 - Completed zolpidem tartrate 10 MG Oral Tablet 2929-37-00W34:00:00.000+00: 00 - Completed lamotrigine 200 MG Oral Tablet 2 363-72-76W21:00:00.000+00: 00 - Completed ibuprofen 800 MG Oral Tablet 08-20-25:00:00.000+00: 00 - Completed clindamycin 300 MG Oral Capsule 0774-06-64P40:00:00.000+00: 00 - Completed lamotrigine 200 MG Oral Tablet 2 254-37-11F12:00:00.000+00: 00 - Completed zolpidem tartrate 10 MG Oral Tablet 0289-78-34U67:00:00.000+00: 00 - Completed tizanidine 4 MG Oral Tablet 2021T:00:00.000+00: 00 - Completed zolpidem tartrate 10 MG Oral Tablet 2557-32-66A54:00:00.000+00: 00 - Completed tizanidine 4 MG Oral Tablet 2022:00:00.000+00: 00 - Completed lamotrigine 200 MG Oral Tablet 2 342-09-23D53:00:00.000+00: 00 - Completed lamotrigine 200 MG Oral Tablet 2 368-46-60B89:00:00.000+00: 00 - Completed tizanidine 4 MG Oral Tablet 2022:00:00.000+00: 00 - Completed ibandronic acid 150 MG Oral Tablet 7012-26-02R05:00:00.000+00: 00 - Completed zolpidem tartrate 10 MG Oral Tablet 5615-76-52P54:00:00.000+00: 00 - Completed ibandronic acid 150 MG Oral Tablet 6249-62-11V10:00:00.000+00: 00 - Completed zolpidem tartrate 10 MG Oral Tablet 9223-09-90W09:00:00.000+00: 00 - Completed zolpidem tartrate 10 MG Oral Tablet 5553-21-16C58:00:00.000+00: 00 - Completed lamotrigine 200 MG Oral Tablet 2 922-94-35U16:00:00.000+00: 00 - Completed zolpidem tartrate 10 MG Oral Tablet 6372-50-37F49:00:00.000+00: 00 - Completed duloxetine 60 MG Delayed Rel ease Oral Capsule 2523-08-79L93:00:00.000+00: 00 - Completed lamotrigine 200 MG Oral Tablet 2 995-49-04V57:00:00.000+00: 00 - Completed tizanidine 4 MG Oral Tablet 2022:00:00.000+00: 00 - Completed lamotrigine 200 MG Oral Tablet 2 237-55-93D13:00:00.000+00: 00 - Completed ibandronic acid 150 MG Oral Tablet 6629-26-78I07:00:00.000+00: 00 - Completed lamotrigine 200 MG Oral Tablet 2 874-24-43B65:00:00.000+00: 00 - Completed furosemide 20 MG Oral Tablet 09-15-04:00:00.000+00: 00 - Completed zolpidem tartrate 10 MG Oral Tablet 8764-03-11J37:00:00.000+00: 00 - Completed oxycodone hydrochloride 5 MG Oral Tablet 6081-04-92I77:00:00.000+00: 00 - Completed zolpidem tartrate 10 MG Oral Tablet 5006-60-71R84:00:00.000+00: 00 - Completed oxycodone hydrochloride 5 MG Oral Tablet 3192-99-85X22:00:00.000+00: 00 - Completed zolpidem tartrate 10 MG Oral Tablet 1313-39-89Q54:00:00.000+00: 00 - Completed oxycodone hydrochloride 5 MG Oral Tablet 0686-30-19T57:00:00.000+00: 00 - Completed oxycodone hydrochloride 5 MG Oral Tablet 8272-30-84S61:00:00.000+00: 00 - Completed - 1061-43-25N18:00 :00.000+00: 00 - Completed zolpidem tartrate 10 MG Oral Tablet 0731-57-84Q48:00:00.000+00: 00 - Completed zolpidem tartrate 10 MG Oral Tablet 0147-28-63O34:00:00.000+00: 00 - Completed oxycodone hydrochloride 5 MG Oral Tablet 4200-08-75R77:00:00.000+00: 00 - Completed potassium chloride 10 MEQ Ex tended Release Oral Tablet 8919-72-39Q58:00:00.000+00: 00 - Completed oxycodone hydrochloride 5 MG Oral Tablet 5427-73-66H88:00:00.000+00: 00 - Completed Patient Care team information Name Category Status Period Participants - - Proposed period not known -
--- NOTE | 2025-01-20 15:46 | XR_ITS ---
FINAL REPORT CLINICAL HISTORY: check placement for medtronic pain pump prior to mri FINDINGS: Two views of the abdomen demonstrate a pain pump which is NOT oriented 90 degrees to the Z axis. Placement is approximately 15 degrees to the Z axis. Fusion hardware is noted bridging L3-4 and L4-5. There may be stones in the projection of the left kidney measuring up to 15 mm. IMPRESSION: Pain pump in appropriate orientation for MRI clearance. Reviewed, Interpreted and Dictated by Houston Elizabeth MD Transcribed by Sana Shahid Authenticated and [facility]
== END 2025-01-20 23:59 | disposition home or self-care (01) ==
LOC: RAD 15:42
PROVIDERS: PCP Internal Medicine; Visit Provider Nurse Practitioner
DX: M47.22 Other spondylosis with radiculopathy, cervical region (principal); M99.71 Connective tissue and disc stenosis of intervertebral foramina of cervical region
CPT/HCPCS: 72141; 74019

== ENCOUNTER 2025-01-28 12:46 | Outpatient (CLI) | payer BC, SELFPAY ==
--- OUTSIDE RECORDS SUMMARY | 2025-01-28 12:48 | XMS_ITS | Clinical Summary ---
Author Organization [facility] Address [address] [place] [address] Phone Care Team Providers Care Accountant Tax Name Role Phone Unavailable Unavailable Conditions or Problems No information available. Medications No information available. Medications Administered No information available. Allergies, Adverse Reactions, Alerts No information available. Results No information available. Plan of Care No information available. Procedures No information available. Vital Signs No information available. Immunizations No information available. Advance Directives No information available.
--- OUTSIDE RECORDS SUMMARY | 2025-01-28 12:49 | XMS_ITS | Clinical Summary ---
Author Organization [facility] Address [address] [place] [address] Care Team Providers Care Hospitalist Medical Director Name Role Phone Omar De La Torre MD Primary Care Provider [phone] Allergies Active Allergy Reactions Criticality Noted Date [...] FINISH ALL MEDICINE -- Active HYDROcodone-acetam inophen (Coldiron) 7.5-325 MG tablet TAKE ONE TABLET BY [...] (11/13/2021): Added automatically from request for surgery [id number] Depression with anxiety 02/13/2021 Generalized OA 02/13/2021 HTN (hypertension) 02/13/2021 Insomnia 02/13/2021 Obesity 02/13/2021 Hematoma of left hip 02/13/2021 Acetabular labrum tear, left, sequela 01/18/2021 Lumbar radiculopathy 05/01/2020 Hip pain 04/18/2020 Iron deficiency anemia 09/29/2016 Status post bariatric surgery 09/29/2016 Spondylolisthesis 03/13/2015 Physical deconditioning Encounters Date Type Department Care Team Description 01/11/2025 [facility]phone [facility] [address] [place] [address] João Reyes MD 11/25/2024 2:00 PM EDT Office Visit [facility] [address] [place] [address] João Reyes MD Scar contracture (Primary Dx) 11/25/2024 Travel 11/25/2024 [facility]phone [facility] [address] [place] [address] João Reyes MD HCN - Patient Message 11/10/2024 10:35 AM EDT Anesthesia Event [facility] [address] [place] [address] Florian Gamez MD Wellman, Tyler M, GUADALUPE 11/10/2024 9:45 AM EDT - 11/10/2024 10:45 AM EDT Surgery [facility] [address] [place] [address] João Reyes MD Excision of anterior neck scar with z plasty [26185 (CPT )] 11/10/2024 7:54 AM EDT - 11/10/2024 12:28 PM EDT Hospital Encounter [facility] [address] [place] [address] João Reyes MD Scar contracture (Primary Dx) [...] - Risk 60-74 years 1-dose series) 2020 [id number] Vaccine (3 - Pfizer risk series) 09/19/2020 [...] Johanne Grimes Medical Devices Implanted Type Area Prior Authorization Technician Device Identifier Shelf Expiration Date Model / Serial / Lot Pain Pump Pain Pump N/A: Back Procedures Procedure Name Priority Date/Time Associated Diagnosis Comments POCT GLUCOSE METER UNSOLICITED RESULTS Routine 11/10/2024 11:29 AM EDT PB ANESTHESIA PLACEHOLDER Routine 11/10/2024 10:43 AM EDT CO AN ELECTIVE ENDOTRACHEAL AIRWAY Routine 11/10/2024 10:43 AM EDT CO WND PREP,PED, FACE/NCK/HND/FT/GEN ADD 100 CM 11/10/2024 [...] - 99 mg/dL 11/10/2024 12:13 PM EDT [facility] Comment:Accuracy of a glucos e [...] 11/10/2024 12:13 PM EDT [facility] Wind Turbine Blade Repair Technician ID Lucie Martinez 11/11/19 12:13 PM EDT [employer] [facility] Device ID [id number] 11/10/2024 12:13 PM EDT [facility] Specimen Type POC Capillary 11/10/2024 12:13 PM EDT [facility] Blood Capillary blood specimen / Unknown 11/10/2024 11:29 AM EDT 11/10/2024 12:13 PM EDT us João Reyes MD LAB POINT OF CARE TE ST DOCKED DEVICE UNSOLICITED RESULTS Final Result [facility] [address] [place] [id number] * CO AN ELECTIVE ENDOTRACHEAL AIRWAY, PB ANESTHESIA PLACEHOLDER (11/10/2024 10:43 AM EDT) Narrative Sean Edge CRNA - 11/10/2024 10:43 AM EDT Sean Edge CRNA 11/10/2024 11:03 AM Airway Date/Time: 11/10/2024 10:43 AM Reason: elective Airway not difficult General Information and Staff Patient location during procedure: OR BENCH ASSEMBLER ELECTRICAL: Sean Edge CRNA Performed: GUADALU[place] Patient Condition [...] Adults <6.0% Children and Adolescents <7.5% Source: [place] [employer]. Standards of medical care in diabetes,2017. Diabetes Care.2017:40 (suppl 1):S1-S135. HbA1c assay performed by an ion-exchange chromatography method that is certified traceable to the DCCT. Liana FELICIANO LAB BLOOD ORDERABLES Final R esult Performing Organization Address City/[facility] Co de Phone Number HEALTHCARE LAB [address] [place] [address] * HIV 1 & 2 Antibody/Antigen Screen (02/12/2021 8:20 PM EDT) Pathologist [facility] HIV 1 & 2 Antibody/Anti gen Screen Nonreactive Nonreactive 02/12/2021 10:17 PM EDT HEALTHCARE LAB Blood Venous blood specimen / Unknown Venipuncture / Unknown 02/12/2021 8:20 PM EDT 02/12/2021 8:34 PM EDT Joanne Umaña MD LAB BLOOD ORDERABLES Final Res ult Performing Organization Address City/[facility] Co de Phone Number HEALTHCARE LAB [address] [place] [address] * Emmett Hepatitis C Antibody (02/12/2021 8:20 PM EDT) Pathologist [facility] Hepatitis C Antibody Negative Negative 02/12/2021 10:17 PM EDT HEALTHCARE LAB Blood Venous blood specimen / Unknown Venipuncture / Unknown 02/12/2021 8:20 PM EDT 02/12/2021 8:34 PM EDT Joanne Umaña MD LAB BLOOD ORDERABLES Final Res ult Performing Organization Address City/[facility] Co de Phone Number [facility] [address] [place] [address] from Last 3 Months or Most Recently [...] Patient has decision-making capacity? Yes Care Teams Hospitalist Medical Director Relationship Specialty Start Date End Date Omar De La Torre MD [address] [place] [address] PCP - General 11/24/20
--- OUTSIDE RECORDS SUMMARY | 2025-01-28 12:49 | XMS_ITS | Encounter Summary ---
Author Organization Healthcare Address [address] [place] [address] Care Team Providers Care Livestock Brands Inspector Name Role Phone Omar De La Torre MD Primary Care Provider [phone] Reason for Visit * Reason Onset Date Comments Med Refill 05/07/2021 Encounter Details Date Type Department Care Team (Late st Contact Info) Description 05/07/2021 Refill [facility] [address] [place] [id number] João Reyes MD [address] [address] Social History Tobacco Use Types [...] Author No 02/05/2021 1:25 PM EDT Anette aHuser RN documented in this encounter Miscellaneous Notes [...] optimal time of day to reach caller: [phone] Note: Please do not reply to this message. Follow-up communication and further actions as a result of this message need to be communicated with the patient directly, if the patient is not active onMyChart. If the patient is active on MyChart, they will receive notification of the communication/outcome via [employer]. documented in this encounter Plan of Treatment Not on file documented as of this encounter Visit Diagnoses Not on filedocumented in this encounter Additional Health Concerns Assessment Noted Time A fall risk assessment has been complete d for the patient 04/03/2021 11:28 AM EDT documented as of this encounter Care Teams Livestock Brands Inspector Relationship Specialty Start Date End Date Omar De La Torre MD [address] [place] [address] [address] [place] [address] PCP - General 11/24/20 documented as of this encounter
--- OUTSIDE RECORDS SUMMARY | 2025-01-28 12:49 | XMS_ITS ---
Author Organization Unknown Medications Medication Instructions Effective Dates (start - stop) Status acetaminophen 325 MG / hydro codone bitartrate 7.5 MG Oral Tablet 6226-22-97J86:00:00.000+ 00: 00 - Completed acetaminophen 325 MG / oxyco done hydrochloride 7.5 MG Oral Tablet 1846-45-65R25:00:00.0 00+00: 00 - Completed acetaminophen 325 MG / hydro codone bitartrate 7.5 MG Oral Tablet 5762-27-35A94:00:00.000+ 00: 00 - Completed sulfamethoxazole 800 MG / trimethoprim 160 MG Oral Tablet 2915-22-33X73:00:00.00 0+00: 00 - Completed sulfamethoxazole 800 MG / trimethoprim 160 MG Oral Tablet 8842-63-01U61:00:00.00 0+00: 00 - Completed lorazepam 1 MG [...] MG Oral Tablet :00:00.000+00: 00 - Completed furosemide 40 MG Oral Tablet 09-14-09T:00:00.000+00: 00 - Completed ondansetron 4 MG Disintegrat ing Oral Tablet 3518-94-77B46:00:00.000+00: 00 - Completed carvedilol 3.125 MG Oral Tablet 8037-64-55E20:00:00.000+00: 00 - Completed duloxetine 60 MG Delayed Rel ease Oral Capsule 2136-50-37S75:00:00.000+00: 00 - Completed Microencapsulated potassium chloride 20 MEQ Extended Release Oral Tablet 6386-40-26E17:00:00.000+00: 00 - Completed Microencapsulated potassium chloride 20 MEQ Extended Release Oral Tablet 7976-49-64N93:00:00.000+00: 00 - Completed nitrofurantoin, macrocrystal s 25 MG / nitrofurantoin, monohydrate 75 MG Oral Capsule 8364-13-00J14:00:00.000+00: 00 - Completed duloxetine 60 MG Delayed Rel ease Oral Capsule 9842-02-40N39:00:00.000+00: 00 - Completed duloxetine 60 MG Delayed Rel ease Oral Capsule 8025-73-24L75:00:00.000+00: 00 - Completed duloxetine 60 MG Delayed Rel ease Oral Capsule 1748-18-47D70:00:00.000+00: 00 - Completed duloxetine 60 MG Delayed Rel ease Oral Capsule 9677-04-90M25:00:00.000+00: 00 - Completed duloxetine 60 MG Delayed Rel ease Oral Capsule 9405-56-14Q84:00:00.000+00: 00 - Completed duloxetine 60 MG Delayed Rel ease Oral Capsule 2643-77-04T79:00:00.000+00: 00 - Completed duloxetine 60 MG Delayed Rel ease Oral Capsule 1721-33-81L26:00:00.000+00: 00 - Completed duloxetine 60 MG Delayed Rel ease Oral Capsule 5245-89-32H39:00:00.000+00: 00 - Completed promethazine hydrochloride 2 5 MG Oral Tablet 2272-05-01W29:00:00.000+00: 00 - Completed promethazine hydrochloride 2 5 MG Oral Tablet 7451-07-14Y99:00:00.000+00: 00 - Completed promethazine hydrochloride 2 5 MG Oral Tablet 3125-79-48G46:00:00.000+00: 00 - Completed promethazine hydrochloride 2 5 MG Oral Tablet 1351-34-76V47:00:00.000+00: 00 - Completed promethazine hydrochloride 1 2.5 MG Oral Tablet 5787-75-74J23:00:00.000+00: 00 - Completed promethazine hydrochloride 1 2.5 MG Oral Tablet 5323-61-45C75:00:00.000+00: 00 - Completed promethazine hydrochloride 1 2.5 MG Oral Tablet 7608-68-66A45:00:00.000+00: 00 - Completed carvedilol 3.125 MG Oral Tablet 2774-72-18Y38:00:00.000+00: 00 - Completed carvedilol 3.125 MG Oral Tablet 3780-95-18O38:00:00.000+00: 00 - Completed carvedilol 3.125 MG Oral Tablet 7860-12-22C96:00:00.000+00: 00 - Completed carvedilol 3.125 MG Oral Tablet 2683-10-11Q64:00:00.000+00: 00 - Completed carvedilol 3.125 MG Oral Tablet 1869-80-59R23:00:00.000+00: 00 - Completed carvedilol 3.125 MG Oral Tablet 8580-29-10N58:00:00.000+00: 00 - Completed carvedilol 3.125 MG Oral Tablet 2716-36-23V80:00:00.000+00: 00 - Completed carvedilol 3.125 MG Oral Tablet 0925-08-81Q92:00:00.000+00: 00 - Completed lamotrigine 100 MG Oral Tablet 037-66-05Q82:00:00.000+00: 00 - Completed ciprofloxacin 250 MG Oral Tablet 0348-23-13N20:00:00.000+00: 00 - Completed tramadol hydrochloride 50 MG Oral Tablet 9980-04-04X04:00:00.000+00: 00 - Completed tramadol hydrochloride 50 MG Oral Tablet 7079-75-31S52:00:00.000+00: 00 - Completed tramadol hydrochloride 50 MG Oral Tablet 4094-91-08R37:00:00.000+00: 00 - Completed tramadol hydrochloride 50 MG Oral Tablet 2098-45-28M86:00:00.000+00: 00 - Completed ondansetron 4 MG Oral Tablet 09-15-16:00:00.000+00: 00 - Completed tramadol hydrochloride 50 MG Oral Tablet 1416-87-95L31:00:00.000+00: 00 - Completed ibuprofen 600 MG Oral Tablet 08-25-04:00:00.000+00: 00 - Completed tizanidine 4 MG Oral Tablet 2022:00:00.000+00: 00 - Completed tizanidine 4 MG Oral Tablet 2022:00:00.000+00: 00 - Completed tizanidine 4 MG Oral Tablet 2022:00:00.000+00: 00 - Completed tizanidine 4 MG Oral Tablet 2022:00:00.000+00: 00 - Completed tizanidine 4 MG Oral Tablet 2021:00:00.000+00: 00 - Completed tizanidine 4 MG Oral Tablet 2022:00:00.000+00: 00 - Completed duloxetine 60 MG Delayed Rel ease Oral Capsule 0526-64-57Q78:00:00.000+00: 00 - Completed ibuprofen 800 MG Oral Tablet 08-20-25:00:00.000+00: 00 - Completed furosemide 20 MG Oral Tablet 09-15-04:00:00.000+00: 00 - Completed clindamycin 300 MG Oral Capsule 7140-84-57U86:00:00.000+00: 00 - Completed ibandronic acid 150 MG Oral Tablet 1861-37-64A74:00:00.000+00: 00 - Completed ibandronic acid 150 MG Oral Tablet 6796-94-80X77:00:00.000+00: 00 - Completed ibandronic acid 150 MG Oral Tablet 3829-85-40K79:00:00.000+00: 00 - Completed lamotrigine 200 MG Oral Tablet 2 317-35-34Z94:00:00.000+00: 00 - Completed lamotrigine 200 MG Oral Tablet 2 557-95-96Z14:00:00.000+00: 00 - Completed lamotrigine 200 MG Oral Tablet 2 683-37-88S17:00:00.000+00: 00 - Completed lamotrigine 200 MG Oral Tablet 2 616-14-55W04:00:00.000+00: 00 - Completed lamotrigine 200 MG Oral Tablet 2 587-61-72S49:00:00.000+00: 00 - Completed lamotrigine 200 MG Oral Tablet 2 362-76-17P24:00:00.000+00: 00 - Completed lamotrigine 200 MG Oral Tablet 2 059-18-71C21:00:00.000+00: 00 - Completed lamotrigine 200 MG Oral Tablet 2 030-22-02B13:00:00.000+00: 00 - Completed lamotrigine 200 MG Oral Tablet 2 008-98-97X55:00:00.000+00: 00 - Completed zolpidem tartrate 10 MG Oral Tablet 6608-73-59B33:00:00.000+00: 00 - Completed zolpidem tartrate 10 MG Oral Tablet 9329-01-48Q64:00:00.000+00: 00 - Completed zolpidem tartrate 10 MG Oral Tablet 8092-15-80F22:00:00.000+00: 00 - Completed zolpidem tartrate 10 MG Oral Tablet 0441-69-55Y16:00:00.000+00: 00 - Completed zolpidem tartrate 10 MG Oral Tablet 7601-37-43N21:00:00.000+00: 00 - Completed zolpidem tartrate 10 MG Oral Tablet 7976-55-99L82:00:00.000+00: 00 - Completed zolpidem tartrate 10 MG Oral Tablet 0431-37-40E55::00.000+00: 00 - Completed zolpidem tartrate 10 MG Oral Tablet 4270-60-75B91:00:00.000+00: 00 - Completed zolpidem tartrate 10 MG Oral Tablet 0583-43-15L00::00.000+00: 00 - Completed zolpidem tartrate 10 MG Oral Tablet 8904-71-51D57:00:00.000+00: 00 - Completed zolpidem tartrate 10 MG Oral Tablet 3912-43-69U15:00:00.000+00: 00 - Completed zolpidem tartrate 10 MG Oral Tablet 8691-50-98W26:00:00.000+00: 00 - Completed oxycodone hydrochloride 5 MG Oral Tablet 6372-18-22P02:00:00.000+00: 00 - Completed oxycodone hydrochloride 5 MG Oral Tablet 5695-99-33A79:00:00.000+00: 00 - Completed oxycodone hydrochloride 5 MG Oral Tablet 4587-67-65F16:00:00.000+00: 00 - Completed oxycodone hydrochloride 5 MG Oral Tablet [id number]:00:00.000+00: 00 - Completed oxycodone hydrochloride 5 MG Oral Tablet [id number]:00:00.000+00: 00 - Completed oxycodone hydrochloride 5 MG Oral Tablet 3065-41-31P67:00:00.000+00: 00 - Completed - 0931-14-70Q52:00 :00.000+00: 00 - Completed potassium chloride 10 MEQ Ex tended Release Oral Tablet 4384-36-83R45:00:00.000+00: 00 - Completed Patient Care team information Name Category Status Period Participants - - Proposed period not known -
--- OUTSIDE RECORDS SUMMARY | 2025-01-28 12:49 | XMS_ITS | Clinical Summary ---
Author Organization [employer] ([place], [place], [place], [place]) Address [address] [place] [address] Care Team Providers Care Internal Salesperson Name Role Phone Omar De La Torre MD Primary Care Provider [phone] Allergies Active Allergy Reactions Criticality Noted Date [...] Type Department Care Team Description 11/05/2024 Abstract [facility] [address] [facility] [address] [place] [address] Jose Ortega MD from Last 3 Months Social History Tobacco [...] Date Wild rded Speak language other than Sri Lankan at home Not on file 08/01/2023 Want [...] Description 02/23/2025 10:00 AM EDT Office Visit [facility] - [email or web address] [email or web address] [place] [id number] Jose Ortega MD [email or web address] [place] [address] Health Maintenance Due Date Last Done Comments [...] 60-74 years 1-dose series) 2020 COVID-19 VACCINE (3 - season) 03/14/202403/2021, 07/11/2020 Influenza Vaccine (#1) 2025 Tobacco Cessation Counseling and Screening (12+) 10/25/2025 10/25/2024 Medical Devices Implanted Type Area Customer Care Representative Device Identifier Shelf Expiration Date Model / Serial / Lot Bone Luis Formable Bl-1600-001 - [id number] Implanted:Qty : 1 on 10/30/2022 by Duane Friedman MD at [facility] IMPLANTS N/A: Spine Cervical LIFENET:LIFENET TRANSPLANT SRV 10/11/2023 BL-1600-0 01 / [id number] / Cage Eit Cif H 5mm 8d S [id number] - [id number] Implanted:Qty : 1 on 10/30/2022 by Duane Friedman MD at [facility] IMPLANTS N/A: Spine Cervical J &J:DEPUY:DEPUY SPINE 01/10/2026 [id number] / / [id number] Cage Eit Cif H 5mm 8d S [id number] - [id number] Implanted:Qty : 1 on 10/30/2022 by Duane Friedman MD at [facility] IMPLANTS N/A: Spine Cervical J &J:DEPUY:DEPUY SPINE 07/13/2023 [id number] / / [id number] Cage Eit Cif H 5mm 8d S [id number] - [id number] Implanted:Qty : 1 on 10/30/2022 by Duane Friedman MD at [facility] IMPLANTS N/A: Spine Cervical J &J:DEPUY:DEPUY SPINE 01/10/2026 [id number] / / [id number] Plt Ant Skyln Hybrd Lvl3 45mm 045 - [id number] Implanted:Qty : 1 on 10/30/2022 by Duane Friedman MD at [facility] IMPLANTS N/A: Neck J &J:DEPUY:DEPUY SPINE 03-0 45 / 1867-09-0 45 / Scr Skyln Vari Sd 18mm -018 - [id number] Implanted:Qty : 8 on 10/30/2022 by Duane Friedman MD at [facility] IMPLANTS N/A: Neck J &J:DEPUY:DEPUY SPINE 50-0 18 / 50-0 18 / Insurance BLUE CROSS/BLUE SHIELD Advance Directives For more information, please contact: [phone] Documents on File Type Date Recorded Patient Regional Controller Expl anation Advance Directives and Livin g Will 10/30/2022 6:04 AM * Full Code (Latest Code Status on File) Date Activated Date Inactivated Comments 10/30/2022 10:48 AM 11/04/2022 1:55 PM Care Teams Internal Salesperson Relationship Specialty Start Date End Date Omar De La Torre MD [address] [place] [phone] PCP - General General Internal Medicine 10/16/22
--- OUTSIDE RECORDS SUMMARY | 2025-01-28 12:49 | XMS_ITS | Encounter Summary ---
Author Organization Healthcare Address [address] [place] [address] Care Team Providers Care Launchman Name Role Phone Omar De La Torre MD Primary Care Provider [phone] Encounter Details Date Type Department Care Team (Late st Contact Info) Description 09/26/2021 Lab Requisition [facility] [address] [place] [address] João Reyes MD [address] [address] Benign neoplasm of other specified sites Social [...] Exam (09/26/2021) Case Report Surgical Pathology Case: [id number] Authorizing Provider: João Reyes MD Collected: 09/26/2021 Ordering Location: [facility] Lab Received: 09/26/2021 1239 Pathologist: Komal Negron MD Specimen: Wrist, Right, Right wrist neuroma 09/27/2021 11:40 AM EDT [facility] Final Diagnosis A. SOFT TISSUE MASS, RIGHT WRIST, EXCISION: - NEUROMA. 09/27/2021 11:40 AM EDT [facility] at 1140 EDT Clinical Information Right wrist hardware failure, right wrist neuroma 09/27/2021 11:40 AM EDT HEALTHCARE LAB Gross Description A. RIGHT WRIST NEUROMA The specimen is received in formalin labeled right wrist neuroma , and consists of a 2.5 x 0.6 x 0.5 cm pink-harding fibrous tissue fragment. Entirely submitted in cassette A1. Kimberly Montgomery 09/27/2021 11:40 AM EDT [facility] Tissue Structure of right wrist region / Unknown 09/26/2021 09/26/2021 12:39 PM EDT João Reyes MD LAB PATHOLOGY ORDERABLES Alisha boone Result [facility] [address] [place] [address] documented in this encounter Visit Diagnoses Diagnosis Benign neoplasm of other specified sites documented in this encounter Additional Health Concerns Assessment Noted Time A fall risk assessment has been complete d for the patient 09/11/2021 10:48 AM EST documented as of this encounter Care Teams Launchman Relationship Specialty Start Date End Date Omar De La Torre MD [address] [place] [address] [address] [place] [address] PCP - General 11/24/20 documented as of this encounter
--- OUTSIDE RECORDS SUMMARY | 2025-01-28 12:49 | XMS_ITS | Encounter Summary ---
Author Organization Healthcare Address [address] [place] [address] Care Team Providers Care Supervisor Machine Workers Name Role Phone Omar De La Torre MD Primary Care Provider [phone] Reason for Visit * Reason Onset Date Comments HCN - Rx Refill Request 10/05/2021 Encounter Details Date Type Department Care Team (Late st Contact Info) Description 10/05/2021 Telephone [facility] [address] [place] [address] João Reyes MD [address] [address] HCN - Rx Refill Request [...] Preferred Pharmacy & Location: [facility] Days of medication remaining (if under 3 days please sandra as urgent): 0 Best contact number and optimal time of day to reach caller: [phone] Additional comments/information from caller: Note: Please do not reply to this message. Follow-up communication and further actions as a result of this message need to be communicated with the patient directly, if the patient is not active onMyChart. If the patient is active on MyChart, they will receive notification of the communication/outcome via [employer]. documented in this encounter Plan of Treatment Not on file documented as of this encounter Visit Diagnoses Not on filedocumented in this encounter Additional Health Concerns Assessment Noted Time A fall risk assessment has been complete d for the patient 09/11/2021 10:48 AM EST documented as of this encounter Care Teams Supervisor Machine Workers Relationship Specialty Start Date End Date Omar De La Torre MD [address] [place] [address] [address] [place] [address] PCP - General 11/24/20 documented as of this encounter
--- OUTSIDE RECORDS SUMMARY | 2025-01-28 12:49 | XMS_ITS | Data Portability ---
Author Organization [facility] [place] [facility] Address [address] [facility] [address] [place] [address] Care Team Providers Care Black Ash Burner Operator Name Role Phone YURY ZAVALANichelle Zaragoza Primary Care Provider [phone] Assessment Encounter Date Assessment Date Assessment LastModified [...] postop visit. Patient spent several weeks at [facility]. She is currently working with physical therapy [...] plan. -Seen by Dr. Friedman and myself [email or web address] Not available 01/27/2023 16:39:11 05/29/2023 05/29/2023 Mrs. [...] to see a plastic surgeon at the [facility] at the end of the month [...] is satisfied with this plan of care. [email or web address] Not available 10/25/2024 15:01:06 Plan of Treatment [...] By Organization Details Last Modified Time 01/27/2023 [id number] CATEGORY DESCRIPTION MINUTES Prepare to see the patient (e.g. review of tests) 5 Obtain/review separately obtained history 5 Perform medically appropriate exam/evaluation 5 Order medications, tests, or procedures Weather Stripper/educate the patient/family/car egiver 5 Refer/communicate w/other healthcare professionals 5 Document clinical information into health record 5 Non-billable independent interp of results Non-billable care coordination TOTAL TIME 30 91792 (15-29) 63141 (30-44) 51310 (45-59) 43830 (60-74) 46722 (10-19) 80668 (20-29) 10444 (30-39) 50162 (40-54) [email or web address] Not available 01/27/2023 16:39:21 Reason for Referral None Reported. Results Created Date Observation Date Name Description Value Unit Range Abnormal Flag Note LastModifiedBy Organization Detail LastModifiedTime 11/29/19 23 11/28/2022 XR, cervi chace spine , 2 or 3 view Kiesha [place] [facility] [address] [facility] [address] Patien t Name: MARIA L ALEXANDRE ON [...] Leyda Arnold MD on 023 3:10 PM [email or web address] [facility] [address] [place] [address], [address], 01/06/2023 13:17:08 01/28/20 23 01/27/2023 XR, cervi chace spine , 2 or [address] [place] [address] Patiesme t Name: MARIA L ALEXANDRE ON [...] Leyda Arnold MD on 023 1:08 PM [email or web address] [facility] [address] [place], [address], 02/11/2023 06:39:11 05/29/20 23 05/29/2023 XR, cervi chace spine , 2 or [address] [address] Patien t Name: MARIA L ALEXANDRE ON [...] Leyda Arnold MD on 2022 11:38 AM [email or web address] [facility] [address], [address], 06/13/2023 10:32:05 01/21/20 25 01/20/2025 imagi ng/di agnos tic resul t No observ ation record ed. JUDITH Not Available 2024 16:42:10 01/26/20 25 01/20/2025 MRI, cervi chace spine , w/o contr ast No observ ation record ed. [facility] [address], [place], [address], 01/25/2025 13:31:40 Result Notes Documentation Provider Name and Address Organization Details Recorded Time Xr, Cervical Spine, 2 Or 3 View : [address] [address] Patient Name: PAIGE KENNEDY Patient : 1960 [...] Interpreted By: Sebastian Arnold MD Arjun Gomez [facility] 01/06/2023 13:17:08 Xr, Cervical Spine, 2 Or 3 View : [place] [address] Patient Name: PAIGE KENNEDY Patient : 1960 [...] Interpreted By: Sebastian Arnold MD Arjun Gomez [facility] 02/11/2023 06:39:11 Xr, Cervical Spine, 2 Or 3 View : [place] [address] Patient Name: PAIGE KENNEDY Patient : 1960 [...] levels. 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 881562834 Active 2014 From Automated Load;Provi alberto: Sundeep Russo;Sta tus: Active Not Available [facility] 6 07:17:48 Spondylol isthesis 748853399 Active 2014 From Automated Load;Provi alberto: Sundeep Russo;Sta tus: Active Not Available [facility] 6 07:17:48 Pain in right lower limb 568256365 Active 2015 From Automated Load;Provi alberto: Francisca Friedman;St atus: Active Not Available [facility] 6 07:17:48 Clinical finding Active 2015 Provider: Nahed Cesar: Active Not Available formerly [facility] 6 07:17:48 Lumbar radiculop athy 133205770 Active 2019 HELENA ZHONG PA-C [address] [place], [address] , [facility] 0 13:59:06 Recurrent falls 853398965 Active 2019 HELENA ZHONG PA-C [address] [place], [address] , [facility] 0 13:59:07 Problem Notes None recorded. Medical Equipment None Reported. Allergies Allergen ID Allergen Name Allergen Category Reaction Reaction Severity Criticality Documentation Date Start Date Code Code System Note Provider Name and Address Organization Details Recorded Time 844636 morphine sulfate medicatio n Not available Not available Not available 06/06/20162009 88107 RxNorm Comme nt: Creat ed By: Karli Núñez ra;Cr eated Date: 2009 12:23 :36 PM; Not Available [facility] 6 10:13:45 178268 Keflex medicatio n Not available Not available Not available 06/06/20162009 30667 7 RxNorm Comme nt: Creat ed By: Karli Núñez ra;Cr eated Date: 2009 12:23 :12 PM; Not Available [facility] 6 14:24:18 618567 Product containin g penicilli n (product) medicatio n Not available Not available Not available 06/07/20162009 70144 8001 SNOMED Comme nt: Creat ed By: Karli Núñez ra;Cr eated Date: 2009 12:23 :20 PM; Not Available [facility] 6 04:55:17 Medications Name Sig Start [...] Updated DateTime 10/25/2024 171.45 cm 30.1 kg/m2 92659.51 g 124/74 mm[Hg] [facility] 10/25/2024 13:49:10 Date Recorded Body height Body mass index (BMI) Body weight Systolic And Diastolic Provider Name and Address Organization Details Last Updated DateTime 11/28/2022 171.45 cm 30.1 kg/m2 74851.51 g 142/82 mm[Hg] Tracie Alas [facility] 11/28/2022 14:54:15 Date Recorded Body height Body mass index (BMI) Body weight Systolic And Diastolic Provider Name and Address Organization Details Last Updated DateTime 01/27/2023 171.45 cm 30.1 kg/m2 64188.51 g 114/68 mm[Hg] Mireya Kumar [facility] 01/27/2023 11:10:24 Date Recorded Body height Body mass index (BMI) Body weight Systolic And Diastolic Provider Name and Address Organization Details Last Updated DateTime 05/29/2023 171.45 cm 30.1 kg/m2 90597.51 g 120/80 mm[Hg] [facility] 05/29/2023 11:10:21 Social History None recorded. Functional Status None recorded. Mental Status None recorded. Family History Nothing Reported. Medical History No medical history recorded. Gynecological HistoryNo gynecological history recorded. Obstetrics History GPAL:G 0 P 0 0 0 0 Past Encounters Encounter ID Performer Location Encounter Start Date Encounter Closed Date Diagnosis/Indication Diagnosis SNOMED-CT Code Diagnosis ICD10 Code Diagnosis Note [id number] HELENA ZHONG PA-C [facility] [address] [facility] [place] [address] 05/01/2020 13:02:58 05/03/2020 21:07:25 Lumbar radiculopathy 514585262 M54.16 Recurrent falls 89782232 2 R29.6 [id number] CRISTIANO FERRARI, SALESPERSON [facility] [address] [place] [address] 07/18/2022 09:57:38 07/19/2022 16:26:29 Lumbar radiculopathy 570928353 M54.16 Cervical spondylosis 387 332334 M47.812 [id number] FRANCISCA FRIEDMAN MD [facility] [address] [place] [address] 09/02/2022 14:35:26 09/03/2022 04:26:03 Spinal stenosis in cervical region 32112776 M48.02 [id number] FRANCISCA FRIEDMAN MD SURGERY SCHEDULE [address] [place] [address] 11/14/2022 11:28:25 11/14/2022 13:17:57 [id number] FRANCISCA FRIEDMAN MD [facility] [address] [place] [address] 11/28/2022 14:07:02 12/07/2022 04:43:35 Postoperative care 756005090 Z48.89 [id number] BRITNEY ZAVALA PA-C [facility] [address] [place] [id number] 01/27/2023 10:41:22 01/28/2023 05:03:22 Cervical myelopathy 612897987 G95.9 [id number] FRANCISCA FRIEDMAN MD [facility] [address] [place] [address] 05/29/2023 10:52:59 05/30/2023 04:26:26 Postoperative care 967897780 Z48.89 [id number] CRISTIANO FERRARI, SALESPERSON [facility] [address] [place] [address] 10/25/2024 13:35:22 10/26/2024 05:04:13 Cervical spondylosis 859721184 M47.812 Mckeon's reflex positive 671725096 R29.2 Impairment of balance 38 4782955 R26.89 Poor manual dexterity 30 6860530 R29.898 Health Concerns Section Related Observation LastModified by Organization Detai ls LastModified Time None Recorded Concern Status LastModified by Organization Details LastModified Time None Recorded Advance Directives Directive None Recorded Payers Insurance Date Sequence Insurance Name Policy Number Policy Lozano Covered Member ID Lozano Member ID Guarantor Name 01/07/2025 1 [place] [id number] Paige Kennedy [id number] Paige Kennedy 08/24/2023 PAYMENT PLAN Paige Kennedy Notes Date Note Type Note Provider Name and Address Organization Details Recorded Time 11/28/2022 text/html Mrs. Kennedy is a 62-year-old female that underwent an C3-C6 ACDF for cord compression. This was performed on October 30, 2022. She presents today for first postoperative visit with x-rays. FRANCISCA FRIEDMAN MD [address] [place] [address], [address], [facility] 12/06/2022 09:26:49 01/27/2023 text/html Mrs. Kennedy is a 62-year-old female that underwent an C3-C6 ACDF for cord compression on October 30, [address] Friedman presents today for second postop visit. Patient spent several weeks at [facility]. She is currently working with physical therapy twice a week. She reports improvement of upper and lower extremity strength. She reports left neck pain that radiates down the arm and into the thumb. Dysphagia is improving. She continues to use a walker at home. She is in a wheelchair today. She has new x-rays today. BRITNEY ZAVALA PA-C [address] [place] [address], [address], [facility] 01/27/2023 16:39:32 05/29/2023 text/html Mrs. Kennedy is [...] headaches, unresponsive to Tylenol. FRANCISCA FRIEDMAN MD [address] [place], [address], [facility] 05/29/2023 11:47:55 10/25/2024 text/html Ms. Kennedy is a 64-year-old female who returns to the office after last being seen 05/29/2023 with reports of continued and worsening posterior neck pain to her lateral left shoulder associated with numbness into her hands. She previously had a C3-6 ACDF for cord compression with Dr. Friedman on 10/30/2022. CRISTIANO FERRARI APRN [address] [place], [address], [facility] 10/25/2024 15:01:40 OBGyn Episode No OBEpisode recorded.
--- OUTSIDE RECORDS SUMMARY | 2025-01-28 12:49 | XMS_ITS | Encounter Summary ---
Author Organization [facility] Address [address] [place] [address] Care Team Providers Care Hospital Nursing Assistant Name Role Phone Omar De La Torre MD Primary Care Provider [phone] Encounter Details Date Type Department Care Team (Late st Contact Info) Description 01/11/2025 Telephone [facility] [address] [place] [address] João Reyes MD [address] [address] Social History Tobacco Use Types [...] documented as of this encounter Care Teams Hospital Nursing Assistant Relationship Specialty Start Date End Date Omar De La Torre MD [address] [place] [address] [address] [place] [address] PCP - General 11/24/20 documented as of this encounter
--- OUTSIDE RECORDS SUMMARY | 2025-01-28 12:49 | XMS_ITS | Clinical Summary ---
Author Organization [facility] Address [address] [place] [address] Care Team Providers Care Track Template Maker Name Role Phone Mason Cleaning MD Primary Care Provider [phone] Allergies Active Allergy Reactions Criticality Noted Date Comments Cephalexin Myalgia High 09/20/2016 Morphine And Codeine Itching High 09/20/2016 Penicillins Rash High 09/20/2016 Medications ARIPiprazole (ABILIFY) 5 MG tablet 09/09/2016 Active carvedilol (COREG) 12.5 MG tablet 09/08/2016 Active cyanocobalamin 1000 MCG/ML injection 09/08/2016 Active diclofenac-miso prostol (ARTHROTEC 75) 75-0.2 MG EC tablet 09/08/2016 Active DULoxetine (CYMBALTA) 60 MG capsule 09/08/2016 Active furosemide (LASIX) 40 MG tablet 08/14/2016 Active gabapentin (NEURONTIN) 800 MG tablet 09/18/2016 Active lamoTRIgine (LaMICtal) 200 MG tablet 09/08/2016 Active LORazepam (ATIVAN) 0.5 MG tablet 08/12/2016 Active montelukast (SINGULAIR) 10 MG tablet 09/08/2016 Active OXcarbazepine (TRILEPTAL) 300 MG tablet 09/09/2016 Active raNITIdine (ZANTAC) 300 MG tablet 09/08/2016 Active omeprazole (priLOSEC) 40 MG capsule TAKE 1 CAPSULE BY MOUTH ONCE DAILY 90 capsule 1 10/30/2016 Active Active Problems Problem Noted Date Diagnosed Date Vitamin D deficiency 09/29/2016 B12 deficiency 09/29/2016 Iron deficiency anemia 09/29/2016 Status post bariatric surgery 09/29/2016 Generalized OA HTN (hypertension) CHF (congestive heart failure) GERD (gastroesophageal reflux disease) Gastritis Depression with anxiety Irritable bowel syndrome (IBS) Overview (09/20/2016): diarrhea Migraine Social History Tobacco Use Types Packs/Day Years Used Date Smoking Tobacco: Never Smokeless Tobacco: Never Alcohol Use Standard Drinks/Week Comments No 0 (1 standard drink = 0.6 oz pur e alcohol) Abuse Screen Answer Date Recorded Unsafe at Home or Work/School Not on file Feels Threatened by Someone? Not on file 03/2023 Does Anyone Keep You from Co ntacting Others or Doint Things Outside the Home? Not on file 04/21/2023 Physical Sign of Abuse Present Not on file 1 Housing Stability Answer Date Recorded Current Living Arrangements Not on file 03/2023 Potentially Unsafe Housing Conditions Not on anu e 04/21/2023 Family and Community Support Answer French e Recorded Help with Day-to-Day Activities Not on file 04/21/2023 Lonely or Isolated Not on file 04/21/2023 Employment Answer Date Recorded Do you want help finding or keeping work or a jaimee b? Not on file 04/21/2023 Disabilities Answer Date Recorded Concentrating, Remembering, or Making Decisions Difficulty Not on file 04/21/2023 Doing Errands Independently Difficulty Not on fi le 04/21/2023 Education Answer Date Recorded Help with school or training? Not on file Preferred Language Not on file 04/21/2023 Comments Unknown Sex and Gender Information Value Date Recorded Sex Assigned at Not on file Legal Sex Female 10:41 AM EDT Gender Identity Not on file Sexual Orientation Not on file Last Filed Vital Signs Vital Sign Reading Time Taken Comments Blood Pressure 136/72 09/20/2016 9:16 AM EST Pulse 77 09/20/2016 9:16 AM EST Temperature 36.6 C (97.9 F) 09/20/2016 9:16 AM EST Respiratory Rate 18 09/20/2016 9:16 AM EST Oxygen Saturation 98% 09/20/2016 9:16 AM EST Inhaled Oxygen Concentration - - Weight 109 kg (240 lb 8 oz) 09/20/2016 9:[address] Height 170.2 cm (5' 7 ) 09/20/2016 9:16 AM EST Body Mass Index 37.67 09/20/2016 9:16 AM EST Plan of Treatment Health Maintenance Due Date Last Done Comments Annual Gynecologic Pelvic and Breast Exam 1960 Pneumococcal Vaccine 50+ (1 of 2 - PCV) 1979 TDAP/TD VACCINES (1 - Tdap) 1979 MAMMOGRAM 2000 COLOGUARD 2005 COLON CANCER SCREENING 5 YEAR SIGMOIDOSCOPY 2005 COLONOSCOPY [address]ER SCREENING [address] COLONOGRAPHY 2005 FECAL OCCULT BLOOD TEST 2005 FIT Testing (1 year) 2005 ZOSTER VACCINE (1 of 2) 2010 ANNUAL PHYSICAL 11/25/2016 HEPATITIS C SCREENING 11/25/2016 COVID-19 Vaccine ( season) 2024 INFLUENZA VACCINE 04/13/2025 Insurance [employer] Care Teams Track Template Maker Relationship Specialty Start Date End Date Mason Cleaning MD [address] [facility] [address] ATTN: FE [place] [address] PCP - General Emergency Medicine 09/20/16
--- OUTSIDE RECORDS SUMMARY | 2025-01-28 12:49 | XMS_ITS | Referral Summary ---
Author Organization [employer] ([place], [place], [place], [place]) Address [address] [place] [address] Care Team Providers Care Top Edge Beveler Name Role Phone Omar De La Torre MD Primary Care Provider Encounters Date Type Department Care Team Description 11/05/2024 Abstract [facility] [address] [facility] [address] [place] [address] Jose Ortega MD from Last 3 Months Allergies Active Allergy [...] migraine in 24 hours.. 16 tablet 10/26/19 25 Active syringe with needle (BD [...] Date Wild rded Speak language other than Russian at home Not on file 08/01/2023 Want [...] Description 02/23/2025 10:00 AM EDT Office Visit [facility] Neurology - [place] [address] [address] [place] [phone] Jose Ortega MD Counts include 234 beds at the [facility] locr [facility] [address] [place] [id number] Medical Devices Implanted Type Area Pipe Recovery Specialist Device Identifier Shelf Expiration Date Model / Serial / Lot Bone Vivigen Formable Bl-1600-001 - [id number] Implanted:Qty : 1 on 10/30/2022 by Duane Friedman MD at [facility] IMPLANTS N/A: Spine Cervical LIFENET:LIFENET TRANSPLANT SRV 10/11/2023 BL-1600-0 / [id number] / Cage Eit Cif H 5mm 8d S [id number] - [id number] Implanted:Qty : 1 on 10/30/2022 by Duane Friedman MD at [facility] IMPLANTS N/A: Spine Cervical J &J:DEPUY:DEPUY SPINE 01/10/2026 [id number] / / [id number] Cage Eit Cif H 5mm 8d S [id number] - [id number] Implanted:Qty : 1 on 10/30/2022 by Duane Friedman MD at [facility] IMPLANTS N/A: Spine Cervical J &J:DEPUY:DEPUY SPINE 07/13/2023 [id number] / / [id number] Cage Eit Cif H 5mm 8d S [id number] - [id number] Implanted:Qty : 1 on 10/30/2022 by Duane Friedman MD at [facility] IMPLANTS N/A: Spine Cervical J &J:DEPUY:DEPUY SPINE 01/10/2026 [id number] / / [id number] Plt Ant Skyln Hybrd Lvl3 45mm 1867-09-045 - [id number] Implanted:Qty : 1 on 10/30/2022 by Duane Friedman MD at [facility] IMPLANTS N/A: Neck J &J:DEPUY:DEPUY SPINE 1867-03-0 45 / 03-0 45 / Scr Skyln Vari Sd 18mm 50-018 - [id number] Implanted:Qty : 8 on 10/30/2022 by Duane Friedman MD at [facility] IMPLANTS N/A: Neck J &J:DEPUY:DEPUY SPINE 50-0 18 / 50-0 18 / Insurance BLUE CROSS/BLUE SHIELD Advance Directives For more information, please contact: [phone] Documents on File Type Date 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
--- OUTSIDE RECORDS SUMMARY | 2025-01-28 12:49 | XMS_ITS | Encounter Summary ---
Author Organization [employer] ([place], [place], [place], [place]) Address [address] [place] [address] Care Team Providers Care First Leveler Name Role Phone Omar De La Torre MD Primary Care Provider [phone] Encounter Details Date Type Department Care Team (Late st Contact Info) Description 11/05/2024 Abstract [facility] Neurology - [address] [place] [phone] Jose Ortega MD [facility] [address] [place] [address] Social History Tobacco Use Types [...] Date Wild rded Speak language other than Kuwaiti at home Not on file 08/01/2023 Want [...] Description 02/23/2025 10:00 AM EDT Office Visit [facility] Neurology - [address] [facility] [address] [place] [phone] Jose Ortega MD [address] [facility] [address] [place] [address] documented as of this encounter Visit Diagnoses Not on filedocumented in this encounter Care Teams First Leveler Relationship Specialty Start Date End Date Omar De La Torre MD [address] [place] [phone] PCP - General General Internal Medicine 10/16/22 documented as of this encounter
--- NOTE | 2025-01-28 13:00 | US_ITS ---
FINAL REPORT CLINICAL HISTORY: lump on Lt medial back -- pt states noticed after a fall FINDINGS: Limited sonographic images were obtained of the soft tissues of the left medial back at the region of reported palpable abnormality. There is a hypoechoic structure in the region of interest of the left back measuring 2.6 x 1.4 x 2.1 cm. This demonstrates increased through transmission which makes complex fluid more likely etiology over solid mass. IMPRESSION: Hypoechoic masslike structure in the region of interest. Given clinical history, recommend 4-6 week directed ultrasound follow-up to exclude underlying mass. Reviewed, Interpreted and Dictated by Herbert Jeronimo MD Transcribed by Sana Shahid Authenticated and [facility]
== END 2025-01-28 23:59 | disposition home or self-care (01) ==
LOC: RAD 12:46
PROVIDERS: PCP Internal Medicine; Visit Provider Internal Medicine
DX: R22.2 Localized swelling, mass and lump, trunk (principal)
CPT/HCPCS: 76604

== ENCOUNTER 2025-02-15 01:03 | Observation (INO) | payer BC, SELFPAY ==
[2025-02-15] VITALS (16 sets, daily range): BP systolic 133–192; BP diastolic 71–100; PULSE 66–81; RESP 14–20; TEMP 36.7–36.8; O2SAT 90–100; BMI 32.8; BMI 33.2
--- NOTE | 2025-02-15 01:02 | CT_ITS ---
PROCEDURE INFORMATION: Exam: CTA Neck With Contrast Exam date and time: 02/15/2025 1:46 AM Age: 64 years old Clinical indication: Injury or trauma; Additional info: Trauma, critical injury suspected TECHNIQUE: Imaging protocol: Computed tomographic angiography of the neck with contrast. Exam focused on the cervical segments of the vasculature. 3D rendering (Not supervised by radiologist): MIP and/or 3D reconstructed images were created by the technologist. Radiation optimization: All CT scans at this facility use at least one of these dose optimization techniques: automated exposure control; mA and/or kV adjustment per patient size (includes targeted exams where dose is matched to clinical indication); or iterative reconstruction. Contrast material: ISOVUE; Contrast volume: 80 ml; Contrast route: INTRAVENOUS (IV); COMPARISON: CT CERVICAL SPINE WO CON 02/15/2025 1:37 AM FINDINGS: Right common carotid artery: No stenosis. No dissection or occlusion. Right internal carotid artery: Calcified and noncalcified atherosclerotic disease of the proximal right internal carotid artery without significant stenosis. Right external carotid artery: No occlusion or stenosis of the origin. Left common carotid artery: No stenosis. No dissection or occlusion. Left internal carotid artery: Calcified and noncalcified atherosclerotic disease of the proximal left internal carotid artery without significant stenosis. Left external carotid artery: No occlusion or stenosis of the origin. Right vertebral artery: No stenosis. No dissection or occlusion. Left vertebral artery: No stenosis. No dissection or occlusion. Soft tissues: Normal. No significant soft tissue swelling. Bones/joints: Please see concurrently performed CT of the cervical spine. IMPRESSION: No acute vascular findings. REFERENCES: NASCET CRITERIA. The degree of stenosis in the cervical segment of the internal carotid artery is based on NASCET criteria. Normal is no stenosis. Mild is less than 50% stenosis. Moderate is 50-69% stenosis. Severe is 70% to 99% stenosis. Total occlusion is no detectable patent lumen.
--- NOTE | 2025-02-15 01:02 | CT_ITS ---
PROCEDURE INFORMATION: Exam: CT Lumbar Spine Without Contrast Exam date and time: 02/15/2025 1:42 AM Age: 64 years old Clinical indication: Injury or trauma; Additional info: Trauma, critical injury suspected TECHNIQUE: Imaging protocol: Computed tomography of the lumbar spine without contrast. Radiation optimization: All CT scans at this facility use at least one of these dose optimization techniques: automated exposure control; mA and/or kV adjustment per patient size (includes targeted exams where dose is matched to clinical indication); or iterative reconstruction. COMPARISON: CR XR LUMBAR SPINE MIN 4V 08/16/2019 10:50 AM FINDINGS: Bones/joints: No acute fracture. Mild degenerative retrolisthesis of L2 on L3 with mild central canal narrowing. Severe disc space narrowing and marginal osteophytosis at T12-L1, L1-L2. Severe disc space narrowing at L4-L5 and L5-S1. Soft tissues: Unremarkable. IMPRESSION: 1. No acute fracture. 2. Mild degenerative retrolisthesis of L2 on L3 with mild central canal narrowing. 3. Multilevel degenerative disc disease, as described above.
--- NOTE | 2025-02-15 01:02 | CT_ITS ---
PROCEDURE INFORMATION: Exam: CT Head Without Contrast Exam date and time: 02/15/2025 1:34 AM Age: 64 years old Clinical indication: Injury or trauma; Additional info: Trauma, critical injury suspected TECHNIQUE: Imaging protocol: Computed tomography of the head without contrast. Radiation optimization: All CT scans at this facility use at least one of these dose optimization techniques: automated exposure control; mA and/or kV adjustment per patient size (includes targeted exams where dose is matched to clinical indication); or iterative reconstruction. COMPARISON: CT HEAD/BRAIN WO CON 12/04/2022 3:55 PM FINDINGS: Brain: Atrophy and chronic small vessel ischemic changes. No hemorrhage. No mass effect or midline shift. Cerebral ventricles: No ventriculomegaly. Paranasal sinuses: Visualized sinuses are unremarkable. No fluid levels. Mastoid air cells: Visualized mastoid air cells are well aerated. Bones: Unremarkable. No acute fracture. Soft tissues: A mild scalp hematoma with tiny focus of soft tissue gas in the right lateral supraorbital region. IMPRESSION: Chronic changes in the brain but no acute intracranial abnormality.
--- NOTE | 2025-02-15 01:02 | CT_ITS ---
PROCEDURE INFORMATION: Exam: CTA Chest With Contrast Exam date and time: 02/15/2025 1:50 AM Age: 64 years old Clinical indication: Injury or trauma; Additional info: Trauma, critical injury suspected TECHNIQUE: Imaging protocol: Computed tomographic angiography of the chest with contrast. Exam focused on the arteries. 3D rendering (Not supervised by radiologist): MIP and/or 3D reconstructed images were created by the technologist. Radiation optimization: All CT scans at this facility use at least one of these dose optimization techniques: automated exposure control; mA and/or kV adjustment per patient size (includes targeted exams where dose is matched to clinical indication); or iterative reconstruction. Contrast material: ISOVUE; Contrast volume: 80 ml; Contrast route: INTRAVENOUS (IV); COMPARISON: CR XR CHEST 2V 07/29/2024 1:33 PM FINDINGS: Pulmonary arteries: Normal. No pulmonary emboli. Aorta: Unremarkable. No aortic aneurysm. No aortic dissection. Lungs: Calcified granulomata in the left lung. Pleural spaces: Unremarkable. No pneumothorax. No pleural effusion. Heart: Unremarkable. No cardiomegaly. No pericardial effusion. Lymph nodes: Calcified left hilar lymph nodes. Bones/joints: Mild scoliosis. Degenerative changes in the spine. Soft tissues: Unremarkable. IMPRESSION: 1. No pulmonary embolus. 2. No acute findings. 3. Evidence of prior granulomatous exposure.
--- NOTE | 2025-02-15 01:02 | CT_ITS ---
PROCEDURE INFORMATION: Exam: CT Cervical Spine Without Contrast Exam date and time: 02/15/2025 1:37 AM Age: 64 years old Clinical indication: Injury or trauma; Additional info: Trauma, critical injury suspected TECHNIQUE: Imaging protocol: Computed tomography of the cervical spine without contrast. Radiation optimization: All CT scans at this facility use at least one of these dose optimization techniques: automated exposure control; mA and/or kV adjustment per patient size (includes targeted exams where dose is matched to clinical indication); or iterative reconstruction. COMPARISON: MR CERVICAL SPINE WO CON 01/20/2025 4:33 PM FINDINGS: Bones: No acute fracture. In the area we unremarkable. No hardware complication. Normal alignment. No significant disc bulge or herniation. No severe spinal canal stenosis. No significant neural foraminal narrowing. Lungs: Lung apices are normal. Soft tissues: Unremarkable. IMPRESSION: No acute cervical spine fracture.
--- NOTE | 2025-02-15 01:02 | CT_ITS ---
PROCEDURE INFORMATION: Exam: CTA Abdomen and Pelvis With Contrast Exam date and time: 02/15/2025 1:50 AM Age: 64 years old Clinical indication: Injury or trauma; Additional info: Fall, right groin pain TECHNIQUE: Imaging protocol: Computed tomographic angiography of the abdomen and pelvis with contrast. Exam focused on the arteries. 3D rendering (Not supervised by radiologist): MIP and/or 3D reconstructed images were created by the technologist. Radiation optimization: All CT scans at this facility use at least one of these dose optimization techniques: automated exposure control; mA and/or kV adjustment per patient size (includes targeted exams where dose is matched to clinical indication); or iterative reconstruction. Contrast material: ISOVUE; Contrast volume: 80 ml; Contrast route: INTRAVENOUS (IV); COMPARISON: CT BONY PELVIS 02/15/2025 1:31 AM FINDINGS: Limitations: Beam hardening artifact arising from the left hip arthroplasty and pelvic stabilization hardware, right flank stimulator device and spinal fusion hardware obscures adjacent structures. Aorta: Mild calcification of the aorta. Celiac trunk and mesenteric arteries: No occlusion or significant stenosis. Renal arteries: No occlusion or significant stenosis. Right iliac arteries: No occlusion or significant stenosis. Left iliac arteries: No occlusion or significant stenosis. Liver: No mass. Gallbladder and biliary ducts: Cholecystectomy. Postsurgical dilation of the bile ducts. Pancreas: Unremarkable. No mass. No ductal dilation. Spleen: Unremarkable. No splenomegaly. Adrenal glands: Unremarkable. No mass. Kidneys and ureters: Unremarkable. No solid mass. No hydronephrosis. Stomach and bowel: Unremarkable. No obstruction. No mucosal thickening. Appendix: No evidence of appendicitis. Intraperitoneal space: Unremarkable. No free air. No significant fluid collection. Lymph nodes: Unremarkable. No enlarged lymph nodes. Urinary bladder: Unremarkable. No mass. Reproductive: Unremarkable as visualized. Bones/joints: Degenerative changes in the spine. L3-L5 fusion hardware. Left hip arthroplasty. Left iliac stabilization plate and screws. Soft tissues: Unremarkable. IMPRESSION: 1. Normal angiogram of the abdomen and pelvis. 2. No acute intra-abdominal findings.
--- NOTE | 2025-02-15 01:02 | CT_ITS ---
PROCEDURE INFORMATION: Exam: CT Thoracic Spine Without Contrast Exam date and time: 02/15/2025 1:39 AM Age: 64 years old Clinical indication: Injury or trauma; Additional info: Trauma, critical injury suspected TECHNIQUE: Imaging protocol: Computed tomography of the thoracic spine without contrast. Radiation optimization: All CT scans at this facility use at least one of these dose optimization techniques: automated exposure control; mA and/or kV adjustment per patient size (includes targeted exams where dose is matched to clinical indication); or iterative reconstruction. COMPARISON: CR CLIARC5T XR thoracic spine 2V 07/13/2018 11:50 AM FINDINGS: Bones/joints: Mild scoliosis. Moderate to severe degenerative changes. No acute fracture. No subluxation. No significant central canal narrowing. Soft tissues: Unremarkable. IMPRESSION: 1. No acute fracture. 2. No subluxation. 3. No significant central canal narrowing. 4. Mild scoliosis.
--- NOTE | 2025-02-15 01:02 | CT_ITS ---
PROCEDURE INFORMATION: Exam: CTA Head With Contrast, Arteriography Exam date and time: 02/15/2025 1:46 AM Age: 64 years old Clinical indication: Injury or trauma; Additional info: Trauma, critical injury suspected TECHNIQUE: Imaging protocol: Computed tomographic angiography of the head with contrast. Exam focused on the arteries. 3D rendering (Not supervised by radiologist): MIP and/or 3D reconstructed images were created by the technologist. Radiation optimization: All CT scans at this facility use at least one of these dose optimization techniques: automated exposure control; mA and/or kV adjustment per patient size (includes targeted exams where dose is matched to clinical indication); or iterative reconstruction. Contrast material: ISOVUE; Contrast volume: 80 ml; Contrast route: INTRAVENOUS (IV); COMPARISON: CT HEAD/BRAIN WO CON 02/15/2025 1:34 AM FINDINGS: ANTERIOR CIRCULATION: Right internal carotid artery: Intracranial segment is patent with no significant stenosis. Scattered atherosclerotic disease. No aneurysm. Right middle cerebral artery: No occlusion or significant stenosis. No aneurysm. Right anterior cerebral artery: No occlusion or significant stenosis. No aneurysm. Left internal carotid artery: Intracranial segment is patent with no significant stenosis. Scattered atherosclerotic disease. No aneurysm. Left middle cerebral artery: No occlusion or significant stenosis. No aneurysm. Left anterior cerebral artery: No occlusion or significant stenosis. No aneurysm. POSTERIOR CIRCULATION: Right vertebral artery: No occlusion or significant stenosis. No aneurysm. Left vertebral artery: No occlusion or significant stenosis. No aneurysm. Basilar artery: No occlusion or significant stenosis. No aneurysm. Right posterior cerebral artery: No occlusion or significant stenosis. No aneurysm. Left posterior cerebral artery: No occlusion or significant stenosis. No aneurysm. IMPRESSION: No large vessel stenosis or occlusion. No aneurysm.
--- NOTE | 2025-02-15 01:03 | CT_ITS ---
PROCEDURE INFORMATION: Exam: CT Pelvis Without Contrast, Skeleton Exam date and time: 02/15/2025 1:31 AM Age: 64 years old Clinical indication: Injury or trauma; Additional info: Fall, right groin pain TECHNIQUE: Imaging protocol: Computed tomography of the pelvis without contrast. Exam focused on the skeleton. Radiation optimization: All CT scans at this facility use at least one of these dose optimization techniques: automated exposure control; mA and/or kV adjustment per patient size (includes targeted exams where dose is matched to clinical indication); or iterative reconstruction. COMPARISON: CR XR HIP RT 2-3V W/PELVIS 01/03/2025 2:53 PM FINDINGS: Limitations: Beam hardening artifact arising from the left hip arthroplasty and pelvic stabilization hardware obscures adjacent structures. Tubes, catheters and devices: Stimulator device in the right flank. Left pelvic stabilization plates and screws. Bones/joints: L3-L5 fusion hardware. Left hip arthroplasty. No acute fracture. No dislocation. Soft tissues: Unremarkable. IMPRESSION: No acute findings. Intact left hip arthroplasty and pelvic stabilization hardware. Intact lumbar fusion hardware.
--- NOTE | 2025-02-15 01:04 | HMH.EDGENADL ---
Discharge Plan Disposition Patient Disposition: Admitted Clinical Impressions Clinical Impression: Laceration of face, Acute pain of right hip Closed fracture of 2nd metacarpal Qualifiers: Encounter type: initial encounter Metacarpal location: other portion of metacarpal Fracture alignment: nondisplaced Laterality: left Qualified Code(s): S62.391A - Other fracture of second metacarpal bone, left hand, initial encounter for closed fracture Fall Qualifiers: Encounter type: initial encounter Qualified Code(s): W19.XXXA - Unspecified fall, initial encounter Discharge ED Provider: Jason Yancey General Adult HPI General Chief complaint: Fall Stated complaint: FALL Time Seen by Provider: 02/15/25 01:04 History of Present Illness HPI narrative: 64-year-old female with history of diabetes, arthritis, hypertension, coronary artery disease, presents after a fall. She reports that she had a mechanical fall from standing, tripping over something while moving around her house. She fell and hit her head and sustained a laceration to the right forehead. She also has significant pain and deformity to the left hand. She also reports severe pain in the right groin. She denies chest pain, abdominal pain, denies loss of consciousness. She does report some neck pain. Related Data Home Medications ?Medication ?Instructions ?Recorded ?Confirmed ascorbic acid (vitamin C) 500 mg 500 mg PO DAILY Supplement 07/16/17 01/18/25 tablet cholecalciferol (vitamin D3) 10 400 unit PO DAILY Supplement 07/16/17 01/18/25 mcg (400 unit) capsule multivitamin 1 tab PO DAILY suppleemnt 06/20/22 01/18/25 cyanocobalamin (vitamin B-12) 100 mcg IM QMONTH 12/19/23 01/18/25 1,000 mcg/mL injection solution syringe with needle 3 mL 25 gauge #1 ea 12/19/23 01/18/25 x 1 (BD Luer-Filomena Syringe) rimegepant 75 mg disintegrating 75 mg PO DAILY PRN Migraine 04/05/24 01/18/25 tablet (Nurtec ODT) Headache Previous Rx's ?Medication ?Instructions ?Recorded atogepant 60 mg tablet (Qulipta) 60 mg PO DAILY #30 tabs 12/05/23 spironolactone 25 mg tablet 25 mg PO DAILY PRN GERD #15 tabs 12/05/23 duloxetine 60 mg capsule,delayed See Rx Instructions .Route 03/18/24 release .COMPLEX #60 caps furosemide 40 mg tablet 40 mg PO DAILY PRN edema #30 tabs 03/18/24 mupirocin 2 % topical ointment 1 applic topical BID cellulitis 3 05/25/24 weeks #22 grams ibuprofen 600 mg tablet 600 mg PO TID PRN pain 30 days #90 08/05/24 tabs potassium chloride 20 mEq 1 meq (0.05 x 20 mEq) PO DAILY 08/24/24 tablet,extended release(part/cryst) supplemtn #90 tabs gabapentin 100 mg capsule 100 mg PO TID PRN nerve pain 10 08/26/24 days #30 caps tramadol 50 mg tablet 50 mg PO HS #30 tabs 10/08/24 lamotrigine 200 mg tablet See Rx Instructions .Route 11/05/24 .COMPLEX #60 tabs promethazine 25 mg tablet 25 mg PO DIRECTED PRN Nausea 11/08/24 #30 tabs alendronate 70 mg tablet 70 mg PO WEEKLY #12 tabs 12/14/24 lorazepam 1 mg tablet 1 mg PO Q6H PRN anxiety #120 tabs 01/06/25 carvedilol 3.125 mg tablet See Rx Instructions .Route 01/07/25 .COMPLEX #180 tabs semaglutide 2 mg/dose (8 mg/3 mL) 2 mg (0.75 mL) SQ WEEKLY #3 mL 01/18/25 subcutaneous pen injector (Ozempic) zolpidem 10 mg tablet 10 mg PO HS PRN Sleep #30 tabs 02/01/25 Allergies Allergy/AdvReac Type Severity Reaction Status Date / Time cephalexin (From Keflex) Allergy Severe SERUM Verified 01/18/25 10:04 SICKNESS ; JOINTS LOCKED morphine Allergy Intermediate I-HIVES Verified 01/18/25 10:04 Penicillins Allergy Intermediate I-HIVES Verified 01/18/25 10:04 adhesive tape AdvReac Mild Unknown Verified 01/18/25 10:04 allergy reaction PFSH [facility] Disclaimer: The information contained in this section may have been updated after the patient was seen, as this information can be updated by other users. Medical History Frequent falls Dysphagia, unspecified Iron deficiency anemia BMI 33.0-33.9,adult Urge incontinence Primary generalized (osteo)arthritis Constipation, unspecified Irritable bowel syndrome with diarrhea Gastro-esophageal reflux disease without esophagitis Venous insufficiency (chronic) (peripheral) Anxiety Migraine Urinary incontinence Diabetes mellitus, type 2 Hyperlipidemia Normal colonoscopy Hx of fracture of wrist x4 right Derangement of sacroiliac joint Fracture acetabulum-closed Acute postoperative anemia due to expected blood loss Diabetes Degenerative joint disease of left hip HHD (hypertensive heart disease) CAD (coronary artery disease) HTN (hypertension) Diastolic dysfunction Right knee pain Right shoulder injury Post laminectomy syndrome DDD (degenerative disc disease), lumbar Surgical History History of cholecystectomy History of hysterectomy History of knee replacement History of surgery on left wrist History of left hip replacement x2 Family History Other Family history of diabetes mellitus type II Family hx-stroke Social History Smoking Status: Never smoker second hand exposure: No alcohol intake: never counseling provided: none substance use type: denies use current occupational status: unemployed Travel in the last 8 weeks?: None household members: spouse and family housing: house current occupation: [employer] current occupational exposures/hazards: No caffeine: Yes do you feel safe at home: Yes victim of physical abuse: No victim of emotional abuse: No victim of sexual abuse: No would you like helpful sources: No Have you lived/traveled outside US in past 30 days?: No Contact w/someone who lives/traveled outside US past 30 days?: No Exposure to someone with infectious disease in past 14 days?: No Do you have a fever (greater than 100.4 F or 38 C)?: No Have you tested positive for COVID-19?: No Exposed to someone with COVID-19 in past 14 days?: No Do you have a sore throat?: No Do you have a cough?: No Do you have any weakness?: No Do you have any diarrhea?: No Are you experiencing any unusual bleeding?: No Do you have any muscle aches/pain?: No Do you have any abdominal pain?: No Are you experiencing loss of taste or smell?: No Other Medical History Have you received the Flu Vaccine for this season: No Have you received the Pneumonia Vaccine: Yes ROS Obtained: Yes All systems reviewed & no additional complaints except as documented Physical Exam General General appearance: alert Head Head exam: normocephalic and other (Hemostatic lacerations to the right mosque/forehead) Eye Eye exam: Present normal appearance, PERRL and EOMI ENT ENT exam: Present normal oropharynx and normal external ear exam Neck Neck exam: Present normal inspection and tenderness Chest Chest inspection: Present normal inspection and symmetric chest wall rise; Absent tenderness Respiratory Respiratory exam: Present normal lung sounds bilaterally; Absent respiratory distress Cardiovascular Cardiovascular exam: Present regular rate and normal rhythm Abdominal Exam Abdominal exam: Present soft; Absent distention, tenderness or guarding Extremities Exam Extremities exam: Present other (Skin tears to the right forearm. Deformity and tenderness to the left dorsal hand without laceration. Tenderness and pain with internal/external rotation of the right lower extremity at the groin.) Back Exam Back exam: Present normal inspection; Absent tenderness Neurological Exam Neurological exam: Present alert and oriented X3; Absent motor sensory deficit Psychiatric Psychiatric exam: Present normal affect and normal mood Skin Skin exam: Present warm, dry and normal color Lymphatic Lymphatic Findings: no adenopathy Medical Decision Making Medical Records Medical records reviewed: Yes I reviewed the patient's medical records. Screening: Per USPSTF and CDC recommendations, given the prevalence of disease in our region, it is our hospital?s policy to screen for HIV and viral Hepatitis for all patients aged 18 and over and those with ongoing risk factors. Daniel Inquiry Pt receiving controlled substance: No Daniel was queried for this patient: No Vital Signs: 02/15/25 00:59 02/15/25 01:03 02/15/25 01:15 Temperature 98.1 F Temperature Source Oral Pulse Rate 78 81 Pulse Rate [Left] 79 Respiratory Rate 14 Blood Pressure Blood Pressure [Right Arm] 192/100 H Blood Pressure Mean Blood Pressure Mean [Right Arm] 130 Blood Pressure Source [Right Arm] Automatic Cuff Blood Pressure Position [Right Arm] Sitting 02 Sat by Pulse Oximetry 97 99 100 Oxygen Delivery Method Room Air 02/15/25 01:29 02/15/25 02:21 02/15/25 02:21 Temperature Temperature Source Pulse Rate 77 Pulse Rate [Left] Respiratory Rate Blood Pressure 150/83 H Blood Pressure [Right Arm] Blood Pressure Mean 111 Blood Pressure Mean [Right Arm] Blood Pressure Source [Right Arm] Blood Pressure Position [Right Arm] 02 Sat by Pulse Oximetry 97 92 L Oxygen Delivery Method Room Air 02/15/25 02:30 02/15/25 02:45 02/15/25 03:00 Temperature Temperature Source Pulse Rate 80 Pulse Rate [Left] Respiratory Rate Blood Pressure 143/80 H 144/83 H Blood Pressure [Right Arm] Blood Pressure Mean 106 103 Blood Pressure Mean [Right Arm] Blood Pressure Source [Right Arm] Blood Pressure Position [Right Arm] 02 Sat by Pulse Oximetry 91 L Oxygen Delivery Method 02/15/25 03:00 02/15/25 03:15 02/15/25 03:30 Temperature Temperature Source Pulse Rate 81 77 Pulse Rate [Left] Respiratory Rate Blood Pressure 142/82 H Blood Pressure [Right Arm] Blood Pressure Mean 95 Blood Pressure Mean [Right Arm] Blood Pressure Source [Right Arm] Blood Pressure Position [Right Arm] 02 Sat by Pulse Oximetry 93 L 90 L Oxygen Delivery Method 02/15/25 03:30 Temperature Temperature Source Pulse Rate 79 Pulse Rate [Left] Respiratory Rate Blood Pressure Blood Pressure [Right Arm] Blood Pressure Mean Blood Pressure Mean [Right Arm] Blood Pressure Source [Right Arm] Blood Pressure Position [Right Arm] 02 Sat by Pulse Oximetry 95 Oxygen Delivery Method Lab Data Lab results reviewed: Yes I reviewed the patient's lab results. Lab Results 02/15/25 01:20: WBC 6.0, RBC 3.98 L, Hgb 11.6 L, Hct 36.2 L, MCV 91.0, MCH 29.1, MCHC 32.0, RDW 13.1, Plt Count 298, MPV 8.7, Neut % (Auto) 63.3, Lymph % (Auto) 24.7, [place] % (Auto) 9.4 H, Eos % (Auto) 2.2, Baso % (Auto) 0.2, Neut # (Auto) 3.8, Lymph # (Auto) 1.5, [place] # (Auto) 0.6, Eos # (Auto) 0.1, Baso # (Auto) 0.0, PT 10.8, INR 0.97, Sodium 137, Potassium 3.9, Chloride 101, Carbon Dioxide 32 H, Anion Gap 7.9, BUN 13, Creatinine 0.70, Estimated Creat Clear 85, Estimated GFR 84, Est GFR ( Amer) 102, Glucose 93, Calcium 9.6, Total Bilirubin 0.2, AST 34, ALT 19, Alkaline Phosphatase 95, Total Protein 6.9, Albumin 4.2, Globulin 2.7, Albumin/Globulin Ratio 1.6, HCV Ab RYAN w/Rflx PCR Qn Negative, HIV Ag/Ab Combo Qual Negative 02/15/25 01:20 02/15/25 01:20 Orders (Tests/Meds): ED MEDICATIONS Generic Name Dose Route Start Last Admin Trade Name Freq PRN Reason Stop Dose Admin Hydromorphone HCl 0.5 mg 02/15/25 03:28 Hydromorphone 2mg/Ml Syringe IV 03/17/25 03:27 Q6HP PRN Severe Pain (7-10) Insulin Human Lispro 0 unit 02/15/25 03:30 Humalog 100 Units/Ml 10ml Vial (Ssi) SUBCUT 03/17/25 03:29 Q6H ANDI Protocol Oxycodone HCl 5 mg 02/15/25 03:44 Oxycodone 5mg Immediate Release Tablet PO 02/15/25 03:45 ONCE ONE Discontinued Medications Generic Name Dose Route Start Last Admin Trade Name Freq PRN Reason Stop Dose Admin Acetaminophen 1,000 mg 02/15/25 01:09 02/15/25 01:14 Acetaminophen 500mg Tab PO 02/15/25 01:10 1,000 mg ONCE ONE Administration Fentanyl Citrate 50 mcg 02/15/25 01:56 02/15/25 02:04 Fentanyl 100mcg/2ml Vial IV 02/15/25 01:57 50 mcg ONCE ONE Administration Hydromorphone HCl 0.5 mg 02/15/25 01:01 02/15/25 01:14 Hydromorphone 2mg/Ml Syringe IV 02/15/25 01:02 0.5 mg ONCE ONE Administration Iopamidol 160 ml 02/15/25 02:12 02/15/25 02:13 Iopamidol-370 (76%);100ml Bottle IV 02/15/25 02:13 160 ml ONCE ONE Administration Ondansetron HCl 4 mg 02/15/25 01:01 02/15/25 01:13 Ondansetron 4mg/2ml Vial IV 02/15/25 01:02 4 mg ONCE ONE Administration Sodium Chloride 100 ml 02/15/25 02:12 02/15/25 02:13 0.9 % Sodium Chloride 50 Ml Vial IV 02/15/25 02:13 100 ml ONCE ONE Administration Sodium Chloride 10 ml 02/15/25 02:12 02/15/25 02:14 Sodium Chloride 0.9% 10ml Syr (Rad Only) IV 02/15/25 02:13 10 ml ONCE ONE Administration ORDERS Category Date Time Status CT angio abd/pel - TRAUMA Stat Cat Scan 02/15/25 01:[address] angio chest - dissection Stat Cat Scan 02/15/25 01:[address] angio head Stat Cat Scan 02/15/25 01:[address] angio neck Stat Cat Scan 02/15/25 01:[address] bony pelvis Stat Cat Scan 02/15/25 01:[address] cervical spine wo con Stat Cat Scan 02/15/25 01:[address] head/brain wo con Stat Cat Scan 02/15/25 01:[address] lumbar spine wo con Stat Cat Scan 02/15/25 01:[address] thoracic spine wo con Stat Cat Scan 02/15/25 01:02 Completed Femur XR right 2 views [XR femur RT 2V] Stat Exams 02/15/25 01:10 Completed Hand XR left minimum 3 views [XR hand LT min 3V] Stat Exams 02/15/25 01:09 Completed Hip XR right minimum 2 views [XR hip RT 2-3V w/pelvis] Exams 02/15/25 01:10 Completed Stat Wrist XR left 2 views [XR wrist LT 2V] Stat Exams 02/15/25 01:09 Completed CBC w/Auto Diff [Complete Blood Count Auto Diff] Stat Lab 02/15/25 01:20 Completed CMP [Comprehensive Metabolic Panel] Stat Lab 02/15/25 01:20 Completed HIV Combo Stat Lab 02/15/25 01:20 Completed Hepatitis C Ab Qual. W/ RFX Stat Lab 02/15/25 01:20 Completed INR [Prothrombin Time INR] Stat Lab 02/15/25 01:20 Completed Medical Decision Narrative: 64-year-old female with history of hyperlipidemia coronary artery disease diabetes multiple prior fractures, fusions, presents for fall from standing with right forehead laceration, left hand deformity, right hip/groin pain. History was obtained via interactive discussion with patient. On arrival, patient is [afebrile, hemodynamically stable, satting appropriately, alert, oriented x4, GCS 15], moving all extremities spontaneously. Full physical exam performed and significant for traumatic findings as documented above Differential includes but is not limited to intracranial trauma to thoracic trauma intra-abdominal trauma spine trauma extremity trauma. Patient was given Dilaudid and Zofran for symptomatic management and correction of underlying abnormalities. Workup initiated including full trauma scans and radiographs of the affected extremities. Trauma labs ordered.. On re-evaluation, patient remains in significant pain in the right hip. Given additional pain medication. Laboratory workup independently interpreted by me and significant for no significant leukocytosis, stable anemia, normal renal function.. Imaging independently interpreted by me and significant for fracture of the second metacarpal head/neck of the left hand. No obvious fracture within the pelvis noted on CT scan, no intracranial injury noted.. See radiology read for full review of final results. The patient's right hand was placed in a radial gutter splint. The laceration of the face were copiously irrigated and repaired at bedside by me. Given patient history, exam and workup, patient's presentation most likely represents fracture of the left second metacarpal, laceration of the face, persistent right hip pain despite negative CT concerning for occult fracture. Given this, I had an interactive discussion with the hospitalist on-call for admission for MRI. Procedures Risk/Benefits of Procedure(s) Were Explained: Yes Laceration Laceration 1: Site: face Side (If applicable): right Size (cm): 3 Description: linear Depth: involves subcutaneous layer Local Anesthetic: lidocaine 1% Amount of anesthesia used (mL): 5 Pre-repair: wound explored, irrigated extensively and deep structures intact Skin layer closed with: other (fast gut) Size (cm): 5-0 Number of sutures: 5 Orthopedic Splinting/Casting Injury #1: Side: left Upper Extremity Injury Location: hand Upper Extremity Immobilizer: wrist splint (radial gutter) Post Cast/Splinting Neuro Status: intact Post Cast/Splinting Vasc Status: intact Critical Care Critical Care Time Critical Care Time: No
--- NOTE | 2025-02-15 01:09 | XR_ITS ---
PROCEDURE INFORMATION: Exam: XR Left Wrist Exam date and time: 02/15/2025 1:57 AM Age: 64 years old Clinical indication: Pain; Wrist; Left; Additional info: Fall, deformity TECHNIQUE: Imaging protocol: Radiologic exam of the left wrist. Views: 1 or 2 views. COMPARISON: CR FINGERLT XR finger LT min 2V 07/08/2018 9:49 AM FINDINGS: Bones/joints: Intact radial 3rd metacarpal fusion plate and screws. Distal ulnar resection. No acute fracture. No dislocation. Intact 1st metacarpal phalangeal fusion screw. Soft tissues: Normal. IMPRESSION: No acute findings. (Please refer to the hand x-ray report for discussion of the 2nd metacarpal fracture) Postsurgical changes, as described above.
--- NOTE | 2025-02-15 01:09 | XR_ITS ---
PROCEDURE INFORMATION: Exam: XR Left Hand Exam date and time: 02/15/2025 1:57 AM Age: 64 years old Clinical indication: Pain; Hand; Left; Additional info: Fall, deformity TECHNIQUE: Imaging protocol: Radiologic exam of the left hand. Views: 3 or more views. COMPARISON: CR XR HAND LT MIN 3V 02/15/2025 1:57 AM FINDINGS: Bones/joints: Nondisplaced fracture of the 2nd metacarpal head. Intact wrist fusion and 1st metacarpal phalangeal fusion hardware. Narrowing of the interphalangeal joints. Soft tissues: Normal. IMPRESSION: 1. Nondisplaced fracture of the 2nd metacarpal head. 2. Intact fusion hardware, as described above. 3. Arthritis of the interphalangeal joints.
--- NOTE | 2025-02-15 01:10 | XR_ITS ---
PROCEDURE INFORMATION: Exam: XR Right Femur Exam date and time: 02/15/2025 1:57 AM Age: 64 years old Clinical indication: Injury or trauma; Fall; Other: Pain; Additional info: Fall, hip pain TECHNIQUE: Imaging protocol: Radiologic exam of the right femur. Views: 2 views. COMPARISON: CT ANGIO ABD/PEL - TRAUMA 02/15/2025 1:50 AM FINDINGS: Bones/joints: Intact femoral resurfacing hardware. No acute fracture. Soft tissues: Unremarkable. IMPRESSION: No acute findings.
--- NOTE | 2025-02-15 01:10 | XR_ITS ---
PROCEDURE INFORMATION: Exam: XR Right Hip Exam date and time: 02/15/2025 1:57 AM Age: 64 years old Clinical indication: Hip pain; Right hip; Additional info: Fall, right groin pain TECHNIQUE: Imaging protocol: Radiologic exam of the right hip. Views: 2 or 3 views hip with pelvis when performed. COMPARISON: CT ANGIO ABD/PEL - TRAUMA 02/15/2025 1:50 AM FINDINGS: Bones/joints: Intact left total hip arthroplasty hardware. Left iliac fixation plate screws. No acute fracture. No dislocation. Soft tissues: Unremarkable. IMPRESSION: No acute findings.
--- OUTSIDE RECORDS SUMMARY | 2025-02-15 01:12 | XMS_ITS | Referral Summary ---
Author Organization [facility] ([place], [place], [place], [place]) Address [address] [place] [address] Care Team Providers Care Stove Tender Name Role Phone Omar De La Torre MD Primary Care Provider [phone] Allergies Active Allergy Reactions Criticality Noted Date [...] Date Wild rded Speak language other than Welsh at home Not on file 08/01/2023 Want [...] Description 02/23/2025 10:00 AM EDT Office Visit [facility] Neurology - [address] [place] [address] Jose Ortega MD [address] [place], [place] [id number] Medical Devices Implanted Type Area Boning Room Worker Device Identifier Shelf Expiration Date Model / Serial / Lot Bone Vivigen Formable [id number] - [id number] Implanted:Qty : 1 on 10/30/2022 by Duane Friedman MD at [facility] IMPLANTS N/A: Spine Cervical LIFENET:LIFENET TRANSPLANT SRV 10/11/2023 [id number] / [id number] / Cage Eit Cif H 5mm 8d S [id number] - [id number] Implanted:Qty : 1 on 10/30/2022 by Duane Friedman MD at [facility] IMPLANTS N/A: Spine Cervical J &J:DEPUY:DEPUY SPINE 01/10/2026 [id number] / / [id number] Cage Eit Cif H 5mm 8d S [id number] - [id number] Implanted:Qty : 1 on 10/30/2022 by Duane Friedman MD at [facility] IMPLANTS N/A: Spine Cervical J &J:DEPUY:DEPUY SPINE 07/13/2023 [id number] / / [id number] Cage Eit Cif H 5mm 8d S [id number] - [id number] Implanted:Qty : 1 on 10/30/2022 by Duane Friedman MD at [facility] IMPLANTS N/A: Spine Cervical J &J:DEPUY:DEPUY SPINE 01/10/2026 [id number] / / [id number] Plt Ant Skyln Hybrd Lvl3 45mm 045 - [id number] Implanted:Qty : 1 on 10/30/2022 by Duane Friedman MD at [facility] IMPLANTS N/A: Neck J &J:DEPUY:DEPUY SPINE 03-0 45 / 03-0 45 / Scr Skyln Vari Sd 18mm 50-018 - [id number] Implanted:Qty : 8 on 10/30/2022 by Duane Friedman MD at [facility] IMPLANTS N/A: Neck J &J:DEPUY:DEPUY SPINE 50-0 18 / -0 18 / Insurance BLUE CROSS/BLUE SHIELD Advance Directives For more information, please contact: [phone] Documents on File Type Date Recorded Patient Revenue Integrity Analyst Expl anation Advance Directives and Livin g Will 10/30/2022 6:04 AM * Full Code (Latest Code Status on File) Date Activated Date Inactivated Comments 10/30/2022 10:48 AM 11/04/2022 1:55 PM Care Teams Stove Tender Relationship Specialty Start Date End Date Omar De La Torre MD [address] [place] [address] PCP - General General Internal Medicine 10/16/22
--- OUTSIDE RECORDS SUMMARY | 2025-02-15 01:12 | XMS_ITS | Encounter Summary ---
Author Organization Healthcare Address [address] [place] [address] Care Team Providers Care Sawmill Manager Name Role Phone Omar De La Torre MD Primary Care Provider [phone] Encounter Details Date Type Department Care Team (Late st Contact Info) Description 09/26/2021 Lab Requisition [facility] [address] [place] [place] [address] João Reyes MD [address] [address] Benign neoplasm of other specified sites Social [...] Exam (09/26/2021) Case Report Surgical Pathology Case: [id number] Authorizing Provider: João Reyes MD Collected: 09/26/2021 Ordering Location: [facility] Lab Received: 09/26/2021 1239 Pathologist: Komal Negron MD Specimen: Wrist, Right, Right wrist neuroma 09/27/2021 11:40 AM EDT [facility] Final Diagnosis A. SOFT TISSUE MASS, RIGHT WRIST, EXCISION: - NEUROMA. 09/27/2021 11:40 AM EDT [facility] at 1140 EDT Clinical Information Right wrist hardware failure, right wrist neuroma 09/27/2021 11:40 AM EDT [facility]ALTH[facility] Gross Description A. RIGHT WRIST NEUROMA The specimen is received in formalin labeled right wrist neuroma , and consists of a 2.5 x 0.6 x 0.5 cm pink-harding fibrous tissue fragment. Entirely submitted in cassette A1. Kimberly Montgomery 09/27/2021 11:40 AM EDT [facility] Tissue Structure of right wrist region / Unknown 09/26/2021 09/26/2021 12:39 PM EDT João Reyes MD LAB PATHOLOGY ORDERABLES Alisha boone Result [facility] [address] [place] [address] documented in this encounter Visit Diagnoses Diagnosis Benign neoplasm of other specified sites documented in this encounter Additional Health Concerns Assessment Noted Time A fall risk assessment has been complete d for the patient 09/11/2021 10:48 AM EST documented as of this encounter Care Teams Sawmill Manager Relationship Specialty Start Date End Date Omar De La Torre MD [address] [place] [address] [address] [place] [address] PCP - General 11/24/20 documented as of this encounter
--- OUTSIDE RECORDS SUMMARY | 2025-02-15 01:12 | XMS_ITS | Encounter Summary ---
Author Organization [facility] Address [address] [place] [address] Care Team Providers Care Manager Of Applications Development Name Role Phone Omar De La Torre MD Primary Care Provider [phone] Encounter Details Date Type Department Care Team (Late st Contact Info) Description 01/11/2025 Telephone [facility] [address] [place] [address] João Reyes MD [address] [address] Social History Tobacco Use Types [...] documented as of this encounter Care Teams Manager Of Applications Development Relationship Specialty Start Date End Date Omar De La Torre MD [address] [place] [address] [address] [place] [address] PCP - General 11/24/20 documented as of this encounter
--- OUTSIDE RECORDS SUMMARY | 2025-02-15 01:12 | XMS_ITS | Encounter Summary ---
Author Organization [facility] Address [address] [place] [address] Care Team Providers Care Estimation Manager Name Role Phone Omar De La Torre MD Primary Care Provider [phone] Reason for Visit * Reason Onset Date Comments HCN - Rx Refill Request 10/05/2021 Encounter Details Date Type Department Care Team (Late st Contact Info) Description 10/05/2021 Telephone [facility] [address] [place] [address] João Reyes MD [address] [address] HCN - Rx Refill Request [...] Preferred Pharmacy & Location: the [facility] Days of medication remaining (if under 3 days please sandra as urgent): 0 Best contact number and optimal time of day to reach caller: [phone] Additional comments/information from caller: Note: Please do not reply to this message. Follow-up communication and further actions as a result of this message need to be communicated with the patient directly, if the patient is not active onMyChart. If the patient is active on MyChart, they will receive notification of the communication/outcome via TrackIF. documented in this encounter Plan of Treatment Not on file documented as of this encounter Visit Diagnoses Not on filedocumented in this encounter Additional Health Concerns Assessment Noted Time A fall risk assessment has been complete d for the patient 09/11/2021 10:48 AM EST documented as of this encounter Care Teams Estimation Manager Relationship Specialty Start Date End Date Omar De La Torre MD [address] [place] [address] [address] [place] [address] PCP - General 11/24/20 documented as of this encounter
--- OUTSIDE RECORDS SUMMARY | 2025-02-15 01:12 | XMS_ITS | Encounter Summary ---
Author Organization [facility] Address [address] [place] [address] Care Team Providers Care Shell Coremaker Name Role Phone Omar De La Torre MD Primary Care Provider Reason for Visit * Reason Onset Date Comments Med Refill 05/07/2021 Encounter Details Date Type Department Care Team (Late st Contact Info) Description 05/07/2021 Refill [facility] [address] [place] [id number] João Reyes MD [address] [address] Social History Tobacco Use Types [...] optimal time of day to reach caller: [phone] Note: Please do not reply to this message. Follow-up communication and further actions as a result of this message need to be communicated with the patient directly, if the patient is not active onMyChart. If the patient is active on MyChart, they will receive notification of the communication/outcome via MTPV. documented in this encounter Plan of Treatment Not on file documented as of this encounter Visit Diagnoses Not on filedocumented in this encounter Additional Health Concerns Assessment Noted Time A fall risk assessment has been complete d for the patient 04/03/2021 11:28 AM EDT documented as of this encounter Care Teams Shell Coremaker Relationship Specialty Start Date End Date Omar De La Torre MD [address] [place] [address] [address] [place] [address] PCP - General 11/24/20 documented as of this encounter
--- OUTSIDE RECORDS SUMMARY | 2025-02-15 01:12 | XMS_ITS | Clinical Summary ---
Author Organization [facility] Address [address] [place] [address] Care Team Providers Care Director Recreation Center Name Role Phone Mason Cleaning MD Primary Care Provider [phone] Allergies Active Allergy Reactions Criticality Noted Date [...] ( season) 2024 INFLUENZA VACCINE 04/13/2025 Insurance [employer] Care Teams Director Recreation Center Relationship Specialty Start Date End Date Mason Cleaning MD [address] [facility] [address] ATTN: [place] [address] PCP - General Emergency Medicine 09/20/16
--- OUTSIDE RECORDS SUMMARY | 2025-02-15 01:12 | XMS_ITS | Clinical Summary ---
Author Organization [facility] ([place], [place], [place], [place]) Address [address] [place] [address] Care Team Providers Care Wood Car Builder Name Role Phone Omar De La Torre MD Primary Care Provider [phone] Allergies Active Allergy Reactions Criticality Noted Date [...] Date Wild rded Speak language other than Faroese at home Not on file 08/01/2023 Want [...] Description 02/23/2025 10:00 AM EDT Office Visit [facility] Neurology - [address] [place] [address] Jose Ortega MD [address] [place] [address] Health Maintenance Due Date Last Done Comments [...] 10/25/2025 10/25/2024 Medical Devices Implanted Type Area Valve Repairer Reclamation Device Identifier Shelf Expiration Date Model / Serial / Lot Bone Vivigen Formable Bl-1600-001 - [id number] Implanted:Qty : 1 on 10/30/2022 by Duane Friedman MD at [facility] IMPLANTS N/A: Spine Cervical LIFENET:LIFENET TRANSPLANT SRV 10/11/2023 BL-1600-0 / [id number] / Cage Eit Cif H 5mm 8d S [id number] - [id number] Implanted:Qty : 1 on 10/30/2022 by Duane Friedman MD at [facility] IMPLANTS N/A: Spine Cervical J &J:DEPUY:DEPUY SPINE 01/10/2026 [id number] / / [id number] Cage Eit Cif H 5mm 8d S [id number] - [id number] Implanted:Qty : 1 on 10/30/2022 by Duane Friedman MD at [facility] IMPLANTS N/A: Spine Cervical J &J:DEPUY:DEPUY SPINE 07/13/2023 [id number] / / [id number] Cage Eit Cif H 5mm 8d S [id number] - [id number] Implanted:Qty : 1 on 10/30/2022 by Duane Friedman MD at [facility] IMPLANTS N/A: Spine Cervical J &J:DEPUY:DEPUY SPINE 01/10/2026 [id number] / / [id number] Plt Ant Skyln Hybrd Lvl3 45mm 03-045 - [id number] Implanted:Qty : 1 on 10/30/2022 by Duane Friedman MD at [facility] IMPLANTS N/A: Neck J &J:DEPUY:DEPUY SPINE 03-0 45 / 03-0 45 / Scr Skyln Vari Sd 18mm 50-018 - [id number] Implanted:Qty : 8 on 10/30/2022 by Duane Friedman MD at [facility] IMPLANTS N/A: Neck J &J:DEPUY:DEPUY SPINE 50-0 18 / 50-0 18 / Insurance BLUE CROSS/BLUE SHIELD Advance Directives For more information, please contact: [phone] Documents on File Type Date Recorded Patient Casting Room Helper Expl anation Advance Directives and Livin g Will 10/30/2022 6:04 AM * Full Code (Latest Code Status on File) Date Activated Date Inactivated Comments 10/30/2022 10:48 AM 11/04/2022 1:55 PM Care Teams Wood Car Builder Relationship Specialty Start Date End Date Omar De La Torre MD [address] [place] [phone] PCP - General General Internal Medicine 10/16/22
--- OUTSIDE RECORDS SUMMARY | 2025-02-15 01:12 | XMS_ITS | Clinical Summary ---
Author Organization [facility] Address [address] [place] [address] Care Team Providers Care Motorcycle Mechanic Name Role Phone Omar De La Torre MD Primary Care Provider [phone] Allergies Active Allergy Reactions Criticality Noted Date [...] FINISH ALL MEDICINE -- Active HYDROcodone-acetam inophen ([place]) 7.5-325 MG tablet TAKE ONE TABLET BY [...] (11/13/2021): Added automatically from request for surgery [id number] Depression with anxiety 02/13/2021 Generalized OA 02/13/2021 HTN (hypertension) 02/13/2021 Insomnia 02/13/2021 Obesity 02/13/2021 Hematoma of left hip 02/13/2021 Acetabular labrum tear, left, sequela 01/18/2021 Lumbar radiculopathy 05/01/2020 Hip pain 04/18/2020 Iron deficiency anemia 09/29/2016 Status post bariatric surgery 09/29/2016 Spondylolisthesis 03/13/2015 Physical deconditioning Encounters Date Type Department Care Team Description 01/11/2025 [facility] [address] [place] [address] João Reyes MD 11/25/2024 2:00 PM EDT Office Visit [facility] [address] [place] [phone] João Reyes MD Scar contracture (Primary Dx) 11/25/2024 Travel 11/25/2024 [facility]phone [facility] [address] [place] [address] João Reyes MD HCN - Patient Message from Last 3 Months Family History Medical [...] - Risk 60-74 years 1-dose series) 2020 [id number] Vaccine (3 - Pfizer risk series) 09/19/2020 [...] Johanne Grimes Medical Devices Implanted Type Area Credit Verification Clerk Device Identifier Shelf Expiration Date Model / Serial / Lot Pain Pump Pain Pump N/A: Back Procedures Procedure Name Priority Date/Time Associated Diagnosis Comments HEMOGLOBIN A1C Routine 02/14/2021 3:25 AM EDT HEPATITIS C ANTIBODY - ED W/REFLEX TO HCV QUANT PCR STAT 02/12/2021 8:20 PM EDT HIV 1/2 ANTIBODY/ANTIGEN SCREEN WITH REFLEX TO HIV I/II DIFFERENTIATION STAT 02/12/2021 8:20 PM EDT from Last 3 Months or Most Recently Relevant to Health Maintenance Results * Hemoglobin A1c (02/14/2021 3:25 AM EDT) [...] Adults <6.0% Children and Adolescents <7.5% Source: [place] [employer]. Standards of medical care in diabetes,2017. Diabetes Care.2017:40 (suppl 1):S1-S135. HbA1c assay performed by an ion-exchange chromatography method that is certified traceable to the DCCT. Liana FELICIANO LAB BLOOD ORDERABLES Final R esult Performing Organization Address [facility] Co de Phone Number HEALTHCARE [facility] [address] [place] [address] * HIV 1 & 2 Antibody/Antigen Screen (02/12/2021 8:20 PM EDT) Pathologist [facility] HIV 1 & 2 Antibody/Anti gen Screen Nonreactive Nonreactive 02/12/2021 10:17 PM EDT [facility] Blood Venous blood specimen / Unknown Venipuncture / Unknown 02/12/2021 8:20 PM EDT 02/12/2021 8:34 PM EDT Result [facility] Joanne Umaña MD LAB BLOOD ORDERABLES Final Res ult Performing Organization Address [facility] Co de Phone Number HEALTHCARE [facility] [address] [place] [address] * [place] Hepatitis C Antibody (02/12/2021 8:20 PM EDT) [facility] Hepatitis C Antibody Negative Negative 02/12/2021 10:17 PM EDT [facility] Blood Venous blood specimen / Unknown Venipuncture / Unknown 02/12/2021 8:20 PM EDT 02/12/2021 8:34 PM EDT Result [facility] Joanne Umaña MD LAB BLOOD ORDERABLES Final Res ult Performing Organization Address [facility] Co de Phone Number [facility] [address] [place] [address] from Last 3 Months or Most Recently Relevant to Health Maintenance Insurance [employer]AN[employer] Advance Directives * Full Code (Latest Code Status on File) Date Activated Date Inactivated Comments 02/13/2021 4:57 AM 02/21/2021 4:22 PM Question Answer Comments Patient has decision-making capacity? Yes * Full Code Date Activated Date Inactivated Comments 01/18/2021 4:57 PM 02/05/2021 4:59 PM Question Answer Comments Patient has decision-making capacity? Yes Care Teams Motorcycle Mechanic Relationship Specialty Start Date End Date Omar De La Torre MD [address] [facility] [address] [place] [address] PCP - General 11/24/20
--- OUTSIDE RECORDS SUMMARY | 2025-02-15 01:12 | XMS_ITS | Clinical Summary ---
Author Organization [facility] Address [address] [facility] [address] [place] [address] Phone Care Team Providers Care Processor Helper Name Role Phone Unavailable Unavailable Conditions or Problems No information available. Medications No information available. Medications Administered No information available. Allergies, Adverse Reactions, Alerts No information available. Results No information available. Plan of Care No information available. Procedures No information available. Vital Signs No information available. Immunizations No information available. Advance Directives No information available.
[2025-02-15] MEDS: ONDANSETRON 4MG/2ML VIAL 4 MG IV (01:13)
[2025-02-15] MEDS: HYDROMORPHONE 2MG/ML SYRINGE 0.5 MG IV ×5 (01:14→20:16)
[2025-02-15] MEDS: ACETAMINOPHEN 500MG TAB 1000 MG PO (01:14)
[2025-02-15 01:28] LABS: Hematocrit 36.2 % (37.0-47.0); Hemoglobin 11.6 g/dL (12.2-16.2); Immature Granulocytes % 0.2 %; Mean Corpuscular HGB Conc 32.0 g/dL (31.8-35.4); Mean Corpuscular Hemoglobin 29.1 pg (27.0-31.2); Mean Corpuscular Volume 91.0 fl (81-99); Nucleated Red Blood Cells % 0 %; Platelet Count 298 K/mm3 (142-424); Red Blood Count 3.98 M/mm3 (4.20-5.40); Red Cell Distribution Width-SD 43.7 fL; White Blood Count 6.0 K/mm3 (4.8-10.8)
[2025-02-15 01:37] LABS: Alanine Aminotransferase 19 U/L (12-78); Albumin Level 4.2 g/dl (3.5-5.0); Albumin/Globulin Ratio 1.6 (1.1-1.8); Alkaline Phosphatase 95 U/L (38-126); Anion Gap 7.9 mEq/L (5-15); Aspartate Amino Transferase 34 U/L (14-36); Bilirubin,Total 0.2 mg/dl (0.2-1.3); Blood Urea Nitrogen 13 mg/dl (7-17); Calcium 9.6 mg/dl (8.4-10.2); Carbon Dioxide 32 mmol/L (22.0-30.0); Chloride 101 mmol/L (98-107); Creatinine Clearance Estimated 85 mL/min (50-200); Creatinine,Serum 0.70 mg/dl (0.52-1.04); Estimated Glomerular Filt Rate 84 ml/min (>60); GFR (African American) 102 ML/MIN (>60); Globulin 2.7 g/dL (1.3-3.2); Glucose 93 mg/dl (74-100); Potassium 3.9 mmoL/L (3.5-5.1); Sodium 137 mmol/L (136-145); Total Protein,Serum 6.9 g/dl (6.3-8.2)
[2025-02-15 01:40] LABS: INR 0.97 (0.9-1.1); Prothrombin Time 10.8 seconds (10.1-12.5)
[2025-02-15] MEDS: FENTANYL 100MCG/2ML VIAL 50 MCG IV (02:04)
[2025-02-15] MEDS: IOPAMIDOL-370 (76%);100ML BOTTLE 160 ML IV (02:13)
[2025-02-15] MEDS: 0.9 % SODIUM CHLORIDE 50 ML VIAL 100 ML IV (02:13)
[2025-02-15] MEDS: SODIUM CHLORIDE 0.9% 10ML SYR (RAD ONLY) 10 ML IV (02:14)
[2025-02-15 03:06] LABS: Hepatitis C Ab Qual. W/ RFX NEGATIVE (Negative)
--- NOTE | 2025-02-15 03:31 | P.HP_ITS ---
<Statement entered by Hardeep Rivear MD - 02/15/25 10:40> Rounded on patient after nurse practitioner. Personally examined and interviewed patient. Agree with exam findings and care plan as documented. History of Present Illness *Admission Date: 02/15/25 *Reason for visit:: Fall, Right Hip Pain *History of present illness: Ms. Kennedy is a 64-year-old female with a past medical history of Type II DM, Diabetic Neuropathies, OA, Hypertension, CAD, Anxiety and Depression. She presents to [facility] due to a fall in the home at ground level that resulted in a right forehead laceration and pain to the left hand and right hip just prior to presentation. She reports that she was walking in her home carrying a load of laundry when she tripped and fell and hit her head, left hand and right hip. She reports a previous history of Right Hip Repair with hardware, this resulted in immediate pain and the inability to walk, this prompted her visit to the ER. In the ER, she underwent multiple scans of the body. A Left Hand xray showed a non-displaced fracture of the 2nd metacarpal of the hand. CT of the hip showed no acute finding, however the patient was unable to walk and had extreme pain. The patient is admitted with initial impression: Ambulatory Dsyfunction and Fall. [facility] Disclaimer: The information contained in this section may have been updated after the patient was seen, as this information can be updated by other users. Medical History Frequent falls Dysphagia, unspecified Iron deficiency anemia BMI 33.0-33.9,adult Urge incontinence Primary generalized (osteo)arthritis Constipation, unspecified Irritable bowel syndrome with diarrhea Gastro-esophageal reflux disease without esophagitis Venous insufficiency (chronic) (peripheral) Anxiety Migraine Urinary incontinence Diabetes mellitus, type 2 Hyperlipidemia Normal colonoscopy Hx of fracture of wrist x4 right Derangement of sacroiliac joint Fracture acetabulum-closed Acute postoperative anemia due to expected blood loss Diabetes Degenerative joint disease of left hip HHD (hypertensive heart disease) CAD (coronary artery disease) HTN (hypertension) Diastolic dysfunction Right knee pain Right shoulder injury Post laminectomy syndrome DDD (degenerative disc disease), lumbar Surgical History History of cholecystectomy History of hysterectomy History of knee replacement History of surgery on left wrist History of left hip replacement x2 Family History Other Family history of diabetes mellitus type II Family hx-stroke Social History Smoking Status: Never smoker second hand exposure: No alcohol intake: never counseling provided: none substance use type: denies use current occupational status: unemployed Travel in the last 8 weeks?: None household members: spouse and family housing: house current occupation: [employer] current occupational exposures/hazards: No caffeine: Yes do you feel safe at home: Yes victim of physical abuse: No victim of emotional abuse: No victim of sexual abuse: No would you like helpful sources: No Have you lived/traveled outside US in past 30 days?: No Contact w/someone who lives/traveled outside US past 30 days?: No Exposure to someone with infectious disease in past 14 days?: No Do you have a fever (greater than 100.4 F or 38 C)?: No Have you tested positive for COVID-19?: No Exposed to someone with COVID-19 in past 14 days?: No Do you have a sore throat?: No Do you have a cough?: No Do you have any weakness?: No Do you have any diarrhea?: No Are you experiencing any unusual bleeding?: No Do you have any muscle aches/pain?: No Do you have any abdominal pain?: No Are you experiencing loss of taste or smell?: No Other Medical History Have you received the Flu Vaccine for this season: No Have you received the Pneumonia Vaccine: Yes Review of Systems Review of Systems Review of systems:: pertinent systems reviewed and negative unless documented below Constitutional Constitutional: Reports body ache(s) and Reports frequent falls Eyes Eyes: Reports system reviewed and no additional complaints, except as documented ENT Ears, Nose, Mouth, and Throat: Reports system reviewed and no additional co mplaints, except as documented *Cardiovascular Cardiovascular: Reports system reviewed and no additional complaints, except as documented *Respiratory Respiratory: Reports system reviewed and no additional complaints, except as documented *Gastrointestinal Gastrointestinal: Reports system reviewed and no additional complaints, except as documented *Genitourinary Genitourinary: Reports system reviewed and no additional complaints, except as documented *Musculoskeletal Musculoskeletal: Reports abnormal gait, Reports back pain, Reports joint swelling, Reports limited range of motion, Reports muscle weakness, Reports myalgias and Reports radiating pain into limb Integumentary/Breasts Skin/Breast: Reports system reviewed and no additional complaints, except as documented *Neurologic Neurologic: Reports abnormal gait and Reports frequent falls Psychiatric Psychiatric: Reports system reviewed and no additional complaints, except as documented Endocrine Endocrine: Reports system reviewed and no additional complaints, except as documented Hematologic/Lymphatic Hematologic/Lymphatic: Reports system reviewed and no additional complaints, except as documented Allergic/Immunologic Allergic/Immunologic: Reports system reviewed and no additional complaints, except as documented Meds Home Medications and Allergies Home Medications ?Medication ?Instructions ?Recorded ?Confirmed ?Type ascorbic acid (vitamin C) 500 mg 500 mg PO DAILY Suppl ement 07/16/17 01/18/25 History tablet cholecalciferol (vitamin D3) 10 400 unit PO DAILY Supp lement 07/16/17 01/18/25 History mcg (400 unit) capsule multivitamin 1 tab PO DAILY suppleemnt 01/18/25 History atogepant 60 mg tablet (Qulipta) 60 mg PO DAILY #30 ta bs 12/05/23 01/18/25 Rx spironolactone 25 mg tablet 25 mg PO DAILY PRN GERD #1 5 tabs 12/05/23 01/18/25 Rx cyanocobalamin (vitamin B-12) 100 mcg IM QMONTH 01/18/25 History 1,000 mcg/mL injection solution syringe with needle 3 mL 25 gauge #1 ea 12/19/2301/18 History x 1 (BD Luer-Filomena Syringe) duloxetine 60 mg capsule,delayed See Rx Instructions . Route 03/18/24 01/18/25 Rx release .COMPLEX #60 caps furosemide 40 mg tablet 40 mg PO DAILY PRN edema #30 tabs 03/18/24 01/18/25 Rx rimegepant 75 mg disintegrating 75 mg PO DAILY PRN Gera robbie 04/05/24 01/18/25 History tablet (Nurtec ODT) Headache mupirocin 2 % topical ointment 1 applic topical BID ce llulitis 3 05/25/24 01/18/25 Rx weeks #22 grams ibuprofen 600 mg tablet 600 mg PO TID PRN pain 30 da ys #90 08/05/24 01/18/25 Rx tabs potassium chloride 20 mEq 1 meq (0.05 x 20 mEq) PO PONCE LY 08/24/24 01/18/25 Rx tablet,extended release(part/cryst) supplemtn #90 tabs gabapentin 100 mg capsule 100 mg PO TID PRN nerve pain 10 08/26/24 01/18/25 Rx days #30 caps tramadol 50 mg tablet 50 mg PO HS #30 tabs 5 01/18/25 Rx lamotrigine 200 mg tablet See Rx Instructions .Route 0 11/05/24 01/18/25 Rx .COMPLEX #60 tabs promethazine 25 mg tablet 25 mg PO DIRECTED PRN Arsh sea 11/08/24 01/18/25 Rx #30 tabs alendronate 70 mg tablet 70 mg PO WEEKLY #12 tabs 10/0501/18/25 Rx lorazepam 1 mg tablet 1 mg PO Q6H PRN anxiety #120 tabs 01/06/25 01/18/25 Rx carvedilol 3.125 mg tablet See Rx Instructions .Route 01/07/25 01/18/25 Rx .COMPLEX #180 tabs semaglutide 2 mg/dose (8 mg/3 mL) 2 mg (0.75 mL) SQ WE EKLY #3 mL 01/18/25 01/18/25 Rx subcutaneous pen injector (Ozempic) zolpidem 10 mg tablet 10 mg PO HS PRN Sleep #30 ta bs 02/01/25 Rx New Prescriptions to Start Prescriptions: Allergies Allergy/AdvReac Type Severity Reaction Status Date / Time cephalexin (From Keflex) Allergy Severe SERUM Verified 01/18/25 10:04 SICKNESS ; JOINTS LOCKED morphine Allergy Intermediate I-HIVES Verified 01/18/25 10:04 Penicillins Allergy Intermediate I-HIVES Verified 01/18/25 10:04 adhesive tape AdvReac Mild Unknown Verified 01/18/25 10:04 allergy reaction Exam Data for Last 24 hours Vital signs and Labs for Last 24 Hours: Temp Pulse Resp BP Pulse Ox O2 Del Method 98.1 F 79 14 192/100 H 97 Room Air 02/15/25 00:59 02/15/25 00:59 02/15/25 00:59 02/15/25 00:59 02/15/25 01:29 02/15/25 01:29 Laboratory Results - last 24 hr 02/15/25 01:20: WBC 6.0, RBC 3.98 L, Hgb 11.6 L, Hct 36.2 L, MCV 91.0, MCH 29.1, MCHC 32.0, RDW 13.1, Plt Count 298, MPV 8.7, Neut % (Auto) 63.3, Lymph % (Auto) 24.7, [place] % (Auto) 9.4 H, Eos % (Auto) 2.2, Baso % (Auto) 0.2, Neut # (Auto) 3.8, Lymph # (Auto) 1.5, [place] # (Auto) 0.6, Eos # (Auto) 0.1, Baso # (Auto) 0.0, PT 10.8, INR 0.97, Sodium 137, Potassium 3.9, Chloride 101, Carbon Dioxide 32 H, Anion Gap 7.9, BUN 13, Creatinine 0.70, Estimated Creat Clear 85, Estimated GFR 84, Est GFR ( Amer) 102, Glucose 93, Calcium 9.6, Total Bilirubin 0.2, AST 34, ALT 19, Alkaline Phosphatase 95, Total Protein 6.9, Albumin 4.2, Globulin 2.7, Albumin/Globulin Ratio 1.6, HCV Ab RYAN w/Rflx PCR Qn Negative, HIV Ag/Ab Combo Qual Negative I & O for Last 24 hours: Intake & Output 02/12/25 02/13/25 02/14/25 02/15/25 23:59 23:59 23:59 23:59 Weight 95.254 kg Constitutional Constitutional: no acute distress *Routine HEENT Exam Head: Present normocephalic, abrasion and laceration Eye: Present EOMI and PERRL ENT: Present mucous membranes moist *Routine Neck Exam Neck: Present full ROM Routine Chest/Breast/Axilla Exam Chest wall: Present tenderness *Routine Respiratory Exam Respiratory: Present CTA bilaterally *Routine Cardiovascular Exam Cardiovascular: Present RRR, Normal S1 and Normal S2 *Routine Abdominal Exam Abdominal: Present soft and normoactive bowel sounds *Routine Rectal Exam Rectal:: deferred *Routine Genitalia Exam Genitalia:: deferred *Routine Extremities Exam Extremities: Present tenderness *Routine Skin Exam Skin: Present lesions *Routine Neurological Exam Neurological: Present alert, oriented X3 and CN II-XII intact Assessment and Plan *Assessment and plan (1) Ambulatory dysfunction: Start date: 02/15/25 Start time: 03:40 Status: Acute Category: Medical Code(s): R26.2 - Difficulty in walking, not elsewhere classified Plan: - Presents to [facility] due to a fall at ground level in the home - Reports issues with walking and gait has been ongoing - Reports history of previous hardware/hip replacement on the right - CT scan with no acute findings - Analgesics for discomfort - Check MRI of the hip (2) Fall: Start date: 02/15/25 Status: Acute Qualifiers: Encounter type: initial encounter Qualified Code(s): W19.XXXA - Unspecified fall, initial encounter Category: Medical Code(s): W19.XXXA - Unspecified fall, initial encounter Plan: - Check MRI - Treat as indicated - PT/OT following imaging (3) Forehead laceration: Start date: 02/15/25 Start time: 03:40 Status: Acute Qualifiers: Encounter type: initial encounter Qualified Code(s): S01.81XA - Laceration without foreign body of other part of head, initial encounter Category: Medical Code(s): S01.81XA - Laceration without foreign body of other part of head, initial encounter Plan: - s/p Repair in the ER - Neuro Checks, monitoring (4) Left hand fracture: Start date: 02/15/25 Status: Acute Qualifiers: Encounter type: initial encounter Fracture type: closed Qualified Code(s): S62.92XA - Unspecified fracture of left wrist and hand, initial encounter for closed fracture Category: Medical Code(s): S62.92XA - Unspecified fracture of left wrist and hand, initial encounter for closed fracture Plan: s/p Splinting in the ER - Continue Analgesics for pain - Follow up with Orthopaedics at discharge (5) HTN (hypertension): Start date: 02/15/25 Start time: 03:40 Status: Chronic Qualifiers: Hypertension type: primary hypertension Qualified Code(s): I10 - Essential (primary) hypertension Category: Medical Code(s): I10 - Essential (primary) hypertension Plan: - Patient cannot recall medications - Verify through Pharmacy - Restart home medications (6) CAD (coronary artery disease): Status: Chronic Qualifiers: Coronary Disease-Associated Artery/Lesion type: [place] artery [place] vs. transplanted heart: [place] heart Associated angina: without angina Qualified Code(s): I25.10 - Atherosclerotic heart disease of [place] coronary artery without angina pectoris Category: Medical Code(s): I25.10 - Atherosclerotic heart disease of [place] coronary artery without angina pectoris Plan - Patient cannot recall medications - Verify through Pharmacy - Restart home medications
[2025-02-15] MEDS: TET/DIPHTH/PERT-ADULT 0.5ML SYRINGE 0.5 ML IM (03:51)
[2025-02-15] MEDS: OXYCODONE 5MG IMMEDIATE RELEASE TABLET 5 MG PO (03:52)
--- NOTE | 2025-02-15 04:02 | PC.NURSE ---
report given to Lio CAMPOS for transport.
[2025-02-15 04:59] LABS: POC Glucose,Bedside 115 (70-110)
--- NOTE | 2025-02-15 04:59 | PC.NURSE ---
On arrival to floor, patient placed on room air during admission and resting, O2 maintained 97-98% on room air.
--- NOTE | 2025-02-15 05:31 | MR_ITS ---
FINAL REPORT TECHNIQUE: Multiplanar MR imaging of the pelvis was obtained without contrast. CLINICAL HISTORY: fall, pain right hip pain left total hip replacement pt also has pain pump FINDINGS: There is extensive magnetic artifact associated with left hip prosthesis and pain pump in the superior right gluteal region. On the coronal images, there is mild narrowing of the right hip joint space. The right acetabular labrum is intact. There is no evidence of marrow edema or osteochondral injury. There is mild increased signal in the distal iliopsoas tendon well-seen on images 11 through 14 of series 4 consistent with a partial tear. There is abnormal signal in the distal iliopsoas muscle with extensive edema and surrounding fluid. This is present in the anterior portion of the iliopsoas muscle. Findings are well-seen on images 33 through 41 of series 3. There is no acute bony abnormality. IMPRESSION: High-grade partial tear of the musculotendinous junction of the anterior iliopsoas with extension of a tear into the distal iliopsoas tendon. Reviewed, Interpreted and Dictated by Houston Elizabeth MD Transcribed by Miladys Uribe Authenticated and [facility]
--- NOTE | 2025-02-15 08:11 | XR_ITS ---
FINAL REPORT CLINICAL HISTORY: Eval pain pump for MRI FINDINGS: AP and lateral views of the abdomen were obtained. Pain pump is oriented along the Z axis at the S1 level. There is posterior fusion bridging L4-5 and L5-S1. There are advanced changes of degenerative disc disease in the upper lumbar spine. IMPRESSION: Pain pump oriented along the Z axis at the S1 level. Reviewed, Interpreted and Dictated by Houston Elizabeth MD Transcribed by Leticia Schuster Authenticated and [facility]
[2025-02-15] MEDS: POTASSIUM CHLORIDE 20MEQ TAB 20 MEQ PO (08:49)
--- NOTE | 2025-02-15 09:44 | HMH.OTEV ---
OT Inpatient Evaluation Rehab OT IP Evaluation Start: 02/15/25 04:35 Freq: ONCE Status: Active Protocol: [facility] 09[facility] (Rec: 02/15/25 09:43 [facility] [id number]) Rehab OT IP Assessment Subjective History Pt oriented x 4 on arrival. Pt agreeable to engage in therapy evaluation. Pt admitted on 02/15/25 due to right hip pain after a fall. History and physical: Ms. Kennedy is a 64-year-old female with a past medical history of Type II DM, Diabetic Neuropathies, OA, Hypertension, CAD, Anxiety and Depression. She presents to [facility] due to a fall in the home at ground level that resulted in a right forehead laceration and pain to the left hand and right hip just prior to presentation. She reports that she was walking in her home carrying a load of laundry when she tripped and fell and hit her head, left hand and right hip. She reports a previous history of Right Hip Repair with hardware, this resulted in immediate pain and the inability to walk, this prompted her visit to the ER. In the ER, she underwent multiple scans of the body. A Left Hand xray showed a non-displaced fracture of the 2nd metacarpal of the hand. CT of the hip showed no acute finding, however the patient was unable to walk and had extreme pain. The patient is admitted with initial impression: Ambulatory Dsyfunction and Fall Subjective Prior to being in the hospital, pt lived at home with her and children. Pt reports normally she is independent with all ADLs and IADLs. Pt does use a rollator during functional transfers to increase safety . Pt also still drives. Objective Patient Orientation Person,Place,Birthday,Month Right Upper WFL Extremity Gross ROM Left Upper Extremity Sev Limitation >75% Gross ROM Bed Mobility bed mobility-scooting,bed mobility - supine/sit Assist Level Minimal x 1 (25% assist) Transfer Training Sit/Stand/Step Transfer Assist Level Minimal x 2 (25% assist) Chair Transfer Minimal x 2 (25% assist) Ability Chair Transfer Stand Step Pivot Technique Rehab OT IP prob,goals,plan Problems Date of Evaluation: 02/15/25 OT IP Problems Bed Mobility,Transfers,Balance,Self care,Safety Rehab Potential Rehab Potential Good Equipment Needs Assistive Devices Rolling / Wheeled Walker Plan OT intervention Plan Bed Mobility,Transfers,Balance,Self care,Safety, Therapeutic Exercise OT Plan Frequency Daily Duration LOS Discharge Goals Bed Mobility Ability Standby Assistance Sit to Stand Chair Contact Guard/Hand Hold,Minimal x 1 (25% assist) Transfer Ability Chair Transfer Contact Guard/Hand Hold,Minimal x 1 (25% assist) Ability Chair Transfer Sit to/from Ambulatory Technique Chair Transfer Straight Cane Assistive Devices Lower Body Dressing Minimal Assistance Ability Upper Body Dressing Minimal Assistance Ability Performing Toilet Minimal Assistance Hygiene Ability Overall Commode/ Contact Guard,Minimal Assistance Toilet Transfer Ability Discharge Plan OT Discharge Plan Pt will continue to be seen for OT services while at [facility]. Pt can return home with family assistance as needed once she is medically stable per physician. Therapist does recommend OT evaluation upon returning home for continued skilled therapy services. Eval Complexity Eval Charge Codes 53305 - Moderate Complexity PHYSICIAN CERTIFICATION: I certify the specified therapy services for Paige Kennedy are required, authorized, and reviewed every 30 days.
--- NOTE | 2025-02-15 09:49 | SW/DCPLANNER ---
Addendum entered by [facility] 02/17/25 15:00: Patient has been approved SNF level of care and can admit to [facility] today per Jason. I have updated Edyta Haley and nursing staff. Addendum entered by [facility] 02/17/25 14:19: Per Jason w/ [facility] auth is still pending at this time. Updated patient information has been faxed. Addendum entered by [facility] 02/16/25 12:53: Jason caden/ [facility] stated that auth will be started today. I have requested that Danay w/ [facility] cancel auth due to patient preferring [facility]. Addendum entered by [facility] 02/16/25 12:16: Patient is out of network w/ [facility]. Jason caden/ [facility]ila is currently reviewing insurance information but approved clinically. Danay negrete/ [facility] stated that patient has been accepted and precert will be started today. Danay stated that if insurance approves and female bed is available at this time they could accept. I will continue to follow up w/ [facility] and [facility]. Patient is medically stable for discharge today. Addendum entered by [facility] 02/16/25 09:42: Per therapy and patient she is more weak today than yesterday. Therapy now recommends placement for this patient. Patient is agreeable to placement and prefers [facility], [facility] or [facility]. If these three local facilities are unable to accept then she prefers [facility] in [place]. Patient information will be faxed to facilities this AM. I will continue to follow up. Per MD patient is medically stable for discharge once I find an accepting facility. I will continue to follow up. Addendum entered by Diana Reynoso 02/15/25 14:54: Patient was accepted by [facility]. Dante Lauren Original Note: Spoke with patient regarding home health services once she is medically stable and ready for discharge. Patient stated that she is interested in home health and that she does not have a preference of what agency i send her information to. I will fax patient's information to [facility] and will update once i hear back. I also informed patient that i might not be able to get home health due to her insurance. I asked patient if i could not get home health if she would be interested in coming back up to the hospital for outpatient therapy and patient stated that she would. Dante Lauren
--- NOTE | 2025-02-15 10:21 | HMH.PTEV ---
Physical Therapy Evaluation Rehab PT IP Evaluation Start: 02/15/25 04:35 Freq: ONCE Status: Active Protocol: Document 02/15/25 09:53 JHONATAN (Rec: 02/15/25 10:21 JHONATAN [id number]) Subjective/History History History 64-year-old female with a past medical history of Type II DM, Diabetic Neuropathies, OA, Hypertension, CAD, Anxiety and Depression. She presents to [facility] due to a fall in the home at ground level that resulted in a right forehead laceration and pain to the left hand and right hip just prior to presentation. She reports that she was walking in her home carrying a load of laundry when she tripped and fell and hit her head, left hand and right hip. She reports a previous history of Right Hip Repair with hardware, this resulted in immediate pain and the inability to walk, this prompted her visit to the ER. In the ER, she underwent multiple scans of the body. A Left Hand xray showed a non-displaced fracture of the 2nd metacarpal of the hand. CT of the hip showed no acute finding, however the patient was unable to walk and had extreme pain. Pt reports she is generally independent with all mobility at baseline, sometimes uses RW and sometimes doesn't, generally independent with ADLs, lives with spouse and children, has 3 DESTINEY the home. Subjective Subjective Pt reports pain in her R anterior hip/groin area 8/10 this am. She does agree to mobility assessment. [facility] How much help from another person do you currently need... Turning from your None back to your side while in a flat bed without using bedrails? Moving from lying on A little back to sitting on the side of a flat bed without using bedrails? Moving to and from a A little bed to a chair ( including a wheelchair)? Standing up from a A little chair using your arms? (e.g., wheelchair, bedside chair) Walking in hospital A little room? Climbing 3-5 steps A lot with a railing? Mobility Score 18 Mobility Level [facility] Mobility 6 Walk 10 steps or more Mobility Calculator Rehab PT IP Eval Objective Appearance Patient Behavior Appropriate Patient Orientation Person,Place,Time Difficulty following none instructions Speech Pattern Clear Ambulation Patient Able to Yes Ambulate Ambulation Observation IP General Gait Antalgic Gait,Shuffling Step,Decrease Weight Bear (R), Pattern Observation Decrease Stride Lngth (R),Decrease Stride Lngth (L) Ambulation Distance 5 (feet) Ambulation Assistive None Device Ambulation Ability Minimal x 2 (25% assist) Balance Ability to Arise Able, uses arms to help Sitting Balance Steady, safe Standing Balance Steady, wide stance Dynamic Sitting Good Balance Ability Dynamic Standing Fair Balance Ability Transfers Bed Transfer Ability Contact Guard/Hand Hold Chair Transfer Minimal x 1 (25% assist) Ability Sit to Stand Bed Minimal x 1 (25% assist) Transfer Ability Sit to Stand Chair Minimal x 1 (25% assist) Transfer Ability Rehab PT IP prob,goals,plan Problems Date of Evaluation: 02/15/25 PT IP Problems Bed Mobility,Transfers,Gait Rehab Potential Rehab Potential Good Plan PT Intervention Plan Bed Mobility,Transfers,Gait,Therapeutic Exercise PT Plan Frequency Daily Duration LOS Discharge Goals Bed Transfer Ability Supervision/Stand by Sit to Stand Chair Contact Guard/Hand Hold Transfer Ability Ambulation Assistive Rolling Walker Device Ambulation Distance 15 (feet) Discharge Plan PT Discharge Plan Pt is currently appropriate to return home once medically stable for d/c with family assist. Recommend home health therapy services after d/c. Skilled acute therapy is indicated to improve strength, endurance to activity, transfers, and ambulation in order to return pt to [facility]. Eval Complexity Eval Charge Codes 08479 - High Complexity PHYSICIAN CERTIFICATION: I certify the specified therapy services for Paige Kennedy are required, authorized, and reviewed every 30 days.
[2025-02-15 11:04] LABS: POC Glucose,Bedside 94 (70-110)
--- NOTE | 2025-02-15 16:02 | EXP.EVENT.NO ---
Patient's MRI returned with iliopsoas tear. Still having significant pain and difficulty ambulating. After much discussion, patient will discharge home but needs to rearrange her house to get around with a walker. Will plan to discharge first thing in the morning. Assess pain control needs that she is still requiring IV Dilaudid. Transition to oral oxycodone for improved pain control. Have therapy reevaluate in the morning. Case management has coordinated home health for PT and OT at discharge
[2025-02-15] MEDS: MULTIVITAMIN TABLET 1 EACH PO (16:47)
[2025-02-15] MEDS: OXYCODONE 5MG W/APAP 325MG TABLET 1 EACH PO (16:52)
[2025-02-15 17:05] LABS: POC Glucose,Bedside 71 (70-110)
--- NOTE | 2025-02-15 17:47 | PC.NURSE ---
pt is A&Ox4. pt has been in pain today with her right leg, pain has gotten better after pain meds are given. her blood sugars have been in normal range today and she hasn't required coverage. pt got up to the chair this morning for a while. no other needs at this time. call light is within reach. safety measures in place.
[2025-02-15 20:29] LABS: POC Glucose,Bedside 85 (70-110)
[2025-02-16] VITALS: BP 154/80; PULSE 67; RESP 18; TEMP 36.5; O2SAT 96
[2025-02-16] MEDS: OXYCODONE 5MG W/APAP 325MG TABLET 1 EACH PO ×4 (00:54→23:33)
[2025-02-16] MEDS: HYDROMORPHONE 2MG/ML SYRINGE 0.5 MG IV (03:05)
[2025-02-16 04:00] VITALS: BP 153/75; PULSE 66; RESP 18; TEMP 37; O2SAT 93; BMI 32.8
[2025-02-16 05:50] LABS: POC Glucose,Bedside 89 (70-110)
[2025-02-16 06:14] LABS: Hematocrit 40.3 % (37.0-47.0); Hemoglobin 13.0 g/dL (12.2-16.2); Immature Granulocytes % 0.2 %; Mean Corpuscular HGB Conc 32.3 g/dL (31.8-35.4); Mean Corpuscular Hemoglobin 29.7 pg (27.0-31.2); Mean Corpuscular Volume 92.2 fl (81-99); Nucleated Red Blood Cells % 0 %; Platelet Count 221 K/mm3 (142-424); Red Blood Count 4.37 M/mm3 (4.20-5.40); Red Cell Distribution Width-SD 43.8 fL; White Blood Count 5.8 K/mm3 (4.8-10.8)
[2025-02-16 06:19] LABS: Anion Gap 8.8 mEq/L (5-15); Blood Urea Nitrogen 9 mg/dl (7-17); Calcium 8.9 mg/dl (8.4-10.2); Carbon Dioxide 30 mmol/L (22.0-30.0); Chloride 103 mmol/L (98-107); Creatinine Clearance Estimated 85 mL/min (50-200); Creatinine,Serum 0.50 mg/dl (0.52-1.04); Estimated Glomerular Filt Rate 124 ml/min (>60); GFR (African American) 150 ML/MIN (>60); Potassium 3.8 mmoL/L (3.5-5.1); Sodium 138 mmol/L (136-145)
[2025-02-16 06:33] LABS: Glucose 84 mg/dl (74-100)
[2025-02-16 08:00] VITALS: BP 125/66; PULSE 71; RESP 20; TEMP 36.9; O2SAT 94
[2025-02-16] MEDS: POTASSIUM CHLORIDE 20MEQ TAB 20 MEQ PO (08:05)
[2025-02-16 08:45] VITALS: O2SAT 94
[2025-02-16] MEDS: KETOROLAC 30MG/ML VIAL 30 MG IV ×2 (09:14→20:16)
[2025-02-16 11:28] LABS: POC Glucose,Bedside 115 (70-110)
--- NOTE | 2025-02-16 13:49 | P.PN_ITS ---
<Statement entered by Hardeep Rivera MD - 02/16/25 14:09> Rounded on patient after nurse practitioner. Personally examined and interviewed patient. Agree with exam findings and care plan as documented. Subjective *Date: 02/16/25 *Time: 13:49 Interval history: Patient sitting up in bed, states her pain is moderate when not moving. Patient had MRI yesterday whihc shows partial tear at the junction of the anterior iliopsoas. she states that it is 10/10 when trying to ambulate or move out of the bed. PT/OT consulted for further evaluation. Patient receiving oral pain medication, has pain pump as well. Medical Exam Vital signs and Labs for Last 24 Hours: Vital Signs Temp Pulse Resp BP Pulse Ox O2 Del Method 02/16/25 13:10 Room Air 02/16/25 11:00 Room Air 02/16/25 08:45 94 L Room Air 02/16/25 08:00 98.5 F 71 20 125/66 94 L Room Air 02/16/25 07:00 Room Air 02/16/25 05:00 Room Air 02/16/25 04:00 98.6 F 66 18 153/75 H 93 L Room Air 02/16/25 03:00 Room Air 02/16/25 01:00 Room Air 02/16/25 00:00 97.7 F 67 18 154/80 H 96 Room Air 02/15/25 23:00 Room Air 02/15/25 21:00 Room Air 02/15/25 20:00 Room Air 02/15/25 20:00 98.0 F 66 16 136/96 H 96 Room Air 02/15/25 18:49 Room Air 02/15/25 17:06 Room Air 02/15/25 16:00 68 19 133/71 97 Room Air 02/15/25 15:00 Room Air Intake and Output 02/15/25 02/16/25 02/16/25 23:59 07:59 15:59 Intake Total 60 / 910 250 / 490 240 / 490 Output Total 750 / 750 1200 / 1200 Balance -690 / 160 -950 / -710 240 / -710 Intake: Intake, Oral Amount 60 / 910 250 / 490 240 / 490 Output: Output, Urine Amount 750 / 750 1200 / 1200 Other: Number of Unmeasured Voids 1 Weight 94.982 kg Patient Weight 02/16/25 23:59 Weight 94.982 kg Laboratory Results - last 24 hr 02/15/25 16:45: POC Glucose 71 02/15/25 20:20: POC Glucose 85 02/16/25 05:42: POC Glucose 89 02/16/25 05:44: WBC 5.8, RBC 4.37, Hgb 13.0, Hct 40.3, MCV 92.2, MCH 29.7, MCHC 32.3, RDW 12.9, Plt Count 221 D, MPV 9.1, Neut % (Auto) 68.2, Lymph % (Auto) 21.0, [place] % (Auto) 8.8, Eos % (Auto) 1.6, Baso % (Auto) 0.2, Neut # (Auto) 4.0, Lymph # (Auto) 1.2, [place] # (Auto) 0.5, Eos # (Auto) 0.1, Baso # (Auto) 0.0, Sodium 138, Potassium 3.8, Chloride 103, Carbon Dioxide 30, Anion Gap 8.8, BUN 9 D, Creatinine 0.50 L D, Estimated Creat Clear 85, Estimated GFR 124, Est GFR ( Amer) 150 D, Glucose 84, Calcium 8.9 02/16/25 11:13: POC Glucose 115 H I & O for Labs for Last 24 Hours: Intake & Output 02/13/25 02/14/25 02/15/25 02/16/25 23:59 23:59 23:59 23:59 Intake Total 660 / 910 490 / 490 Output Total 750 / 750 1200 / 1200 Balance -90 / 160 -710 / -710 Weight 96.071 kg 94.982 kg Constitutional: Present mild distress, obese, chronically ill appearing and combative Head: Present other (Abrasion above right eyebrow) Eyes: Absent eye pain or eye discharge ENT: Present normal exam Neck: Present normal inspection; Absent tenderness Respiratory: Present CTA bilaterally, able to speak in complete sentences and symmetric chest movement; Absent wheezes or crackles Cardiac: Present Reg Rate and Rhythm; Absent No Murmur GI: Present soft and distention; Absent tenderness Rectal (female): Present deferred (female): Present deferred Extremities: Absent full ROM or edema Skin: Present intact and dry Comment:: Scattered bruising Assessment and Plan *Assessment and plan (1) Strain of right iliopsoas muscle: Status: Acute Category: Medical Code(s): S76.811A - Strain of other specified muscles, fascia and tendons at thigh level, right thigh, initial encounter (2) Forehead laceration: Status: Acute Qualifiers: Encounter type: initial encounter Qualified Code(s): S01.81XA - Laceration without foreign body of other part of head, initial encounter Category: Medical Code(s): S01.81XA - Laceration without foreign body of other part of head, initial encounter (3) Ambulatory dysfunction: Status: Acute Category: Medical Code(s): R26.2 - Difficulty in walking, not elsewhere classified (4) Fall: Status: Acute Qualifiers: Encounter type: initial encounter Qualified Code(s): W19.XXXA - Unspecified fall, initial encounter Category: Medical Code(s): W19.XXXA - Unspecified fall, initial encounter (5) Acute pain of right hip: Status: Acute Category: Medical Code(s): M25.551 - Pain in right hip (6) Closed fracture of 2nd metacarpal: Status: Acute Qualifiers: Encounter type: initial encounter Fracture alignment: nondisplaced Laterality: left Metacarpal location: other portion of metacarpal Qualified Code(s): S62.391A - Other fracture of second metacarpal bone, left hand, initial encounter for closed fracture Category: Medical Code(s): S62.308A - Unspecified fracture of other metacarpal bone, initial encounter for closed fracture (7) DDD (degenerative disc disease), lumbar: Status: Chronic Category: Medical Code(s): M51.369 - Other intervertebral disc degeneration, lumbar region without mention of lumbar back pain or lower extremity pain (8) HTN (hypertension): Status: Chronic Qualifiers: Hypertension type: primary hypertension Qualified Code(s): I10 - Essential (primary) hypertension Category: Medical Code(s): I10 - Essential (primary) hypertension Plan Ms. Kennedy is a 64-year-old female who presented to the emergency department after a ground-level fall at home. She reports that she has had issues with walking and gait for at least a month now. She does have a history of multiple falls, and states she uses a walker/cane to ambulate around her home. CT in the emergency department did not reveal any acute fractures in her pelvis/hips but she complains of severe right hip pain. MRI IMPRESSION: High-grade partial tear of the musculotendinous junction of the anterior iliopsoas with extension of a tear into the distal iliopsoas tendon. Patient also was found to have a left nondisplaced second metacarpal fracture. It is currently splinted and patient plans to follow-up with her hand doctor she sees at , Dr. Reyes. PT/OT were consulted and recommending rehab facility due to worsening pain with movement, frequent falls, weakness. Patient currently lives at home with and children. #Ambulation dysfunction #Fall #Difficulty in walking #Strain of right iliopsoas muscle ? Patient had numerous scans in the ED, head, lumbar spine, neck, thoracic spine, pelvis, hand, wrist, femur, hip, pelvis CT's. Acute left second metacarpal nondisplaced fracture noted, otherwise scans unremarkable. ?Patient continued to have worsening pain, unable to ambulate with PT/OT. MRI yesterday shows IMPRESSION: High-grade partial tear of the musculotendinous junction of the anterior iliopsoas with extension of a tear into the distal iliopsoas tendon. ? Patient originally thought to be able to go home with home health services to improve strength, after reevaluation today PT/OT recommends rehab facility due to patient's inability to ambulate without immense pain. She has been accepted to [place] on insurance authorization at this time. ? Patient currently receiving oxycodone 5 mg every 4 hours as needed for severe pain. Patient has Dilaudid intrathecal pain pump in place as well. Monitoring for toxicity. ?CMP, CBC unremarkable. No anemia, no electrolyte abnormalities, normal kidney function. #Diabetes mellitus: Patient has a history of diabetes mellitus, A1c 5.8%. Patient's blood sugars have all been within normal limits. #Hypertension: Continue carvedilol 3.125 mg p.o. twice daily and furosemide 40 mg daily as needed. #Depression/anxiety: Continue duloxetine 60 mg twice daily and lorazepam 1 mg every 6 hours as needed. Full code VTE?Lovenox Regular diet
[2025-02-16 16:00] VITALS: BP 119/68; PULSE 59; RESP 14; TEMP 36.8; O2SAT 92
[2025-02-16] MEDS: MULTIVITAMIN TABLET 1 EACH PO (16:52)
--- NOTE | 2025-02-16 18:17 | PC.NURSE ---
pt is A&Ox4. pt got up to chair twice today with PT. pt has complained of pain in her right leg today and pain was relieved with toradol. pt is to be discharged to [facility] tomorrow. no other complaints at this time. call light is within reach. safety measures in place.
[2025-02-16 19:55] VITALS: BP 142/71; PULSE 65; RESP 20; TEMP 36.6; O2SAT 96
[2025-02-17 04:00] VITALS: BP 152/73; PULSE 70; RESP 16; TEMP 36.4; O2SAT 97; BMI 32.3
--- NOTE | 2025-02-17 04:12 | PC.NURSE ---
Pt A&Ox4. Pt VSS. Pt is on RA. Pt complained of 8/10 pain during this shift. Receiving 1 dose of IV pain medication and PO pain medication. Pt dressing to rt forearm skin tear was replaced. Pt has had no acute changes noted. Pt medicated per SEP. Pt not voicing any concerns. Pt resting w/ call light in reach. POC ongoing.
[2025-02-17] MEDS: KETOROLAC 30MG/ML VIAL 30 MG IV (05:19)
[2025-02-17 06:11] LABS: Hematocrit 37.8 % (37.0-47.0); Hemoglobin 11.9 g/dL (12.2-16.2); Immature Granulocytes % 0.2 %; Mean Corpuscular HGB Conc 31.5 g/dL (31.8-35.4); Mean Corpuscular Hemoglobin 28.7 pg (27.0-31.2); Mean Corpuscular Volume 91.3 fl (81-99); Nucleated Red Blood Cells % 0 %; Platelet Count 239 K/mm3 (142-424); Red Blood Count 4.14 M/mm3 (4.20-5.40); Red Cell Distribution Width-SD 43.6 fL; White Blood Count 4.3 K/mm3 (4.8-10.8)
[2025-02-17 08:00] VITALS: BP 143/80; PULSE 72; RESP 18; TEMP 36.6; O2SAT 100
[2025-02-17] MEDS: POTASSIUM CHLORIDE 20MEQ TAB 20 MEQ PO (08:01)
[2025-02-17] MEDS: OXYCODONE 5MG W/APAP 325MG TABLET 1 EACH PO (08:01)
[2025-02-17] MEDS: POLYETHYLENE GLYCOL 3350 17 GM PACKET PO (09:31)
[2025-02-17] MEDS: SENNOSIDES 8.6MG/DOCUSATE 50MG TABLET 1 TAB PO (09:31)
[2025-02-17 11:42] VITALS: BMI 32.3
--- NOTE | 2025-02-17 13:30 | P.PN_ITS ---
Subjective *Date: 02/17/25 *Time: 15:04 Interval history: Patient sitting up in the bed, has no complaints this morning. States without movement her pain is minimal. She is looking forward to discharge to [facility]. Medical Exam Vital signs and Labs for Last 24 Hours: Vital Signs Temp Pulse Resp BP Pulse Ox O2 Del Method 02/17/25 13:00 Room Air 02/17/25 11:00 Room Air 02/17/25 08:53 Room Air 02/17/25 08:00 97.8 F 72 18 143/80 H 100 Room Air 02/17/25 08:00 Room Air 02/17/25 06:53 Room Air 02/17/25 05:00 Room Air 02/17/25 04:00 97.6 F 70 16 152/73 H 97 Room Air 02/17/25 03:00 Room Air 02/17/25 01:00 Room Air 02/16/25 23:00 Room Air 02/16/25 21:00 Room Air 02/16/25 19:55 97.8 F 65 20 142/71 H 96 Room Air 02/16/25 19:46 Room Air 02/16/25 18:45 Room Air 02/16/25 17:10 Room Air 02/16/25 16:00 98.2 F 59 L 14 119/68 92 L Room Air 02/16/25 15:10 Room Air Intake and Output 02/16/25 02/17/25 02/17/25 23:59 07:59 15:59 Intake Total 420 / 1590 360 / 840 480 / 840 Output Total 400 / 1600 950 / 950 Balance 20 / -10 -590 / -110 480 / -110 Intake: Intake, Oral Amount 420 / 1590 360 / 840 480 / 840 Output: Output, Urine Amount 400 / 1600 950 / 950 Other: Number of Unmeasured Voids 0 Weight 93.667 kg 93.667 kg Patient Weight 02/17/25 23:59 Weight 93.667 kg Laboratory Results - last 24 hr 02/17/25 05:41: WBC 4.3 L D, RBC 4.14 L, Hgb 11.9 L, Hct 37.8, MCV 91.3, MCH 28.7, MCHC 31.5 L, RDW 13.2, Plt Count 239, MPV 8.9, Neut % (Auto) 56.2, Lymph % (Auto) 30.7, [place] % (Auto) 10.4 H, Eos % (Auto) 2.3, Baso % (Auto) 0.2, Neut # (Auto) 2.4, Lymph # (Auto) 1.3, [place] # (Auto) 0.5, Eos # (Auto) 0.1, Baso # (Auto) 0.0 I & O for Labs for Last 24 Hours: Intake & Output 02/14/25 02/15/25 02/16/25 02/17/25 23:59 23:59 23:59 23:59 Intake Total 660 / 910 1230 / 1590 840 / 840 Output Total 750 / 750 1600 / 1600 950 / 950 Balance -90 / 160 -370 / -10 -110 / -110 Weight 96.071 kg 94.982 kg 93.667 kg Constitutional: Present no acute distress, obese, chronically ill appearing and cooperative Head: Present other (Abrasion above right eyebrow) Eyes: Absent eye pain or eye discharge ENT: Present normal exam Neck: Present normal inspection; Absent tenderness Respiratory: Present CTA bilaterally, able to speak in complete sentences and symmetric chest movement; Absent wheezes or crackles Cardiac: Present Reg Rate and Rhythm; Absent No Murmur GI: Present soft and distention; Absent tenderness Rectal (female): Present deferred (female): Present deferred Extremities: Absent full ROM or edema Skin: Present intact and dry Comment:: Scattered bruising Neuro: Present alert, awake and oriented x 3 Assessment and Plan *Assessment and plan (1) Strain of right iliopsoas muscle: Status: Acute Category: Medical Code(s): S76.811A - Strain of other specified muscles, fascia and tendons at thigh level, right thigh, initial encounter (2) Forehead laceration: Status: Acute Qualifiers: Encounter type: initial encounter Qualified Code(s): S01.81XA - Laceration without foreign body of other part of head, initial encounter Category: Medical Code(s): S01.81XA - Laceration without foreign body of other part of head, initial encounter (3) Ambulatory dysfunction: Status: Acute Category: Medical Code(s): R26.2 - Difficulty in walking, not elsewhere classified (4) Fall: Status: Acute Qualifiers: Encounter type: initial encounter Qualified Code(s): W19.XXXA - Unspecified fall, initial encounter Category: Medical Code(s): W19.XXXA - Unspecified fall, initial encounter (5) Acute pain of right hip: Status: Acute Category: Medical Code(s): M25.551 - Pain in right hip (6) Closed fracture of 2nd metacarpal: Status: Acute Qualifiers: Encounter type: initial encounter Fracture alignment: nondisplaced Laterality: left Metacarpal location: other portion of metacarpal Qualified Code(s): S62.391A - Other fracture of second metacarpal bone, left hand, initial encounter for closed fracture Category: Medical Code(s): S62.308A - Unspecified fracture of other metacarpal bone, initial encounter for closed fracture (7) DDD (degenerative disc disease), lumbar: Status: Chronic Category: Medical Code(s): M51.369 - Other intervertebral disc degeneration, lumbar region without mention of lumbar back pain or lower extremity pain (8) HTN (hypertension): Status: Chronic Qualifiers: Hypertension type: primary hypertension Qualified Code(s): I10 - Essential (primary) hypertension Category: Medical Code(s): I10 - Essential (primary) hypertension Plan Ms. Kennedy is a 64-year-old female who presented to the emergency department after a ground-level fall at home. She reports that she has had issues with walking and gait for at least a month now. She does have a history of multiple falls, and states she uses a walker/cane to ambulate around her home. CT in the emergency department did not reveal any acute fractures in her pelvis/hips but she complains of severe right hip pain. MRI IMPRESSION: High-grade partial tear of the musculotendinous junction of the anterior iliopsoas with extension of a tear into the distal iliopsoas tendon. Patient also was found to have a left nondisplaced second metacarpal fracture. It is currently splinted and patient plans to follow-up with her hand doctor she sees at , Dr. Reyes. PT/OT were consulted and recommending rehab facility due to worsening pain with movement, frequent falls, weakness. Patient currently lives at home with and children. #Ambulation dysfunction #Fall #Difficulty in walking #Strain of right iliopsoas muscle ? Patient had numerous scans in the ED, head, lumbar spine, neck, thoracic spine, pelvis, hand, wrist, femur, hip, pelvis CT's. Acute left second metacarpal nondisplaced fracture noted, otherwise scans unremarkable. ? Patient continued to have worsening pain, only able to ambulate a few steps with walker and PT/OT. MRI yesterday shows IMPRESSION: High-grade partial tear of the musculotendinous junction of the anterior iliopsoas with extension of a tear into the distal iliopsoas tendon. ? Patient originally thought to be able to go home with home health services to improve strength, after reevaluation today PT/OT recommends rehab facility due to patient's inability to ambulate without immense pain. She has been accepted to [facility], continuing to wait on insurance authorization at this time. ? Patient currently receiving oxycodone 5 mg every 4 hours as needed for severe pain. Patient has Dilaudid intrathecal pain pump in place as well. Monitoring for toxicity. ? CBC unremarkable. No anemia, no electrolyte abnormalities, normal kidney function. #Diabetes mellitus: Patient has a history of diabetes mellitus, A1c 5.8%. Patient's blood sugars have all been within normal limits. #Hypertension: Continue carvedilol 3.125 mg p.o. twice daily and furosemide 40 mg daily as needed. #Depression/anxiety: Continue duloxetine 60 mg twice daily and lorazepam 1 mg every 6 hours as needed. Full code VTE?Lovenox Regular diet
--- NOTE | 2025-02-17 15:04 | P.DS_ITS ---
<Statement entered by Hardeep Rivera MD - 02/15/25 16:32> Rounded on patient after nurse practitioner. Personally examined and interviewed patient. Agree with exam findings and care plan as documented. General Admission date:: 02/15/25 Discharge date: 02/16/25 HPI HPI HPI: Ms. Kennedy is a 64-year-old female with a past medical history of Type II DM, Diabetic Neuropathies, OA, Hypertension, CAD, Anxiety and Depression. She presents to [facility] due to a fall in the home at ground level that resulted in a right forehead laceration and pain to the left hand and right hip just prior to presentation. She reports that she was walking in her home carrying a load of laundry when she tripped and fell and hit her head, left hand and right hip. She reports a previous history of Right Hip Repair with hardware, this resulted in immediate pain and the inability to walk, this prompted her visit to the ER. In the ER, she underwent multiple scans of the body. A Left Hand xray showed a non-displaced fracture of the 2nd metacarpal of the hand. CT of the hip showed no acute finding, however the patient was unable to walk and had extreme pain. The patient is admitted with initial impression: Ambulatory Dsyfunction and Fall. Hospital Course Hospital Course Hospital Course: Ms. Kennedy is a 64-year-old female who presented to the emergency department late last night after a ground-level fall at home. She reports that she has had issues with walking and gait for at least a month now. She does have a history of multiple falls, and states she uses a walker/cane to ambulate around her home. CT in the emergency department did not reveal any acute fractures in her pelvis/hips but she complains of severe right hip pain. MRI IMPRESSION: High- grade partial tear of the musculotendinous junction of the anterior iliopsoas with extension of a tear into the distal iliopsoas tendon. Patient also was found to have a left nondisplaced wrist fracture. It is currently splinted, follow-up with Dr. Virk as an outpatient. PT/OT were consulted and recommended home health or outpatient therapy for strength and ambulation. Patient did have a small forehead laceration that did not require intervention. #Ambulation dysfunction #Fall #Difficulty in walking ? Patient had numerous scans in the ED, head, lumbar spine, neck, thoracic spine, pelvis, hand, wrist, femur, hip, pelvis CT's. Acute left wrist nondisplaced fracture noted, otherwise scans unremarkable. ? Patient was able to ambulate with PT/OT and can be discharged when medically stable, home health therapy services after discharge with skilled acute therapy is indicated to improve strength, endurance to activity, transfers, ambulation. Patient will be set up with home health services at discharge. Patient states she has a walker at home for ambulation. ? Patient will be discharged home on pain medication for right hip pain. Follow-up with orthopedics for left wrist fracture. ? Patient does have continuous intrathecal pain pump and tramadol 50 mg at bedtime. #Diabetes mellitus: Continue Ozempic weekly #Hypertension: Continue carvedilol 3.125 mg p.o. twice daily and furosemide 40 mg daily as needed #Depression/anxiety: Continue duloxetine 60 mg twice daily and lorazepam 1 mg every 6 hours as needed Total time spent on discharge 32 minutes in counseling, documentation, chart review, and direct care with patient. Exam Data for Last 24 hours Vital signs and Labs for Last 24 Hours: Temp Pulse Resp BP Pulse Ox O2 Del Method O2 Flow Rate 98.2 F 79 20 141/75 H 95 Room Air 2 02/15/25 07:50 02/15/25 07:50 02/15/25 07:50 02/15/25 07:50 02/15/25 08:00 02/15/25 11:00 02/15/25 03:48 Laboratory Results - last 24 hr 02/15/25 01:20: WBC 6.0, RBC 3.98 L, Hgb 11.6 L, Hct 36.2 L, MCV 91.0, MCH 29.1, MCHC 32.0, RDW 13.1, Plt Count 298, MPV 8.7, Neut % (Auto) 63.3, Lymph % (Auto) 24.7, [place] % (Auto) 9.4 H, Eos % (Auto) 2.2, Baso % (Auto) 0.2, Neut # (Auto) 3.8, Lymph # (Auto) 1.5, [place] # (Auto) 0.6, Eos # (Auto) 0.1, Baso # (Auto) 0.0, PT 10.8, INR 0.97, Sodium 137, Potassium 3.9, Chloride 101, Carbon Dioxide 32 H, Anion Gap 7.9, BUN 13, Creatinine 0.70, Estimated Creat Clear 85, Estimated GFR 84, Est GFR ( Amer) 102, Glucose 93, Calcium 9.6, Total Bilirubin 0.2, AST 34, ALT 19, Alkaline Phosphatase 95, Total Protein 6.9, Albumin 4.2, Globulin 2.7, Albumin/Globulin Ratio 1.6, HCV Ab RYAN w/Rflx PCR Qn Negative, HIV Ag/Ab Combo Qual Negative 02/15/25 04:48: POC Glucose 115 H 02/15/25 10:53: POC Glucose 94 I & O for Last 24 hours: Intake & Output 02/12/25 02/13/25 02/14/25 02/15/25 23:59 23:59 23:59 23:59 Intake Total 360 / 360 Output Total 0 / 0 Balance 360 / 360 Weight 96.071 kg Constitutional Constitutional: mild distress, obese, chronically ill appearing and cooperative *Routine HEENT Exam Head: Present normocephalic and abrasion (Right eyebrow) Eye: Present PERRL ENT: Present mucous membranes moist *Routine Neck Exam Neck: Present supple and full ROM *Routine Respiratory Exam Respiratory: Present CTA bilaterally, able to speak in complete sentences and symmetric chest movement; Absent wheezes or crackles *Routine Cardiovascular Exam Cardiovascular: Present RRR, Normal S1 and Normal S2 *Routine Abdominal Exam Abdominal: Present soft and normoactive bowel sounds; Absent tenderness *Routine Extremities Exam Extremities: Present pulses intact (Bilateral pedal pulses) Comments: Right hip/groin pain with movement Left wrist fracture, cast in place *Routine Skin Exam Skin: Present dry; Absent rash Comments: Scattered bruising *Routine Neurological Exam Neurological: Present alert, oriented X3, vision grossly intact and hearing grossly intact Routine Psychiatric Exam Psychiatric: Present normal affect Results Data Completed and Pending Labs on day of discharge: Labs from last 24 hours 02/15/25 02/15/25 02/15/25 10:53 04:48 01:20 WBC 6.0 RBC 3.98 L Hgb 11.6 L Hct 36.2 L MCV 91.0 MCH 29.1 MCHC 32.0 RDW 13.1 Plt Count 298 MPV 8.7 Neut % (Auto) 63.3 Lymph % (Auto) 24.7 [place]he % (Auto) 9.4 H Eos % (Auto) 2.2 Baso % (Auto) 0.2 Neut # (Auto) 3.8 Lymph # (Auto) 1.5 [place]he # (Auto) 0.6 Eos # (Auto) 0.1 Baso # (Auto) 0.0 PT 10.8 INR 0.97 Sodium 137 Potassium 3.9 Chloride 101 Carbon Dioxide 32 H Anion Gap 7.9 BUN 13 Creatinine 0.70 Estimated Creat Clear 85 Estimated GFR 84 Est GFR ( Amer) 102 Glucose 93 POC Glucose 94 115 H Calcium 9.6 Total Bilirubin 0.2 AST 34 ALT 19 Alkaline Phosphatase 95 Total Protein 6.9 Albumin 4.2 Globulin 2.7 Albumin/Globulin Ratio 1.6 HCV Ab RYAN w/Rflx PCR Qn Negative HIV Ag/Ab Combo Qual Negative DS: Diagnosis Discharge Diagnosis (1) Ambulatory dysfunction: Status: Acute Code(s): R26.2 - Difficulty in walking, not elsewhere classified (2) Fall: Status: Acute Code(s): W19.XXXA - Unspecified fall, initial encounter Qualifiers: Encounter type: initial encounter Qualified Code(s): W19.XXXA - Unspecified fall, initial encounter (3) Forehead laceration: Status: Acute Code(s): S01.81XA - Laceration without foreign body of other part of head, initial encounter Qualifiers: Encounter type: initial encounter Qualified Code(s): S01.81XA - Laceration without foreign body of other part of head, initial encounter (4) Left hand fracture: Status: Acute Code(s): S62.92XA - Unspecified fracture of left wrist and hand, initial encounter for closed fracture Qualifiers: Encounter type: initial encounter Fracture type: closed Qualified Code(s): S62.92XA - Unspecified fracture of left wrist and hand, initial encounter for closed fracture (5) HTN (hypertension): Status: Chronic Code(s): I10 - Essential (primary) hypertension Qualifiers: Hypertension type: primary hypertension Qualified Code(s): I10 - Essential (primary) hypertension (6) CAD (coronary artery disease): Status: Chronic Code(s): I25.10 - Atherosclerotic heart disease of [place] coronary artery without angina pectoris Qualifiers: Associated angina: without angina Coronary Disease-Associated Artery/Lesion type: [place] artery [place] vs. transplanted heart: [place] heart Qualified Code(s): I25.10 - Atherosclerotic heart disease of [place] coronary artery without angina pectoris (7) Strain of right iliopsoas muscle: Status: Acute Code(s): S76.811A - Strain of other specified muscles, fascia and tendons at thigh level, right thigh, initial encounter (8) Other specified injury of muscle, fascia and tendon of right hip, initial encounter: Status: Acute Code(s): S76.091A - Other specified injury of muscle, fascia and tendon of right hip, initial encounter Meds Home Medications and Allergies Home Medications ?Medication ?Instructions ?Recorded ?Confirmed ?Type ascorbic acid (vitamin C) 500 mg 500 mg PO DAILY Suppl ement 07/16/17 02/15/25 History tablet cholecalciferol (vitamin D3) 10 400 unit PO DAILY Supp lement 07/16/17 02/15/25 History mcg (400 unit) capsule multivitamin 1 tab PO DAILY suppleemnt 02/15/25 History atogepant 60 mg tablet (Qulipta) 60 mg PO DAILY #30 ta bs 12/05/23 02/15/25 Rx cyanocobalamin (vitamin B-12) 1,000 mcg IM MONTHLY 02/0302/15/25 History 1,000 mcg/mL injection solution syringe with needle 3 mL 25 gauge #1 ea 12/19/2302/15 History x 1 (BD Luer-Filomena Syringe) furosemide 40 mg tablet 40 mg PO DAILY PRN edema #30 tabs 03/18/24 02/15/25 Rx rimegepant 75 mg disintegrating 75 mg PO DAILY PRN Gera robbie 04/05/24 02/15/25 History tablet (Nurtec ODT) Headache tramadol 50 mg tablet 50 mg PO HS #30 tabs 10/08/2 5 02/15/25 Rx lorazepam 1 mg tablet 1 mg PO Q6H PRN anxiety #120 tabs 01/06/25 02/15/25 Rx semaglutide 2 mg/dose (8 mg/3 mL) 2 mg (0.75 mL) SQ WE EKLY #3 mL 01/18/25 02/15/25 Rx subcutaneous pen injector (Ozempic) zolpidem 10 mg tablet 10 mg PO HS PRN Sleep #30 ta bs 02/01/25 02/15/25 Rx carvedilol 3.125 mg tablet 3.125 mg PO BID 02/15/25 History duloxetine 60 mg capsule,delayed 60 mg PO BID 02/15/25 02/15/25 History release New Prescriptions to Start Prescriptions: Allergies Allergy/AdvReac Type Severity Reaction Status Date / Time cephalexin (From Keflex) Allergy Severe SERUM Verified 01/18/25 10:04 SICKNESS ; JOINTS LOCKED morphine Allergy Intermediate I-HIVES Verified 01/18/25 10:04 Penicillins Allergy Intermediate I-HIVES Verified 01/18/25 10:04 adhesive tape AdvReac Mild Unknown Verified 01/18/25 10:04 allergy reaction Discharge Plan Disposition Patient Disposition: Home Health Service Condition: Fair Discharge Order Discharge Orders: Discharge Order (Routine); Ordered 02/15/25 Ordered By: Hardeep Rivera Follow up Plan Follow up with: Omar De La Torre MD [Primary Care Provider, Medical] - 02/23/25 2:00 pm Referral Note: Bayron Villagomez DO [Staff Physician, Orthopedics] - 02/22/25 9:00 am Referral Note: Left wrist fracture, right iliopsoas tear Prescriptions/Medication Reconciliation: Continued cyanocobalamin (vitamin B-12) 1,000 mcg/mL solution 1,000 mcg IM MONTHLY Patient Comments: INJECT 1ML INTRAMUSCULARLY EVERY DAY FOR 7 DAYS THEN EVERY WEEK FOR 4 WEEKS THEN MONTHLY (DME) BD Luer-Filomena Syringe 3 mL 25 gauge x 1 syringe See Rx Instructions .ROUTE .MEDSUPPLY Qty: 1 Patient Comments: USE TO inject B12 Rx Instructions: As directed Nurtec ODT 75 mg tablet,disintegrating 75 mg PO DAILY PRN (Reason: Migraine Headache) Patient Comments: TAKE ONE TABLET UNDER THE TONGUE NEEDED FOR MIGRAINE DIRECTED (MAX OF 1 PER DAY) cholecalciferol (vitamin D3) 400 unit capsule 400 unit PO DAILY ascorbic acid (vitamin C) 500 mg tablet 500 mg PO DAILY furosemide 40 mg tablet 40 mg PO DAILY PRN (Reason: edema) Qty: 30 2RF Ozempic 2 mg/dose (8 mg/3 mL) pen injector 2 mg SQ WEEKLY Qty: 3 2RF Qulipta 60 mg tablet 60 mg PO DAILY Qty: 30 2RF lorazepam 1 mg tablet 1 mg PO Q6H PRN (Reason: anxiety) Qty: 120 1RF zolpidem 10 mg tablet 10 mg PO HS PRN (Reason: Sleep) Qty: 30 0RF tramadol 50 mg tablet 50 mg PO HS Qty: 30 2RF carvedilol 3.125 mg tablet 3.125 mg PO BID duloxetine 60 mg capsule,delayed release(DR/EC) 60 mg PO BID Rx Instructions: TAKE ONE CAPSULE BY MOUTH TWICE DAILY multivitamin Tablet 1 tab PO DAILY Problem Reconciliation Problems Reviewed?: Yes Patient Discharge Instructions Patient Instructions: DI for a Hand Fracture, DI for Chronic Pain -- Adult, How to Prevent Falls Print Language: Yi Providers Primary Care Provider: Omar De La Torre Admit Provider: Hardeep Rivera Attending Provider: Hardeep Rivera
[2025-02-17] MEDS: MULTIVITAMIN TABLET 1 EACH PO (16:35)
== END 2025-02-17 16:55 ==
LOC: ER 03:27 → 2ND 03:29
PROVIDERS: Admitting Provider Internal Medicine Adolescent Medicine; Emergency Provider Emergency Medicine; PCP Internal Medicine; Visit Provider Internal Medicine Adolescent Medicine
DX: R26.2 Difficulty in walking, not elsewhere classified (principal); S01.81XA Laceration without foreign body of other part of head, initial encounter; I25.10 Atherosclerotic heart disease of native coronary artery without angina pectoris; S76.811A Strain of other specified muscles, fascia and tendons at thigh level, right thigh, initial encounter; S62.391A Other fracture of second metacarpal bone, left hand, initial encounter for closed fracture; E11.40 Type 2 diabetes mellitus with diabetic neuropathy, unspecified; I11.9 Hypertensive heart disease without heart failure; F41.9 Anxiety disorder, unspecified; F32.A Depression, unspecified; E66.9 Obesity, unspecified; S76.091A Other specified injury of muscle, fascia and tendon of right hip, initial encounter; M15.0 Primary generalized (osteo)arthritis; M15.2 Bouchard's nodes (with arthropathy); M51.379 Other intervertebral disc degeneration, lumbosacral region without mention of lumbar back pain or lower extremity pain; K21.9 Gastro-esophageal reflux disease without esophagitis; E78.5 Hyperlipidemia, unspecified; Z88.1 Allergy status to other antibiotic agents; Z23 Encounter for immunization; Z88.5 Allergy status to narcotic agent; Z91.048 Other nonmedicinal substance allergy status; Z88.0 Allergy status to penicillin; Z79.899 Other long term (current) drug therapy; Z79.84 Long term (current) use of oral hypoglycemic drugs; Z79.891 Long term (current) use of opiate analgesic; Z68.32 Body mass index [BMI] 32.0-32.9, adult; W19.XXXA Unspecified fall, initial encounter
CPT/HCPCS: 36415; 70450; 70496; 70498; 71275; 72125; 72128; 72131; 72192; 72195; 73100; 73130; 73502; 73552; 74019; 74174; 80048; 80053; 82962; 85025; 85610; 86803; 87389; 90715; 96374; 96375; 96376; 97163; 97166; 97530; 99285; G0378; J1171; J1650; J1885; J2405; J3010; Q9967

== ENCOUNTER 2025-02-22 09:07 | Day surgery (SDC) | payer BC, SELFPAY ==
[2025-02-22 09:27] VITALS: BP 130/77; PULSE 83; RESP 16; O2SAT 94; BMI 31.3
[2025-02-22 09:36] VITALS: BP 137/71; PULSE 80; RESP 18; O2SAT 97
[2025-02-22 10:05] VITALS: BP 124/79; PULSE 66; RESP 16; O2SAT 99
--- NOTE | 2025-02-22 10:12 | EXP.PAIN.PRO ---
Procedure Date: 02/22/25 Time: 09:30 Anesthesiologist:: Nima Torrez CRNA Complications:: None Pre-procedure Diagnosis:: Degenerative disc lumbar spine multilevels. Lumbar radiculopathy. Lumbar spondylosis. Multilevel lumbar facet arthropathy. Lumbar postlaminectomy syndrome. Chronic pain syndrome. Post-procedure Diagnosis:: Same. Indications for Procedure:: Patient is a very pleasant 64-year-old female who comes our clinic today for intrathecal pain pump interrogation and refill. Patient currently being managed with hydromorphone 25 mg/mL at a rate of 7.7 to 2 mg/day. Also bupivacaine 20 mg/mL at a rate of 6.178 mg/day. Patient doing very well with her current settings. She is not reporting side effects or complications. She not requesting changes. Procedure Details:: Details of the procedure explained to the patient. The patient taken procedure room placed in sitting position. The area over the pump was cleaned using chlorhexidine as a cleansing solution. The pump was interrogated the pump was accessed with ease using a 22-gauge inch and a half needle. 3 mL of solution was withdrawn and discarded appropriate. The pump was then filled with 20 cc of a solution containing hydromorphone 25 mg/mL and bupivacaine 20 mg/mL. No change in rate. Patient tolerated procedure without difficulty. There are no complications. Plan and Disposition:: Patient was discharged without incident.
== END 2025-02-22 10:06 | disposition home or self-care (01) ==
PROVIDERS: PCP Internal Medicine; Visit Provider Nurse Anesthetist, Certified Registered
DX: Z45.1 Encounter for adjustment and management of infusion pump (principal); M51.16 Intervertebral disc disorders with radiculopathy, lumbar region; M47.26 Other spondylosis with radiculopathy, lumbar region; M96.1 Postlaminectomy syndrome, not elsewhere classified; G89.4 Chronic pain syndrome; F41.9 Anxiety disorder, unspecified; I25.10 Atherosclerotic heart disease of native coronary artery without angina pectoris; E11.9 Type 2 diabetes mellitus without complications; E78.5 Hyperlipidemia, unspecified; I11.9 Hypertensive heart disease without heart failure; Z88.1 Allergy status to other antibiotic agents; Z88.0 Allergy status to penicillin; Z91.048 Other nonmedicinal substance allergy status; Z88.5 Allergy status to narcotic agent; Z79.891 Long term (current) use of opiate analgesic; Z79.85 Long-term (current) use of injectable non-insulin antidiabetic drugs
CPT/HCPCS: 95991

== ENCOUNTER 2025-03-03 09:26 | Outpatient (CLI) | payer BC, SELFPAY ==
--- NOTE | 2025-03-03 09:26 | XR_ITS ---
FINAL REPORT CLINICAL HISTORY: left hand fx FINDINGS: LEFT HAND An overlying cast obscures bony detail. Three views demonstrate no definite acute fracture or dislocation. Sideplate and screws are seen securing the distal radius to the third metacarpal. There has been resection of the distal ulna and proximal carpal row. There is an orthopedic screw in the first MCP joint. Prominent hypertrophic changes of osteoarthritis are seen at the first IP joint. IMPRESSION: Extensive postoperative changes without definite acute bony abnormality identified. Reviewed, Interpreted and Dictated by Houston Elizabeth MD Transcribed by Leticia Schuster Authenticated and [facility]
== END 2025-03-03 23:59 | disposition home or self-care (01) ==
LOC: RAD 09:26
PROVIDERS: Visit Provider Physician Assistant Surgical
DX: S62.92XA Unspecified fracture of left hand, initial encounter for closed fracture (principal); Z98.890 Other specified postprocedural states
CPT/HCPCS: 73130

== ENCOUNTER 2025-03-17 12:56 | Outpatient (CLI) | payer MEDICARE, SELFPAY ==
--- NOTE | 2025-03-17 12:57 | XR_ITS ---
FINAL REPORT CLINICAL HISTORY: left hand fx COMPARISON: 03/03/2025 FINDINGS: LEFT HAND In the interval since the prior examination of 03/03/2025 the cast has been removed. There is a sideplate and screws fusing the distal radius and the third metacarpal again noted, with resection of the proximal carpal row and the distal ulna. There is a screw present in the first MCP joint. There are moderate hypertrophic changes of osteoarthritis of the fourth PIP joint. No significant changes noted since the prior examination. IMPRESSION: Postoperative changes are again noted, with cast removal in the interval since the prior exam. No new bony abnormalities are identified. Reviewed, Interpreted and Dictated by Houston Elizabeth MD Transcribed by Dary Leavitt Authenticated and [facility]
--- OUTSIDE RECORDS SUMMARY | 2025-03-17 13:00 | XMS_ITS | Clinical Summary ---
Author Organization [facility] Address [address] [place] [address] Phone Care Team Providers Care Textile Technical Officer Name Role Phone Unavailable Unavailable Conditions or Problems No information available. Medications No information available. Medications Administered No information available. Allergies, Adverse Reactions, Alerts No information available. Results No information available. Plan of Care No information available. Procedures No information available. Vital Signs No information available. Immunizations No information available. Advance Directives No information available.
--- OUTSIDE RECORDS SUMMARY | 2025-03-17 13:01 | XMS_ITS | Clinical Summary ---
Author Organization [facility] ([place], [place], [place], [place]) Address [address] [place] [address] Care Team Providers Care Negative Assembler Name Role Phone Omar De La Torre MD Primary Care Provider [phone] Allergies Active Allergy Reactions Criticality Noted Date [...] Date Wild rded Speak language other than Amharic at home Not on file 08/01/2023 Want [...] Care Team (Late st Contact Info) Description 03/24/2025 11:30 AM EDT Office Visit [facility] Neurology - [address] [place] [address] Jose Ortega MD [address] [place], [place] [id number] Health Maintenance Due Date Last Done Comments [...] series) 2020 COVID-19 VACCINE (3 - season) 03/14/202503/2021, 07/11/2020 Influenza Vaccine (#1) 2025 Tobacco Cessation Counseling and Screening (12+) 10/25/2025 10/25/2024 Medical Devices Implanted Type Area Siding Mechanic Device Identifier Shelf Expiration Date Model / Serial / Lot Bone Vivigen Formable Bl-1600-001 - [id number] Implanted:Qty : 1 on 10/30/2022 by Duane Friedman MD at [facility] IMPLANTS N/A: Spine Cervical LIFENET:LIFENET TRANSPLANT SRV 10/11/2023 BL-1600-0 / [id number] / Cage Eit Cif H 5mm 8d S [id number] - [id number] Implanted:Qty : 1 on 10/30/2022 by Duane Friedman MD at [facility] IMPLANTS N/A: Spine Cervical J &J:DEPUY:DEPUY SPINE 01/10/2026 [id number] / / [id number] Cage Eit Cif H 5mm 8d S [id number] - [id number] Implanted:Qty : 1 on 10/30/2022 by Duane Friedman MD at [facility] IMPLANTS N/A: Spine Cervical J &J:DEPUY:DEPUY SPINE 07/13/2023 [id number] / / [id number] Cage Eit Cif H 5mm 8d S [id number] - [id number] Implanted:Qty : 1 on 10/30/2022 by Duane Friedman MD at [facility] IMPLANTS N/A: Spine Cervical J &J:DEPUY:DEPUY SPINE 01/10/2026 [id number] / / [id number] Plt Ant Skyln Hybrd Lvl3 45mm 03-045 - [id number] Implanted:Qty : 1 on 10/30/2022 by Duane Friedman MD at [facility] IMPLANTS N/A: Neck J &J:DEPUY:DEPUY SPINE 03-0 45 / 03-0 45 / Scr Skyln Vari Sd 18mm 50-018 - [id number] Implanted:Qty : 8 on 10/30/2022 by Duane Friedman MD at [facility] IMPLANTS N/A: Neck J &J:DEPUY:DEPUY SPINE 50-0 18 / 50-0 18 / Insurance BLUE CROSS/BLUE SHIELD Advance Directives For more information, please contact: [phone] Documents on File Type Date Recorded Patient Rug Dyer Expl anation Advance Directives and Livin g Will 10/30/2022 6:04 AM * Full Code (Latest Code Status on File) Date Activated Date Inactivated Comments 10/30/2022 10:48 AM 11/04/2022 1:55 PM Care Teams Negative Assembler Relationship Specialty Start Date End Date Omar De La Torre MD [address] [place] [id number] PCP - General General Internal Medicine 10/16/22
--- OUTSIDE RECORDS SUMMARY | 2025-03-17 13:01 | XMS_ITS | Encounter Summary ---
Author Organization [facility] Address [address] [place] [address] Care Team Providers Care Data Recovery Planner Name Role Phone Omar De La Torre MD Primary Care Provider [phone] Encounter Details Date Type Department Care Team (Late st Contact Info) Description 09/26/2021 Lab Requisition [facility] [address] [place] [address] João Reyes MD [address] [address] Benign neoplasm of other specified sites Social [...] Exam (09/26/2021) Case Report Surgical Pathology Case: [id number] Authorizing Provider: João Reyes MD Collected: 09/26/2021 Ordering Location: [facility] Lab Received: 09/26/2021 1239 Pathologist: Komal Negron MD Specimen: Wrist, Right, Right wrist neuroma 09/27/2021 11:40 AM EDT [facility] Final Diagnosis A. SOFT TISSUE MASS, RIGHT WRIST, EXCISION: - NEUROMA. 09/27/2021 11:40 AM EDT [facility] at 1140 EDT Clinical Information Right wrist hardware failure, right wrist neuroma 09/27/2021 11:40 AM EDT [facility]ALTH[facility] Gross Description A. RIGHT WRIST NEUROMA The specimen is received in formalin labeled right wrist neuroma , and consists of a 2.5 x 0.6 x 0.5 cm pink-harding fibrous tissue fragment. Entirely submitted in cassette A1. Kimberly Montgomery 09/27/2021 11:40 AM EDT [facility] Tissue Structure of right wrist region / Unknown 09/26/2021 09/26/2021 12:39 PM EDT João Reyes MD LAB PATHOLOGY ORDERABLES Alisha boone Result [facility] [address] [place] [address] documented in this encounter Visit Diagnoses Diagnosis Benign neoplasm of other specified sites documented in this encounter Additional Health Concerns Assessment Noted Time A fall risk assessment has been complete d for the patient 09/11/2021 10:48 AM EST documented as of this encounter Care Teams Data Recovery Planner Relationship Specialty Start Date End Date Omar De La Torre MD [address] [place] [address] [address] [place] [address] PCP - General 11/24/20 documented as of this encounter
--- OUTSIDE RECORDS SUMMARY | 2025-03-17 13:01 | XMS_ITS | Clinical Summary ---
Author Organization [facility] Address [address] [place] [address] Care Team Providers Care Stator Winder Name Role Phone Mason Cleaning MD Primary Care Provider [phone] Allergies Active Allergy Reactions Criticality Noted Date [...] Health Maintenance Due Date Last Done Comments DXA SCAN 1960 Pneumococcal Vaccine 50+ (1 of 2 - PCV) 1979 TDAP/TD VACCINES (1 - Tdap) 1979 MAMMOGRAM 2000 COLOGUARD 2005 COLON CANCER SCREENING 5 YEAR SIGMOIDOSCOPY 2005 COLONOSCOPY [address] CANCER SCREENING [address] COLONOGRAPHY 2005 FECAL OCCULT BLOOD TEST 2005 FIT Testing (1 year) 2005 ZOSTER VACCINE (1 of 2) 2010 ANNUAL PHYSICAL 11/25/2016 HEPATITIS C SCREENING 11/25/2016 COVID-19 Vaccine ( season) 2025 INFLUENZA VACCINE 04/13/2025 Insurance [employer] [employer] [employer] Care Teams Stator Winder Relationship Specialty Start Date End Date Mason Cleaning MD [address] [facility] [address] ATTN: [place] [address] PCP - General Emergency Medicine 09/20/16
--- OUTSIDE RECORDS SUMMARY | 2025-03-17 13:01 | XMS_ITS | Encounter Summary ---
Author Organization [facility] Address [address] [place] [address] Care Team Providers Care Management Liaison Name Role Phone Omar De La Torre MD Primary Care Provider [phone] Encounter Details Date Type Department Care Team (Late st Contact Info) Description 01/11/2025 Telephone [facility] [address] [place] [address] João Reyes MD [address] [address] Social History Tobacco Use Types [...] documented as of this encounter Care Teams Management Liaison Relationship Specialty Start Date End Date Omar De La Torre MD [address] [place] [address] [address] [place] [address] PCP - General 11/24/20 documented as of this encounter
--- OUTSIDE RECORDS SUMMARY | 2025-03-17 13:01 | XMS_ITS | Encounter Summary ---
Author Organization Healthcare Address [address] [place] [address] Care Team Providers Care Wirer Name Role Phone Omar De La Torre MD Primary Care Provider [phone] Reason for Visit * Reason Onset Date Comments Med Refill 05/07/2021 Encounter Details Date Type Department Care Team (Late st Contact Info) Description 05/07/2021 Refill [facility] [address] [place] [address] João Reyes MD [address] [address] Social History Tobacco Use Types [...] optimal time of day to reach caller: [phone] Note: Please do not reply to this message. Follow-up communication and further actions as a result of this message need to be communicated with the patient directly, if the patient is not active onMyChart. If the patient is active on MyChart, they will receive notification of the communication/outcome via [employer]. documented in this encounter Plan of Treatment Not on file documented as of this encounter Visit Diagnoses Not on filedocumented in this encounter Additional Health Concerns Assessment Noted Time A fall risk assessment has been complete d for the patient 04/03/2021 11:28 AM EDT documented as of this encounter Care Teams Wirer Relationship Specialty Start Date End Date Omar De La Torre MD [address] [place] [address] [address] [place] [address] PCP - General 11/24/20 documented as of this encounter
--- OUTSIDE RECORDS SUMMARY | 2025-03-17 13:01 | XMS_ITS | Clinical Summary ---
Author Organization [facility] Address [address] [place] [address] Care Team Providers Care Pullman Car Clerk Name Role Phone Omar De La Torre MD Primary Care Provider [phone] Allergies Active Allergy Reactions Criticality Noted Date [...] FINISH ALL MEDICINE -- Active HYDROcodone-acetam inophen ([place]) 7.5-325 MG tablet TAKE ONE TABLET BY [...] (11/13/2021): Added automatically from request for surgery [id number] Depression with anxiety 02/13/2021 Generalized OA 02/13/2021 HTN (hypertension) 02/13/2021 Insomnia 02/13/2021 Obesity 02/13/2021 Hematoma of left hip 02/13/2021 Acetabular labrum tear, left, sequela 01/18/2021 Lumbar radiculopathy 05/01/2020 Hip pain 04/18/2020 Iron deficiency anemia 09/29/2016 Status post bariatric surgery 09/29/2016 Spondylolisthesis 03/13/2015 Physical deconditioning Encounters Date Type Department Care Team Description 01/11/2025 Telephone [place] [address] [place] [address] João Reyes MD from Last 3 Months Family History Medical [...] Health Maintenance Due Date Last Done Comments [facility]-Bone Density Scan 1960 [facility]-Infant/Child/Adol SDOH Screenings 1960 [facility]- SDOH Screenings 1978 [facility]-Adult SDOH Screenings 1978 CT Colonography 2005 Colonoscopy 2005 FIT-DNA 2005 FIT 2005 FOBT 2005 Sigmoidoscopy 2005 [facility]-Colorectal Cancer Screening 2005 [facility]-Breast Cancer Screening 2010 [facility]-Pneumococcal Vaccine: 50+ Years (1 of 1 - PCV) 2010 [facility]-Zoster Vaccines (1 of 2) 2010 [facility]-RSV Vaccine: 60+ Years or (1 - Risk 60-74 years 1-dose series) 2020 [id number] Vaccine (3 - Pfizer risk series) 09/19/2020 08/22/2020, 07/11/2020 [facility]-Depression Screening 12/01/2024 12/02/2023 [facility]-Influenza Vaccine (#1) 2025 [facility]-DTaP,Tdap,and Td Vaccines (2 - Td or Tdap) 02/15/2035 02/15/2025 [facility]-Hepatitis C Screening Completed 02/12/2021 [facility]-Diabetes: Hemoglobin [...] Johanne Grimes Medical Devices Implanted Type Area Manufacturing Engineer Paint Device Identifier Shelf Expiration Date Model / Serial / Lot Pain Pump Pain Pump N/A: Back Procedures Procedure Name Priority Date/Time Associated Diagnosis Comments HEMOGLOBIN A1C Routine 02/14/2021 3:25 AM EDT HEPATITIS C ANTIBODY - ED W/REFLEX TO HCV QUANT PCR STAT 02/12/2021 8:20 PM EDT from Last [...] Adults <6.0% Children and Adolescents <7.5% Source: [place] Diabetes [employer]. Standards of medical care in diabetes,2017. Diabetes Care.2017:40 (suppl 1):S1-S135. HbA1c assay performed by an ion-exchange chromatography method that is certified traceable to the DCCT. Liana FELICIANO LAB BLOOD ORDERABLES Final R esult [facility] [address] [place] [address] * [place] Hepatitis C Antibody (02/12/2021 8:20 PM EDT) Hepatitis C Antibody Negative Negative 02/12/2021 10:17 PM EDT HEALTHCARE LAB Blood Venous blood specimen / Unknown Venipuncture / Unknown 02/12/2021 8:20 PM EDT 02/12/2021 8:34 PM EDT us Joanne Umaña MD LAB BLOOD ORDERABLES Final Res ult [facility] [address] [place] [address] from Last 3 Months or Most Recently Relevant to Health Maintenance Insurance [employer] Advance Directives * Full Code (Latest Code Status on File) Date Activated Date Inactivated Comments 02/13/2021 4:57 AM 02/21/2021 4:22 PM Question Answer Comments Patient has decision-making capacity? Yes * Full Code Date Activated Date Inactivated Comments 01/18/2021 4:57 PM 02/05/2021 4:59 PM Question Answer Comments Patient has decision-making capacity? Yes Care Teams Pullman Car Clerk Relationship Specialty Start Date End Date Omar De La Torre MD [address] [facility] [address] [place] [address] PCP - General 11/24/20
--- OUTSIDE RECORDS SUMMARY | 2025-03-17 13:01 | XMS_ITS | Referral Summary ---
Author Organization [facility] ([place], [place], [place], [place]) Address [address] [place] [address] Care Team Providers Care Video Surveillance Technician Name Role Phone Omar De La Torre MD Primary Care Provider [phone] Allergies Active Allergy Reactions Criticality Noted Date [...] Date Wild rded Speak language other than Macedonian at home Not on file 08/01/2023 Want [...] Description 03/24/2025 11:30 AM EDT Office Visit [facility] Neurology - [address] [place] [address] Jose Ortega MD [address] [place] [address] Medical Devices Implanted Type Area End Worker Device Identifier Shelf Expiration Date Model / Serial / Lot Bone Vivigen Formable Bl-1600-001 - [id number] Implanted:Qty : 1 on 10/30/2022 by Duane Friedman MD at [facility] IMPLANTS N/A: Spine Cervical LIFENET:LIFENET TRANSPLANT SRV 10/11/2023 BL-1600-0 / [id number] / Cage Eit Cif H 5mm 8d S [id number] - [id number] Implanted:Qty : 1 on 10/30/2022 by Duane Friedman MD at [facility] IMPLANTS N/A: Spine Cervical J &J:DEPUY:DEPUY SPINE 01/10/2026 [id number] / / [id number] Cage Eit Cif H 5mm 8d S [id number] - [id number] Implanted:Qty : 1 on 10/30/2022 by Duane Friedman MD at [facility] IMPLANTS N/A: Spine Cervical J &J:DEPUY:DEPUY SPINE 07/13/2023 [id number] / / [id number] Cage Eit Cif H 5mm 8d S [id number] - [id number] Implanted:Qty : 1 on 10/30/2022 by Duane Friedman MD at [facility] IMPLANTS N/A: Spine Cervical J &J:DEPUY:DEPUY SPINE 01/10/2026 [id number] / / [id number] Plt Ant Skyln Hybrd Lvl3 45mm 045 - [id number] Implanted:Qty : 1 on 10/30/2022 by Duane Friedman MD at [facility] IMPLANTS N/A: Neck J &J:DEPUY:DEPUY SPINE 03-0 45 / 03-0 45 / Scr Skyln Vari Sd 18mm 50-018 - [id number] Implanted:Qty : 8 on 10/30/2022 by Duane Friedman MD at [facility] IMPLANTS N/A: Neck J &J:DEPUY:DEPUY SPINE 50-0 18 / -0 18 / Insurance BLUE CROSS/BLUE SHIELD Advance Directives For more information, please contact: [phone] Documents on File Type Date Recorded Patient Air Brush Decorator Expl anation Advance Directives and Livin g Will 10/30/2022 6:04 AM * Full Code (Latest Code Status on File) Date Activated Date Inactivated Comments 10/30/2022 10:48 AM 11/04/2022 1:55 PM Care Teams Video Surveillance Technician Relationship Specialty Start Date End Date Omar De La Torre MD [address] [place] [address] PCP - General General Internal Medicine 10/16/22
--- OUTSIDE RECORDS SUMMARY | 2025-03-17 13:01 | XMS_ITS | Encounter Summary ---
Author Organization Healthcare Address [address] [place] [address] Care Team Providers Care Property Worker Name Role Phone Omar De La Torre MD Primary Care Provider [phone] Reason for Visit * Reason Onset Date Comments HCN - Rx Refill Request 10/05/2021 Encounter Details Date Type Department Care Team (Late st Contact Info) Description 10/05/2021 Telephone [facility] [address] [place] [address] João Reyes MD [address] [address] HCN - Rx Refill Request [...] Preferred Pharmacy & Location[facility] [place] [facility] Days of medication remaining (if under 3 days please sandra as urgent): 0 Best contact number and optimal time of day to reach caller: [phone] Additional comments/information from caller: Note: Please do not reply to this message. Follow-up communication and further actions as a result of this message need to be communicated with the patient directly, if the patient is not active onMyChart. If the patient is active on MyChart, they will receive notification of the communication/outcome via [employer]. documented in this encounter Plan of Treatment Not on file documented as of this encounter Visit Diagnoses Not on filedocumented in this encounter Additional Health Concerns Assessment Noted Time A fall risk assessment has been complete d for the patient 09/11/2021 10:48 AM EST documented as of this encounter Care Teams Property Worker Relationship Specialty Start Date End Date Omar De La Torre MD [address] [place] [address] [address] [place] [address] PCP - General 11/24/20 documented as of this encounter
== END 2025-03-17 23:59 | disposition home or self-care (01) ==
LOC: RAD 12:57
PROVIDERS: Visit Provider Physician Assistant Surgical
DX: S62.339A Displaced fracture of neck of unspecified metacarpal bone, initial encounter for closed fracture (principal); Z98.890 Other specified postprocedural states
CPT/HCPCS: 73130

== ENCOUNTER 2025-04-01 10:15 | Outpatient (CLI) | payer MEDICARE, SELFPAY ==
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
--- OUTSIDE RECORDS SUMMARY | 2025-04-01 10:21 | XMS_ITS | Encounter Summary ---
Author Organization [facility] Address [address] [place] [address] Care Team Providers Care Housekeeper Manager Name Role Phone Omar De La Torre MD Primary Care Provider [phone] Encounter Details Date Type Department Care Team (Late st Contact Info) Description 01/11/2025 Telephone [facility] [address] [place] [address] João Reyes MD [address] [address] Social History Tobacco Use Types [...] Care Team (Late st Contact Info) Description 04/26/2025 10:40 AM EDT [facility] [address] [place] [address] João Reyes MD [address] [address] documented as of this encounter Goals Goal [...] documented as of this encounter Care Teams Housekeeper Manager Relationship Specialty Start Date End Date Omar De La Torre MD [facility] [address] [place] [address] PCP - General 11/24/20 documented as of this encounter
--- OUTSIDE RECORDS SUMMARY | 2025-04-01 10:21 | XMS_ITS | Clinical Summary ---
Author Organization [facility] Address [address] [place] [address] Care Team Providers Care Histology Tech Name Role Phone Omar De La Torre MD Primary Care Provider [phone] Allergies Active Allergy Reactions Criticality Noted Date [...] FINISH ALL MEDICINE -- Active HYDROcodone-acetam inophen ([place]) 7.5-325 MG tablet TAKE ONE TABLET BY [...] (11/13/2021): Added automatically from request for surgery [id number] Depression with anxiety 02/13/2021 Generalized OA 02/13/2021 HTN (hypertension) 02/13/2021 Insomnia 02/13/2021 Obesity 02/13/2021 Hematoma of left hip 02/13/2021 Acetabular labrum tear, left, sequela 01/18/2021 Lumbar radiculopathy 05/01/2020 Hip pain 04/18/2020 Iron deficiency anemia 09/29/2016 Status post bariatric surgery 09/29/2016 Spondylolisthesis 03/13/2015 Physical deconditioning Encounters Date Type Department Care Team Description 01/11/2025 Telephone [facility] [employer] [address] [place] [address] João Reyes MD from Last [...] Description 04/26/2025 10:40 AM EDT Office Visit [facility] [address] [place] [address] João Reyes MD [address] [place] [address] Health Maintenance Due Date Last Done Comments [facility]-Bone Density Scan 1960 [facility]-/Child/Adol SDOH Screenings 1960 [facility]- SDOH Screenings 1978 [facility]-Adult SDOH Screenings 1978 CT Colonography 2005 Colonoscopy 2005 FIT-DNA 2005 FIT 2005 FOBT 2005 Sigmoidoscopy 2005 [facility]-Colorectal Cancer Screening 2005 [facility]-Breast Cancer Screening 2010 [facility]-Pneumococcal Vaccine: 50+ Years (1 of 1 - PCV) 2010 [facility]-Zoster Vaccines (1 of 2) 2010 [facility]-RSV Vaccine: 60+ Years or (1 - Risk 60-74 years 1-dose series) 2020 [id number] Vaccine (3 - Pfizer risk series) 09/19/2020 [...] Johanne Grimes Medical Devices Implanted Type Area Warehouse Worker Device Identifier Shelf Expiration Date Model [...] Adults <6.0% Children and Adolescents <7.5% Source: [place] [employer]. Standards of medical care in diabetes,2017. Diabetes Care.2017:40 (suppl 1):S1-S135. HbA1c assay performed by an ion-exchange chromatography method that is certified traceable to the DCCT. us Liana FELICIANO LAB BLOOD ORDERABLES Final R esult Performing Organization Address City/[facility]/ZIP Co de Phone Number [facility] [address] [place] [address] * [place] Hepatitis C Antibody (02/12/2021 8:20 PM EDT) [facility] Hepatitis C Antibody Negative Negative 02/12/2021 10:17 PM EDT [facility]ALTHC[facility] Blood Venous blood specimen / Unknown Venipuncture / Unknown 02/12/2021 8:20 PM EDT 02/12/2021 8:34 PM EDT Joanne Umaña MD LAB BLOOD ORDERABLES Final Res ult Performing Organization Address City/[facility] Co de Phone Number [facility] [address] [place] [address] from Last 3 Months or Most Recently Relevant to Health Maintenance Insurance [facility] Advance Directives * Full Code (Latest Code Status on File) Date Activated Date Inactivated Comments 02/13/2021 4:57 AM 02/21/2021 4:22 PM Question Answer Comments Patient has decision-making capacity? Yes * Full Code Date Activated Date Inactivated Comments 01/18/2021 4:57 PM 02/05/2021 4:59 PM Question Answer Comments Patient has decision-making capacity? Yes Care Teams Histology Tech Relationship Specialty Start Date End Date Omar De La Torre MD [facility] [address] [place] [address] PCP - General 11/24/20
--- OUTSIDE RECORDS SUMMARY | 2025-04-01 10:21 | XMS_ITS | Clinical Summary ---
Author Organization [employer] ([place], [place], [place], [place]) Address [address] [place] [address] Care Team Providers Care Electric Cell Tender Name Role Phone Omar De La Torre MD Primary Care Provider [phone] Allergies Active Allergy Reactions Criticality Noted Date [...] Date Wild rded Speak language other than Bahamian at home Not on file 08/01/2023 Want [...] Description 04/28/2025 10:30 AM EDT Office Visit [facility] Neurology - [address] [place] [address] Jose Ortega MD [address] [place], [place] [address] Health Maintenance Due Date Last Done Comments CT Colonography 1960 Colonoscopy 1960 Colorectal Cancer Screening 1960 DXA SCAN 1960 FOBT/FIT 1960 Fit-DNA (Cologuard) 1960 Sigmoidoscopy 1960 HIV Screening 1975 Hepatitis C Screening 1978 DTAP/TDAP/TD VACCINES (1 - Tdap) 1979 Pneumococcal 50+ years (1 of 2 - PCV) 1979 Pap Smear 1981 Breast Cancer Screening 2000 Lipid Panel 2005 Shingles Vaccine (Zoster) (1 of 2) 2010 Respiratory Syncytial Virus (RSV) Adult or (1 - Risk 60-74 years 1-dose series) 2020 Falls Risk Screening 07/14/2024 COVID-19 VACCINE (3 - 2024- season) 03/14/202503/2021, 07/11/2020 Influenza Vaccine (#1) 2025 Tobacco Cessation Counseling and Screening (12+) 10/25/2025 10/25/2024 Medical Devices Implanted Type Area Director Revenue Device Identifier Shelf Expiration Date Model / Serial / Lot Bone Vivigen Formable Bl-1600-001 - [id number] Implanted:Qty : 1 on 10/30/2022 by Duane Friedman MD at [facility] IMPLANTS N/A: Spine Cervical LIFENET:LIFENET TRANSPLANT SRV 10/11/2023 BL-1600-0 01 / [id number] / Cage Eit Cif H 5mm 8d S [id number] - [id number] Implanted:Qty : 1 on 10/30/2022 by Duane Friedman MD at [facility] IMPLANTS N/A: Spine Cervical J &J:DEPUY:DEPUY SPINE 01/10/2026 [id number] / / [id number] Cage Eit Cif H 5mm 8d S [id number] - [id number] Implanted:Qty : 1 on 10/30/2022 by Duane Friedman MD at [facility] IMPLANTS N/A: Spine Cervical J &J:DEPUY:DEPUY SPINE 07/13/2023 [id number] / / [id number] Cage Eit Cif H 5mm 8d S [id number] - [id number] Implanted:Qty : 1 on 10/30/2022 by Duane Friedman MD at [facility] IMPLANTS N/A: Spine Cervical J &J:DEPUY:DEPUY SPINE 01/10/2026 [id number] / / [id number] Plt Ant Skyln Hybrd Lvl3 45mm 1867-03-045 - [id number] Implanted:Qty : 1 on 10/30/2022 by Duane Friedman MD at [facility] IMPLANTS N/A: Neck J &J:DEPUY:DEPUY SPINE 8-03-0 45 / 1867-03-0 45 / Scr Skyln Vari Sd 18mm 1867-50-018 - [id number] Implanted:Qty : 8 on 10/30/2022 by Duane Friedman MD at [facility] IMPLANTS N/A: Neck J &J:DEPUY:DEPUY SPINE 850-0 18 / 50-0 18 / Insurance BLUE CROSS/BLUE SHIELD Advance Directives For more information, please contact: [phone] Documents on File Type Date Recorded Patient Facilities Supervisor Expl anation Advance Directives and Livin g Will 10/30/2022 6:04 AM * Full Code (Latest Code Status on File) Date Activated Date Inactivated Comments 10/30/2022 10:48 AM 11/04/2022 1:55 PM Care Teams Electric Cell Tender Relationship Specialty Start Date End Date Omar De La Torre MD [address] [place] [id number] PCP - General General Internal Medicine 10/16/22
--- OUTSIDE RECORDS SUMMARY | 2025-04-01 10:21 | XMS_ITS | Encounter Summary ---
Author Organization Healthcare Address [address] [place] [address] Care Team Providers Care Rug Setter Axminster Name Role Phone Omar De La Torre MD Primary Care Provider [phone] Reason for Visit * Reason Onset Date Comments Med Refill 05/07/2021 Encounter Details Date Type Department Care Team (Late st Contact Info) Description 05/07/2021 Refill [facility] [address] [place] [address] João Reyes MD [address] [address] Social History Tobacco Use Types [...] optimal time of day to reach caller: [phone] Note: Please do not reply to this message. Follow-up communication and further actions as a result of this message need to be communicated with the patient directly, if the patient is not active onMyChart. If the patient is active on MyChart, they will receive notification of the communication/outcome via [email or web address]. documented in this encounter Plan of Treatment Upcoming Encounters Date Type Department Care Team (Late st Contact Info) Description 04/26/2025 10:40 AM EDT Office Visit [facility] [address] [place] [address] João Reyes MD [address] [address] documented as of this encounter Visit Diagnoses Not on filedocumented in this encounter Additional Health Concerns Assessment Noted Time A fall risk assessment has been complete d for the patient 04/03/2021 11:28 AM EDT documented as of this encounter Care Teams Rug Setter Axminster Relationship Specialty Start Date End Date Omar De La Torre MD [address] [facility] [address] [place] [address] PCP - General 11/24/20 documented as of this encounter
--- OUTSIDE RECORDS SUMMARY | 2025-04-01 10:21 | XMS_ITS | Clinical Summary ---
Author Organization [facility] Address [address] [place] [address] Care Team Providers Care Dental Hygiene Professor Name Role Phone Mason Cleaning MD Primary Care Provider [phone] Allergies Active Allergy Reactions Criticality Noted Date [...] ANNUAL PHYSICAL 11/25/2016 HEPATITIS C SCREENING 11/25/2016 INFLUENZA VACCINE 02/11/2025 COVID-19 Vaccine ( season) 2025 Insurance [employer] Care Teams Dental Hygiene Professor Relationship Specialty Start Date End Date Mason Cleaning MD [address] [facility] [address] ATTN: [place] [address] PCP - General Emergency Medicine 09/20/16
--- OUTSIDE RECORDS SUMMARY | 2025-04-01 10:21 | XMS_ITS | Encounter Summary ---
Author Organization Healthcare Address [address] [place] [address] Care Team Providers Care Power Shovel Mechanic Name Role Phone Omar De La Torre MD Primary Care Provider [phone] Reason for Visit * Reason Onset Date Comments HCN - Rx Refill Request 10/05/2021 Encounter Details Date Type Department Care Team (Late st Contact Info) Description 10/05/2021 Telephone [facility] [address] [place] [address] João Reyes MD [address] [address] HCN - Rx Refill Request [...] Preferred Pharmacy & Location: [facility] Days of medication remaining (if under 3 days please sandra as urgent): 0 Best contact number and optimal time of day to reach caller: [phone] Additional comments/information from caller: Note: Please do not reply to this message. Follow-up communication and further actions as a result of this message need to be communicated with the patient directly, if the patient is not active onMyChart. If the patient is active on MyChart, they will receive notification of the communication/outcome via [employer]. documented in this encounter Plan of Treatment Upcoming Encounters Date Type Department Care Team (Late st Contact Info) Description 04/26/2025 10:40 AM EDT Office Visit [facility] [address] [place] [address] João Reyes MD [address] [address] documented as of this encounter Visit Diagnoses Not on filedocumented in this encounter Additional Health Concerns Assessment Noted Time A fall risk assessment has been complete d for the patient 09/11/2021 10:48 AM EST documented as of this encounter Care Teams Power Shovel Mechanic Relationship Specialty Start Date End Date Omar De La Torre MD [address] [facility] [address] [place] [address] PCP - General 11/24/20 documented as of this encounter
--- OUTSIDE RECORDS SUMMARY | 2025-04-01 10:21 | XMS_ITS | Encounter Summary ---
Author Organization Healthcare Address [address] [place] [address] Care Team Providers Care Resistance Machine Welder Setter Name Role Phone Omar De La Torre MD Primary Care Provider [phone] Encounter Details Date Type Department Care Team (Late st Contact Info) Description 09/26/2021 Lab Requisition [facility] [address] [place] [address] João Reyes MD [address] [address] Benign neoplasm of other specified sites Social [...] Description 04/26/2025 10:40 AM EDT Office Visit [facility] [address] [place] [address] João Reyes MD [address] [address] documented as of this encounter Procedures Procedure Name Priority Date/Time Associated Diagnosis Comments SURGICAL PATHOLOGY EXAM Routine 09/26/2021 Benign neoplasm of other specified sites documented in this encounter Results * Surgical Pathology Exam (09/26/2021) Case Report Surgical Pathology Case: [id number] Authorizing Provider: João Reyes MD Collected: 09/26/2021 Ordering Location: [facility] Lab Received: 09/26/2021 1239 Pathologist: Komal Negron [...] ORDERABLES Alisha boone Result Performing Organization Address City/State/[facility] Co de Phone Number [facility]ALTHCARE LAB [address] [place] [address] documented in this encounter Visit Diagnoses Diagnosis Benign neoplasm of other specified sites documented in this encounter Additional Health Concerns Assessment Noted Time A fall risk assessment has been complete d for the patient 09/11/2021 10:48 AM EST documented as of this encounter Care Teams Resistance Machine Welder Setter Relationship Specialty Start Date End Date Omar De La Torre MD [address] [place] [address] [address] [place] [address] PCP - General 11/24/20 documented as of this encounter
--- OUTSIDE RECORDS SUMMARY | 2025-04-01 10:21 | XMS_ITS | Referral Summary ---
Author Organization [employer] ([place], [place], [place], [place]) Address [address] [place] [address] Care Team Providers Care Before School Name Role Phone Omar De La Torre MD Primary Care Provider [phone] Allergies Active Allergy Reactions Criticality Noted Date [...] Date Wild rded Speak language other than Kazakh at home Not on file 08/01/2023 Want [...] Description 04/28/2025 10:30 AM EDT Office Visit [facility] Neurology - [address] [place] [address] Jose Ortega MD [address] [place] [address] Medical Devices Implanted Type Area Plant Physiology Teacher Device Identifier Shelf Expiration Date Model / Serial / Lot Bone Vivigen Formable Bl-1600-001 - [id number] Implanted:Qty : 1 on 10/30/2022 by Duane Friedman MD at [facility] IMPLANTS N/A: Spine Cervical LIFENET:LIFENET TRANSPLANT SRV 10/11/2023 BL-1600-0 / [id number] / Cage Eit Cif H 5mm 8d S [id number] - [id number] Implanted:Qty : 1 on 10/30/2022 by Duane Friedman MD at [facility] IMPLANTS N/A: Spine Cervical J &J:DEPUY:DEPUY SPINE 01/10/2026 [id number] / / [id number] Cage Eit Cif H 5mm 8d S [id number] - [id number] Implanted:Qty : 1 on 10/30/2022 by Duane Friedman MD at [facility] IMPLANTS N/A: Spine Cervical J &J:DEPUY:DEPUY SPINE 07/13/2023 [id number] / / [id number] Cage Eit Cif H 5mm 8d S [id number] - [id number] Implanted:Qty : 1 on 10/30/2022 by Duane Friedman MD at [facility] IMPLANTS N/A: Spine Cervical J &J:DEPUY:DEPUY SPINE 01/10/2026 [id number] / / [id number] Plt Ant Skyln Hybrd Lvl3 45mm 045 - [id number] Implanted:Qty : 1 on 10/30/2022 by Duane Friedman MD at [facility] IMPLANTS N/A: Neck J &J:DEPUY:DEPUY SPINE 03-0 45 / 03-0 45 / Scr Skyln Vari Sd 18mm 50-018 - [id number] Implanted:Qty : 8 on 10/30/2022 by Duane Friedman MD at [facility] IMPLANTS N/A: Neck J &J:DEPUY:DEPUY SPINE 50-0 18 / -0 18 / Insurance BLUE CROSS/BLUE SHIELD Advance Directives For more information, please contact: [phone] Documents on File Type Date Recorded Patient Wig Comber Expl anation Advance Directives and Livin g Will 10/30/2022 6:04 AM * Full Code (Latest Code Status on File) Date Activated Date Inactivated Comments 10/30/2022 10:48 AM 11/04/2022 1:55 PM Care Teams Before School Relationship Specialty Start Date End Date Omar De La Torre MD [address] [place] [address] PCP - General General Internal Medicine 10/16/22
[2025-04-12 11:53] LABS: Amphetamines IA Negative ng/mL (Cutoff:50); Barbituates IA Negative ug/mL (Cutoff:0.1); Benzodiazepines IA Negative ng/mL (Cutoff:20); Cocaine & Metabolites IA Negative ng/mL (Cutoff:25); Fentanyl, IA Negative ng/mL (Cutoff:1.0); Meperidine, IA Negative ng/mL (Cutoff:100); Methadone IA Negative ng/mL (Cutoff:25); Opiates IA ++POSITIVE++ ng/mL (Cutoff:5); Oxycodone IA Negative ng/mL (Cutoff:5); Phencyclidine IA Negative ng/mL (Cutoff:8); Propoxyphene IA Negative ng/mL (Cutoff:50); THC (marijauna) metabolite IA Negative ng/mL (Cutoff:5); Tramadol, IA Negative ng/mL (Cutoff:50)
== END 2025-04-01 23:59 | disposition home or self-care (01) ==
LOC: LAB 10:19
PROVIDERS: PCP Internal Medicine; Visit Provider Nurse Practitioner Family
DX: Z79.891 Long term (current) use of opiate analgesic (principal)
CPT/HCPCS: 80307

== ENCOUNTER 2025-04-11 14:58 | Outpatient (CLI) | payer MEDICARE, SELFPAY ==
--- OUTSIDE RECORDS SUMMARY | 2025-04-11 15:00 | XMS_ITS | Clinical Summary ---
Author Organization [facility] Address [address] [facility] [address] [place] [address] Phone Care Team Providers Care Operations Support Representative Name Role Phone Unavailable Unavailable Conditions or Problems No information available. Medications No information available. Medications Administered No information available. Allergies, Adverse Reactions, Alerts No information available. Results No information available. Plan of Care No information available. Procedures No information available. Vital Signs No information available. Immunizations No information available. Advance Directives No information available.
--- NOTE | 2025-04-11 15:01 | XR_ITS ---
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 There is no acute bony abnormality. The joint spaces appear normal. There is a moderate plantar spur. There is moderate soft tissue edema over the dorsum of the foot measuring 1.7 cm. IMPRESSION: Moderate soft tissue edema without acute bony abnormality. Reviewed, Interpreted and Dictated by Houston Elizabeth MD Transcribed by Mikaela Schmidt Authenticated and [facility]
--- OUTSIDE RECORDS SUMMARY | 2025-04-11 15:01 | XMS_ITS | Clinical Summary ---
Author Organization [facility] Address [address] [place] [address] Care Team Providers Care Adjunct Professor Of U.[place]. History Name Role Phone Mason Cleaning MD Primary Care Provider [phone] Allergies Active Allergy Reactions Criticality Noted Date [...] 02/11/2025 COVID-19 Vaccine ( season) 2025 Insurance [employer] Care Teams Adjunct Professor Of U.S. History Relationship Specialty Start Date End Date Mason Cleaning MD [address] [facility] [address] ATTN: FE CARDOZO [address] PCP - General Emergency Medicine 09/20/16
--- OUTSIDE RECORDS SUMMARY | 2025-04-11 15:01 | XMS_ITS | Encounter Summary ---
Author Organization [facility] Address [address] [place] [address] Care Team Providers Care Wire Stripper Name Role Phone Omar De La Torre MD Primary Care Provider [phone] Encounter Details Date Type Department Care Team (Late st Contact Info) Description 01/11/2025 Telephone [facility] [address] [place] [address] João Reyes MD [address] [address] Social History Tobacco Use Types [...] Description 04/26/2025 10:40 AM EDT Office Visit [facility] [address] [place] [address] João Reyes MD [address] [place] [address] [address] documented as of this encounter Goals Goal [...] documented as of this encounter Care Teams Wire Stripper Relationship Specialty Start Date End Date Omar De La Torre MD [facility] [address] [place] [address] PCP - General 11/24/20 documented as of this encounter
--- OUTSIDE RECORDS SUMMARY | 2025-04-11 15:01 | XMS_ITS | Encounter Summary ---
Author Organization Healthcare Address [address] [place] [address] Care Team Providers Care Wound Nurse Name Role Phone Omar De La Torre MD Primary Care Provider [phone] Reason for Visit * Reason Onset Date Comments Med Refill 05/07/2021 Encounter Details Date Type Department Care Team (Late st Contact Info) Description 05/07/2021 Refill [facility] [address] [place] [address] João Reyes MD [address] [address] Social History Tobacco Use Types [...] optimal time of day to reach caller: [phone] Note: Please do not reply to this message. Follow-up communication and further actions as a result of this message need to be communicated with the patient directly, if the patient is not active onMyChart. If the patient is active on MyChart, they will receive notification of the communication/outcome via [employer]. documented in this encounter Plan of Treatment Upcoming Encounters Date Type Department Care Team (Late st Contact Info) Description 04/26/2025 10:40 AM EDT Office Visit [facility] [address] [place] [address] João Reyes MD [address] [address] documented as of this encounter Visit Diagnoses Not on filedocumented in this encounter Additional Health Concerns Assessment Noted Time A fall risk assessment has been complete d for the patient 04/03/2021 11:28 AM EDT documented as of this encounter Care Teams Wound Nurse Relationship Specialty Start Date End Date Omar De La Torre MD [address] [facility] [address] [place] [address] PCP - General 11/24/20 documented as of this encounter
--- OUTSIDE RECORDS SUMMARY | 2025-04-11 15:01 | XMS_ITS | Encounter Summary ---
Author Organization Healthcare Address [address] [place] [address] Care Team Providers Care Vp Genetic Name Role Phone Omar De La Torre MD Primary Care Provider [phone] Reason for Visit * Reason Onset Date Comments HCN - Rx Refill Request 10/05/2021 Encounter Details Date Type Department Care Team (Late st Contact Info) Description 10/05/2021 Telephone [facility] [address] [place] [address] João Reyes MD [address] [address] HCN - Rx Refill Request [...] Preferred Pharmacy & Location[facility] Days of medication remaining (if under 3 days please sandra as urgent): 0 Best contact number and optimal time of day to reach caller: [phone] Additional comments/information from caller: Note: Please do not reply to this message. Follow-up communication and further actions as a result of this message need to be communicated with the patient directly, if the patient is not active onMyChart. If the patient is active on MyChart, they will receive notification of the communication/outcome via [employer] documented in this encounter Plan of Treatment Upcoming Encounters Date Type Department Care Team (Late st Contact Info) Description 04/26/2025 10:40 AM EDT Office Visit [facility] [address] [place] [address] João Reyes MD [address] [address] documented as of this encounter Visit Diagnoses Not on filedocumented in this encounter Additional Health Concerns Assessment Noted Time A fall risk assessment has been complete d for the patient 09/11/2021 10:48 AM EST documented as of this encounter Care Teams Vp Genetic Relationship Specialty Start Date End Date Omar De La Torre MD [address] [facility] [address] [place] [address] PCP - General 11/24/20 documented as of this encounter
--- OUTSIDE RECORDS SUMMARY | 2025-04-11 15:01 | XMS_ITS | Clinical Summary ---
Author Organization [facility] Address [address] [place] [address] Care Team Providers Care Global Sales Director Name Role Phone Omar De La Torre MD Primary Care Provider [phone] Allergies Active Allergy Reactions Criticality Noted Date [...] FINISH ALL MEDICINE -- Active HYDROcodone-acetam inophen ([place]) 7.5-325 MG tablet TAKE ONE TABLET BY [...] (11/13/2021): Added automatically from request for surgery [id number] Depression with anxiety 02/13/2021 Generalized OA 02/13/2021 HTN (hypertension) 02/13/2021 Obesity 02/13/2021 Hematoma of left hip 02/13/2021 Acetabular labrum tear, left, sequela 01/18/2021 Lumbar radiculopathy 05/01/2020 Hip pain 04/18/2020 Iron deficiency anemia 09/29/2016 Status post bariatric surgery 09/29/2016 Spondylolisthesis 03/13/2015 Resolved Problems Problem Noted Date Diagnosed Date Resolved Date Insomnia 02/13/2021 04/03/2025 Physical deconditioning 03/15 Encounters Date Type Department Care Team Description 01/11/2025 Telephone [place] [address] [place] [address] João Reyes MD from Last [...] Office Visit [facility] [address] [place] [address] João Reyes MD [address] [place] [address] Health Maintenance Due Date Last Done [...] - Risk 60-74 years 1-dose series) 2020 [id number]-70 Vaccine (3 - Pfizer risk series) 09/19/2020 [...] Johanne Grimes Medical Devices Implanted Type Area Button Tufter Device Identifier Shelf Expiration Date Model / [...] Adults <6.0% Children and Adolescents <7.5% Source: [place] [employer]. Standards of medical care in diabetes,2017. Diabetes Care.2017:40 (suppl 1):S1-S135. HbA1c assay performed by an ion-exchange chromatography method that is certified traceable to the DCCT. us Liana FELICIANO LAB BLOOD ORDERABLES Final R esult Performing Organization Address City/[facility]/ZIP Co de Phone Number HEALTHCARE LAB [address] [place] [address] * [place] Hepatitis C Antibody (02/12/2021 8:20 PM EDT) [facility] Hepatitis C Antibody Negative Negative 02/12/2021 10:17 PM EDT [facility] Blood Venous blood specimen / Unknown Venipuncture / Unknown 02/12/2021 8:20 PM EDT 02/12/2021 8:34 PM EDT us Joanne Umaña MD LAB BLOOD ORDERABLES Final Res ult Performing Organization Address City/[facility] Co de Phone Number HEALTHCARE LAB [address] [place] [address] from Last 3 Months or Most Recently Relevant to Health Maintenance Advance Directives * Full Code (Latest Code Status on File) Date Activated Date Inactivated Comments 02/13/2021 4:57 AM 02/21/2021 4:22 PM Question Answer Comments Patient has decision-making capacity? Yes * Full Code Date Activated Date Inactivated Comments 01/18/2021 4:57 PM 02/05/2021 4:59 PM Question Answer Comments Patient has decision-making capacity? Yes Care Teams Global Sales Director Relationship Specialty Start Date End Date Omar De La Torre MD [address] [place] [address] [address] [place] [address] PCP - General 11/24/20
--- OUTSIDE RECORDS SUMMARY | 2025-04-11 15:01 | XMS_ITS | Encounter Summary ---
Author Organization Healthcare Address [address] [place] [address] Care Team Providers Care Graining Press Operator Name Role Phone Omar De La Torre MD Primary Care Provider [phone] Encounter Details Date Type Department Care Team (Late st Contact Info) Description 09/26/2021 Lab Requisition [facility] [address] [place] [address] João Reyes MD [address] [address] Benign neoplasm of other specified sites Social [...] AM EDT Office Visit [facility] [address] [place] [address] João Reyes MD [address] [address] documented as of this encounter Procedures Procedure Name Priority Date/Time Associated Diagnosis Comments SURGICAL PATHOLOGY EXAM Routine 09/26/2021 Benign neoplasm of other specified sites documented in this encounter Results * Surgical Pathology Exam (09/26/2021) Case Report Surgical Pathology Case: [id number] Authorizing Provider: João Reyes MD Collected: 09/26/2021 Ordering Location: [facility] Lab Received: 09/26/2021 1239 Pathologist: [...] ORDERABLES Alisha boone Result Performing Organization Address City/State/[facility] Co de Phone Number HEALTHCARE LAB [address] [place] [address] documented in this encounter Visit Diagnoses Diagnosis Benign neoplasm of other specified sites documented in this encounter Additional Health Concerns Assessment Noted Time A fall risk assessment has been complete d for the patient 09/11/2021 10:48 AM EST documented as of this encounter Care Teams Graining Press Operator Relationship Specialty Start Date End Date Omar De La Torre MD [address] [place] [address] [address] [place] [address] PCP - General 11/24/20 documented as of this encounter
--- OUTSIDE RECORDS SUMMARY | 2025-05-29 20:00 | XMS_ITS | Clinical Summary ---
Author Organization Unknown Care Team Providers Care Electronic Industrial Controls Mechanic Name Role Phone LUCAS RUEDA, THOMAS Unavailable Unavailable RAMSEY RN, CRUZ Unavailable Unavailable VICTORIA PT, PLACIDO Unavailable Unavailable GUS CYCLE REPAIRER, DONAL Unavailable Unavailable VELASQUEZ OT, ISABELLA Unavailable Unavailable Payers Payer Name Policy Type Policy Number Effective Date Expira tion Date [facility].HHAHRLY.MA2.C.NOAUTH [id number] MEDICARE.[place].PDGM [id number] Problems Condition Name Condition Details Condition Category [...] kg/m2 Height 2025-04-01 12:07:32.000 67 [in_us] Pulse 2025-04-08 11:12:00.000 74 /min Pulse 2025-04-05 13:05:00.000 85 /min Pulse 2025-04-05 10:39:00.000 84 /min Pulse 2025-04-01 12:26:00.000 76 /min O2 Saturation (%) 2025-04-05 13:05:00.000 96 % O2 Saturation (%) 2025-04-05 10:39:00.000 95 % O2 Saturation (%) 2025-04-01 12:26:00.000 94 % Respirations 2025-04-08 11:12:00.000 18 /min Respirations 2025-04-05 13:05:00.000 18 /min Respirations 2025-04-05 10:39:00.000 18 /min Respirations 2025-04-01 12:26:00.000 16 /min Weight (lbs) 2025-04-01 12:07:37.000 210 [lb_av] Systolic Blood Pressure 2025-04-08 11:12:00.000 122 mm [Hg] Systolic Blood Pressure 2025-04-05 13:05:00.000 130 mm [Hg] Systolic Blood Pressure 2025-04-05 10:39:00.000 120 mm [Hg] Systolic Blood Pressure 2025-04-01 12:26:00.000 118 mm [Hg] Diastolic Blood Pressure 2025-04-08 11:12:00.000 [...] CONSULTING PHYSICIANS. RN TO OBSERVE AND ASSESS, STORE TEAM MEMBER/SHIPPING ASSOCIATE TO OBSERVE FOR RISK FOR FALLS AND INSTRUCT IN FALL PREVENTION, HOME SAFETY, MEDICATION MANAGEMENT, INFECTION PREVENTION, AND NUTRITION MANAGEMENT. RN/STORE TEAM MEMBER/SHIPPING ASSOCIATE NURSE MAY PERFORM O2 SATURATION LEVEL ON ADMISSION AND PRN, FOR RN TO ASSESS/STORE TEAM MEMBER TO OBSERVE PATIENT, WITH NOTIFICATION TO THE PHYSICIAN IF SATURATION IS 90% IN THE ABSENCE OF MORE SPECIFIC PARAMETERS FROM THE PHYSICIAN. AGENCY MAY PERFORM A RESUMPTION OF CARE VISIT FOLLOWING ANY HOSPITAL ADMISSION. RN/STORE TEAM MEMBER/SHIPPING ASSOCIATE TO MONITOR CO-MORBID CONDITIONS LISTED ON THE PLAN OF CARE AND ANY NEW CONDITIONS THAT PRESENT THEMSELVES DURING THIS EPISODE TO IDENTIFY CHANGES AND INTERVENE TO MINIMIZE COMPLICATIONS. [code = RN TO OBSERVE, ASSESS, EVALUATE, AND DEVELOP AN INDIVIDUALIZED PLAN OF CARE. AGENCY MAY ACCEPT ORDERS FROM CONSULTING PHYSICIANS. RN TO OBSERVE AND ASSESS, STORE TEAM MEMBER/SHIPPING ASSOCIATE TO OBSERVE FOR RISK FOR FALLS AND INSTRUCT IN FALL PREVENTION, HOME SAFETY, MEDICATION MANAGEMENT, INFECTION PREVENTION, AND NUTRITION MANAGEMENT. RN/STORE TEAM MEMBER/SHIPPING ASSOCIATE NURSE MAY PERFORM O2 SATURATION LEVEL ON ADMISSION AND PRN, FOR RN TO ASSESS/STORE TEAM MEMBER TO OBSERVE PATIENT, WITH NOTIFICATION TO THE PHYSICIAN IF SATURATION IS 90% IN THE ABSENCE OF MORE SPECIFIC PARAMETERS FROM THE PHYSICIAN. AGENCY MAY PERFORM A RESUMPTION OF CARE VISIT FOLLOWING ANY HOSPITAL ADMISSION. RN/STORE TEAM MEMBER/SHIPPING ASSOCIATE TO MONITOR CO-MORBID CONDITIONS LISTED ON THE PLAN OF CARE AND ANY NEW CONDITIONS THAT PRESENT THEMSELVES DURING THIS EPISODE TO IDENTIFY CHANGES AND INTERVENE TO MINIMIZE COMPLICATIONS.] Future Scheduled Test MEDICATION MANAGEMENT; RN/STORE TEAM MEMBER/SHIPPING ASSOCIATE TO REVIEW MEDICATIONS FOR INTERACTIONS, EFFECTIVENESS OF DRUG THERAPY, AND SIGNS/SYMPTOMS OF ADVERSE REACTIONS. MAY INSTRUCT AND REINFORCE MEDICATION TEACHING RELATED TO THE USE OF MEDICATIONS, DOSAGE, FREQUENCY, PURPOSE, SIDE EFFECTS, AND TO REPORT COMPLICATIONS. [code = MEDICATION MANAGEMENT; RN/STORE TEAM MEMBER/SHIPPING ASSOCIATE TO REVIEW MEDICATIONS FOR INTERACTIONS, EFFECTIVENESS OF DRUG THERAPY, AND SIGNS/SYMPTOMS OF ADVERSE REACTIONS. MAY INSTRUCT AND REINFORCE MEDICATION TEACHING RELATED TO THE USE OF MEDICATIONS, DOSAGE, FREQUENCY, PURPOSE, SIDE EFFECTS, AND TO REPORT COMPLICATIONS.] Future Scheduled Test CARDIOVASC ULAR SYSTEM; RN TO ASSESS/TEACH, STORE TEAM MEMBER/SHIPPING ASSOCIATE TO OBSERVE/TEACH RELATED TO ALTERED CARDIOVASCULAR STATUS TO MINIMIZE COMPLICATIONS AND REDUCE HOSPITALIZATION. [code = CARDIOVASCULAR SYSTEM; RN TO ASSESS/TEACH, STORE TEAM MEMBER/SHIPPING ASSOCIATE TO OBSERVE/TEACH RELATED TO ALTERED CARDIOVASCULAR STATUS TO MINIMIZE COMPLICATIONS AND REDUCE HOSPITALIZATION.] Future Scheduled Test HYPERTENSI ON MANAGEMENT; RN TO ASSESS AND TEACH, STORE TEAM MEMBER/SHIPPING ASSOCIATE TO OBSERVE AND TEACH WARNING SIGNS AND SYMPTOMS TO AVOID HOSPITALIZATION. [code = HYPERTENSION MANAGEMENT; RN TO ASSESS AND TEACH, STORE TEAM MEMBER/SHIPPING ASSOCIATE TO OBSERVE AND TEACH WARNING SIGNS AND SYMPTOMS TO AVOID HOSPITALIZATION.] Future Scheduled Test SKIN INTEG RITY RN TO ASSESS AND TEACH, STORE TEAM MEMBER/SHIPPING ASSOCIATE TO OBSERVE AND TEACH INTEGUMENTARY STATUS TO IDENTIFY CHANGES AND INTERVENE TO MINIMIZE COMPLICATIONS. PROVIDE SKILLED TEACHING OF GENERAL WOUND AND SKIN CARE AND PREVENTION RELATED TO POTENTIAL FOR OR ACTUAL ALTERED SKIN INTEGRITY LEFT WRIST [code = SKIN INTEGRITY RN TO ASSESS AND TEACH, STORE TEAM MEMBER/SHIPPING ASSOCIATE TO OBSERVE AND TEACH INTEGUMENTARY STATUS TO IDENTIFY CHANGES AND INTERVENE TO MINIMIZE COMPLICATIONS. PROVIDE SKILLED TEACHING OF GENERAL WOUND AND SKIN CARE AND PREVENTION RELATED TO POTENTIAL FOR OR ACTUAL ALTERED SKIN INTEGRITY LEFT WRIST] Future Scheduled Test PAIN MANAG EMENT; RN TO ASSESS AND TEACH, SHIPPING ASSOCIATE/STORE TEAM MEMBER TO OBSERVE AND TEACH AND PROVIDE EDUCATION ON PAIN MANAGEMENT TECHNIQUES. [code = PAIN MANAGEMENT; RN TO ASSESS AND TEACH, SHIPPING ASSOCIATE/STORE TEAM MEMBER TO OBSERVE AND TEACH AND PROVIDE EDUCATION ON PAIN MANAGEMENT TECHNIQUES.] Future Scheduled Test PHYSICAL T HERAPIST TO EVALUATE FOR STRENGTHEN BALANCE [code = PHYSICAL THERAPIST TO EVALUATE FOR STRENGTHEN BALANCE] Future Scheduled Test OCCUPATION AL THERAPIST TO EVALUATE FOR INDEPENDENT A D L'S [code = OCCUPATIONAL THERAPIST TO EVALUATE FOR INDEPENDENT A D L'S] Future Scheduled Test PRN VISITS ; NUMBER OF RN/STORE TEAM MEMBER/SHIPPING ASSOCIATE VISITS: 2 RN/STORE TEAM MEMBER/SHIPPING ASSOCIATE TO PERFORM: PAIN ASSESSMENT FOR THE FOLLOWING REASONS: EXASERBATION TO PAIN ASSESSMENT [code = PRN VISITS; NUMBER OF RN/STORE TEAM MEMBER/SHIPPING ASSOCIATE VISITS: 2 RN/STORE TEAM MEMBER/SHIPPING ASSOCIATE TO PERFORM: PAIN ASSESSMENT FOR THE FOLLOWING REASONS: EXASERBATION TO PAIN ASSESSMENT] Future Scheduled Test AGENCY MAY PERFORM A RESUMPTION OF CARE VISIT FOLLOWING ANY HOSPITAL ADMISSION. PT TO EVALUATE, OBSERVE / ASSESS, AND MONITOR, CYCLE REPAIRER TO OBSERVE AND MONITOR, PROVIDE SKILLED THERAPEUTIC INTERVENTION, ACTIVITY, EDUCATION, AND TRAINING TO ADDRESS; PT/CYCLE REPAIRER TO PROVIDE GAIT TRAINING FOR IMPROVED MOBILITY AND /OR TO NORMALIZE GAIT PATTERN NEUROMUSCULAR RE-EDUCATION / BALANCE / POSTURAL CONTROL (PT) THERAPEUTIC EXERCISES AND ESTABLISHING A HOME EXERCISE PROGRAM (PT/CYCLE REPAIRER) SIT TO/FROM STAND TRANSFERS (PT/CYCLE REPAIRER) PT / CYCLE REPAIRER TO MONITOR AND EDUCATE ON OXYGEN SATURATION DURING ADLS/IADLS, NOTIFY PHYSICIAN AND/OR THE RN CLINICAL DOCTOR CHIROPRACTIC FOR PHYSICIAN NOTIFICATION AND IF O2 SATS BELOW PHYSICIAN ORDERED PARAMETERS AFTER 10 MIN OF REST PT / CYCLE REPAIRER TO INSTRUCT PATIENT/CAREGIVER ON RISK FOR HOSPITALIZATION/EMERGENCY ROOM VISITS, TEACH SIGNS AND SYMPTOMS THAT PUT PATIENT AT RISK, WHEN TO NOTIFY NURSE/PHYSICIAN OF COMPLICATIONS/DECLINE, AND WHEN TO CALL 911. PT/CYCLE REPAIRER TO IDENTIFY FALL RISK FACTORS; EDUCATE THE PATIENT/CAREGIVER ON WAYS TO REDUCE FALL RISK FACTORS AND ESTABLISH HOME EXERCISE PROGRAM TO MINIMIZE FALL RISK. MAY TEACH THE PATIENT FLOOR RECOVERY WHEN CLINICALLY APPROPRIATE TRIM MASTER OPERATOR TO EVALUATE FOR COMMUNITY SERVICES [code = AGENCY MAY PERFORM A RESUMPTION OF CARE VISIT FOLLOWING ANY HOSPITAL ADMISSION. PT TO EVALUATE, OBSERVE / ASSESS, AND MONITOR, CYCLE REPAIRER TO OBSERVE AND MONITOR, PROVIDE SKILLED THERAPEUTIC INTERVENTION, ACTIVITY, EDUCATION, AND TRAINING TO ADDRESS; PT/CYCLE REPAIRER TO PROVIDE GAIT TRAINING FOR IMPROVED MOBILITY AND /OR TO NORMALIZE GAIT PATTERN NEUROMUSCULAR RE-EDUCATION / BALANCE / POSTURAL CONTROL (PT) THERAPEUTIC EXERCISES AND ESTABLISHING A HOME EXERCISE PROGRAM (PT/CYCLE REPAIRER) SIT TO/FROM STAND TRANSFERS (PT/CYCLE REPAIRER) PT / CYCLE REPAIRER TO MONITOR AND EDUCATE ON OXYGEN SATURATION DURING ADLS/IADLS, NOTIFY PHYSICIAN AND/OR THE RN CLINICAL DOCTOR CHIROPRACTIC FOR PHYSICIAN NOTIFICATION AND IF O2 SATS BELOW PHYSICIAN ORDERED PARAMETERS AFTER 10 MIN OF REST PT / CYCLE REPAIRER TO INSTRUCT PATIENT/CAREGIVER ON RISK FOR HOSPITALIZATION/EMERGENCY ROOM VISITS, TEACH SIGNS AND SYMPTOMS THAT PUT PATIENT AT RISK, WHEN TO NOTIFY NURSE/PHYSICIAN OF COMPLICATIONS/DECLINE, AND WHEN TO CALL 911. PT/CYCLE REPAIRER TO IDENTIFY FALL RISK FACTORS; EDUCATE THE PATIENT/CAREGIVER ON WAYS TO REDUCE FALL RISK FACTORS AND ESTABLISH HOME EXERCISE PROGRAM TO MINIMIZE FALL RISK. MAY TEACH THE PATIENT FLOOR RECOVERY WHEN CLINICALLY APPROPRIATE TRIM MASTER OPERATOR TO EVALUATE FOR COMMUNITY SERVICES] Future Scheduled Test AGENCY MAY PERFORM A RESUMPTION OF CARE VISIT FOLLOWING ANY HOSPITAL ADMISSION. OT TO EVALUATE, OBSERVE / ASSESS, AND MONITOR, SIGHT EFFECTS SPECIALIST TO OBSERVE AND MONITOR, PROVIDE SKILLED THERAPEUTIC INTERVENTION, ACTIVITY, EDUCATION, AND TRAINING TO ADDRESS;SELF CARE PERFOMANCE, BALANCE, HOME SAFETY RECOMMENDATIONS, STRENGTH BATHING/SHOWERING (OT/SIGHT EFFECTS SPECIALIST) TOILETING HYGIENE (OT/YEISON) DRESSING (OT/YEISON) ACTIVITIES OF DAILY LIVING (OT/SIGHT EFFECTS SPECIALIST) TOILET TRANSFER (OT/YEISON) BATH/SHOWER TRANSFER (OT/SIGHT EFFECTS SPECIALIST) FALLS EDUCATION POSTURAL CONTROL/BALANCE (OT/SIGHT EFFECTS SPECIALIST) THERAPEUTIC EXERCISE (OT/SIGHT EFFECTS SPECIALIST) OT/SIGHT EFFECTS SPECIALIST TO MONITOR PATIENT WITH STABLE DEPRESSION ON SIGNS AND SYMPTOMS OF WORSENING DEPRESSION AND AVAILABLE RESOURCES INCLUDING [facility] SUICIDE CRISIS [place]. OT/SIGHT EFFECTS SPECIALIST MAY EDUCATE ON PAIN MANAGEMENT CLINICALLY INDICATED, INCLUDING NON-PHARMACOLOGICAL PAIN REDUCTION TECHNIQUES AND USE OF CRYOTHERAPY OR HEAT UP TO 20 MIN AT A TIME FOR PAIN MANAGEMENT [code = AGENCY MAY PERFORM A RESUMPTION OF CARE VISIT FOLLOWING ANY HOSPITAL ADMISSION. OT TO EVALUATE, OBSERVE / ASSESS, AND MONITOR, SIGHT EFFECTS SPECIALIST TO OBSERVE AND MONITOR, PROVIDE SKILLED THERAPEUTIC INTERVENTION, ACTIVITY, EDUCATION, AND TRAINING TO ADDRESS;SELF CARE PERFOMANCE, BALANCE, HOME SAFETY RECOMMENDATIONS, STRENGTH BATHING/SHOWERING (OT/YEISON) TOILETING HYGIENE (OT/YEISON) DRESSING (OT/YEISON) ACTIVITIES OF DAILY LIVING (OT/YEISON) TOILET TRANSFER (OT/YEISON) BATH/SHOWER TRANSFER (OT/SIGHT EFFECTS SPECIALIST) FALLS EDUCATION POSTURAL CONTROL/BALANCE (OT/YEISON) THERAPEUTIC EXERCISE (OT/SIGHT EFFECTS SPECIALIST) OT/YEISON TO MONITOR PATIENT WITH STABLE DEPRESSION ON SIGNS AND SYMPTOMS OF WORSENING DEPRESSION AND AVAILABLE RESOURCES INCLUDING [facility] SUICIDE CRISIS [place]. OT/YEISON MAY EDUCATE ON PAIN MANAGEMENT CLINICALLY INDICATED, INCLUDING NON-PHARMACOLOGICAL PAIN REDUCTION TECHNIQUES AND USE OF CRYOTHERAPY OR HEAT UP TO 20 MIN AT A TIME FOR PAIN MANAGEMENT] Future Scheduled Test MEDICAL SO CIAL SERVICES FOR COMMUNITY RESOURCE PLANNING. [code = MEDICAL RESPIRATORY THERAPY TECHNICIAN FOR COMMUNITY RESOURCE PLANNING.] Goal Patient Goal [...] THE PERIOD OF INDEPENDENCE IN THE HOME. Progress Notes Progress Notes <paragraph>[Visit Date: 2024 by ANDERSON LOVE RN]:</paragraph><paragraph>SNV 65 YO FEMALE WITH MULTIPLE CO-MORBID CONDITIONS. PRESENTS IN PRIVATE HOME. IS PLEASANT AND TALKATIVE. DOCUMEMTS SENT TO [facility] FOR POSSIBLE RE ADMIT PER PATIENT REQUEST. INSTRUCTED PATIENT ON NON PHARMACEUTICAL PAIN RELIEF. UNDERSTANDING VERBALIZED</paragraph><paragraph>PATIENT REMAINS HOMEBOUND DUE TO POOR ENDURANCE, REQUIRES WALKER PLUS HUMAN ASSISTANCE TO LEAVE HOME SAFELY</paragraph> Encounters Start Date/Time End Date/Time Encounter Type Admission Type Attending [facility] Care Facility Care Department Encounter ID Discharge Date Discharge Status Discharge Condition Discharge Reason Percent Goals Met 2025-04-01 00:00:00 2025-05-30 00:00:00 Outpatient [facility] [id number] 76.92
== END 2025-04-11 23:59 | disposition home or self-care (01) ==
LOC: RAD 14:58
PROVIDERS: PCP Internal Medicine; Visit Provider Podiatrist
DX: M79.671 Pain in right foot (principal); M79.89 Other specified soft tissue disorders; W19.XXXA Unspecified fall, initial encounter
CPT/HCPCS: 73630

== ENCOUNTER 2025-04-14 08:52 | Outpatient (CLI) | payer MEDICARE, SELFPAY ==
--- NOTE | 2025-04-14 08:54 | XR_ITS ---
FINAL REPORT CLINICAL HISTORY: left hand pain Feb 15, 2025 fell and broke 4th digit and thumb COMPARISON: 03/17/2025 FINDINGS: LEFT HAND 3 views of the left hand reveal an orthopedic plate and screws in the distal radius, fusing the distal radius to the mid third metacarpal. Resection of the distal ulna is again noted. There is a screw present in the first MCP joint. There is an old fracture deformity of the second metacarpal. Advanced changes of osteoarthritis are noted at the third DIP, fourth PIP and first IP joints. The proximal row of metacarpals have been resected as well. Overall no significant changes noted since the prior exam of 03/17/2025. IMPRESSION: Postoperative and degenerative changes as described above, without significant change since the prior exam of 03/17/2025. Reviewed, Interpreted and Dictated by Houston Elizabeth MD Transcribed by Dary Leavitt Authenticated and [facility]
--- OUTSIDE RECORDS SUMMARY | 2025-04-14 08:55 | XMS_ITS | Encounter Summary ---
Author Organization Healthcare Address [address] [address] Care Team Providers Care Grain Merchandiser Name Role Phone Omar De La Torre MD Primary Care Provider [phone] Reason for Visit * Reason Onset Date Comments HCN - Rx Refill Request 10/05/2021 Encounter Details Date Type Department Care Team (Late st Contact Info) Description 10/05/2021 Telephone [facility] [address] [place] [address] João Reyes MD [address] [address] HCN - Rx Refill Request [...] Preferred Pharmacy & Location: [facility] Days of medication remaining (if under 3 days please sandra as urgent): 0 Best contact number and optimal time of day to reach caller: [phone] Additional comments/information from caller: Note: Please do not reply to this message. Follow-up communication and further actions as a result of this message need to be communicated with the patient directly, if the patient is not active onMyChart. If the patient is active on MyChart, they will receive notification of the communication/outcome via [employer]. documented in this encounter Plan of Treatment Upcoming Encounters Date Type Department Care Team (Late st Contact Info) Description 04/26/2025 10:40 AM EDT Office Visit [facility] [address] [place] [address] João Reyes MD [address] [address] documented as of this encounter Visit Diagnoses Not on filedocumented in this encounter Additional Health Concerns Assessment Noted Time A fall risk assessment has been complete d for the patient 09/11/2021 10:48 AM EST documented as of this encounter Care Teams Grain Merchandiser Relationship Specialty Start Date End Date Omar De La Torre MD [address] [facility] [address] [place] [address] PCP - General 11/24/20 documented as of this encounter
--- OUTSIDE RECORDS SUMMARY | 2025-04-14 08:55 | XMS_ITS | Encounter Summary ---
Author Organization Healthcare Address [address] [place] [address] Care Team Providers Care Brick Wheeler Name Role Phone Omar De La Torre MD Primary Care Provider [phone] Reason for Visit * Reason Onset Date Comments Med Refill 05/07/2021 Encounter Details Date Type Department Care Team (Late st Contact Info) Description 05/07/2021 Refill [facility] [address] [place] [address] João Reyes MD [address] [address] Social History Tobacco Use Types [...] optimal time of day to reach caller: [phone] Note: Please do not reply to this message. Follow-up communication and further actions as a result of this message need to be communicated with the patient directly, if the patient is not active onMyChart. If the patient is active on MyChart, they will receive notification of the communication/outcome via [employer]. documented in this encounter Plan of Treatment Upcoming Encounters Date Type Department Care Team (Late st Contact Info) Description 04/26/2025 10:40 AM EDT Office Visit [facility] [address] [place] [address] João Reyes MD [address] [address] documented as of this encounter Visit Diagnoses Not on filedocumented in this encounter Additional Health Concerns Assessment Noted Time A fall risk assessment has been complete d for the patient 04/03/2021 11:28 AM EDT documented as of this encounter Care Teams Brick Wheeler Relationship Specialty Start Date End Date Omar De La Torre MD [address] [facility] [address] [place] [address] PCP - General 11/24/20 documented as of this encounter
--- OUTSIDE RECORDS SUMMARY | 2025-04-14 08:55 | XMS_ITS | Clinical Summary ---
Author Organization [facility] Address [address] [facility] [address] [place] [address] Phone Care Team Providers Care Biofuels Engineering Manager Name Role Phone Unavailable Unavailable Conditions or Problems No information available. Medications No information available. Medications Administered No information available. Allergies, Adverse Reactions, Alerts No information available. Results No information available. Plan of Care No information available. Procedures No information available. Vital Signs No information available. Immunizations No information available. Advance Directives No information available.
--- OUTSIDE RECORDS SUMMARY | 2025-04-14 08:55 | XMS_ITS | Clinical Summary ---
Author Organization [facility] Address [address] [place] [address] Care Team Providers Care Training Specialist Name Role Phone Mason Cleaning MD Primary Care Provider [phone] Allergies Active Allergy Reactions Criticality Noted Date [...] 02/11/2025 COVID-19 Vaccine ( season) 2025 Insurance [employer]EE Care Teams Training Specialist Relationship Specialty Start Date End Date Mason Cleaning MD [address] [facility] [address] ATTN: FE CARDO[place] [address] PCP - General Emergency Medicine 09/20/16
--- OUTSIDE RECORDS SUMMARY | 2025-04-14 08:55 | XMS_ITS | Clinical Summary ---
Author Organization [facility] Address [address] [place] [address] Care Team Providers Care Stove Refinisher Name Role Phone Omar De La Torre MD Primary Care Provider [phone] Allergies Active Allergy Reactions Criticality Noted Date [...] FINISH ALL MEDICINE -- Active HYDROcodone-acetam inophen ([place]) 7.5-325 MG tablet TAKE ONE TABLET BY [...] (11/13/2021): Added automatically from request for surgery [id number] Depression with anxiety 02/13/2021 Generalized OA 02/13/2021 HTN (hypertension) 02/13/2021 Obesity 02/13/2021 Hematoma of left hip 02/13/2021 Acetabular labrum tear, left, sequela 01/18/2021 Lumbar radiculopathy 05/01/2020 Hip pain 04/18/2020 Iron deficiency anemia 09/29/2016 Status post bariatric surgery 09/29/2016 Spondylolisthesis 03/13/2015 Resolved Problems Problem Noted Date Diagnosed Date Resolved Date Insomnia 02/13/2021 04/03/2025 Physical deconditioning 03/15 Family History Medical History Relation Name Comments [...] Office Visit [facility] [address] [place] [address] João Reyes MD [address] [place] [address] Health Maintenance Due Date Last Done Comments [facility]-Bone Density Scan 1960 [facility]-Medicare Annual Wellness (AWV) 1960 [facility]-/Child/Adol SDOH Screenings 1960 [facility]- SDOH Screenings 1978 [facility]-Adult SDOH Screenings 1978 CT Colonography 2005 Colonoscopy 2005 FIT-DNA 2005 FIT 2005 FOBT 2005 Sigmoidoscopy 2005 [facility]-Colorectal Cancer Screening 2005 [facility]-Breast Cancer Screening 2010 [facility]-Pneumococcal Vaccine: 50+ Years (1 of 1 - PCV) 2010 [facility]-Zoster Vaccines (1 of 2) 2010 [facility]-RSV Vaccine: 60+ Years or (1 - Risk 60-74 years 1-dose series) 2020 [id number] Vaccine (3 - Pfizer risk series) 09/19/2020 [...] Johanne Grimes Medical Devices Implanted Type Area Foreign Exchange Position Clerk Device Identifier Shelf Expiration Date Model [...] Adults <6.0% Children and Adolescents <7.5% Source: [employer] [employer]. Standards of medical care in diabetes,2017. Diabetes Care.2017:40 (suppl 1):S1-S135. HbA1c assay performed by an ion-exchange chromatography method that is certified traceable to the DCCT. us Liana FELICIANO LAB BLOOD ORDERABLES Final R esult Performing Organization Address City/[facility]/ZIP Co de Phone Number [facility] [address] [place] [address] * [place] Hepatitis C Antibody (02/12/2021 8:20 PM EDT) [facility] Hepatitis C Antibody Negative Negative 02/12/2021 10:17 PM EDT HEALTHCARE LAB Blood Venous blood specimen / Unknown Venipuncture / Unknown 02/12/2021 8:20 PM EDT 02/12/2021 8:34 PM EDT Joanne Umaña MD LAB BLOOD ORDERABLES Final Res ult Performing Organization Address City/[facility] Co de Phone Number [facility] [address] [place] [address] from Last 3 Months or Most Recently Relevant to Health Maintenance Insurance [facility] MEDICARE Advance Directives * Full Code (Latest Code Status on File) Date Activated Date Inactivated Comments 02/13/2021 4:57 AM 02/21/2021 4:22 PM Question Answer Comments Patient has decision-making capacity? Yes * Full Code Date Activated Date Inactivated Comments 01/18/2021 4:57 PM 02/05/2021 4:59 PM Question Answer Comments Patient has decision-making capacity? Yes Care Teams Stove Refinisher Relationship Specialty Start Date End Date Omar De La Torre MD [address] [facility] [address] [place] [address] PCP - General 11/24/20
--- OUTSIDE RECORDS SUMMARY | 2025-04-14 08:55 | XMS_ITS | Encounter Summary ---
Author Organization Healthcare Address [address] [place] [address] Care Team Providers Care Dulite Machine Bluer Name Role Phone Omar De La Torre MD Primary Care Provider [phone] Encounter Details Date Type Department Care Team (Late st Contact Info) Description 09/26/2021 Lab Requisition [facility] [address] [place] [address] João Reyes MD [address] [address] Benign neoplasm of other specified sites Social [...] AM EDT Office Visit [facility] [address] [place] [address] João Reyes MD [address] [address] documented as of this encounter Procedures Procedure Name Priority Date/Time Associated Diagnosis Comments SURGICAL PATHOLOGY EXAM Routine 09/26/2021 Benign neoplasm of other specified sites documented in this encounter Results * Surgical Pathology Exam (09/26/2021) Case Report Surgical Pathology Case: [id number] Authorizing Provider: João Reyes MD Collected: 09/26/2021 Ordering Location: [facility] Lab Received: 09/26/2021 1239 Pathologist: Komal Negron [...] HOSPITAL Co de Phone Number [facility] [address] [place] [address] documented in this encounter Visit Diagnoses Diagnosis Benign neoplasm of other specified sites documented in this encounter Additional Health Concerns Assessment Noted Time A fall risk assessment has been complete d for the patient 09/11/2021 10:48 AM EST documented as of this encounter Care Teams Dulite Machine Bluer Relationship Specialty Start Date End Date Omar De La Torre MD [address] [place] [address] [address] [place] [address] PCP - General 11/24/20 documented as of this encounter
--- OUTSIDE RECORDS SUMMARY | 2025-05-29 20:00 | XMS_ITS | Clinical Summary ---
Author Organization Unknown Care Team Providers Care Lead Project Manager Name Role Phone LUCAS RUEDA, TOHMAS Unavailable Unavailable RAMSEY RN, CRUZ Unavailable Unavailable VICTORIA PT, PLACIDO Unavailable Unavailable GUS STORAGE ADMINISTRATOR, DONAL Unavailable Unavailable VELASQUEZ OT, ISABELLA Unavailable Unavailable Payers Payer Name Policy Type Policy Number Effective Date Expira tion Date [facility].HHAHRLY.MA2.C.NOAUTH [id number] MEDICARE.[place].PDGM [id number] Problems Condition Name Condition Details Condition Category Status Onset Date Resolution Date Last Treatment Date Treating Clinician Comments UNSP FRACTURE OF RIGHT FEMUR, INIT FOR CLOS FX Active 03-28 00:00: 00 Allergies, Adverse Reactions, Alerts Allergy Name Allergy Type Status Severity Reaction(s) Onset Date Inactive Date Treating Clinician Comments ADHESIVE TAPE-- Propensity to adverse reactions Active 04-01 19:51: 31 CEPHALEXIN Propensity to adverse reactions Active 04-01 19:51: 56 MORPHINE Propensity to adverse reactions Active 04-01 19:52: 06 PENICILLIN- Propensity to adverse reactions Active 04-01 19:52: 19 Vital Signs Vital Name Observation Time Observation Value Commen ts Temperature 2025-04-08 11:12:00.000 97.6 [degF] Temperature 2025-04-05 13:05:00.000 98.3 [degF] Temperature 2025-04-01 12:26:00.000 98.5 [degF] BMI (%) 2025-04-01 12:07:37.000 32 kg/m2 Height 2025-04-01 12:07:32.000 67 [in_us] Pulse 2025-04-11 12:41:00.000 76 /min Pulse 2025-04-08 11:12:00.000 74 /min Pulse 2025-04-05 13:05:00.000 85 /min Pulse 2025-04-05 10:39:00.000 84 /min Pulse 2025-04-01 12:26:00.000 76 /min O2 Saturation (%) 2025-04-11 12:41:00.000 96 % O2 Saturation (%) 2025-04-05 13:05:00.000 96 % O2 Saturation (%) 2025-04-05 10:39:00.000 95 % O2 Saturation (%) 2025-04-01 12:26:00.000 94 % Respirations 2025-04-11 12:41:00.000 18 /min Respirations 2025-04-08 11:12:00.000 18 /min Respirations 2025-04-05 13:05:00.000 18 /min Respirations 2025-04-05 10:39:00.000 18 /min Respirations 2025-04-01 12:26:00.000 16 /min Weight (lbs) 2025-04-01 12:07:37.000 210 [lb_av] Systolic Blood Pressure 2025-04-11 12:41:00.000 140 mm [Hg] Systolic Blood Pressure 2025-04-08 11:12:00.000 122 mm [Hg] Systolic Blood Pressure 2025-04-05 13:05:00.000 130 mm [Hg] Systolic Blood Pressure 2025-04-05 10:39:00.000 120 mm [Hg] Systolic Blood Pressure 2025-04-01 12:26:00.000 118 mm [Hg] Diastolic Blood Pressure 2025-04-11 12:41:00.000 [...] CONSULTING PHYSICIANS. RN TO OBSERVE AND ASSESS, HOUSEKEEPING DEPARTMENT WORKER/TELECOMMUNICATIONS CONSULTANT TO OBSERVE FOR RISK FOR FALLS AND INSTRUCT IN FALL PREVENTION, HOME SAFETY, MEDICATION MANAGEMENT, INFECTION PREVENTION, AND NUTRITION MANAGEMENT. RN/HOUSEKEEPING DEPARTMENT WORKER/TELECOMMUNICATIONS CONSULTANT NURSE MAY PERFORM O2 SATURATION LEVEL ON ADMISSION AND PRN, FOR RN TO ASSESS/HOUSEKEEPING DEPARTMENT WORKER TO OBSERVE PATIENT, WITH NOTIFICATION TO THE PHYSICIAN IF SATURATION IS 90% IN THE ABSENCE OF MORE SPECIFIC PARAMETERS FROM THE PHYSICIAN. AGENCY MAY PERFORM A RESUMPTION OF CARE VISIT FOLLOWING ANY HOSPITAL ADMISSION. RN/HOUSEKEEPING DEPARTMENT WORKER/TELECOMMUNICATIONS CONSULTANT TO MONITOR CO-MORBID CONDITIONS LISTED ON THE PLAN OF CARE AND ANY NEW CONDITIONS THAT PRESENT THEMSELVES DURING THIS EPISODE TO IDENTIFY CHANGES AND INTERVENE TO MINIMIZE COMPLICATIONS. [code = RN TO OBSERVE, ASSESS, EVALUATE, AND DEVELOP AN INDIVIDUALIZED PLAN OF CARE. AGENCY MAY ACCEPT ORDERS FROM CONSULTING PHYSICIANS. RN TO OBSERVE AND ASSESS, HOUSEKEEPING DEPARTMENT WORKER/TELECOMMUNICATIONS CONSULTANT TO OBSERVE FOR RISK FOR FALLS AND INSTRUCT IN FALL PREVENTION, HOME SAFETY, MEDICATION MANAGEMENT, INFECTION PREVENTION, AND NUTRITION MANAGEMENT. RN/HOUSEKEEPING DEPARTMENT WORKER/TELECOMMUNICATIONS CONSULTANT NURSE MAY PERFORM O2 SATURATION LEVEL ON ADMISSION AND PRN, FOR RN TO ASSESS/HOUSEKEEPING DEPARTMENT WORKER TO OBSERVE PATIENT, WITH NOTIFICATION TO THE PHYSICIAN IF SATURATION IS 90% IN THE ABSENCE OF MORE SPECIFIC PARAMETERS FROM THE PHYSICIAN. AGENCY MAY PERFORM A RESUMPTION OF CARE VISIT FOLLOWING ANY HOSPITAL ADMISSION. RN/HOUSEKEEPING DEPARTMENT WORKER/TELECOMMUNICATIONS CONSULTANT TO MONITOR CO-MORBID CONDITIONS LISTED ON THE PLAN OF CARE AND ANY NEW CONDITIONS THAT PRESENT THEMSELVES DURING THIS EPISODE TO IDENTIFY CHANGES AND INTERVENE TO MINIMIZE COMPLICATIONS.] Future Scheduled Test MEDICATION MANAGEMENT; RN/HOUSEKEEPING DEPARTMENT WORKER/TELECOMMUNICATIONS CONSULTANT TO REVIEW MEDICATIONS FOR INTERACTIONS, EFFECTIVENESS OF DRUG THERAPY, AND SIGNS/SYMPTOMS OF ADVERSE REACTIONS. MAY INSTRUCT AND REINFORCE MEDICATION TEACHING RELATED TO THE USE OF MEDICATIONS, DOSAGE, FREQUENCY, PURPOSE, SIDE EFFECTS, AND TO REPORT COMPLICATIONS. [code = MEDICATION MANAGEMENT; RN/HOUSEKEEPING DEPARTMENT WORKER/TELECOMMUNICATIONS CONSULTANT TO REVIEW MEDICATIONS FOR INTERACTIONS, EFFECTIVENESS OF DRUG THERAPY, AND SIGNS/SYMPTOMS OF ADVERSE REACTIONS. MAY INSTRUCT AND REINFORCE MEDICATION TEACHING RELATED TO THE USE OF MEDICATIONS, DOSAGE, FREQUENCY, PURPOSE, SIDE EFFECTS, AND TO REPORT COMPLICATIONS.] Future Scheduled Test CARDIOVASC ULAR SYSTEM; RN TO ASSESS/TEACH, HOUSEKEEPING DEPARTMENT WORKER/TELECOMMUNICATIONS CONSULTANT TO OBSERVE/TEACH RELATED TO ALTERED CARDIOVASCULAR STATUS TO MINIMIZE COMPLICATIONS AND REDUCE HOSPITALIZATION. [code = CARDIOVASCULAR SYSTEM; RN TO ASSESS/TEACH, HOUSEKEEPING DEPARTMENT WORKER/TELECOMMUNICATIONS CONSULTANT TO OBSERVE/TEACH RELATED TO ALTERED CARDIOVASCULAR STATUS TO MINIMIZE COMPLICATIONS AND REDUCE HOSPITALIZATION.] Future Scheduled Test HYPERTENSI ON MANAGEMENT; RN TO ASSESS AND TEACH, HOUSEKEEPING DEPARTMENT WORKER/TELECOMMUNICATIONS CONSULTANT TO OBSERVE AND TEACH WARNING SIGNS AND SYMPTOMS TO AVOID HOSPITALIZATION. [code = HYPERTENSION MANAGEMENT; RN TO ASSESS AND TEACH, HOUSEKEEPING DEPARTMENT WORKER/TELECOMMUNICATIONS CONSULTANT TO OBSERVE AND TEACH WARNING SIGNS AND SYMPTOMS TO AVOID HOSPITALIZATION.] Future Scheduled Test SKIN INTEG RITY RN TO ASSESS AND TEACH, HOUSEKEEPING DEPARTMENT WORKER/TELECOMMUNICATIONS CONSULTANT TO OBSERVE AND TEACH INTEGUMENTARY STATUS TO IDENTIFY CHANGES AND INTERVENE TO MINIMIZE COMPLICATIONS. PROVIDE SKILLED TEACHING OF GENERAL WOUND AND SKIN CARE AND PREVENTION RELATED TO POTENTIAL FOR OR ACTUAL ALTERED SKIN INTEGRITY LEFT WRIST [code = SKIN INTEGRITY RN TO ASSESS AND TEACH, HOUSEKEEPING DEPARTMENT WORKER/TELECOMMUNICATIONS CONSULTANT TO OBSERVE AND TEACH INTEGUMENTARY STATUS TO IDENTIFY CHANGES AND INTERVENE TO MINIMIZE COMPLICATIONS. PROVIDE SKILLED TEACHING OF GENERAL WOUND AND SKIN CARE AND PREVENTION RELATED TO POTENTIAL FOR OR ACTUAL ALTERED SKIN INTEGRITY LEFT WRIST] Future Scheduled Test PAIN MANAG EMENT; RN TO ASSESS AND TEACH, TELECOMMUNICATIONS CONSULTANT/HOUSEKEEPING DEPARTMENT WORKER TO OBSERVE AND TEACH AND PROVIDE EDUCATION ON PAIN MANAGEMENT TECHNIQUES. [code = PAIN MANAGEMENT; RN TO ASSESS AND TEACH, TELECOMMUNICATIONS CONSULTANT/HOUSEKEEPING DEPARTMENT WORKER TO OBSERVE AND TEACH AND PROVIDE EDUCATION ON PAIN MANAGEMENT TECHNIQUES.] Future Scheduled Test PHYSICAL T HERAPIST TO EVALUATE FOR STRENGTHEN BALANCE [code = PHYSICAL THERAPIST TO EVALUATE FOR STRENGTHEN BALANCE] Future Scheduled Test OCCUPATION AL THERAPIST TO EVALUATE FOR INDEPENDENT A D L'S [code = OCCUPATIONAL THERAPIST TO EVALUATE FOR INDEPENDENT A D L'S] Future Scheduled Test PRN VISITS ; NUMBER OF RN/HOUSEKEEPING DEPARTMENT WORKER/TELECOMMUNICATIONS CONSULTANT VISITS: 2 RN/HOUSEKEEPING DEPARTMENT WORKER/TELECOMMUNICATIONS CONSULTANT TO PERFORM: PAIN ASSESSMENT FOR THE FOLLOWING REASONS: EXASERBATION TO PAIN ASSESSMENT [code = PRN VISITS; NUMBER OF RN/HOUSEKEEPING DEPARTMENT WORKER/TELECOMMUNICATIONS CONSULTANT VISITS: 2 RN/HOUSEKEEPING DEPARTMENT WORKER/TELECOMMUNICATIONS CONSULTANT TO PERFORM: PAIN ASSESSMENT FOR THE FOLLOWING REASONS: EXASERBATION TO PAIN ASSESSMENT] Future Scheduled Test AGENCY MAY PERFORM A RESUMPTION OF CARE VISIT FOLLOWING ANY HOSPITAL ADMISSION. PT TO EVALUATE, OBSERVE / ASSESS, AND MONITOR, STORAGE ADMINISTRATOR TO OBSERVE AND MONITOR, PROVIDE SKILLED THERAPEUTIC INTERVENTION, ACTIVITY, EDUCATION, AND TRAINING TO ADDRESS; PT/STORAGE ADMINISTRATOR TO PROVIDE GAIT TRAINING FOR IMPROVED MOBILITY AND /OR TO NORMALIZE GAIT PATTERN NEUROMUSCULAR RE-EDUCATION / BALANCE / POSTURAL CONTROL (PT) THERAPEUTIC EXERCISES AND ESTABLISHING A HOME EXERCISE PROGRAM (PT/STORAGE ADMINISTRATOR) SIT TO/FROM STAND TRANSFERS (PT/STORAGE ADMINISTRATOR) PT / STORAGE ADMINISTRATOR TO MONITOR AND EDUCATE ON OXYGEN SATURATION DURING ADLS/IADLS, NOTIFY PHYSICIAN AND/OR THE RN CLINICAL INSURANCE CLAIM APPROVER FOR PHYSICIAN NOTIFICATION AND IF O2 SATS BELOW PHYSICIAN ORDERED PARAMETERS AFTER 10 MIN OF REST PT / STORAGE ADMINISTRATOR TO INSTRUCT PATIENT/CAREGIVER ON RISK FOR HOSPITALIZATION/EMERGENCY ROOM VISITS, TEACH SIGNS AND SYMPTOMS THAT PUT PATIENT AT RISK, WHEN TO NOTIFY NURSE/PHYSICIAN OF COMPLICATIONS/DECLINE, AND WHEN TO CALL 911. PT/STORAGE ADMINISTRATOR TO IDENTIFY FALL RISK FACTORS; EDUCATE THE PATIENT/CAREGIVER ON WAYS TO REDUCE FALL RISK FACTORS AND ESTABLISH HOME EXERCISE PROGRAM TO MINIMIZE FALL RISK. MAY TEACH THE PATIENT FLOOR RECOVERY WHEN CLINICALLY APPROPRIATE BINDER CUTTER TO EVALUATE FOR COMMUNITY SERVICES [code = AGENCY MAY PERFORM A RESUMPTION OF CARE VISIT FOLLOWING ANY HOSPITAL ADMISSION. PT TO EVALUATE, OBSERVE / ASSESS, AND MONITOR, STORAGE ADMINISTRATOR TO OBSERVE AND MONITOR, PROVIDE SKILLED THERAPEUTIC INTERVENTION, ACTIVITY, EDUCATION, AND TRAINING TO ADDRESS; PT/STORAGE ADMINISTRATOR TO PROVIDE GAIT TRAINING FOR IMPROVED MOBILITY AND /OR TO NORMALIZE GAIT PATTERN NEUROMUSCULAR RE-EDUCATION / BALANCE / POSTURAL CONTROL (PT) THERAPEUTIC EXERCISES AND ESTABLISHING A HOME EXERCISE PROGRAM (PT/STORAGE ADMINISTRATOR) SIT TO/FROM STAND TRANSFERS (PT/STORAGE ADMINISTRATOR) PT / STORAGE ADMINISTRATOR TO MONITOR AND EDUCATE ON OXYGEN SATURATION DURING ADLS/IADLS, NOTIFY PHYSICIAN AND/OR THE RN CLINICAL INSURANCE CLAIM APPROVER FOR PHYSICIAN NOTIFICATION AND IF O2 SATS BELOW PHYSICIAN ORDERED PARAMETERS AFTER 10 MIN OF REST PT / STORAGE ADMINISTRATOR TO INSTRUCT PATIENT/CAREGIVER ON RISK FOR HOSPITALIZATION/EMERGENCY ROOM VISITS, TEACH SIGNS AND SYMPTOMS THAT PUT PATIENT AT RISK, WHEN TO NOTIFY NURSE/PHYSICIAN OF COMPLICATIONS/DECLINE, AND WHEN TO CALL 911. PT/STORAGE ADMINISTRATOR TO IDENTIFY FALL RISK FACTORS; EDUCATE THE PATIENT/CAREGIVER ON WAYS TO REDUCE FALL RISK FACTORS AND ESTABLISH HOME EXERCISE PROGRAM TO MINIMIZE FALL RISK. MAY TEACH THE PATIENT FLOOR RECOVERY WHEN CLINICALLY APPROPRIATE BINDER CUTTER TO EVALUATE FOR COMMUNITY SERVICES] Future Scheduled Test AGENCY MAY PERFORM A RESUMPTION OF CARE VISIT FOLLOWING ANY HOSPITAL ADMISSION. OT TO EVALUATE, OBSERVE / ASSESS, AND MONITOR, YEISON TO OBSERVE AND MONITOR, PROVIDE SKILLED THERAPEUTIC INTERVENTION, ACTIVITY, EDUCATION, AND TRAINING TO ADDRESS;SELF CARE PERFOMANCE, BALANCE, HOME SAFETY RECOMMENDATIONS, STRENGTH BATHING/SHOWERING (OT/MODEL BUILDER) TOILETING HYGIENE (OT/YEISON) DRESSING (OT/MODEL BUILDER) ACTIVITIES OF DAILY LIVING (OT/YEISON) TOILET TRANSFER (OT/YEISON) BATH/SHOWER TRANSFER (OT/MODEL BUILDER) FALLS EDUCATION POSTURAL CONTROL/BALANCE (OT/YEISON) THERAPEUTIC EXERCISE (OT/YEISON) OT/MODEL BUILDER TO MONITOR PATIENT WITH STABLE DEPRESSION ON SIGNS AND SYMPTOMS OF WORSENING DEPRESSION AND AVAILABLE RESOURCES INCLUDING [facility] SUICIDE CRISIS [facility]. OT/MODEL BUILDER MAY EDUCATE ON PAIN MANAGEMENT CLINICALLY INDICATED, INCLUDING NON-PHARMACOLOGICAL PAIN REDUCTION TECHNIQUES AND USE OF CRYOTHERAPY OR HEAT UP TO 20 MIN AT A TIME FOR PAIN MANAGEMENT [code = AGENCY MAY PERFORM A RESUMPTION OF CARE VISIT FOLLOWING ANY HOSPITAL ADMISSION. OT TO EVALUATE, OBSERVE / ASSESS, AND MONITOR, MODEL BUILDER TO OBSERVE AND MONITOR, PROVIDE SKILLED THERAPEUTIC INTERVENTION, ACTIVITY, EDUCATION, AND TRAINING TO ADDRESS;SELF CARE PERFOMANCE, BALANCE, HOME SAFETY RECOMMENDATIONS, STRENGTH BATHING/SHOWERING (OT/MODEL BUILDER) TOILETING HYGIENE (OT/YEISON) DRESSING (OT/MODEL BUILDER) ACTIVITIES OF DAILY LIVING (OT/MODEL BUILDER) TOILET TRANSFER (OT/YEISON) BATH/SHOWER TRANSFER (OT/YEISON) FALLS EDUCATION POSTURAL CONTROL/BALANCE (OT/YEISON) THERAPEUTIC EXERCISE (OT/MODEL BUILDER) OT/MODEL BUILDER TO MONITOR PATIENT WITH STABLE DEPRESSION ON SIGNS AND SYMPTOMS OF WORSENING DEPRESSION AND AVAILABLE RESOURCES INCLUDING 8 SUICIDE CRISIS [facility]. OT/MODEL BUILDER MAY EDUCATE ON PAIN MANAGEMENT CLINICALLY INDICATED, INCLUDING NON-PHARMACOLOGICAL PAIN REDUCTION TECHNIQUES AND USE OF CRYOTHERAPY OR HEAT UP TO 20 MIN AT A TIME FOR PAIN MANAGEMENT] Future Scheduled Test MEDICAL SO CIAL SERVICES FOR COMMUNITY RESOURCE PLANNING. [code = MEDICAL FIRE TOWER KEEPER FOR COMMUNITY RESOURCE PLANNING.] Goal Patient Goal [...] End Date/Time Encounter Type Admission Type Attending [facility] Care Facility Care Department Encounter ID Discharge Date Discharge Status Discharge Condition Discharge Reason Percent Goals Met 2025-04-01 00:00:00 2025-05-30 00:00:00 Outpatient CRUZ [facility] [id number] 43.48
--- OUTSIDE RECORDS SUMMARY | 2025-05-29 20:00 | XMS_ITS | Clinical Summary ---
Author Organization Unknown Care Team Providers Care Batch Attendant Name Role Phone LUCAS RUEDA, THOMAS Unavailable Unavailable RAMSEY RN, CRUZ Unavailable Unavailable VICTORIA PT, PLACIDO Unavailable Unavailable GUS HAT FORMING MACHINE OPERATOR, DONAL Unavailable Unavailable VELASQUEZ OT, ISABELLA Unavailable Unavailable Payers Payer Name Policy Type Policy Number Effective Date Expira tion Date [facility].HHAHRLY.MA2.C.NOAUTH [id number] MEDICARE.[place].PDGM [id number] Problems Condition Name Condition Details Condition Category [...] CONSULTING PHYSICIANS. RN TO OBSERVE AND ASSESS, CDA TEACHER/TIRE SERVICER TO OBSERVE FOR RISK FOR FALLS AND INSTRUCT IN FALL PREVENTION, HOME SAFETY, MEDICATION MANAGEMENT, INFECTION PREVENTION, AND NUTRITION MANAGEMENT. RN/CDA TEACHER/TIRE SERVICER NURSE MAY PERFORM O2 SATURATION LEVEL ON ADMISSION AND PRN, FOR RN TO ASSESS/CDA TEACHER TO OBSERVE PATIENT, WITH NOTIFICATION TO THE PHYSICIAN IF SATURATION IS 90% IN THE ABSENCE OF MORE SPECIFIC PARAMETERS FROM THE PHYSICIAN. AGENCY MAY PERFORM A RESUMPTION OF CARE VISIT FOLLOWING ANY HOSPITAL ADMISSION. RN/CDA TEACHER/TIRE SERVICER TO MONITOR CO-MORBID CONDITIONS LISTED ON THE PLAN OF CARE AND ANY NEW CONDITIONS THAT PRESENT THEMSELVES DURING THIS EPISODE TO IDENTIFY CHANGES AND INTERVENE TO MINIMIZE COMPLICATIONS. [code = RN TO OBSERVE, ASSESS, EVALUATE, AND DEVELOP AN INDIVIDUALIZED PLAN OF CARE. AGENCY MAY ACCEPT ORDERS FROM CONSULTING PHYSICIANS. RN TO OBSERVE AND ASSESS, CDA TEACHER/TIRE SERVICER TO OBSERVE FOR RISK FOR FALLS AND INSTRUCT IN FALL PREVENTION, HOME SAFETY, MEDICATION MANAGEMENT, INFECTION PREVENTION, AND NUTRITION MANAGEMENT. RN/CDA TEACHER/TIRE SERVICER NURSE MAY PERFORM O2 SATURATION LEVEL ON ADMISSION AND PRN, FOR RN TO ASSESS/CDA TEACHER TO OBSERVE PATIENT, WITH NOTIFICATION TO THE PHYSICIAN IF SATURATION IS 90% IN THE ABSENCE OF MORE SPECIFIC PARAMETERS FROM THE PHYSICIAN. AGENCY MAY PERFORM A RESUMPTION OF CARE VISIT FOLLOWING ANY HOSPITAL ADMISSION. RN/CDA TEACHER/TIRE SERVICER TO MONITOR CO-MORBID CONDITIONS LISTED ON THE PLAN OF CARE AND ANY NEW CONDITIONS THAT PRESENT THEMSELVES DURING THIS EPISODE TO IDENTIFY CHANGES AND INTERVENE TO MINIMIZE COMPLICATIONS.] Future Scheduled Test MEDICATION MANAGEMENT; RN/CDA TEACHER/TIRE SERVICER TO REVIEW MEDICATIONS FOR INTERACTIONS, EFFECTIVENESS OF DRUG THERAPY, AND SIGNS/SYMPTOMS OF ADVERSE REACTIONS. MAY INSTRUCT AND REINFORCE MEDICATION TEACHING RELATED TO THE USE OF MEDICATIONS, DOSAGE, FREQUENCY, PURPOSE, SIDE EFFECTS, AND TO REPORT COMPLICATIONS. [code = MEDICATION MANAGEMENT; RN/CDA TEACHER/TIRE SERVICER TO REVIEW MEDICATIONS FOR INTERACTIONS, EFFECTIVENESS OF DRUG THERAPY, AND SIGNS/SYMPTOMS OF ADVERSE REACTIONS. MAY INSTRUCT AND REINFORCE MEDICATION TEACHING RELATED TO THE USE OF MEDICATIONS, DOSAGE, FREQUENCY, PURPOSE, SIDE EFFECTS, AND TO REPORT COMPLICATIONS.] Future Scheduled Test CARDIOVASC ULAR SYSTEM; RN TO ASSESS/TEACH, CDA TEACHER/TIRE SERVICER TO OBSERVE/TEACH RELATED TO ALTERED CARDIOVASCULAR STATUS TO MINIMIZE COMPLICATIONS AND REDUCE HOSPITALIZATION. [code = CARDIOVASCULAR SYSTEM; RN TO ASSESS/TEACH, CDA TEACHER/TIRE SERVICER TO OBSERVE/TEACH RELATED TO ALTERED CARDIOVASCULAR STATUS TO MINIMIZE COMPLICATIONS AND REDUCE HOSPITALIZATION.] Future Scheduled Test HYPERTENSI ON MANAGEMENT; RN TO ASSESS AND TEACH, CDA TEACHER/TIRE SERVICER TO OBSERVE AND TEACH WARNING SIGNS AND SYMPTOMS TO AVOID HOSPITALIZATION. [code = HYPERTENSION MANAGEMENT; RN TO ASSESS AND TEACH, CDA TEACHER/TIRE SERVICER TO OBSERVE AND TEACH WARNING SIGNS AND SYMPTOMS TO AVOID HOSPITALIZATION.] Future Scheduled Test SKIN INTEG RITY RN TO ASSESS AND TEACH, CDA TEACHER/TIRE SERVICER TO OBSERVE AND TEACH INTEGUMENTARY STATUS TO IDENTIFY CHANGES AND INTERVENE TO MINIMIZE COMPLICATIONS. PROVIDE SKILLED TEACHING OF GENERAL WOUND AND SKIN CARE AND PREVENTION RELATED TO POTENTIAL FOR OR ACTUAL ALTERED SKIN INTEGRITY LEFT WRIST [code = SKIN INTEGRITY RN TO ASSESS AND TEACH, CDA TEACHER/TIRE SERVICER TO OBSERVE AND TEACH INTEGUMENTARY STATUS TO IDENTIFY CHANGES AND INTERVENE TO MINIMIZE COMPLICATIONS. PROVIDE SKILLED TEACHING OF GENERAL WOUND AND SKIN CARE AND PREVENTION RELATED TO POTENTIAL FOR OR ACTUAL ALTERED SKIN INTEGRITY LEFT WRIST] Future Scheduled Test PAIN MANAG EMENT; RN TO ASSESS AND TEACH, TIRE SERVICER/CDA TEACHER TO OBSERVE AND TEACH AND PROVIDE EDUCATION ON PAIN MANAGEMENT TECHNIQUES. [code = PAIN MANAGEMENT; RN TO ASSESS AND TEACH, TIRE SERVICER/CDA TEACHER TO OBSERVE AND TEACH AND PROVIDE EDUCATION ON PAIN MANAGEMENT TECHNIQUES.] Future Scheduled Test PHYSICAL T HERAPIST TO EVALUATE FOR STRENGTHEN BALANCE [code = PHYSICAL THERAPIST TO EVALUATE FOR STRENGTHEN BALANCE] Future Scheduled Test OCCUPATION AL THERAPIST TO EVALUATE FOR INDEPENDENT A D L'S [code = OCCUPATIONAL THERAPIST TO EVALUATE FOR INDEPENDENT A D L'S] Future Scheduled Test PRN VISITS ; NUMBER OF RN/CDA TEACHER/TIRE SERVICER VISITS: 2 RN/CDA TEACHER/TIRE SERVICER TO PERFORM: PAIN ASSESSMENT FOR THE FOLLOWING REASONS: EXASERBATION TO PAIN ASSESSMENT [code = PRN VISITS; NUMBER OF RN/CDA TEACHER/TIRE SERVICER VISITS: 2 RN/CDA TEACHER/TIRE SERVICER TO PERFORM: PAIN ASSESSMENT FOR THE FOLLOWING REASONS: EXASERBATION TO PAIN ASSESSMENT] Future Scheduled Test AGENCY MAY PERFORM A RESUMPTION OF CARE VISIT FOLLOWING ANY HOSPITAL ADMISSION. PT TO EVALUATE, OBSERVE / ASSESS, AND MONITOR, HAT FORMING MACHINE OPERATOR TO OBSERVE AND MONITOR, PROVIDE SKILLED THERAPEUTIC INTERVENTION, ACTIVITY, EDUCATION, AND TRAINING TO ADDRESS; PT/HAT FORMING MACHINE OPERATOR TO PROVIDE GAIT TRAINING FOR IMPROVED MOBILITY AND /OR TO NORMALIZE GAIT PATTERN NEUROMUSCULAR RE-EDUCATION / BALANCE / POSTURAL CONTROL (PT) THERAPEUTIC EXERCISES AND ESTABLISHING A HOME EXERCISE PROGRAM (PT/HAT FORMING MACHINE OPERATOR) SIT TO/FROM STAND TRANSFERS (PT/HAT FORMING MACHINE OPERATOR) PT / HAT FORMING MACHINE OPERATOR TO MONITOR AND EDUCATE ON OXYGEN SATURATION DURING ADLS/IADLS, NOTIFY PHYSICIAN AND/OR THE RN CLINICAL MARKETING DEVELOPER FOR PHYSICIAN NOTIFICATION AND IF O2 SATS BELOW PHYSICIAN ORDERED PARAMETERS AFTER 10 MIN OF REST PT / HAT FORMING MACHINE OPERATOR TO INSTRUCT PATIENT/CAREGIVER ON RISK FOR HOSPITALIZATION/EMERGENCY ROOM VISITS, TEACH SIGNS AND SYMPTOMS THAT PUT PATIENT AT RISK, WHEN TO NOTIFY NURSE/PHYSICIAN OF COMPLICATIONS/DECLINE, AND WHEN TO CALL 911. PT/HAT FORMING MACHINE OPERATOR TO IDENTIFY FALL RISK FACTORS; EDUCATE THE PATIENT/CAREGIVER ON WAYS TO REDUCE FALL RISK FACTORS AND ESTABLISH HOME EXERCISE PROGRAM TO MINIMIZE FALL RISK. MAY TEACH THE PATIENT FLOOR RECOVERY WHEN CLINICALLY APPROPRIATE CRUISE GUIDE TO EVALUATE FOR COMMUNITY SERVICES [code = AGENCY MAY PERFORM A RESUMPTION OF CARE VISIT FOLLOWING ANY HOSPITAL ADMISSION. PT TO EVALUATE, OBSERVE / ASSESS, AND MONITOR, HAT FORMING MACHINE OPERATOR TO OBSERVE AND MONITOR, PROVIDE SKILLED THERAPEUTIC INTERVENTION, ACTIVITY, EDUCATION, AND TRAINING TO ADDRESS; PT/HAT FORMING MACHINE OPERATOR TO PROVIDE GAIT TRAINING FOR IMPROVED MOBILITY AND /OR TO NORMALIZE GAIT PATTERN NEUROMUSCULAR RE-EDUCATION / BALANCE / POSTURAL CONTROL (PT) THERAPEUTIC EXERCISES AND ESTABLISHING A HOME EXERCISE PROGRAM (PT/HAT FORMING MACHINE OPERATOR) SIT TO/FROM STAND TRANSFERS (PT/HAT FORMING MACHINE OPERATOR) PT / HAT FORMING MACHINE OPERATOR TO MONITOR AND EDUCATE ON OXYGEN SATURATION DURING ADLS/IADLS, NOTIFY PHYSICIAN AND/OR THE RN CLINICAL MARKETING DEVELOPER FOR PHYSICIAN NOTIFICATION AND IF O2 SATS BELOW PHYSICIAN ORDERED PARAMETERS AFTER 10 MIN OF REST PT / HAT FORMING MACHINE OPERATOR TO INSTRUCT PATIENT/CAREGIVER ON RISK FOR HOSPITALIZATION/EMERGENCY ROOM VISITS, TEACH SIGNS AND SYMPTOMS THAT PUT PATIENT AT RISK, WHEN TO NOTIFY NURSE/PHYSICIAN OF COMPLICATIONS/DECLINE, AND WHEN TO CALL 911. PT/HAT FORMING MACHINE OPERATOR TO IDENTIFY FALL RISK FACTORS; EDUCATE THE PATIENT/CAREGIVER ON WAYS TO REDUCE FALL RISK FACTORS AND ESTABLISH HOME EXERCISE PROGRAM TO MINIMIZE FALL RISK. MAY TEACH THE PATIENT FLOOR RECOVERY WHEN CLINICALLY APPROPRIATE CRUISE GUIDE TO EVALUATE FOR COMMUNITY SERVICES] Future Scheduled Test AGENCY MAY PERFORM A RESUMPTION OF CARE VISIT FOLLOWING ANY HOSPITAL ADMISSION. OT TO EVALUATE, OBSERVE / ASSESS, AND MONITOR, YEISON TO OBSERVE AND MONITOR, PROVIDE SKILLED THERAPEUTIC INTERVENTION, ACTIVITY, EDUCATION, AND TRAINING TO ADDRESS;SELF CARE PERFOMANCE, BALANCE, HOME SAFETY RECOMMENDATIONS, STRENGTH BATHING/SHOWERING (OT/HORTICULTURAL SPECIALTY GROWER) TOILETING HYGIENE (OT/YEISON) DRESSING (OT/HORTICULTURAL SPECIALTY GROWER) ACTIVITIES OF DAILY LIVING (OT/YEISON) TOILET TRANSFER (OT/YEISON) BATH/SHOWER TRANSFER (OT/HORTICULTURAL SPECIALTY GROWER) FALLS EDUCATION POSTURAL CONTROL/BALANCE (OT/YEISON) THERAPEUTIC EXERCISE (OT/YEISON) OT/HORTICULTURAL SPECIALTY GROWER TO MONITOR PATIENT WITH STABLE DEPRESSION ON SIGNS AND SYMPTOMS OF WORSENING DEPRESSION AND AVAILABLE RESOURCES INCLUDING [facility] SUICIDE CRISIS [facility]. OT/HORTICULTURAL SPECIALTY GROWER MAY EDUCATE ON PAIN MANAGEMENT CLINICALLY INDICATED, INCLUDING NON-PHARMACOLOGICAL PAIN REDUCTION TECHNIQUES AND USE OF CRYOTHERAPY OR HEAT UP TO 20 MIN AT A TIME FOR PAIN MANAGEMENT [code = AGENCY MAY PERFORM A RESUMPTION OF CARE VISIT FOLLOWING ANY HOSPITAL ADMISSION. OT TO EVALUATE, OBSERVE / ASSESS, AND MONITOR, HORTICULTURAL SPECIALTY GROWER TO OBSERVE AND MONITOR, PROVIDE SKILLED THERAPEUTIC INTERVENTION, ACTIVITY, EDUCATION, AND TRAINING TO ADDRESS;SELF CARE PERFOMANCE, BALANCE, HOME SAFETY RECOMMENDATIONS, STRENGTH BATHING/SHOWERING (OT/HORTICULTURAL SPECIALTY GROWER) TOILETING HYGIENE (OT/YEISON) DRESSING (OT/HORTICULTURAL SPECIALTY GROWER) ACTIVITIES OF DAILY LIVING (OT/HORTICULTURAL SPECIALTY GROWER) TOILET TRANSFER (OT/YEISON) BATH/SHOWER TRANSFER (OT/YEISON) FALLS EDUCATION POSTURAL CONTROL/BALANCE (OT/YEISON) THERAPEUTIC EXERCISE (OT/HORTICULTURAL SPECIALTY GROWER) OT/HORTICULTURAL SPECIALTY GROWER TO MONITOR PATIENT WITH STABLE DEPRESSION ON SIGNS AND SYMPTOMS OF WORSENING DEPRESSION AND AVAILABLE RESOURCES INCLUDING 8 SUICIDE CRISIS [facility]. OT/HORTICULTURAL SPECIALTY GROWER MAY EDUCATE ON PAIN MANAGEMENT CLINICALLY INDICATED, INCLUDING NON-PHARMACOLOGICAL PAIN REDUCTION TECHNIQUES AND USE OF CRYOTHERAPY OR HEAT UP TO 20 MIN AT A TIME FOR PAIN MANAGEMENT] Future Scheduled Test MEDICAL SO CIAL SERVICES FOR COMMUNITY RESOURCE PLANNING. [code = MEDICAL BURLAPPER FOR COMMUNITY RESOURCE PLANNING.] Goal Patient Goal [...] End Date/Time Encounter Type Admission Type Attending [facility] Care Facility Care Department Encounter ID Discharge Date Discharge Status Discharge Condition Discharge Reason Percent Goals Met 2025-04-01 00:00:00 2025-05-30 00:00:00 Outpatient CRUZ MICHAUD [facility] [id number] 43.48
== END 2025-04-14 23:59 | disposition home or self-care (01) ==
LOC: RAD 08:52
PROVIDERS: PCP Internal Medicine; Visit Provider Physician Assistant Surgical
DX: S62.333A Displaced fracture of neck of third metacarpal bone, left hand, initial encounter for closed fracture (principal); M19.032 Primary osteoarthritis, left wrist; Z98.890 Other specified postprocedural states; W19.XXXA Unspecified fall, initial encounter
CPT/HCPCS: 73130

== ENCOUNTER 2025-05-20 14:14 | Emergency (ER) | payer MEDICARE, SELFPAY ==
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
--- OUTSIDE RECORDS SUMMARY | 2025-05-20 14:24 | XMS_ITS | Referral Summary ---
Author Organization [employer] ([place], [place], [place], [place], [place]) Address [address] [place] [address] Care Team Providers Care Print Shop Chief Clerk Name Role Phone Omar De La Torre MD Primary Care Provider [phone] Allergies Active Allergy Reactions Criticality Noted Date [...] 10/25/2022 11:11 AM EDT Plan of Treatment Not on file Medical Devices Implanted Type Area Drafter (Cad) Electronic Device Identifier Shelf Expiration Date Model / Serial / Lot Bone Vivigen Formable Bl-1600-001 - [id number] Implanted:Qty : 1 on 10/30/2022 by Duane Friedman MD at [facility] IMPLANTS N/A: Spine Cervical LIFENET:LIFENET TRANSPLANT SRV 10/11/2023 BL-1600-0 01 / [id number] / Cage Eit Cif H 5mm 8d S [id number] - [id number] Implanted:Qty : 1 on 10/30/2022 by Duane Friedman MD at [facility] IMPLANTS N/A: Spine Cervical J &J:DEPUY:DEPUY SPINE 01/10/2026 [id number] / / [id number] Cage Eit Cif H 5mm 8d S [id number] - [id number] Implanted:Qty : 1 on 10/30/2022 by Duane Friedman MD at [facility] IMPLANTS N/A: Spine Cervical J &J:DEPUY:DEPUY SPINE 07/13/2023 [id number] / / [id number] Cage Eit Cif H 5mm 8d S [id number] - [id number] Implanted:Qty : 1 on 10/30/2022 by Duane Friedman MD at [facility] IMPLANTS N/A: Spine Cervical J &J:DEPUY:DEPUY SPINE 01/10/2026 [id number] / / [id number] Plt Ant Skyln Hybrd Lvl3 45mm 1868-03-045 - [id number] Implanted:Qty : 1 on 10/30/2022 by Duane Friedman MD at [facility] IMPLANTS N/A: Neck J &J:DEPUY:DEPUY SPINE 1867-09-0 45 / 0 45 / Scr Skyln Vari Sd 18mm 1867-50-018 - [id number] Implanted:Qty : 8 on 10/30/2022 by Duane Friedman MD at [facility] IMPLANTS N/A: Neck J &J:DEPUY:DEPUY SPINE 0 18 / 18 / Insurance BLUE CROSS/BLUE SHIELD Advance Directives For more information, please contact: [phone] Documents on File Type Date Recorded 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
--- OUTSIDE RECORDS SUMMARY | 2025-05-20 14:24 | XMS_ITS | Data Portability ---
Author Organization [place] [facility] Address [address] [place] [address] Assessment Encounter Date Assessment Date Assessment LastModified [...] of 10 today. Patient's Daniel number is [id number]. Daniel has been reviewed and does show [...] Procedures intrathecal pump adjustment (PROC) 2023 024 [email or web address] Not available 12:43:38 Surgeries None recorded. Imaging None recorded. Medication Orders None recorded. Patient TargetsNo targets recorded. Patient InstructionsNo instructions recorded. Reason for Referral None Reported. Results Created Date Observation Date Name Description Value Unit Range Abnormal Flag Note LastModifiedBy Organization Detail LastModifiedTime 11/24/19 24 11/10/2023 MRI, lumba r spine , w/o contr ast No observ ation record ed. [email or web address] Not Available 2023 08:52:50 11/24/19 24 11/10/2023 MRI, head, w/wo contr ast No observ ation record ed. [email or web address] Not Available 2023 08:54:13 11/24/19 24 11/20/2023 XR, hand No observ ation record ed. [email or web address] Not Available 2023 08:55:31 Result Notes None recorded. Problems Name Problem SNOMED Code Status Onset Date Resolution Date Notes Provider Name and Address Organization Details Recorded Time Post-laminecto my syndrome 59641074 Active 2022 NOMAN WALLS null, [place] [facility] 11:46:54 Cervical post-laminecto my syndrome 817560513 Active 2023 Celso Ortiz MD [address] [facility],[address], [address], [place] [facility] 4 16:28:18 Lumbar radiculopathy 094721575 Active 2023 Celso Ortiz MD [address] [facility],[address], [address], [place] [facility] 4 16:28:19 Degeneration of lumbar intervertebral disc 12392725 Active 2023 Celso Ortiz MD [address] [facility],[address], [address], [place] [facility] 4 16:28:20 Lumbar post-laminecto my syndrome 597047471 Active 2023 Celso Ortiz MD [address] [facility],[address], [address], [place] [facility] 4 16:28:22 Cervical radiculopathy 18310043 Active 2023 Celso Ortiz MD [address] [facility],[address], [address], [place] [facility] 4 16:28:23 Degeneration of cervical intervertebral disc 95622848 Active 2023 Celso Ortiz MD [address] [facility],[place] [address], [place], [address], [place] [facility] 4 16:28:29 Problem Notes None recorded. Procedures Surgical History Date Name Laterality Status Provider Name and Address Organization Details Recorded Time 4 PUMP ADJUSTMENT completed TIKI MARTIN NP [address] [facility] [address], [place], [address], [place] [facility] 10/10/2023 13:44:27 Imaging Results None recorded. Procedure Notes None recorded. Medical Equipment None Reported. Allergies Allergen ID Allergen Name Allergen Category Reaction Reaction Severity Criticality Documentation Date Start Date Code Code System Note Provider Name and Address Organization Details Recorded Time 4607 Product containin g penicilli n (product) medicatio n Not available Not available Not available 09/24/2023 65024 8001 SNOMED MEGHAN LOVE null, [place] - [facility] 4 15:27:06 4608 morphine medicatio n Not available Not available Not available 09/24/2023 7052 RxNorm MEGHAN LOVE null, [place] [facility] 4 15:27:14 4609 Keflex medicatio n Not available Not available Not available 09/24/2023 68059 7 RxNorm MEGHAN LOVE null, [place] - [...] active Not Available Not Available Not Avai doris gnp century mature women 50+ tab 100ct [...] saturation in Arterial blood by Pulse oximetry Pain severity - 0-10 verbal numeric rating [Score] - Reported Systolic And Diastolic Provider Name and Address Organization Details Last Updated DateTime 4 170.18 cm 76 /min 32.9 kg/m2 18376.4 g 96 % 96 % 8 132/76 mm[Hg] MEGHAN LOVE [place] [facility] 15:26:52 Date Recorded Body height Heart rate Body mass index (BMI) Body weight Oxygen saturation Oxygen saturation in Arterial blood by Pulse oximetry Pain severity - 0-10 verbal numeric rating [Score] - Reported Systolic And Diastolic Provider Name and Address Organization Details Last Updated DateTime 4 170.18 cm 78 /min 32.9 kg/m2 57291.4 g 96 % 96 % 8 132/78 mm[Hg] [facility] [place] [facility] 4 12:32:47 Social History None recorded. Functional Status None recorded. Mental Status None recorded. Family History Nothing Reported. Medical History No medical history recorded. Gynecological HistoryNo gynecological history recorded. Obstetrics History GPAL:G 0 P 0 0 0 0 Past Encounters Encounter ID Performer Location Encounter Start Date Encounter Closed Date Diagnosis/Indication Diagnosis SNOMED-CT Code Diagnosis ICD10 Code Diagnosis IMO Codes Diagnosis Note [id number] Celso Ortiz MD [address] [place] [address] [place] [address] 09/24/2023 15:08:37 09/24/2023 16:20:47 Post-laminectomy syndrome 46739743 M96.1 Degenerati on of cervical intervertebral disc 11043343 M50.30 Cervical radiculopathy 99167985 M54.12 Lumbar post-laminectomy syndrome 643933659 M96.1 Degenerati on of lumbar intervertebral disc 49728377 M51.36 Lumbar radiculopathy 128 242478 M54.16 Cervical post-laminectomy syndrome 439502555 M96.1 [id number] TIKI MARTIN NP [address] [place] [address] 10/10/2023 12:19:48 10/10/2023 12:51:30 Lumbar radiculopathy 562736837 M54.16 Cervical post-laminectomy syndrome 875499671 M96.1 Lumbar post-laminectomy syndrome 764540404 M96.1 Degenerati on of lumbar intervertebral disc 61522471 M51.36 Post-shira ectomy syndrome 67458531 M96.1 Degenerati on of cervical intervertebral disc 86318491 M50.30 Cervical radiculopathy 02510719 M54.12 Health Concerns Section Related Observation LastModified by Organization Detai ls LastModified Time None Recorded Concern Status LastModified by Organization Details LastModified Time None Recorded Advance Directives Directive None Recorded Payers Insurance Date Sequence Insurance Name Policy Number Policy Lozano Covered Member ID Lozano Member ID Guarantor Name 04/18/2025 1 [place] [id number] Paige Kennedy [id number] Paige Kennedy 04/18/2025 1 [facility] (MEDICARE REPLACEMENT/A DVANTAGE - PPO) [id number] Paige Kennedy [id number] Paige Kennedy 04/18/2025 1 [place] Paige Kennedy [id number] Paige Kennedy Notes Date Note Type Note Provider Name and Address Organization Details Recorded Time 4 text/htm l Back PainReported by Patient Celso Ortiz MD [address] [facility] [address], [place], [address], [place] [facility] 09/24/2023 16:29:06 4 text/htm l Back PainReported by PatientHPIFor quality, patient reportssharp,aching, andthrobbing. For severity, patient reportsworsening,pain level 8/10, andsevere (8-10). For associated symptoms, patient reportsnumbness of the legs/feetandgait instabilitybut reportsno fever,no weak limbs,no tingling,no incontinence,no shortness of breath,no unintentional weight loss,no chills,no night sweats,no bowel/bladder symptoms, andno recent increase in stress. For location, patient reportscervicalandlumbar. For duration, patient reportschronic. For context, patient reportstraumaandprior back problems. For alleviating factors, patient reportsrest. For aggravating factors, patient reportsmovement/positioning, twisting,flexing back,extending back,worse at night,lifting,housework,walk ing,standing,sitting, andweather. For prior imaging, patient reportsemg. For onset/timing, (unknown).ROS as noted in the HPI TIKI MARTIN NP [address], [address], [place] [facility] 10/10/2023 13:49:17 OBGyn Episode No OBEpisode recorded.
--- OUTSIDE RECORDS SUMMARY | 2025-05-20 14:24 | XMS_ITS | Data Portability ---
Author Organization [facility] Address [address] [facility] [address] [place] [address] Care Team Providers Care Hand Molder And Caster Name Role Phone YURY ZAVALANichelle Zaragoza Primary [...] postop visit. Patient spent several weeks at [facility]. She is currently working with physical therapy [...] plan. -Seen by Dr. Friedman and myself [email or web address] Not available 01/27/2023 16:39:11 05/29/2023 05/29/2023 Mrs. [...] to see a plastic surgeon at the [facility] at the end of the month [...] is satisfied with this plan of care. [email or web address] Not available 10/25/2024 15:01:06 Plan of Treatment [...] By Organization Details Last Modified Time 01/27/2023 [id number] CATEGORY DESCRIPTION MINUTES Prepare to see the patient (e.g. review of tests) 5 Obtain/review separately obtained history 5 Perform medically appropriate exam/evaluation 5 Order medications, tests, or procedures Bitumastic Applier/educate the patient/family/car egiver 5 Refer/communicate w/other healthcare professionals 5 Document clinical information into health record 5 Non-billable independent interp of results Non-billable care coordination TOTAL TIME 30 77124 (15-29) 46080 (30-44) 85926 (45-59) 60275 (60-74) 18940 (10-19) 41656 (20-29) 60043 (30-39) 66319 (40-54) [email or web address] Not available 01/27/2023 16:39:21 Reason for Referral None Reported. Results Created Date Observation Date Name Description Value Unit Range Abnormal Flag Note LastModifiedBy Organization Detail LastModifiedTime 11/29/19 23 11/28/2022 XR, cervi chace spine , 2 or 3 view Kiesha [place] [facility] [address] [facility] [place] [address] Patien t Name: MARIA L ALEXANDRE ON [...] Leyda Arnold MD on 023 3:10 PM [email or web address] [facility] Radiology [facility] [address] [place] [address], [phone], 01/06/2023 13:17:08 01/28/20 23 01/27/2023 XR, cervi chace spine , 2 or [address] [place] [address] Patiesem t Name: MARIA L ALEXANDRE ON Maryanne [...] Leyda Arnold MD on 023 1:08 PM [email or web address] [facility] Radiology [facility] [address] [place], [address], 02/11/2023 06:39:11 05/29/20 23 05/29/2023 XR, cervi chace spine , 2 or 3 view [address] [place] [place] [address] Patien t Name: MARIA L ALEXANDRE ON [...] Leyda Arnold MD on 2022 11:38 AM [facility] Radiology [facility] [address] [place] [address], [phone], 06/13/2023 10:32:05 01/21/20 25 01/20/2025 imagi ng/di agnos tic resul t No observ ation record ed. Not Available 01/12 16:32:42 01/26/20 25 01/20/2025 MRI, cervi chace spine , w/o contr ast No observ ation record ed. [email or web address] [facility] [address], [place], [address], 02/15/2025 15:36:29 02/22/20 25 02/15/2025 CT, angio gram, neck, w/ contr ast No observ ation record ed. [email or web address] Not Available 2024 11:08:06 02/22/20 25 02/15/2025 CT, cervi chace spine , w/o contr ast No observ ation record ed. [email or web address] Not Available 2024 11:08:36 02/22/20 25 02/15/2025 CT, head, w/o contr ast No observ ation record ed. [email or web address] Not Available 2024 11:08:56 Result Notes Documentation Provider Name and Address Organization Details Recorded Time Xr, Cervical Spine, 2 Or 3 View : [place] [address] Patient Name: PAIGE KENNEDY Patient : 1960 [...] normal. Interpreted By: Sebastian Arnold MD [facility] 01/06/2023 13:17:08 Xr, Cervical Spine, 2 Or 3 View : [place] [address] Patient Name: PAIGE KENNEYD Patient : 1960 Patient Ordering Provider: FRANCISCA [...] spine. Interpreted By: Sebastian Arnold MD [facility] 02/11/2023 06:39:11 Xr, Cervical Spine, 2 Or 3 View : [place] [address] [place] [address] Patient Name: PAIGE KENNEDY Patient : 1960 [...] Interpreted By: Sebastian Arnold MD Kira Jose [facility] 06/13/2023 10:32:05 Problems Name Problem SNOMED Code Status Onset Date Resolution Date Notes Provider Name and Address Organization Details Recorded Time Degenerat ion of lumbar intervert ebral disc 48052683 Active 2014 From Automated Load;Provi alberto: Anabella Russo tus: Active Not Available [facility] 6 07:17:48 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 351346226 Active 2014 From Automated Load;Provi alberto: Melchor RussoSta tus: Active Not Available [facility] 6 07:17:48 Spondylol isthesis 352454947 Active 2014 From Automated Load;Provi alberto: Melchor RussoSta tus: Active Not Available [facility] 6 07:17:48 Pain in right lower limb 129870367 Active 2015 From Automated Load;Provi alberto: Francisca Friedman;St atus: Active Not Available [facility] 6 07:17:48 Clinical finding Active 2015 Provider: Casey Cesar;Statu s: Active Not Available [facility] 6 07:17:48 Lumbar radiculop athy 371893060 Active 2019 HELENA ZHONG PA-C [address] [place] [address], [address] , [facility] 0 13:59:06 Recurrent falls 897106701 Active 2019 HELENA ZHONG PA-C [address] [place], [address] , [facility] 0 13:59:07 Problem Notes None recorded. Medical Equipment None Reported. Allergies Allergen ID Allergen Name Allergen Category Reaction Reaction Severity Criticality Documentation Date Start Date Code Code System Note Provider Name and Address Organization Details Recorded Time 128401 morphine sulfate medicatio n Not available Not available Not available 06/06/20162009 43100 RxNorm Comme nt: Creat ed By: Karli Núñez ra;Cr eated Date: 2009 12:23 :36 PM; Not Available [facility] 6 10:13:45 328632 Keflex medicatio n Not available Not available Not available 06/06/20162009 06357 7 RxNorm Comme nt: Creat ed By: Karli Núñez ra;Cr eated Date: 2009 12:23 :12 PM; Not Available [facility] 6 14:24:18 445822 Product containin g penicilli n (product) medicatio n Not available Not available Not available 06/07/20162009 86274 8001 SNOMED Comme nt: Creat ed By: Karli Núñez ra;Cr eated Date: 2009 12:23 :20 PM; Not Available [facility] 6 04:55:17 Medications Name Sig Start Date [...] Updated DateTime 10/25/2024 171.45 cm 30.1 kg/m2 68201.51 g 124/74 mm[Hg] [facility] 10/25/2024 13:49:10 Date Recorded Body height Body mass index (BMI) Body weight Systolic And Diastolic Provider Name and Address Organization Details Last Updated DateTime 11/28/2022 171.45 cm 30.1 kg/m2 56200.51 g 142/82 mm[Hg] [facility] 11/28/2022 14:54:15 Date Recorded Body height Body mass index (BMI) Body weight Systolic And Diastolic Provider Name and Address Organization Details Last Updated DateTime 01/27/2023 171.45 cm 30.1 kg/m2 60270.51 g 114/68 mm[Hg] [facility] 01/27/2023 11:10:24 Date Recorded Body height Body mass index (BMI) Body weight Systolic And Diastolic Provider Name and Address Organization Details Last Updated DateTime 05/29/2023 171.45 cm 30.1 kg/m2 30476.51 g 120/80 mm[Hg] [facility] 05/29/2023 11:10:21 Social History None [...] ICD10 Code Diagnosis IMO Codes Diagnosis Note [id number] HELENA ZHONG PA-C [facility] [address] [place] [address] 05/01/2020 13:02:58 05/03/2020 21:07:25 Lumbar radiculopathy 984808661 M54.16 Recurrent falls 83554083 2 R29.6 [id number] CRISTIANO FERRARI APRN [facility] [address] [place] [address] 07/18/2022 09:57:38 07/19/2022 16:26:29 Lumbar radiculopathy 166771131 M54.16 Cervical spondylosis 387 726999 M47.812 [id number] FRANCISCA FRIEDMAN MD [facility] [address] [place] [address] 09/02/2022 14:35:26 09/03/2022 04:26:03 Spinal stenosis in cervical region 74837894 M48.02 [id number] FRANCISCA FRIEDMAN MD SURGERY SCHEDULE [address] [place] [address] 11/14/2022 11:28:25 11/14/2022 13:17:57 [id number] FRANCISCA FRIEDMAN MD [facility] [address] [place] [address] 11/28/2022 14:07:02 12/07/2022 04:43:35 Postoperative care 582303424 Z48.89 [id number] BRITNEY ZAVALA PA-C [facility] [address] [place] [address] 01/27/2023 10:41:22 01/28/2023 05:03:22 Cervical myelopathy 467203543 G95.9 [id number] FRANCISCA FRIEDMAN MD [facility] [address] [place] [address] 05/29/2023 10:52:59 05/30/2023 04:26:26 Postoperative care 808825060 Z48.89 [id number] CRISTIANOSHERRI STILESGREGORIO FERRARI, GLOBAL PROFESSIONAL [facility] [address] [place] [address] 10/25/2024 13:35:22 10/26/2024 05:04:13 Cervical spondylosis 609258887 M47.812 Mckeon's reflex positive 635425222 R29.2 Impairment of balance 38 5999274 R26.89 Poor manual dexterity 30 9873770 R29.898 Health Concerns Section Related Observation LastModified by Organization Detai ls LastModified Time None Recorded Concern Status LastModified by Organization Details LastModified Time None Recorded Advance Directives Directive None Recorded Payers Insurance Date Sequence Insurance Name Policy Number Policy Lozano Covered Member ID Lozano Member ID Guarantor Name 01/07/2025 1 [place] [id number] Paige Kennedy [id number] aPige Kennedy 08/24/2023 PAYMENT PLAN Paige Kennedy Notes Date Note Type Note Provider Name and Address Organization Details Recorded Time 11/28/2022 text/html ROS as noted in the HPI Mrs. Kennedy is a 62-year-old female that underwent an C3-C6 ACDF for cord compression. This was performed on October 30, 2022. She presents today for first postoperative visit with x-rays. FRANCISCA FRIEDMAN MD [facility] [place], [address], [facility] 12/06/2022 09:26:49 01/27/2023 text/html ROS as noted in the HPI Mrs. Kennedy is a 62-year-old female that underwent an C3-C6 ACDF for cord compression on October 30, [address] Friedman presents today for second postop visit. Patient spent several weeks at [facility]. She is currently working with physical therapy twice a week. She reports improvement of upper and lower extremity strength. She reports left neck pain that radiates down the arm and into the thumb. Dysphagia is improving. She continues to use a walker at home. She is in a wheelchair today. She has new x-rays today. BRITNEY ZAVALA PA-C [facility] [place], [address], [facility] 01/27/2023 16:39:32 05/29/2023 text/html ROS as noted in the HPI Mrs. Kennedy is a 63-year-old female that [...] headaches, unresponsive to Tylenol. FRANCISCA FRIEDMAN MD [facility] [place], [address], [facility] 05/29/2023 11:47:55 10/25/2024 text/html Ms. Kennedy is a 64-year-old female who returns to the office after last being seen 05/29/2023 with reports of continued and worsening posterior neck pain to her lateral left shoulder associated with numbness into her hands. She previously had a C3-6 ACDF for cord compression with Dr. Friedman on 10/30/2022. CRISTIANO FERRARI APRN [facility] [place], [address], [facility] 10/25/2024 15:01:40 OBGyn Episode No OBEpisode recorded.
--- OUTSIDE RECORDS SUMMARY | 2025-05-20 14:24 | XMS_ITS | Clinical Summary ---
Author Organization [employer] ([place], [place], [place], [place], [place]) Address [address] [place] [address] Care Team Providers Care Claims Customer Service Representative Name Role Phone Omar De La Torre MD Primary Care Provider [phone] Allergies Active Allergy Reactions Criticality Noted Date [...] Date Wild rded Speak language other than Chinese at home Not on file 08/01/2023 Want [...] 10/25/2022 11:11 AM EDT Plan of Treatment Health Maintenance [...] Risk Screening 07/14/2024 COVID-19 VACCINE (3 - season) 03/14/202503/2021, 07/11/2020 Influenza Vaccine (#1) 2025 Tobacco Cessation Counseling and Screening (12+) 10/25/2025 10/25/2024 Medical Devices Implanted Type Area Calibration Tester Device Identifier Shelf Expiration Date Model / Serial / Lot Bone Vivigen Formable Sm Bl-1600-001 - [id number] Implanted:Qty : 1 on 10/30/2022 by Duane Friedman MD at [facility] IMPLANTS N/A: Spine Cervical LIFENET:LIFENET TRANSPLANT SRV 10/11/2023 BL-1600-0 / [id number] / Cage Eit Cif H 5mm 8d S [id number] - [id number] Implanted:Qty : 1 on 10/30/2022 by Duane Friedman MD at [facility] IMPLANTS N/A: Spine Cervical J &J:DEPUY:DEPUY SPINE 01/10/2026 [id number] / / [id number] Cage Eit Cif H 5mm 8d S [id number] - [id number] Implanted:Qty : 1 on 10/30/2022 by Duane Friedman MD at [facility] IMPLANTS N/A: Spine Cervical J &J:DEPUY:DEPUY SPINE 07/13/2023 [id number] / / [id number] Cage Eit Cif H 5mm 8d S [id number] - [id number] Implanted:Qty : 1 on 10/30/2022 by Duane Friedman MD at [facility] IMPLANTS N/A: Spine Cervical J &J:DEPUY:DEPUY SPINE 01/10/2026 [id number] / / [id number] Plt Ant Skyln Hybrd Lvl3 45mm 1867-09-045 - [id number] Implanted:Qty : 1 on 10/30/2022 by Duane Friedman MD at [facility] IMPLANTS N/A: Neck J &J:DEPUY:DEPUY SPINE 1868-03-0 45 / 8-03-0 45 / Scr Skyln Vari Sd 18mm 50-018 - [id number] Implanted:Qty : 8 on 10/30/2022 by Duane Friedman MD at [facility] IMPLANTS N/A: Neck J &J:DEPUY:DEPUY SPINE 850-0 18 / [id number] / Insurance BLUE CROSS/BLUE SHIELD Advance Directives For more information, please contact: [phone] Documents on File Type Date Recorded Patient Qa Test Analyst Expl anation Advance Directives and Livin g Will 10/30/2022 6:04 AM * Full Code (Latest Code Status on File) Date Activated Date Inactivated Comments 10/30/2022 10:48 AM 11/04/2022 1:55 PM Care Teams Claims Customer Service Representative Relationship Specialty Start Date End Date Omar De La Torre MD [address] [place] [address] [place] [id number] PCP - General General Internal Medicine 10/16/22
--- OUTSIDE RECORDS SUMMARY | 2025-05-20 14:24 | XMS_ITS | Clinical Summary ---
Author Organization [facility] Address [address] [place] [address] Phone Care Team Providers Care Crepe Laminator Operator Name Role Phone Unavailable Unavailable Conditions or Problems No information available. Medications No information available. Medications Administered No information available. Allergies, Adverse Reactions, Alerts No information available. Results No information available. Plan of Care No information available. Procedures No information available. Vital Signs No information available. Immunizations No information available. Advance Directives No information available.
--- OUTSIDE RECORDS SUMMARY | 2025-05-20 14:24 | XMS_ITS | Clinical Summary ---
Author Organization [facility] Address [address] [place] [address] Care Team Providers Care Type Casting Machine Operator Name Role Phone Mason Cleaning MD Primary Care Provider [phone] Allergies Active Allergy Reactions Criticality Noted Date [...] Date Last Done Comments DXA SCAN 1960 COVID-19 Vaccine (#1) 1965 Pneumococcal Vaccine 50+ (1 of 2 - PCV) 1979 TDAP/TD VACCINES (1 - Tdap) 1979 MAMMOGRAM 2000 COLOGUARD 2005 COLON CANCER SCREENING 5 YEAR SIGMOIDOSCOPY 2005 COLONOSCOPY 2005 [address] CANCER SCREENING 2005 CT COLONOGRAPHY 2005 FECAL OCCULT BLOOD TEST 2005 FIT Testing (1 year) 2005 ZOSTER VACCINE (1 of 2) 2010 ANNUAL PHYSICAL 11/25/2016 HEPATITIS C SCREENING 11/25/2016 INFLUENZA VACCINE 02/11/2025 Insurance [employer] Care Teams Type Casting Machine Operator Relationship Specialty Start Date End Date Mason Cleaning MD [address] [facility] [address] ATTN: FE CARDOZO [id number] PCP - General Emergency Medicine 09/20/16
[2025-05-20 14:25] VITALS: BP 134/69; PULSE 74; RESP 16; TEMP 36.9; O2SAT 97; BMI 31.3
--- NOTE | 2025-05-20 14:25 | XR_ITS ---
FINAL REPORT CLINICAL HISTORY: fall and swelling to top of hand COMPARISON: None FINDINGS: LEFT WRIST Three views demonstrate no acute fracture. There is fusion hardware bridging the dorsal aspect of the distal radius to the 3rd metacarpal. A screw is noted bridging the 1st metacarpal phalangeal joint. There has been resection of the proximal carpal row and distal ulna. There is soft tissue edema over the dorsum of the hand. IMPRESSION: No acute bony abnormality. Postsurgical changes as above. Reviewed, Interpreted and Dictated by Houston Elizabeth MD Transcribed by Saan Shahid Authenticated and [facility]
--- NOTE | 2025-05-20 14:25 | XR_ITS ---
FINAL REPORT CLINICAL HISTORY: fall, swelling to top of hand COMPARISON: 04/14/2025 FINDINGS: LEFT HAND Three views demonstrate no acute fracture. There is fusion hardware bridging the dorsal aspect of the distal radius to the 3rd metacarpal. A screw is noted bridging the 1st metacarpal phalangeal joint. There has been resection of the proximal carpal row and distal ulna. There is soft tissue edema over the dorsum of the hand. The hand is held in flexion. IMPRESSION: No acute bony abnormality. Stable post surgical changes as above. Reviewed, Interpreted and Dictated by Houston Elizabeth MD Transcribed by Sana Shahid Authenticated and [facility]
--- NOTE | 2025-05-20 14:30 | ED_ITS ---
<Statement entered by Luis Miguel Hood MD - 05/20/25 15:53> I was consulted by the BRYAN, and we discussed the complexity of problems being addressed. I approved the treatment and management plan for this patient's care in the emergency department, thus performing a substantial portion of the medical decision making. I independently interpreted the plain film to demonstrate no fracture or dislocation Luis Miguel Hood MD Discharge Plan Disposition Chief Complaint: Extremity Injury, Upper Prescriptions Prescriptions: No Action cyanocobalamin (vitamin B-12) 1,000 mcg/mL solution 1,000 mcg IM MONTHLY Patient Comments: INJECT 1ML INTRAMUSCULARLY EVERY DAY FOR 7 DAYS THEN EVERY WEEK FOR 4 WEEKS THEN MONTHLY (DME) BD Luer-Filomena Syringe 3 mL 25 gauge x 1 syringe See Rx Instructions .ROUTE .MEDSUPPLY Qty: 1 Patient Comments: USE TO inject B12 Rx Instructions: As directed Nurtec ODT 75 mg tablet,disintegrating 75 mg PO DAILY PRN (Reason: Migraine Headache) Patient Comments: TAKE ONE TABLET UNDER THE TONGUE NEEDED FOR MIGRAINE DIRECTED (MAX OF 1 PER DAY) lorazepam 1 mg tablet 1 mg PO Q6H PRN (Reason: anxiety) Qty: 120 1RF lamotrigine 200 mg tablet 200 mg PO BID Patient Comments: TAKE ONE TABLET BY MOUTH TWICE DAILY alendronate 70 mg tablet 70 mg PO Patient Comments: TAKE ONE TABLET BY MOUTH ONCE A WEEK DIRECTED cholecalciferol (vitamin D3) 400 unit capsule 400 unit PO DAILY ascorbic acid (vitamin C) 500 mg tablet 500 mg PO DAILY furosemide 40 mg tablet 40 mg PO DAILY PRN (Reason: edema) Qty: 30 2RF tramadol 50 mg tablet 50 mg PO HS Qty: 30 2RF mupirocin 2 % ointment 1 applic topical BID 21 Days Qty: 22 1RF Mounjaro 5 mg/0.5 mL pen injector 5 mg SQ WEEKLY Qty: 2 1RF zolpidem 10 mg tablet 10 mg PO HS PRN (Reason: Sleep) Qty: 30 0RF Qulipta 60 mg tablet 60 mg PO DAILY Qty: 30 2RF ibuprofen 600 mg tablet 600 mg PO TID PRN (Reason: pain) 30 Days Qty: 90 1RF doxycycline hyclate 100 mg capsule 100 mg PO BID Qty: 30 0RF carvedilol 3.125 mg tablet 3.125 mg PO BID duloxetine 60 mg capsule,delayed release(DR/EC) 60 mg PO BID Rx Instructions: TAKE ONE CAPSULE BY MOUTH TWICE DAILY ketorolac 10 mg tablet 10 mg PO Q6H PRN (Reason: pain) Qty: 12 0RF Rx Instructions: maximum total duration of 5 days from all oral, intranasal, or parenteral f ormulations; tolerated IV formulation while admitted multivitamin Tablet 1 tab PO DAILY Referrals Follow up/Referrals: Omar De La Torre MD [Primary Care Provider, Medical] - See instructions Print Language Print Language: Croatian Discharge ED Provider: Luis Miguel Hood General Adult HPI General Chief complaint: Extremity Injury, Upper Stated complaint: AO- fall 05/19/25- pain in left hand Time Seen by Provider: 05/20/25 14:19 History of Present Illness HPI narrative: 65-year-old female presents to the ED today after last night falling back and landing on her left hand. She broke her hand back on February 15 and was seen by Ortho. She is afraid that she has reinjured her left hand and wrist. Patient says she fell partially on her back but did not hit her head. She has no pain in her back or head. She did not lose consciousness. She has no other pain other than her left hand and wrist. She does have some obvious swelling in her left hand. No other complaints. Related Data Home Medications ?Medication ?Instructions ?Recorded ?Confirmed ascorbic acid (vitamin C) 500 mg 500 mg PO DAILY Suppl ement 07/16/17 05/16/25 tablet cholecalciferol (vitamin D3) 10 400 unit PO DAILY Supp lement 07/16/17 05/16/25 mcg (400 unit) capsule multivitamin 1 tab PO DAILY suppleemnt 05/16/25 cyanocobalamin (vitamin B-12) 1,000 mcg IM MONTHLY 02/0305/16/25 1,000 mcg/mL injection solution syringe with needle 3 mL 25 gauge #1 ea 12/19/2305/16 x 1 (BD Luer-Filomena Syringe) rimegepant 75 mg disintegrating 75 mg PO DAILY PRN Gera robbie 04/05/24 05/16/25 tablet (Nurtec ODT) Headache carvedilol 3.125 mg tablet 3.125 mg PO BID 02/15/25 duloxetine 60 mg capsule,delayed 60 mg PO BID 02/15/25 05/16/25 release alendronate 70 mg tablet 70 mg PO 04/12/25 05/16/25 lamotrigine 200 mg tablet 200 mg PO BID 04/12/2505/16 Previous Rx's ?Medication ?Instructions ?Recorded atogepant 60 mg tablet (Qulipta) 60 mg PO DAILY #30 ta bs 12/05/23 furosemide 40 mg tablet 40 mg PO DAILY PRN edema #30 tabs 03/18/24 ketorolac 10 mg tablet 10 mg PO Q6H PRN pain #12 ta bs 02/17/25 ibuprofen 600 mg tablet 600 mg PO TID PRN pain 30 da ys #90 03/15/25 tabs lorazepam 1 mg tablet 1 mg PO Q6H PRN anxiety #120 tabs 03/17/25 tramadol 50 mg tablet 50 mg PO HS #30 tabs 5 mupirocin 2 % topical ointment 1 applic topical BID ce llultis 3 04/12/25 weeks #22 grams doxycycline hyclate 100 mg capsule 100 mg PO BID #30 c aps 04/15/25 tirzepatide 5 mg/0.5 mL 5 mg (0.5 mL) SQ WEEKLY #2 m L 05/16/25 subcutaneous pen injector (Romina) zolpidem 10 mg tablet 10 mg PO HS PRN Sleep #30 ta bs 05/16/25 Allergies Allergy/AdvReac Type Severity Reaction Status Date / Time cephalexin (From Keflex) Allergy Severe SERUM Verified 05/16/25 10:17 SICKNESS ; JOINTS LOCKED morphine Allergy Intermediate I-HIVES Verified 05/16/25 10:17 Penicillins Allergy Intermediate I-HIVES Verified 05/16/25 10:17 adhesive tape AdvReac Mild Unknown Verified 05/16/25 10:17 allergy reaction [facility] Disclaimer: The information contained in this section may have been updated after the patient was seen, as this information can be updated by other users. Medical History Diabetic foot Hearing loss Impacted cerumen of right ear Abnormal electrocardiography Acute postoperative anemia due to expected blood loss Coronary artery disease Degeneration of intervertebral disc of lumbar region Diabetes mellitus Diastolic dysfunction Hypertension Hypertensive heart disease Injury of right shoulder Osteoarthritis of left hip Post-laminectomy syndrome Right knee pain Right foot pain Fall Ulcer of right foot due to type 2 diabetes mellitus Postoperative edema Venous insufficiency of right lower extremity Hypokalemia UTI (urinary tract infection) Migraine aura, persistent, intractable, with status migrainosus Cast removal Pre-op evaluation Abnormal EKG Frequent falls Dysphagia, unspecified Iron deficiency anemia BMI 33.0-33.9,adult Urge incontinence Primary generalized (osteo)arthritis Constipation, unspecified Irritable bowel syndrome with diarrhea Gastro-esophageal reflux disease without esophagitis Venous insufficiency (chronic) (peripheral) Anxiety Migraine Urinary incontinence Diabetes mellitus, type 2 Hyperlipidemia Normal colonoscopy Hx of fracture of wrist x4 right Derangement of sacroiliac joint Fracture acetabulum-closed Acute postoperative anemia due to expected blood loss Diabetes Degenerative joint disease of left hip HHD (hypertensive heart disease) CAD (coronary artery disease) HTN (hypertension) Diastolic dysfunction Right knee pain Right shoulder injury Post laminectomy syndrome DDD (degenerative disc disease), lumbar Surgical History History of cholecystectomy History of hysterectomy History of knee replacement History of surgery on left wrist History of left hip replacement x2 Family History Other Fall Family history of diabetes mellitus type II Family hx-stroke Social History Smoking Status: Never smoker second hand exposure: No alcohol intake: never counseling provided: none substance use type: denies use current occupational status: unemployed Travel in the last 8 weeks?: None household members: spouse and family housing: house current occupation: [employer] current occupational exposures/hazards: No caffeine: Yes do you feel safe at home: Yes victim of physical abuse: No victim of emotional abuse: No victim of sexual abuse: No would you like helpful sources: No Have you lived/traveled outside [place] in past 30 days?: No Contact w/someone who lives/traveled outside US past 30 days?: No Exposure to someone with infectious disease in past 14 days?: No Do you have a fever (greater than 100.4 F or 38 C)?: No Have you tested positive for COVID-19?: No Exposed to someone with COVID-19 in past 14 days?: No Do you have a sore throat?: No Do you have a cough?: No Do you have any weakness?: No Do you have any diarrhea?: No Are you experiencing any unusual bleeding?: No Do you have any muscle aches/pain?: No Do you have any abdominal pain?: No Are you experiencing loss of taste or smell?: No Other Medical History Have you received the Flu Vaccine for this season: No Have you received the Pneumonia Vaccine: Yes ROS Obtained: Yes Systems reviewed as appropriate & no additional complaints except as documented Constitutional Constitutional: Reports as per HPI Physical Exam General General appearance: alert and in no apparent distress Head Head exam: normocephalic Eye Eye exam: Present PERRL and EOMI ENT ENT exam: Present normal oropharynx and mucous membranes moist Neck Neck exam: Present full ROM and trachea midline Respiratory Respiratory exam: Present normal lung sounds bilaterally Cardiovascular Cardiovascular exam: Present regular rate, normal rhythm, normal heart sounds, +S1 and +S2 Extremities Exam Extremities exam: Present normal inspection, full ROM, tenderness (Left hand) and normal capillary refill Back Exam Back exam: Present normal inspection Neurological Exam Neurological exam: Present alert and oriented X3 Skin Skin exam: Present warm and dry Medical Decision Making Medical Records Screening: Per USPSTF and CDC recommendations, given the prevalence of disease in our region, it is our hospital?s policy to screen for HIV and viral Hepatitis for all patients aged 18 and over and those with ongoing risk factors. Daniel Inquiry Pt receiving controlled substance: No Daniel was queried for this patient: No Vital Signs: 05/20/25 14:25 Temperature 98.4 F Temperature Source Oral Pulse Rate [Left] 74 Respiratory Rate 16 Blood Pressure [Right Arm] 134/69 Blood Pressure Mean [Right Arm] 90 Blood Pressure Source [Right Arm] Automatic Cuff Blood Pressure Position [Right Arm] Sitting 02 Sat by Pulse Oximetry 97 Oxygen Delivery Method Room Air Orders (Tests/Meds): ORDERS Category Date Time Status Hand XR left minimum 3 views [XR hand LT min 3V] Stat Exams 05/20/25 14:25 Completed Wrist XR left minimum 3 views [XR wrist LT min 3V] Stat Exams 05/20/25 14:25 Completed Medical Decision Narrative: patient is a 65-year-old female presenting to the emergency department for evaluation of left hand and wrist pain. Patient is hemodynamically stable and nontoxic-appearing upon arrival, afebrile. Differential diagnosis includes hand fracture versus sprain or strain. Workup will be conducted with specific imaging. Initial inventions include analgesics. Initial workup included x-rays of the left wrist and left hand. These were negative for anything acute. Patient will be placed in an Paras wrap for her left hand swelling and left wrist swelling. She and I discussed this. She can take ibuprofen and Tylenol for pain and swelling. Patient is safe for discharge home. Critical Care Critical Care Time Critical Care Time: No
[2025-05-20 15:00] VITALS: BP 125/75; PULSE 64; O2SAT 92
[2025-05-20 15:21] VITALS: BP 125/75; PULSE 92; RESP 18; TEMP 36.7; O2SAT 98
--- OUTSIDE RECORDS SUMMARY | 2025-05-29 19:00 | XMS_ITS | Clinical Summary ---
Author Organization Unknown Care Team Providers Care Grinding Machine Operator Automatic Name Role Phone LUCAS RUEDA, THOMAS Unavailable Unavailable RAMSEY RN, CRUZ Unavailable Unavailable VICTORIA PT, PLACIDO Unavailable Unavailable GUS GROCERY PACKER, DONAL Unavailable Unavailable VELASQUEZ OT, ISABELLA Unavailable Unavailable TALIA SW, BRODY Unavailable Unavailable INGA CALLAHANN, SWATHI Unavailable Unav ailable Payers Payer Name Policy Type Policy Number Effective Date Expira tion Date [facility] [id number] MEDICARE.[place] [id number] Problems Condition Name Condition Details Condition Category Status Onset Date Resolution Date Last Treatment Date Treating Clinician Comments ACUTE PAIN DUE TO TRAUMA Active 04-01 00:00: 00 PAIN IN RIGHT HIP Active 04-01 00:00: 00 OTH FX SECOND MC BONE, LEFT HAND, SUBS FOR FX W ROUTN HEAL Active 04-01 00:00: 00 LACERATION W/O FOREIGN BODY OF OTH PART OF HEAD, SUBS ENCNTR Active 04-01 00:00: 00 TYPE 2 DIABETES MELLITUS WITH DIABETIC NEUROPATHY, UNSP Active 04-01 00:00: 00 REPEATED FALLS Active 04-01 00:00: 00 PRIMARY GENERALIZED (OSTEO)ARTHR ITIS Active 04-01 00:00: 00 HYPERTENSIVE HEART DISEASE WITHOUT HEART FAILURE Active 04-01 00:00: 00 ATHSCL HEART DISEASE OF [place] CORONARY ARTERY W/O ANG PCTRS Active 04-01 00:00: 00 IRON DEFICIENCY ANEMIA, UNSPECIFIED Active 04-01 00:00: 00 Oth intvrt disc degen, lum rgn w/o lum bck or lw extrm pain Active 04-01 00:00: 00 ANXIETY DISORDER, UNSPECIFIED Active 04-01 00:00: 00 DEPRESSION, UNSPECIFIED Active 04-01 00:00: 00 UNSPECIFIED URINARY INCONTINENCE Active 04-01 00:00: 00 VENOUS INSUFFICIENC Y (CHRONIC) (PERIPHERAL) Active 04-01 00:00: 00 CONSTIPATION , UNSPECIFIED Active 04-01 00:00: 00 Irritable bowel syndrome, unspecified Active 04-01 00:00: 00 MIGRAINE, UNSP, NOT INTRACTABLE, WITHOUT STATUS MIGRAINOSUS Active 04-01 00:00: 00 HISTORY OF FALLING Active 04-01 00:00: 00 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 Ordering Clinician Indication Dosage Frequency Signature (SIG) Comments Components Qulipta 60 mg tablet - 00:00: 00 Yes [id number] MIGRAINE PREVENTION 1 tablet DAILY 1 tablet DAILY (route: oral) Med Classific ation: Central Nervous System Agents acetaminoph en 325 mg tablet 07-14 00:00: 00 Yes [id number] PAIN 2 tablet 2 TIMES DAILY 2 tablet 2 TIMES DAILY (route: oral) Med Classific ation: Analgesic , Anti-infl ammatory or Antipyret ic ascorbic acid (vitamin C) 500 mg tablet 07-14 00:00: 00 Yes [id number] SUPPLIMENT 1 tablet DAILY 1 tablet DAILY (route: oral) Med Classific ation: Electroly te Balance-N utritiona l Products carvedilol 3.125 mg tablet 07-14 00:00: 00 Yes [id number] HYPERTENTIO N 1 tablet 2 TIMES DAILY 1 tablet 2 TIMES DAILY (route: oral) Med Classific ation: Cardiovas cular Therapy Agents cholecalcif gilles (vitamin D3) 10 mcg (400 unit) capsule 07-14 00:00: 00 Yes [id number] SUPPLIMENT 1 capsule DAILY 1 capsule DAILY (route: oral) Med Classific ation: Electroly te Balance-N utritiona l Products duloxetine 60 mg capsule,del ayed release 07-14 00:00: 00 Yes [id number] ANTI PEPRESSENT 1 capsule 2 TIMES DAILY 1 capsule 2 TIMES DAILY (route: oral) Med Classific ation: Central Nervous System Agents furosemide 40 mg tablet 07-14 00:00: 00 Yes [id number] EDEMA 1 tablet NEEDED 1 tablet NEEDED (route: oral) Med Classific ation: Cardiovas cular Therapy Agents ketorolac 10 mg tablet 07-14 00:00: 00 Yes [id number] PAIN 1 tablet EVERY 6 HOURS 1 tablet EVERY 6 HOURS (route: oral) Med Classific ation: Analgesic , Anti-infl ammatory or Antipyret ic lorazepam 1 mg tablet 07-14 00:00: 00 Yes [id number] ANXIETY 1 tablet EVERY 6 HOURS 1 tablet EVERY 6 HOURS (route: oral) Med Classific ation: Central Nervous System Agents multivitami n tablet 07-14 00:00: 00 Yes [id number] SUPPLIMENT 1 tablet DAILY 1 tablet DAILY (route: oral) Med Classific ation: Electroly te Balance-N utritiona l Products Nurtec ODT 75 mg disintegrat ing tablet 07-14 00:00: 00 Yes [id number] MIGRAINES 1 tablet NEEDED 1 tablet NEEDED (route: oral) Med Classific ation: Central Nervous System Agents ondansetron 4 mg disintegrat ing tablet 07-14 00:00: 00 Yes [id number] NAUSEA 1 tablet EVERY 6 HOURS 1 tablet EVERY 6 HOURS (route: oral) Med Classific ation: Gastroint estinal Therapy Agents oxycodone-a cetaminophe n 5 mg-325 mg tablet 07-14 00:00: 00 Yes [id number] PAIN 1 tablet EVERY 4 HOURS 1 tablet EVERY 4 HOURS (route: oral) Med Classific ation: Analgesic , Anti-infl ammatory or Antipyret ic Ozempic 2 mg/dose (8 mg/3 mL) subcutaneou s pen injector 01-11 00:00: 00 Yes [id number] DIABETES 2 mg WEEKLY 2 mg WEEKLY (route: subcutaneo us) Med Classific ation: Endocrine sennosides 8.6 mg-docusate sodium 50 mg tablet 07-14 00:00: 00 Yes [id number] CONSTIPATIO N 1 tablet 2 TIMES DAILY 1 tablet 2 TIMES DAILY (route: oral) Med Classific ation: Gastroint estinal Therapy Agents Vital Signs Vital Name Observation Time Observation Value Commen ts Temperature 2025-05-11 15:42:00.000 98.3 [degF] Temperature 2025-05-05 12:40:00.000 97.6 [degF] Temperature 2025-04-29 11:54:00.000 97.6 [degF] Temperature 2025-04-27 13:17:00.000 97.1 [degF] Temperature 2025-04-22 14:47:00.000 96.9 [degF] Temperature 2025-04-20 12:56:00.000 98.3 [degF] Temperature 2025-04-19 13:20:00.000 97.6 [degF] Temperature 2025-04-15 16:48:00.000 98.6 [degF] Temperature 2025-04-13 16:31:00.000 98.6 [degF] Temperature 2025-04-08 11:12:00.000 97.6 [degF] Temperature 2025-04-05 13:05:00.000 98.3 [degF] Temperature 2025-04-01 12:26:00.000 98.5 [degF] BMI (%) 2025-04-01 12:07:37.000 32 kg/m2 Height 2025-04-01 12:07:32.000 67 [in_us] Pulse 2025-05-11 15:42:00.000 75 /min Pulse 2025-05-11 14:16:00.000 67 /min Pulse 2025-05-05 14:38:00.000 72 /min Pulse 2025-05-05 12:40:00.000 67 /min Pulse 2025-04-29 11:54:00.000 75 /min Pulse 2025-04-28 14:27:00.000 72 /min Pulse 2025-04-27 13:17:00.000 67 /min Pulse 2025-04-22 14:47:00.000 70 /min Pulse 2025-04-21 20:01:00.000 78 /min Pulse 2025-04-20 12:56:00.000 77 /min Pulse 2025-04-19 13:20:00.000 73 /min Pulse 2025-04-15 16:48:00.000 75 /min Pulse 2025-04-13 16:31:00.000 76 /min Pulse 2025-04-11 12:41:00.000 76 /min Pulse 2025-04-08 11:12:00.000 74 /min Pulse 2025-04-05 13:05:00.000 85 /min Pulse 2025-04-05 10:39:00.000 84 /min Pulse 2025-04-01 12:26:00.000 76 /min O2 Saturation (%) 2025-05-11 15:42:00.000 97 % O2 Saturation (%) 2025-05-11 14:16:00.000 97 % O2 Saturation (%) 2025-05-05 14:38:00.000 97 % O2 Saturation (%) 2025-04-28 14:27:00.000 96 % O2 Saturation (%) 2025-04-27 13:17:00.000 97 % O2 Saturation (%) 2025-04-21 20:01:00.000 96 % O2 Saturation (%) 2025-04-11 12:41:00.000 96 % O2 Saturation (%) 2025-04-05 13:05:00.000 96 % O2 Saturation (%) 2025-04-05 10:39:00.000 95 % O2 Saturation (%) 2025-04-01 12:26:00.000 94 % Respirations 2025-05-11 15:42:00.000 18 /min Respirations 2025-05-11 14:16:00.000 18 /min Respirations 2025-05-05 14:38:00.000 18 /min Respirations 2025-05-05 12:40:00.000 18 /min Respirations 2025-04-29 11:54:00.000 18 /min Respirations 2025-04-28 14:27:00.000 18 /min Respirations 2025-04-27 13:17:00.000 18 /min Respirations 2025-04-22 14:47:00.000 18 /min Respirations 2025-04-21 20:01:00.000 18 /min Respirations 2025-04-20 12:56:00.000 18 /min Respirations 2025-04-19 13:20:00.000 18 /min Respirations 2025-04-15 16:48:00.000 18 /min Respirations 2025-04-13 16:31:00.000 18 /min Respirations 2025-04-11 12:41:00.000 18 /min Respirations 2025-04-08 11:12:00.000 18 /min Respirations 2025-04-05 13:05:00.000 18 /min Respirations 2025-04-05 10:39:00.000 18 /min Respirations 2025-04-01 12:26:00.000 16 /min Weight (lbs) 2025-04-01 12:07:37.000 210 [lb_av] Systolic Blood Pressure 2025-05-11 15:42:00.000 126 mm [Hg] Systolic Blood Pressure 2025-05-11 14:16:00.000 136 mm [Hg] Systolic Blood Pressure 2025-05-05 14:38:00.000 130 mm [Hg] Systolic Blood Pressure 2025-05-05 12:40:00.000 140 mm [Hg] Systolic Blood Pressure 2025-04-29 11:54:00.000 132 mm [Hg] Systolic Blood Pressure 2025-04-28 14:27:00.000 140 mm [Hg] Systolic Blood Pressure 2025-04-27 13:17:00.000 132 mm [Hg] Systolic Blood Pressure 2025-04-22 14:47:00.000 134 mm [Hg] Systolic Blood Pressure 2025-04-21 20:01:00.000 124 mm [Hg] Systolic Blood Pressure 2025-04-20 12:56:00.000 137 mm [Hg] Systolic Blood Pressure 2025-04-19 13:20:00.000 118 mm [Hg] Systolic Blood Pressure 2025-04-15 16:48:00.000 121 mm [Hg] Systolic Blood Pressure 2025-04-13 16:31:00.000 132 mm [Hg] Systolic Blood Pressure 2025-04-11 12:41:00.000 140 mm [Hg] Systolic Blood Pressure 2025-04-08 11:12:00.000 122 mm [Hg] Systolic Blood Pressure 2025-04-05 13:05:00.000 130 mm [Hg] Systolic Blood Pressure 2025-04-05 10:39:00.000 120 mm [Hg] Systolic Blood Pressure 2025-04-01 12:26:00.000 118 mm [Hg] Diastolic Blood Pressure 2025-05-11 15:42:00.000 76 mm [Hg] Diastolic Blood Pressure 2025-05-11 14:16:00.000 70 mm [Hg] Diastolic Blood Pressure 2025-05-05 14:38:00.000 68 mm [Hg] Diastolic Blood Pressure 2025-05-05 12:40:00.000 72 mm [Hg] Diastolic Blood Pressure 2025-04-29 11:54:00.000 63 mm [Hg] Diastolic Blood Pressure 2025-04-28 14:27:00.000 74 mm [Hg] Diastolic Blood Pressure 2025-04-27 13:17:00.000 72 mm [Hg] Diastolic Blood Pressure 2025-04-22 14:47:00.000 70 mm [Hg] Diastolic Blood Pressure 2025-04-21 20:01:00.000 66 mm [Hg] Diastolic Blood Pressure 2025-04-20 12:56:00.000 68 mm [Hg] Diastolic Blood Pressure 2025-04-19 13:20:00.000 63 mm [Hg] Diastolic Blood Pressure 2025-04-15 16:48:00.000 63 mm [Hg] Diastolic Blood Pressure 2025-04-13 16:31:00.000 63 mm [Hg] Diastolic Blood Pressure 2025-04-11 12:41:00.000 76 mm [Hg] Diastolic Blood Pressure 2025-04-08 11:12:00.000 74 mm [Hg] Diastolic Blood Pressure 2025-04-05 13:05:00.000 72 mm [Hg] Diastolic Blood Pressure 2025-04-05 10:39:00.000 68 mm [Hg] Diastolic Blood Pressure 2025-04-01 12:26:00.000 60 mm [Hg] Plan of Treatment Planned Activity Planned Date Details Comments Future Scheduled Test RN TO OBSE RVE, ASSESS, EVALUATE, AND DEVELOP AN INDIVIDUALIZED PLAN OF CARE. AGENCY MAY ACCEPT ORDERS FROM CONSULTING PHYSICIANS. RN TO OBSERVE AND ASSESS, ELECTRICIAN APPRENTICE/DECORATOR MANNEQUIN TO OBSERVE FOR RISK FOR FALLS AND INSTRUCT IN FALL PREVENTION, HOME SAFETY, MEDICATION MANAGEMENT, INFECTION PREVENTION, AND NUTRITION MANAGEMENT. RN/ELECTRICIAN APPRENTICE/DECORATOR MANNEQUIN NURSE MAY PERFORM O2 SATURATION LEVEL ON ADMISSION AND PRN, FOR RN TO ASSESS/ELECTRICIAN APPRENTICE TO OBSERVE PATIENT, WITH NOTIFICATION TO THE PHYSICIAN IF SATURATION IS 90% IN THE ABSENCE OF MORE SPECIFIC PARAMETERS FROM THE PHYSICIAN. AGENCY MAY PERFORM A RESUMPTION OF CARE VISIT FOLLOWING ANY HOSPITAL ADMISSION. RN/ELECTRICIAN APPRENTICE/DECORATOR MANNEQUIN TO MONITOR CO-MORBID CONDITIONS LISTED ON THE PLAN OF CARE AND ANY NEW CONDITIONS THAT PRESENT THEMSELVES DURING THIS EPISODE TO IDENTIFY CHANGES AND INTERVENE TO MINIMIZE COMPLICATIONS. [code = RN TO OBSERVE, ASSESS, EVALUATE, AND DEVELOP AN INDIVIDUALIZED PLAN OF CARE. AGENCY MAY ACCEPT ORDERS FROM CONSULTING PHYSICIANS. RN TO OBSERVE AND ASSESS, ELECTRICIAN APPRENTICE/DECORATOR MANNEQUIN TO OBSERVE FOR RISK FOR FALLS AND INSTRUCT IN FALL PREVENTION, HOME SAFETY, MEDICATION MANAGEMENT, INFECTION PREVENTION, AND NUTRITION MANAGEMENT. RN/ELECTRICIAN APPRENTICE/DECORATOR MANNEQUIN NURSE MAY PERFORM O2 SATURATION LEVEL ON ADMISSION AND PRN, FOR RN TO ASSESS/ELECTRICIAN APPRENTICE TO OBSERVE PATIENT, WITH NOTIFICATION TO THE PHYSICIAN IF SATURATION IS 90% IN THE ABSENCE OF MORE SPECIFIC PARAMETERS FROM THE PHYSICIAN. AGENCY MAY PERFORM A RESUMPTION OF CARE VISIT FOLLOWING ANY HOSPITAL ADMISSION. RN/ELECTRICIAN APPRENTICE/DECORATOR MANNEQUIN TO MONITOR CO-MORBID CONDITIONS LISTED ON THE PLAN OF CARE AND ANY NEW CONDITIONS THAT PRESENT THEMSELVES DURING THIS EPISODE TO IDENTIFY CHANGES AND INTERVENE TO MINIMIZE COMPLICATIONS.] Future Scheduled Test MEDICATION MANAGEMENT; RN/ELECTRICIAN APPRENTICE/DECORATOR MANNEQUIN TO REVIEW MEDICATIONS FOR INTERACTIONS, EFFECTIVENESS OF DRUG THERAPY, AND SIGNS/SYMPTOMS OF ADVERSE REACTIONS. MAY INSTRUCT AND REINFORCE MEDICATION TEACHING RELATED TO THE USE OF MEDICATIONS, DOSAGE, FREQUENCY, PURPOSE, SIDE EFFECTS, AND TO REPORT COMPLICATIONS. [code = MEDICATION MANAGEMENT; RN/ELECTRICIAN APPRENTICE/DECORATOR MANNEQUIN TO REVIEW MEDICATIONS FOR INTERACTIONS, EFFECTIVENESS OF DRUG THERAPY, AND SIGNS/SYMPTOMS OF ADVERSE REACTIONS. MAY INSTRUCT AND REINFORCE MEDICATION TEACHING RELATED TO THE USE OF MEDICATIONS, DOSAGE, FREQUENCY, PURPOSE, SIDE EFFECTS, AND TO REPORT COMPLICATIONS.] Future Scheduled Test CARDIOVASC ULAR SYSTEM; RN TO ASSESS/TEACH, ELECTRICIAN APPRENTICE/DECORATOR MANNEQUIN TO OBSERVE/TEACH RELATED TO ALTERED CARDIOVASCULAR STATUS TO MINIMIZE COMPLICATIONS AND REDUCE HOSPITALIZATION. [code = CARDIOVASCULAR SYSTEM; RN TO ASSESS/TEACH, ELECTRICIAN APPRENTICE/DECORATOR MANNEQUIN TO OBSERVE/TEACH RELATED TO ALTERED CARDIOVASCULAR STATUS TO MINIMIZE COMPLICATIONS AND REDUCE HOSPITALIZATION.] Future Scheduled Test HYPERTENSI ON MANAGEMENT; RN TO ASSESS AND TEACH, ELECTRICIAN APPRENTICE/DECORATOR MANNEQUIN TO OBSERVE AND TEACH WARNING SIGNS AND SYMPTOMS TO AVOID HOSPITALIZATION. [code = HYPERTENSION MANAGEMENT; RN TO ASSESS AND TEACH, ELECTRICIAN APPRENTICE/DECORATOR MANNEQUIN TO OBSERVE AND TEACH WARNING SIGNS AND SYMPTOMS TO AVOID HOSPITALIZATION.] Future Scheduled Test SKIN INTEG RITY RN TO ASSESS AND TEACH, ELECTRICIAN APPRENTICE/DECORATOR MANNEQUIN TO OBSERVE AND TEACH INTEGUMENTARY STATUS TO IDENTIFY CHANGES AND INTERVENE TO MINIMIZE COMPLICATIONS. PROVIDE SKILLED TEACHING OF GENERAL WOUND AND SKIN CARE AND PREVENTION RELATED TO POTENTIAL FOR OR ACTUAL ALTERED SKIN INTEGRITY LEFT WRIST [code = SKIN INTEGRITY RN TO ASSESS AND TEACH, ELECTRICIAN APPRENTICE/DECORATOR MANNEQUIN TO OBSERVE AND TEACH INTEGUMENTARY STATUS TO IDENTIFY CHANGES AND INTERVENE TO MINIMIZE COMPLICATIONS. PROVIDE SKILLED TEACHING OF GENERAL WOUND AND SKIN CARE AND PREVENTION RELATED TO POTENTIAL FOR OR ACTUAL ALTERED SKIN INTEGRITY LEFT WRIST] Future Scheduled Test PAIN MANAG EMENT; RN TO ASSESS AND TEACH, DECORATOR MANNEQUIN/ELECTRICIAN APPRENTICE TO OBSERVE AND TEACH AND PROVIDE EDUCATION ON PAIN MANAGEMENT TECHNIQUES. [code = PAIN MANAGEMENT; RN TO ASSESS AND TEACH, DECORATOR MANNEQUIN/ELECTRICIAN APPRENTICE TO OBSERVE AND TEACH AND PROVIDE EDUCATION ON PAIN MANAGEMENT TECHNIQUES.] Future Scheduled Test PHYSICAL T HERAPIST TO EVALUATE FOR STRENGTHEN BALANCE [code = PHYSICAL THERAPIST TO EVALUATE FOR STRENGTHEN BALANCE] Future Scheduled Test OCCUPATION AL THERAPIST TO EVALUATE FOR INDEPENDENT A D L'S [code = OCCUPATIONAL THERAPIST TO EVALUATE FOR INDEPENDENT A D L'S] Future Scheduled Test PRN VISITS ; NUMBER OF RN/ELECTRICIAN APPRENTICE/DECORATOR MANNEQUIN VISITS: 2 RN/ELECTRICIAN APPRENTICE/DECORATOR MANNEQUIN TO PERFORM: PAIN ASSESSMENT FOR THE FOLLOWING REASONS: EXASERBATION TO PAIN ASSESSMENT [code = PRN VISITS; NUMBER OF RN/ELECTRICIAN APPRENTICE/DECORATOR MANNEQUIN VISITS: 2 RN/ELECTRICIAN APPRENTICE/DECORATOR MANNEQUIN TO PERFORM: PAIN ASSESSMENT FOR THE FOLLOWING REASONS: EXASERBATION TO PAIN ASSESSMENT] Future Scheduled Test AGENCY MAY PERFORM A RESUMPTION OF CARE VISIT FOLLOWING ANY HOSPITAL ADMISSION. PT TO EVALUATE, OBSERVE / ASSESS, AND MONITOR, GROCERY PACKER TO OBSERVE AND MONITOR, PROVIDE SKILLED THERAPEUTIC INTERVENTION, ACTIVITY, EDUCATION, AND TRAINING TO ADDRESS; PT/GROCERY PACKER TO PROVIDE GAIT TRAINING FOR IMPROVED MOBILITY AND /OR TO NORMALIZE GAIT PATTERN NEUROMUSCULAR RE-EDUCATION / BALANCE / POSTURAL CONTROL (PT) THERAPEUTIC EXERCISES AND ESTABLISHING A HOME EXERCISE PROGRAM (PT/GROCERY PACKER) SIT TO/FROM STAND TRANSFERS (PT/GROCERY PACKER) PT / GROCERY PACKER TO MONITOR AND EDUCATE ON OXYGEN SATURATION DURING ADLS/IADLS, NOTIFY PHYSICIAN AND/OR THE RN CLINICAL ARM REST BUILDER FOR PHYSICIAN NOTIFICATION AND IF O2 SATS BELOW PHYSICIAN ORDERED PARAMETERS AFTER 10 MIN OF REST PT / GROCERY PACKER TO INSTRUCT PATIENT/CAREGIVER ON RISK FOR HOSPITALIZATION/EMERGENCY ROOM VISITS, TEACH SIGNS AND SYMPTOMS THAT PUT PATIENT AT RISK, WHEN TO NOTIFY NURSE/PHYSICIAN OF COMPLICATIONS/DECLINE, AND WHEN TO CALL 911. PT/GROCERY PACKER TO IDENTIFY FALL RISK FACTORS; EDUCATE THE PATIENT/CAREGIVER ON WAYS TO REDUCE FALL RISK FACTORS AND ESTABLISH HOME EXERCISE PROGRAM TO MINIMIZE FALL RISK. MAY TEACH THE PATIENT FLOOR RECOVERY WHEN CLINICALLY APPROPRIATE OTHER SPORTS OFFICIAL TO EVALUATE FOR COMMUNITY SERVICES [code = AGENCY MAY PERFORM A RESUMPTION OF CARE VISIT FOLLOWING ANY HOSPITAL ADMISSION. PT TO EVALUATE, OBSERVE / ASSESS, AND MONITOR, GROCERY PACKER TO OBSERVE AND MONITOR, PROVIDE SKILLED THERAPEUTIC INTERVENTION, ACTIVITY, EDUCATION, AND TRAINING TO ADDRESS; PT/GROCERY PACKER TO PROVIDE GAIT TRAINING FOR IMPROVED MOBILITY AND /OR TO NORMALIZE GAIT PATTERN NEUROMUSCULAR RE-EDUCATION / BALANCE / POSTURAL CONTROL (PT) THERAPEUTIC EXERCISES AND ESTABLISHING A HOME EXERCISE PROGRAM (PT/GROCERY PACKER) SIT TO/FROM STAND TRANSFERS (PT/GROCERY PACKER) PT / GROCERY PACKER TO MONITOR AND EDUCATE ON OXYGEN SATURATION DURING ADLS/IADLS, NOTIFY PHYSICIAN AND/OR THE RN CLINICAL ARM REST BUILDER FOR PHYSICIAN NOTIFICATION AND IF O2 SATS BELOW PHYSICIAN ORDERED PARAMETERS AFTER 10 MIN OF REST PT / GROCERY PACKER TO INSTRUCT PATIENT/CAREGIVER ON RISK FOR HOSPITALIZATION/EMERGENCY ROOM VISITS, TEACH SIGNS AND SYMPTOMS THAT PUT PATIENT AT RISK, WHEN TO NOTIFY NURSE/PHYSICIAN OF COMPLICATIONS/DECLINE, AND WHEN TO CALL 911. PT/GROCERY PACKER TO IDENTIFY FALL RISK FACTORS; EDUCATE THE PATIENT/CAREGIVER ON WAYS TO REDUCE FALL RISK FACTORS AND ESTABLISH HOME EXERCISE PROGRAM TO MINIMIZE FALL RISK. MAY TEACH THE PATIENT FLOOR RECOVERY WHEN CLINICALLY APPROPRIATE OTHER SPORTS OFFICIAL TO EVALUATE FOR COMMUNITY SERVICES] Future Scheduled Test AGENCY MAY PERFORM A RESUMPTION OF CARE VISIT FOLLOWING ANY HOSPITAL ADMISSION. OT TO EVALUATE, OBSERVE / ASSESS, AND MONITOR, BANK PRESIDENT TO OBSERVE AND MONITOR, PROVIDE SKILLED THERAPEUTIC INTERVENTION, ACTIVITY, EDUCATION, AND TRAINING TO ADDRESS;SELF CARE PERFOMANCE, BALANCE, HOME SAFETY RECOMMENDATIONS, STRENGTH BATHING/SHOWERING (OT/YEISON) TOILETING HYGIENE (OT/YEISON) DRESSING (OT/YEISON) ACTIVITIES OF DAILY LIVING (OT/BANK PRESIDENT) TOILET TRANSFER (OT/YEISON) BATH/SHOWER TRANSFER (OT/YEISON) FALLS EDUCATION POSTURAL CONTROL/BALANCE (OT/BANK PRESIDENT) THERAPEUTIC EXERCISE (OT/YEISON) OT/YEISON TO MONITOR PATIENT WITH STABLE DEPRESSION ON SIGNS AND SYMPTOMS OF WORSENING DEPRESSION AND AVAILABLE RESOURCES INCLUDING [facility]. OT/YEISON MAY EDUCATE ON PAIN MANAGEMENT CLINICALLY INDICATED, INCLUDING NON-PHARMACOLOGICAL PAIN REDUCTION TECHNIQUES AND USE OF CRYOTHERAPY OR HEAT UP TO 20 MIN AT A TIME FOR PAIN MANAGEMENT [code = AGENCY MAY PERFORM A RESUMPTION OF CARE VISIT FOLLOWING ANY HOSPITAL ADMISSION. OT TO EVALUATE, OBSERVE / ASSESS, AND MONITOR, BANK PRESIDENT TO OBSERVE AND MONITOR, PROVIDE SKILLED THERAPEUTIC INTERVENTION, ACTIVITY, EDUCATION, AND TRAINING TO ADDRESS;SELF CARE PERFOMANCE, BALANCE, HOME SAFETY RECOMMENDATIONS, STRENGTH BATHING/SHOWERING (OT/BANK PRESIDENT) TOILETING HYGIENE (OT/YEISON) DRESSING (OT/YEISON) ACTIVITIES OF DAILY LIVING (OT/YEISON) TOILET TRANSFER (OT/BANK PRESIDENT) BATH/SHOWER TRANSFER (OT/YEISON) FALLS EDUCATION POSTURAL CONTROL/BALANCE (OT/BANK PRESIDENT) THERAPEUTIC EXERCISE (OT/BANK PRESIDENT) OT/BANK PRESIDENT TO MONITOR PATIENT WITH STABLE DEPRESSION ON SIGNS AND SYMPTOMS OF WORSENING DEPRESSION AND AVAILABLE RESOURCES INCLUDING [facility]. OT/YEISON MAY EDUCATE ON PAIN MANAGEMENT CLINICALLY INDICATED, INCLUDING NON-PHARMACOLOGICAL PAIN REDUCTION TECHNIQUES AND USE OF CRYOTHERAPY OR HEAT UP TO 20 MIN AT A TIME FOR PAIN MANAGEMENT] Future Scheduled Test MEDICAL SO CIAL SERVICES FOR COMMUNITY RESOURCE PLANNING. [code = MEDICAL ANIMAL GROOMER FOR COMMUNITY RESOURCE PLANNING.] Goal Patient Goal - BE INDEPENDEN T Goal Provider Goal - A PLAN OF CARE WILL BE ESTABLISHED THAT MEETS THE PATIENT S NEEDS. PATIENT WILL DEMONSTRATE OXYGEN SATURATION WITHIN NORMAL LIMITS OR PATIENT S OPTIMAL LEVEL ESTABLISHED BY THE PHYSICIAN THROUGHOUT CARE. CHANGES TO CO-MORBID CONDITIONS AND ANY NEW CONDITIONS WILL BE IDENTIFIED AND REPORTED TO THE PHYSICIAN. Goal Provider Goal - PATIENT/CAREGIVER TO VERBALIZE, AND CONSISTENTLY DEMONSTRATE EFFECTIVE, SAFE MANAGEMENT OF MEDICATION INCLUDING KNOWLEDGE OF EFFECTIVENESS, POTENTIAL SIDE EFFECTS AND DRUG REACTIONS AND WHEN TO CONTACT THE APPROPRIATE CARE PROVIDER. PATIENT/CAREGIVER WILL BE ABLE TO VERBALIZE UNDERSTANDING OF MEDICATION REGIMEN AND ACCURATELY TAKE MEDICATIONS PRESCRIBED WITHOUT ADVERSE EFFECTS BY 4 WEEKS. Goal Provider Goal - PATIENT / CAREGIVER WILL VERBALIZE/DEMONSTRATE UNDERSTANDING OF MEASURES TO MANAGE ALTERED CARDIOVASCULAR STATUS BY 3 WEEKS. Goal Provider Goal - PATIENT / CAREGIVER WILL VERBALIZE/DEMONSTRATE AN ABILITY TO ADHERE TO SELF-MANAGEMENT OF HTN TO MINIMIZE COMPLICATIONS AND AVOID HOSPITALIZATION BY END OF EPISODE. Goal Provider Goal - CHANGES IN SKIN INTEGRITY STATUS WILL BE IDENTIFIED AND REPORTED TO THE PHYSICIAN FOR PROMPT INTERVENTION. PATIENT / CAREGIVER WILL VERBALIZE/DEMONSTRATE ADEQUATE KNOWLEDGE OF INTEGUMENTARY STATUS AND APPROPRIATE MEASURES TO PROMOTE SKIN INTEGRITY AND PREVENT INJURY BY 2 WEEKS. Goal Provider Goal - PATIENT / CAREGIVER WILL VERBALIZE / DEMONSTRATE UNDERSTANDING OF PAIN CONTROL MEASURES BY 3 WEEKS. Goal Provider Goal - Goal Provider Goal - Goal Provider Goal - Goal Provider Goal - PT STG: PATIENT WILL DEMONSTRATE IMPROVED 6 MINUTE WALK TEST AMBULATION FROM 10 FT MIN TO 50 FT CGA WITH APPROPRIATE AD WITHIN 4 WEEKS. PT LTG: PATIENT WILL DEMONSTRATE IMPROVED 6 MINUTE WALK TEST AMBULATION FROM 10 FT MIN TO 300 FT IND WITH APPROPRIATE AD WITHIN 8 WEEKS. PT LTG: PATIENT WILL DEMONSTRATE REDUCED FALL RISK EVIDENCED BY TUG TEST (CUT SCORE >11 SECONDS INDICATES INCREASED FALL RISK) IMPROVING FROM UNABLE TO LESS THAN OR EQUAL TO 20 SECONDS WITHIN 8 WEEKS PT STG: PATIENT WILL DEMONSTRATE IMPROVEMENT ON CHAIR RISE TEST FROM 0 TO 2 INDICATING DECREASED FALL RISK WITHIN 4 WEEKS. PT LTG: PATIENT WILL DEMONSTRATE IMPROVEMENT ON CHAIR RISE TEST FROM 0 TO 5 INDICATING DECREASED FALL RISK WITHIN 8 WEEKS. PT LTG: PATIENT WILL DEMONSTRATE INDEPENDENCE AND COMPLIANCE WITH HEP WITHIN 4 WEEKS PT STG: PATIENT WILL DEMONSTRATE IMPROVED ABILITY TO PERFORM SIT TO/FROM STAND TRANSFERS TO REDUCE THE RISK OF SKIN BREAKDOWN AND REDUCE FALL RISK FROM MOD TO CGA WITHIN 4 WEEKS PT LTG: PATIENT WILL DEMONSTRATE IMPROVED ABILITY TO PERFORM SIT TO/FROM STAND TRANSFERS TO REDUCE THE RISK OF SKIN BREAKDOWN AND REDUCE FALL RISK FROM MOD TO IND WITHIN 8 WEEKS PT LTG: PATIENT WILL MAINTAIN OXYGEN SATURATION WITHIN PHYSICIAN ORDERED PARAMETERS THROUGHOUT EPISODE OF CARE. PT GOAL: PATIENT/CAREGIVER WILL VERBALIZE UNDERSTANDING OF SIGNS AND SYMPTOMS THAT PUT THE PATIENT AT RISK FOR HOSPITALIZATION /EMERGENCY ROOM VISITS, WHEN TO NOTIFY NURSE/PHYSICIAN OF COMPLICATIONS/DECLINE AND WHEN TO CALL 911. PT LTG: PATIENT/CAREGIVER WILL DEMONSTRATE ADHERENCE TO FALL REDUCTION SELF-MANAGEMENT AND REDUCING FALL RISK FACTORS TO MINIMIZE FALL RISK BY END OF EPISODE. Goal Provider Goal - OT STG: PATIENT WILL DEMONSTRATE IMPROVED ABILITY TO PERFORM BATHING/SHOWERING AND REDUCE CAREGIVER BURDEN FROM MODERATE A TO CGA WITHIN 6 WEEKS OT LTG: PATIENT WILL DEMONSTRATE IMPROVED ABILITY TO PERFORM BATHING/SHOWERING AND REDUCE CAREGIVER BURDEN FROM MODERATE A TO INDEPENDENT WITHIN 8 WEEKS OT LTG: PATIENT WILL DEMONSTRATE IMPROVED ABILITY TO PERFORM TOILET HYGIENE AND CLOTHING ADJUSTMENT TO REDUCE THE RISK OF DEVELOPING A UTI FROM MINIMAL A TO INDEPENDENT WITHIN 4 WEEKS OT STG: PATIENT WILL DEMONSTRATE IMPROVED ABILITY TO PERFORM LOWER BODY DRESSING TO REDUCE CAREGIVER BURDEN FROM MINIMAL A TO SBA WITHIN 4 WEEKS OT LTG: PATIENT WILL DEMONSTRATE IMPROVED ABILITY TO PERFORM LOWER BODY DRESSING TO REDUCE CAREGIVER BURDEN FROM MINIMAL A TO INDEPENDENT WITHIN 6 WEEKS OT LTG: PATIENT WILL DEMONSTRATE IMPROVEMENT IN MODIFIED DANIEL INDEX SCORE FROM 75 TO 96 INDICATING DECREASED DEPENDENCY ON CAREGIVER ASSISTANCE WITH ACTIVITIES OF DAILY LIVING WITHIN 8 WEEKS OT LTG: PATIENT WILL DEMONSTRATE IMPROVED ABILITY TO PERFORM TOILET TRANSFERS TO REDUCE FALL RISK AND RISK OF INCONTINENCE AND UTI DEVELOPMENT FROM MINIMAL A TO INDEPENDENT WITHIN 4 WEEKS OT STG: PATIENT WILL DEMONSTRATE IMPROVED ABILITY AND SAFETY TO PERFORM BATH/SHOWER TRANSFER FROM MINIMAL A TO CGA WITHIN 5 WEEKS OT LTG: PATIENT WILL DEMONSTRATE IMPROVED ABILITY AND SAFETY TO PERFORM BATH/SHOWER TRANSFER FROM MINIMAL A TO INDEPENDENT WITHIN 8 WEEKS OT LTG: PATIENT WILL DEMONSTRATE DECREASED FEAR OF FALLING DURING ADL/IADL TASKS VIA EDUCATION ON METHODS AND TECHNIQUES TO REDUCE FALLS WITHIN 8 WEEKS OT STG: PATIENT WILL DEMONSTRATE IMPROVED POSTURAL CONTROL AND DECREASED FALL RISK EVIDENCED BY AN IMPROVEMENT IN FUNCTIONAL REACH SCORE FROM 5 IN TO 8 IN WITHIN 6 WEEKS IN ORDER TO PERFORM SELF CARE TASKS OT LTG: PATIENT WILL DEMONSTRATE IMPROVED POSTURAL CONTROL AND DECREASED FALL RISK EVIDENCED BY AN IMPROVEMENT IN FUNCTIONAL REACH SCORE FROM 5 IN TO 10 IN WITHIN 8 WEEKS IN ORDER TO PERFORM SELF CARE TASKS OT STG: PATIENT WILL INCREASE RUE STRENGTH FROM 3-/5 TO 3+/5 IN ORDER TO PERFORM ADL AND IADL TASKS WITHIN 6 WEEKS OT LTG: PATIENT WILL INCREASE RUE STRENGTH FROM 3-/5 TO 4/5 IN ORDER TO PERFORM ADL AND IADL TASKS INDEPENDENTLY WITHIN 8 WEEKS OT LTG: PATIENT WILL PERFORM HER LUE HAND HEP FROM UNABLE TO INDEPENDENT WITHIN 8 WEEKS OT GOAL: EARLY IDENTIFICATION OF WORSENING DEPRESSION WITH TIMELY SN AND/OR PHYSICIAN NOTIFICATION. OT LTG: PATIENT WILL DEMONSTRATE UNDERSTANDING OF PAIN MANAGEMENT TECHNIQUES EVIDENCED BY REDUCED PAIN IN LEFT SHLDR, RIGHT GROIN AREA TO 2/10 Goal Provider Goal - PATIENT / CAREGIVER WILL DEMONSTRATE EFFECTIVE COMMUNITY RESOURCE PLANNING, EVIDENCED BY ACCEPTANCE OF ASSISTANCE FROM THOSE SERVICES FOR WHICH THEY ARE ELIGIBLE, EXTENDING THE PERIOD OF INDEPENDENCE IN THE HOME. Encounters Start Date/Time End Date/Time Encounter Type Admission Type Attending [facility] Care Department Encounter ID Discharge Date Discharge Status Discharge Condition Discharge Reason Percent Goals Met 2025-04-01 00:00:00 2025-05-30 00:00:00 Outpatient PLACIDO [facility] [id number] 43.24
== END 2025-05-20 15:22 | disposition home or self-care (01) ==
PROVIDERS: Emergency Provider Emergency Medicine; PCP Internal Medicine
DX: S63.92XA Sprain of unspecified part of left wrist and hand, initial encounter (principal); W19.XXXA Unspecified fall, initial encounter
CPT/HCPCS: 73110; 73130; 99284

== ENCOUNTER 2025-06-06 14:24 | Outpatient (CLI) | payer MEDICARE, SELFPAY ==
--- NOTE | 2025-06-06 14:25 | XR_ITS ---
FINAL REPORT CLINICAL HISTORY: left shoulder pain FINDINGS: 2 views of the left shoulder were obtained. There is no prior exam for comparison. There is no fracture or dislocation. Degenerative joint disease at both the glenohumeral and acromioclavicular joints. Soft tissues are unremarkable. IMPRESSION: No acute osseous abnormality of the left shoulder. Degenerative changes. Reviewed, Interpreted and Dictated by Elisabeth Casarez MD Transcribed by Sana Shahid Authenticated and [facility]
--- NOTE | 2025-06-06 14:25 | XR_ITS ---
FINAL REPORT CLINICAL HISTORY: left hand pain COMPARISON: 05/20/2025 FINDINGS: AP, oblique, and lateral views of the left hand were obtained. Again seen are postoperative changes of fusion of the radiocarpal bones and 3rd metacarpal. There is also a surgical screw fusing the 1st metacarpal joint. Distal ulna has been resected. Lucency surrounding the distal aspect of the surgical plate within the 3rd metacarpal measures 2-3 mm and is unchanged. Along the ulnar side of the proximal right 3rd metacarpal shaft is a cortical irregularity, unchanged. The distal most screw within the plate is fractured but unchanged. No new osseous abnormality identified. There continues to be soft tissue edema. IMPRESSION: Stable lucency surrounding the distal aspect of the surgical plate. Loosening not excluded. Fracture of the distal screw associated with the plate, also unchanged. Persistent soft tissue edema. Reviewed, Interpreted and Dictated by Elisabeth Casarez MD Transcribed by Sana Shahid Authenticated and [facility]
== END 2025-06-06 23:59 | disposition home or self-care (01) ==
LOC: RAD 14:25
PROVIDERS: PCP Internal Medicine; Visit Provider Physician Assistant Surgical
DX: S63.92XA Sprain of unspecified part of left wrist and hand, initial encounter; S66.912A Strain of unspecified muscle, fascia and tendon at wrist and hand level, left hand, initial encounter; X58.XXXA Exposure to other specified factors, initial encounter; M19.012 Primary osteoarthritis, left shoulder; T84.113A Breakdown (mechanical) of internal fixation device of bone of left forearm, initial encounter
CPT/HCPCS: 73030; 73130

== ENCOUNTER 2025-06-29 15:45 | Outpatient (CLI) | payer MEDICARE, SELFPAY ==
[2025-06-29 17:21] LABS: Hematocrit 37.4 % (37.0-47.0); Hemoglobin 11.7 g/dL (12.2-16.2); Immature Granulocytes % 0 %; Mean Corpuscular HGB Conc 31.3 g/dL (31.8-35.4); Mean Corpuscular Hemoglobin 29.4 pg (27.0-31.2); Mean Corpuscular Volume 94.0 fl (81-99); Nucleated Red Blood Cells % 0 %; Platelet Count 243 K/mm3 (142-424); Red Blood Count 3.98 M/mm3 (4.20-5.40); Red Cell Distribution Width-SD 43.8 fL; White Blood Count 3.6 K/mm3 (4.8-10.8)
[2025-06-29 18:08] LABS: Alanine Aminotransferase 20 U/L (12-78); Albumin Level 4.3 g/dl (3.5-5.0); Albumin/Globulin Ratio 1.7 (1.1-1.8); Alkaline Phosphatase 88 U/L (38-126); Anion Gap 9.9 mEq/L (5-15); Aspartate Amino Transferase 34 U/L (14-36); Bilirubin,Total 0.6 mg/dl (0.2-1.3); Blood Urea Nitrogen 16 mg/dl (7-17); Calcium 9.5 mg/dl (8.4-10.2); Carbon Dioxide 32 mmol/L (22.0-30.0); Chloride 101 mmol/L (98-107); Cholesterol 142 mg/dl (140-200); Creatinine,Serum 0.70 mg/dl (0.52-1.04); Estimated Glomerular Filt Rate 84 ml/min (>60); GFR (African American) 102 ML/MIN (>60); Globulin 2.6 g/dL (1.3-3.2); Glucose 92 mg/dl (74-100); HDL Cholesterol 83 mg/dl (40-60); Potassium 3.9 mmoL/L (3.5-5.1); Sodium 139 mmol/L (136-145); Total Protein,Serum 6.9 g/dl (6.3-8.2); Triglycerides 57 mg/dl (30-150)
[2025-06-29 18:57] LABS: Hemoglobin A1C 5.3 % (4.0-6.0)
--- OUTSIDE RECORDS SUMMARY | 2025-06-30 12:07 | XMS_ITS | Referral Summary ---
Author Organization [employer] ([place], [place], [place], [place], [place]) Address [address] [place] [address] Care Team Providers Care Tire Fabric Impregnating Range Tender Name Role Phone Omar De La Torre MD Primary Care Provider [phone] Jose Ortega MD Unavailable [phone] Allergies Active Allergy Reactions Criticality Noted [...] Date Wild rded Speak language other than Tajik at home Not on file 08/01/2023 Want [...] on file Medical Devices Implanted Type Area Laundrette Owner Device Identifier Shelf Expiration Date Model / Serial / Lot Bone Vivigen Formable Bl-1600-001 - [id number] Implanted:Qty : 1 on 10/30/2022 by Duane Friedman MD at [facility] IMPLANTS N/A: Spine Cervical LIFENET:LIFENET TRANSPLANT SRV 10/11/2023 BL-1600-0 01 / [id number] / Cage Eit Cif H 5mm 8d S [id number] - [id number] Implanted:Qty : 1 on 10/30/2022 by Duane Friedman MD at [facility] IMPLANTS N/A: Spine Cervical J &J:DEPUY:DEPUY SPINE 01/10/2026 [id number] / / [id number] Cage Eit Cif H 5mm 8d S [id number] - [id number] Implanted:Qty : 1 on 10/30/2022 by Duane Friedman MD at [facility] IMPLANTS N/A: Spine Cervical J &J:DEPUY:DEPUY SPINE 07/13/2023 [id number] / / [id number] Cage Eit Cif H 5mm 8d S [id number] - [id number] Implanted:Qty : 1 on 10/30/2022 by Duane Friedman MD at [facility] IMPLANTS N/A: Spine Cervical J &J:DEPUY:DEPUY SPINE 01/10/2026 [id number] / / [id number] Plt Ant Skyln Hybrd Lvl3 45mm 1868-03-045 - [id number] Implanted:Qty : 1 on 10/30/2022 by Duane Friedman MD at [facility] IMPLANTS N/A: Neck J &J:DEPUY:DEPUY SPINE 0 45 / 45 / Scr Skyln Vari Sd 18mm 1867-50-018 - [id number] Implanted:Qty : 8 on 10/30/2022 by Duane Friedman MD at [facility] IMPLANTS N/A: Neck J &J:DEPUY:DEPUY SPINE 0 18 / 18 / Insurance BLUE CROSS/BLUE SHIELD Advance Directives For more information, please contact: [phone] Documents on File Type Date Recorded Patient Accounting Professor Expl anation Advance Directives and Livin g Will 10/30/2022 6:04 AM * Full Code (Latest Code Status on File) Date Activated Date Inactivated Comments 10/30/2022 10:48 AM 11/04/2022 1:55 PM Care Teams Tire Fabric Impregnating Range Tender Relationship Specialty Start Date End Date Omar De La Torre MD [address] [place] [address] PCP - General General Internal Medicine 10/16/22 Jose Ortega MD [facility] [address] [place] [address] Neurology 06/27/25
--- OUTSIDE RECORDS SUMMARY | 2025-06-30 12:07 | XMS_ITS | Clinical Summary ---
Author Organization [facility] Address [address] [place] [address] Care Team Providers Care Bowling Alley Operator Name Role Phone Omar De La Torre MD Primary Care Provider [phone] Allergies Active Allergy Reactions Criticality Noted Date [...] FINISH ALL MEDICINE -- Active HYDROcodone-acetam inophen ([place]) 7.5-325 MG tablet TAKE ONE TABLET BY [...] (11/13/2021): Added automatically from request for surgery [id number] Depression with anxiety 02/13/2021 Generalized OA 02/13/2021 [...] Type Department Care Team Description 06/28/2025 Telephone [facility] [address] [place] [address] João Reyes MD HCN - Patient Message 06/07/2025 Telephone [facility] [address] [place] [address] João Reyes MD HCN - Patient Message 04/26/2025 10:40 AM EDT Office Visit [facility] [address] [place] [address] João Reyes MD 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); Hand pain, left 04/26/2025 10:25 AM EDT - 04/26/2025 11:59 PM EDT Hospital Encounter [facility] X-Ray [address] [place] [address] Hand pain, left Discharge Disposition: [...] Description 07/19/2025 8:40 AM EST Office Visit [facility] [address] [place] [address] João Reyes MD [address] [place] [address] Health Maintenance Due Date Last Done [...] 2010 UKY-Zoster Vaccines (1 of 2) 2010 GPB-[id number]-96 Vaccine (3 - Pfizer risk series) 09/19/2020 [...] Johanne Grimes Medical Devices Implanted Type Area Ice Handler Device Identifier Shelf Expiration Date Model / [...] ORDERABLES Final R esult Performing Organization Address City/[facility]/ZIP Co de Phone Number HEALTHCARE LAB [address] [place] [address] * [place] Hepatitis C Antibody (02/12/2021 8:20 PM EDT) [facility] Signature Hepatitis C Antibody Negative Negative 02/12/2021 10:17 PM EDT [facility] Blood Venous blood specimen / Unknown Venipuncture / Unknown 02/12/2021 8:20 PM EDT 02/12/2021 8:34 PM EDT us Joanne Umaña MD LAB BLOOD ORDERABLES Final Res ult Performing Organization Address [facility] Co de Phone Number HEALTHCARE LAB [address] [place] [address] from Last 3 Months or Most Recently Relevant to Health Maintenance Insurance [facility] MEDICARE Advance Directives * Full Code (Latest Code Status on File) Date Activated Date Inactivated Comments 02/13/2021 4:57 AM 02/21/2021 4:22 PM Question Answer Comments Patient has decision-making capacity? Yes * Full Code Date Activated Date Inactivated Comments 01/18/2021 4:57 PM 02/05/2021 4:59 PM Question Answer Comments Patient has decision-making capacity? Yes Care Teams Bowling Alley Operator Relationship Specialty Start Date End Date Omar De L aTorre MD [address] [facility] [address] [place] [address] PCP - General 11/24/20
--- OUTSIDE RECORDS SUMMARY | 2025-06-30 12:07 | XMS_ITS | Clinical Summary ---
Author Organization [facility] ([place], [place], [place], [place], [place]) Address [address] [place] [address] Care Team Providers Care Child Care Provider Name Role Phone Omar De La Torre MD Primary Care Provider [phone] Jsoe Ortega MD Unavailable [phone] Allergies Active Allergy Reactions Criticality Noted [...] Date Wild rded Speak language other than Icelandic at home Not on file 08/01/2023 Want [...] 10/25/2025 10/25/2024 Medical Devices Implanted Type Area Rigger Up Device Identifier Shelf Expiration Date Model / Serial / Lot Bone Vivigen Formable Sm Bl-1600-001 - [id number] Implanted:Qty : 1 on 10/30/2022 by Duane Friedman MD at [facility] IMPLANTS N/A: Spine Cervical LIFENET:LIFENET TRANSPLANT SRV 10/11/2023 BL-1600-0 01 / [id number] / Cage Eit Cif H 5mm 8d S [id number] - [id number] Implanted:Qty : 1 on 10/30/2022 by Duane Friedman MD at [facility] IMPLANTS N/A: Spine Cervical J &J:DEPUY:DEPUY SPINE 01/10/2026 [id number] / / [id number] Cage Eit Cif H 5mm 8d S [id number] - [id number] Implanted:Qty : 1 on 10/30/2022 by Duane Friedman MD at [facility] IMPLANTS N/A: Spine Cervical J &J:DEPUY:DEPUY SPINE 07/13/2023 [id number] / / [id number] Cage Eit Cif H 5mm 8d S [id number] - [id number] Implanted:Qty : 1 on 10/30/2022 by Duane Friedman MD at [facility] IMPLANTS N/A: Spine Cervical J &J:DEPUY:DEPUY SPINE 01/10/2026 [id number] / / [id number] Plt Ant Skyln Hybrd Lvl3 45mm 1867-09-045 - [id number] Implanted:Qty : 1 on 10/30/2022 by Duane Friedman MD at [facility] IMPLANTS N/A: Neck J &J:DEPUY:DEPUY SPINE 1867-03-0 45 / 03-0 45 / Scr Skyln Vari Sd 18mm 50-018 - [id number] Implanted:Qty : 8 on 10/30/2022 by Duane Friedman MD at [facility] IMPLANTS N/A: Neck J &J:DEPUY:DEPUY SPINE 50-0 18 / 50-0 18 / Insurance Arnoldo [place] [id number] BLUE CROSS/BLUE SHIELD Advance Directives For more information, please contact: [phone] Documents on File Type Date Recorded Patient Acid Bath Mixer Expl anation Advance Directives and Livin g Will 10/30/2022 6:04 AM * Full Code (Latest Code Status on File) Date Activated Date Inactivated Comments 10/30/2022 10:48 AM 11/04/2022 1:55 PM Care Teams Child Care Provider Relationship Specialty Start Date End Date Omar De La Torre MD [address] [facility] [address] [place] [address] PCP - General General Internal Medicine 10/16/22 Jose Ortega MD [address] [facility] [address] [place] [address] Neurology 06/27/25
--- OUTSIDE RECORDS SUMMARY | 2025-06-30 12:07 | XMS_ITS | Encounter Summary ---
Author Organization [facility] Address [address] [place] [address] Care Team Providers Care Pile Driver Operator Helper Name Role Phone Omar De La Torre MD Primary Care Provider [phone] Reason for Visit * Reason Onset Date Comments HCN - Patient Message 06/07/2025 Encounter Details Date Type Department Care Team (Late st Contact Info) Description 06/07/2025 Telephone [facility] [address] [place] [address] João Reyes MD [address] [address] HCN - Patient Message Social [...] went yesterday to doctor Best contact number: [phone] Optimal time of day to reach caller: ANYTIME Additional comments/information from caller: None Note: Please do not reply to this message. Follow-up communication and further actions as a result of this message need to be communicated with the patient directly, if the patient is not active onMyChart. If the patient is active on MyChart, they will receive notification of the communication/outcome via [employer] Solution[employer]. documented in this encounter Plan of Treatment Upcoming Encounters Date Type Department Care Team (Late st Contact Info) Description 07/19/2025 8:40 AM EST Office Visit [facility] [address] [place] [address] João Reyes MD [address] [address] documented as of this encounter Goals Goal [...] documented as of this encounter Care Teams Pile Driver Operator Helper Relationship Specialty Start Date End Date Omar De La Torre MD [facility] [address] [place] [address] PCP - General 11/24/20 documented as of this encounter
--- OUTSIDE RECORDS SUMMARY | 2025-06-30 12:07 | XMS_ITS | Clinical Summary ---
Author Organization [facility] Address [address] [facility] [address] [place] [address] Phone Care Team Providers Care Stem Crusher Name Role Phone Unavailable Unavailable Conditions or Problems No information available. Medications No information available. Medications Administered No information available. Allergies, Adverse Reactions, Alerts No information available. Results No information available. Plan of Care No information available. Procedures No information available. Vital Signs No information available. Immunizations No information available. Advance Directives No information available.
--- OUTSIDE RECORDS SUMMARY | 2025-06-30 12:07 | XMS_ITS | Encounter Summary ---
Author Organization [facility] Address [address] [place] [address] Care Team Providers Care Summer Counselor Name Role Phone Omar De La Torre MD Primary Care Provider [phone] Reason for Visit * Reason Onset Date Comments HCN - Patient Message 06/28/2025 Encounter Details Date Type Department Care Team (Late st Contact Info) Description 06/28/2025 Telephone [facility] [address] [place] [address] João Reyes MD [address] [address] HCN - Patient Message Social [...] in soon. Please advise. Best contact number: [phone] (mobile) Optimal time of day to reach caller: ANYTIME Additional comments/information from caller: None Note: Please do not reply to this message. Follow-up communication and further actions as a result of this message need to be communicated with the patient directly, if the patient is not active onMyChart. If the patient is active on MyChart, they will receive notification of the communication/outcome via AiCurist. documented in this encounter Plan of Treatment Upcoming Encounters Date Type Department Care Team (Late st Contact Info) Description 07/19/2025 8:40 AM EST Office Visit [facility] [address] [place] [address] João Reyes MD [address] [place] [address] documented as of this encounter [...] documented as of this encounter Care Teams Summer Counselor Relationship Specialty Start Date End Date Omar De La Torre MD [address] [facility] [address] [place] [address] PCP - General 11/24/20 documented as of this encounter
--- OUTSIDE RECORDS SUMMARY | 2025-06-30 12:08 | XMS_ITS | Encounter Summary ---
Author Organization Healthcare Address [address] [place] [address] Care Team Providers Care Procurement Intern Name Role Phone Omar De La Torre MD Primary Care Provider [phone] Reason for Visit * Reason Onset Date Comments Med Refill 05/07/2021 Encounter Details Date Type Department Care Team (Late st Contact Info) Description 05/07/2021 Refill [facility] [address] [place] [address] João Reyes MD [address] [address] Social History Tobacco Use Types [...] optimal time of day to reach caller: [phone] Note: Please do not reply to this message. Follow-up communication and further actions as a result of this message need to be communicated with the patient directly, if the patient is not active onMyChart. If the patient is active on MyChart, they will receive notification of the communication/outcome via PeopleAdminhart. documented in this encounter Plan of Treatment Upcoming Encounters Date Type Department Care Team (Late st Contact Info) Description 07/19/2025 8:40 AM EST Office Visit [facility] [address] [place] [address] João Reyes MD [address] [address] documented as of this encounter Visit Diagnoses Not on filedocumented in this encounter Additional Health Concerns Assessment Noted Time A fall risk assessment has been complete d for the patient 04/03/2021 11:28 AM EDT documented as of this encounter Care Teams Procurement Intern Relationship Specialty Start Date End Date Omar De La Torre MD 1210 [facility] [address] [place] [address] PCP - General 11/24/20 documented as of this encounter
--- OUTSIDE RECORDS SUMMARY | 2025-06-30 12:08 | XMS_ITS | Encounter Summary ---
Author Organization Healthcare Address [address] [place] [address] Care Team Providers Care Landing Gear Mechanic Name Role Phone Omar De La Torre MD Primary Care Provider [phone] Reason for Visit * Reason Onset Date Comments HCN - Rx Refill Request 10/05/2021 Encounter Details Date Type Department Care Team (Late st Contact Info) Description 10/05/2021 Telephone [facility] [address] [place] [address] João Reyes MD [address] [address] HCN - Rx Refill Request [...] Preferred Pharmacy & Location: [facility] Days of medication remaining (if under 3 days please sandra as urgent): 0 Best contact number and optimal time of day to reach caller: [phone] Additional comments/information from caller: Note: Please do not reply to this message. Follow-up communication and further actions as a result of this message need to be communicated with the patient directly, if the patient is not active onMyChart. If the patient is active on MyChart, they will receive notification of the communication/outcome via [employer] B[employer]S. documented in this encounter Plan of Treatment Upcoming Encounters Date Type Department Care Team (Late st Contact Info) Description 07/19/2025 8:40 AM EST Office Visit [facility] [address] [place] [address] João Reyes MD [address] [address] documented as of this encounter Visit Diagnoses Not on filedocumented in this encounter Additional Health Concerns Assessment Noted Time A fall risk assessment has been complete d for the patient 09/11/2021 10:48 AM EST documented as of this encounter Care Teams Landing Gear Mechanic Relationship Specialty Start Date End Date Omar De La Torre MD 1210 [facility] [address] [place] [id number] PCP - General 11/24/20 documented as of this encounter
--- OUTSIDE RECORDS SUMMARY | 2025-06-30 12:08 | XMS_ITS | Encounter Summary ---
Author Organization Healthcare Address [address] [place] [address] Care Team Providers Care Blood Collector Name Role Phone Omar De La Torre MD Primary Care Provider [phone] Encounter Details Date Type Department Care Team (Late st Contact Info) Description 09/26/2021 Lab Requisition [facility] [address] [place] [address] João Reyes MD [address] [address] Benign neoplasm of other specified sites Social [...] AM EST Office Visit [facility] [address] [place] [address] João Reyes MD [address] [address] documented as of this encounter Procedures Procedure Name Priority Date/Time Associated Diagnosis Comments SURGICAL PATHOLOGY EXAM Routine 09/26/2021 Benign neoplasm of other specified sites documented in this encounter Results * Surgical Pathology Exam (09/26/2021) Case Report Surgical Pathology Case: [id number] Authorizing Provider: João Reyes MD Collected: 09/26/2021 Ordering Location: [facility] Lab Received: 09/26/2021 1239 Pathologist: Komal [...] ORDERABLES Alisha boone Result Performing Organization Address City/State/[facility] Co de Phone Number HEALTHCARE LAB [address] [place] [address] documented in this encounter Visit Diagnoses Diagnosis Benign neoplasm of other specified sites documented in this encounter Additional Health Concerns Assessment Noted Time A fall risk assessment has been complete d for the patient 09/11/2021 10:48 AM EST documented as of this encounter Care Teams Blood Collector Relationship Specialty Start Date End Date Omar De La Torre MD [address] [place] [address] [address] [place] [address] PCP - General 11/24/20 documented as of this encounter
--- OUTSIDE RECORDS SUMMARY | 2025-06-30 12:08 | XMS_ITS | Clinical Summary ---
Author Organization [facility] Address [address] [place] [address] Care Team Providers Care Communications Systems Engineer Name Role Phone Mason Cleaning MD Primary Care Provider [phone] Allergies Active Allergy Reactions Criticality Noted Date [...] C SCREENING 11/25/2016 INFLUENZA VACCINE 02/11/2025 Insurance [employer] Care Teams Communications Systems Engineer Relationship Specialty Start Date End Date Mason Cleaning MD [facility] [facility] [address] ATTN: FE CARDOZO [id number] PCP - General Emergency Medicine 09/20/16
== END 2025-06-29 23:59 | disposition home or self-care (01) ==
LOC: LAB.DROPOF 06-30 10:44
PROVIDERS: PCP Internal Medicine; Visit Provider Internal Medicine
DX: E11.59 Type 2 diabetes mellitus with other circulatory complications (principal); E11.42 Type 2 diabetes mellitus with diabetic polyneuropathy; I10 Essential (primary) hypertension; E78.5 Hyperlipidemia, unspecified
CPT/HCPCS: 80053; 80061; 82043; 82570; 83036; 85025

== ENCOUNTER 2025-06-30 10:22 | Outpatient (CLI) | payer MEDICARE, SELFPAY ==
--- NOTE | 2025-06-30 10:15 | CT_ITS ---
FINAL REPORT TECHNIQUE: Thin section axial images were obtained from skull base to vertex without contrast. Coronal reconstruction images were obtained from the axial data. Exam was performed using dose reduction techniques such as automated exposure control, adjustment of the mA and kV according to patient size, and use of iterative reconstruction technique. CLINICAL HISTORY: Fall, blow to head, concussion, headaches with lito COMPARISON: 02/15/2025 FINDINGS: There is no mass effect or midline shift. There is no hydrocephalus. There is no intracranial hemorrhage. The posterior fossa is without acute abnormality. The basilar cisterns are preserved. The soft tissues are without acute abnormality. No acute osseous abnormality is identified. IMPRESSION: No acute intracranial abnormality. Reviewed, Interpreted and Dictated by Elisabeth Casarez MD Transcribed by Sana Shahid Authenticated and [facility]
--- OUTSIDE RECORDS SUMMARY | 2025-06-30 11:08 | XMS_ITS | Referral Summary ---
Author Organization [email or web address] ([place], [place], [place], [place], [place]) Address [address] [place] [address] Care Team Providers Care Edge Runner Name Role Phone Omar De La Torre MD Primary Care Provider [phone] Jose Ortega MD Unavailable [phone] Allergies Active Allergy Reactions Criticality Noted Date [...] Date Wild rded Speak language other than Mongolian at home Not on file 08/01/2023 Want [...] on file Medical Devices Implanted Type Area Database Design Analyst Device Identifier Shelf Expiration Date Model / Serial / Lot Bone Vivigen Formable Bl-1600-001 - [id number] Implanted:Qty : 1 on 10/30/2022 by Duane Friedman MD at [facility] IMPLANTS N/A: Spine Cervical LIFENET:LIFENET TRANSPLANT SRV 10/11/2023 BL-1600-0 01 / [id number] / Cage Eit Cif H 5mm 8d S [id number] - [id number] Implanted:Qty : 1 on 10/30/2022 by Duane Friedman MD at [facility] IMPLANTS N/A: Spine Cervical J &J:DEPUY:DEPUY SPINE 01/10/2026 [id number] / / [id number] Cage Eit Cif H 5mm 8d S [id number] - [id number] Implanted:Qty : 1 on 10/30/2022 by Duane Friedman MD at [facility] IMPLANTS N/A: Spine Cervical J &J:DEPUY:DEPUY SPINE 07/13/2023 [id number] / / [id number] Cage Eit Cif H 5mm 8d S [id number] - [id number] Implanted:Qty : 1 on 10/30/2022 by Duane Friedman MD at [facility] IMPLANTS N/A: Spine Cervical J &J:DEPUY:DEPUY SPINE 01/10/2026 [id number] / / [id number] Plt Ant Skyln Hybrd Lvl3 45mm 1868-03-045 - [id number] Implanted:Qty : 1 on 10/30/2022 by Duane Friedman MD at [facility] IMPLANTS N/A: Neck J &J:DEPUY:DEPUY SPINE 0 45 / 45 / Scr Skyln Vari Sd 18mm 1867-50-018 - [id number] Implanted:Qty : 8 on 10/30/2022 by Duane Friedman MD at [facility] IMPLANTS N/A: Neck J &J:DEPUY:DEPUY SPINE 0 18 / 18 / Insurance BLUE CROSS/BLUE SHIELD Advance Directives For more information, please contact: [phone] Documents on File Type Date Recorded Patient Teaching Aide Expl anation Advance Directives and Livin g Will 10/30/2022 6:04 AM * Full Code (Latest Code Status on File) Date Activated Date Inactivated Comments 10/30/2022 10:48 AM 11/04/2022 1:55 PM Care Teams Edge Runner Relationship Specialty Start Date End Date Omar De La Torre MD [address] [place] [address] PCP - General General Internal Medicine 10/16/22 Jose Ortega MD [facility] [address] [place] [address] Neurology 06/27/25
--- OUTSIDE RECORDS SUMMARY | 2025-06-30 11:08 | XMS_ITS | Encounter Summary ---
Author Organization [facility] Address [address] [place] [address] Care Team Providers Care Graphic Arts Instructor Name Role Phone Omar De La Torre MD Primary Care Provider [phone] Reason for Visit * Reason Onset Date Comments HCN - Patient Message 06/07/2025 Encounter Details Date Type Department Care Team (Late st Contact Info) Description 06/07/2025 Telephone [facility] [address] [place] [address] João Reyes MD [address] [address] HCN - Patient Message Social [...] Telephone Encounter - Danielle Wang RN - 06/08/2025 9:07 AM EST Called and spoke to Ms. Kennedy, she had a fall, she has been treated and splinted, we have bookedher for 2 week f/u with Dr. Reyes for new xrays and evaluation. * Telephone Encounter - Violette Dominguez - 06/07/2025 3:52 PM EST Clinical Concern/Question Reason for Call: Pt is requesting call back regarding of a broken screw left hand please call went yesterday to doctor Best contact number: [phone] Optimal time of day to reach caller: ANYTIME Additional comments/information from caller: None Note: Please do not reply to this message. Follow-up communication and further actions as a result of this message need to be communicated with the patient directly, if the patient is not active onMyChart. If the patient is active on MyChart, they will receive notification of the communication/outcome via [employer]. documented in this encounter Plan of Treatment Upcoming Encounters Date Type Department Care Team (Late st Contact Info) Description 07/19/2025 8:40 AM EST Office Visit [facility] [address] [place] [address] João Reyes MD [address] [phone] documented as of this encounter Goals Goal Patient Goal Type Associated Problems Recent Progress Patient-Stated? Author Patient will verbalize understanding of orthotic wear , care and precautions. Occupational Therapy No Johanne Woodall documented as of this encounter Visit Diagnoses Not on filedocumented in this encounter Additional Health Concerns Assessment Noted Time A fall risk assessment has been complete d for the patient 04/26/2025 10:19 AM EDT A Body Mass Index follow-up plan has been documented for the patient 05/05/2025 10:45 AM EDT documented as of this encounter Care Teams Graphic Arts Instructor Relationship Specialty Start Date End Date Omar De La Torre MD [facility] [address] [place] [address] PCP - General 11/24/20 documented as of this encounter
--- OUTSIDE RECORDS SUMMARY | 2025-06-30 11:08 | XMS_ITS | Clinical Summary ---
Author Organization [facility] Address [address] [place] [address] Phone Care Team Providers Care Streets And Buildings Decorator Name Role Phone Unavailable Unavailable Conditions or Problems No information available. Medications No information available. Medications Administered No information available. Allergies, Adverse Reactions, Alerts No information available. Results No information available. Plan of Care No information available. Procedures No information available. Vital Signs No information available. Immunizations No information available. Advance Directives No information available.
--- OUTSIDE RECORDS SUMMARY | 2025-06-30 11:08 | XMS_ITS | Clinical Summary ---
Author Organization [employer] ([place], [place], [place], [place], [place]) Address [address] [place] [address] Care Team Providers Care Castables Worker Name Role Phone Omar De La Torre MD Primary Care Provider [phone] Jose Ortega MD Unavailable [phone] Allergies Active Allergy Reactions Criticality Noted [...] Date Wild rded Speak language other than Indonesian at home Not on file 08/01/2023 Want [...] 10/25/2025 10/25/2024 Medical Devices Implanted Type Area Hand Sewer Device Identifier Shelf Expiration Date Model / Serial / Lot Bone Vivigen Formable Sm Bl-1600-001 - [id number] Implanted:Qty : 1 on 10/30/2022 by Duane Friedman MD at [facility] IMPLANTS N/A: Spine Cervical LIFENET:LIFENET TRANSPLANT SRV 10/11/2023 BL-1600-0 01 / [id number] / Cage Eit Cif H 5mm 8d S [id number] - [id number] Implanted:Qty : 1 on 10/30/2022 by Duane Friedamn MD at [facility] IMPLANTS N/A: Spine Cervical J &J:DEPUY:DEPUY SPINE 01/10/2026 [id number] / / [id number] Cage Eit Cif H 5mm 8d S [id number] - [id number] Implanted:Qty : 1 on 10/30/2022 by Duane Friedman MD at [facility] IMPLANTS N/A: Spine Cervical J &J:DEPUY:DEPUY SPINE 07/13/2023 [id number] / / [id number] Cage Eit Cif H 5mm 8d S [id number] - [id number] Implanted:Qty : 1 on 10/30/2022 by Duane Friedman MD at [facility] IMPLANTS N/A: Spine Cervical J &J:DEPUY:DEPUY SPINE 01/10/2026 [id number] / / [id number] Plt Ant Skyln Hybrd Lvl3 45mm 1867-09-045 - [id number] Implanted:Qty : 1 on 10/30/2022 by Duane Friedman MD at [facility] IMPLANTS N/A: Neck J &J:DEPUY:DEPUY SPINE 1867-03-0 45 / 03-0 45 / Scr Skyln Vari Sd 18mm 50-018 - [id number] Implanted:Qty : 8 on 10/30/2022 by Duane Friedman MD at [facility] IMPLANTS N/A: Neck J &J:DEPUY:DEPUY SPINE 50-0 18 / 50-0 18 / Insurance Arnoldo [address] [place] [id number] BLUE CROSS/BLUE SHIELD Advance Directives For more information, please contact: [phone] Documents on File Type Date Recorded 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
--- OUTSIDE RECORDS SUMMARY | 2025-06-30 11:08 | XMS_ITS | Encounter Summary ---
Author Organization [facility] Address [address] [place] [address] Care Team Providers Care Network Support Specialist Name Role Phone Omar De La Torre MD Primary Care Provider [phone] Reason for Visit * Reason Onset Date Comments HCN - Patient Message 06/28/2025 Encounter Details Date Type Department Care Team (Late st Contact Info) Description 06/28/2025 Telephone [facility] [address] [place] [address] João Reyes MD [address] [address] HCN - Patient Message Social [...] Telephone Encounter - Danielle Wang RN - 06/28/2025 12:22 PM EST Called and got her appointment rescheduled * Telephone Encounter - Cherry Colon - 06/28/2025 9:36 AM EST Clinical Concern/Question BRGOCH Reason for Call: Patient called stating she cannot make it in time for her appt today. She is asking for Danielle to call her back to see if she can work her in soon. Please advise. Best contact number: [phone] (mobile) Optimal time of day to reach caller: ANYTIME Additional comments/information from caller: None Note: Please do not reply to this message. Follow-up communication and further actions as a result of this message need to be communicated with the patient directly, if the patient is not active onMyChart. If the patient is active on MyChart, they will receive notification of the communication/outcome via [employer]. documented in this encounter Plan of Treatment Upcoming Encounters Date Type Department Care Team (Late st Contact Info) Description 07/19/2025 8:40 AM EST Office Visit [facility] [address] [place] [phone] João Reyes MD [address] [place] [address] documented as of this encounter Goals Goal [...] documented as of this encounter Care Teams Network Support Specialist Relationship Specialty Start Date End Date Omar De La Torre MD [address] [facility] [address] [place] [address] PCP - General 11/24/20 documented as of this encounter
--- OUTSIDE RECORDS SUMMARY | 2025-06-30 11:09 | XMS_ITS | Clinical Summary ---
Author Organization [facility] Address [address] [place] [place] [address] Care Team Providers Care Director Security Management Name Role Phone Omar De La Torre MD Primary Care Provider Allergies Active Allergy Reactions Criticality Noted Date [...] Active Additional Information Patient not taking.Reported on 04/26/2025 carvedilol (Coreg) 3.125 MG tablet Take 1 tablet (3.125 mg total) by mouth 2 (two) times a day with meals. 60 tablet 11 02/22/20 Active ferrous sulfate 324 (65 Fe) MG EC tablet Take 1 tablet (324 mg total) by mouth 1 (one) time each day. Do not crush, chew, or split. 30 tablet 1 02/23/20 Active Additional Information Patient not taking.Reported on 04/26/2025 promethazine (Phenergan) 12.5 MG tabletIndications: Right wrist [...] FINISH ALL MEDICINE -- Active HYDROcodone-acetam inophen ([place]) 7.5-325 MG tablet TAKE ONE TABLET BY [...] needed for severe pain. 5 tablet 11/11/19 Active famotidine (Pepcid) 20 MG tablet Take 1 tablet by mouth nightly. Active doxycycline (Vibramycin) 100 MG capsule TAKE ONE CAPSULE BY MOUTH TWICE DAILY FOR 10 DAYS -- FINISH ALL MEDICINE -- Active Active Problems Problem Noted Date Diagnosed Date Scar contracture 08/19/2024 Wrist pain, left 11/13/2021 Overview (11/13/2021): Added automatically from request for surgery [id number] Depression with anxiety 02/13/2021 Generalized OA 02/13/2021 HTN (hypertension) 02/13/2021 Obesity 02/13/2021 Hematoma of left hip 02/13/2021 Acetabular labrum tear, left, sequela 01/18/2021 Lumbar radiculopathy 05/01/2020 Hip pain 04/18/2020 Iron deficiency anemia 09/29/2016 Status post bariatric surgery 09/29/2016 Spondylolisthesis 03/13/2015 Resolved Problems Problem Noted Date Diagnosed Date Resolved Date Insomnia 02/13/2021 04/03/2025 Physical deconditioning 03/15 Encounters Date Type Department Care Team Description 06/28/2025 Telephone [facility] [address] [place] [address] João Reyes MD HCN - Patient Message 06/07/2025 Telephone [facility] [address] [place] [address] João Reyes MD HCN - Patient Message 04/26/2025 10:40 AM EDT Office Visit [facility] [address] [place] [address] João Reyes MD 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 [address], [address] [place] [address] Hand pain, left Discharge Disposition: Home or Self Care 04/26/2025 Travel 04/25/2025 Travel from Last 3 Months Family History [...] Sign Reading Time Taken Comments Blood Pressure 137/78 04/26/2025 10:21 AM EDT Pulse 71 04/26/2025 10:21 AM EDT Temperature 36.5 C (97.7 F) 11/10/2024 11:45 AM EDT Respiratory Rate 14 11/10/2024 11:55 AM EDT Oxygen Saturation 99% 04/26/2025 10:21 AM EDT Inhaled Oxygen Concentration - - Weight 90.7 kg (200 lb) 04/26/2025 10:21 AM EDT Height 170.2 cm (5' 7 ) 04/26/2025 10:21 AM EDT Body Mass Index 31.32 04/26/2025 10:21 AM EDT Plan of Treatment Upcoming Encounters Date Type Department Care Team (Late st Contact Info) Description 07/19/2025 8:40 AM EST Office Visit [facility] [address] [place] [phone] João Reyes MD [address] [place] [address] Health Maintenance Due Date Last Done Comments [facility]-Bone Density Scan 1960 [facility]-Medicare Annual Wellness (AWV) 1960 [facility]-Infant/Child/Adol SDOH Screenings 1960 [facility]- SDOH Screenings 1978 [facility]-Adult SDOH Screenings 1978 [facility]-Pneumococcal Vaccine: 50+ Years (1 of 2 - PCV) 1979 CT Colonography 2005 Colonoscopy 2005 FIT-DNA 2005 FIT 2005 FOBT 2005 Sigmoidoscopy 2005 [facility]-Colorectal Cancer Screening 2005 [facility]-Breast Cancer Screening 2010 [facility]-RSV Vaccine: 60+ Years or (1 - Risk 50-74 years 1-dose series) 2010 [facility]-Zoster Vaccines (1 of 2) 2010 RPB-WJCQR-57 Vaccine (3 - Pfizer risk series) 09/19/2020 08/22/2020, 07/11/2020 [facility]-Depression Screening 12/01/2024 12/02/2023 [facility]-DTaP,Tdap,and Td Vaccines (2 - Td or Tdap) 02/15/2035 02/15/2025 [facility]-Hepatitis C Screening Completed 02/12/2021 [facility]-Diabetes: Hemoglobin A1C Discontinued 02/14/2021 [facility]-Obesity Intervention Completed 025, 11/25/2024, 08/19/2024, Additional history exists [facility]-Influenza Vaccine Completed 05/16/2025 HPV Vaccines (No Doses Required) Completed [facility]-HIB Vaccines Aged Out No longer e [...] Johanne Grimes Medical Devices Implanted Type Area Plastic Installer Device Identifier Shelf Expiration Date Model / Serial / Lot Pain Pump Pain Pump N/A: Back Procedures Procedure Name Priority Date/Time Associated Diagnosis Comments XR HAND LEFT 3+ VIEWS Routine 04/26/2025 10:33 AM EDT Hand pain, left HEMOGLOBIN A1C Routine 02/14/2021 3:25 AM EDT HEPATITIS C ANTIBODY - ED W/REFLEX TO HCV QUANT PCR STAT 02/12/2021 8:20 PM EDT from Last 3 Months or Most Recently Relevant to Health Maintenance Results * XR Hand Left 3+ Views (04/26/2025 10:33 AM EDT) Anatomical Region Laterality Modality Upper Extremities, Hand Left Digital Radiography Impressions 04/26/2025 10:44 AM EDT Screw fixation of the thumb metacarpal phalangeal joint with minimal lucency around the screw within the thumb proximal phalanx. Partial visualized dorsal plate and screw fixation of the wrist with continued lucency around the plate and screws at the level of the middle finger metacarpal with fractured screw. Deformity of the index finger metacarpal neck consistent with angulated fracture which is new compared to prior exam but appears subacute. CRITICAL RESULT: No. COMMUNICATION: Per this written report. Drafted by Darwin Pearce MD on 04/26/2025 10:42 AM Final report signed by Darwin Pearce MD on 04/26/2025 10:44 AM Narrative 04/26/2025 10:44 AM EDT CLINICAL INDICATION: pain TECHNIQUE: XR HAND LEFT 3+ VIEWS COMPARISON: 10/20/2024 FINDINGS: Redemonstration of screw fixation of the thumb metacarpal phalangeal joint. Dorsal wrist fusion is seen extending to the middle finger metacarpal. There is continued lucency around the plate at the level of the middle finger metacarpal with fracturing of the distal most screw in the middle finger metacarpal. Continued lucency around the screws of the middle finger plate and screw construct. Marked narrowing of the ring finger PIP joint with soft tissue swelling. There is deformity of the index finger metacarpal neck which is new compared to the prior exam but appears remote. Procedure Note Darwin Pearce MD - 04/26/2025 CLINICAL INDICATION: pain TECHNIQUE: XR HAND LEFT 3+ VIEWS COMPARISON: 10/20/2024 FINDINGS: Redemonstration of screw fixation of the thumb metacarpal phalangealjoint. Dorsal wrist fusion is seen extending to the middle fingermetacarpal. There is continued lucency around the plate at the level ofthe middle finger metacarpal with fracturing of the distal most screw inthe middle finger metacarpal. Continued lucency around the screws of themiddle finger plate and screw construct. Marked narrowing of the ringfinger PIP joint with soft tissue swelling. There is deformity of theindex finger metacarpal neck which is new compared to the prior exam butappears remote. IMPRESSION: Screw fixation of the thumb metacarpal phalangeal joint with minimallucency around the screw within the thumb proximal phalanx. Partial visualized dorsal plate and screw fixation of the wrist withcontinued lucency around the plate and screws at the level of the middlefinger metacarpal with fractured screw. Deformity of the index finger metacarpal neck consistent with angulatedfracture which is new compared to prior exam but appears subacute. CRITICAL RESULT: No. COMMUNICATION: Per this written report. Drafted by Darwin Pearce MD on 04/26/2025 10:42 AM Final report signed by Darwin Pearce MD on 04/26/2025 10:44 AM us João Reyes MD IMG XR PROCEDURES Final Resul t * Hemoglobin A1c (02/14/2021 3:25 AM EDT) [...] Adults <6.0% Children and Adolescents <7.5% Source: [place] [employer]. Standards of medical care in diabetes,2017. Diabetes Care.2017:40 (suppl 1):S1-S135. HbA1c assay performed by an ion-exchange chromatography method that is certified traceable to the DCCT. us Liana FELICIANO LAB BLOOD ORDERABLES Final R esult Performing Organization Address City/[facility]/ZIP Co de Phone Number HEALTHCARE [facility] [address] [place] [address] * [place] Hepatitis C Antibody (02/12/2021 8:20 PM EDT) [facility] Signature Hepatitis C Antibody Negative Negative 02/12/2021 10:17 PM EDT [facility] Blood Venous blood specimen / Unknown Venipuncture / Unknown 02/12/2021 8:20 PM EDT 02/12/2021 8:34 PM EDT us Joanne Umaña MD LAB BLOOD ORDERABLES Final Res ult Performing Organization Address [facility] Co de Phone Number HEALTHCARE [facility] [address] [place] [address] from Last 3 Months or Most Recently Relevant to Health Maintenance Insurance [facility] MEDICARE Advance Directives * Full Code (Latest Code Status on File) Date Activated Date Inactivated Comments 02/13/2021 4:57 AM 02/21/2021 4:22 PM Question Answer Comments Patient has decision-making capacity? Yes * Full Code Date Activated Date Inactivated Comments 01/18/2021 4:57 PM 02/05/2021 4:59 PM Question Answer Comments Patient has decision-making capacity? Yes Care Teams Director Security Management Relationship Specialty Start Date End Date Omar De La Torre MD [address] [facility] [address] [place] [address] PCP - General 11/24/20
--- OUTSIDE RECORDS SUMMARY | 2025-06-30 11:09 | XMS_ITS | Encounter Summary ---
Author Organization Healthcare Address [address] [place] [address] Care Team Providers Care Production Illustrator Name Role Phone Omar De La Torre MD Primary Care Provider Reason for Visit * Reason Onset Date Comments Med Refill 05/07/2021 Encounter Details Date Type Department Care Team (Late st Contact Info) Description 05/07/2021 Refill [facility] [address] [place] [phone] João Reyes MD [address] [address] Social History Tobacco Use Types [...] optimal time of day to reach caller: [phone] Note: Please do not reply to this message. Follow-up communication and further actions as a result of this message need to be communicated with the patient directly, if the patient is not active onMyChart. If the patient is active on MyChart, they will receive notification of the communication/outcome via [employer]. documented in this encounter Plan of Treatment Upcoming Encounters Date Type Department Care Team (Late st Contact Info) Description 07/19/2025 8:40 AM EST Office Visit [facility] [address] [place] [address] João Reyes MD [address] [phone] documented as of this encounter Visit Diagnoses Not on filedocumented in this encounter Additional Health Concerns Assessment Noted Time A fall risk assessment has been complete d for the patient 04/03/2021 11:28 AM EDT documented as of this encounter Care Teams Production Illustrator Relationship Specialty Start Date End Date Omar De La Torre MD [address] [facility] [address] [place] [address] PCP - General 11/24/20 documented as of this encounter
--- OUTSIDE RECORDS SUMMARY | 2025-06-30 11:09 | XMS_ITS | Encounter Summary ---
Author Organization Healthcare Address [address] [place] [address] Care Team Providers Care Tools And Parts Attendant Name Role Phone Omar De La Torre MD Primary Care Provider [phone] Encounter Details Date Type Department Care Team (Late st Contact Info) Description 09/26/2021 Lab Requisition [facility] [address] [place] [address] João Reyes MD [address] [address] Benign neoplasm of other specified sites Social [...] Description 07/19/2025 8:40 AM EST Office Visit [facility] [address] [place] [address] João Reyes MD [address] [address] documented as of this encounter Procedures Procedure Name Priority Date/Time Associated Diagnosis Comments SURGICAL PATHOLOGY EXAM Routine 09/26/2021 Benign neoplasm of other specified sites documented in this encounter Results * Surgical Pathology Exam (09/26/2021) Case Report Surgical Pathology Case: [id number] Authorizing Provider: João Reyes MD Collected: 09/26/2021 Ordering Location: [facility] Lab Received: 09/26/2021 1239 Pathologist: Komal [...] ORDERABLES Alisha boone Result Performing Organization Address City/State/[facility] Co de Phone Number HEALTHCARE LAB [address] [place] [address] documented in this encounter Visit Diagnoses Diagnosis Benign neoplasm of other specified sites documented in this encounter Additional Health Concerns Assessment Noted Time A fall risk assessment has been complete d for the patient 09/11/2021 10:48 AM EST documented as of this encounter Care Teams Tools And Parts Attendant Relationship Specialty Start Date End Date Omar De La Torre MD [address] [place] [address] [address] [place] [address] PCP - General 11/24/20 documented as of this encounter
--- OUTSIDE RECORDS SUMMARY | 2025-06-30 11:09 | XMS_ITS | Clinical Summary ---
Author Organization [facility] Address [address] [place] [address] Care Team Providers Care Pharmacy Customer Care Specialist Name Role Phone Mason Cleaning MD Primary Care Provider [phone] Allergies Active Allergy Reactions Criticality Noted Date [...] C SCREENING 11/25/2016 INFLUENZA VACCINE 02/11/2025 Insurance [facility] [employer] Care Teams Pharmacy Customer Care Specialist Relationship Specialty Start Date End Date Mason Cleaning MD [facility] [facility] [address] ATTN: FE CARDOZO [id number] PCP - General Emergency Medicine 09/20/16
--- OUTSIDE RECORDS SUMMARY | 2025-06-30 11:09 | XMS_ITS | Encounter Summary ---
Author Organization Healthcare Address [address] [place] [address] Care Team Providers Care Rn Clinical Trials Name Role Phone Omar De La Torre MD Primary Care Provider [phone] Reason for Visit * Reason Onset Date Comments HCN - Rx Refill Request 10/05/2021 Encounter Details Date Type Department Care Team (Late st Contact Info) Description 10/05/2021 Telephone [facility] [address] [place] [address] João Reyes MD [address] [address] HCN - Rx Refill Request [...] Preferred Pharmacy & Location: [facility] [place] [facility] Days of medication remaining (if under 3 days please sandra as urgent): 0 Best contact number and optimal time of day to reach caller: [phone] Additional comments/information from caller: Note: Please do not reply to this message. Follow-up communication and further actions as a result of this message need to be communicated with the patient directly, if the patient is not active onMyChart. If the patient is active on MyChart, they will receive notification of the communication/outcome via Toodalu. documented in this encounter Plan of Treatment Upcoming Encounters Date Type Department Care Team (Late st Contact Info) Description 07/19/2025 8:40 AM EST Office Visit [facility] [address] [place] [address] João Reyes MD [address] [address] documented as of this encounter Visit Diagnoses Not on filedocumented in this encounter Additional Health Concerns Assessment Noted Time A fall risk assessment has been complete d for the patient 09/11/2021 10:48 AM EST documented as of this encounter Care Teams Rn Clinical Trials Relationship Specialty Start Date End Date Omar De La Torre MD [address] [facility] [address] [place] [id number] PCP - General 11/24/20 documented as of this encounter
== END 2025-06-30 23:59 | disposition home or self-care (01) ==
LOC: RAD 10:22
PROVIDERS: PCP Internal Medicine; Visit Provider Internal Medicine
DX: S06.0XAA Concussion with loss of consciousness status unknown, initial encounter (principal); W19.XXXA Unspecified fall, initial encounter
CPT/HCPCS: 70450